=== PATIENT | female | born 1950 | race Caucasian/White ===

== ENCOUNTER 2024-08-22 05:09 | Emergency (ER) | payer MEDICARE, SELFPAY ==
[2024-08-22 05:10] VITALS: BP 111/70; PULSE 74; RESP 16; TEMP 36.4; O2SAT 98; BMI 37.0
--- OUTSIDE RECORDS SUMMARY | 2024-08-22 05:41 | XMS RPT_ITS | CCD ---
Author Organization [facility] Care Team Providers Care Auto Appraiser Name Role Phone GAYLA DICKENS Unavailable Unavailable GAYLA DICKENS Unavailable Unavailable IMCA Unavailable Unavailable Silvestre Chance DO Primary Care Provider Sonia Fox MD Unavailable Silvestre Chance DO Primary Care Provider Sonia Fox MD Unavailable Silvestre Chance DO Primary Care Provider Silvestre Chance DO Primary Care Provider Sonia Fox MD Unavailable Sam Feldman DO Unavailable Eliu Diaz Unavailable Unavailable Rajesh Ignacio PT Unavailable Sam Feldman DO Unavailable Silvestre Chance DO Primary Care Provider KAYLA JEWELL Referring Unavailable SILVESTRE CHANCE Primary Care Unavailable Mateus MORALES Rajesh Unavailable Sonia Fox MD Unavailable Magdiel SUPERVISOR SIGN SHOP.Kayla FAY Unavailable Jerald SUPERVISOR SIGN SHOPKianna BARAJAS Unavailable DYLAN LIANG Attending Unavailable SILVESTRE CHANCE Primary Care Unavailable DYLAN LIANG Attending Unavailable SILVESTRE CHANCE Primary Care Unavailable DASHAWN LOWERY Attending Unavailable SILVESTRE CHANCE Primary Care Unavailable DASHAWN LOWERY Attending Unavailable CHANCE, SILVESTRE L Primary Care Unavailable MELINDA TELLEZ Attending Unavailable CHANCE, SILVESTRE L Primary Care Unavailable MELINDA TELLEZ Attending Unavailable CHANCE, SILVESTRE L Primary Care Unavailable SisBrda Marquezin Unavailable Unavailable Sam Feldman Unavailable Nela Ferreira MD Unavailable Nela Ferreira MD Unavailable Mateus MORALES, Rajesh Unavailable NELA FERREIRA Referring Unavailable CHANCE, SILVESTRE Cesia Primary Care Unavailable NELA FERREIRA Referring Unavailable CHANCE, SILVESTRE Cesia Primary Care Unavailable АННА PEREZ Attending Unavailable NELA FERREIRA Referring Unavailable CHANCE, SILVESTRE Cesia Primary Care Unavailable АННА PEREZ Attending Unavailable NELA FERREIRA Referring Unavailable CHANCE, SILVESTRE Cesia Primary Care Unavailable АННА PEREZ Attending Unavailable NELA FERREIRA Referring Unavailable CHANCE, SILVESTRE Cesia Primary Care Unavailable NELA FERREIRA Referring Unavailable CHANCE, SILVESTRE Cesia Primary Care Unavailable GILDARDO MATHIAS Consulting Unavailable NELA FERREIRA Attending Unavailable NELA FERREIRA Admitting Unavailable CHANCE, SILVESTRE Cesia Primary Care Unavailable NELA FERREIRA Referring Unavailable CHANCE, SILVESTRE Cesia Primary Care Unavailable SAM FABIAN Referring Unavailable CHANCE, SILVESTRE Cesia Primary Care Unavailable NELA FERREIRA Referring Unavailable NELA FERREIRA Attending Unavailable CHANCE, SILVESTRE Cesia Primary Care Unavailable NELA FERREIRA Referring Unavailable CHANCE, SILVESTRE L Primary Care Unavailable CHANCE, SILVESTRE L Primary Care Unavailable SAM FABIAN Attending Unavailable CHANCE, SILVESTRE L Primary Care Unavailable EREN COYLE Referring Unavailable NELA FERREIRA Attending Unavailable CHANCE, SILVESTRE L Primary Care Unavailable CHANCE, SILVESTRE L Primary Care Unavailable CHANCE, SILVESTRE L Attending Unavailable CHANCE, SILVESTRE L Primary Care Unavailable SANDY MERIDA Attending Unavailable CHANCE, SILVESTRE L Primary Care Unavailable EREN COYLE Referring Unavailable CHANCE, SILVESTRE L Primary Care Unavailable SONIA IBARRA Referring Unavailable CHANCE, SILVESTRE L Primary Care Unavailable EREN COYLE Attending Unavailable SELF Referring Unavailable CHANCE, SILVESTRE L Primary Care Unavailable AMBER NASH Attending Unavailable CHANCE, SILVESTRE L Primary Care Unavailable CHANCE, SILVESTRE L Primary Care Unavailable CHANCE, SILVESTRE L Primary Care Unavailable NELA FERREIRA E Attending Unavailable CHANCE, SILVESTRE L Primary Care Unavailable FACUNDO TEMPLE Attending Unavailable CHANCE, SILVESTRE L Primary Care Unavailable AMBER NASH Attending Unavailable CHANCE, SILVESTRE L Primary Care Unavailable NELA FERREIRA E Attending Unavailable CHANCE, SILVESTRE L Primary Care Unavailable CHANCE, SILVESTRE L Primary Care Unavailable АННА PEREZ Attending Unavailable NELA FERREIRA Referring Unavailable SILVESTRE CHANCE Primary Care Unavailable АННА PEREZ Attending Unavailable NELA FERREIRA Referring Unavailable Gama ROMERON.OVEN BAKER, Sandy Coleman Unavailable Allergies Allergy Classification Reported Allergen(s) Allergy Type Date of Onset Reaction(s) Facility (20 sources) atorvastatin; Translations: [ATORVASTATIN CALCIUM] Drug Allergy 6 Myalgia [facility] Repository (20 sources) codeine; Translations: [CODEINE] Drug Allergy 8 Mental Status Change [facility] Repository (20 sources) rosuvastatin; Translations: [ROSUVASTATIN CALCIUM] Drug Allergy 6 Myalgia [facility] Repository (9 sources) HMG-CoA reductase inhibitor; Translations: [[id number] REDUCTASE INHIBITORS] Drug Allergy 5 Unknown [facility] Medications Current Medications Medication Drug Class(es) Dates Sig (Normalized) Sig (Original) acetaminophen 500 mg oral tablet (20 sources) Start: 08-15-2024 take 2 tablets by mouth every eight hours in the evening acetaminophen (TYLENOL) 500 mg tablet Take 2 tablets by mouth every 8 hours. 84 tablet 08/15/2024 2:46 PM EDT 08/15/2024 Active Start: 01-03-2023 End: 07-27-2023 take 2 tablets by mouth every eight hours as needed acetaminophen (TYLENOL) 500 mg tablet Take 2 tablets by mouth every 8 hours as needed for pain. 90 tablet 01/03/2023 07/27/2023 Discontinued Comment on above: Take 2 tablets by [facility] every 8 hours as needed for pain. ascorbic acid 500 mg oral tablet (20 sources) Vitamin C Start: 08-15-2024 End: 08-29-2024 take 1 tablet by mouth twice daily at mealtime ascorbic acid, vitamin C, (VITAMIN C) 500 mg tablet Take 1 tablet by mouth two times a day with meals for 27 doses. 27 tablet 08/15/2024 08/29/2024 Active End: 08-15-2024 take 4 tablets by mouth once daily ascorbic acid, vitamin C, (VITAMIN C) 500 mg tablet Take 2,000 mg by mouth once daily. 08/15/2024 Discontinued Comment on above: Take 2,000 mg by osiris once daily. aspirin 81 mg delayed release oral tablet (20 sources) Platelet Aggregation Inhibitor, Nonsteroidal Anti-inflammatory Drug Start: 08-15-2024 take 1 tablet by mouth twice daily in the evening aspirin, enteric coated (ASPIRIN, ENTERIC COATED) 81 mg EC tablet Take 1 tablet by mouth two times a day. 60 tablet 08/15/2024 2:46 PM EDT 08/15/2024 Active Start: 01-03-2023 End: 07-27-2023 take 1 tablet by mouth twice daily aspirin, enteric coated (ASPIRIN, ENTERIC COATED) 81 mg EC tablet Take 1 tablet by mouth two times a day for 28 days. 56 tablet 01/03/2023 07/27/2023 Discontinued Comment on above: Take 1 tablet by osiris two times a day for 28 days. B-Complex Plus (Pure Encapsulations) - 1qD stress/energy/hormones/d etox/weight loss (20 sources) Start: 07-20-19 18 take 1 capsule by mouth once daily B-Complex Plus (Pure Encapsulations) - 1qD stress/energy/hormones/ detox/weight loss Take 1 capsule by mouth once daily. 0 07/19/2017 Active Comment on above: Take 1 capsule by [facility] once daily. cholecalciferol 0.025 mg oral tablet (20 sources) Vitamin D take 1 tablet by mouth once daily cholecalciferol (VITAMIN D3) 1,000 unit tab tablet Take 1,000 Units by mouth once daily. Active Comment on above: Take 1,000 Units by mouth once daily. docusate sodium 100 mg oral capsule (18 sources) Start: 08-16-19 take 1 capsule by mouth twice daily in the evening docusate sodium (COLACE) 100 mg capsule Take 1 capsule by mouth two times a day. 28 capsule 08/15/2024 2:46 PM EDT 08/15/2024 Active Start: 01-03-2023 End: 02-02-2023 take 1 capsule by mouth every twelve hours as needed docusate sodium (COLACE) 100 mg capsule Take 1 capsule by mouth two times a day as needed for constipation. 60 capsule 01/03/2023 02/02/2023 Comment on above: Take 1 capsule by mo uth two times a day as needed for constipation. Magnesium (20 sources) Start: take 4 capsules by mouth once daily MAGNESIUM ORAL Take 135 Units by mouth once daily. Takes 4 capsules daily 01/04/2023 Active Start: 01-04-2023 take 4 capsules by m outh once daily MAGNESIUM ORAL Take 135 Units by mouth once daily. Takes 4 capsules daily 0 01/04/2023 Active take 6 capsules by m outh once daily MAGNESIUM ORAL Take 135 Units by mouth once daily. Takes 6 capsules daily 0 Active Comment on above: Take 135 Units by mo uth once daily. Takes 6 capsules daily Take 135 Units by mo uth once daily. Takes 4 capsules daily MEDICATION, NON-DATABASE (20 sources) MEDICATION, NON- DATABASE Medical Marijuana Cream Active MEDICATION, NON- DATABASE Medical Marijuana Cream 0 Active 24 hr metoprolol succinate 25 mg extended release oral tablet (20 sources) beta-Adrenergic Reina Start: 08-29-2023 End: 06-06-2024 take 1 tablet by mouth once daily metoprolol succinate ER (TOPROL XL) 25 mg 24 hr tablet Take 1 tablet by mouth once daily. 90 tablet 3 06/06/2024 Active Start: 08-29-2022 End: 08-28-2023 metoprolol succinate ER (TOP ROL XL) 25 mg 24 hr tablet Indications: PAF (paroxysmal atrial fibrillation) ([facility]) [The details of the medication are not available because there are pending changes by a home health clinician.] 90 tablet 3 08/29/2022 08/28/2023 Discontinued Start: 08-29-2021 End: 08-29-2022 take 1 tablet by mouth once daily metoprolol succinate ER (TOPROL XL) 25 mg 24 hr tablet Indications: PAF (paroxysmal atrial fibrillation) (HCC) Take 1 tablet by mouth once daily. 90 tablet 3 08/29/2022 Active Start: 08-18-2020 End: 08-26-2021 take 1 tablet by mouth once daily metoprolol succinate ER (TOPROL XL) 25 mg 24 hr tablet Indications: PAF (paroxysmal atrial fibrillation) (HCC) Take 1 tablet by mouth once daily. 90 tablet 3 08/18/2020 08/26/2021 Discontinued Comment on above: Take 1 tablet by [facility] once daily. [The details of the medication are not available because there are pending changes by a home health clinician.] OmegaGenics EPA-DHA 2400 (High Concentrate EPA/DHA liquid) (LearnSomething) (20 sources) Start: 12-21-2020 OmegaGenics EPA-DHA 2400 (High Concentrate EPA/DHA liquid) (LearnSomething) Take one teaspoon (5 ml) 1 times daily with food 12/21/2020 Active Start: 12-21-2020 OmegaGenics EP A-DHA 2400 (High Concentrate EPA/DHA liquid) (LearnSomething) [The details of the medication are not available because there are pending changes by a home health clinician.] 12/21/2020 Active Start: 12-21-2020 OmegaGenics EP A-DHA 2400 (High Concentrate EPA/DHA liquid) (LearnSomething) [The details of the medication are not available because there are pending changes by a home health clinician.] 0 12/21/2020 Active Start: 12-21-2020 OmegaGenics EP A-DHA 2400 (High Concentrate EPA/DHA liquid) (LearnSomething) Take one teaspoon (5 ml) 1 times daily with food 0 12/21/2020 Active Comment on above: Take one teaspoon (5 ml) 1 times daily with food [The details of the medication are not available because there are pending changes by a home health clinician.] ondansetron 4 mg disintegrating oral tablet (7 sources) Serotonin-3 Receptor Antagonist Start: 08-16-19 25 take 1 tablet by mouth every six hours as needed for nausea ondansetron orally disintegrating (ZOFRAN ODT) 4 mg disintegrating tablet Indications: Status post total left knee replacement Take 1 tablet by mouth every 6 hours as needed for nausea/vomiting. 28 tablet 08/15/2024 2:46 PM EDT 08/15/2024 Active OTC PRODUCT (20 sources) Start: 08-17-19 take 1 capsule by mouth once daily OTC PRODUCT Take 1 capsule by mouth once daily. ASTAXANTHIN 08/16/2024 Active Start: 08-16-2024 take 2 capsules by m outh twice daily OTC PRODUCT Take 2 capsules by mouth two times a day. ZYFLAMEND 08/16/2024 Active Start: 08-16-2024 take 1 capsule by mo uth once daily OTC PRODUCT Take 1 capsule by mouth once daily. 08/16/2024 Active Start: 08-16-2024 OTC PRODUCT Ta ke 2 capsules by mouth once daily. Black Seed Oil - Capsules Patient should start on August 16, 2024. 08/16/2024 Active Start: 08-16-2024 OTC PRODUCT Ta ke 2 capsules by mouth once daily. Lion's Seb Patient should start on August 16, 2024. 08/16/2024 Active OTC PRODUCT Santosh k Seed Oil - Capsules Active OTC PRODUCT Delmar 'ingrid Grigsby Active oxyCODONE hydrochloride 5 mg oral tablet (7 sources) Opioid Agonist Start: 08-15-2024 End: 08-22-2024 take 1 tablet by mouth every four hours as needed oxyCODONE IR (ROXICODONE) 5 mg immediate release tablet Indications: Status post total left knee replacement Take 1-2 tablets by mouth every 4 hours as needed for pain for up to 7 days. 56 tablet 08/15/2024 2:46 PM EDT 08/15/2024 08/22/2024 Active sennosides, mcc 8.6 mg oral tablet (7 sources) Start: 08-15-2024 take 2 tablets by mouth once daily at bedtime senna (SENOKOT) 8.6 mg tab Take 2 tablets by mouth daily at bedtime. 14 tablet 08/15/2024 2:46 PM EDT 08/15/2024 Active sulfamethoxazole 800 mg / trimethoprim 160 mg oral tablet (7 sources) Dihydrofolate Reductase Inhibitor Antibacterial, Sulfonamide Antimicrobial Start: 07-18-2023 End: 07-23-2023 take 1 tablet by mouth twice daily sulfamethoxazole- trimethoprim (BACTRIM DS) 800-160 mg per tablet Take 1 tablet by mouth two times a day for 5 days. 10 tablet 0 07/18/2023 07/23/2023 Active sjnpinr-idfb-entcj-ore g-capryl 100 mg-150 mg- 50 mg-150 mg cap (20 sources) take 1 tablet by mouth twice daily prxpdpn-yhdx-evaw w-cgav-tjxacr 100 mg-150 mg- 50 mg-150 mg cap Take 1 tablet by mouth twice daily. Active take 1 tablet by osiris th twice daily yeoklzx-odea-frqlt-oreg-capryl 100 mg-15 0 mg- 50 mg-150 mg cap Take 1 tablet by mouth twice daily. 0 Active Comment on above: Take 1 tablet by osiris th twice daily. ubiquinol 200 mg oral capsule (20 sources) Start: 07-19-2017 take 1 capsule by mouth once daily at mealtime CoQ10, Liposomal Ubiquinol, 200 mg cap Take 1 capsule by mouth daily with food. 120 capsule 2 07/19/2017 Active Start: 07-19-2017 CoQ10, Liposom al Ubiquinol, 200 mg cap [The details of the medication are not available because there are pending changes by a home health clinician.] 120 capsule 2 07/19/2017 Active Comment on above: Take 1 capsule by mo [facility] daily with food. [The details of the medication are not available because there are pending changes by a home health clinician.] Completed/Discontinued Medications Medication Drug Class(es) Dates Sig (Normalized) Sig (Original) Betaine HCL Pepsin (Pure Encapsulations) supports digestion of protein (7 sources) Start: 04-12-2017 End: 11-23-2021 Betaine HCL Pepsin (Pure Encapsulations) supports digestion of protein 15 min before meals- Start with one capsule and each protein meal work up (max 5) if you feel warmth or upset stomach back down to a lower dose and that is your dose for that size protein meal. 250 capsule 0 04/12/2017 11/23/2021 Discontinued Start: 04-12-2017 Betaine HCL Pe psin (Pure Encapsulations) supports digestion of protein 15 min before meals- Start with one capsule and each protein meal work up (max 5) if you feel warmth or upset stomach back down to a lower dose and that is your dose for that size protein meal. 250 capsule 0 04/12/2017 Active Comment on above: 15 min before meals- Start with one capsule and each protein meal work up (max 5) if you feel warmth or upset stomach back down to a lower dose and that is your dose for that size protein meal. Buffered Ascorbic Acid capsules (Pure Encapsulations) - Vitamin C (7 sources) Start: 07-19-2017 End: 11-23-2021 Buffered Ascorbic Acid capsules (Pure Encapsulations) - Vitamin C 2 capsules twice a day with or between meals 0 07/19/2017 11/23/2021 Discontinued Start: 07-19-2017 Buffered Ascor bic Acid capsules (Pure Encapsulations) - Vitamin C 2 capsules twice a day with or between meals 0 07/19/2017 Active Comment on above: 2 capsules twice a d ay with or between meals clobetasol propionate 0.0005 mg/mg topical ointment (4 sources) Corticosteroid Start: 11-24-19 End: 03-22-19 23 clobetasol (TEMOVATE) 0.05 % ointment Indications: Vaginal atrophy Apply to affected area twice daily. 15 g 2 11/23/2021 03/22/2022 Discontinued (Discontinued by Patient) Comment on above: Apply to affected ar ea twice daily. diclofenac sodium 0.01 mg/mg topical gel (15 sources) Nonsteroidal Anti-inflammatory Drug Start: 02-17-20 End: 07-27-19 apply 2 g topically every eight hours as needed diclofenac (VOLTAREN) 1 % topical gel Apply 2 g to affected area three times a day as needed. 450 g 1 02/16/2023 07/27/2023 Discontinued erythromycin 0.005 mg/mg ophthalmic ointment (20 sources) Macrolide, Macrolide Antimicrobial Start: 11-04-19 apply 3.5 g into the eye(s) twice daily erythromycin (ROMYCIN) 5 mg/gram (0.5 %) ophthalmic ointment Twice a day for one week, then stop. 3.5 g 0 11/03/2022 Active Start: 10-26-2022 erythromycin ( ROMYCIN) 5 mg/gram (0.5 %) ophthalmic ointment Use 1 application in both eyes four times daily. Apply 1/2 inch ribbon per application 3.5 g 0 10/26/2022 Active Comment on above: Use 1 application in both eyes four times daily. Apply 1/2 inch ribbon per application Twice a day for one week, then stop. fluorouracil 50 mg/ml topical cream (20 sources) Nucleoside Metabolic Inhibitor Start: 3 End: 4 Fluorouracil (EFUDEX) 5 % cream Indications: AK (actinic keratosis) Apply to affected area twice daily for 2-4 weeks until red, blistering response occurs. 40 g 0 02/08/2023 07/27/2023 Discontinued Comment on above: Apply to affected ar ea twice daily for 2-4 weeks until red, blistering response occurs. guaifen/dextromethorp aiken/pe (GUAPHEN FORTE ORAL) (20 sources) End: 3 take 1 capsule by mouth once daily take 1 capsule by mouth once stephie ly Comment on above: Take 1 capsule by mo uth once daily. Unknown units Hepato-Thera Forte (Klaire/Prothera) liver/detox support (7 sources) Start: 10-23-2017 End: 11-23-2021 take 1 capsule by mouth three times daily Hepato-Thera Forte (Klaire/Prothera) liver/detox support Take 1 capsule by mouth three times daily. 0 10/23/2017 11/23/2021 Discontinued Start: 10-23-2017 take 1 capsule by mo uth three times daily Hepato-Thera Forte (Klaire/Prothera) liver/detox support Take 1 capsule by mouth three times daily. 0 10/23/2017 Active Comment on above: Take 1 capsule by mo uth three times daily. Homocysteine [place] (Designs for Creww) (7 sources) Start: 8 End: 2 take 1 capsule by mouth once daily at mealtime Homocysteine [place] (Winning Pitch for Creww) Take 1 capsule by mouth daily with food. 0 07/19/2017 11/23/2021 Discontinued Start: 07-19-2017 take 1 capsule by mo uth once daily at mealtime Homocysteine [place] (Winning Pitch for Creww) Take 1 capsule by mouth daily with food. 0 07/19/2017 Active Comment on above: Take 1 capsule by mo uth daily with food. iv contrast (will be provided with radiology test) (5 sources) Start: 07-17-19 End: 05-15-20 25 inject 1 dose intravenously once iv contrast (will be provided with radiology test) MRI Brain Inject, intravenously, once for 1 dose.No IV access, insert saline lock prior to beginning of sedation, infusion, injection of imaging exam.Discontinue saline lock post exam. If Pt. has a central line or IVAD, may access for administration according to line specific nursing protocol.Once exam is complete flush line and de-access according to line specific nursing protocol in the MR contrast administration guidelines link 1 each 07/16/2024 07/17/2024 Start: 07-16-2024 End: 07-17-2024 inject 1 dose intravenously once iv contrast (will be provided with radiology test) MRI Brain Inject, intravenously, once for 1 dose.No IV access, insert saline lock prior to beginning of sedation, infusion, injection of imaging exam.Discontinue saline lock post exam. If Pt. has a central line or IVAD, may access for administration according to line specific nursing protocol.Once exam is complete flush line and de-access according to line specific nursing protocol in the MR contrast administration guidelines link 1 each 07/16/2024 07/17/2024 Active Start: 07-20-2023 End: 07-21-2023 inject 1 dose intravenously once iv contrast (will be provided with radiology test) Indications: Meningioma (HCC) , Abnormal CT scan of head , Acute confusion MRI Brain Inject, intravenously, once for 1 dose.No IV access, insert saline lock prior to beginning of sedation, infusion, injection of imaging exam.Discontinue saline lock post exam. If Pt. has a central line or IVAD, may access for administration according to line specific nursing protocol.Once exam is complete flush line and de-access according to line specific nursing protocol in the MR contrast administration guidelines link 1 Each 0 07/20/2023 07/21/2023 Active mupirocin 0.02 mg/mg topical ointment (7 sources) RNA Synthetase Inhibitor Antibacterial Start: 06-30-2024 End: 07-16-2024 mupirocin (BACTROBAN) 2 % ointment Apply 0.5 inch with cotton swab (Q-tip) to each nostril in the morning and evening for 5 days prior to and including day of surgery. 22 g 06/30/2024 07/16/2024 Start: 04-03-2024 End: 04-08-2024 mupirocin (BACTROBAN) 2 % oi ntment Indications: Primary osteoarthritis of left knee Apply to affected area two times a day for 5 days. 22 g 04/03/2024 04/08/2024 Active Start: 12-20-2022 End: 01-02-2023 mupirocin (BACTROBAN) 2 % oi ntment Apply 0.5 inch with cotton swab (Q-tip) to each nostril in the morning and evening for 5 days prior to and including day of surgery. 22 g 0 12/20/2022 01/02/2023 Active Comment on above: Apply 0.5 inch with cotton swab (Q-tip) to each nostril in the morning and evening for 5 days prior to and including day of surgery. 24 hr niacin 500 mg extended release oral tablet (7 sources) Nicotinic Acid Start: 03-14-2016 End: 11-23-2021 take 1 tablet by mouth once daily at bedtime niacin ER (NIASPAN) 500 mg tablet Take 1 tablet by mouth daily at bedtime. 30 tablet 5 03/14/2016 11/23/2021 Discontinued Comment on above: Take 1 tablet by osiris th daily at bedtime. OmegAvail [id number] (Winning Pitch for Creww) (20 sources) Start: 04-12-2017 End: 09-12-2022 OmegAvail [id number] (TravelerCar) Take one softgel twice daily 0 04/12/2017 09/12/2022 Discontinued (Course of therapy completed) Start: 04-12-2017 OmegAvail [id number] (TravelerCar) Take one softgel twice daily 0 04/12/2017 Active Comment on above: Take one softgel twi ce daily perflutren lipid microspheres 1.3 mL in NaCl (PF) 0.9% 10 mL injection (DEFINITY) (20 sources) Start: 03-23-2022 End: 06-22-2023 perflutren lipid microspheres 1.3 mL in NaCl (PF) 0.9% 10 mL injection (DEFINITY) polyethylene glycol 3350 07388 mg powder for oral solution (6 sources) Osmotic Laxative Start: 01-03-2023 End: 01-17-2023 polyethylene glycol 3350 (MIRALAX) 17 gram/dose powder Take 17 g by mouth once daily as needed for constipation for up to 10 days. Dissolve dose in 4 - 8 ounces of liquid and take as directed. 238 g 01/03/2023 01/17/2023 Comment on above: Take 17 g by mouth o nce daily as needed for constipation for up to 10 days. Dissolve dose in 4 - 8 ounces of liquid and take as directed. 125 ml sodium chloride 9 mg/ml prefilled syringe (20 sources) Start: 03-23-2022 End: 06-22-2023 sodium chloride 0.9 % (flush) 10 mL (BD POSIFLUSH) Succimer (7 sources) Lead Chelator Start: 02-09-2021 End: 11-23-2021 Succimer (Bulk) 500 mg (CPD) Indications: Heavy metal exposure Comments for compounding pharmacy: [facility] Take three 500mg tabs after First Morning Void. Then collect urine x 6 hours. 3 capsule 0 02/09/2021 11/23/2021 Discontinued Start: 02-09-2021 Succimer (Bulk ) 500 mg (CPD) Indications: Heavy metal exposure Comments for compounding pharmacy: [facility] Take three 500mg tabs after First Morning Void. Then collect urine x 6 hours. 3 capsule 0 02/09/2021 Active Comment on above: Comments for compoun ding pharmacy: [facility] Take three 500mg tabs after First Morning Void. Then collect urine x 6 hours. The Whole Probiotic (Biohm) (7 sources) Start: 8 End: 2 take 1 capsule by mouth once daily The Whole Probiotic (Biohm) Take 1 capsule by mouth once daily. Treatment 3-6 months 0 07/19/2017 11/23/2021 Discontinued Start: 07-19-2017 take 1 capsule by mo [facility] once daily The Whole Probiotic (Biohm) Take 1 capsule by mouth once daily. Treatment 3-6 months 0 07/19/2017 Active Comment on above: Take 1 capsule by mo [facility] once daily. Treatment 3-6 months Ther-Biotic Detoxification Support (Klaire/Prothera) probiotic (FRIDGE) (20 sources) Start: 04-12-19 18 End: 09-13-19 23 take 1 capsule by mouth once daily Ther-Biotic Detoxification Support (Klaire/Prothera) probiotic (FRIDGE) Take 1 capsule by mouth once daily. 0 04/12/2017 09/12/2022 Discontinued (Course of therapy completed) Start: 04-12-2017 take 1 capsule by mo uth once daily Ther-Biotic Detoxification Support (Klaire/Prothera) probiotic (FRIDGE) Take 1 capsule by mouth once daily. 0 04/12/2017 Active Comment on above: Take 1 capsule by mo ut once daily. traMADol hydrochloride 50 mg oral tablet (20 sources) Opioid Agonist Start: 3 End: 4 take 1-2 tablets by mouth every six hours as needed for pain traMADol (ULTRAM) 50 mg tablet Indications: S/P total knee arthroplasty, right Take 1-2 tablets by mouth every 6 hours as needed for pain. 50 tablet 01/03/2023 07/27/2023 Discontinued Comment on above: Take 1-2 tablets by mouth every 6 hours as needed for pain. UltraNutrient (Pure Encapsulations) 3BID Multi-vitamin/coq10/mi lk thistle/turmeric/ginge r/alphalipoic acid/B complex (20 sources) Start: 8 End: 3 UltraNutrient (Pure Encapsulations) 3BID Multi-vitamin/coq10/mi lk thistle/turmeric/ginge r/alphalipoic acid/B complex 3 capsules twice a day with meals 0 10/23/2017 09/12/2022 Discontinued (Course of therapy completed) Start: 10-23-2017 UltraNutrient (Pure Encapsulations) 3BID Multi- vitamin/coq10/milk thistle/turmeric/mina/alphalipoic acid/B complex 3 capsules twice a day with meals 0 10/23/2017 Active Comment on above: 3 capsules twice a d ay with meals Vitamin D [place] ([employer]) (7 sources) Start: 07-19-2017 End: 11-23-2021 take 1 capsule by mouth once daily at mealtime Vitamin D [place] ([employer] for Health) Take 1 capsule by mouth daily with food. 0 07/19/2017 11/23/2021 Discontinued Start: 07-19-2017 take 1 capsule by mo ut once daily at mealtime Vitamin D [place] ([employer]) Take 1 capsule by mouth daily with food. 0 07/19/2017 Active Comment on above: Take 1 capsule by mo uth daily with food. Problems Active Problems Problem Classification Problem Date Documented Date Episodic/Chronic Allergic reactions (2 sources) Urticaria; Translations: [Urticaria, unspecified] Onset: 07-30-2024 07-30-2024 Episodic Cardiac dysrhythmias (20 sources) Paroxysmal atrial fibrillation; Translations: [Paroxysmal atrial fibrillation] Onset: 06-26-2017 06-26-2017 Chronic Cardiac dysrhythmias (1 source) Palpitations; Translations: [Palpitations] Episodic Complication of device; implant or graft (2 sources) Dislocation of other internal joint prosthesis, initial encounter; Translations: [Dislocation of prosthetic joint] 09-10-2023 Episodic Complications of surgical procedures or medical care (1 source) Atrial fibrillation; Translations: [Other postprocedural complications and disorders of the circulatory system, not elsewhere classified] Episodic Coronary atherosclerosis and other heart disease (20 sources) Coronary arteriosclerosis; Translations: [Atherosclerotic heart disease of [place] coronary artery without angina pectoris] Onset: 10-15-2015 Resolved: 03-11-2019 10-15-2015 Chronic Deficiency and other anemia (2 sources) Anemia; Translations: [Anemia, unspecified] 04-03-2024 Episodic Deficiency and other anemia (1 source) Anemia, unspecified; Translations: [Anemia, unspecified type] Onset: 06-30-2024 Episodic Disorders of lipid metabolism (20 sources) Hyperlipidemia; Translations: [Hyperlipidemia, unspecified] Onset: 10-07-2012 09-13-2017 Chronic Essential hypertension (2 sources) Essential hypertension; Translations: [Essential (primary) hypertension] Onset: 07-30-2024 07-30-2024 Chronic Menopausal disorders (20 sources) Postmenopausal bleeding; Translations: [Postmenopausal bleeding] Onset: 12-27-2007 12-27-2007 Chronic Nutritional deficiencies (20 sources) Vitamin D deficiency; Translations: [Vitamin D deficiency, unspecified] Onset: 09-13-2017 09-13-2017 Chronic Osteoarthritis (20 sources) Primary gonarthrosis, bilateral; Translations: [Bilateral primary osteoarthritis of knee] Onset: 01-22-2023 Chronic Other aftercare (20 sources) Patient encounter status; Translations: [Aftercare following joint replacement surgery] Onset: 10-09-2023 10-09-2023 Chronic Other aftercare (1 source) Aftercare following joint replacement surgery; Translations: [Aftercare following right knee joint replacement surgery] Onset: 01-30-2024 Chronic Other and unspecified benign neoplasm (4 sources) Neoplasm of meninges; Translations: [Benign neoplasm of meninges, unspecified] 07-20-2023 Chronic Other and unspecified benign neoplasm (5 sources) Benign neoplasm of meninges; Translations: [Benign neoplasm of meninges, unspecified] 07-20-2023 Chronic Other and unspecified benign neoplasm (2 sources) Benign neoplasm of meninges, unspecified; Translations: [Meningioma (HCC)] Onset: 07-20-2023 Chronic Other bone disease and musculoskeletal deformities (4 sources) Somatic dysfunction of thoracic region; Translations: [Segmental and somatic dysfunction of thoracic region] 09-07-2023 Episodic Other bone disease and musculoskeletal deformities (5 sources) Somatic dysfunction of lumbar region; Translations: [Segmental and somatic dysfunction of lumbar region] 09-07-2023 Episodic Other bone disease and musculoskeletal deformities (3 sources) Somatic dysfunction of sacral region; Translations: [Segmental and somatic dysfunction of sacral region] 09-07-2023 Episodic Other bone disease and musculoskeletal deformities (3 sources) Somatic dysfunction of pelvic region; Translations: [Segmental and somatic dysfunction of pelvic region] 09-07-2023 Episodic Other bone disease and musculoskeletal deformities (6 sources) Somatic dysfunction of lower limb; Translations: [Segmental and somatic dysfunction of lower extremity] 09-07-2023 Episodic Other bone disease and musculoskeletal deformities (3 sources) Somatic dysfunction of abdominal region; Translations: [Segmental and somatic dysfunction of abdomen and other regions] 03-04-2024 Episodic Other bone disease and musculoskeletal deformities (1 source) Somatic dysfunction of upper limb; Translations: [Segmental and somatic dysfunction of upper extremity] 04-11-2024 Episodic Other bone disease and musculoskeletal deformities (2 sources) Somatic dysfunction of sacral spine; Translations: [Segmental and somatic dysfunction of sacral region] 04-11-2024 Episodic Other bone disease and musculoskeletal deformities (1 source) Somatic dysfunction of head region; Translations: [Segmental and somatic dysfunction of head region] 06-10-2024 Episodic Other bone disease and musculoskeletal deformities (1 source) Somatic dysfunction of rib; Translations: [Segmental and somatic dysfunction of rib cage] 06-10-2024 Episodic Other bone disease and musculoskeletal deformities (1 source) Cervical somatic dysfunction; Translations: [Segmental and somatic dysfunction of cervical region] 06-10-2024 Episodic Other bone disease and musculoskeletal deformities (1 source) Segmental and somatic dysfunction of head region; Translations: [Somatic dysfunction of head region] Onset: 06-10-2024 Episodic Other bone disease and musculoskeletal deformities (1 source) Segmental and somatic dysfunction of pelvic region; Translations: [Somatic dysfunction of pelvis region] Onset: 06-10-2024 Episodic Other bone disease and musculoskeletal deformities (1 source) Segmental and somatic dysfunction of rib cage; Translations: [Somatic dysfunction of rib] Onset: 06-10-2024 Episodic Other bone disease and musculoskeletal deformities (2 sources) Segmental and somatic dysfunction of thoracic region; Translations: [Somatic dysfunction of spine, thoracic] Onset: 11-13-2023 Episodic Other bone disease and musculoskeletal deformities (1 source) Segmental and somatic dysfunction of upper extremity; Translations: [Somatic dysfunction of upper extremity] Onset: 04-11-2024 Episodic Other bone disease and musculoskeletal deformities (2 sources) Segmental and somatic dysfunction of lumbar region; Translations: [Somatic dysfunction of spine, lumbar] Onset: 03-04-2024 Episodic Other bone disease and musculoskeletal deformities (2 sources) Segmental and somatic dysfunction of sacral region; Translations: [Somatic dysfunction of sacral spine] Onset: 03-04-2024 Episodic Other bone disease and musculoskeletal deformities (2 sources) Segmental and somatic dysfunction of lower extremity; Translations: [Somatic dysfunction of lower extremity] Onset: 11-13-2023 Episodic Other bone disease and musculoskeletal deformities (1 source) Segmental and somatic dysfunction of abdomen and other regions; Translations: [Somatic dysfunction of abdominal region] Onset: 04-11-2024 Episodic Other connective tissue disease (20 sources) History of total knee arthroplasty; Translations: [Presence of right artificial knee joint] Onset: 01-03-2023 01-03-2023 Chronic Other connective tissue disease (2 sources) Presence of right artificial knee joint; Translations: [S/P total knee arthroplasty, right] Onset: 01-03-2023 Chronic Other connective tissue disease (1 source) Presence of left artificial knee joint; Translations: [Status post total left knee replacement] Onset: 08-14-2024 Chronic Other connective tissue disease (1 source) Pain of right lower leg; Translations: [Pain in right lower leg] 02-15-2023 Episodic Other connective tissue disease (1 source) Pes anserinus bursitis of right knee; Translations: [Other bursitis of knee, right knee] 09-10-2023 Episodic Other connective tissue disease (1 source) Finding of thigh; Translations: [Other specified disorders of muscle] 09-07-2023 Episodic Other eye disorders (1 source) Dermatochalasis of right upper eyelid; Translations: [Dermatochalasis] 09-12-2022 Episodic Other eye disorders (1 source) Bilateral myogenic ptosis of eyes; Translations: [Myogenic ptosis of bilateral eyelids] 09-12-2022 Episodic Other nervous system disorders (5 sources) Other chronic pain; Translations: [Chronic pain of left knee] Onset: 01-30-2024 Chronic Other non-traumatic joint disorders (1 source) Pain in left knee; Translations: [Chronic pain of left knee] Onset: 04-11-2024 Episodic Other nutritional; endocrine; and metabolic disorders (20 sources) Cholesterol level - finding; Translations: [Lipoprotein deficiency] Onset: 10-07-2012 10-07-2012 Chronic Other nutritional; endocrine; and metabolic disorders (20 sources) Body mass index 30+ - obesity; Translations: [Body mass index (BMI) 34.0-34.9, adult] Onset: 04-12-2017 07-19-2017 Chronic Other nutritional; endocrine; and metabolic disorders (20 sources) Insulin resistance; Translations: [Metabolic syndrome] Onset: 07-19-2017 07-19-2017 Chronic Other nutritional; endocrine; and metabolic disorders (1 source) Body mass index (BMI) 37.0-37.9, adult; Translations: [BMI 37.0-37.9, adult] Onset: 06-30-2024 Chronic Other screening for suspected conditions (not mental disorders or infectious disease) (11 sources) Patient encounter status; Translations: [Encounter for screening mammogram for malignant neoplasm of breast] Onset: 07-20-2023 Episodic Poisoning by nonmedicinal substances (15 sources) Spider bite wound; Translations: [Toxic effect of unspecified spider venom, accidental (unintentional), initial encounter] Onset: 07-30-2024 07-30-2024 Episodic Residual codes; unclassified (4 sources) Pain; Translations: [Pain, unspecified] Episodic Residual codes; unclassified (2 sources) Postoperative state; Translations: [Other specified postprocedural states] 11-03-2022 Episodic Residual codes; unclassified (5 sources) Acute confusion; Translations: [Disorientation, unspecified] 07-02-2023 Episodic Residual codes; unclassified (1 source) Disorientation, unspecified; Translations: [Acute confusion] Onset: 07-20-2023 Episodic Thyroid disorders (20 sources) Multinodular goiter; Translations: [Nontoxic multinodular goiter] Onset: 10-29-2012 10-29-2012 Chronic Transient cerebral ischemia (1 source) Cerebral ischemia; Translations: [Transient cerebral ischemic attack, unspecified] 07-02-2023 Chronic Unclassified (1 source) Unknown / UNK(Unknown) Onset: 06-26-2017 Unclassified (20 sources) 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 Saxophones Onset: 04-14-2024 04-14-2024 Unclassified (1 source) Chronic left-sided low back pain without sciatica; Translations: [Chronic left-sided low back pain without sciatica] Onset: 04-11-2024 Unclassified (1 source) Chronic bilateral low back pain, unspecified whether sciatica present; Translations: [Chronic bilateral low back pain, unspecified whether sciatica present] Onset: 04-24-2024 Unclassified (1 source) Pre-Op Exam Onset: 06-30-2024 Urinary tract infections (1 source) Recurrent urinary tract infection; Translations: [Urinary tract infection, site not specified] 08-06-2023 Episodic Past or Other Problems Problem Classification Problem Date Documented Da te Episodic/Chronic Benign neoplasm of uterus (20 sources) Uterine leiomyoma; Translations: [Leiomyoma of uterus, unspecified] Onset: 12-27-2007 12-27-2007 Episodic Diabetes mellitus without complication (20 sources) Hyperglycemia; Translations: [Hyperglycemia, unspecified] Onset: 01-02-2024 01-02-2024 Episodic Genitourinary symptoms and ill-defined conditions (20 sources) Dysuria; Translations: [Dysuria] Onset: 01-02-2024 01-02-2024 Episodic Heart valve disorders (20 sources) Mitral valve regurgitation; Translations: [Nonrheumatic mitral (valve) insufficiency] Onset: 10-15-2015 Resolved: 04-26-2016 04-26-2016 Chronic Other connective tissue disease (20 sources) Muscle pain; Translations: [Myalgia, unspecified site] Onset: 01-02-2024 01-02-2024 Episodic Other female genital disorders (20 sources) Mucous polyp of cervix; Translations: [Polyp of cervix uteri] Onset: 12-27-2007 12-27-2007 Episodic Other non-traumatic joint disorders (20 sources) Pain in right knee; Translations: [Pain in joint, lower leg] Onset: 09-10-2023 Episodic Other non-traumatic joint disorders (1 source) Knee pain Onset: 09-07-2023 Episodic Other nutritional; endocrine; and metabolic disorders (20 sources) Obesity; Translations: [Obesity, unspecified] Onset: 10-15-2015 Resolved: 04-12-2017 04-12-2017 Chronic Other skin disorders (13 sources) Dry skin; Translations: [Xerosis cutis] Onset: 04-12-2017 04-12-2017 Episodic Other skin disorders (20 sources) Loss of hair; Translations: [Nonscarring hair loss, unspecified] Onset: 04-12-2017 04-12-2017 Episodic Other skin disorders (20 sources) Xeroderma; Translations: [Xerosis cutis] Onset: 04-12-2017 04-12-2017 Episodic Other skin disorders (20 sources) Actinic keratosis; Translations: [Actinic keratosis] Onset: 01-02-2024 02-08-2023 Episodic Residual codes; unclassified (20 sources) Exposure to mercury; Translations: [Contact with and (suspected) exposure to other hazardous metals] Onset: 04-12-2017 04-12-2017 Episodic Residual codes; unclassified (1 source) Pain, unspecified; Translations: [Pain] Onset: 04-03-2024 Episodic Screening and history of mental health and substance abuse codes (20 sources) Ex-smoker; Translations: [Personal history of nicotine dependence] Onset: 12-21-2022 12-21-2022 Episodic Spondylosis; intervertebral disc disorders; other back problems (20 sources) Sacral back pain; Translations: [Sacrococcygeal disorders, not elsewhere classified] Onset: 04-24-2024 10-03-2023 Episodic Results Test Name Value Interpretation Reference Range Facility CNCOon 08-18-2024 CNCO Letter Text Normal [facility] CNPNon 08-17-2024 CNPN Telephone (HCSIND) MORIA SUH ([id number]) 1950 F Date Time Provider Department 08/17/24 RAJESH IGNACIO HCSIND During your visit today, we recorded the following information about you: Rajesh Ignacio, PT 08/17/2024 6:02 PM Signed Hello team I spoke with Moira this evening and she reports no new bleeding but she does not feel that the wrapped ABD's are enough protection. [place] I explained that home care does not have access to silver dressings but I would ask if she can obtain one from your office . Pts spouse is willing to come pick it up if you think it is appropriate Please advise Thanks Rajesh PT Allergies As of Date: 08/17/2024 Noted Allergy Reaction ATORVASTATIN CALCIUM 02/15/2016 17 - Myalgia Comments: Caused severe myalgias to bilateral thighs and across back CODEINE 12/27/2007 1 - Mental Status Change Comments: Can hear whats going on around her but she can't wake up CRESTOR (ROSUVASTATIN CALCIUM) 02/15/2016 17 - Myalgia Comments: 20 mg caused severe myalgias to upper thighs and across back [id number] REDUCTASE INHIBIT*08/14/2024 16 - Unknown Date Reviewed: 08/16/2024 Reviewed by: Rajesh Ignacio, PT - Fully Assessed Reason for Visit: Home Care [4073] Cmt: Pt would like a new silverlon Prescriptions as of 08/18/2024 - OTC PRODUCT Take 1 capsule by mouth once daily. ASTAXANTHIN - OTC PRODUCT Take 2 capsules by mouth two times a day. ZYFLAMEND - OTC PRODUCT Take 1 capsule by mouth once daily. - ascorbic acid, vitamin C, (VITAMIN C) 500 mg tablet Take 1 tablet by mouth two times a day with meals for 27 doses. - acetaminophen (TYLENOL) 500 mg tablet Take 2 tablets by mouth every 8 hours. - aspirin, enteric coated (ASPIRIN, ENTERIC COATED) 81 mg EC tablet Take 1 tablet by mouth two times a day. - docusate sodium (COLACE) 100 mg capsule Take 1 capsule by mouth two times a day. - ondansetron orally disintegrating (ZOFRAN ODT) 4 mg disintegrating tablet Take 1 tablet by mouth every 6 hours as needed for nausea/vomiting. - oxyCODONE IR (ROXICODONE) 5 mg immediate release tablet Take 1-2 tablets by mouth every 4 hours as needed for pain for up to 7 days. - senna (SENOKOT) 8.6 mg tab Take 2 tablets by mouth daily at bedtime. - OTC PRODUCT Take 2 capsules by mouth once daily. Black Seed Oil - Capsules Patient should start on August 16, 2024. - OTC PRODUCT Take 2 capsules by mouth once daily. Delmar'ingrid [place] Patient should start on August 16, 2024. - metoprolol succinate ER (TOPROL XL) 25 mg 24 hr tablet Take 1 tablet by mouth once daily. - xyohchz-tvur-jdxji-oreg -capryl 100 mg-150 mg- 50 mg-150 mg cap Take 1 tablet by mouth twice daily. - OmegaGenics EPA-DHA 2400 (High Concentrate EPA/DHA liquid) (LearnSomething) Take one teaspoon (5 ml) 1 times daily with food - MAGNESIUM ORAL Take 135 Units by mouth once daily. Takes 4 capsules daily - B-Complex Plus (Pure Encapsulations) - 1qD stress/energy/hormones/ detox/weight loss Take 1 capsule by mouth once daily. - CoQ10, Liposomal Ubiquinol, 200 mg cap Take 1 capsule by mouth daily with food. - cholecalciferol (VITAMIN D3) 1,000 unit tab tablet Take 1,000 Units by mouth once daily. Meds Comments as of 08/16/2024: Current per pt.09/28/15 11.2.23 - patient reports she was told that it is now okay to resume taking all supplements/meds. 08/16/24- Holding supplements until MD says to resume Problem List As Of Date 08/17/2024 Noted Resolved UTERINE LEIOMYOMA NOS [D25.9] 12/27/2007 MUCOUS POLYP OF CERVIX [N84.1] 12/27/2007 POSTMENOPAUSAL BLEEDING [N95.0] 12/27/2007 Low HDL (under 40) [E78.6] 10/07/2012 Hyperlipidemia [E78.5] 10/07/2012 Multinodular goiter [E04.2] 10/29/2012 CAD (coronary artery disease) [I25.10] 10/15/2015 H/O non-ST elevation myocardial infarction (NST*10/15/2015 S/P CABG x 3 (L-LAD, S-CX, S-RCA) 07/2015 [Z95.1]10/15/2015 Cardiomyopathy, ischemic [I25.5] 10/15/2015 03/11/2019 Moderate mitral regurgitation [I34.0] 10/15/2015 04/26/2016 Obesity [E66.9] 10/15/2015 04/12/2017 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] 04/12/2017 Dry skin [L85.3] 04/12/2017 Hair loss [L65.9] 04/12/2017 BMI 37.0-37.9, adult [Z68.37] 04/12/2017 Exposure to mercury [Z77.018] 04/12/2017 PAF (paroxysmal atrial fibrillation) (HCC) [I48*06/26/2017 Insulin resistance [E88.819] 07/19/2017 Vitamin D deficiency [E55.9] 09/13/2017 Former smoker [Z87.891] 12/21/2022 S/P total knee arthroplasty, right [Z96.651] 01/03/2023 Primary osteoarthritis of left knee [M17.12] 01/22/2023 Primary osteoarthritis of right knee [M17.11] 01/22/2023 Medicare annual wellness visit, subsequent [Z00*10/09/2023 Actinic keratosis [L57.0] 01/02/2024 Myalgia [M79.10] 01/02/2024 Hyperglycemia [R73.9] 01/02/2024 Dysuria [R30.0] 01/02/2024 (more content not included)... Normal [facility] Dariel 08-16-2024 CNPN Telephone (HCSIND) MOIRA SUH ([id number]) 1950 F Date Time Provider Department 08/16/24 RAJESH IGNACIO HCSIND During your visit today, we recorded the following information about you: Rajesh Ignacio, PT 08/16/2024 4:35 PM [facility]. Her post op dressing was saturated with blood and starting to bulge. I removed the dressing and placed ABD's wrapped in rolled gauze. I gave her extra ABD's and instructed her to change them if they become soiled. There was no active bleeding noted when the dressing was removed Photos uploaded to chart for you to review Thanks Rajesh PT Allergies As of Date: 08/16/2024 Noted Allergy Reaction ATORVASTATIN CALCIUM 02/15/2016 17 - Myalgia Comments: Caused severe myalgias to bilateral thighs and across back CODEINE 12/27/2007 1 - Mental Status Change Comments: Can hear whats going on around her but she can't wake up CRESTOR (ROSUVASTATIN CALCIUM) 02/15/2016 17 - Myalgia Comments: 20 mg caused severe myalgias to upper thighs and across back [id number] REDUCTASE INHIBIT*08/14/2024 16 - Unknown Date Reviewed: 08/16/2024 Reviewed by: Rajesh Ignacio, PT - Fully Assessed Reason for Visit: Home Care [4073] Cmt: Post op dressing saturated Prescriptions as of 08/18/2024 - OTC PRODUCT Take 1 capsule by mouth once daily. ASTAXANTHIN - OTC PRODUCT Take 2 capsules by mouth two times a day. ZYFLAMEND - OTC PRODUCT Take 1 capsule by mouth once daily. - ascorbic acid, vitamin C, (VITAMIN C) 500 mg tablet Take 1 tablet by mouth two times a day with meals for 27 doses. - acetaminophen (TYLENOL) 500 mg tablet Take 2 tablets by mouth every 8 hours. - aspirin, enteric coated (ASPIRIN, ENTERIC COATED) 81 mg EC tablet Take 1 tablet by mouth two times a day. - docusate sodium (COLACE) 100 mg capsule Take 1 capsule by mouth two times a day. - ondansetron orally disintegrating (ZOFRAN ODT) 4 mg disintegrating tablet Take 1 tablet by mouth every 6 hours as needed for nausea/vomiting. - oxyCODONE IR (ROXICODONE) 5 mg immediate release tablet Take 1-2 tablets by mouth every 4 hours as needed for pain for up to 7 days. - senna (SENOKOT) 8.6 mg tab Take 2 tablets by mouth daily at bedtime. - OTC PRODUCT Take 2 capsules by mouth once daily. Black Seed Oil - Capsules Patient should start on August 16, 2024. - OTC PRODUCT Take 2 capsules by mouth once daily. Delmar's Seb Patient should start on August 16, 2024. - metoprolol succinate ER (TOPROL XL) 25 mg 24 hr tablet Take 1 tablet by mouth once daily. - kzciiqt-wdwt-kezvi-oreg -capryl 100 mg-150 mg- 50 mg-150 mg cap Take 1 tablet by mouth twice daily. - OmegaGenics EPA-DHA 2400 (High Concentrate EPA/DHA liquid) (LearnSomething) Take one teaspoon (5 ml) 1 times daily with food - MAGNESIUM ORAL Take 135 Units by mouth once daily. Takes 4 capsules daily - B-Complex Plus (Pure Encapsulations) - 1qD stress/energy/hormones/ detox/weight loss Take 1 capsule by mouth once daily. - CoQ10, Liposomal Ubiquinol, 200 mg cap Take 1 capsule by mouth daily with food. - cholecalciferol (VITAMIN D3) 1,000 unit tab tablet Take 1,000 Units by mouth once daily. Meds Comments as of 08/16/2024: Current per pt.09/28/15 11.2.23 - patient reports she was told that it is now okay to resume taking all supplements/meds. 08/16/24- Holding supplements until MD says to resume Problem List As Of Date 08/16/2024 Noted Resolved UTERINE LEIOMYOMA NOS [D25.9] 12/27/2007 MUCOUS POLYP OF CERVIX [N84.1] 12/27/2007 POSTMENOPAUSAL BLEEDING [N95.0] 12/27/2007 Low HDL (under 40) [E78.6] 10/07/2012 Hyperlipidemia [E78.5] 10/07/2012 Multinodular goiter [E04.2] 10/29/2012 CAD (coronary artery disease) [I25.10] 10/15/2015 H/O non-ST elevation myocardial infarction (NST*10/15/2015 S/P CABG x 3 (L-LAD, S-CX, S-RCA) 07/2015 [Z95.1]10/15/2015 Cardiomyopathy, ischemic [I25.5] 10/15/2015 03/11/2019 Moderate mitral regurgitation [I34.0] 10/15/2015 04/26/2016 Obesity [E66.9] 10/15/2015 04/12/2017 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] 04/12/2017 Dry skin [L85.3] 04/12/2017 Hair loss [L65.9] 04/12/2017 BMI 37.0-37.9, adult [Z68.37] 04/12/2017 Exposure to mercury [Z77.018] 04/12/2017 PAF (paroxysmal atrial fibrillation) (HCC) [I48*06/26/2017 Insulin resistance [E88.819] 07/19/2017 Vitamin D deficiency [E55.9] 09/13/2017 Former smoker [Z87.891] 12/21/2022 S/P total knee arthroplasty, right [Z96.651] 01/03/2023 Primary osteoarthritis of left knee [M17.12] 01/22/2023 Primary osteoarthritis of right knee [M17.11] 01/22/2023 Medicare annual wellness visit, subsequent [Z00*10/09/2023 Actinic keratosis [L57.0] 01/02/2024 Myalgia [M79.10] 01/02/2024 Hyperglycemia [R73.9] 01/02/2024 Dysuria [R30.0] 01/02/2024 Aftercare following right knee joint replacemen* (more content not included)... Normal [facility] Basic metabolic 2000 panelon 08-15-2024 Anion gap [Moles/Vol] 8 mmol/L Normal 8-[address] [facility] Comment on above: Order Comment: Speci men Type: BLOOD SPECIMENOrdering Facility: [facility] Address: [address] [place] [address] Performed By: #### 2 4321-2 ####ARSHAD LABORATORYCLIA [id number] [place] [address] [place] Calcium [Mass/Vol] 8.8 mg/dL Normal 8.5-10.2 [facility] Comment on above: Order Comment: Speci men Type: BLOOD SPECIMENOrdering Facility: [facility] Address: [address] [place] [address] Performed By: #### 2 4321-2 ####ARSHAD LABORATORYCLIA [id number] [place] [address] [place] Chloride [Moles/Vol] 108 mmol/L High 98-107 [facility] Comment on above: Order Comment: Speci men Type: BLOOD SPECIMENOrdering Facility: [facility] Address: [address] [place] [address] Performed By: #### 2 4321-2 ####ARSHAD LABORATORYCLIA [id number] [address] [place] CO2 [Moles/Vol] 24 mmol/L Normal 22-30 [facility] Comment on above: Order Comment: Speci men Type: BLOOD SPECIMENOrdering Facility: [facility] Address: [address] [place] [address] Performed By: #### 2 4321-2 ####ARSHAD LABORATORYCLIA [id number] [address] OF [place] Creatinine [Mass/Vol] 0.62 mg/dL Normal 0.58-0.[address] [facility] Comment on above: Order Comment: Speci men Type: BLOOD SPECIMENOrdering Facility: [facility] Address: [address] [place] [address] Performed By: #### 2 4321-2 ####ARSHAD LABORATORYCLIA [id number] [address] Creatinine and Glomerular filtration rate.predicted panel (S/P/Bld) 93 mL/min/1.73m??? Normal >=60 [facility] Comment on above: Order Comment: Speci men Type: BLOOD SPECIMENOrdering Facility: [facility] Address: [address] [place] [address] Result Comment: Bethany mated Glomerular Filtration Rate (eGFR) is calculated using the 2020 CKD-EPI creatinine equation. This equation utilizes serum creatinine, sex, and age as parameters. The creatinine assay has traceable calibration to isotope dilution-mass spectrometry. Refer to KDIGO guidelines for clinical interpretation. In patients with unstable renal function, e.g. those with acute kidney injury, the eGFR may not accurately reflect actual GFR. Performed By: #### 2 4321-2 ####GALENA LABORATORYCLIA [id number] [place] [id number] [place] Glucose [Mass/Vol] 116 mg/dL High 74-99 [facility] Comment on above: Order Comment: Elisabeth men Type: BLOOD SPECIMENOrdering Facility: [facility] Address: [address] [place] [address] Result Comment: The [place] [employer] (ADA) provides guidance for cutoff values for fasting glucose and random glucose. The ADA defines fasting as no caloric intake for at least 8 hours. Fasting plasma glucose results between 100 to 125 mg/dL indicate increased risk for diabetes (prediabetes). Fasting plasma glucose results greater than or equal to 126 mg/dL meet the criteria for diagnosis of diabetes. In the absence of unequivocal hyperglycemia, results should be confirmed by repeat testing. In a patient with classic symptoms of hyperglycemia or hyperglycemic crisis, random plasma glucose results greater than or equal to 200 mg/dL meet the criteria for diagnosis of diabetes. Reference: Standards of Medical Care in Diabetes 2016, [place] [employer]. Diabetes Care. 2016.39(Suppl 1). Performed By: #### 2 4321-2 ####GALENA LABORATORYCLIA [id number] [place] [id number] [place] Potassium [Moles/Vol] 4.2 mmol/L Normal 3.7-5.[address] [facility] Comment on above: Order Comment: Elisabeth men Type: BLOOD SPECIMENOrdering Facility: [facility] Address: [address] [place] [address] Performed By: #### 2 4321-2 ####GALENA LABORATORYCLIA [id number] [place] [id number] [place] Sodium [Moles/Vol] 140 mmol/L Normal 136-144 [facility] Comment on above: Order Comment: Speci men Type: BLOOD SPECIMENOrdering Facility: [facility] Address: [address] [place] [address] Performed By: #### 2 4321-2 ####ARSHAD LABORATORYCLIA [id number] [address] Urea nitrogen [Mass/Vol] 12 mg/dL Normal 7-21 [facility] Comment on above: Order Comment: Speci men Type: BLOOD SPECIMENOrdering Facility: [facility] Address: [address] [place] [address] Performed By: #### 2 4321-2 ####ARSHAD LABORATORYCLIA [id number] [address] CBC panel Auto (Bld)on 08-15 Erythrocyte distribution width (RBC) [Ratio] 12.1 % Normal 11.5-15.0 [facility] Comment on above: Order Comment: Speci men Type: BLOOD SPECIMENOrdering Facility: [facility] Address: [address] [place] [address] Performed By: #### 5 8410-2 ####ARSHAD LABORATORYCLIA [id number] [address] Hematocrit (Bld) [Volume fraction] 33.1 % Low 36.0-46.0 [facility] Comment on above: Order Comment: Speci men Type: BLOOD SPECIMENOrdering Facility: [facility] Address: [address] [place] [address] Performed By: #### 5 8410-2 ####ARSHAD LABORATORYCLIA [id number] [address] [place] Hemoglobin (Bld) [Mass/Vol] 11.5 g/dL Normal 11.5-15.5 [facility] Comment on above: Order Comment: Speci men Type: BLOOD SPECIMENOrdering Facility: [facility] Address: [address] [place] [address] Performed By: #### 5 8410-2 ####ARSHAD LABORATORYCLIA [id number] [address] MCH (RBC) [Entitic mass] 33.0 pg Normal 26.0-34.0 [facility] Comment on above: Order Comment: Speci men Type: BLOOD SPECIMENOrdering Facility: [facility] Address: [address] [place] [address] Performed By: #### 5 8410-2 ####ARSHAD LABORATORYCLIA [id number] [address] MCHC (RBC) [Mass/Vol] 34.7 g/dL Normal 30.5-36.[address] [facility] Comment on above: Order Comment: Speci men Type: BLOOD SPECIMENOrdering Facility: [facility] Address: [address] [place] [address] Performed By: #### 5 8410-2 ####ARSHAD LABORATORYCLIA [id number] [address] MCV (RBC) [Entitic vol] 95.1 fL Normal 80.0-100.0 [facility] Comment on above: Order Comment: Speci men Type: BLOOD SPECIMENOrdering Facility: [facility] Address: [address] [place] [address] Performed By: #### 5 8410-2 ####ARSHAD LABORATORYCLIA [id number] [address] Nucleated RBC (Bld) [#/Vol] 10*3/uL Normal <0.01 [facility] Comment on above: Order Comment: Speci men Type: BLOOD SPECIMENOrdering Facility: [facility] Address: [address] [place] [address] Performed By: #### 5 8410-2 ####ARSHAD LABORATORYCLIA [id number] [address] Platelet mean volume (Bld) [Entitic vol] 11.6 fL Normal 9.0-12.7 [facility] Comment on above: Order Comment: Speci men Type: BLOOD SPECIMENOrdering Facility: [facility] Address: [address] [place] [address] Performed By: #### 5 8410-2 ####ARSHAD LABORATORYCLIA [id number] [address] Platelets (Bld) [#/Vol] 129 10*3/uL Low 150-400 [facility] Comment on above: Order Comment: Speci men Type: BLOOD SPECIMENOrdering Facility: [facility] Address: [address] [place] [address] Result Comment: No c lot detected. Performed By: #### 5 8410-2 ####ARSHAD LABORATORYCLIA [id number] [address] RBC (Bld) [#/Vol] 3.48 10*6/uL Low 3.90-5.20 [facility] Comment on above: Order Comment: Speci men Type: BLOOD SPECIMENOrdering Facility: [facility] Address: [address] [place] [address] Performed By: #### 5 8410-2 ####GALENA LABORATORYCLIA [id number] [address] WBC (Bld) [#/Vol] 7.10 10*3/uL Normal 3.70-11.00 [facility] Comment on above: Order Comment: Speci men Type: BLOOD SPECIMENOrdering Facility: [facility] Address: [address] [place] [address] Performed By: #### 5 8410-2 ####ARSHAD LABORATORYCLIA [id number] [address] CNDSon 08-15-2024 CNDS HNO ID: [id number] Author: NELA FERREIRA MD Service: Orthopaedic Surgery Author Type: Physician Type: Discharge Summary Filed: 08/15/2024 23:00 Note Text: DISCHARGE SUMMARY PATIENT NAME: Moira Suh ADMISSION DATE: 08/14/2024 DISCHARGE DATE: 08/15/2024 PATIENT DISCHARGE SUMMARY C O N F I D E N T I A L I N F O R M A T I O N The following is a brief overview of your hospitalization. Some of the information contained on this summary may be confidential. This information should be kept in your records and should be shared with your regular doctor. These instructions explain what you or your respiratory care practitioner need to do to continue your care at home or at another healthcare facility Please go over these instructions with your nurse and respiratory care practitioner. If you are not sure about something, please ask. Highest Readmission Risk Score: 5 The 30 day readmissions risk score is derived from an internally validated risk model which evaluates patient level characteristics, utilization history, medication orders and lab results up until the day of discharge. Patients with a score of 39 or above are considered highest risk for readmission. Specific patient level drivers will be listed at the bottom of the summary. The 30 day readmissions risk score is derived from an internally validated risk model which evaluates patient level characteristics, utilization history, medication orders and lab results up until the day of discharge. Patients with a score of 40 or above are considered highest risk for readmission. Where I Will be Going after Discharge: Home with Home Health My Condition at Discharge: Stable PRINCIPAL DIAGNOSIS: (Reason after study for this admission): Procedure(s): ROBOTIC ASSISTED TOTAL KNEE ARTHROPLASTY OTHER DIAGNOSES: Patient Active Hospital Problem List: No active hospital problems. OPERATIONS PERFORMED: Procedure(s): ROBOTIC ASSISTED TOTAL KNEE ARTHROPLASTY My Doctors and Medical Team: My Main Hospital Doctor: Nela Lewis MD PHYSICAL EXAM: See daily progress note Vitals: BP 120/73 Pulse (!) 59 Temp 36.7 ?C (98.1 ?F) (Oral) Resp 18 Ht 165.1 cm (5' 5) Wt 102.5 kg (225 lb 15.5 oz) SpO2 98% BMI 37.60 kg/m? SUMMARY OF WHAT HAPPENED WHILE PATIENT WAS IN THE HOSPITAL: The patient was followed by Dr. Ferreira in clinic for left knee pain due to osteoarthritis. It was determined the patient would benefit from total knee arthroplasty. The procedure, its risks, benefits, and potential complications were discussed in detail prior to surgery. The patient conveyed understanding of all topics and consented to surgery. The patient was admitted to the hospital. Underwent an elective robotic assisted total knee left arthroplasty on 08/15/[address] Ferreira. The patient tolerated the procedure well and was returned to the Post Anesthesia Care Unit in stable condition. Vital signs per PACU protocol. VTE risk assessment performed. O2 therapy monitored by Respiratory Therapy to include incentive spirometry, ADL, wound and support per physician order set postop protocol. PT and OT to evaluate and treat. IV antibiotics, antiemetics, DVT prophylaxis and pain medication were given. The patient progressed with physical therapy. Lab values and vital signs were monitored and remained stable. The incision remained clean, dry and intact. Thigh and calf are not swollen. No signs of DVT or infection. The patient progressed with physical therapy towards goal of safety and independence. Patient was determined safe for discharge to home with home health care on 08/16/2023 TREATMENT / WOUND CARE: If you have any concerns about your wound, please contact the office. Keep wound and incision area clean and dry. You may remove your dressing on POD #7-10 (7 to 10 days after surgery). If it remains drainage-free, you may leave the dressing off, keeping the wound open to air. If there is any drainage please contact the office You may not submerge the wound under standing water for 6 weeks time after surgery (i.e. no baths, no hot tubs, no swimming pools). Do not rub the wound, but rather pat dry. If you have non-absorbable sutures in place, these will be taken out on your 1st follow-up appointment. Observe the wound for signs of infection, including increased redness, swelling, or persistent drainage around the incision site. It is normal for your wound to be warmer immediately after surgery (even up to 4-6 weeks after surgery). If you begin to experience fevers, chills, night sweats, or flu-like symptoms and your wound shows signs concerning for wound infection, please call the orthopaedic office immediately SUPPLIES OR EQUIPMENT NEEDED: Rolling walker PHYSICAL THERAPY: Physical Therapy is very important to your recovery. Be (more content not included)... [facility]2024 [facility] WILLEMMOIRA Berman ([id number]) 1950 F Date Time Provider Department 08/15/24 HARLAN AVILES [facility] During your visit today, we recorded the following information about you: Harlan Aviles, PSS 08/15/2024 10:07 AM Signed Date/Time: 08/15/2024 10:01 AM Spoke with Moira, patient @ phone #: [phone] - Preferred # for contact: [phone] Have you received help from a home care company in the last 60 days? no Are you agreeable to [facility] services? yes What address will we be seeing you at? [address] [place], [place] [id number] Do you have any upcoming appointments or things we need to schedule around? no Do you have a teachable CG or can you manage your care independently? yes Who? Family Discharge today Notified to secure animals and weapons SELVIN Maki 08/15/2024 10:06 AM Allergies As of Date: 08/15/2024 Noted Allergy Reaction ATORVASTATIN CALCIUM 02/15/2016 17 - Myalgia Comments: Caused severe myalgias to bilateral thighs and across back CODEINE 12/27/2007 1 - Mental Status Change Comments: Can hear whats going on around her but she can't wake up CRESTOR (ROSUVASTATIN CALCIUM) 02/15/2016 17 - Myalgia Comments: 20 mg caused severe myalgias to upper thighs and across back [id number] REDUCTASE INHIBIT*08/14/2024 16 - Unknown Date Reviewed: 08/15/2024 Reviewed by: Guillermo Hutchins, RN - Fully Assessed Reason for Visit: Home Care [[id number]] Cmt: Confirmation call Prescriptions as of 08/15/2024 - OTC PRODUCT Black Seed Oil - Capsules - OTC PRODUCT Adebayo Grigsby - metoprolol succinate ER (TOPROL XL) 25 mg 24 hr tablet Take 1 tablet by mouth once daily. - iifiqdg-jlax-awkco-oreg -capryl 100 mg-150 mg- 50 mg-150 mg cap Take 1 tablet by mouth twice daily. - Omega[employer]ics EPA-DHA 2400 (High Concentrate EPA/DHA liquid) (LearnSomething) Take one teaspoon (5 ml) 1 times daily with food - MAGNESIUM ORAL Take 135 Units by mouth once daily. Takes 4 capsules daily - ascorbic acid, vitamin C, (VITAMIN C) 500 mg tablet Take 2,000 mg by mouth once daily. - B-Complex Plus (Pure Encapsulations) - 1qD stress/energy/hormones/ detox/weight loss Take 1 capsule by mouth once daily. - CoQ10, Liposomal Ubiquinol, 200 mg cap Take 1 capsule by mouth daily with food. - cholecalciferol (VITAMIN D3) 1,000 unit tab tablet Take 1,000 Units by mouth once daily. Facility-Administered Medications as of 08/15/2024 - metoprolol succinate ER 25 mg tab(s) (TOPROL XL) - oxyCODONE IR 5-10 mg tab(s) (ROXICODONE) - acetaminophen 1,000 mg tab(s) (TYLENOL) - ondansetron orally disintegrating 4 mg tab(s) (ZOFRAN ODT) - ondansetron (PF) 4 mg injection (ZOFRAN) - magnesium hydroxide 400 mg/5 mL 30 mL (MOM) - bisacodyl EC 10 mg tab(s) (DULCOLAX) - aluminum-magnesium hydroxide-simethicone 200-200-20 mg/5 mL 30 mL - ascorbic acid (vitamin C) 500 mg tab(s) (VITAMIN C) - docusate sodium 100 mg cap(s) (COLACE) - senna 17.2 mg tab(s) (SENOKOT) - aspirin, enteric coated 81 mg tab(s) - lactated ringers iv infusion - HYDROmorphone 0.4 mg injection (DILAUDID) - keTORolac 15 mg injection (Toradol) Meds Comments as of 01/05/2023: Current per pt.09/28/15 11.2.23 - patient reports she was told that it is now okay to resume taking all supplements/meds. Problem List As Of Date 08/15/2024 Noted Resolved UTERINE LEIOMYOMA NOS [D25.9] 12/27/2007 MUCOUS POLYP OF CERVIX [N84.1] 12/27/2007 POSTMENOPAUSAL BLEEDING [N95.0] 12/27/2007 Low HDL (under 40) [E78.6] 10/07/2012 Hyperlipidemia [E78.5] 10/07/2012 Multinodular goiter [E04.2] 10/29/2012 CAD (coronary artery disease) [I25.10] 10/15/2015 H/O non-ST elevation myocardial infarction (NST*10/15/2015 S/P CABG x 3 (L-LAD, S-CX, S-RCA) 07/2015 [Z95.1]10/15/2015 Cardiomyopathy, ischemic [I25.5] 10/15/2015 03/11/2019 Moderate mitral regurgitation [I34.0] 10/15/2015 04/26/2016 Obesity [E66.9] 10/15/2015 04/12/2017 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] 04/12/2017 Dry skin [L85.3] 04/12/2017 Hair loss [L65.9] 04/12/2017 BMI 37.0-37.9, adult [Z68.37] 04/12/2017 Exposure to mercury [Z77.018] 04/12/2017 PAF (paroxysmal atrial fibrillation) (HCC) [I48*06/26/2017 Insulin resistance [E88.819] 07/19/2017 Vitamin D deficiency [E55.9] 09/13/2017 Former smoker [Z87.891] 12/21/2022 S/P total knee arthroplasty, right [Z96.651] 01/03/2023 Primary osteoarthritis of left knee [M17.12] 01/22/2023 Primary osteoarthritis of right knee [M17.11] 01/22/2023 Medicare annual wellness visit, subsequent [Z00*10/09/2023 Actinic keratosis [L57.0] 01/02/2024 Myalgia [M79.10] 01/02/2024 Hyperglycemia [R73.9] 01/02/2024 Dysuria [R30.0] 01/02/2024 Aftercare following right knee joint replacemen*01/30/2024 Chronic pain of right knee [M25.561, G89.29] 01/30/2024 Chronic bilateral low back pain [M54.50, G89.29]04/24/2024 Spider bite [T63.301A] 08/08/2024 (more content not included)... Normal [facility] CONSULTon 08-15-2024 CONSULT HNO ID: [id number] Author: GILDARDO MATHIAS MD Service: General Internal Medicine Author Type: Physician Type: Consults Filed: 08/16/2024 06:55 Note Text: Internal Medicine INITIAL CONSULT NOTE SERVICE DATE: 08/15/2024 REASON FOR CONSULT: Medical Management. REQUESTING PHYSICIAN: Dr. Ferreira. PRIMARY CARE PHYSICIAN: DO Angelo Lara Ms. Suh is a 74 year old female who is s/p Left TKR. Pt is post op, doing well. Pt denies any acute cardiopulmonary events. FUNCTIONAL STATUS: Independent PAST MEDICAL HISTORY Diagnosis Date Atrial fibrillation (HCC) Coronary artery disease Holter monitor, abnormal extra beats Hypercholesteremia Hyperlipidemia Hypertension Insulin resistance 07/19/2017 Leiomyoma of uterus, unspecified Low HDL (under 40) PAST SURGICAL HISTORY Procedure Laterality Date CORONARY ARTERY BYPASS GRAFT HX 2016 3 vessel FNA WITH IMAGING 11/27/2012 U/S FNA bilateral thyroid PAST SURGICAL HISTORY OF age 28 1 ovary removed, 1 tube reconstructed from ectopic PAST SURGICAL HISTORY OF age 20 tendon repairs to wrists after going through glass door PAST SURGICAL HISTORY OF removal of uterine polyp TOTAL KNEE REPLACEMENT Right 01/02/2023 FAMILY HISTORY Problem Relation Age of Onset Thyroid Mother Hypertension Mother Prostate Cancer Father Thyroid Sister Social History Tobacco Use Smoking status: Former Current packs/day: 1.00 Average packs/day: 1 pack/day for 10.0 years (10.0 ttl pk-yrs) Types: Cigarettes Smokeless tobacco: Never Vaping Use Vaping status: Never Used Substance Use Topics Alcohol use: Yes Comment: socially Drug use: No metoprolol succinate ER (TOPROL XL) 25 mg 24 hr tablet, Take 1 tablet by mouth once daily., Disp: 90 tablet, Rfl: 3, 08/13/2024 Evening OTC PRODUCT, Black Seed Oil - Capsules, Disp: , Rfl: , 07/15/2024 OTC PRODUCT, Lion's Seb, Disp: , Rfl: , 07/15/2024 evgnncg-vsrt-egsnl-oreg -capryl 100 mg-150 mg- 50 mg-150 mg cap, Take 1 tablet by mouth twice daily., Disp: , Rfl: , 07/15/2024 OmegaGenics EPA-DHA 2400 (High Concentrate EPA/DHA liquid) (LearnSomething), Take one teaspoon (5 ml) 1 times daily with food, Disp: , Rfl: , 07/15/2024 MAGNESIUM ORAL, Take 135 Units by mouth once daily. Takes 4 capsules daily , Disp: , Rfl: , 07/15/2024 ascorbic acid, vitamin C, (VITAMIN C) 500 mg tablet, Take 2,000 mg by mouth once daily., Disp: , Rfl: , 07/15/2024 B-Complex Plus (Pure Encapsulations) - 1qD stress/energy/hormones/ detox/weight loss, Take 1 capsule by mouth once daily., Disp: , Rfl: 0, 07/15/2024 CoQ10, Liposomal Ubiquinol, 200 mg cap, Take 1 capsule by mouth daily with food., Disp: 120 capsule, Rfl: 2, 07/15/2024 cholecalciferol (VITAMIN D3) 1,000 unit tab tablet, Take 1,000 Units by mouth once daily., Disp: , Rfl: , 07/15/2024 Current Facility-Administered Medications Medication Dose Route Frequency metoprolol succinate ER 25 mg tab(s) (TOPROL XL) 25 mg ORAL DAILY oxyCODONE IR 5-10 mg tab(s) (ROXICODONE) 5-10 mg ORAL q 3 H PRN acetaminophen 1,000 mg tab(s) (TYLENOL) 1,000 mg ORAL q 8 H ondansetron orally disintegrating 4 mg tab(s) (ZOFRAN ODT) 4 mg ORAL q 6 H PRN Or ondansetron (PF) 4 mg injection (ZOFRAN) 4 mg INTRAVENOUS q 6 H PRN magnesium hydroxide 400 mg/5 mL 30 mL (MOM) 30 mL ORAL DAILY PRN [START ON 08/16/2024] bisacodyl EC 10 mg tab(s) (DULCOLAX) 10 mg ORAL DAILY aluminum-magnesium hydroxide-simethicone 200-200-20 mg/5 mL 30 mL 30 mL ORAL q 2 H PRN ascorbic acid (vitamin C) 500 mg tab(s) (VITAMIN C) 500 mg ORAL BID w MEALS docusate sodium 100 mg cap(s) (COLACE) 100 mg ORAL BID senna 17.2 mg tab(s) (SENOKOT) 17.2 mg ORAL AT BEDTIME aspirin, enteric coated 81 mg tab(s) 81 mg ORAL BID lactated ringers iv infusion 100 mL/hr INTRAVENOUS CONTINUOUS HYDROmorphone 0.4 mg injection (DILAUDID) 0.4 mg INTRAVENOUS q 3 H PRN keTORolac 15 mg injection (Toradol) 15 mg INTRAVENOUS q 6 H PRN Allergies As of Date: 08/01/2024 Allergen Noted Reaction ATORVASTATIN CALCIUM 02/15/2016 Myalgia CODEINE 12/27/2007 Mental Status Change CRESTOR [ROSUVASTATIN CALCIUM] 02/15/2016 Myalgia Fully Assessed 07/30/2024 COMPLETE REVIEW OF SYSTEMS: GENERAL: No weight loss, malaise or fevers HEENT: Negative for frequent or significant headaches, No changes in hearing or vision, no nose bleeds or other nasal problems NECK: Negative for lumps, goiter, pain and significant neck swelling RESPIRATORY: Negative for cough, hemoptysis, wheezing, COPD, dyspnea or shortness of breath CARDIOVASCULAR: Negative for chest pain, leg swelling, hypertension, CHF or palpitations GI: No nausea, vomiting, or diarrhea MUSCULOSKELETAL: joint pain or swelling HEMATOLOGY/LYMPHOLOGY: Negative for prolonged bleeding, bruising easily or swollen nodes ENDOCRINE: Negative for cold or heat intolerance, polyuria, polydipsia and goiter NEURO: No history of headaches, syncope, paralysis, seizures o (more content not included)... [facility] THERAPY [facility] 08-15-2024 THERAPY NT HNO ID: [id number] Author: DAVE YANG, PT Service: Physical Therapy Author Type: Physical Therapist Type: Therapy (PT/OT/Speech/Resp) Filed: 08/15/2024 10:10 Note Text: Summary: PT Eval Physical Therapy Evaluation Summary SERVICE DATE: 08/15/2024 SERVICE TIME: 823 to 931 ROOM: [place] [address] PT 6 Clicks Score: 19 Total Joint Replacement Discharge Readiness: Cleared from Physical Therapy DISCHARGE RECOMMENDATIONS Home PT Recommended Discharge Disposition Comments: For progression of surgical LE strengthening and flexibility post TKA Anticipated Discharge Needs: Physical Assist at Home, Supervision at Home Physical Assist at Home for: Cleaning, Laundry, Meals, Self Care, Shopping, Transportation Supervision at Home due to: Other: See Comment (initially for optimal safety) Recommended Discharge Equipment: No equipment needs anticipated ASSESSMENT Response to Therapy Interventions: Good Participation in Activities, On-Track to Achieve Discharge Goals, Requires Additional Time to Complete Activities Pt with balance and strength deficits post TKA affecting performance and requiring continued skilled PT post acute stay for return to [place]. Pt is mostly CGA to SBA with activity, initial increased in L knee pain that improves with continued mobility. Pt is AANDO x 3, follows cues appropriately, participates without adverse effects, vitals within safe limits. Pt is safe for discharge home. PRECAUTIONS Fall Risk, Lines/Tubes/Drains, 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, Weight Bearing Restrictions Left Lower Extremity Weight Bearing Status: WBAT CURRENT HOSPITAL COURSE 08/14: s/p ROBOTIC ASSISTED TOTAL KNEE ARTHROPLASTY (Left) Relevant Past Medical History: CAD, insulin resistance, A fib, HTN, R TKA (2022), NSTEMI HOME LIVING Patient Lives With: Spouse Assistance Available: 24-Hour Entry To Home: Stairs, Without Rail Number Of Stairs Into Home: 2 Number Of Stairs To Bed/Bath: 0 Tub/Shower Type: walk in shower Laundry: 1st floor Equipment Owned: Walker- Wheeled, Cane PRIOR FUNCTIONAL LEVEL Within Functional Limits Per pt: Sleeps in adjustable bed (in/out on L side), indep ADLs/IADLs, no use of assistive device, +drives, denies falls in last 6 months. Plans to sleep in recliner initially. SUBJECTIVE Pt agreeable to PT, ok per nursing to treat. THERAPY DIAGNOSIS Difficulty walking-musculoskeletal TREATMENT INTERVENTIONS Evaluation, Therapeutic Exercise (54797), Therapeutic Activity (72212), Gait Training (96618) Timed Code Treatment (minutes): 53 Skilled Treatment Time (minutes): 68 $ Evaluation-Low (15929) Billed Units: 1 unit Therapeutic Exercise (71587) Treatment Minutes: 10 $ Therapeutic Exercise (60037) Billed Units: 1 unit Exercise Ankle Pumps (number of reps): BLE x 10 Quad Sets (number of reps): BLE x 10 Glut Sets (number of reps): BLE x 10 Knee Flexion Stretch (number of reps): LLE x 10 Exercise: Pt educated in purpose and parameters of performance of anti-embolics, HEP issued and reviewed Therapeutic Activity (81015) Treatment Minutes: 20 $ Therapeutic Activity (19737) Billed Units: 1 unit Gait Training (40171) Treatment Minutes: 23 $ Gait Training (95997) Billed Units: 2 units TRAINING AND EDUCATION PROVIDED Assistive Device Use, Bed Mobility, Benefits of In-Hospital Mobility, Discharge Planning, Disease Specific Education, Edema Management, Equipment, Expected Functional Level, Falls Prevention, Gait Pattern, Reduction of Deviations, Home Safety, Modalities, Positioning, Precautions/Restriction s, Role of Physical Therapy, Transfers, Treatment Protocol, Car Transfers, Exercise Program, Handout Issued, Stair Navigation, Standing Balance (safety/balance strategy with use of walker for pericare and hand hygeine at sink) THERAPEUTIC SKILLS USED Activity Dosing, Assessment of Tolerance Including Vitals Response to Activity, Cuing Tactile, Cues for Sequencing/Proper Technique for Activity, Cuing Verbal, Cuing Visual, Physical Assist, Muscle Activation Facilitation, Postural Alignment Correction, Facilitation of Joint Range of Motion FUNCTIONAL STATUS Bed Mobility Sit to Supine: Contact Guard Assistance assist with LLE management, HOB flat Scooting: Stand By Assistance Transfers Sit To Stand: Contact Guard Assistance cues for proper hand placement, X 5 trials Stand To Sit: Stand By Assistance cues for safe approach to surface, proper hand placement, controlled descent to sit Bed to Chair Gait Contact Guard Assistance, Stand By Assistance, Additional Information Pt instructed in step to pattern with initial cues for proper AD placement, sequencing and increased use of UEs for support. intermittent cue thereafter for walker stabilization with step to pattern. (more content not included)... Normal [facility] THERAPY NT HNO ID: [id number] Author: TATE KERN, OT/L Service: Occupational Therapy Author Type: Occupational Therapist Type: Therapy (PT/OT/Speech/Resp) Filed: 08/15/2024 08:43 Note Text: Summary: OT Evaluation Occupational Therapy Evaluation Summary SERVICE DATE: 08/15/2024 SERVICE TIME: 720 to 824 ROOM: [id number] OT 6 Clicks Score: 19 Total Joint Replacement Discharge Readiness: Cleared from Occupational Therapy DISCHARGE RECOMMENDATIONS Home OT Recommended Discharge Disposition Comments: Pt is functioning below baseline s/p L TKA. Would benefit from Home OT to further increase safety and independence during ADLs, IADLs and functional mobility/transfers for highest level of safety and functioning. Anticipated Discharge Needs: Physical Assist at Home, Supervision at Home Physical Assist at Home for: Cleaning, Laundry, Meals, Self Care, Shopping, Transportation Supervision at Home due to: Other: See Comment Recommended Discharge Equipment: Technical Agronomist, Grab Bars-Shower, Shower Chair, Walker bag/basket, Long Handled Sponge (leg human resources leader) ASSESSMENT Response to Therapy Interventions: Good Participation in Activities, On-Track to Achieve Discharge Goals Followed cues appropriately and receptive to therapist feedback/recommendation s. PRECAUTIONS Fall Risk, Lines/Tubes/Drains, 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, Weight Bearing Restrictions Left Lower Extremity Weight Bearing Status: WBAT CURRENT HOSPITAL COURSE 08/14: s/p ROBOTIC ASSISTED TOTAL KNEE ARTHROPLASTY (Left) Relevant Past Medical History: CAD, insulin resistance, A fib, HTN, R TKA (2022), NSTEMI HOME LIVING Patient Lives With: Spouse + 3 dogs Assistance Available: 24-Hour Entry To Home: Stairs, With Rail, Other: See Comment Number Of Stairs Into Home: (2 consecutive or 2 platform) Number Of Stairs To Bed/Bath: first floor set up Tub/Shower Type: walk in shower Laundry: 1st floor Equipment Owned: Walker- Wheeled, Cane, adjustable bed, raised toilet with armrests PRIOR FUNCTIONAL LEVEL Within Functional Limits Per pt: Sleeps in adjustable bed (in/out on L side), indep ADLs/IADLs, no use of assistive device, +drives, denies falls in last 6 months. Baseline Cognition: Oriented to self, Oriented to place, Oriented to time SUBJECTIVE Patient reports no pain at rest in bed. Reports up to bedside chair yesterday with assist from nursing. COGNITION Responsiveness: Alert, Awake THERAPY DIAGNOSIS Decreased activities of daily living (ADL), Reduced mobility-other TREATMENT INTERVENTIONS Evaluation, Self Fci Management (23213) Timed Code Treatment (minutes): 30 Skilled Treatment Time (minutes): 45 TRAINING AND EDUCATION PROVIDED Activity Adaptation/Compensatory Strategies, Assistive Device Use, Adaptive Equipment/DME, Discharge Planning, Expected Functional Level, Functional Mobility Involving ADLs, Grooming Tasks, Lower Extremity Dressing, Pain Management, Positioning, Precautions/Restriction s, Role of Occupational Therapy, Transfer - Sit to Stand, Bed Mobility, Lower Extremity Bathing, Transfer - Shower, Identification of Systems of Support THERAPEUTIC SKILLS USED Cues for Sequencing/Proper Technique for Activity, Cuing Verbal, Cuing Visual, Therapeutic Use of Self, Assessment of Tolerance Including Vitals Response to Activity, Physical Assist FUNCTIONAL STATUS /per clinical judgment (as patient did not perform all functional tasks listed below this session) Activities of Daily Living Assist Level Additional Information Feeding Independent Grooming Stand By Assistance, Additional Information oral hygiene standing at sink Bathing Upper Body Supervision, Additional Information anticipated when seated Bathing Lower Body Moderate Assistance, Additional Information anticipated; pt educated in safe technique Dressing Upper Body Modified Independent, Additional Information anticipated when seated Dressing Lower Body Total Assistance, Additional Information to don/doff socks seated EOB (pt educated in benefits of use of sock aide, however, stated preference for spouse to complete at home), CGA to don underwear w/use of release manager Toileting Contact Guard Assistance Mobility Assist Level Additional Information Bed Mobility Supine To Sit: Contact Guard Assistance, Additional Information HOB elevated (as pt has adjustabled bed at home, plans to sleep in recliner initially), to L, CGA for LLE. Educated in benefits of use of a leg human resources leader Sit to Stand Contact Guard Assistance, Additional Information from bed (ht elevated to simulate home set up) to walker level, cues for proper hand placement Stand to Sit Stand By Assistance, Additional Information walker level to bedside chair, cues for proper LLE placement Bed to Chair Toilet (more content not included)... [facility] ALLIED HEALTHon 08-14-2024 ALLIED HEALTH HNO ID: [id number] Author: KEVYN MULLER RT(R) Service: Radiology Author Type: Technologist Type: Allied Health Filed: 08/14/2024 13:54 Note Text: Radiology Service Progress Note PATIENT NAME: Moira Suh DATE OF SERVICE: August 14, 2024 TIME: 1:54 PM PATIENT IDENTITY VERIFICATION COMPLETED USING TWO (2) IDENTIFIERS: Name and Date of confirmed by patient verbally. FALL SCREENING: Has the patient had 2 falls in the last year or 1 fall with injury or currently using an Ambulatory Assistive Device (Walker, Cane, Wheelchair, Crutches, etc.)? Inpatient: Screened on floor PATIENT GENDER DATA: Assigned female at . status: : No status: NO. PATIENT RELEVANT IMPLANT DATA REVIEWED: Not Applicable PATIENT PRESENTS WITH AN IMPLANTABLE OR ATTACHED RN CLINICAL TRIALS: No RADIOLOGY DEPARTMENT: General X-ray: Exam(s) Completed: Lower Extremity X-Ray(s): Knee, AP / LAT Left PERIPHERAL IV DATA: Not applicable SIGNED BY: RT Lara(R) August 14, 2024 1:54 PM [facility] ANES POSTPROC EVALon 025 ANES POSTPROC EVAL HNO ID: [id number] Author: AMBER ANDRES MD Service: Anesthesiology Author Type: Anesthesiologist Type: Anesthesia Postprocedure Evaluation Filed: 08/14/2024 13:38 Note Text: POST ANESTHESIA EVALUATION NOTE : 1950 Procedure Summary Date: 08/14/24 Room / Location: [place] / [place] OR Anesthesia Start: 1047 Anesthesia Stop: 131 Procedure: ROBOTIC ASSISTED TOTAL KNEE ARTHROPLASTY (Left: Knee) Diagnosis: Primary osteoarthritis of left knee (Primary osteoarthritis of left knee [M17.12]) Surgeons: Nela Ferreira MD Responsible Provider: [place] Andres MD Anesthesia Type: spinal, regional ASA Status: 3 Anesthesia Type: spinal, regional Last Vitals Vitals Value Taken Time BP 121/62 08/14/24 1330 Temp 08/14/24 1338 Pulse 78 08/14/24 1336 Resp 08/14/24 1338 SpO2 99 % 08/14/24 1336 Vitals shown include unfiled device data. Post Anesthesia Patient Status Patient Evaluation: PACU. PACU/ICU Patient Condition: stable. Anticipated Disposition: inpatient floor planned admission. Neurological Status: aware and responsive. Pulmonary Status: breathing comfortably on room air Airway Control: returned to baseline unsupported. Cardiovascular Status: stable. Pain Management: clinically adequate - multimodal analgesia pain management approach Postoperative Hydration: acceptable. Intraoperative Events: no significant anesthesia events Post Operative Nausea/Vomiting Status: no significant post operative nausea or vomiting Recommendation: continue current plan of care and further care per PACU/ICU/floor team. Anesthesia Observations No Documentation SIGNATURE: Amber Andres MD PATIENT NAME: Moira Suh DATE: August 14, 2024 TIME: 1:38 PM CSN: [id number] [facility] ANES PRE-OPon 08-14-2024 ANES PRE-OP HNO ID: [id number] Author: AMBER ANDRES MD Service: Anesthesiology Author Type: Anesthesiologist Type: Anesthesia Preprocedure Evaluation Filed: 08/14/2024 08:56 Note Text: ANESTHESIOLOGY DAY OF SURGERY NOTE : 1950 Procedure Information Date/Time: 08/14/24 1007 Procedure: ROBOTIC ASSISTED TOTAL KNEE ARTHROPLASTY (Left: Knee) Location: [place] [address] / [place] Surgeons: Nela Ferreira MD Estimated body mass index is 37.28 kg/m? as calculated from the following: Height as of 08/08/24: 165.1 cm (5' 5). Weight as of 08/08/24: 101.6 kg (224 lb). 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 Tracheostomy tube not present Mallampati: II. TM distance: >3 FB. Neck ROM: full ROM without neurological symptoms. Mouth opening: adequate. Short neck: no. Thick neck: no DENTAL Normal dental observations. Dental findings: teeth intact. Additional exam findings: yes. CARDIOVASCULAR Rhythm: regular Rate: normal PULMONARY Breath sounds clear to auscultation. ABDOMINAL Obese: obesity present. II - ANESTHESIA PLAN ASA Score: 3 Anesthetic Plan: spinal and regional The patient is not a current smoker. NPO Status: adequate Anesthetic plan additional comments: (pre op adductor canal block) + MAC Sedation. Beta Reina Monitoring Plan Monitoring plan: Standard ASA. Post Procedure Analgesic Plan Postoperative analgesic plan: parenteral or oral opioids, multimodal analgesia and peripheral nerve block. Informed Consent Anesthetic risks, benefits, alternatives, personnel and consent discussed: yes. Patient / Responsible Constitution Party agrees to proceed: yes Patient / Surrogate agrees to blood products: yes DNR status not reviewed with patient and/or family prior to surgery. Significant changes in the patient condition since the History and Physical, not otherwise documented in primary service progress note: no. Potential Anesthesia issues that may suggest increased risk of complications or contraindication to planned procedure: none. No vitals data found for the desired time range. Facility-Administered Medications as of 08/14/2024 Medication Dose Route Frequency lidocaine (PF) 10 mg/mL (1 %) 1-2 mg injection (XYLOCAINE) 0.1-0.2 mL INTRADERMAL PRN lactated ringers iv infusion 5-30 mL/hr INTRAVENOUS CONTINUOUS NaCl 0.9% iv flush bag 20 mL INTRAVENOUS PRN ceFAZolin iv piggyback 2 g in D5W (iso-osmotic) 100 mL (ANCEF) 2 g INTRAVENOUS Pre-Op Once tranexamic acid 1,000 mg in NaCl 0.9% 100 mL (CYKLOKAPRON) 1,000 mg INTRAVENOUS Pre-Op Once tranexamic acid 1,000 mg in NaCl 0.9% 100 mL (CYKLOKAPRON) 1,000 mg INTRAVENOUS ONCE ropivacaine 2.46 mg/mL-EPINEPHrine 0.005 mg/mL-cloNIDine 0.0008 mg/mL-ketorolac 0.3 mg/mL 50 mL injection (R.E.C.K.) 50 mL periarticular ONCE acetaminophen 1,000 mg tab(s) (TYLENOL) 1,000 mg ORAL Pre-Op Once celecoxib 200 mg cap(s) (CeleBREX) 200 mg ORAL Pre-Op Once oxyCODONE ER 10 mg tab(s) (OxyCONTIN) 10 mg ORAL Pre-Op Once famotidine 20 mg injection (PEPCID) 20 mg INTRAVENOUS ONCE promethazine 12.5 mg tab(s) (PHENERGAN) 12.5 mg ORAL Pre-Op Once midazolam (PF) 1-2 mg injection (VERSED) 1-2 mg INTRAVENOUS ONCE Outpatient Medications as of 08/14/2024 Medication Sig metoprolol succinate ER (TOPROL XL) 25 mg 24 hr tablet Take 1 tablet by mouth once daily. OTC PRODUCT Black Seed Oil - Capsules OTC PRODUCT Adebayo Grigsby orclqxl-augu-ziwqy-oreg -capryl 100 mg-150 mg- 50 mg-150 mg cap Take 1 tablet by mouth twice daily. OmegaGenics EPA-DHA 2400 (High Concentrate EPA/DHA liquid) (LearnSomething) Take one teaspoon (5 ml) 1 times daily with food MAGNESIUM ORAL Take 135 Units by mouth once daily. Takes 4 capsules daily ascorbic acid, vitamin C, (VITAMIN C) 500 mg tablet Take 2,000 mg by mouth once daily. B-Complex Plus (Pure Encapsulations) - 1qD stress/energy/hormones/ detox/weight loss Take 1 capsule by mouth once daily. CoQ10, Liposomal Ubiquinol, 200 mg cap Take 1 capsule by mouth daily with food. cholecalciferol (VITAMIN D3) 1,000 unit tab tablet Take 1,000 Units by mouth once daily. I have interviewed and examined the patient. I have reviewed the medical record and/or the pre-anesthesia evaluation, pertinent labs, and test results. This contains updated information obtained within 48 hours of Surgery/Procedure. SIGNATURE: Amber Andres MD PATIENT NAME: Moira Suh DATE: August 14, 2024 TIME: 8:55 AM CSN: [id number] Normal [facility] Hematocrit Auto (Bld) [Volum e fraction]on 08-14-2024 Hematocrit (Bld) [Volume fraction] 37.1 % Normal 36.0-46.0 [facility] Comment on above: Order Comment: Speci men Type: BLOOD SPECIMENOrdering Facility: [facility] Address: [address] [place] [address] Performed By: #### 4 544-3, 718-7 ####[facility]ORYCLIA [id number] [place] [id number] [facility] Hgb Bld-mCncon 08-14-2024 Hemoglobin (Bld) [Mass/Vol] 12.6 g/dL Normal 11.5-15.5 [facility] Comment on above: Order Comment: Speci men Type: BLOOD SPECIMENOrdering Facility: [facility] Address: [address] [place] [address] Performed By: #### 4 544-3, 718-7 ####[facility]ORY[facility] [id number] [place] [id number] [facility] NURSING PROGon 08-14-2024 NURSING PROG HNO ID: [id number] Author: RADHA DAVIES RN Service: Nursing Author Type: Registered Nurse Type: Nursing Progress Note Filed: 08/14/2024 10:00 Note Text: Dr. Andres at bedside for Ultrasound guided Left Adductor nerve block. RN at bedside, pt monitored throughout, BP 167/84 Pulse 66 Temp 37.4 ?C (99.3 ?F) (Temporal Artery) Resp 22 Ht 165.1 cm (5' 5) Wt 101.6 kg (224 lb) SpO2 96% BMI 37.28 kg/m? . Pt medicated with Versed 2 mg IV as per MD orders. Pt tolerated procedure without difficulty. Family called to bedside at completion of procedure. Normal [facility] OPERATIVE NOon 08-14-2024 OPERATIVE NO HNO ID: [id number] Author: NELA FERREIRA MD Service: Orthopaedic Surgery Author Type: Physician Type: Operative Report Filed: 08/15/2024 07:17 Note Text: [facility] OPERATIVE REPORT PATIENT NAME: Moira Suh CSN: [id number] LOG ID: [id number] Surgery Date: 08/14/2024 Surgeon(s) and Veterinary X Ray Operator(s): Surgeons and Role: * Nela Ferreira MD - Primary- surgeon * Sam JO -[employer] Vice Principal No qualified orthopedic resident available. The PA was utilized for soft tissue retraction and to hold the limb in proper alignment to allow me to correctly implant the final arthroplasty components. BMI: Estimated body mass index is 37.6 kg/m? as calculated from the following: Height as of this encounter: 165.1 cm (5' 5). Weight as of this encounter: 102.5 kg (225 lb 15.5 oz). Procedure(s): Procedure(s) (LRB): ROBOTIC ASSISTED TOTAL KNEE ARTHROPLASTY (Left) Anesthesia: Spinal Incision Start: 11:22 AM Incision Stop: 1:00 PM Attestation: I was present for all of the critical portions of the operation and performed all critical portions. The resident/fellow/PA assisted during exposure, implantation of the device, and deep closure. The PA /NURSE ADMINISTRATOR performed the closure of the subcutaneous tissue and skin. I was scrubbed from skin incision through the closure of the extensor mechanism and was immediately available for the duration of the entire case. Preop Diagnosis: Pre-Op Diagnosis Codes: * Primary osteoarthritis of left knee [M17.12] Postop Diagnosis: Same as Pre-Op Diagnosis Codes: * Primary osteoarthritis of left knee [M17.12] Implants: * No implants in log * OPERATIVE INDICATIONS: The patient has a long history of progressive left knee pain, arthritis, and degeneration. Non-operative treatment has been attempted but has not improved or controlled the symptoms and pain that occurs during normal daily activities. Knee motion has also become limited and is restricting the patient. Total knee arthroplasty was recommended. The risks, benefits and potential complications of the arthroplasty surgery were discussed with the patient in detail. Specific details of the surgical procedure, hospitalization, recovery, rehabilitation, and long-term precautions were also presented. Pre-operative teaching was provided. Implant/prosthesis selection was outlined, and the many options available were explained; the final choice will be made at the time of the procedure to match the anatomy and condition of the bone, ligaments, tendons, and muscles. The patient was evaluated medically for pre-operative optimization, and risk assessment. Veronica-operative blood management and the potential for blood transfusion were discussed with risks and options clearly outlined. Understanding of all topics was conveyed to me by the patient pre-operatively, and patient consent was given to proceed with the robotically assisted left total knee replacement. OPERATIVE PROCEDURE: The patient was identified and brought into the Operating Room by the anesthesia and nursing teams. Anesthesia was successfully performed. The patient was then positioned supine on the operating room table, and all bony prominences were padded. Intravenous antibiotic prophylaxis dosing was confirmed. A tourniquet was applied to the upper thigh. A full knee exam was done after anesthesia was in full effect. The patient had developed a varus deformity in the knee from cartilage wear and bone loss. Flexion contracture was moderate. The leg was prepped and draped in the usual sterile fashion. A surgical time-out was performed immediately preceding the incision with all personnel in the operating room; the patient identity was again confirmed, the correct knee surgical site and extremity were identified and confirmed, X-rays were reviewed, and availability of the appropriate surgical equipment was established. A surgical time-out was performed immediately preceding the incision with all personnel in the operating room; the patient identity was again confirmed, the correct knee surgical site and extremity were identified and confirmed, X-rays were reviewed, and availability of the appropriate surgical equipment was established. The knee was exsanguinated and exposed using an anterior-midline skin incision. Dissection was carried down through skin and subcutaneous tissue to the extensor mechanism with a scalpel. A median para-patellar arthrotomy was made to enter the knee space sharply. A large amount of normal appearing joint fluid was encountered and suctioned. The synovium was thickened, hypertrophic, and inflamed. A partial synovectomy was performed for exposure, and the medial and lateral gutters were cleared of scar and synovial reflections. The deep fibers of the medial collateral ligament was carefully elevated off the proximal 5-10 mm of tibial bone. The patella was then subluxed laterally. The knee was (more content not included)... [facility] XR KNEE 2V AP/LAT LTon 08-14 XR KNEE 2V AP/LAT LT * * *Final Report* * * DATE OF EXAM: Aug 14 2024 1:53PM MDX 5206 - XR KNEE 2V AP/LAT LT / PROCEDURE REASON: Post Operative Assessment * * * * Physician Interpretation * * * * PROCEDURE: Left knee INDICATION: Post Operative Assessment.POST OP LEFT KNEE TECHNIQUE: XR KNEE 2V AP/LAT LT COMPARISON: 04/03/2024 FINDINGS: There is a new total knee arthroplasty in satisfactory position with associated postoperative soft tissue changes. No fracture. IMPRESSION: Postop TKA without radiographic complication Churn Drill Operator: BRENNAN Transcribe Date/Time: Aug 14 2024 2:01P Dictated by : NELSON ROTH MD This examination was interpreted and the report reviewed and electronically signed by: NELSON ROTH MD on Aug 14 2024 2:02PM EST [id number] [facility] 08-11-2024 [facility] Telephone (ORMDNA) MOIRA SUH ([id number]) 1950 F Date Time Provider Department 08/11/24 NELA FERREIRA During your visit today, we recorded the following information about you: Korin Diaz RN 08/11/2024 10:58 AM Signed Patient calling with spider bite update 3 inches from wrist up her arm Swelling is still there and better in the am but worse at night No pain unless pushed on bite Surgery is scheduled 08/14 She does state that if the bite increases her risk if any complication, the she is willing to wait Please advise Sam Fabian PA-C 08/11/2024 12:17 PM Signed I called and left Moira a message on her cell phone. We will be good to proceed as long as the bite does not get worse. NISHANT Guo Kelli, RN 08/12/2024 11:10 AM Signed Patient called in She puts collagen peptide powder in her coffee every day and didn't think about it being a med Is she ok still for surgery? Korin Diaz, ILSA 08/13/2024 8:02 AM Addendum Sam Fabian PA-C You17 hours ago (2:24 PM) Ok to proceed, just ask Moira to not use the collagen any more before surgery. Sam Fabian PA-C Spoke with patient and relayed message. Patient verbalized understanding. Allergies As of Date: 08/11/2024 Noted Allergy Reaction ATORVASTATIN CALCIUM 02/15/2016 17 - Myalgia Comments: Caused severe myalgias to bilateral thighs and across back CODEINE 12/27/2007 1 - Mental Status Change Comments: Can hear whats going on around her but she can't wake up CRESTOR (ROSUVASTATIN CALCIUM) 02/15/2016 17 - Myalgia Comments: 20 mg caused severe myalgias to upper thighs and across back Date Reviewed: 08/08/2024 Reviewed by: Slime Ku APRN.OVEN BAKER - Fully Assessed Reason for Visit: Patient Update [1234] Prescriptions as of 08/13/2024 - OTC PRODUCT Black Seed Oil - Capsules - OTC PRODUCT Delmar'ingrid Cooke - metoprolol succinate ER (TOPROL XL) 25 mg 24 hr tablet Take 1 tablet by mouth once daily. - pbxmpej-icdf-tdpsf-oreg -capryl 100 mg-150 mg- 50 mg-150 mg cap Take 1 tablet by mouth twice daily. - OmegaGenics EPA-DHA 2400 (High Concentrate EPA/DHA liquid) (LearnSomething) Take one teaspoon (5 ml) 1 times daily with food - MAGNESIUM ORAL Take 135 Units by mouth once daily. Takes 4 capsules daily - ascorbic acid, vitamin C, (VITAMIN C) 500 mg tablet Take 2,000 mg by mouth once daily. - B-Complex Plus (Pure Encapsulations) - 1qD stress/energy/hormones/ detox/weight loss Take 1 capsule by mouth once daily. - CoQ10, Liposomal Ubiquinol, 200 mg cap Take 1 capsule by mouth daily with food. - cholecalciferol (VITAMIN D3) 1,000 unit tab tablet Take 1,000 Units by mouth once daily. Meds Comments as of 01/05/2023: Current per pt.09/28/15 11.2.23 - patient reports she was told that it is now okay to resume taking all supplements/meds. Problem List As Of Date 08/11/2024 Noted Resolved UTERINE LEIOMYOMA NOS [D25.9] 12/27/2007 MUCOUS POLYP OF CERVIX [N84.1] 12/27/2007 POSTMENOPAUSAL BLEEDING [N95.0] 12/27/2007 Low HDL (under 40) [E78.6] 10/07/2012 Hyperlipidemia [E78.5] 10/07/2012 Multinodular goiter [E04.2] 10/29/2012 CAD (coronary artery disease) [I25.10] 10/15/2015 H/O non-ST elevation myocardial infarction (NST*10/15/2015 S/P CABG x 3 (L-LAD, S-CX, S-RCA) 07/2015 [Z95.1]10/15/2015 Cardiomyopathy, ischemic [I25.5] 10/15/2015 03/11/2019 Moderate mitral regurgitation [I34.0] 10/15/2015 04/26/2016 Obesity [E66.9] 10/15/2015 04/12/2017 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] 04/12/2017 Dry skin [L85.3] 04/12/2017 Hair loss [L65.9] 04/12/2017 BMI 37.0-37.9, adult [Z68.37] 04/12/2017 Exposure to mercury [Z77.018] 04/12/2017 PAF (paroxysmal atrial fibrillation) (HCC) [I48*06/26/2017 Insulin resistance [E88.819] 07/19/2017 Vitamin D deficiency [E55.9] 09/13/2017 Former smoker [Z87.891] 12/21/2022 S/P total knee arthroplasty, right [Z96.651] 01/03/2023 Primary osteoarthritis of left knee [M17.12] 01/22/2023 Primary osteoarthritis of right knee [M17.11] 01/22/2023 Medicare annual wellness visit, subsequent [Z00*10/09/2023 Actinic keratosis [L57.0] 01/02/2024 Myalgia [M79.10] 01/02/2024 Hyperglycemia [R73.9] 01/02/2024 Dysuria [R30.0] 01/02/2024 Aftercare following right knee joint replacemen*01/30/2024 Chronic pain of right knee [M25.561, G89.29] 01/30/2024 Chronic bilateral low back pain [M54.50, G89.29]04/24/2024 Spider bite [T63.301A] 08/08/2024 Encounter Status:Closed by SAM FABIAN on 08/11/24 [facility] PHYSICAL[facility] HISTORY PHYSICAL HNO ID: [id number] Author: SLIME KU APRN.CNP Service: ? Author Type: Nurse Practitioner Type: H&P Filed: 08/12/2024 07:40 Note Text: [facility] HISTORY AND PHYSICAL EXAMINATION SERVICE DATE: 08/08/2024 SERVICE TIME: 7:40 AM PRIMARY CARE PHYSICIAN: Silvestre Chance DO Assessment Patient has the following medical conditions which may affect veronica-operative course: Hyperlipidemia Assessment: Compliant on supplements (coQ10). Follows with PCP. CAD (coronary artery disease) Assessment: S/p NSTEMI in 2015. Reports compliance to medication. Denies any heart palpitations, edema, chest pain, shortness of breath, syncope, activity intolerance, or dizziness. S/p CABG in 2015. Normal stress 11/2022 and echo 03/2022. Follows Cardiology. Office Visit with Amber Nash APRN.CNP (06/06/2024) She is optimized from a cardiac standpoint. She would be at low to moderate risk primarily for her age for her knee surgery. PAF (paroxysmal atrial fibrillation) (HCC) Assessment: post-op CABG, compliant on BB. Denies any heart palpitations, edema, chest pain, shortness of breath, syncope, activity intolerance, or dizziness. HR in office 83. Follows Cardiology. [id number] CHADS2-Vasc Score Breakdown 5 Total Score 1 Female 2 Age >= 75 years old 1 History of hypertension 1 History of vascular disease Ejection Fraction - Result: 61 % Date: 03/28/2022 Time: 15:29:39 Multinodular goiter Assessment: FNA completed, no further work up needed, denies compressive symptoms BMI 37.0-37.9, adult Assessment: Body mass index is 37.28 kg/m?. Spider bite Assessment: Patient bite by spider about two weeks ago. Tiny scab on left wrist today. Still some swelling but no itching. Going to office 08/11 to get spider bite viewed by surgical team. ADDENDUM: August 12, 2024 7:[address] Sziraky, Ok to proceed as scheduled if spider bite does not get worse. ANESTHESIA FINDINGS: Intubation History: No history of difficult intubation. No abnormal airway history Significant Anesthesia Considerations: none Airway History: No history of difficult airway No abnormal airway history Cunningham Activity Status Index: METS: Walk indoors, such as around the house (1.75 METs) Do light work around the house, such as dusting or washing dishes (2.70 METs) Take care of self; that is eating, dressing, bathing, using the toilet (2.75 METs) Walk a block or two on level ground (2.75 METs) DASI Score: 9.95 Patient denies any chest pain or undue shortness of breath with the above physical activity. Clinical Frailty Scale: 3. Well, with treated comorbid disease STOP-Bang Score: Has or is being treated for high blood pressure BMI greater than 35 kg/m2 Patient over 50 years old Denies snoring loudly Denies feeling tired, fatigued, or sleepy during the daytime Has not been observed to stop breathing or choking/gasping during sleep Does not have a large neck Non-male patient STOP-Bang Score: 3 I - PHYSICAL EVALUATION AIRWAY Patient intubated: No. Tracheostomy tube not present Mallampati: II. TM distance: >3 FB. Neck ROM: full ROM without neurological symptoms. Mouth opening: adequate. Short neck: no. Thick neck: no DENTAL Dental findings: teeth intact. II - ANESTHESIA PLAN Anesthetic plan additional comments: *PACC/TCI - anesthesia choice. Beta Reina Monitoring Plan Post Procedure Analgesic Plan Prepared for Surgery: optimally prepared for surgery. Labs and EKG reviewed and acceptable for procedure. CONSULTS: Patient does not require consults for optimization at this time Planned Anesthetic: anesthesia choice The Following Tests/Procedures Have Been Initiated: No orders of the defined types were placed in this encounter. REASON FOR VISIT: Moira Suh is a 74 year old female who is scheduled for Procedure(s): ROBOTIC ASSISTED TOTAL KNEE ARTHROPLASTY (Left) at the request of Dr. Nela Ferreira for consultation. My final recommendation will be communicated back to the requesting physician by way of shared medical record or letter. Subjective The patient has the following: COVID-19 Immunization Status Upcoming Covid-19 Vaccine () Postponed until 01/01/2025 01/02/2024 Postponed until 01/01/2025 by Hafsa Peace LPN (Declined at this time) 02/04/2021 Imm Admin: COVID-19 original vaccine, age 12+ yr, monovalent (PFIZER-BIONTECH - PURPLE TOP) 05/10/2020 Imm Admin: COVID-19 original vaccine, age 12+ yr, monovalent (PFIZER-BIONTECH - PURPLE TOP) Only the first 3 history entries have been loaded, but more history exists. CHIEF COMPLAINT: pre op HPI: Patient is a 74 year old female scheduled for pre anesthesia consultation for a procedure on 08/14/2024 at [facility]. Patient is presenting with left knee pain for years. Reports specific injuries of falling. Reports pain toda (more content not included)... Normal [facility] CNPNon 07-31-2024 CNPN Telephone (ORMDNA) MOIRA SUH ([id number]) 1950 F Date Time Provider Department 07/31/24 NELA FERREIRA During your visit today, we recorded the following information about you: Smith Jones 07/31/2024 3:00 PM Signed Patient saw primary care. The hives were due to a spider bite. She was told to wait 2 weeks. Do you feel this timing is appropriate for her to reschedule? The hives are gone, just a few red dots where they were. Sam Fabian PA-C 07/31/2024 3:47 PM Signed 2 weeks is a good timeframe, to make sure they are no complications. NISHANT Guo Sheila 08/01/2024 3:17 PM Signed Patient informed and rescheduled. Allergies As of Date: 07/31/2024 Noted Allergy Reaction ATORVASTATIN CALCIUM 02/15/2016 17 - Myalgia Comments: Caused severe myalgias to bilateral thighs and across back CODEINE 12/27/2007 1 - Mental Status Change Comments: Can hear whats going on around her but she can't wake up CRESTOR (ROSUVASTATIN CALCIUM) 02/15/2016 17 - Myalgia Comments: 20 mg caused severe myalgias to upper thighs and across back Date Reviewed: 07/30/2024 Reviewed by: Yahaira James LPN - Fully Assessed Reason for Visit: Patient Question [7527] Prescriptions as of 08/01/2024 - OTC PRODUCT Black Seed Oil - Capsules - OTC PRODUCT Adebayo Grigsby - metoprolol succinate ER (TOPROL XL) 25 mg 24 hr tablet Take 1 tablet by mouth once daily. - odmuifj-wzcb-rmbao-oreg -capryl 100 mg-150 mg- 50 mg-150 mg cap Take 1 tablet by mouth twice daily. - OmegaGenics EPA-DHA 2400 (High Concentrate EPA/DHA liquid) (LearnSomething) Take one teaspoon (5 ml) 1 times daily with food - MAGNESIUM ORAL Take 135 Units by mouth once daily. Takes 4 capsules daily - ascorbic acid, vitamin C, (VITAMIN C) 500 mg tablet Take 2,000 mg by mouth once daily. - B-Complex Plus (Pure Encapsulations) - 1qD stress/energy/hormones/ detox/weight loss Take 1 capsule by mouth once daily. - CoQ10, Liposomal Ubiquinol, 200 mg cap Take 1 capsule by mouth daily with food. - cholecalciferol (VITAMIN D3) 1,000 unit tab tablet Take 1,000 Units by mouth once daily. Meds Comments as of 01/05/2023: Current per pt.09/28/15 11.2.23 - patient reports she was told that it is now okay to resume taking all supplements/meds. Problem List As Of Date 07/31/2024 Noted Resolved UTERINE LEIOMYOMA NOS [D25.9] 12/27/2007 MUCOUS POLYP OF CERVIX [N84.1] 12/27/2007 POSTMENOPAUSAL BLEEDING [N95.0] 12/27/2007 Low HDL (under 40) [E78.6] 10/07/2012 Hyperlipidemia [E78.5] 10/07/2012 Multinodular goiter [E04.2] 10/29/2012 CAD (coronary artery disease) [I25.10] 10/15/2015 H/O non-ST elevation myocardial infarction (NST*10/15/2015 S/P CABG x 3 (L-LAD, S-CX, S-RCA) 07/2015 [Z95.1]10/15/2015 Cardiomyopathy, ischemic [I25.5] 10/15/2015 03/11/2019 Moderate mitral regurgitation [I34.0] 10/15/2015 04/26/2016 Obesity [E66.9] 10/15/2015 04/12/2017 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] 04/12/2017 Dry skin [L85.3] 04/12/2017 Hair loss [L65.9] 04/12/2017 BMI 37.0-37.9, adult [Z68.37] 04/12/2017 Exposure to mercury [Z77.018] 04/12/2017 PAF (paroxysmal atrial fibrillation) (HCC) [I48*06/26/2017 Insulin resistance [E88.819] 07/19/2017 Vitamin D deficiency [E55.9] 09/13/2017 Former smoker [Z87.891] 12/21/2022 S/P total knee arthroplasty, right [Z96.651] 01/03/2023 Primary osteoarthritis of left knee [M17.12] 01/22/2023 Primary osteoarthritis of right knee [M17.11] 01/22/2023 Medicare annual wellness visit, subsequent [Z00*10/09/2023 Actinic keratosis [L57.0] 01/02/2024 Myalgia [M79.10] 01/02/2024 Hyperglycemia [R73.9] 01/02/2024 Dysuria [R30.0] 01/02/2024 Aftercare following right knee joint replacemen*01/30/2024 Chronic pain of right knee [M25.561, G89.29] 01/30/2024 Chronic bilateral low back pain [M54.50, G89.29]04/24/2024 Encounter Status:Closed by SMITH JONES on 08/01/24 [facility] CNOVon 07-30-2024 CNOV Office Visit (FAMPWS ) MOIRA SUH ([id number]) 1950 F Date Time Provider Department 07/30/24 1:00 PM SANDY MERIDA During your visit today, we recorded the following information about you: Pulse Respiration Blood pressure Weight 74/minute 12/minute 130/72 101.8 kg Sandy Merida APRN.OVEN BAKER 07/30/2024 1:55 PM Signed This is a 74 year old female who presents today with: Moira is a 74-year-old female with a history of HTN, presenting for evaluation of hives HISTORY OF PRESENT ILLNESS: Hives: - Onset after suspected spider bite while handling laundry. - Initial presentation included a couple small puncture brady on the left wrist/forearm, followed by widespread hives about 2 hours later. - Hives were described as bright red and covered in welts, affecting the arms, abdomen, genitals, thighs, back, ears, and scalp. - Treated with a homeopathic remedy which provided relief. - Hives have mostly resolved, but some itching persists. - Denies need for additional medication for itching. -continues with some mild swelling over left wrist but no pain, no decreased ROM, no warmth, no redness Hypertension: - Reports fluctuating blood pressure readings, with higher readings in medical settings. - Recent readings include 132/72 mmHg at the hat band attacher's office and 170s SBP after the hive situation - Believes blood pressure is affected by anxiety and stress, particularly in medical settings, doesn't like going to doctors and is often rushing to get there on time. -per patient, cardiology felt it could be related to chronic pain with her knee -does check Bps at home and they are intermittently elevated there as well. Knee Surgery: - Scheduled knee surgery was canceled due to the hives. - Concerned about the risk of infection with the current symptoms. - Plans to reschedule surgery once symptoms are completely resolved. - Has standing orders for UTI tests and plans to complete one before the rescheduled surgery to make sure she doesn't have infection going into surgery. Denies any current symptoms. PAST MEDICAL HISTORY: PAST MEDICAL HISTORY Diagnosis Date Atrial fibrillation (HCC) Coronary artery disease Holter monitor, abnormal extra beats Hypercholesteremia Hyperlipidemia Hypertension Insulin resistance 07/19/2017 Leiomyoma of uterus, unspecified Low HDL (under 40) PAST SURGICAL HISTORY Procedure Laterality Date CORONARY ARTERY BYPASS GRAFT HX 2016 3 vessel FNA WITH IMAGING 11/27/2012 U/S FNA bilateral thyroid PAST SURGICAL HISTORY OF age 28 1 ovary removed, 1 tube reconstructed from ectopic PAST SURGICAL HISTORY OF age 20 tendon repairs to wrists after going through glass door PAST SURGICAL HISTORY OF removal of uterine polyp TOTAL KNEE REPLACEMENT Right 01/02/2023 ALLERGIES Atorvastatin Calcium, Codeine, and Crestor [Rosuvastatin Calcium] MEDICATIONS Current Outpatient Medications Medication Sig OTC PRODUCT Black Seed Oil - Capsules OTC PRODUCT Adebayo Grigsby metoprolol succinate ER (TOPROL XL) 25 mg 24 hr tablet Take 1 tablet by mouth once daily. zwgjqat-sugq-nowdu-oreg -capryl 100 mg-150 mg- 50 mg-150 mg cap Take 1 tablet by mouth twice daily. OmegaGenics EPA-DHA 2400 (High Concentrate EPA/DHA liquid) (LearnSomething) Take one teaspoon (5 ml) 1 times daily with food MAGNESIUM ORAL Take 135 Units by mouth once daily. Takes 4 capsules daily ascorbic acid, vitamin C, (VITAMIN C) 500 mg tablet Take 2,000 mg by mouth once daily. B-Complex Plus (Pure Encapsulations) - 1qD stress/energy/hormones/ detox/weight loss Take 1 capsule by mouth once daily. CoQ10, Liposomal Ubiquinol, 200 mg cap Take 1 capsule by mouth daily with food. cholecalciferol (VITAMIN D3) 1,000 unit tab tablet Take 1,000 Units by mouth once daily. No current facility-administered medications for this visit. FAMILY HISTORY Problem Relation Age of Onset Thyroid Mother Hypertension Mother Prostate Cancer Father Thyroid Sister Social History Tobacco Use Smoking status: Former Current packs/day: 1.00 Average packs/day: 1 pack/day for 10.0 years (10.0 ttl pk-yrs) Types: Cigarettes Smokeless tobacco: Never Vaping Use Vaping status: Never Used Substance Use Topics Alcohol use: Yes Comment: socially Drug use: No REVIEW OF SYSTEMS Skin: (+) pruritus, (+) dryness Musculoskeletal: (+) left wrist swelling, (+) chronic knee pain Psychiatric: (+) anxiety See HPI (anxiety is situational, denies anxiety at home , no regular stressors) EXAM: BP 130/72 (BP Site: Left Arm, BP Position: Sitting, BP Cuff Size: Large Adult) Pulse 74 Resp 12 Wt 101.8 kg (224 lb 6.4 oz) SpO2 99% BMI 37.34 kg/m? PHYSICAL EXAM: General Appearance: Well appearing, alert, in no acute distress, well-hydrated, well nourished.. Skin: Left wrist sti (more content not included)... Normal [facility] CNPNon 07-29-2024 CNPN Telephone (FAMPWS) MOIRA SUH ([id number]) 1950 F Date Time Provider Department 07/29/24 SANDY MERIDA During your visit today, we recorded the following information about you: Jessie Aleman, RN 07/29/2024 8:54 AM Signed Pt called in and reports she was supposed to have a knee arthroplasty with Dr Ferreira, but he cancelled it because the broke out in hives. She states she thinks it was because of a spider bite. She said she was doing laundry in her basement and she was picking up the laundry and throwing it over he left arm. She thought it was a mosquito bite at first, but then notices two puncture diaz. Pt states she got hives on her scalp and all over her body, torso, back, buttocks, both legs, both arms, and places she couldn't even see. She states she took a homeopathic remedy called Histamine something and it got rid of most of them. Pt reports all the hives on her stomach and arms are gone. She reports the ones on her scalp are still there. Pt will have to have her check other areas. She said the surgeon wanted her to be seen to see why she got the hives before he rescheduled the surgery. Pt scheduled with Sandy Merida NP tomorrow at 1 pm[address] if Dr Chance could tell her what she should be doing for the hives. ILSA Galvan Bernadette, PA-C 07/29/2024 9:42 AM Signed Can taking claritin or zyrtec or benadryl (will make her sleepy). Keep appointment tomorrow for recheck, seek care sooner if severe worsening symptoms or any swelling of the tongue, throat, difficulty breathing, swallowing. Nica Rodríguez PA-C 07/29/2024 Latonia Romano MA 07/29/2024 9:56 AM Signed Attempted to contact patient with no answer or vm. Please try again SILVANA Morocho Amanda, RN 07/29/2024 12:43 PM Signed Pt called and is notified of providers message and instructions. Pt voices understanding. She states she is taking the homeopathic medication. Jessie Aleman RN Allergies As of Date: 07/29/2024 Noted Allergy Reaction ATORVASTATIN CALCIUM 02/15/2016 17 - Myalgia Comments: Caused severe myalgias to bilateral thighs and across back CODEINE 12/27/2007 1 - Mental Status Change Comments: Can hear whats going on around her but she can't wake up CRESTOR (ROSUVASTATIN CALCIUM) 02/15/2016 17 - Myalgia Comments: 20 mg caused severe myalgias to upper thighs and across back Date Reviewed: 07/17/2024 Reviewed by: Jatinder Mustafa LPN - Fully Assessed Reason for Visit: Patient Update [1234] Appointment [186] Prescriptions as of 07/29/2024 - OTC PRODUCT Black Seed Oil - Capsules - OTC PRODUCT Adebayo Grigsby - metoprolol succinate ER (TOPROL XL) 25 mg 24 hr tablet Take 1 tablet by mouth once daily. - gazqolz-ybor-vedqi-oreg -capryl 100 mg-150 mg- 50 mg-150 mg cap Take 1 tablet by mouth twice daily. - OmegaGenics EPA-DHA 2400 (High Concentrate EPA/DHA liquid) (LearnSomething) Take one teaspoon (5 ml) 1 times daily with food - MAGNESIUM ORAL Take 135 Units by mouth once daily. Takes 4 capsules daily - ascorbic acid, vitamin C, (VITAMIN C) 500 mg tablet Take 2,000 mg by mouth once daily. - B-Complex Plus (Pure Encapsulations) - 1qD stress/energy/hormones/ detox/weight loss Take 1 capsule by mouth once daily. - CoQ10, Liposomal Ubiquinol, 200 mg cap Take 1 capsule by mouth daily with food. - cholecalciferol (VITAMIN D3) 1,000 unit tab tablet Take 1,000 Units by mouth once daily. Meds Comments as of 01/05/2023: Current per pt.09/28/15 11.2.23 - patient reports she was told that it is now okay to resume taking all supplements/meds. Problem List As Of Date 07/29/2024 Noted Resolved UTERINE LEIOMYOMA NOS [D25.9] 12/27/2007 MUCOUS POLYP OF CERVIX [N84.1] 12/27/2007 POSTMENOPAUSAL BLEEDING [N95.0] 12/27/2007 Low HDL (under 40) [E78.6] 10/07/2012 Hyperlipidemia [E78.5] 10/07/2012 Multinodular goiter [E04.2] 10/29/2012 CAD (coronary artery disease) [I25.10] 10/15/2015 H/O non-ST elevation myocardial infarction (NST*10/15/2015 S/P CABG x 3 (L-LAD, S-CX, S-RCA) 07/2015 [Z95.1]10/15/2015 Cardiomyopathy, ischemic [I25.5] 10/15/2015 03/11/2019 Moderate mitral regurgitation [I34.0] 10/15/2015 04/26/2016 Obesity [E66.9] 10/15/2015 04/12/2017 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] 04/12/2017 Dry skin [L85.3] 04/12/2017 Hair loss [L65.9] 04/12/2017 BMI 37.0-37.9, adult [Z68.37] 04/12/2017 Exposure to mercury [Z77.018] 04/12/2017 PAF (paroxysmal atrial fibrillation) (HCC) [I48*06/26/2017 Insulin resistance [E88.819] 07/19/2017 Vitamin D deficiency [E55.9] 09/13/2017 Former smoker [Z87.891] 12/21/2022 S/P total knee arthroplasty, right [Z96.651] 01/03/2023 Primary osteoarthritis of left knee [M17.12] 01/22/2023 Primary osteoarthritis of right knee [M17.11] 01/22/2023 Medicare annual wellness visit, subsequent [Z00*10/09/2023 Actinic keratosis (more content not included)... Normal [facility] CT Knee - left WO contraston 07-20-2024 IMPRESSION: Limited CT images for the purposes of presurgical planning. There is no unexpected acute or aggressive abnormality. Churn Drill Operator: PSCB Transcribe Date/Time: Jul 20 2024 6:36P Dictated by : LAURA MEDINA MD This examination was interpreted and the report reviewed and electronically signed by: LAURA MEDINA MD on Jul 20 2024 6:39PM [facility] * * *Final Report* * * DATE OF EXAM: Jul 18 2024 5:43PM [facility] [place]EE [place] IVCON LT / PROCEDURE REASON: M17.12-Primary osteoarthritis of left knee * * * * Physician Interpretation * * * * CT KNEE WO IVCON LT 07/18/2024 5:43 PM HISTORY: Primary osteoarthritis of left knee TECHNIQUE: Non-contrast axial CT imaging of the left knee was performed. Contrast: None. CT Radiation dose: Integrated Dose-length product (DLP) for this visit = 989 mGy*cm. CT Dose Reduction Employed: Automated exposure control(AEC) and iterative recon COMPARISON: None. RESULT: Hip: Mild degenerative changes. Knee: There is tricompartmental degenerative arthrosis with joint line osteophytes and joint space loss, greatest at the medial femorotibial articulation. Small effusion. Ankle: Mild degenerative changes. Other findings: Bulky uterus with multiple calcified fibroids. Freelance Web Designer (topogram) images: No additional findings. [facility] Provider, Laurita Avila - 07/20/2024 * * *Final Report* * * DATE OF EXAM: Jul 18 2024 5:43PM [facility] [place] KNEE WO IVCON LT / PROCEDURE REASON: M17.12-Primary osteoarthritis of left knee * * * * Physician Interpretation * * * * CT KNEE WO IVCON LT 07/18/2024 5:43 PM HISTORY: Primary osteoarthritis of left knee TECHNIQUE: Non-contrast axial CT imaging of the left knee was performed. Contrast: None. CT Radiation dose: Integrated Dose-length product (DLP) for this visit = 989 mGy*cm. CT Dose Reduction Employed: Automated exposure control(AEC) and iterative recon COMPARISON: None. RESULT: Hip: Mild degenerative changes. Knee: There is tricompartmental degenerative arthrosis with joint line osteophytes and joint space loss, greatest at the medial femorotibial articulation. Small effusion. Ankle: Mild degenerative changes. Other findings: Bulky uterus with multiple calcified fibroids. Freelance Web Designer (topogram) images: No additional findings. IMPRESSION IMPRESSION: Limited CT images for the purposes of presurgical planning. There is no unexpected acute or aggressive abnormality. Churn Drill Operator: BRENNAN Transcribe Date/Time: Jul 20 2024 6:36P Dictated by : LAURA MEDINA MD This examination was interpreted and the report reviewed and electronically signed by: LAURA MEDINA MD on Jul 20 2024 6:39PM EST [facility] CT Knee - left WO contrastOr dered By: Ccf Provider on 07-20-20[address] [facility] [address] KNEE WO IVCON LTon 2024 CT KNEE WO IVCON LT * * *Final Report* * * DATE OF EXAM: Jul 18 2024 5:43PM [facility] [place] KNEE WO IVCON LT / PROCEDURE REASON: M17.12-Primary osteoarthritis of left knee * * * * Physician Interpretation * * * * CT KNEE WO IVCON LT 07/18/2024 5:43 PM HISTORY: Primary osteoarthritis of left knee TECHNIQUE: Non-contrast axial CT imaging of the left knee was performed. Contrast: None. CT Radiation dose: Integrated Dose-length product (DLP) for this visit = 989 mGy*cm. CT Dose Reduction Employed: Automated exposure control(AEC) and iterative recon COMPARISON: None. RESULT: Hip: Mild degenerative changes. Knee: There is tricompartmental degenerative arthrosis with joint line osteophytes and joint space loss, greatest at the medial femorotibial articulation. Small effusion. Ankle: Mild degenerative changes. Other findings: Bulky uterus with multiple calcified fibroids. Freelance Web Designer (topogram) images: No additional findings. IMPRESSION: Limited CT images for the purposes of presurgical planning. There is no unexpected acute or aggressive abnormality. Churn Drill Operator: PSCB Transcribe Date/Time: Jul 20 2024 6:36P Dictated by : LAURA MEDINA MD This examination was interpreted and the report reviewed and electronically signed by: LAURA MEDINA MD on Jul 20 2024 6:39PM EST [id number] Normal [facility] CT Knee - left WO contraston 07-18-2024 Radiology Study observation (narrative) [facility] CNOVon 07-17-2024 CNOV Office Visit (CARDMM ) WILLEMCullenMOIRA ([id number]) 1950 F Date Time Provider Department 07/17/24 1:30 PM AMBER NASH During your visit today, we recorded the following information about you: Pulse Blood pressure Weight Height 70/minute 164/88 100.7 kg 1.651 m Amber Nash APRN.OVEN BAKER 07/18/2024 7:55 AM Signed [facility] [place] [facility] Department of Cardiovascular Medicine SECTION OF CLINICAL CARDIOLOGY OUTPATIENT VISIT DATE July 17, 2024 OUTPATIENT VISIT TYPE ESTABLISHED PRIMARY CARE PHYSICIAN: Silvestre Chance [address] [place] [address] REFERRING PHYSICIAN: No referring provider defined for this encounter. CHIEF COMPLAINT: No chief complaint on file. HISTORY OF PRESENT ILLNESS: Ms. Suh is a 74 year old female with PMH of CAD/CABG x 3 ( LLANOS-LAD, SVG-LCX, SVG-RCA), hyperlipidemia, elevated LP(a), vitamin D deficiency, who presents today for a cardiovascular medicine follow-up visit after I saw her in early June. She is due to have knee surgery the end of July. She denies shortness of breath, chest pain, palpitations, dizziness, lightheadedness, lower extremity edema, PND, orthopnea, presyncope, syncope, or claudication symptoms Subjective PAST MEDICAL HISTORY Diagnosis Date Atrial fibrillation (HCC) Coronary artery disease Holter monitor, abnormal extra beats Hypercholesteremia Hyperlipidemia Hypertension Insulin resistance 07/19/2017 Leiomyoma of uterus, unspecified Low HDL (under 40) PAST SURGICAL HISTORY Procedure Laterality Date CORONARY ARTERY BYPASS GRAFT HX 2016 3 vessel FNA WITH IMAGING 11/27/2012 U/S FNA bilateral thyroid PAST SURGICAL HISTORY OF age 28 1 ovary removed, 1 tube reconstructed from ectopic PAST SURGICAL HISTORY OF age 20 tendon repairs to wrists after going through glass door PAST SURGICAL HISTORY OF removal of uterine polyp TOTAL KNEE REPLACEMENT Right 01/02/2023 Social History Tobacco Use Smoking status: Former Current packs/day: 1.00 Average packs/day: 1 pack/day for 10.0 years (10.0 ttl pk-yrs) Types: Cigarettes Smokeless tobacco: Never Vaping Use Vaping status: Never Used Substance Use Topics Alcohol use: Yes Comment: socially Drug use: No FAMILY HISTORY Problem Relation Age of Onset Thyroid Mother Hypertension Mother Prostate Cancer Father Thyroid Sister ALLERGIES: ALLERGIES Allergen Reactions Atorvastatin Calcium Myalgia Caused severe myalgias to bilateral thighs and across back Codeine Mental Status Change Can hear whats going on around her but she can't wake up Crestor [Rosuvastat* Myalgia 20 mg caused severe myalgias to upper thighs and across back MEDICATIONS: iv contrast (will be provided with radiology test) MRI Brain Inject, intravenously, once for 1 dose.No IV access, insert saline lock prior to beginning of sedation, infusion, injection of imaging exam.Discontinue saline lock post exam. If Pt. has a central line or IVAD, may access for administration according to line specific nursing protocol.Once exam is complete flush line and de-access according to line specific nursing protocol in the MR contrast administration guidelines link OTC PRODUCT Black Seed Oil - Capsules OTC PRODUCT Lishikha's Seb metoprolol succinate ER (TOPROL XL) 25 mg 24 hr tablet Take 1 tablet by mouth once daily. ukevizs-hsqw-hlmoz-oreg -capryl 100 mg-150 mg- 50 mg-150 mg cap Take 1 tablet by mouth twice daily. OmegaGenics EPA-DHA 2400 (High Concentrate EPA/DHA liquid) (Metagenics) Take one teaspoon (5 ml) 1 times daily with food MAGNESIUM ORAL Take 135 Units by mouth once daily. Takes 4 capsules daily ascorbic acid, vitamin C, (VITAMIN C) 500 mg tablet Take 2,000 mg by mouth once daily. B-Complex Plus (Pure Encapsulations) - 1qD stress/energy/hormones/ detox/weight loss Take 1 capsule by mouth once daily. CoQ10, Liposomal Ubiquinol, 200 mg cap Take 1 capsule by mouth daily with food. cholecalciferol (VITAMIN D3) 1,000 unit tab tablet Take 1,000 Units by mouth once daily. REVIEW OF SYSTEMS: CARD: See HPI GENERAL: Negative for: Weight loss or gain, Fever and/or Chills HEENT: Negative for: Headache, Impaired Vision, Glasses, Hearing Impairment, Ringing in Ears, Nosebleeds, Bleeding Gums NECK: Negative for: Swelling, Pain, Stiffness RESPIRATORY: Negative for: Cough, Blood in Sputum, Shortness of breath, Wheezing, Apnea GASTROINTESTINAL: Negative for: Nausea, Vomiting, Diarrhea, Blood in stool, or Dark black stools MUSCULOSKELETAL: Negative for: Muscle or joint pain, Stiffness , Joint swelling NEUROLOGIC: Negative for: focal numbness/weakness, headaches, visual changes, ataxia, speech/language loss HEMATOLOGICAL/LYMPHATIC : Negative for: Easy bruising , Easy bleeding Object (more content not included)... Normal [facility] 07-15-2024 [facility] Telephone (HI2E) MOIRA SUH ([id number]) 1950 F Date Time Provider Department 07/15/24 [facility] [place] During your visit today, we recorded the following information about you: Eliu Ramos PSS 07/16/2024 12:02 PM Signed TOTAL JOINT COMPLETE CARE PROGRAM PRE-OPERATIVE TEACHING Service Date: 07/15/2024 Service Time: 12:02 PM Date of : 1950 Gender: female Date of Surgery: 07/29/24 Procedure: Left 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 Complete Care Program was discussed with the patient: Product Marketing Specialist Identification: Patient identified a respiratory care practitioner to help when discharged to home: Home Environment: Home Layout: 2 story, Entry Steps: 2, Bedroom Location: 1st floor, Bathroom Location: 1st floor, and walk in shower. Pt owns walker, cane. Discussed with patient importance of attending joint education class and provided date and times of class: YES declined, had TKA 12/25 Patient received Joint Education Binder: Yes Patient plans discharge home with [facility]. SIGNATURE: SELVIN Sousa PATIENT NAME: Moira Suh DATE: July 15, 2024 TIME: 7:22 AM Allergies As of Date: 07/15/2024 Noted Allergy Reaction ATORVASTATIN CALCIUM 02/15/2016 17 - Myalgia Comments: Caused severe myalgias to bilateral thighs and across back CODEINE 12/27/2007 1 - Mental Status Change Comments: Can hear whats going on around her but she can't wake up CRESTOR (ROSUVASTATIN CALCIUM) 02/15/2016 17 - Myalgia Comments: 20 mg caused severe myalgias to upper thighs and across back Date Reviewed: 07/14/2024 Reviewed by: Tracey Esquivel MA - Fully Assessed Prescriptions as of 07/16/2024 - mupirocin (BACTROBAN) 2 % ointment Apply 0.5 inch with cotton swab (Q-tip) to each nostril in the morning and evening for 5 days prior to and including day of surgery. - OTC PRODUCT Black Seed Oil - Capsules - OTC PRODUCT Lion's Seb - metoprolol succinate ER (TOPROL XL) 25 mg 24 hr tablet Take 1 tablet by mouth once daily. - hsxkbco-fjfp-oglyc-oreg -capryl 100 mg-150 mg- 50 mg-150 mg cap Take 1 tablet by mouth twice daily. - OmegaGenics EPA-DHA 2400 (High Concentrate EPA/DHA liquid) (LearnSomething) Take one teaspoon (5 ml) 1 times daily with food - MAGNESIUM ORAL Take 135 Units by mouth once daily. Takes 4 capsules daily - ascorbic acid, vitamin C, (VITAMIN C) 500 mg tablet Take 2,000 mg by mouth once daily. - B-Complex Plus (Pure Encapsulations) - 1qD stress/energy/hormones/ detox/weight loss Take 1 capsule by mouth once daily. - CoQ10, Liposomal Ubiquinol, 200 mg cap Take 1 capsule by mouth daily with food. - cholecalciferol (VITAMIN D3) 1,000 unit tab tablet Take 1,000 Units by mouth once daily. Meds Comments as of 01/05/2023: Current per pt.09/28/15 11.2.23 - patient reports she was told that it is now okay to resume taking all supplements/meds. Problem List As Of Date 07/15/2024 Noted Resolved UTERINE LEIOMYOMA NOS [D25.9] 12/27/2007 MUCOUS POLYP OF CERVIX [N84.1] 12/27/2007 POSTMENOPAUSAL BLEEDING [N95.0] 12/27/2007 Low HDL (under 40) [E78.6] 10/07/2012 Hyperlipidemia [E78.5] 10/07/2012 Multinodular goiter [E04.2] 10/29/2012 CAD (coronary artery disease) [I25.10] 10/15/2015 H/O non-ST elevation myocardial infarction (NST*10/15/2015 S/P CABG x 3 (L-LAD, S-CX, S-RCA) 07/2015 [Z95.1]10/15/2015 Cardiomyopathy, ischemic [I25.5] 10/15/2015 03/11/2019 Moderate mitral regurgitation [I34.0] 10/15/2015 04/26/2016 Obesity [E66.9] 10/15/2015 04/12/2017 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] 04/12/2017 Dry skin [L85.3] 04/12/2017 Hair loss [L65.9] 04/12/2017 BMI 37.0-37.9, adult [Z68.37] 04/12/2017 Exposure to mercury [Z77.018] 04/12/2017 PAF (paroxysmal atrial fibrillation) (HCC) [I48*06/26/2017 Insulin resistance [E88.819] 07/19/2017 Vitamin D deficiency [E55.9] 09/13/2017 Former smoker [Z87.891] 12/21/2022 S/P total knee arthroplasty, right [Z96.651] 01/03/2023 Primary osteoarthritis of left knee [M17.12] 01/22/2023 Primary osteoarthritis of right knee [M17.11] 01/22/2023 Medicare annual wellness visit, subsequent [Z00*10/09/2023 Actinic keratosis [L57.0] 01/02/2024 Myalgia [M79.10] 01/02/2024 Hyperglycemia [R73.9] 01/02/2024 Dysuria [R30.0] 01/02/2024 Aftercare following right knee joint replacemen*01/30/2024 Chronic pain of right knee [M25.561, G89.29] 01/30/2024 Chronic bilateral low back pain [M54.50, G89.29]04/24/2024 Encounter Status:Closed by ELIU RAMOS [facility] Office Visit (ORMDNA ) MOIRA SUH ([id number]) 1950 F Date Time Provider Department 07/14/24 2:15 PM NELA FERREIRA During your visit today, we recorded the following information about you: Nela Ferreira MD 08/11/2024 12:47 PM Signed CONSULT ORTHOPAEDIC: KNEE PRIMARY CARE PHYSICIAN: Silvestre Chance DO REFERRING PROVIDER: No referring provider defined for this encounter. ASSESSMENT AND PLAN Impression: Left Knee Severe Degenerative Osteoarthritis, Primary Diagnoses: Osteoarthritis left knee Based upon the evaluation today and after discussions with Moira Suh, Moira Suh has significant, worsening pain at the knee. This pain is increased with activity and weight bearing, and interferes with activities of daily living. These symptoms have continued despite a number of non-surgical measures, including a trial of oral pain medication and attempted physical therapy/ structured exercise program and/or use of an assistive device/ bracing (for at least 12 weeks unless the patient was unable to tolerate these measures as discussed above). At this point, the patient will not benefit from further PT due to the severity of their condition. The patient's physical examination is consistent with limitations in range of motion, pain with passive range of motion, crepitus, and effusion/ synovitis. These examination findings are corroborated by imaging findings of joint space narrowing, periarticular osteophyte formation, and subchondral sclerosis. The patient has been treated by the practice and all reasonable treatments have failed to control the disease, which causes significant pain and limits activities of daily living. The patient has failed conservative treatment and joint replacement surgery was discussed and agreed upon by both provider and patient. We will proceed with surgical management to improve function and relieve pain refractory to non-surgical measures. Left Primary Total Knee Arthroplasty as evidenced by progressive symptoms. Progressive Symptoms Include: Pain impacting sleep or causing fatigue Pain worsened by weight bearing Pain effecting living situation Pain limiting ability to stay fit and healthy. Surgery Details Date and Location: At [facility] on date to be determined. Implants: Faiza Robotic: Yes Predicted LOS: 2 days (Inpatient candidate) Informed consent obtained in the office today. The risks and benefits of surgery were discussed at length including but not limited to the risks of infection, bleeding, nerve or blood vessel injury, deep venous thrombosis, pulmonary embolism, arthrofibrosis, reflex sympathetic dystrophy, , paralysis, knee or patellar dislocation, extensor mechanism injury, bone fracture, component loosening or failure requiring re-operation or amputation. Informed consent was obtained and the patient was scheduled for surgery. We also discussed fixation strategies including cement and cementless fixation and advantages and disadvantages of each. We discussed the details of the surgery as well as rehabilitation. All questions were answered, and the patient wishes to proceed with surgery.. The patient has been ordered: CT scan for preoperative planning and anemia screen will be ordered CONSULTS: IMPACT/PACE Consult for preoperative clearance. Total Joint Arthroplasty: Risk Calculator Moira Suh has a 24.86% chance of NOT returning home at discharge for a Primary total Knee replacement. Moira's estimated Length of Stay is 2 days (Inpatient candidate). Moira's 30 day chance of readmission is 3.96%. Readmission Probability 3.96 % (within 30 days following surgery) Estimated LOS 2 days Discharge Disposition Probability D/C to Home 75.14 % D/C to SNF 24.86 % These calculations are based on the following factors: - 74 years of age - sex is not male - BMI of 37.28 kg/m2 - NarxCare score of 60 - 0 hospitalizations in the last 12 months - history of heart disease - no history of diabetes - no history of COPD - history of anemia - preoperative ambulation: impaired community distances - 2 step(s) to enter home - bed location is on the first floor - bath location is on the first floor - caregiver is consistent - home is not more than 150 miles away - PROMIS-10 Mental Health T score 50+ - Marital status: Risk Factors for Total Knee Arthroplasty (TKA) Major Risk Factors Obesity Moderate Risk High: BMI > 40 Moderate: BMI 30-40 Normal: BMI < 30 Diabetes normal High: A1C > 8 Moderate: A1C 7-8 Normal: A1C < 7 Hx of DVT / PE normal High: dx of DVT / PE Normal: no dx of DVT / PE Smoking normal High: Current smoker Normal: Non smoker Narcotics Use normal High:NarxCare >=300 Moderate: 100-299 Normal: 0-99 Depression Unknown Risk High: PHQ-9 >14 Moderate: PHQ-9 5-14 Normal: PHQ-9 < (more content not included)... Normal [facility] MR Brain WO and W contrast I Von 07-11-2024 IMPRESSION: 1. STABLE MODERATELY-LARGE RIGHT ORBITAL FRONTAL MENINGIOMA, DETAILED 2. STABLE SMALL LEFT FRONTAL MENINGIOMA 3. NO OTHER SUSPICIOUS SIGNAL ABNORMALITY OR ENHANCEMENT Churn Drill Operator: BRENNAN Transcribe Date/Time: Jul 11 2024 2:35P Dictated by : WEST MEDINA MD This examination was interpreted and the report reviewed and electronically signed by: WEST MEDINA MD on Jul 11 2024 2:42PM [facility] DIVISION OF RADIOLOGY * * *Final Report* * * DATE OF EXAM: Jul 11 2024 2:00PM [facility] 0295 - MRI BRAIN WO/W IVCON / PROCEDURE REASON: Benign neoplasm of meninges (HCC) * * * * Physician Interpretation * * * * EXAMINATION: MRI BRAIN WO/W IVCON CLINICAL HISTORY: 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 MQ: [id number] Contrast: 10 mL Elucirem IV COMPARISON: Brain MRI 07/20/2023, demonstrating prominent likely meningioma in right inferior frontal lobe RESULT: Acute Change: There is no evidence of restricted diffusion to suggest an acute infarct. Hemorrhage: No evidence of prior parenchymal hemorrhage on the susceptibility weighted images. Mass Lesion/ Mass Effect: Redemonstrated is previously seen avidly enhancing extra-axial mass abutting the right orbital floor of the anterior cranial fossa. Using 3-D MPR techniques to coregister identical planes to 07/20/2023, there is no significant change, to within half a millimeter. Maximal orthogonal measurements remain about 27 x 27 x 21 mm. There is a slight dural tail. There is minimal adjacent parenchymal reaction. Mass effect is local, with no herniation or shift. There is no laura hypercellularity. There are no laura internal calcifications or hemorrhagic products. Over the left posterior frontal lobe there is a similar dural based enhancing lesion projecting about 6 mm off of the dural surface over a base diameter of about 12 mm, and is also grossly stable. No other similar extra-axial enhancement is present to suggest other synchronous lesion. There is no similar extra-axial enhancement to suggest synchronous lesion elsewhere. Chronic Change: The white matter is within normal limits of signal intensity for age. Parenchyma: No significant volume loss for age. The brain parenchyma is otherwise within normal limits of signal intensity and morphology. Ventricles: Normal caliber and morphology. Skull Base: Hypothalamic and pituitary region are grossly normal. Craniocervical junction is normal. No significant marrow replacement process. Vasculature: Major intracranial arterial structures, and dural venous sinuses show typical flow void, suggesting patency by spin echo criteria. Other: The visualized paranasal sinuses and mastoid air cells are clear. The orbits and extracranial soft tissues are unremarkable. 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 MQ: [id number] Contrast: 10 mL Elucirem IV COMPARISON: Brain MRI 07/20/2023, demonstrating prominent likely meningioma in right inferior frontal lobe RESULT: Acute Change: There is no evidence of restricted diffusion to suggest an acute infarct. Hemorrhage: No evidence of prior parenchymal hemorrhage on the susceptibility weighted images. Mass Lesion/ Mass Effect: Redemonstrated is previously seen avidly enhancing extra-axial mass abutting the right orbital floor of the anterior cranial fossa. Using 3-D MPR techniques to coregister identical planes to 07/20/2023, there is no significant change, to within half a millimeter. Maximal orthogonal measurements remain about 27 x 27 x 21 mm. There is a slight dural tail. There is minimal adjacent parenchymal reaction. Mass effect is local, with no herniation or shift. There is no laura hypercellularity. There are no larua internal calcifications or hemorrhagic products. Over the left posterior frontal lobe there is a similar dural based enhancing lesion projecting about 6 mm off of the dural surface over a base diameter of about 12 mm, and is also grossly stable. No other similar extra-axial enhancement is present to suggest other synchronous lesion. There is no similar extra-axial enhancement to suggest synchronous lesion elsewhere. Chronic Change: The white matter is within normal limits of signal intensity for age. Parenchyma: No significant volume loss for age. The brain parenchyma is otherwise within normal limits of signal intensity and morphology. Ventricles: Normal caliber and morphology. Skull Base: Hypothalamic and pituitary region are grossly normal. Craniocervical junction is normal. No significant marrow replacement process. Vasculature: Major intracranial arterial structures, and dural venous sinuses show typical flow void, suggesting patency by spin echo criteria. Other: The visualized paranasal sinuses and mastoid air cells are clear. The orbits and extracranial soft tissues are unremarkable. IMPRESSION IMPRESSION: 1. STABLE MODERATELY-LARGE RIGHT ORBITAL FRONTAL MENINGIOMA, DETAILED 2. STABLE SMALL LEFT FRONTAL MENINGIOMA 3. NO OTHER SUSPICIOUS SIGNAL ABNORMALITY OR ENHANCEMENT Churn Drill Operator: BRENNAN Transcribe Date/Time: Jul 11 2024 2:35P Dictated by : WEST MEDINA MD This examination was interpreted and the report reviewed and electronically signed by: WEST MEDINA MD on Jul 11 2024 2:42PM EST [facility] Radiology Study observation (narrative) [facility] MR Brain WO and W contrast I VOrdered By: Ccf Provider on 07-11-2024 [facility] MRI BRAIN WO/W IVCONon 07-11 MRI BRAIN WO/W IVCON * * *Final Report* * * DATE OF EXAM: Jul 11 2024 2:00PM [facility] 0295 - MRI BRAIN WO/W IVCON / PROCEDURE REASON: Benign neoplasm of meninges (HCC) * * * * Physician Interpretation * * * * EXAMINATION: MRI BRAIN WO/W IVCON CLINICAL HISTORY: 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 MQ: [id number]_2 Contrast: 10 mL Elucirem IV COMPARISON: Brain MRI 07/20/2023, demonstrating prominent likely meningioma in right inferior frontal lobe RESULT: Acute Change: There is no evidence of restricted diffusion to suggest an acute infarct. Hemorrhage: No evidence of prior parenchymal hemorrhage on the susceptibility weighted images. Mass Lesion/ Mass Effect: Redemonstrated is previously seen avidly enhancing extra-axial mass abutting the right orbital floor of the anterior cranial fossa. Using 3-D MPR techniques to coregister identical planes to 07/20/2023, there is no significant change, to within half a millimeter. Maximal orthogonal measurements remain about 27 x 27 x 21 mm. There is a slight dural tail. There is minimal adjacent parenchymal reaction. Mass effect is local, with no herniation or shift. There is no laura hypercellularity. There are no laura internal calcifications or hemorrhagic products. Over the left posterior frontal lobe there is a similar dural based enhancing lesion projecting about 6 mm off of the dural surface over a base diameter of about 12 mm, and is also grossly stable. No other similar extra-axial enhancement is present to suggest other synchronous lesion. There is no similar extra-axial enhancement to suggest synchronous lesion elsewhere. Chronic Change: The white matter is within normal limits of signal intensity for age. Parenchyma: No significant volume loss for age. The brain parenchyma is otherwise within normal limits of signal intensity and morphology. Ventricles: Normal caliber and morphology. Skull Base: Hypothalamic and pituitary region are grossly normal. Craniocervical junction is normal. No significant marrow replacement process. Vasculature: Major intracranial arterial structures, and dural venous sinuses show typical flow void, suggesting patency by spin echo criteria. Other: The visualized paranasal sinuses and mastoid air cells are clear. The orbits and extracranial soft tissues are unremarkable. IMPRESSION: 1. STABLE MODERATELY-LARGE RIGHT ORBITAL FRONTAL MENINGIOMA, DETAILED 2. STABLE SMALL LEFT FRONTAL MENINGIOMA 3. NO OTHER SUSPICIOUS SIGNAL ABNORMALITY OR ENHANCEMENT Churn Drill Operator: BRENNAN Transcribe Date/Time: Jul 11 2024 2:35P Dictated by : WEST MEDINA MD This examination was interpreted and the report reviewed and electronically signed by: WEST MEDINA MD on Jul 11 2024 2:42PM EST [id number] Normal [facility] 25(OH)D3 [facility] 25-hydroxyvitamin D3 [Mass/Vol] 40.3 ng/mL Normal 31.0-80.0 [facility] Comment on above: Order Comment: Speci men Type: BLOOD SPECIMENOrdering Facility: [facility] Address: [address] [place] [address] Result Comment: Clas sification of 25 [place] Vitamin D status: Deficiency/Insufficiency: < or = 30 ng/ml. Sufficiency/Optimal Levels: 31-80 ng/mL Toxicity: > 100 ng/mL. Test performed by chemiluminescent immunoassay. Performed By: #### 1 989-3 ####[facility] LABCLIA [id number] [place] [address] [place] Albumin [facility] 025 Albumin [Mass/Vol] 4.5 g/dL Normal 3.9-4.9 [facility] Comment on above: Order Comment: Speci men Type: BLOOD SPECIMENOrdering Facility: [facility] Address: [address] [place] [address] Performed By: #### 2 4321-2, 17503-11 ####[facility] CENTERAIME [id number] [place] [address] [place] Basic metabolic 2000 panelon 06-30-2024 Anion gap [Moles/Vol] 8 mmol/L Normal 8-15 [facility] Comment on above: Order Comment: Speci men Type: BLOOD SPECIMENOrdering Facility: [facility] Address: [address] [place] [address] Performed By: #### 2 4321-2, 17503-11 ####[facility] CENTEREMILYA [id number] [place] [address] [place] Calcium [Mass/Vol] 9.4 mg/dL Normal 8.5-10.2 [facility] Comment on above: Order Comment: Speci men Type: BLOOD SPECIMENOrdering Facility: [facility] Address: [address] [place] [address] Performed By: #### 2 432-, 1750-09 ####[facility]ITALWGUERREROLIA [id number] [place] [address] [place] Chloride [Moles/Vol] 103 mmol/L Normal 98-107 [facility] Comment on above: Order Comment: Speci men Type: BLOOD SPECIMENOrdering Facility: [facility] Address: [address] [place] [address] Performed By: #### 2 43203-06, 1750-09 ####[facility] HOSPITALLIA [id number] [place] [address] [place] CO2 [Moles/Vol] 27 mmol/L Normal 22-30 [facility] Comment on above: Order Comment: Speci men Type: BLOOD SPECIMENOrdering Facility: [facility] Address: [address] [place] [address] Performed By: #### 2 43203-06, 1750-09 ####[facility] HOSPITALLIA [id number] [place] [address] [place] Creatinine [Mass/Vol] 0.52 mg/dL Low 0.58-0.96 [facility] Comment on above: Order Comment: Speci men Type: BLOOD SPECIMENOrdering Facility: [facility] Address: [address] [place] [address] Performed By: #### 2 43203-06, 1750-09 ####[facility] HOSPITALLIA [id number] [place] [address] [place] Creatinine and Glomerular filtration rate.predicted panel (S/P/Bld) 97 mL/min/1.73m??? Normal >=60 [facility] Comment on above: Order Comment: Elisabeth colmenares Type: BLOOD SPECIMENOrdering Facility: [facility] Address: [address] [place] [address] Result Comment: Bethany mated Glomerular Filtration Rate (eGFR) is calculated using the 2020 CKD-EPI creatinine equation. This equation utilizes serum creatinine, sex, and age as parameters. The creatinine assay has traceable calibration to isotope dilution-mass spectrometry. Refer to KDIGO guidelines for clinical interpretation. In patients with unstable renal function, e.g. those with acute kidney injury, the eGFR may not accurately reflect actual GFR. Performed By: #### 2 4321-2, 1750-7 ####[facility] ER [id number] [place] [address] [place] Glucose [Mass/Vol] 104 mg/dL High 74-99 [facility] Comment on above: Order Comment: Elisabeth colmenares Type: BLOOD SPECIMENOrdering Facility: [facility] Address: [address] [place] [address] Result Comment: The [place] Diabetes Association (ADA) provides guidance for cutoff values for fasting glucose and random glucose. The ADA defines fasting as no caloric intake for at least 8 hours. Fasting plasma glucose results between 100 to 125 mg/dL indicate increased risk for diabetes (prediabetes). Fasting plasma glucose results greater than or equal to 126 mg/dL meet the criteria for diagnosis of diabetes. In the absence of unequivocal hyperglycemia, results should be confirmed by repeat testing. In a patient with classic symptoms of hyperglycemia or hyperglycemic crisis, random plasma glucose results greater than or equal to 200 mg/dL meet the criteria for diagnosis of diabetes. Reference: Standards of Medical Care in Diabetes 2016, [place] [employer] Association. Diabetes Care. 2016.39(Suppl 1). Performed By: #### 2 4321-2, 1750- ####[facility]ITALA [id number] [place] [address] [place] Potassium [Moles/Vol] 4.3 mmol/L Normal 3.7-5.1 [facility] Comment on above: Order Comment: Speci men Type: BLOOD SPECIMENOrdering Facility: [facility] Address: [address] [place] [address] Performed By: #### 2 4321-2, 17503-11 ####[facility]ENTERAIME [id number] [place] [address] [place] Sodium [Moles/Vol] 138 mmol/L Normal 136-144 [facility] Comment on above: Order Comment: Speci men Type: BLOOD SPECIMENOrdering Facility: [facility] Address: [address] [place] [address] Performed By: #### 2 4321-2, 17503-11 ####[facility] CENTERGUERREROSEVIER VAL[facility] [id number] [place] [address] [place] Urea nitrogen [Mass/Vol] 12 mg/dL Normal 7-21 [facility] Comment on above: Order Comment: Speci men Type: BLOOD SPECIMENOrdering Facility: [facility] Address: [address] [place] [address] Performed By: #### 2 4321-2, 1750-09 ####[facility]PITALA [id number] [address] [place] CBC W Auto Differential pane l (Bld)on 06-30-2024 Basophils (Bld) [#/Vol] 0.03 10*3/uL Normal <0.11 [facility] Comment on above: Order Comment: Speci men Type: BLOOD SPECIMENOrdering Facility: [facility] Address: [address] [place] [address] Performed By: #### 5 7021-8 ####[facility] ER [id number] [address] [place] Basophils/100 WBC (Bld) 0.9 % Normal [facility] Comment on above: Order Comment: Speci men Type: BLOOD SPECIMENOrdering Facility: [facility] Address: [address] [place] [address] Performed By: #### 5 7021-8 ####[facility] MILLWNCLIA [id number] [place] [address] [place] Differential cell count method Nom (Bld) Auto Normal [facility] Comment on above: Order Comment: Speci men Type: BLOOD SPECIMENOrdering Facility: [facility] Address: [address] [place] [address] Performed By: #### 5 7021-8 ####[facility] CENTERGUERREROLIA [id number] [place] [address] [place] Eosinophils (Bld) [#/Vol] 0.14 10*3/uL Normal <0.46 [facility] Comment on above: Order Comment: Speci men Type: BLOOD SPECIMENOrdering Facility: [facility] Address: [address] [place] [address] Performed By: #### 5 7021-8 ####[facility] HOSPITALLIA [id number] [place] [address] [place] Eosinophils/100 WBC (Bld) 4.2 % Normal [facility] Comment on above: Order Comment: Speci men Type: BLOOD SPECIMENOrdering Facility: [facility] Address: [address] [place] [address] Performed By: #### 5 7021-8 ####[facility] CENTERGUERREROLIA [id number] [place] [address] [place] Erythrocyte distribution width (RBC) [Ratio] 12.5 % Normal 11.5-15.0 [facility] Comment on above: Order Comment: Speci men Type: BLOOD SPECIMENOrdering Facility: [facility] Address: [address] [place] [address] Performed By: #### 5 7021-8 ####[facility] CENTERNCLIA [id number] [place] [address] [place] Hematocrit (Bld) [Volume fraction] 43.7 % Normal 36.0-46.0 [facility] Comment on above: Order Comment: Speci men Type: BLOOD SPECIMENOrdering Facility: [facility] Address: [address] [place] [address] Performed By: #### 5 7021-8 ####[facility] ER [id number] [place] [address] [place] Hemoglobin (Bld) [Mass/Vol] 14.6 g/dL Normal 11.5-15.5 [facility] Comment on above: Order Comment: Speci men Type: BLOOD SPECIMENOrdering Facility: [facility] Address: [address] [place] [address] Performed By: #### 5 7021-8 ####[facility] ER [id number] [place] [address] [place] Immature granulocytes (Bld) [#/Vol] 10*3/uL Normal <0.10 [facility] Comment on above: Order Comment: Speci men Type: BLOOD SPECIMENOrdering Facility: [facility] Address: [address] [place] [address] Performed By: #### 5 7021-8 ####[facility] ER [id number] [place] [address] [place] Immature granulocytes/100 WBC (Bld) 0.0 % Normal [facility] Comment on above: Order Comment: Speci men Type: BLOOD SPECIMENOrdering Facility: [facility] Address: [address] [place] [address] Performed By: #### 5 7021-8 ####[facility] ER [id number] [place] [address] [place] Lymphocytes (Bld) [#/Vol] 0.96 10*3/uL Low 1.00-4.00 [facility] Comment on above: Order Comment: Speci men Type: BLOOD SPECIMENOrdering Facility: [facility] Address: [address] [place] [address] Performed By: #### 5 7021-8 ####[facility] COLINARIEL [id number] [place] [address] [place] Lymphocytes/100 WBC (Bld) 28.6 % Normal [facility] Comment on above: Order Comment: Speci men Type: BLOOD SPECIMENOrdering Facility: [facility] Address: [address] [place] [address] Performed By: #### 5 7021-8 ####[facility] CENTERNCCOLE [id number] [place] [address] [place] MCH (RBC) [Entitic mass] 31.9 pg Normal 26.0-34.0 [facility] Comment on above: Order Comment: Speci men Type: BLOOD SPECIMENOrdering Facility: [facility] Address: [address] [place] [address] Performed By: #### 5 7021-8 ####[facility] CENTERNCCOLE [id number] [place] [address] [place] MCHC (RBC) [Mass/Vol] 33.4 g/dL Normal 30.5-36.0 [facility] Comment on above: Order Comment: Speci men Type: BLOOD SPECIMENOrdering Facility: [facility] Address: [address] [place] [address] Performed By: #### 5 7021-8 ####[facility] CENTERNCLI [id number] [place] [address] [place] MCV (RBC) [Entitic vol] 95.4 fL Normal 80.0-100.0 [facility] Comment on above: Order Comment: Speci men Type: BLOOD SPECIMENOrdering Facility: [facility] Address: [address] [place] [address] Performed By: #### 5 7021-8 ####[facility] MILLWNCLIA [id number] [place] [address] [place] Monocytes (Bld) [#/Vol] 0.35 10*3/uL Normal <0.87 [facility] Comment on above: Order Comment: Speci men Type: BLOOD SPECIMENOrdering Facility: [facility] Address: [address] [place] [address] Performed By: #### 5 7021-8 ####[facility] HOSPITALLIA [id number] [place] [address] [place] Monocytes/100 WBC (Bld) 10.4 % Normal [facility] Comment on above: Order Comment: Speci men Type: BLOOD SPECIMENOrdering Facility: [facility] Address: [address] [place] [address] Performed By: #### 5 7021-8 ####[facility]OSPITALLIA [id number] [place] [address] [place] Neutrophils (Bld) [#/Vol] 1.88 10*3/uL Normal 1.45-7.50 [facility] Comment on above: Order Comment: Speci men Type: BLOOD SPECIMENOrdering Facility: [facility] Address: [address] [place] [address] Performed By: #### 5 7021-8 ####[facility]OSPITALLIA [id number] [place] [address] [place] Neutrophils/100 WBC (Bld) 55.9 % Normal [facility] Comment on above: Order Comment: Speci men Type: BLOOD SPECIMENOrdering Facility: [facility] Address: [address] [place] [address] Performed By: #### 5 7021-8 ####[facility] CENTERNCLIA [id number] [place] [address] [place] Nucleated RBC (Bld) [#/Vol] 10*3/uL Normal <0.01 [facility] Comment on above: Order Comment: Speci men Type: BLOOD SPECIMENOrdering Facility: [facility] Address: [address] [place] [address] Performed By: #### 5 7021-8 ####[facility] CENTERNCA [id number] [place] [address] [place] Nucleated RBC/100 WBC (Bld) [Ratio] 0.0 /100 WBC Normal [facility] Comment on above: Order Comment: Speci men Type: BLOOD SPECIMENOrdering Facility: [facility] Address: [address] [place] [address] Performed By: #### 5 7021-8 ####[facility] ER [id number] [place] [address] [place] Platelet mean volume (Bld) [Entitic vol] 10.7 fL Normal 9.0-12.7 [facility] Comment on above: Order Comment: Speci men Type: BLOOD SPECIMENOrdering Facility: [facility] Address: [address] [place] [address] Performed By: #### 5 7021-8 ####[facility] ER [id number] [place] [address] [place] Platelets (Bld) [#/Vol] 149 10*3/uL Low 150-400 [facility] Comment on above: Order Comment: Speci men Type: BLOOD SPECIMENOrdering Facility: [facility] Address: [address] [place] [address] Performed By: #### 5 7021-8 ####[facility]ITALA [id number] [place] [address] [place] RBC (Bld) [#/Vol] 4.58 10*6/uL Normal 3.90-5.[address] [facility] Comment on above: Order Comment: Speci men Type: BLOOD SPECIMENOrdering Facility: [facility] Address: [address] [place] [address] Performed By: #### 5 7021-8 ####[facility] CENTERJERMAINE SHAWNancyNCCOLE [id number] [place] [address] [place] WBC (Bld) [#/Vol] 3.36 10*3/uL Low 3.70-11.[address] [facility] Comment on above: Order Comment: Speci men Type: BLOOD SPECIMENOrdering Facility: [facility] Address: [address] [place] [address] Performed By: #### 5 7021-8 ####[facility] CENTERNCLISuzie [id number] [place] [address] [place] CONFIRM BLOOD TYPEon 025 ABO O Normal [facility] Comment on above: Order Comment: Speci men Type: BLOOD SPECIMENOrdering Facility: [facility] Address: [address] [place] [address] Performed By: #### C ONABO ####[facility] BLOOD BANKCLIA [id number] [place] [address] [place] Rh Nom (Bld) Positive Normal [facility] Comment on above: Order Comment: Speci men Type: BLOOD SPECIMENOrdering Facility: [facility] Address: [address] [place] [address] Performed By: #### C ONABO ####[facility] BLOOD BANKCLIA [id number] [place] [address] [place] Ferritin SerPl-mCncon 2024 Ferritin [Mass/Vol] 182.0 ng/mL Normal 14.7-205.1 [facility] Comment on above: Order Comment: Speci men Type: BLOOD SPECIMENOrdering Facility: [facility] Address: [address] [place] [address] Performed By: #### 2 276-4, 55870-9 ####[facility] LABCLIA [id number] [place] [address] [place] HISTORY PHYSICALon HISTORY PHYSICAL HNO ID: [id number] Author: ILIANA ELLIS APRN.OVEN BAKER Service: ? Author Type: Nurse Practitioner Type: H&P Filed: 06/30/2024 13:15 Note Text: [facility] HISTORY AND PHYSICAL EXAMINATION SERVICE DATE: 06/30/2024 SERVICE TIME: 1:15 PM PRIMARY CARE PHYSICIAN: Silvestre Chance DO Assessment Patient has the following medical conditions which may affect veronica-operative course: CAD (coronary artery disease) Assessment: denies any new or worsening cardiac symptoms. S/p CABG in setting of NSTEMI 2015, pt refuses ASA therapy, states blood is thin enough with turmeric and fish oil. She c/w BB. 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 Normal stress 11/2022 and echo 03/2022 Hyperlipidemia Assessment: taking supplement PAF (paroxysmal atrial fibrillation) (HCC) Assessment: remote hx, post-op CABG, no AC Former smoker Assessment: 1ppd/10 years, denies asthma or COPD Multinodular goiter Assessment: FNA completed, no further work up needed, denies compressive symptoms S/P total knee arthroplasty, right Assessment: hx Chronic bilateral low back pain Assessment: otc analgesics as needed BMI 37.0-37.9, adult Assessment: Body mass index is 37.04 kg/m?. ANESTHESIA FINDINGS: Intubation History: No history of difficult intubation Significant Anesthesia Considerations: none Airway History: No history of difficult airway Cunningham Activity Status Index: METS: Walk indoors, such as around the house (1.75 METs) Do light work around the house, such as dusting or washing dishes (2.70 METs) Take care of self; that is eating, dressing, bathing, using the toilet (2.75 METs) Walk a block or two on level ground (2.75 METs) DASI Score: 9.95 (With cane) Patient denies any chest pain or undue shortness of breath with the above physical activity. Clinical Frailty Scale: 3. Well, with treated comorbid disease STOP-Bang Score: Snores loudly Has or is being treated for high blood pressure BMI greater than 35 kg/m2 Patient over 50 years old Has a large neck Denies feeling tired, fatigued, or sleepy during the daytime Has not been observed to stop breathing or choking/gasping during sleep Non-male patient STOP-Bang Score: 5 [id number] Score: Age: 65-74 Sex: female CHF history: Yes Hypertension history: No Stroke/TIA/thromboembol ism history: No Vascular disease history: Yes Diabetes history: No [id number]-FAOf Score: 4 ARISCAT Score: Age: 51-80 Preoperative SpO2: >=96% Respiratory infection in the last month: No Preoperative anemia: No Surgical incision: peripheral Duration of surgery: >3 hrs Emergency procedure: No ARISCAT Score: 26 I - PHYSICAL EVALUATION AIRWAY Patient intubated: No. Tracheostomy tube not present Mallampati: II. TM distance: >3 FB. Neck ROM: full ROM without neurological symptoms. Mouth opening: adequate. Short neck: no. Thick neck: yes Vee present: no Lip Bite Test: I Microretrognathia/Micro nagthia/Recessed Chin: No DENTAL Dental findings: teeth intact. II - ANESTHESIA PLAN Anesthetic Plan: other Anesthetic plan additional comments: *PACC/TCI - anesthesia choice. Beta Reina Monitoring Plan Post Procedure Analgesic Plan Prepared for Surgery: optimally prepared for surgery. Labs-reviewed, okay to proceed-JL CONSULTS: Patient does not require consults for optimization at this time Planned Anesthetic: other anesthesia choice The Following Tests/Procedures Have Been Initiated: Orders Placed This Encounter mupirocin (BACTROBAN) 2 % ointment Sig: Apply 0.5 inch with cotton swab (Q-tip) to each nostril in the morning and evening for 5 days prior to and including day of surgery. Dispense: 22 g Refill: 0 REASON FOR VISIT: Moira Suh is a 74 year old female who is scheduled for Procedure(s): SARAH ROBOTIC ASSISTED TOTAL KNEE ARTHROPLASTY (Left) at the request of Eren Rosas DO for consultation. My final recommendation will be communicated back to the requesting physician by way of shared medical record or letter. Subjective The patient has the following: COVID-19 Immunization Status Upcoming Covid-19 Vaccine ( season) Postponed until 01/01/2025 01/02/2024 Postponed until 01/01/2025 by Hafsa Peace LPN (Declined at this time) 02/04/2021 Imm Admin: COVID-19 original vaccine, age 12+ yr, monovalent (PFIZER-BIONTECH - PURPLE TOP) 05/10/2020 Imm Admin: COVID-19 original vaccine, age 12+ yr, monovalent (PFIZER-BIONTECH - PURPLE TOP) Only the first 3 history entries have been loaded, but more history exists. CHIEF COMPLAINT: Pre-op exam HPI: Moira Suh is a 72 year old seen for PAC due to scheduled above surgery because of OA left knee. 04/03/2024, Dr. Coyle Moira Suh is a 74 year old patient with the presenting complaint of Knee Pain of the L (more content not included)... Normal [facility] Iron and Iron binding capaci ty panelon 06-30-2024 Iron [Mass/Vol] 137 ug/dL Normal 41-186 [facility] Comment on above: Order Comment: Elisabeth colmenares Type: BLOOD SPECIMENOrdering Facility: [facility] Address: [address] [place] [address] Performed By: #### 2 276-4, 35022-0 ####[facility] LABIA [id number] [address] [address] [place] Iron binding capacity [Mass/Vol] 299 ug/dL Normal 232-386 [facility] Comment on above: Order Comment: Kerii dedra Type: BLOOD SPECIMENOrdering Facility: [facility] Address: [address] [place] [id number] Performed By: #### 2 276-4, 46549-8 ####[facility] LABCLIA [id number] [address] [address] [place] Iron/TIBC [Molar ratio] 45.8 % Normal 15.0-57.0 [facility] Comment on above: Order Comment: Kerii men Type: BLOOD SPECIMENOrdering Facility: [facility] Address: [address] [place] [address] Performed By: #### 2 276-4, 62795-5 ####[facility] LABCLIA [id number] [place] [address] [facility] [place] TYPE AND SCREEN,30 DAYon ABO O Normal [facility] Comment on above: Order Comment: Speci men Type: BLOOD SPECIMENOrdering Facility: [facility] Address: [address] [place] [address] Performed By: #### T SCR30 ####[facility] BLOOD BANKCLIA [id number] [place] [address] [place] Rh Nom (Bld) Positive Normal [facility] Comment on above: Order Comment: Speci men Type: BLOOD SPECIMENOrdering Facility: [facility] Address: [address] [place] [address] Performed By: #### T SCR30 ####[facility] BLOOD BANKCLIA [id number] [address] [place] CNOVon 06-10-2024 CNOV Office Visit (OMMS) VIKASHMOIRA ([id number]) 1950 F Date Time Provider Department 06/10/24 1:45 PM DYLAN LIANG OMMS During your visit today, we recorded the following information about you: Temperature Pulse Blood pressure Weight 97.7 degrees 76/minute 185/101 102.2 kg Darline Ferrer DO 06/17/2024 2:14 PM Signed Osteopathic Neuromusculoskeletal Medicine Outpatient Progress Note Name: Moira Suh Date of : 1950 Date of Exam: June 10, 2024 Silvestre Chance DO is the PCP for this patient. I am seeing this patient for neuromusculoskeletal evaluation and if indicated, osteopathic manipulative treatment, and am returning the patient to Silvestre Chance DO for primary care. CC: This is Moira Suh, a 74 year old female who presents with left knee pain and left lower back pain History of Present Illness: Last OV: 04/11/2024 Response to previous treatment: Helps Looking forward to her left knee being replaced soon. Has done her pre PT for it. Standing/walking for long periods has discomfort in her back. Last week spent two hours standing on concrete, has some pain going down the left leg. Pain going down the left side has been going on since her left knee is getting worse. Past Medical History: PAST MEDICAL HISTORY Diagnosis Date Atrial fibrillation (HCC) Coronary artery disease Holter monitor, abnormal extra beats Hypercholesteremia Hyperlipidemia Hypertension Insulin resistance 07/19/2017 Leiomyoma of uterus, unspecified Low HDL (under 40) Past Surgical History: PAST SURGICAL HISTORY Procedure Laterality Date CORONARY ARTERY BYPASS GRAFT HX 2015 3 vessel FNA WITH IMAGING 11/27/2012 U/S FNA bilateral thyroid PAST SURGICAL HISTORY OF age 28 1 ovary removed, 1 tube reconstructed from ectopic PAST SURGICAL HISTORY OF age 20 tendon repairs to wrists after going through glass door PAST SURGICAL HISTORY OF removal of uterine polyp TOTAL KNEE REPLACEMENT Right 01/02/2023 Family History: FAMILY HISTORY Problem Relation Age of Onset Thyroid Mother Hypertension Mother Prostate Cancer Father Thyroid Sister Social History: Moira Suh reports that she has quit smoking. Her smoking use included cigarettes. She has a 10 pack-year smoking history. She has never used smokeless tobacco. She reports current alcohol use. She reports that she does not use drugs. Employer And Job Title: None on file Years Of Education Completed: Not specified Marital Status: Medications/Supplements : Reviewed ` Allergies: Reviewed Review of Systems: Review of Systems sheet reviewed and discussed with patient. Physical Exam: VITALS: BP 185/101[Patient states she sees a hat band attacher[ Pulse 76 Temp (Src) 97.7 (Temporal) Wt 225 lb 5 oz (102.2kg) Body mass index is 37.49 kg/m?. Constitutional: awake and alert, in no acute distress HEENT: normocephalic, atraumatic Neck: supple, normal range of motion, no midline or muscular tenderness Cardio: no peripheral edema Pulmonary: normal effort, in no acute respiratory distress Abdomen: soft, nondistended Neurologic: at neurologic baseline Psychiatric: normal mood and affect, cooperative, normal speech MSK: Bilateral knee varus, left foot tenderness to plantar surface, reduced extension of lumbar spine. Assessment and Plan: Encounter Diagnosis ICD-10-CM 1. Chronic pain of left knee M25.562 G89.29 2. Chronic left-sided low back pain without sciatica M54.50 Osteopathic manipulative treatment (OMT) G89.29 3. Somatic dysfunction of head region M99.00 Osteopathic manipulative treatment (OMT) 4. Somatic dysfunction of spine, lumbar M99.03 Osteopathic manipulative treatment (OMT) 5. Somatic dysfunction of pelvis region M99.05 Osteopathic manipulative treatment (OMT) 6. Somatic dysfunction of lower extremity M99.06 Osteopathic manipulative treatment (OMT) 7. Somatic dysfunction of sacral spine M99.04 Osteopathic manipulative treatment (OMT) 8. Somatic dysfunction of abdominal region M99.09 Osteopathic manipulative treatment (OMT) 9. Somatic dysfunction of rib M99.08 Osteopathic manipulative treatment (OMT) 10. Cervical (neck) region somatic dysfunction M99.01 Moira Suh, a 74 year old female chronic right knee pain s/p knee replacement Dec 2022 who presents for follow-up on chronic left knee pain and lower back pain. She is having her left knee replaced next month. She does have lower back pain as well, we discussed today to see how her lower back is doing after she recovers from her knee surgery as having better gait mechanics could help reduce her lower back pain along when. She is not interested in intervention such as surgery or injections to her lower back. Discussed that unless she has new symptoms down the road in her back we could (more content not included)... Normal [facility] Osteopathic manipulative zacarias atment (OMT)on 06-10-2024 Darline Ferrer DO 06/17/2024 2:14 PM Osteopathic manipulative treatment (OMT) Time/Date:06/10/2024 2:33 PM Informed Consent Consent Obtained: Verbal [place] Protocol A moment to CARE was completed. SIGN IN Special Equipment: N/A Patient/Surrogate Stated/Verified: Patient name and Date of TIME OUT Consent Obtained:Verbal Body Regions: Head, Sacrum, Pelvis, Abdomen, Ribs, Lumbar, Lower Extremities and Cervical Head Technique: OA extended treated with Balanced ligamentous tension and cranial Cervical Technique: Anterior cervical fascia restricted treated with Facilitated positional release and Myofascial release Ribs Technique: Right ribs 8-10 exhaled treated with Myofascial release Lumbar Technique: L2 ERSR treated with muscle energy Sacrum Technique: Right sacral base posterior treated with Facilitated positional release Pelvis Technique: Left posterior inomminate treated with paz percussion Abdomen Technique: Abdominal diaphragm flattened treated with Myofascial release Lower Extremities Technique:Left hamstring and quadriceps restrictions treated with paz percussion Number of Body Regions: 7- 8 Disposition: Osteopathic manipulation tolerated well, reports subjective and objective improvement, improvement in range of motion and mechanics, instructed to increase hydration for the next 24 hours and instructed to follow up if symptoms worsen or fail to improve [facility] CNOVon 06-06-2024 CNOV Office Visit (TIFFANIE ) MOIRA SUH ([id number]) 1950 F Date Time Provider Department 06/06/24 10:30 AM AMBER NASH During your visit today, we recorded the following information about you: Pulse Blood pressure Weight Height 70/minute 132/76 101.9 kg 1.651 m Amber Nash APRN.CNP 06/06/2024 2:00 PM Signed [facility] [place] [facility] Department of Cardiovascular Medicine SECTION OF CLINICAL CARDIOLOGY OUTPATIENT VISIT DATE June 06, 2024 OUTPATIENT VISIT TYPE ESTABLISHED PRIMARY CARE PHYSICIAN: Silvestre Chance [address] [place] [address] REFERRING PHYSICIAN: No referring provider defined for this encounter. CHIEF COMPLAINT: Cardiology Follow Up (LKR scheduled 07/21/2024 @ [facility] ) HISTORY OF PRESENT ILLNESS: Ms. Suh is a 74 year old female with PMh of CAD/CABG x 3 ( LLANOS-LAD, SVG-LCX, SVG-RCA), hyperlipidemia, elevated LP(a), vitamin D deficiency, who presents today for a cardiovascular medicine follow-up visit as she has not been seen for a year and a half in this clinic.. She is due to have knee surgery next month. She wanted to just make sure that she had a cardiology appointment before that. Her last knee surgery on her right knee was a year and a half ago. That did not heal well. This time is going to be on her left knee. She has no ischemic symptoms, no symptoms or signs of fluid overload. Has not had any issues since her bypass surgery 2016. She denies shortness of breath, chest pain, palpitations, dizziness, lightheadedness, lower extremity edema, PND, orthopnea, presyncope, syncope, or claudication symptoms Subjective PAST MEDICAL HISTORY Diagnosis Date Atrial fibrillation (HCC) Coronary artery disease Holter monitor, abnormal extra beats Hypercholesteremia Hyperlipidemia Hypertension Insulin resistance 07/19/2017 Leiomyoma of uterus, unspecified Low HDL (under 40) PAST SURGICAL HISTORY Procedure Laterality Date CORONARY ARTERY BYPASS GRAFT HX 2016 3 vessel FNA WITH IMAGING 11/27/2012 U/S FNA bilateral thyroid PAST SURGICAL HISTORY OF age 28 1 ovary removed, 1 tube reconstructed from ectopic PAST SURGICAL HISTORY OF age 20 tendon repairs to wrists after going through glass door PAST SURGICAL HISTORY OF removal of uterine polyp TOTAL KNEE REPLACEMENT Right 01/02/2023 Social History Tobacco Use Smoking status: Former Current packs/day: 1.00 Average packs/day: 1 pack/day for 10.0 years (10.0 ttl pk-yrs) Types: Cigarettes Smokeless tobacco: Never Vaping Use Vaping status: Never Used Substance Use Topics Alcohol use: Yes Comment: socially Drug use: No FAMILY HISTORY Problem Relation Age of Onset Thyroid Mother Hypertension Mother Prostate Cancer Father Thyroid Sister ALLERGIES: ALLERGIES Allergen Reactions Atorvastatin Calcium Myalgia Caused severe myalgias to bilateral thighs and across back Codeine Mental Status Change Can hear whats going on around her but she can't wake up Crestor [Rosuvastat* Myalgia 20 mg caused severe myalgias to upper thighs and across back MEDICATIONS: OTC PRODUCT Black Seed Oil - Capsules OTC PRODUCT Lion's Seb MEDICATION, NON-DATABASE Medical Marijuana Cream metoprolol succinate ER (TOPROL XL) 25 mg 24 hr tablet Take 1 tablet by mouth once daily. plvsqre-ysom-aceyu-oreg -capryl 100 mg-150 mg- 50 mg-150 mg cap Take 1 tablet by mouth twice daily. OmegaGenics EPA-DHA 2400 (High Concentrate EPA/DHA liquid) (LearnSomething) Take one teaspoon (5 ml) 1 times daily with food MAGNESIUM ORAL Take 135 Units by mouth once daily. Takes 4 capsules daily ascorbic acid, vitamin C, (VITAMIN C) 500 mg tablet Take 2,000 mg by mouth once daily. B-Complex Plus (Pure Encapsulations) - 1qD stress/energy/hormones/ detox/weight loss Take 1 capsule by mouth once daily. CoQ10, Liposomal Ubiquinol, 200 mg cap Take 1 capsule by mouth daily with food. cholecalciferol (VITAMIN D3) 1,000 unit tab tablet Take 1,000 Units by mouth once daily. REVIEW OF SYSTEMS: CARD: See HPI GENERAL: Negative for: Weight loss or gain, Fever and/or Chills HEENT: Negative for: Headache, Impaired Vision, Glasses, Hearing Impairment, Ringing in Ears, Nosebleeds, Bleeding Gums NECK: Negative for: Swelling, Pain, Stiffness RESPIRATORY: Negative for: Cough, Blood in Sputum, Shortness of breath, Wheezing, Apnea GASTROINTESTINAL: Negative for: Nausea, Vomiting, Diarrhea, Blood in stool, or Dark black stools MUSCULOSKELETAL: Negative for: Muscle or joint pain, Stiffness , Joint swelling NEUROLOGIC: Negative for: focal numbness/weakness, headaches, visual changes, ataxia, speech/language loss HEMATOLOGICAL/LYMPHATIC : Negative for: Easy bruising , Easy bleeding Objective PHYSICAL EXAMINATION: BP 132/76 Pu (more content not included)... Normal [facility] NHL23ea 06-06-2024 ECG01 Ventricular Rate : 7 0 BPM Atrial Rate : 70 BPM P-R Interval : 150 ms QRS Duration : 72 ms Q-T Interval : 394 ms QTC Calculation(Bazett) : 425 ms Calculated P [place] : 32 degrees Calculated R [place] : 4 degrees Calculated T [place] : 26 degrees NORMAL SINUS RHYTHM NORMAL ECG Confirmed by MD KRYSTINA, ALICIA ([id number]) on 06/10/2024 6:46:15 PM NAME : MOIRA SUH PID : [id number] : 1950 Gender : Female Race : ORD : Procedure Date : Jun 06 2024 10:58:14 Edit Date : Jun 10 2024 18:46:18 Diagnosis: NORMAL SINUS RHYTHM NORMAL ECG Confirmed by MD FLAHERTY QARAB ([id number]) on 06/10/2024 6:46:15 PM Test Reason : Location : 211 : MECARD Overread By : MD FLAHERTY QARAB Edited By : MD FLAHERTY QARAB Referred By : AMBER NASH Acquired by : Sachi SMILEY [facility] CNTHERAPYon 05-27-2024 CNTHERAPY OT/PT/Speech Visit (SPTBR) MOIRA SUH ([id number]) 1950 F Date Time Provider Department 05/27/24 3:45 PM АННА PEREZ SPTBR Date Time Provider Department Center 05/27/2024 3:45 PM [id number], MCKENA SPTBR [facility] Reason for Visit: PT Discharge [752] Primary Visit Diagnosis:Chronic bilateral low back pain without sciatica [M54.50, G89.29] Other Visit Diagnoses:Aftercare following right knee joint replacement surgery [Z47.1, Z96.651] Chronic pain of right knee [M25.561, G89.29] Allergies As of Date: 05/27/2024 Noted Allergy Reaction ATORVASTATIN CALCIUM 02/15/2016 17 - Myalgia Comments: Caused severe myalgias to bilateral thighs and across back CODEINE 12/27/2007 1 - Mental Status Change Comments: Can hear whats going on around her but she can't wake up CRESTOR (ROSUVASTATIN CALCIUM) 02/15/2016 17 - Myalgia Comments: 20 mg caused severe myalgias to upper thighs and across back Date Reviewed: 04/11/2024 Reviewed by: Rosalind Stevens MA - Fully Assessed Prescriptions as of 05/27/2024 - MEDICATION, NON-DATABASE Medical Marijuana Cream - metoprolol succinate ER (TOPROL XL) 25 mg 24 hr tablet Take 1 tablet by mouth once daily. - wnzfire-cuji-zukjb-oreg -capryl 100 mg-150 mg- 50 mg-150 mg cap Take 1 tablet by mouth twice daily. - OmegaGenics EPA-DHA 2400 (High Concentrate EPA/DHA liquid) (LearnSomething) Take one teaspoon (5 ml) 1 times daily with food - MAGNESIUM ORAL Take 135 Units by mouth once daily. Takes 4 capsules daily - ascorbic acid, vitamin C, (VITAMIN C) 500 mg tablet Take 2,000 mg by mouth once daily. - B-Complex Plus (Pure Encapsulations) - 1qD stress/energy/hormones/ detox/weight loss Take 1 capsule by mouth once daily. - CoQ10, Liposomal Ubiquinol, 200 mg cap Take 1 capsule by mouth daily with food. - cholecalciferol (VITAMIN D3) 1,000 unit tab tablet Take 1,000 Units by mouth once daily. Meds Comments as of 01/05/2023: Current per pt.09/28/15 11.2.23 - patient reports she was told that it is now okay to resume taking all supplements/meds. Project Management Specialist: Therapy (PT/OT/Speech/Resp) ID: [id number] 05/27/2024 4:30 PM Author: АННА PEREZ Signed by АННА PEREZ PT, DPT on 05/27/2024 at 4:30 PM Document text: Program_ID:[id number] Access Code: [email or web address] URL: [email or web address] Date: 05-27-2024 Prepared By: Rikki Tomas Program Notes Exercises - Seated 3 Way Exercise Ball Roll Out Stretch - 1 x daily - 7 x weekly - 3 sets - 10 reps - Staggered Ihp-ji-Zbbyl - 1 x daily - 7 x weekly - 3 sets - 10 reps - Standing Terminal Knee Extension with Resistance - 1 x daily - 7 x weekly - 3 sets - 10 reps - Supine Active Straight Leg Raise - 1 x daily - 7 x weekly - 3 sets - 10 reps - Sidelying Hip Abduction - 1 x daily - 7 x weekly - 3 sets - 10 reps - Quadricep Stretch with Chair and Counter Support - 1 x daily - 7 x weekly - 3 sets - 1 reps - Clamshell with Resistance - 1 x daily - 7 x weekly - 3 sets - 10 reps - Supine 90/90 Alternating Toe Touch - 1 x daily - 7 x weekly - 3 sets - 10 reps Normal [facility] THERAPY NTon 05-27-2024 THERAPY NT HNO ID: [id number] Author: АННА PEREZ, PT, DPT Service: ? Author Type: Physical Therapist Type: Therapy (PT/OT/Speech/Resp) Filed: 05/27/2024 16:30 Note Text: Program_ID:[id number] Access Code: [email or web address] URL: [email or web address]/ Date: 05-27-2024 Prepared By: Rikki Tomas Program Notes Exercises - Seated 3 Way Exercise Ball Roll Out Stretch - 1 x daily - 7 x weekly - 3 sets - 10 reps - Staggered Yns-fb-Zbdhk - 1 x daily - 7 x weekly - 3 sets - 10 reps - Standing Terminal Knee Extension with Resistance - 1 x daily - 7 x weekly - 3 sets - 10 reps - Supine Active Straight Leg Raise - 1 x daily - 7 x weekly - 3 sets - 10 reps - Sidelying Hip Abduction - 1 x daily - 7 x weekly - 3 sets - 10 reps - Quadricep Stretch with Chair and Counter Support - 1 x daily - 7 x weekly - 3 sets - 1 reps - Clamshell with Resistance - 1 x daily - 7 x weekly - 3 sets - 10 reps - Supine 90/90 Alternating Toe Touch - 1 x daily - 7 x weekly - 3 sets - 10 reps Normal [facility] CNPBibi 05-19-2024 CNPN Telephone ([facility]) MOIRA SUH ([id number]) 1950 F Date Time Provider Department 05/19/24 DANIELLE MART During your visit today, we recorded the following information about you: Adry Corley, RN 05/19/2024 4:20 PM Signed Pt called in inquiring if she will need to have any testing prior to her upcoming knee replacement. Pt left VM stating we can call or [employer] message her. Sent Beaker message KYRA: 03/23/2022 with HALEY Mart. OVEN BAKER PLAN AND RECOMMENDATIONS: 1. Palpitations - Described as pounding sensation - Sporadic increase in resting HR from 60 bpm to 80 bpm - Sporadic increase in HR with minimal exertion to low 100's - No associated symptoms - 3 day Zio event monitor - BMP, mag, TSH - Echocardiogram - Nuclear stress test 2. Coronary artery disease - Patient is s/p CABG x3 in setting of NSTEMI (LLANOS-LAD, SVG-LCx, and SVG-RCA) in 07/2015 - BOLANOS an angina at time of CABG - Patient appears compensated from cardiac standpoint - Continue ASA and BB as currently ordered - LDL above goal of <70 --> Intolerant to statins - Exercise MPI stress ordered at prior OV and pending completion - Resistant to aspirin therapy as she feels her blood is thin enough on tumeric and fish oil 3. Essential hypertension - Suboptimal control on metoprolol - Encouraged dietary sodium restriction/DASH diet - Reviewed risks of HTN and principles of treatment - Goal of BP <130/80 - Home BP log 4. Hyperlipidemia with history of LP(a) elevation - Currently on Niacin - Last lipid panel 03/2022 with LDL 133 and LP(a) 112 - Unable to tolerate statins due to severe myalgias - Will discuss PCSK9i at next OV 5. Postoperative atrial fibrillation - Documented AF postop CABG treated with amiodarone - Patient in NSR today - She reports suspected prior incidences of AF but none documented - [id number] score 4 (Age, gender, HTN, and vasc) - On no anticoagulation at this time given postoperative nature - Rate controlled on metoprolol Allergies As of Date: 05/19/2024 Noted Allergy Reaction ATORVASTATIN CALCIUM 02/15/2016 17 - Myalgia Comments: Caused severe myalgias to bilateral thighs and across back CODEINE 12/27/2007 1 - Mental Status Change Comments: Can hear whats going on around her but she can't wake up CRESTOR (ROSUVASTATIN CALCIUM) 02/15/2016 17 - Myalgia Comments: 20 mg caused severe myalgias to upper thighs and across back Date Reviewed: 04/11/2024 Reviewed by: Rosalind Stevens MA - Fully Assessed Prescriptions as of 05/19/2024 - MEDICATION, NON-DATABASE Medical Marijuana Cream - metoprolol succinate ER (TOPROL XL) 25 mg 24 hr tablet Take 1 tablet by mouth once daily. - lrszyai-ppbx-otfbs-oreg -capryl 100 mg-150 mg- 50 mg-150 mg cap Take 1 tablet by mouth twice daily. - OmegaGenics EPA-DHA 2400 (High Concentrate EPA/DHA liquid) (LearnSomething) Take one teaspoon (5 ml) 1 times daily with food - MAGNESIUM ORAL Take 135 Units by mouth once daily. Takes 4 capsules daily - ascorbic acid, vitamin C, (VITAMIN C) 500 mg tablet Take 2,000 mg by mouth once daily. - B-Complex Plus (Pure Encapsulations) - 1qD stress/energy/hormones/ detox/weight loss Take 1 capsule by mouth once daily. - CoQ10, Liposomal Ubiquinol, 200 mg cap Take 1 capsule by mouth daily with food. - cholecalciferol (VITAMIN D3) 1,000 unit tab tablet Take 1,000 Units by mouth once daily. Meds Comments as of 01/05/2023: Current per pt.09/28/15 11.2.23 - patient reports she was told that it is now okay to resume taking all supplements/meds. Problem List As Of Date 05/19/2024 Noted Resolved UTERINE LEIOMYOMA NOS [D25.9] 12/27/2007 MUCOUS POLYP OF CERVIX [N84.1] 12/27/2007 POSTMENOPAUSAL BLEEDING [N95.0] 12/27/2007 Low HDL (under 40) [E78.6] 10/07/2012 Hyperlipidemia [E78.5] 10/07/2012 Multinodular goiter [E04.2] 10/29/2012 CAD (coronary artery disease) [I25.10] 10/15/2015 H/O non-ST elevation myocardial infarction (NST*10/15/2015 S/P CABG x 3 (L-LAD, S-CX, S-RCA) 07/2015 [Z95.1]10/15/2015 Cardiomyopathy, ischemic [I25.5] 10/15/2015 03/11/2019 Moderate mitral regurgitation [I34.0] 10/15/2015 04/26/2016 Obesity [E66.9] 10/15/2015 04/12/2017 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] 04/12/2017 Dry skin [L85.3] 04/12/2017 Hair loss [L65.9] 04/12/2017 BMI 34.0-34.9,adult [Z68.34] 04/12/2017 Exposure to mercury [Z77.018] 04/12/2017 PAF (paroxysmal atrial fibrillation) (HCC) [I48*06/26/2017 Insulin resistance [E88.819] 07/19/2017 Vitamin D deficiency [E55.9] 09/13/2017 Former smoker [Z87.891] 12/21/2022 S/P total knee arthroplasty, right [Z96.651] 01/03/2023 Primary osteoarthritis of left knee [M17.12] 01/22/2023 Primary osteoarthritis of right knee [M17.11] 01/22/2023 Medicare annual wellness visit, subsequent [Z00*10/09/2023 Actinic keratosis [L57.0] 01/02/2024 Myalgia [M79.10] 01/02/2024 (more content not included)... Normal [facility] CNTHERAPYon 05-06-2024 CNTHERAPY OT/PT/Speech Visit (SPTBR) MOIRA SUH ([id number]) 1950 F Date Time Provider Department 05/06/24 4:30 PM DARRYNАННА LIZARRAGA SPTBR Date Time Provider Department Center 05/06/2024 4:30 PM [id number], MCGARIMA SPTBR [facility] Reason for Visit: Physical Therapy [503] Primary Visit Diagnosis:Chronic bilateral low back pain without sciatica [M54.50, G89.29] Other Visit Diagnoses:Aftercare following right knee joint replacement surgery [Z47.1, Z96.651] Chronic pain of right knee [M25.561, G89.29] Allergies As of Date: 05/06/2024 Noted Allergy Reaction ATORVASTATIN CALCIUM 02/15/2016 17 - Myalgia Comments: Caused severe myalgias to bilateral thighs and across back CODEINE 12/27/2007 1 - Mental Status Change Comments: Can hear whats going on around her but she can't wake up CRESTOR (ROSUVASTATIN CALCIUM) 02/15/2016 17 - Myalgia Comments: 20 mg caused severe myalgias to upper thighs and across back Date Reviewed: 04/11/2024 Reviewed by: Rosalind Stevens MA - Fully Assessed Prescriptions as of 05/06/2024 - MEDICATION, NON-DATABASE Medical Marijuana Cream - metoprolol succinate ER (TOPROL XL) 25 mg 24 hr tablet Take 1 tablet by mouth once daily. - uwwqmlw-umso-fgyor-oreg -capryl 100 mg-150 mg- 50 mg-150 mg cap Take 1 tablet by mouth twice daily. - OmegaGenics EPA-DHA 2400 (High Concentrate EPA/DHA liquid) (LearnSomething) Take one teaspoon (5 ml) 1 times daily with food - MAGNESIUM ORAL Take 135 Units by mouth once daily. Takes 4 capsules daily - ascorbic acid, vitamin C, (VITAMIN C) 500 mg tablet Take 2,000 mg by mouth once daily. - B-Complex Plus (Pure Encapsulations) - 1qD stress/energy/hormones/ detox/weight loss Take 1 capsule by mouth once daily. - CoQ10, Liposomal Ubiquinol, 200 mg cap Take 1 capsule by mouth daily with food. - cholecalciferol (VITAMIN D3) 1,000 unit tab tablet Take 1,000 Units by mouth once daily. Meds Comments as of 01/05/2023: Current per pt.09/28/15 11.2.23 - patient reports she was told that it is now okay to resume taking all supplements/meds. Project Management Specialist: Therapy (PT/OT/Speech/Resp) ID: [id number] 05/06/2024 5:08 PM Author: АННА PEREZ Signed by АННА PEREZ PT, DPT on 05/06/2024 at 5:08 PM Document text: Program_ID:[id number] Access Code: [email or web address] URL: [email or web address] Date: 05-06-2024 Prepared By: Rikki Tomas Program Notes Exercises - Seated 3 Way Exercise Ball Roll Out Stretch - 1 x daily - 7 x weekly - 3 sets - 10 reps - Staggered Igf-aq-Atdzp - 1 x daily - 7 x weekly - 3 sets - 10 reps - Standing Terminal Knee Extension with Resistance - 1 x daily - 7 x weekly - 3 sets - 10 reps - Supine Active Straight Leg Raise - 1 x daily - 7 x weekly - 3 sets - 10 reps - Sidelying Hip Abduction - 1 x daily - 7 x weekly - 3 sets - 10 reps - Quadricep Stretch with Chair and Counter Support - 1 x daily - 7 x weekly - 3 sets - 1 reps - Clamshell with Resistance - 1 x daily - 7 x weekly - 3 sets - 10 reps - Supine March with Posterior Pelvic Tilt - 1 x daily - 7 x weekly - 3 sets - 10 reps Normal [facility] THERAPY NTon 05-06-2024 THERAPY NT HNO ID: [id number] Author: АННА PEREZ, PT, DPT Service: ? Author Type: Physical Therapist Type: Therapy (PT/OT/Speech/Resp) Filed: 05/06/2024 17:08 Note Text: Program_ID:[id number] Access Code: [email or web address] URL: [email or web address] Date: 05-06-2024 Prepared By: Rikki Tomas Program Notes Exercises - Seated 3 Way Exercise Ball Roll Out Stretch - 1 x daily - 7 x weekly - 3 sets - 10 reps - Staggered Hkc-oh-Cnlku - 1 x daily - 7 x weekly - 3 sets - 10 reps - Standing Terminal Knee Extension with Resistance - 1 x daily - 7 x weekly - 3 sets - 10 reps - Supine Active Straight Leg Raise - 1 x daily - 7 x weekly - 3 sets - 10 reps - Sidelying Hip Abduction - 1 x daily - 7 x weekly - 3 sets - 10 reps - Quadricep Stretch with Chair and Counter Support - 1 x daily - 7 x weekly - 3 sets - 1 reps - Clamshell with Resistance - 1 x daily - 7 x weekly - 3 sets - 10 reps - Supine March with Posterior Pelvic Tilt - 1 x daily - 7 x weekly - 3 sets - 10 reps Normal [facility] [id number] 04-24-2024 [id number] HNO ID: [id number] Author: АННА PEREZ PT, DPT Service: ? Author Type: Physical Therapist Type: [id number] Filed: 04/24/2024 08:09 Note Text: [facility] Physical Therapy Plan of Care Certification Patient Name: Moira Suh : 1950 [facility] #: [id number] Date: 04/23/2024 To: Vince Hermosillo DO From Therapist: Анна Perez PT, DPT RE: Patient Certification/ Recertification Your review, approval and electronic signature are required in order to comply with Payor: [employer] / Plan: [employer] HMO / Product Type: HMO / regulations. The identified Physical Therapy PLAN OF CARE for the patient is as follows: M25.561, G89.29 Chronic pain of right knee (primary encounter diagnosis) Z47.1, Z96.651 Aftercare following right knee joint replacement surgery M54.50, G89.29 Chronic bilateral low back pain, unspecified whether sciatica present PLAN OF CARE UPDATE: Assessment: Moira Suh demonstrates mild improvements in knee pain, activity tolerance, and LE strength. She continues to have the most difficulty with stairs stating her knee shabbir at times. Patient wishing to be seen for LBP as well. She notes pain increased with prolonged standing, bending, and stooping activities. The patient has new goals added to address low back pain and progressed toward goals. Patient continues to present with impairments in flexibility, gait, independence in exercise, overall function, range of motion, strength, and symptom management that interfere with stair negotiation, cooking, twisting, cleaning (prolonged standing, grocery shopping) . Current prognosis is Good due to: current objective clinical presentation, positive past response to therapy, Prognosis may be limited due to chronic nature of impairments . The patient will benefit from continued skilled therapy services to meet the updated goals for this plan of care as noted below. Goals for Episode of Care: created on 10/09/23 (Updated 04/23/2024) [place] in home exercise program.-- progressing Patient will decrease pain rating by 2 points to meet minimal clinical important difference for numeric pain rating scale.-- progressing Patient will increase active ROM of R knee to 0-120 to allow pt to to improve gait mechanics / gait pattern .-- not assessed Patient will demonstrate increase in BLE strength to 5/5 during manual muscle testing in order to improve function for prior functional tasks.-- progressing Patient will Improve Timed Up and Go to <9.5 seconds to demonstrate decreased risk of falling.-- not assessed Patient will improve 30 second sit to stand to 15 reps without UE support to demonstrate improvement in functional lower extremity strength.-- not assessed Improved ability to walk and navigate stairs without pain and with increased confidence.-- progressing NEW GOAL: Patient will perform all trunk mobility with minimal limitation or better and decreased pain to improve overall mechanics. NEW GOAL: Patient will perform cooking, cleaning, standing >20 minutes with decreased LBP. Patient Goals: Improve strength and mobility, be able to go up stairs easier Planned Interventions, Frequency, and Duration: 1x every other week, 8 weeks Total Number of Visits Planned: 4 Patient to be seen for Therapeutic exercise (53332), Neuromuscular re-education (51796), Therapeutic activities (78531), Manual therapy (40395), Self-detention management (85335), Gait Training (55142), Patient/Family/Caregive r Education, Body Mechanics Training PLAN FOR NEXT VISIT: assess eccentric quad control stairs, progress core strength, hip strength For further details regarding this patient refer to the Physical Therapy electronically documented visit dated 04/23/2024. Provider Attestation I have reviewed the treatment plan for Moira Vikash, [facility]# [id number] for the period of 04/23/24 -- 06/18/24, established on 04/23/2024. Signature certifies the need for therapy services. [facility] 04-24-2024 [facility] Telephone (PTMDRG) MOIRA SUH ([id number]) 1950 F Date Time Provider Department 04/24/24 АННА PEREZ PTMDRG During your visit today, we recorded the following information about you: Isatu Santoyo 04/24/2024 1:09 PM Signed Called patient Had to leave a message to call us back at [phone] Patient would like to schedule with Анна Perez. In May Yoana will be working in [facility] [employer] [facility] When scheduling she might need to have a new insurance authorization. Allergies As of Date: 04/24/2024 Noted Allergy Reaction ATORVASTATIN CALCIUM 02/15/2016 17 - Myalgia Comments: Caused severe myalgias to bilateral thighs and across back CODEINE 12/27/2007 1 - Mental Status Change Comments: Can hear whats going on around her but she can't wake up CRESTOR (ROSUVASTATIN CALCIUM) 02/15/2016 17 - Myalgia Comments: 20 mg caused severe myalgias to upper thighs and across back Date Reviewed: 04/11/2024 Reviewed by: Rosalind Stevens MA - Fully Assessed Reason for Visit: Physical Therapy [503] Prescriptions as of 05/06/2024 - MEDICATION, NON-DATABASE Medical Marijuana Cream - metoprolol succinate ER (TOPROL XL) 25 mg 24 hr tablet Take 1 tablet by mouth once daily. - guwyysf-hlyc-cfrnv-oreg -capryl 100 mg-150 mg- 50 mg-150 mg cap Take 1 tablet by mouth twice daily. - Omega[employer]ics EPA-DHA 2400 (High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 detox/weight loss Take 1 capsule by mouth once daily. - CoQ10, Liposomal Ubiquinol, 200 mg cap Take 1 capsule by mouth daily with food. - cholecalciferol (VITAMIN D3) 1,000 unit tab tablet Take 1,000 Units by mouth once daily. Meds Comments as of 01/05/2023: Current per pt.09/28/15 11.2.23 - patient reports she was told that it is now okay to resume taking all supplements/meds. Project Management Specialist: Addendum Therapy (PT/OT/Speech/Resp) ID: [id number] 01/30/2024 1:15 PM Author: АННА PEREZ Signed by АННА PEREZ PT, DPT on 01/30/2024 at 1:15 PM * * * This document replaces document [id number] * * * Document text: Program_ID:[id number] Access Code: [email or web address] URL: [email or web address] Date: 01-30-2024 Prepared By: Rikki Tomas Program Notes Exercises - Hip Flexor Stretch at Edge of Bed - 1 x daily - 7 x weekly - 3 sets - 10 reps - Supine Bridge - 1 x daily - 7 x weekly - 3 sets - 10 reps - Staggered Tmz-fs-Egjnx - 1 x daily - 7 x weekly - 3 sets - 10 reps - Standing Terminal Knee Extension with Resistance - 1 x daily - 7 x weekly - 3 sets - 10 reps - Supine Active Straight Leg Raise - 1 x daily - 7 x weekly - 3 sets - 10 reps - Sidelying Hip Abduction - 1 x daily - 7 x weekly - 3 sets - 10 reps Normal [facility] THERAPY NTon 01-30-2024 THERAPY NT HNO ID: [id number] Author: АННА PEREZ, PT, DPT Service: ? Author Type: Physical Therapist Type: Therapy (PT/OT/Speech/Resp) Filed: 01/30/2024 13:15 Note Text: Program_ID:[id number] Access Code: [email or web address] URL: [email or web address] Date: 01-30-2024 Prepared By: Rikki Tomas Program Notes Exercises - Hip Flexor Stretch at Edge of Bed - 1 x daily - 7 x weekly - 3 sets - 10 reps - Supine Bridge - 1 x daily - 7 x weekly - 3 sets - 10 reps - Staggered Cfg-xh-Xemle - 1 x daily - 7 x weekly - 3 sets - 10 reps - Standing Terminal Knee Extension with Resistance - 1 x daily - 7 x weekly - 3 sets - 10 reps - Supine Active Straight Leg Raise - 1 x daily - 7 x weekly - 3 sets - 10 reps - Sidelying Hip Abduction - 1 x daily - 7 x weekly - 3 sets - 10 reps Normal [facility] Bacteria Ur Culton Bacteria identified Cx Nom (U) ORGANISM ID: 1 10,000 -<50,000 CFU/ml Normal urogenital monica Normal [facility] Comment on above: Performed By: #### 6 30-4 ####[facility] LABCLIA [id number] [address] [place] CNOVon 01-02-2024 CNOV Office Visit (FAMPWS ) MOIRA SUH ([id number]) 1950 F Date Time Provider Department 01/02/24 11:00 AM [facility] During your visit today, we recorded the following information about you: Temperature Pulse Respiration Blood pressure 97.8 degrees 64/minute 20/minute 142/90 Weight Height 99.8 kg 1.64 m Silvestre Chance, 01/02/2024 9:56 PM Signed Moira Suh is a 73 year old female here for a Medicare wellness visit. Medicare Health Risk Assessment General Health Very good Exercise: Minutes/Day 20 min Exercise: Days/Week 5 days Alcohol: Daily Use 2-4 times a month Alcohol: Drinks/Day 1 or 2 Alcohol: 6 or more drinks Never Feel off balance No Concerns: Teeth/Dentures No Concerns: Sexual function No Troubled by feelings None of the above Frequency: Eating healthy diet Nearly every day ADLs requiring help None of the above Safety precautions in home/vehicle No Smoke, vape, chews tobacco No Difficulty hearing No Difficulty seeing No Current Providers Specialists: I have reviewed specialist-related care of the patient in the medical record. Medical/Family history review Reviewed and updated problem list, medical/surgical/family /social history, medications, and allergies. Opioid use review Opioid Medications (last 90 days) No data to display Anxiety/Depression screening ELLI-7 Score: 0. Recommendation: no further intervention at this time Cognitive screening Mini Cog Score: 5 Cognitive screening reviewed and No further action needed (score 3-5). Functional Observation Was the patient's Timed Up AND Go test unsteady or >= 12 seconds? No Advance Care Planning Surrogate decision maker and/or advance care plan documented Measurements BP 142/90 Pulse 64 Temp 36.6 ?C (97.8 ?F) (Left Tympanic) Resp 20 Ht 164 cm (5' 4.57) Wt 99.8 kg (220 lb) BMI 37.10 kg/m? Vision Screening: Follows with optometry/ophthalmology Assessment/Plan Medicare annual wellness visit, subsequent (Z00.00) - Counseled on healthy diet and regular exercise - Fall avoidance information provided - Personalized prevention plan provided - Discussed need for and benefit of weight loss. BMI 37.10 kg/(m2) DO Robson Lara Jordan L, DO 01/02/2024 9:56 PM Signed CC: Moira Suh is a 73 year old female who presents to the office for follow up HPI: HTN, taking metoprolol as prescribed. Denies any CP or dyspnea or dizziness or Lh or edema. HPL, refuses statin therapy. Taking supplements as well as a healthy whole food diets with very minimal sugars or simple starches in her diet. No fast foods. Hx of CAD, no recent symptoms. Joint pain, b/l knees, she has a history of right total knee replacement surgery and has had some chronic pain after this. Interested in considering seeing osteopathic physician for surgery on left knee in the future. Intermittent urinary urgency and frequency symptoms, no hematuria or flank pain or fevers or chills. Concerns for potential UTI PAST MEDICAL HISTORY Diagnosis Date Atrial fibrillation (HCC) Coronary artery disease Holter monitor, abnormal extra beats Hypercholesteremia Hyperlipidemia Hypertension Insulin resistance 07/19/2017 Leiomyoma of uterus, unspecified Low HDL (under 40) PAST SURGICAL HISTORY Procedure Laterality Date CORONARY ARTERY BYPASS GRAFT HX 2016 3 vessel FNA WITH IMAGING 11/27/2012 U/S FNA bilateral thyroid PAST SURGICAL HISTORY OF age 28 1 ovary removed, 1 tube reconstructed from ectopic PAST SURGICAL HISTORY OF age 20 tendon repairs to wrists after going through glass door PAST SURGICAL HISTORY OF removal of uterine polyp TOTAL KNEE REPLACEMENT Right 01/02/2023 Current Outpatient Medications Medication Sig MEDICATION, NON-DATABASE Medical Marijuana Cream metoprolol succinate ER (TOPROL XL) 25 mg 24 hr tablet Take 1 tablet by mouth once daily. vvmkwna-kcdr-gmesw-oreg -capryl 100 mg-150 mg- 50 mg-150 mg cap Take 1 tablet by mouth twice daily. OmegaGenics EPA-DHA 2400 (High Concentrate EPA/DHA liquid) (LearnSomething) Take one teaspoon (5 ml) 1 times daily with food (Patient taking differently: Take 5 mL by mouth once daily. Take one teaspoon (5 ml) 1 times daily with food) MAGNESIUM ORAL Take 135 Units by mouth once daily. Takes 4 capsules daily ascorbic acid, vitamin C, (VITAMIN C) 500 mg tablet Take 2,000 mg by mouth once daily. B-Complex Plus (Pure Encapsulations) - 1qD stress/energy/hormones/ detox/weight loss Take 1 capsule by mouth once daily. CoQ10, Liposomal Ubiquinol, 200 mg cap Take 1 capsule by mouth daily with food. (Patient taking differently: Take 2 capsules by mouth daily with food.) cholecalciferol (VITAMIN D3) 1,000 unit tab tablet Take 1,000 Units by mouth once daily. No current facility-administered medications for this visit. ALLER (more content not included)... Normal [facility] UA DIP, URINE (POC)on 2023 BILIRUBIN UA (POCT) Negative Negative [facility] CLARITY UA (POCT) Clear [facility] COLOR UA (POCT) Yellow [facility] GLUCOSE UA (POCT) Negative Negative mg/dL [facility] Hemoglobin Ql (U) Negative Negative [facility] KETONE UA (POCT) Negative Negative mg/dL [facility] LEUKOCYTES UA (POCT) Negative Negative [facility] NITRITE UA (POCT) Negative Negative [facility] PH UA (POCT) 5.5 4.5 - 8.0 [facility] Protein Ql (U) Negative Negative mg/dL [facility] SPECIFIC GRAVITY UA (POCT) 1.020 1.005 - 1.030 [facility] UROBILINOGEN UA (POCT) 0.2 Normal E.U./dL [facility] Location:[address], [place], [address] [facility] POINT OF CARE [facility] CNOVon 12-26-2023 CNOV Office Visit (ORMDNA ) MOIRA SUH ([id number]) 1950 F Date Time Provider Department 12/26/23 3:00 PM NELA FERREIRA During your visit today, we recorded the following information about you: Nela Ferreira MD 01/23/2024 7:[address] FREREIRA- POST-OP KNEE ======= Post-Op F/U Office Visit ======= Moira Suh presents today for a 1 year status post Right TKA. Post-operative recovery was uneventful. Patient's rating of condition: unchanged Comments: Patient is unhappy with her knee. She feels that some of her function such as ascending/descending steps is still difficult. She reports that the clicking in the back of her knee is reported at the time of previous visits is no longer present Does the Pt. still experience pain? PAIN EVALUATION 12/25/2023 9050 12/26/2023 1526 Pain Level: -- 0 Pain Location: Knee-Left Knee-Right Description: Aching;Sharp -- Functional difficulties: Stair climbing Physical Therapy: Completed course of therapy Pain Medication: None Ambulating without assistance. Medications and Allergies reviewed and verified. ======= EXAM: ======= GEN: AANDO x3, NAD SKIN:Appropriate postop appearance Incision intact Incision well healed RightKnee: ROM: Flexion/Extension:0 degrees to 120 degrees Pain with ROM:No Mal-alignment: No Effusion: None Mild tenderness in the popliteal fossa Stability:Anterior/Post erior- Yes, stable and Varus/Valgus- Yes, stable Quad strength: normal HIP: range of motion no loss ROM NV: intact and Vignesh's negative ======= IMAGING: ======= Xrays: Implants are well aligned. Implants are well fixed. There is no evidence of loosening. There is evidence of osteo-integration. There is no evidence of osteolysis. Patella is well positioned. ===== IMPRESSION/PLAN: ===== 73 year old female s/p Left TKA Knee appears to be stable however she still has some discomfort particularly with ascending/descending steps. I recommend that we refer her back to physical therapy for quadricep strengthening and attempt to improve her function. Plan: 1.Refer to physical therapy 2. Continue total knee precautions 3. Follow-up for repeat evaluation of knee after therapy Nela Ferreira MD Electronic Signature Allergies As of Date: 12/26/2023 Noted Allergy Reaction ATORVASTATIN CALCIUM 02/15/2016 17 - Myalgia Comments: Caused severe myalgias to bilateral thighs and across back CODEINE 12/27/2007 1 - Mental Status Change Comments: Can hear whats going on around her but she can't wake up CRESTOR (ROSUVASTATIN CALCIUM) 02/15/2016 17 - Myalgia Comments: 20 mg caused severe myalgias to upper thighs and across back Date Reviewed: 12/26/2023 Reviewed by: Hannah Brown OCCA - Fully Assessed Reason for Visit: Follow Up [171] Knee Replacement [363] Primary Visit Diagnosis:Aftercare following right knee joint replacement surgery [Z47.1, Z96.651] Order(s):CONSULT TO PHYSICAL THERAPY [9032] Order #: [id number]: 1 FUTURE Prescriptions as of 01/23/2024 - MEDICATION, NON-DATABASE Medical Marijuana Cream - metoprolol succinate ER (TOPROL XL) 25 mg 24 hr tablet Take 1 tablet by mouth once daily. - rbobmzg-uvkd-ifzqm-oreg -capryl 100 mg-150 mg- 50 mg-150 mg cap Take 1 tablet by mouth twice daily. - OmegaGenics EPA-DHA 2400 (High Concentrate EPA/DHA liquid) (LearnSomething) Take one teaspoon (5 ml) 1 times daily with food - MAGNESIUM ORAL Take 135 Units by mouth once daily. Takes 4 capsules daily - ascorbic acid, vitamin C, (VITAMIN C) 500 mg tablet Take 2,000 mg by mouth once daily. - B-Complex Plus (Pure Encapsulations) - 1qD stress/energy/hormones/ detox/weight loss Take 1 capsule by mouth once daily. - CoQ10, Liposomal Ubiquinol, 200 mg cap Take 1 capsule by mouth daily with food. - cholecalciferol (VITAMIN D3) 1,000 unit tab tablet Take 1,000 Units by mouth once daily. Meds Comments as of 01/05/2023: Current per pt.09/28/15 11.2.23 - patient reports she was told that it is now okay to resume taking all supplements/meds. Problem List As Of Date 12/26/2023 Noted Resolved UTERINE LEIOMYOMA NOS [D25.9] 12/27/2007 MUCOUS POLYP OF CERVIX [N84.1] 12/27/2007 POSTMENOPAUSAL BLEEDING [N95.0] 12/27/2007 Low HDL (under 40) [E78.6] 10/07/2012 Hyperlipidemia [E78.5] 10/07/2012 Multinodular goiter [E04.2] 10/29/2012 CAD (coronary artery disease) [I25.10] 10/15/2015 H/O non-ST elevation myocardial infarction (NST*10/15/2015 S/P CABG x 3 (L-LAD, S-CX, S-RCA) 07/2015 [Z95.1]10/15/2015 Cardiomyopathy, ischemic [I25.5] 10/15/2015 03/11/2019 Moderate mitral regurgitation [I34.0] 10/15/2015 04/26/2016 Obesity [E66.9] (more content not included)... Normal [facility] Dariel 12-19-2023 CNPN Telephone (FAMPWS) MOIRA SUH ([id number]) 1950 F Date Time Provider Department 12/19/23 [facility] During your visit today, we recorded the following information about you: Flor Plunkett LPN 12/19/2023 3:16 PM Signed Pt states she thinks she has a UTI, reports increased urination AND burning with urination X several wks. Pt requesting a urine lab test. Appt was offered AND pt was told she could go to for same, pt declined stating she just wants to have a lab test. Please advise. CIELO Mcmillan Rebekah, APRN.SUMEET 12/19/2023 5:29 PM Signed She'll need to go to express care or schedule an appt. Kianna Marques APRN.Latonia Weiner MA 12/20/2023 8:00 AM Signed Sent pt message SILVANA Morocho Donna M, RN 12/20/2023 1:20 PM Signed Spoke with patient. Given message from provider's office. Patient verbalizes understanding. Kaveh Bo RN Allergies As of Date: 12/19/2023 Noted Allergy Reaction ATORVASTATIN CALCIUM 02/15/2016 17 - Myalgia Comments: Caused severe myalgias to bilateral thighs and across back CODEINE 12/27/2007 1 - Mental Status Change Comments: Can hear whats going on around her but she can't wake up CRESTOR (ROSUVASTATIN CALCIUM) 02/15/2016 17 - Myalgia Comments: 20 mg caused severe myalgias to upper thighs and across back Date Reviewed: 11/13/2023 Reviewed by: Melinda Tellez DO - Fully Assessed Reason for Visit: Orders [681] Prescriptions as of 12/20/2023 - MEDICATION, NON-DATABASE Medical Marijuana Cream - metoprolol succinate ER (TOPROL XL) 25 mg 24 hr tablet Take 1 tablet by mouth once daily. - vmllymd-lbxz-lueaf-oreg -capryl 100 mg-150 mg- 50 mg-150 mg cap Take 1 tablet by mouth twice daily. - OmegaGenics EPA-DHA 2400 (High Concentrate EPA/DHA liquid) (LearnSomething) Take one teaspoon (5 ml) 1 times daily with food - MAGNESIUM ORAL Take 135 Units by mouth once daily. Takes 4 capsules daily - ascorbic acid, vitamin C, (VITAMIN C) 500 mg tablet Take 2,000 mg by mouth once daily. - B-Complex Plus (Pure Encapsulations) - 1qD stress/energy/hormones/ detox/weight loss Take 1 capsule by mouth once daily. - CoQ10, Liposomal Ubiquinol, 200 mg cap Take 1 capsule by mouth daily with food. - cholecalciferol (VITAMIN D3) 1,000 unit tab tablet Take 1,000 Units by mouth once daily. Meds Comments as of 01/05/2023: Current per pt.09/28/15 11.2.23 - patient reports she was told that it is now okay to resume taking all supplements/meds. Problem List As Of Date 12/19/2023 Noted Resolved UTERINE LEIOMYOMA NOS [D25.9] 12/27/2007 MUCOUS POLYP OF CERVIX [N84.1] 12/27/2007 POSTMENOPAUSAL BLEEDING [N95.0] 12/27/2007 Low HDL (under 40) [E78.6] 10/07/2012 Hyperlipidemia [E78.5] 10/07/2012 Multinodular goiter [E04.2] 10/29/2012 CAD (coronary artery disease) [I25.10] 10/15/2015 H/O non-ST elevation myocardial infarction (NST*10/15/2015 S/P CABG x 3 (L-LAD, S-CX, S-RCA) 07/2015 [Z95.1]10/15/2015 Cardiomyopathy, ischemic [I25.5] 10/15/2015 03/11/2019 Moderate mitral regurgitation [I34.0] 10/15/2015 04/26/2016 Obesity [E66.9] 10/15/2015 04/12/2017 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] 04/12/2017 Dry skin [L85.3] 04/12/2017 Hair loss [L65.9] 04/12/2017 BMI 34.0-34.9,adult [Z68.34] 04/12/2017 Exposure to mercury [Z77.018] 04/12/2017 PAF (paroxysmal atrial fibrillation) (HCC) [I48*06/26/2017 Insulin resistance [E88.819] 07/19/2017 Vitamin D deficiency [E55.9] 09/13/2017 Former smoker [Z87.891] 12/21/2022 S/P total knee arthroplasty, right [Z96.651] 01/03/2023 Primary osteoarthritis of left knee [M17.12] 01/22/2023 Primary osteoarthritis of right knee [M17.11] 01/22/2023 Aftercare following right knee joint replacemen*10/09/2023 Encounter Status:Closed by KAVEH BO on 12/20/23 [facility] Dariel 11-15-2023 CNPN Telephone (NSCAMN) MOIRA SUH ([id number]) 1950 F Date Time Provider Department 11/15/23 SELF NSCAMN During your visit today, we recorded the following information about you: Axel Arshad 11/15/2023 12:07 PM Signed Spoke with Patient to schedule a 6 Mo F/u per Database , patient refused stated she did not want to do 6 mo and requested 12 mo , patient is scheduled for 07/2024 Axel Arshad November 15, 2023 12:07 PM Allergies As of Date: 11/15/2023 Noted Allergy Reaction ATORVASTATIN CALCIUM 02/15/2016 17 - Myalgia Comments: Caused severe myalgias to bilateral thighs and across back CODEINE 12/27/2007 1 - Mental Status Change Comments: Can hear whats going on around her but she can't wake up CRESTOR (ROSUVASTATIN CALCIUM) 02/15/2016 17 - Myalgia Comments: 20 mg caused severe myalgias to upper thighs and across back Date Reviewed: 11/13/2023 Reviewed by: Melinda Tellez DO - Fully Assessed Reason for Visit: Appointment [186] Prescriptions as of 11/15/2023 - MEDICATION, NON-DATABASE Medical Marijuana Cream - metoprolol succinate ER (TOPROL XL) 25 mg 24 hr tablet Take 1 tablet by mouth once daily. - valhwhf-igxt-tctta-oreg -capryl 100 mg-150 mg- 50 mg-150 mg cap Take 1 tablet by mouth twice daily. - OmegaGenics EPA-DHA 2400 (High Concentrate EPA/DHA liquid) (LearnSomething) Take one teaspoon (5 ml) 1 times daily with food - MAGNESIUM ORAL Take 135 Units by mouth once daily. Takes 4 capsules daily - ascorbic acid, vitamin C, (VITAMIN C) 500 mg tablet Take 2,000 mg by mouth once daily. - B-Complex Plus (Pure Encapsulations) - 1qD stress/energy/hormones/ detox/weight loss Take 1 capsule by mouth once daily. - CoQ10, Liposomal Ubiquinol, 200 mg cap Take 1 capsule by mouth daily with food. - cholecalciferol (VITAMIN D3) 1,000 unit tab tablet Take 1,000 Units by mouth once daily. Meds Comments as of 01/05/2023: Current per pt.09/28/15 11.2.23 - patient reports she was told that it is now okay to resume taking all supplements/meds. Problem List As Of Date 11/15/2023 Noted Resolved UTERINE LEIOMYOMA NOS [D25.9] 12/27/2007 MUCOUS POLYP OF CERVIX [N84.1] 12/27/2007 POSTMENOPAUSAL BLEEDING [N95.0] 12/27/2007 Low HDL (under 40) [E78.6] 10/07/2012 Hyperlipidemia [E78.5] 10/07/2012 Multinodular goiter [E04.2] 10/29/2012 CAD (coronary artery disease) [I25.10] 10/15/2015 H/O non-ST elevation myocardial infarction (NST*10/15/2015 S/P CABG x 3 (L-LAD, S-CX, S-RCA) 07/2015 [Z95.1]10/15/2015 Cardiomyopathy, ischemic [I25.5] 10/15/2015 03/11/2019 Moderate mitral regurgitation [I34.0] 10/15/2015 04/26/2016 Obesity [E66.9] 10/15/2015 04/12/2017 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] 04/12/2017 Dry skin [L85.3] 04/12/2017 Hair loss [L65.9] 04/12/2017 BMI 34.0-34.9,adult [Z68.34] 04/12/2017 Exposure to mercury [Z77.018] 04/12/2017 PAF (paroxysmal atrial fibrillation) (HCC) [I48*06/26/2017 Insulin resistance [E88.819] 07/19/2017 Vitamin D deficiency [E55.9] 09/13/2017 Former smoker [Z87.891] 12/21/2022 S/P total knee arthroplasty, right [Z96.651] 01/03/2023 Primary osteoarthritis of left knee [M17.12] 01/22/2023 Primary osteoarthritis of right knee [M17.11] 01/22/2023 Aftercare following right knee joint replacemen*10/09/2023 Encounter Status:Closed by AXEL ARSHAD on 11/15/23 [facility] CNOVon 11-13-2023 CNOV Office Visit (OMMS) VIKASHMOIRA ([id number]) 1950 F Date Time Provider Department 11/13/23 2:15 PM MELINDA TELLEZ OMMS During your visit today, we recorded the following information about you: Temperature Pulse Blood pressure Weight 97.1 degrees 76/minute 173/90 100.9 kg Darline Ferrer DO 11/16/2023 1:10 PM Signed Name: Moira Suh Date of : 1950 Date of Exam: November 13, 2023 CC: This is Moira Suh, a 73 year old female who presents with Patient presents with: Right Knee Pain History of Present Illness: Last seen for OMT on 09/28/[address] Lowery for right knee pain, s/p knee replacement Nov 2022. Clicking behind knee improved after last visit. Can extend knee more now. [place] like omt provided good relief. Still feels a pulling like rubber bands in the back of the right knee. Pivoting to the right gives shooting pain to the right side of the knee. Can't go upstairs or step up onto an elevated surface--problem with the weight bearing phase. Feels very unbalanced. Feels worse than before the knee replacement in regards to function. Doing physical therapy exercises at home. Recumbent bike hurts left knee. Both knees always swollen. Not red or warm. Using fsm at home Left knee is bad too. Trauma History: No new falls or injuries. Past Medical History: PAST MEDICAL HISTORY No date: Atrial fibrillation (HCC) No date: Coronary artery disease No date: Holter monitor, abnormal Comment: extra beats No date: Hypercholesteremia No date: Hyperlipidemia No date: Hypertension 07/19/2017: Insulin resistance No date: Leiomyoma of uterus, unspecified No date: Low HDL (under 40) Past Surgical History: PAST SURGICAL HISTORY 2016: CORONARY ARTERY BYPASS GRAFT HX Comment: 3 vessel 11/27/2012: FNA WITH IMAGING Comment: U/S FNA bilateral thyroid age 28: PAST SURGICAL HISTORY OF Comment: 1 ovary removed, 1 tube reconstructed from ectopic age 20: PAST SURGICAL HISTORY OF Comment: tendon repairs to wrists after going through glass door No date: PAST SURGICAL HISTORY OF Comment: removal of uterine polyp 01/02/2023: TOTAL KNEE REPLACEMENT; Right Family History: FAMILY HISTORY Problem Relation Age of Onset Prostate Cancer Father Thyroid Mother Hypertension Mother Thyroid Sister Social History: Moira Suh reports that she has quit smoking. Her smoking use included cigarettes. She has a 10 pack-year smoking history. She has never used smokeless tobacco. She reports current alcohol use. She reports that she does not use drugs. Employer And Job Title: None on file Years Of Education Completed: Not specified Marital Status: Medications/Supplements : Reviewed Allergies: Reviewed Review of Systems: Review of Systems sheet reviewed and discussed with patient. See HPI above Physical Exam: VITALS: BP 173/90 Pulse 76 Temp (Src) 97.1 (Temporal) Wt 222 lb 7.1 oz (100.9kg) Body mass index is 36.44 kg/m? (pended). Constitutional: awake and alert, in no acute distress Cardio: no peripheral edema Pulmonary: normal effort, in no acute respiratory distress Abdomen: soft, nondistended Neurologic: at neurologic baseline Psychiatric: normal mood and affect, cooperative, normal speech MSK: externally rotated right hip, mild knee swelling bilaterally without overlying erythema or warmth, full flex/ext of right knee without clicking, left knee flexed when resting but able to straighten Assessment and Plan: Based on the history and physical exam findings, Osteopathic manipulative treatment was indicated, verbal consent was obtained and the following procedures were performed: Encounter Diagnosis ICD-10-CM 1. Chronic pain of right knee M25.561 PARKING FOR HANDICAPPED G89.29 2. S/P total knee arthroplasty, right Z96.651 PARKING FOR HANDICAPPED 3. Chronic pain of left knee M25.562 PARKING FOR HANDICAPPED G89.29 4. Somatic dysfunction of lower extremities M99.06 5. Somatic dysfunction of thoracic region M99.02 73 yo F with chronic right knee pain s/p knee replacement 11 months ago, and chronic left knee pain. She has made improvements each visit in her function and pain and has had good relief from OMT thus far. Following the visit she states the pain in her left knee is gone, less stiff. Right knee pain also improved/gone. - continue physical therapy exercises at home - handicap placard ordered today due to unsteadiness and knee giving out at times - discussed seeing someone who does myofascial work; this would be a nice complement between visits to give relief - continue using fsm at home OMT was performed today to improve function and reduce symptoms with good effect. Return in about 4 weeks (around 12/11/2023). Time Spent (min): 40 >50% of time spent on the date of service (more content not included)... Normal [facility] Osteopathic manipulative zacarias atment (OMT)on 11-13-2023 Darline Ferrer DO 11/16/2023 1:10 PM Osteopathic manipulative treatment (OMT) Time/Date:11/13/2023 3:18 PM Informed Consent Consent Obtained: Verbal [place] Protocol A moment to CARE was completed. SIGN IN Special Equipment: N/A Patient/Surrogate Stated/Verified: Patient name and Date of TIME OUT Consent Obtained:Verbal Body Regions: Thoracic and Lower Extremities Thoracic Technique: Thoracic inlet rotated right treated with myofascial release Lower Extremities Technique:Bilateral naviculars dropped treated with balanced ligamentous tension Talus posterior bilaterally treated with balanced ligamentous tension Bilateral fibular head posterior treated with muscle energy Right tib-fib interosseous membrane restriction treated with myofascial release Right patella lateral and inferior treated with balanced ligamentous tension Number of Body Regions: 1 -2 Disposition: Osteopathic manipulation tolerated well, reports subjective and objective improvement, improvement in range of motion and mechanics, instructed to increase hydration for the next 24 hours and instructed to follow up if symptoms worsen or fail to improve [facility] CNOVon 10-26-2023 CNOV Office Visit (ORMDNA ) MOIRA SUH ([id number]) 1950 F Date Time Provider Department 10/26/23 2:00 PM NELA FERREIRA During your visit today, we recorded the following information about you: Nela Ferreira MD 11/23/2023 4:[address] FERREIRA- POST-OP KNEE ======= Post-Op F/U Office Visit ======= Moira Suh presents today for a almost 10 months status post Right TKA. Post-operative recovery was uneventful. Patient's rating of condition: unchanged Comments: Patient's primary complaint is that she still feels weak Does the Pt. still experience pain? PAIN EVALUATION 10/26/2023 3777 Pain Level: 4 Pain Location: Knee-Right Description: Sore;Stiffness Duration Amount of Time: -- ongoing Frequency: Continuous Intervention/Comfort measure: Relaxation;Positioning Functional difficulties: Stair climbing Physical Therapy: Completed course of therapy Pain Medication: Non-narcotic Ambulating without assistance. Medications and Allergies reviewed and verified. ======= EXAM: ======= GEN: AANDO x3, NAD SKIN:Appropriate postop appearance Incision intact Incision well healed RightKnee: ROM: Flexion/Extension:0 degrees to 115 degrees Pain with ROM:No Mal-alignment: No Effusion: None Tender to palpation of the medial joint line(s). Stability:Anterior/Post erior- Yes, stable and Varus/Valgus- Yes, stable Quad strength: normal HIP: range of motion no loss ROM NV: intact and Vignesh's negative ======= IMAGING: ======= Xrays: No x-rays today ===== IMPRESSION/PLAN: ===== 73 year old female s/p Right TKA Slow post-operative recovery. Patient is not manifesting any objective signs of sepsis or loosening Plan: 1. Continue independent range of motion/strengthening exercises 2. Continue total knee precautions including the use of antibiotics for dental procedures 3. Follow-up 2 months for repeat clinical possible radiographic evaluation Nela Ferreira MD Electronic Signature Referring Provider: NELA FERREIRA [[id number]] Allergies As of Date: 10/26/2023 Noted Allergy Reaction ATORVASTATIN CALCIUM 02/15/2016 17 - Myalgia Comments: Caused severe myalgias to bilateral thighs and across back CODEINE 12/27/2007 1 - Mental Status Change Comments: Can hear whats going on around her but she can't wake up CRESTOR (ROSUVASTATIN CALCIUM) 02/15/2016 17 - Myalgia Comments: 20 mg caused severe myalgias to upper thighs and across back Date Reviewed: 10/26/2023 Reviewed by: Hannah Brown OCCA - Fully Assessed Reason for Visit: Follow Up [171] Knee Replacement [363] Primary Visit Diagnosis:Aftercare following right knee joint replacement surgery [Z47.1, Z96.651] Prescriptions as of 11/23/2023 - MEDICATION, NON-DATABASE Medical Marijuana Cream - metoprolol succinate ER (TOPROL XL) 25 mg 24 hr tablet Take 1 tablet by mouth once daily. - cmmqrqi-ergs-pbpdr-oreg -capryl 100 mg-150 mg- 50 mg-150 mg cap Take 1 tablet by mouth twice daily. - OmegaGenics EPA-DHA 2400 (High Concentrate EPA/DHA liquid) (LearnSomething) Take one teaspoon (5 ml) 1 times daily with food - MAGNESIUM ORAL Take 135 Units by mouth once daily. Takes 4 capsules daily - ascorbic acid, vitamin C, (VITAMIN C) 500 mg tablet Take 2,000 mg by mouth once daily. - B-Complex Plus (Pure Encapsulations) - 1qD stress/energy/hormones/ detox/weight loss Take 1 capsule by mouth once daily. - CoQ10, Liposomal Ubiquinol, 200 mg cap Take 1 capsule by mouth daily with food. - cholecalciferol (VITAMIN D3) 1,000 unit tab tablet Take 1,000 Units by mouth once daily. Meds Comments as of 01/05/2023: Current per pt.09/28/15 11.2.23 - patient reports she was told that it is now okay to resume taking all supplements/meds. Problem List As Of Date 10/26/2023 Noted Resolved UTERINE LEIOMYOMA NOS [D25.9] 12/27/2007 MUCOUS POLYP OF CERVIX [N84.1] 12/27/2007 POSTMENOPAUSAL BLEEDING [N95.0] 12/27/2007 Low HDL (under 40) [E78.6] 10/07/2012 Hyperlipidemia [E78.5] 10/07/2012 Multinodular goiter [E04.2] 10/29/2012 CAD (coronary artery disease) [I25.10] 10/15/2015 H/O non-ST elevation myocardial infarction (NST*10/15/2015 S/P CABG x 3 (L-LAD, S-CX, S-RCA) 07/2015 [Z95.1]10/15/2015 Cardiomyopathy, ischemic [I25.5] 10/15/2015 03/11/2019 Moderate mitral regurgitation [I34.0] 10/15/2015 04/26/2016 Obesity [E66.9] 10/15/2015 04/12/2017 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] 04/12/2017 Dry skin [L85.3] 04/12/2017 Hair loss [L65.9] 04/12/2017 BMI 34.0-34.9,adult [Z68.34] 04/12/2017 Exposure to mercury [Z77.018] 04/12/2017 PAF (paroxysmal atrial fibrillation) (HCC) [I48*06/26/2017 Insulin resistance [E88.819] (more content not included)... Normal [facility] CNTHERAPYon 10-18-2023 CNTHERAPY OT/PT/Speech Visit (PTMDRG) MOIRA SUH ([id number]) 1950 F Date Time Provider Department 10/18/23 3:45 PM JIN SANTIAGO PTMINGRIS Date Time Provider Department Center 10/18/2023 3:45 PM [id number] SANTIAGO PTMDRG [facility] Reason for Visit: Physical Therapy [503] Primary Visit Diagnosis:Aftercare following right knee joint replacement surgery [Z47.1, Z96.651] Allergies As of Date: 10/18/2023 Noted Allergy Reaction ATORVASTATIN CALCIUM 02/15/2016 17 - Myalgia Comments: Caused severe myalgias to bilateral thighs and across back CODEINE 12/27/2007 1 - Mental Status Change Comments: Can hear whats going on around her but she can't wake up CRESTOR (ROSUVASTATIN CALCIUM) 02/15/2016 17 - Myalgia Comments: 20 mg caused severe myalgias to upper thighs and across back Date Reviewed: 09/28/2023 Reviewed by: Aristeo Boone MA - Fully Assessed Prescriptions as of 10/18/2023 - MEDICATION, NON-DATABASE Medical Marijuana Cream - metoprolol succinate ER (TOPROL XL) 25 mg 24 hr tablet Take 1 tablet by mouth once daily. - rysmrhf-mxvb-hecdl-oreg -capryl 100 mg-150 mg- 50 mg-150 mg cap Take 1 tablet by mouth twice daily. - OmegaGenics EPA-DHA 2400 (High Concentrate EPA/DHA liquid) (LearnSomething) Take one teaspoon (5 ml) 1 times daily with food - MAGNESIUM ORAL Take 135 Units by mouth once daily. Takes 4 capsules daily - ascorbic acid, vitamin C, (VITAMIN C) 500 mg tablet Take 2,000 mg by mouth once daily. - B-Complex Plus (Pure Encapsulations) - 1qD stress/energy/hormones/ detox/weight loss Take 1 capsule by mouth once daily. - CoQ10, Liposomal Ubiquinol, 200 mg cap Take 1 capsule by mouth daily with food. - cholecalciferol (VITAMIN D3) 1,000 unit tab tablet Take 1,000 Units by mouth once daily. Meds Comments as of 01/05/2023: Current per pt.09/28/15 11.2.23 - patient reports she was told that it is now okay to resume taking all supplements/meds. Project Management Specialist: Therapy (PT/OT/Speech/Resp) ID: [id number] 10/18/2023 4:24 PM Author: JIN SANTIAGO Signed by JIN SANTIAGO PTA on 10/18/2023 at 4:24 PM Document text: Program_ID:[id number] Access Code: [email or web address] URL: [email or web address] Date: 10-18-2023 Prepared By: Rikki Tomas Program Notes 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 - Day 1 OP PT. Exercises - Supine Active Straight Leg Raise - 1 x daily - x weekly - 2 sets - 10 reps - Sidelying Hip Abduction - 2 x daily - 7 x weekly - 2 sets - 10 reps - Sit to Stand - 2 x daily - 7 x weekly - 2 sets - 8-12 reps - Seated Long Arc Quad - 2 x daily - 7 x weekly - 3 sets - 10 reps - Supine Quad Set - 2 x daily - 7 x weekly - 3 sets - 10 reps - Seated March - 2 x daily - 7 x weekly - 3 sets - 10 reps [facility] THERAPY NTon 10-18-2023 THERAPY NT HNO ID: [id number] Author: JIN SANTIAGO PTA Service: ? Author Type: Aviation Consultant Type: Therapy (PT/OT/Speech/Resp) Filed: 10/18/2023 16:24 Note Text: Program_ID:[id number] Access Code: [email or web address] URL: [email or web address] Date: 10-18-2023 Prepared By: Rikki Tomas Program Notes 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 - Day 1 OP PT. Exercises - Supine Active Straight Leg Raise - 1 x daily - x weekly - 2 sets - 10 reps - Sidelying Hip Abduction - 2 x daily - 7 x weekly - 2 sets - 10 reps - Sit to Stand - 2 x daily - 7 x weekly - 2 sets - 8-12 reps - Seated Long Arc Quad - 2 x daily - 7 x weekly - 3 sets - 10 reps - Supine Quad Set - 2 x daily - 7 x weekly - 3 sets - 10 reps - Seated March - 2 x daily - 7 x weekly - 3 sets - 10 reps [facility] [id number] 10-09-2023 [id number] HNO ID: [id number] Author: THU SCOTT PT Service: ? Author Type: Physical Therapist Type: [id number] Filed: 10/09/2023 15:02 Note Text: [facility] Physical Therapy Plan of Care Certification Patient Name: Moira Suh : 1950 [facility] #: [id number] Date: 10/09/2023 To: Nela Ferreira MD From Therapist: Thu Scott PT RE: Patient Certification/ Recertification Your review, approval and electronic signature are required in order to comply with Payor: [facility] [employer] / Plan: [employer] MEDICARE ADVANTAGE HMO / Product Type: HMO / regulations. The identified Physical Therapy PLAN OF CARE for the patient is as follows: Z47.1, Z96.651 Aftercare following right knee joint replacement surgery PLAN OF CARE: Assessment: Moira Suh presents with chief complaint of weakness in the R leg that interferes with rising from a chair, standing, walking, stair negotiation . She presents with impairments in gait, range of motion, strength, and tissue tenderness. PROMIS? (Patient-Reported Outcomes Measurement Information System) scores were reviewed and identified as a rehabilitation concern. Prognosis for therapy is Good due to: current objective clinical presentation, positive past response to therapy, Prognosis may be limited due to chronic nature of impairments . She will benefit from skilled therapy services to meet the goals established for this plan of care as noted below. Goals for Episode of Care: created on 10/09/23 through 12/08/23 [place] in home exercise program. Patient will decrease pain rating by 2 points to meet minimal clinical important difference for numeric pain rating scale. Patient will increase active ROM of R knee to 0-120 to allow pt to to improve gait mechanics / gait pattern . Patient will demonstrate increase in BLE strength to 5/5 during manual muscle testing in order to improve function for prior functional tasks. Patient will Improve Timed Up and Go to <9.5 seconds to demonstrate decreased risk of falling. Patient will improve 30 second sit to stand to 15 reps without UE support to demonstrate improvement in functional lower extremity strength. Normal gait. Reciprocal stair negotiation with rail. Patient Goals: Improve strength and mobility, be able to go up stairs easier Planned Interventions, Frequency, and Duration: Current Frequency: 1x/week Duration: 8 weeks Total Number of Visits Planned: 8 Planned Treatment Interventions: Therapeutic exercise (84287), Neuromuscular re-education (11131), Therapeutic activities (66908), Manual therapy (17380), Self-detention management (33931), Gait Training (13093), Patient/Family/Caregive r Education, Body Mechanics Training PLAN FOR NEXT VISIT: hamstring stretching, TKE, step taps to tall step, step ups to small step, continue hip strength Patient demonstrates good understanding of plan of care and treatment. The above goals and plan of care were discussed and agreed upon by patient/family. For further details regarding this patient refer to the Physical Therapy electronically documented visit dated 10/09/2023. Provider Attestation I have reviewed the treatment plan for Moira Suh, [facility]# [id number] for the period of 10/09/23 -- 12/08/23, established on 10/09/2023. Signature certifies the need for therapy services. [facility] CNTHERAPYon 10-09-2023 CNTHERAPY OT/PT/Speech Visit (PTMDRG) VIKASHFERNANDAMOIRA ([id number]) 1950 F Date Time Provider Department 10/09/23 2:00 PM THU SCOTT PTMDRG Date Time Provider Department Center 10/09/2023 2:00 PM [id number], JULIE PTMDRG [facility] Reason for Visit: PT Eval [747] Visit Diagnosis:Aftercare following right knee joint replacement surgery [Z47.1, Z96.651] Allergies As of Date: 10/09/2023 Noted Allergy Reaction ATORVASTATIN CALCIUM 02/15/2016 17 - Myalgia Comments: Caused severe myalgias to bilateral thighs and across back CODEINE 12/27/2007 1 - Mental Status Change Comments: Can hear whats going on around her but she can't wake up CRESTOR (ROSUVASTATIN CALCIUM) 02/15/2016 17 - Myalgia Comments: 20 mg caused severe myalgias to upper thighs and across back Date Reviewed: 09/28/2023 Reviewed by: Aristeo Boone MA - Fully Assessed Prescriptions as of 10/09/2023 - MEDICATION, NON-DATABASE Medical Marijuana Cream - metoprolol succinate ER (TOPROL XL) 25 mg 24 hr tablet Take 1 tablet by mouth once daily. - ocvgrpo-hynz-iyppq-oreg -capryl 100 mg-150 mg- 50 mg-150 mg cap Take 1 tablet by mouth twice daily. - OmegaGenics EPA-DHA 2400 (High Concentrate EPA/DHA liquid) (LearnSomething) Take one teaspoon (5 ml) 1 times daily with food - MAGNESIUM ORAL Take 135 Units by mouth once daily. Takes 4 capsules daily - ascorbic acid, vitamin C, (VITAMIN C) 500 mg tablet Take 2,000 mg by mouth once daily. - B-Complex Plus (Pure Encapsulations) - 1qD stress/energy/hormones/ detox/weight loss Take 1 capsule by mouth once daily. - CoQ10, Liposomal Ubiquinol, 200 mg cap Take 1 capsule by mouth daily with food. - cholecalciferol (VITAMIN D3) 1,000 unit tab tablet Take 1,000 Units by mouth once daily. Meds Comments as of 01/05/2023: Current per pt.09/28/15 11.2.23 - patient reports she was told that it is now okay to resume taking all supplements/meds. Project Management Specialist: Addendum Therapy (PT/OT/Speech/Resp) ID: [id number] 10/09/2023 2:59 PM Author: THU SCOTT Signed by THU SCOTT PT on 10/09/2023 at 2:59 PM * * * This document replaces document [id number] * * * Document text: Program_ID:[id number] Access Code: [email or web address] URL: [email or web address] Date: 10-09-2023 Prepared By: Rikki Tomas Program Notes 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 - Day 1 OP PT. Exercises - Supine Active Straight Leg Raise - 1 x daily - x weekly - 2 sets - 10 reps - Sidelying Hip Abduction - 2 x daily - 7 x weekly - 2 sets - 10 reps - Sit to Stand - 2 x daily - 7 x weekly - 2 sets - 8-12 reps [facility] THERAPY NTon 10-09-2023 THERAPY NT HNO ID: [id number] Author: THU SCOTT PT Service: Physical Therapy Author Type: Physical Therapist Type: Therapy (PT/OT/Speech/Resp) Filed: 10/09/2023 14:59 Note Text: Program_ID:[id number] Access Code: [email or web address] URL: [email or web address]/ Date: 10-09-2023 Prepared By: Rikki Tomas Program Notes 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 - Day 1 OP PT. Exercises - Supine Active Straight Leg Raise - 1 x daily - x weekly - 2 sets - 10 reps - Sidelying Hip Abduction - 2 x daily - 7 x weekly - 2 sets - 10 reps - Sit to Stand - 2 x daily - 7 x weekly - 2 sets - 8[facility] Office Visit (OMMS) MOIRA SUH ([id number]) 1950 F Date Time Provider Department 09/28/23 3:15 PM DASHAWN LOWERY OMVA During your visit today, we recorded the following information about you: Temperature Pulse Blood pressure Weight 97.2 degrees 79/minute 135/82 99.7 kg Darline Ferrer DO 10/03/2023 3:31 PM Signed Osteopathic Neuromusculoskeletal Medicine Outpatient Progress Note Name: Moira Suh Date of : 1950 Date of Exam: September 28, 2023 Last ON Office Visit: 09/07/2023 Silvestre Chance DO is the PCP for this patient. I am seeing this patient for neuromusculoskeletal evaluation and if indicated, osteopathic manipulative treatment, and am returning the patient to Silvestre Chance DO for primary care. CC: This is Moira Suh, a 73 year old female. Patient presents with: Knee Pain History of Present Illness: Last OMT visit 09/07/23 (initial) for right knee pain and sensation of weakness after knee replacement November 2022. Did treat with percussion and the fascial distortion model and leg no longer externally rotated after treatment. Subsequently saw ortho 09/09 recommended hinged knee sleeve for flexion instability, no bony derangement. Today reports: Trigger band is gone, leg is no longer rotating outward 90% of the clicking behind the right knee stopped after last Sunday. Still some pain though. She can make it click if she swings the leg back and forth. However her leg is weaker, less steady and less mobile. This is intermittent. Takes a long time to get the right knee completely straight Left knee is getting worse because it has to support the right Starting PT at Dr. Ferreira's office, will be someone with more experience Reviewed: Meds, problem list, allergies Social History: Moira Suh reports that she has quit smoking. Her smoking use included cigarettes. She has a 10 pack-year smoking history. She has never used smokeless tobacco. She reports current alcohol use. She reports that she does not use drugs. Employer And Job Title: None on file Years Of Education Completed: Not specified Marital Status: Review of Systems: Positives are in bold. Constitutional: no fevers, no chills, no fatigue HEENT: no congestion Cardiovascular: no chest pain, no palpitations Respiratory: no shortness of breath, no cough Gastrointestinal: no abdominal pain, no nausea, no vomiting, no diarrhea Neurologic: no weakness, no numbness, no headaches, no dizziness Psychiatric: no significant increased stress, no depression, no anxiety Skin: no rash Musculoskeletal: + Right knee pain and weakness, no neck pain, + back pain, no arthralgia, no myalgia, no gait abnormality Physical Exam: VITALS: BP 135/82 Pulse 79 Temp (Src) 97.2 (Temporal) Wt 219 lb 12.8 oz (99.7kg) Body mass index is 36.01 kg/m? (pended). Constitutional: NAD, pleasant, alert, appears nontoxic HEENT: normocephalic, atraumatic Neck: supple, ROM of cervical spine full and equal bilaterally with pain-free end ROM Abdomen: soft, nondistended Neurologic: Alert and oriented x 3, speech is fluent, Motor strength within normal limits including hip flexion, foot plantarflexion dorsiflexion bilaterally Psychiatric: normal mood and affect, cooperative, normal speech MSK: normal curvature of cervical, thoracic, and lumbar spine, no midline bony tenderness of cervical, thoracic, or lumbar spine, no step off palpated Assessment and Plan: Encounter Diagnosis ICD-10-CM 1. Chronic pain of right knee M25.561 G89.29 2. S/P total knee arthroplasty, right Z96.651 3. Sacral back pain M53.3 4. Somatic dysfunction of thoracic region M99.02 Osteopathic manipulative treatment (OMT) 5. Somatic dysfunction of lumbar region M99.03 Osteopathic manipulative treatment (OMT) 6. Somatic dysfunction of sacral region M99.04 Osteopathic manipulative treatment (OMT) 7. Somatic dysfunction of lower extremity M99.06 Osteopathic manipulative treatment (OMT) 8. Somatic dysfunction of pelvic region M99.05 Osteopathic manipulative treatment (OMT) Patient presenting today with ongoing right knee pain after arthroplasty. She has had physical therapy but will be resuming additional therapy. OMT was performed today to improve function and reduce symptoms with good effect. After improvement in lower extremity symptoms, she then developed sacral back pain which was treated as below. This was likely due to the fact that she was compensating for her knee with her lumbosacral region. - consider looking at left knee next time as well as she reports this knee was actually worse than the right Return 1-2 months with resident clinic. Start time: 3:32pm; end time: 3:53pm Time Spent (min): 21 >50% of time spent on the date of service was dedicated to preparing to see the patient, [id number] pippa (more content not included)... [facility] Osteopathic manipulative zacarias atment (OMT)on 09-28-2023 Jane Darline DO Rachel 10/03/2023 3:31 PM Osteopathic manipulative treatment (OMT) Time/Date:09/28/2023 3:32 PM Informed Consent Consent Obtained: Verbal [place]way Protocol SIGN IN TIME OUT Consent Obtained:Verbal Body Regions: Thoracic and Lower Extremities Thoracic Technique: myofascial release, progressive inhibition of neuromusculoskeletal structures, Thoracic inlet restriction treated with myofascial release, paraspinal hypertonicity treated with soft tissue Lower Extremities Technique:balanced ligamentous tension, muscle energy, myofascial release, Bilateral IT band hypertonicity treated with myofascial release, Right tibial plateau restriction treated with myofascial release, right distal femur with dense periosteal restriction treated with old fracture technique, right patella mildly lateral treated with indirect muscle energy method, right fibular head restricted and posterior treated with balanced ligamentous tension Number of Body Regions: 1 -2 Disposition: Osteopathic manipulation tolerated well, reports subjective and objective improvement, improvement in range of motion and mechanics, instructed to increase hydration for the next 24 hours and instructed to follow up if symptoms worsen or fail to improve Comments: Please see additional notes below regarding further treatment after improvement of lower extremity [facility] CNOVon 09-26-2023 CNOV Office Visit (ORMDNA ) MOIRA SUH ([id number]) 1950 F Date Time Provider Department 09/26/23 1:30 PM NELA FERREIRA During your visit today, we recorded the following information about you: Nela Ferreira MD 10/24/2023 9:[address] SZIRAKY- POST-OP KNEE ======= Post-Op F/U Office Visit ======= Moira Suh presents today for a 9 month status post Right TKA. Post-operative recovery was uneventful. Patient's rating of condition: unchanged Comments: Patient complains that the knee feels swollen and weak Does the Pt. still experience pain? PAIN EVALUATION 09/24/2023 7670 Pain Level: 7 Pain Location: Knee-Right Description: Stabbing Duration Units: Months Frequency: Intermittent Intervention/Comfort measure: Biofeedback;Cold Functional difficulties: Stair climbing Physical Therapy: Yes Pain Medication: Non-narcotic Ambulating without assistance. Medications and Allergies reviewed and verified. ======= EXAM: ======= GEN: AANDO x3, NAD SKIN:Appropriate postop appearance RightKnee: ROM: Flexion/Extension:0 degrees to 115 degrees Pain with ROM:No Mal-alignment: No Effusion: None Tender to palpation of the medial and lateral joint line(s). Stability: Laxity to varus valgus stress in mid flexion Quad strength: normal HIP: range of motion no loss ROM NV: intact ======= IMAGING: ======= Xrays: Implants are well aligned. Implants are well fixed. There is no evidence of loosening. There is evidence of osteo-integration. There is no evidence of osteolysis. Patella is well positioned. ===== IMPRESSION/PLAN: ===== 73 year old female s/p Right TKA Slow post-operative recovery. Exam today demonstrates evidence of mid flexion instability. She has been wearing a hinged brace at this point I would recommend referral back to physical therapy for strengthening exercises Plan: 1. Refer to physical therapy 2. Continue weightbearing as tolerated 3. Follow-up for repeat clinical evaluation Nela Ferreira MD Electronic Signature Allergies As of Date: 09/26/2023 Noted Allergy Reaction ATORVASTATIN CALCIUM 02/15/2016 17 - Myalgia Comments: Caused severe myalgias to bilateral thighs and across back CODEINE 12/27/2007 1 - Mental Status Change Comments: Can hear whats going on around her but she can't wake up CRESTOR (ROSUVASTATIN CALCIUM) 02/15/2016 17 - Myalgia Comments: 20 mg caused severe myalgias to upper thighs and across back Date Reviewed: 09/26/2023 Reviewed by: Hannah Brown OCCA - Fully Assessed Reason for Visit: Follow Up [171] Knee Replacement [363] Primary Visit Diagnosis:Aftercare following right knee joint replacement surgery [Z47.1, Z96.651] Order(s):CONSULT TO PHYSICAL THERAPY [9032] Order #: [id number]: 1 FUTURE Prescriptions as of 10/24/2023 - MEDICATION, NON-DATABASE Medical Marijuana Cream - metoprolol succinate ER (TOPROL XL) 25 mg 24 hr tablet Take 1 tablet by mouth once daily. - wuayjjr-vghb-fvcny-oreg -capryl 100 mg-150 mg- 50 mg-150 mg cap Take 1 tablet by mouth twice daily. - OmegaGenics EPA-DHA 2400 (High Concentrate EPA/DHA liquid) (LearnSomething) Take one teaspoon (5 ml) 1 times daily with food - MAGNESIUM ORAL Take 135 Units by mouth once daily. Takes 4 capsules daily - ascorbic acid, vitamin C, (VITAMIN C) 500 mg tablet Take 2,000 mg by mouth once daily. - B-Complex Plus (Pure Encapsulations) - 1qD stress/energy/hormones/ detox/weight loss Take 1 capsule by mouth once daily. - CoQ10, Liposomal Ubiquinol, 200 mg cap Take 1 capsule by mouth daily with food. - cholecalciferol (VITAMIN D3) 1,000 unit tab tablet Take 1,000 Units by mouth once daily. Meds Comments as of 01/05/2023: Current per pt.09/28/15 11.2.23 - patient reports she was told that it is now okay to resume taking all supplements/meds. Problem List As Of Date 09/26/2023 Noted Resolved UTERINE LEIOMYOMA NOS [D25.9] 12/27/2007 MUCOUS POLYP OF CERVIX [N84.1] 12/27/2007 POSTMENOPAUSAL BLEEDING [N95.0] 12/27/2007 Low HDL (under 40) [E78.6] 10/07/2012 Hyperlipidemia [E78.5] 10/07/2012 Multinodular goiter [E04.2] 10/29/2012 CAD (coronary artery disease) [I25.10] 10/15/2015 H/O non-ST elevation myocardial infarction (NST*10/15/2015 S/P CABG x 3 (L-LAD, S-CX, S-RCA) 07/2015 [Z95.1]10/15/2015 Cardiomyopathy, ischemic [I25.5] 10/15/2015 03/11/2019 Moderate mitral regurgitation [I34.0] 10/15/2015 04/26/2016 Obesity [E66.9] 10/15/2015 04/12/2017 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] 04/12/2017 Dry skin [L85.3] 04/12/2017 Hair loss [L65.9] 04/12/2017 BMI 34.0-34.9,adult [Z68.34] 04/12/2017 Exposure to mercury [Z77.018] 04/12/2017 PAF (par (more content not included)... Normal [facility] Dariel 09-20-2023 CNPN Telephone (ORMDNA) MOIRA SUH ([id number]) 1950 F Date Time Provider Department 09/20/23 NELA FERREIRA During your visit today, we recorded the following information about you: Lele Maradaiga 09/20/2023 8:44 AM Signed 1st Attempt Moira Suh needs to reschedule this appointment with Dr. Ferreira because of unavailability. She should be rescheduled for specific held time. Please assist her with appointment rescheduling. If unable to do so, please verify best method of contact, and send staff message to the pool so the department may assist her. Thank you, Lele Crawley 09/21/2023 1:10 PM Signed Lvm for patient to call back and reschedule appointment on the 09/26/[address] Ferreira Allergies As of Date: 09/20/2023 Noted Allergy Reaction ATORVASTATIN CALCIUM 02/15/2016 17 - Myalgia Comments: Caused severe myalgias to bilateral thighs and across back CODEINE 12/27/2007 1 - Mental Status Change Comments: Can hear whats going on around her but she can't wake up CRESTOR (ROSUVASTATIN CALCIUM) 02/15/2016 17 - Myalgia Comments: 20 mg caused severe myalgias to upper thighs and across back Date Reviewed: 09/10/2023 Reviewed by: Mariel Lamar MA - Fully Assessed Reason for Visit: Appointment [186] Prescriptions as of 09/21/2023 - MEDICATION, NON-DATABASE Medical Marijuana Cream - metoprolol succinate ER (TOPROL XL) 25 mg 24 hr tablet Take 1 tablet by mouth once daily. - jrldhvh-etpc-sprir-oreg -capryl 100 mg-150 mg- 50 mg-150 mg cap Take 1 tablet by mouth twice daily. - OmegaGenics EPA-DHA 2400 (High Concentrate EPA/DHA liquid) (LearnSomething) Take one teaspoon (5 ml) 1 times daily with food - MAGNESIUM ORAL Take 135 Units by mouth once daily. Takes 4 capsules daily - ascorbic acid, vitamin C, (VITAMIN C) 500 mg tablet Take 2,000 mg by mouth once daily. - B-Complex Plus (Pure Encapsulations) - 1qD stress/energy/hormones/ detox/weight loss Take 1 capsule by mouth once daily. - CoQ10, Liposomal Ubiquinol, 200 mg cap Take 1 capsule by mouth daily with food. - cholecalciferol (VITAMIN D3) 1,000 unit tab tablet Take 1,000 Units by mouth once daily. Meds Comments as of 01/05/2023: Current per pt.09/28/15 11.2.23 - patient reports she was told that it is now okay to resume taking all supplements/meds. Problem List As Of Date 09/20/2023 Noted Resolved UTERINE LEIOMYOMA NOS [D25.9] 12/27/2007 MUCOUS POLYP OF CERVIX [N84.1] 12/27/2007 POSTMENOPAUSAL BLEEDING [N95.0] 12/27/2007 Low HDL (under 40) [E78.6] 10/07/2012 Hyperlipidemia [E78.5] 10/07/2012 Multinodular goiter [E04.2] 10/29/2012 CAD (coronary artery disease) [I25.10] 10/15/2015 H/O non-ST elevation myocardial infarction (NST*10/15/2015 S/P CABG x 3 (L-LAD, S-CX, S-RCA) 07/2015 [Z95.1]10/15/2015 Cardiomyopathy, ischemic [I25.5] 10/15/2015 03/11/2019 Moderate mitral regurgitation [I34.0] 10/15/2015 04/26/2016 Obesity [E66.9] 10/15/2015 04/12/2017 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] 04/12/2017 Dry skin [L85.3] 04/12/2017 Hair loss [L65.9] 04/12/2017 BMI 34.0-34.9,adult [Z68.34] 04/12/2017 Exposure to mercury [Z77.018] 04/12/2017 PAF (paroxysmal atrial fibrillation) (HCC) [I48*06/26/2017 Insulin resistance [E88.819] 07/19/2017 Vitamin D deficiency [E55.9] 09/13/2017 Former smoker [Z87.891] 12/21/2022 S/P total knee arthroplasty, right [Z96.651] 01/03/2023 Primary osteoarthritis of left knee [M17.12] 01/22/2023 Primary osteoarthritis of right knee [M17.11] 01/22/2023 Encounter Status:Closed by SAMANTHA MICHAELS on 09/21/23 Normal [facility] CNOVon 09-18-2023 CNOV Office Visit (ORMDNA ) VIKASHFERNANDAMOIRA ([id number]) 1950 F Date Time Provider Department 09/18/23 2:00 PM CAST TECH ARSHAD ORMDNA During your visit today, we recorded the following information about you: Pardeep Wyatt Cast Tech 09/18/2023 2:22 PM Addendum PT ASSESSMENT - CASTING ROOM Moira presents for Application of braces. Applied hinged wrap knee supports to Bilateral knees Patient has been instructed in Care of braces.. BILLED BY GURDEEP Wyatt Cast Diana Allergies As of Date: 09/18/2023 Noted Allergy Reaction ATORVASTATIN CALCIUM 02/15/2016 17 - Myalgia Comments: Caused severe myalgias to bilateral thighs and across back CODEINE 12/27/2007 1 - Mental Status Change Comments: Can hear whats going on around her but she can't wake up CRESTOR (ROSUVASTATIN CALCIUM) 02/15/2016 17 - Myalgia Comments: 20 mg caused severe myalgias to upper thighs and across back Date Reviewed: 09/10/2023 Reviewed by: Mariel Lamar MA - Fully Assessed Primary Visit Diagnosis:S/P total knee arthroplasty, right [Z96.651] Other Visit Diagnoses:Chronic pain of both knees [M25.561, M25.562, G89.29] Primary osteoarthritis of both knees [M17.0] Primary osteoarthritis of left knee [M17.12] Primary osteoarthritis of right knee [M17.11] Prescriptions as of 09/18/2023 - MEDICATION, NON-DATABASE Medical Marijuana Cream - metoprolol succinate ER (TOPROL XL) 25 mg 24 hr tablet Take 1 tablet by mouth once daily. - ldbcoqp-hxuc-imlie-oreg -capryl 100 mg-150 mg- 50 mg-150 mg cap Take 1 tablet by mouth twice daily. - OmegaGenics EPA-DHA 2400 (High Concentrate EPA/DHA liquid) (LearnSomething) Take one teaspoon (5 ml) 1 times daily with food - MAGNESIUM ORAL Take 135 Units by mouth once daily. Takes 4 capsules daily - ascorbic acid, vitamin C, (VITAMIN C) 500 mg tablet Take 2,000 mg by mouth once daily. - B-Complex Plus (Pure Encapsulations) - 1qD stress/energy/hormones/ detox/weight loss Take 1 capsule by mouth once daily. - CoQ10, Liposomal Ubiquinol, 200 mg cap Take 1 capsule by mouth daily with food. - cholecalciferol (VITAMIN D3) 1,000 unit tab tablet Take 1,000 Units by mouth once daily. Meds Comments as of 01/05/2023: Current per pt.09/28/15 11.2.23 - patient reports she was told that it is now okay to resume taking all supplements/meds. Problem List As Of Date 09/18/2023 Noted Resolved UTERINE LEIOMYOMA NOS [D25.9] 12/27/2007 MUCOUS POLYP OF CERVIX [N84.1] 12/27/2007 POSTMENOPAUSAL BLEEDING [N95.0] 12/27/2007 Low HDL (under 40) [E78.6] 10/07/2012 Hyperlipidemia [E78.5] 10/07/2012 Multinodular goiter [E04.2] 10/29/2012 CAD (coronary artery disease) [I25.10] 10/15/2015 H/O non-ST elevation myocardial infarction (NST*10/15/2015 S/P CABG x 3 (L-LAD, S-CX, S-RCA) 07/2015 [Z95.1]10/15/2015 Cardiomyopathy, ischemic [I25.5] 10/15/2015 03/11/2019 Moderate mitral regurgitation [I34.0] 10/15/2015 04/26/2016 Obesity [E66.9] 10/15/2015 04/12/2017 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] 04/12/2017 Dry skin [L85.3] 04/12/2017 Hair loss [L65.9] 04/12/2017 BMI 34.0-34.9,adult [Z68.34] 04/12/2017 Exposure to mercury [Z77.018] 04/12/2017 PAF (paroxysmal atrial fibrillation) ([facility]) [I48*06/26/2017 Insulin resistance [E88.819] 07/19/2017 Vitamin D deficiency [E55.9] 09/13/2017 Former smoker [Z87.891] 12/21/2022 S/P total knee arthroplasty, right [Z96.651] 01/03/2023 Primary osteoarthritis of left knee [M17.12] 01/22/2023 Primary osteoarthritis of right knee [M17.11] 01/22/2023 Encounter Status:Closed by PARDEEP WYATT on 09/18/23 [facility] CNPBibi 09-18-2023 CNPN Telephone (ORMDNA) MOIRA SUH ([id number]) 1950 F Date Time Provider Department 09/18/23 SAM FABIAN ORMDNA During your visit today, we recorded the following information about you: Sindhu Sainz, ILSA 09/18/2023 9:20 AM Signed Patient called asking if she can vegetable picker a TROM brace? Patient has one at home but it is +18 years old, bulky and large. She feels the newer model might be better for her. She would like to come pick it up if possible. Sindhu Sainz, ILSA 09/18/2023 9:24 AM Signed I called patient to let her know her message was received and forwarded to Elinor. I will call her back once I hear back from Elinor. Samantha Michaels 09/18/2023 9:27 AM Signed Pt called and stated that she wanted to come in to get a hinged braced I called back to the [employer]er[employer] tech and he informed me that there was no order placed I stated to pt that I could send a message back to place and order She then stated that she had previously spoken to a nurse and they said they would take care of it. She then asked again if she could come in today to get the brace and I then stated again that she can not get a brace without and order She then stated that the nurse stated she would handle it for her and then ended the call. Sam Calvin PA-C 09/18/2023 10:28 AM Signed I put in the order for a hinged knee sleeve and left a message for Moira. NISHANT Guo Colleen, RN 09/18/2023 11:42 AM Signed Spoke with patient she will try to get here by 3:30. She is driving alone and is concerned about getting from the parking lot to the office. If she cannot she will have to vegetable picker her to drop her at the door. Sindhu Sainz, ILSA 09/19/2023 2:07 PM Signed Patient did make it to vegetable picker new brace/sleeve. She was verbally thankful saying it was much more comfortable. Allergies As of Date: 09/18/2023 Noted Allergy Reaction ATORVASTATIN CALCIUM 02/15/2016 17 - Myalgia Comments: Caused severe myalgias to bilateral thighs and across back CODEINE 12/27/2007 1 - Mental Status Change Comments: Can hear whats going on around her but she can't wake up CRESTOR (ROSUVASTATIN CALCIUM) 02/15/2016 17 - Myalgia Comments: 20 mg caused severe myalgias to upper thighs and across back Date Reviewed: 09/10/2023 Reviewed by: Mariel Lamar MA - Fully Assessed Reason for Visit: Returning Patient's Call [408] Primary Visit Diagnosis:S/P total knee arthroplasty, right [Z96.651] Other Visit Diagnosis:Instability of prosthetic knee, initial encounter ([facility]) ([facility]) [T84.028A, Z96.659] Order(s):HINGED KNEE BRACE [[id number]] Order #: [id number] Prescriptions as of 09/19/2023 - MEDICATION, NON-DATABASE Medical Marijuana Cream - metoprolol succinate ER (TOPROL XL) 25 mg 24 hr tablet Take 1 tablet by mouth once daily. - cohwslw-jkii-zgiyl-oreg -capryl 100 mg-150 mg- 50 mg-150 mg cap Take 1 tablet by mouth twice daily. - OmegaGenics EPA-DHA 2400 (High Concentrate EPA/DHA liquid) (LearnSomething) Take one teaspoon (5 ml) 1 times daily with food - MAGNESIUM ORAL Take 135 Units by mouth once daily. Takes 4 capsules daily - ascorbic acid, vitamin C, (VITAMIN C) 500 mg tablet Take 2,000 mg by mouth once daily. - B-Complex Plus (Pure Encapsulations) - 1qD stress/energy/hormones/ detox/weight loss Take 1 capsule by mouth once daily. - CoQ10, Liposomal Ubiquinol, 200 mg cap Take 1 capsule by mouth daily with food. - cholecalciferol (VITAMIN D3) 1,000 unit tab tablet Take 1,000 Units by mouth once daily. Meds Comments as of 01/05/2023: Current per pt.09/28/15 11.2.23 - patient reports she was told that it is now okay to resume taking all supplements/meds. Problem List As Of Date 09/18/2023 Noted Resolved UTERINE LEIOMYOMA NOS [D25.9] 12/27/2007 MUCOUS POLYP OF CERVIX [N84.1] 12/27/2007 POSTMENOPAUSAL BLEEDING [N95.0] 12/27/2007 Low HDL (under 40) [E78.6] 10/07/2012 Hyperlipidemia [E78.5] 10/07/2012 Multinodular goiter [E04.2] 10/29/2012 CAD (coronary artery disease) [I25.10] 10/15/2015 H/O non-ST elevation myocardial infarction (NST*10/15/2015 S/P CABG x 3 (L-LAD, S-CX, S-RCA) 07/2015 [Z95.1]10/15/2015 Cardiomyopathy, ischemic [I25.5] 10/15/2015 03/11/2019 Moderate mitral regurgitation [I34.0] 10/15/2015 04/26/2016 Obesity [E66.9] 10/15/2015 04/12/2017 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] 04/12/2017 Dry skin [L85.3] 04/12/2017 Hair loss [L65.9] 04/12/2017 BMI 34.0-34.9,adult [Z68.34] 04/12/2017 Exposure to mercury [Z77.018] 04/12/2017 PAF (paroxysmal atrial fibrillation) (HCC) [I48*06/26/2017 Insulin resistance [E88.819] 07/19/2017 Vitamin D deficiency [E55.9] 09/13/2017 Former smoker [Z87.891] 12/21/2022 S/P total knee arthroplasty, right [Z96.651] 01/03/2023 Primary osteoarthritis of left knee [M17.12] 01/22/2023 Primary osteoarthritis of right knee [M17.11] 01/22/2023 (more content not included)... Normal [facility] XR Knee AP and Lateral and M erchantson 09-11-2023 IMPRESSION: Jovita JEAN BAPTISTE Churn Drill Operator: BRENNAN Transcribe Date/Time: Sep 11 2023 8:30P Dictated by : NELSON ROTH MD This examination was interpreted and the report reviewed and electronically signed by: NELSON ROTH MD on Sep 11 2023 8:30PM [facility] RAD[facility]OLOG[facility] * * *Final Report* * * DATE OF EXAM: Sep 10 2023 3:05PM TUNDE 5209 - XR KNEE 3V AP/LAT/MERCHANT RT / PROCEDURE REASON: M25.561-Right knee pain, unspecified chronicity * * * * Physician Interpretation * * * * PROCEDURE: Right knee INDICATION: Right knee pain, unspecified chronicity .Right knee pain, hx of right knee replacement TECHNIQUE: XR KNEE 3V AP/LAT/MERCHANT RT COMPARISON: 01/17/2023 FINDINGS: The total knee arthroplasty remains in satisfactory position without evidence for loosening. No periprosthetic fracture. Small joint effusion. Advanced medial joint compartment osteoarthrosis in the left knee. [facility] Provider, [facility] [place] - 09/11/2023 * * *Final Report* * * DATE OF EXAM: Sep 10 2023 3:05PM TUNDE 5209 - XR KNEE 3V AP/LAT/MERCHANT RT / PROCEDURE REASON: M25.561-Right knee pain, unspecified chronicity * * * * Physician Interpretation * * * * PROCEDURE: Right knee INDICATION: Right knee pain, unspecified chronicity .Right knee pain, hx of right knee replacement TECHNIQUE: XR KNEE 3V AP/LAT/MERCHANT RT COMPARISON: 01/17/2023 FINDINGS: The total knee arthroplasty remains in satisfactory position without evidence for loosening. No periprosthetic fracture. Small joint effusion. Advanced medial joint compartment osteoarthrosis in the left knee. IMPRESSION IMPRESSION: Stable TKA Churn Drill Operator: BRENNAN Transcribe Date/Time: Sep 11 2023 8:30P Dictated by : NELSON ROTH MD This examination was interpreted and the report reviewed and electronically signed by: NELSON ROTH MD on Sep 11 2023 8:30PM EST [facility] XR Knee AP and Lateral and M erchantsOrdered By: [facility] Provider on 09-11-2023 [facility] CNOVon 09-10-2023 CNOV Office Visit (ORMDNA ) MOIRA SUH ([id number]) 1950 F Date Time Provider Department 09/10/23 3:00 PM SAM FABIAN During your visit today, we recorded the following information about you: Sam Fabian PA-C 09/10/2023 4:25 PM Signed Ortho Knee Follow Up Note Narrative Referring Provider: No referring provider defined for this encounter. PCP: Silvestre Chance, ===== IMPRESSION/PLAN: ===== 73 year old s/p Right 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 completed on 01/02/2023. Recent Surgeries this specialty 01/02/2023 (8mo) ROBOTIC ASSISTED TOTAL KNEE ARTHROPLASTY; CPTR-ASST DIR MS PX (Right; Right) Nela Ferreira MD - Posted PAIN EVALUATION 09/10/2023 1508 Pain Level: 8 Pain Location: Knee-Right Description: Sharp;Stiffness clicking Duration Amount of Time: 2 Duration Units: Months Frequency: Intermittent Intervention/Comfort measure: Relaxation;Reposition;E xercise;Other: See comment medical marijuana cream IMPRESSION: Flexion instability, right knee PLAN: Continue current conservative treatment. Rest, Ice, Compression, Elevation PRN. Hinged knee sleeve Patient Reassurance: Patient reassured and supported. All questions answered. Follow up 4 weeks No X-Rays Needed Moira Suh presents today for a check up, complaining of right knee pain getting worse with activity over the past two months. 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) Dry Skin Hair Loss Bmi 34.0-34.9,Adult Exposure to Mercury Paf (Paroxysmal Atrial Fibrillation) (Hcc) Insulin Resistance Vitamin D Deficiency Former Smoker S/P Total Knee Arthroplasty, Right Primary Osteoarthritis of Left Knee Primary Osteoarthritis of Right Knee Status post op: BMI: There is no height or weight on file to calculate BMI. Post-operative recovery was complicated by uneventful/none. Readmission(s) since surgery (90 days post)? No ED Visits AND Hospitalizations - Last 180 days None Patient rates their condition as worsening. Does the patient still experience pain? Onset: standing, twisting and flexed . Location: Right knee. Frequency: activity limiting. Pain scale: 8. Pain character: sharp. Relieving factors: Rest and Ice. Aggravating factors: Increased activity and Stairs Post Op discharge patient location: in home. Functional Assessment is as follows: completed course of therapy. Functional difficulties: Interferes with sleep and Stair climbing. Pain Medication: marijuana cream Currently Ambulating with: a cane 03/12/2023 03/19/2023 03/26/2023 Physical Therapy Data Surgical procedure R TKA R TKA R TKA Surgical procedure date 01/02/2023 01/02/2023 01/02/2023 PROM R knee flexion 108 Degrees Therapist that will oversee plan of care Rikki Tomas, PT. Rikki Tomas, PT. Plan for next visit Progress Closed-Chain RLE Strengthening; add TRX squats. Progress closed chain LE strength; add in core exercises; measure knee flexion. Manual for swelling reduction; Progress closed chain LE strength; add in core exercises; measure knee flexion. EXAM: POST OP KNEE Right Post-Operative Knee Ambulates with a limp favoring the right. SKIN: Incision well healed. Range of motion is 0 degrees in extension and 120 degrees of flexion. Extension La degrees Pain with ROM: Yes and when moving from flexion into extension There is Mild effusion. Mal-alignment: No Tender to the palpation of Pes anserine bursa, Medial joint line, and Lateral joint line Neurovascular Status: Sensation Intact, Moves foot and ankle up AND down, Moves toes up and down, and 2+ dorsalis pedis Stability:Anterior/Post erior- Yes, stable and Varus/Valgus- increased instability in flexion Quad strength: normal Imagin. Implants are well aligned. Implants are well fixed. There is no evidence of loosening. There is evidence of osteo-integration. Patella is well positioned. Provider: Sam Fabian PA-C Completed by: Sam Fabian PA-C Allergies As of Date: 09/10/2023 Noted Allergy Reaction ATORVASTATIN CALCIUM 02/15/2016 17 - Myalgia Comments: Caused severe myalgias to bilateral thighs and across back CODEINE 12/27/2007 1 - Mental Status Change Comments: Can hear whats going on around her but she can't wake up CRESTOR (ROSUVASTATIN CALCIUM) 02/15/2016 17 - Myalgia Comments: 20 mg caused severe myalgias to upper thighs and across back Date Reviewed: 09/10/2023 Reviewed by: Mariel Lamar MA - Fully Assessed R (more content not included)... Normal [facility] XR KNEE 3V AP/LAT/MERCHANT R Ton 09-10-2023 XR KNEE 3V AP/LAT/MERCHANT RT * * *Final Report* * * DATE OF EXAM: Sep 10 2023 3:05PM TUNDE 5209 - XR KNEE 3V AP/LAT/MERCHANT RT / PROCEDURE REASON: M25.561-Right knee pain, unspecified chronicity * * * * Physician Interpretation * * * * PROCEDURE: Right knee INDICATION: Right knee pain, unspecified chronicity .Right knee pain, hx of right knee replacement TECHNIQUE: XR KNEE 3V AP/LAT/MERCHANT RT COMPARISON: 01/17/2023 FINDINGS: The total knee arthroplasty remains in satisfactory position without evidence for loosening. No periprosthetic fracture. Small joint effusion. Advanced medial joint compartment osteoarthrosis in the left knee. IMPRESSION: Stable TKA Churn Drill Operator: PSCJacki Transcribe Date/Time: Sep 11 2023 8:30P Dictated by : NELSON ROTH MD This examination was interpreted and the report reviewed and electronically signed by: NELSON ROTH MD on Sep 11 2023 8:30PM EST [id number] [facility] XR Knee AP and Lateral and M erchantson 09-10-2023 Radiology Study observation (narrative) [facility] CNOVon 09-07-2023 CNOV Office Visit (OMMS) WILLEMCullenMOIRA ([id number]) 1950 F Date Time Provider Department 09/07/23 11:15 AM DASHAWN LOWERY OMMS During your visit today, we recorded the following information about you: Temperature Pulse Blood pressure Weight 97 degrees 82/minute 158/99 98.5 kg Ammon Luna DO 09/17/2023 8:02 AM Signed Osteopathic Neuromusculoskeletal Medicine Outpatient Consult Note Name: Moira Suh Date of : 1950 Date of Exam: September 07, 2023 Referred by: Dr. Jose R Mccartney The findings and recommendations will be communicated to the referring provider via [employer] or by mail. Silvestre Chance DO is the PCP for this patient. I am seeing this patient for osteopathic neuromusculoskeletal evaluation and if indicated, osteopathic manipulative treatment, and am returning the patient to Silvestre Chance DO for primary care. CC: This is Moira Suh, a 73 year old female. Patient presents with: Knee Pain: right knee replacement, getting worst AMB ROOMING INTAKE FLOWSHEET DATA History of Present Illness: New patient here for evaluation of right knee pain right robotic total knee replacement (notes both knees have been in bad condition with osteoarthritis), had been sedentary prior, had requested pre-surgery PT but didn't get it. After surgery felt like rubber bands wound together and would pop apart behind the right knee. Swelling restricted her movement especially after PT, felt like skin was tight all the time. Iced daily overnight to help with the swelling which would help but then after PT swelling would return. Can flex her knee, able to put weight on it when standing up straight. However still can't straighten her knee fully on its own - has to push her knee backwards and that's painful. When walking and stepping forward, hears a clicking noise. Has to use her arms to help her push up when she stands, has difficulty walking up and down steps. Feels knee is weak; denies hip or thigh weakness or pain; no symptoms on the left. Initially after surgery was able to walk down the steps, then had to go sideways, now feels like she can't do the steps at all because feels like her knee would give out when she puts full weight on it when stepping up - has been 2 months since she could go up the stairs. No erythema or warmth. No calf pain. US DVT 02/2023 negative. No falls, twisting, or trauma she can recall Interventions: - Has tried FSM for knee pain and swelling and a lymphatic and nerve setting (had post-op nerve pain for about a month) - this is helpful. - had OMT, mostly fascial, has had trigger band treated. Typically OMT effects last for a couple days. Last about a month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 Work Phone: [facility] 01-18-2023 11:48-0500 Systolic blood pressure 136 mm[Hg] Lorene Kasandra MASTER OF CEREMONIES Work Phone: [facility] 01-15-2023 11:34-0500 Body temperature 98.71 [degF] Lorene Kasandra MASTER OF CEREMONIES Work Phone: [facility] 01-15-2023 11:34-0500 Diastolic blood pressure 78 mm[Hg] Lorene Kasandra MASTER OF CEREMONIES Work Phone: [facility] 01-15-2023 11:34-0500 Heart rate 77 /min Lorene Kasandra MASTER OF CEREMONIES Work Phone: [facility] 01-15-2023 11:34-0500 Respiratory rate 18 /min Lorene Kasandra MASTER OF CEREMONIES Work Phone: [facility] 01-15-2023 11:34-0500 SaO2% (BldA) [Mass fraction] 99 % Lorene Kasadnra MASTER OF CEREMONIES Work Phone: [facility] 01-15-2023 11:34-0500 Systolic blood pressure 142 mm[Hg] Lorene Kasandra MASTER OF CEREMONIES Work Phone: [facility] 01-10-2023 10:17-0500 Body temperature 97.39 [degF] Lorene Kasandra MASTER OF CEREMONIES Work Phone: [facility] 01-10-2023 10:17-0500 Diastolic blood pressure 82 mm[Hg] Lorene Kasandra MASTER OF CEREMONIES Work Phone: [facility] 01-10-2023 10:17-0500 Heart rate 66 /min Lorene Kasandra MASTER OF CEREMONIES Work Phone: [facility] 01-10-2023 10:17-0500 Respiratory rate 18 /min Lorene Kasandra MASTER OF CEREMONIES Work Phone: [facility] 01-10-2023 10:17-0500 SaO2% (BldA) [Mass fraction] 95 % Lorene Kasandra MASTER OF CEREMONIES Work Phone: [facility] 01-10-2023 10:17-0500 Systolic blood pressure 130 mm[Hg] Lorene Kasandra MASTER OF CEREMONIES Work Phone: [facility] 01-04-2023 11:38-0400 Heart rate 67 /min Renee Murphy PT Work Phone: [facility] 01-04-2023 11:38-0400 SaO2% (BldA) [Mass fraction] 97 % Renee Murphy PT Work Phone: [facility] 01-04-2023 11:04-0400 Body temperature 97.5 [degF] Renee Murphy PT Work Phone: [facility] 01-04-2023 11:04-0400 Diastolic blood pressure 70 mm[Hg] Renee Murphy PT Work Phone: [facility] 01-04-2023 11:04-0400 Systolic blood pressure 120 mm[Hg] Renee Murphy PT Work Phone: [facility] 10-04-2022 08:36-0400 Body height 166.4 cm Pacc 1 Work Phone: [facility] 10-04-2022 08:36-0400 Body temperature 98.29 [degF] Pacc 1 Work Phone: [facility] 10-04-2022 08:36-0400 Body weight 94.8 kg Pacc 1 Work Phone: [facility] 10-04-2022 08:36-0400 Diastolic blood pressure 94 mm[Hg] Pacc 1 Work Phone: [facility] 10-04-2022 08:36-0400 Heart rate 68 /min Pacc 1 Work Phone: [facility] 10-04-2022 08:36-0400 Respiratory rate 16 /min Pacc 1 Work Phone: [facility] 10-04-2022 08:36-0400 SaO2% (BldA) [Mass fraction] 97 % Pacc 1 Work Phone: [facility] 10-04-2022 08:36-0400 Systolic blood pressure 146 mm[Hg] Pacc 1 Work Phone: [facility] 03-23-2022 14:42-0500 Body height 166.4 cm Danielle Mart APRN.OVEN BAKER Work Phone: [facility] 03-23-2022 14:42-0500 Body weight 95.98 kg Danielle Mart APRN.OVEN BAKER Work Phone: [facility] 03-23-2022 14:42-0500 Diastolic blood pressure 78 mm[Hg] Danielle Mart APRN.OVEN BAKER Work Phone: [facility] 03-23-2022 14:42-0500 Heart rate 83 /min Danielle Mart APRN.OVEN BAKER Work Phone: [facility] 03-23-2022 14:42-0500 Respiratory rate 16 /min Danielle Mart APRN.OVEN BAKER Work Phone: [facility] 03-23-2022 14:42-0500 SaO2% (BldA) [Mass fraction] 98 % 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 Work Phone: [facility] 03-23-2022 14:42-0500 Systolic blood pressure 143 mm[Hg] 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 Work Phone: [facility] 11-23-2021 14:13-0400 Body weight 94.98 kg Kianna Jerald SUPERVISOR SIGN SH[employer].OVEN BAKER Work Phone: [facility] 11-23-2021 14:13-0400 Diastolic blood pressure 80 mm[Hg] Kianna Jerald SUPERVISOR SIGN SHOP.OVEN BAKER Work Phone: [facility] 11-23-2021 14:13-0400 Heart rate 72 /min Kianna Jerald SUPERVISOR SIGN SH[employer].OVEN BAKER Work Phone: [facility] 11-23-2021 14:13-0400 SaO2% (BldA) [Mass fraction] 100 % Kianna Jerald SUPERVISOR [employer].OVEN BAKER Work Phone: [facility] 11-23-2021 14:13-0400 Systolic blood pressure 138 mm[Hg] Kianna Jerald SUPERVISOR [employer]IGN [employer].OVEN BAKER Work Phone: [facility] 10-26-2021 13:58-0400 Body height 166.4 cm Sam [place] DO Work Phone: [facility] 10-26-2021 13:58-0400 Body weight 94.8 kg Sam [place] DO Work Phone: [facility] 10-26-2021 13:58-0400 Diastolic blood pressure 80 mm[Hg] Sam [place] DO Work Phone: [facility] 10-26-2021 13:58-0400 Heart rate 71 /min Sam [place] DO Work Phone: [facility] 10-26-2021 13:58-0400 SaO2% (BldA) [Mass fraction] 98 % Sam [place] DO Work Phone: [facility] 10-26-2021 13:58-0400 Systolic blood pressure 136 mm[Hg] Sam Feldman DO Work Phone: [facility] Encounters Encounter Date Encounter Type Care Provider Facility Start: 08-20-2024 End: 08-20-2024 Home visit Lorene Slaughter MASTER OF CEREMONIES Work Phone: [facility] Comment on above: MASTER OF CEREMONIES ROUTINE Start: 08-19-2024 End: 08-19-2024 Home visit Dai Salgado RN Work Phone: [facility] Comment on above: CARE COORDINATION Start: 08-18-2024 End: 08-18-2024 Home visit Rajesh Ignacio PT Work Phone: [facility] Comment on above: PT ROUTINE Start: 08-17-2024 End: 08-17-2024 Telephone encounter Rajesh Ignacio PT Work Phone: [facility] Comment on above: Home Care (Pt would like a new silverlon) Start: 08-16-2024 End: 08-16-2024 Telephone encounter Rajesh Ignacio PT Work Phone: [facility] Comment on above: Home Care (Post op d ressing saturated ) Start: 08-16-2024 End: 08-16-2024 Home visit Rajesh Ignacio PT Work Phone: [facility] Comment on above: IDT CLINICAL TEAM CO LLABORATION PT SOC Start: 08-15-2024 End: 08-15-2024 Telephone encounter Harlan Aviles PSS [facility] Comment on above: Home Care (Confirmat ion call) Start: 08-14-2024 End: 08-15-2024 ambulatory [facility] Facility:[facility] Start: 08-11-2024 End: 08-11-2024 Telephone encounter Nela Ferreira MD Work Phone: Orthopaedics Comment on above: Patient Update Start: 08-08-2024 End: 08-08-2024 ambulatory NELA FERREIRA Facility:[facility] Start: 08-08-2024 Encounter for other preprocedural examination NELA FERREIRA [facility] Start: 08-08-2024 End: 08-08-2024 Admission to establishment Pac [place] 1 Work Phone: Pre Anesthesia Start: 08-08-2024 End: 08-08-2024 Anesthesia consultation [facility] Michelle 1 Work Phone: Pre Anesthesia Comment on above: Pre-op evaluation (P rimary Dx); Hyperlipidemia, unspecified hyperlipidemia type; Coronary artery disease involving [place] coronary artery of [place] heart without angina pectoris; PAF (paroxysmal atrial fibrillation) ([facility]); Multinodular goiter; BMI 37.0-37.9, adult; Spider bite wound, undetermined intent, subsequent encounter; Primary osteoarthritis of left knee Start: 08-08-2024 End: 08-08-2024 Preprocedural examination done [facility] Michelle 1 Work Phone: [facility] Work Phone: Start: 07-31-2024 End: 08-01-2024 Telephone encounter Nela Ferreira MD Work Phone: Orthopaedics Comment on above: Patient Question Start: 07-30-2024 End: 07-30-2024 Office outpatient visit 15 minutes Sandy Merida APRN.CNP Work Phone: Family [facility] Comment on above: Urticaria (Primary D x); Spider bite wound, accidental or unintentional, initial encounter; Essential (primary) hypertension; Primary osteoarthritis of left knee Start: 07-30-2024 End: 07-30-2024 ambulatory SILVESTRE CHANCE Facility:[facility] Start: 07-29-2024 End: 07-29-2024 Telephone encounter Sandy Merida APRN.CNP Work Phone: [facility] [place] Comment on above: Patient Update; Appo intment Start: 07-18-2024 End: 07-18-2024 ambulatory NELA FERREIRA Facility:[facility] Start: 07-18-2024 End: 07-18-2024 Subsequent hospital visit by physician Ct [facility] Radiology Comment on above: Primary osteoarthrit is of left knee [M17.12] Start: 07-17-2024 End: 07-17-2024 ambulatory SILVESTRE L CHANCE Facility:[facility] Start: 07-17-2024 End: 07-17-2024 Patient encounter procedure Amber Lambertbritton MONTESOVEN BAKER Work Phone: Cardiology Comment on above: Coronary artery dise ase involving [place] coronary artery of [place] heart without angina pectoris (Primary Dx); PAF (paroxysmal atrial fibrillation) (HCC) Start: 07-16-2024 End: 07-16-2024 Telemedicine consultation with patient Facundo Temple SALLY Work Phone: [facility] [place] Start: 07-16-2024 End: 07-16-2024 ambulatory Facundo Temple APRN.OVEN BAKER Work Phone: [facility] Comment on above: 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 Start: 07-11-2024 End: 07-11-2024 Subsequent hospital visit by physician [employer] [facility] (I-Stat/1.5t) Work Phone: Radiology Comment on above: Benign neoplasm of m eninges (HCC) [D32.9] Start: 06-30-2024 End: 06-30-2024 ambulatory SILVESTRE L CHANCE Facility:[facility] Start: 06-26-2024 End: 06-26-2024 ambulatory SILVESTRE L CHANCE Facility:[facility] Start: 06-10-2024 End: 06-10-2024 ambulatory DYLAN LIANG Facility:[facility] Start: 06-10-2024 End: 06-10-2024 Office outpatient visit 15 minutes Dylan Liang DO Work Phone: [facility] Comment on above: Chronic pain of left knee (Primary Dx); Chronic left-sided low back pain without sciatica; Somatic dysfunction of head region; Somatic dysfunction of spine, lumbar; Somatic dysfunction of pelvis region; Somatic dysfunction of lower extremity; Somatic dysfunction of sacral spine; Somatic dysfunction of abdominal region; Somatic dysfunction of rib; Cervical (neck) region somatic dysfunction Start: 06-06-2024 End: 06-06-2024 E-mail encounter from caregiver Amber Nash APRN.CNP Work Phone: Cardiology Start: 06-06-2024 End: 06-06-2024 ambulatory Amber Nash APRN.CNP Work Phone: Cardiology Comment on above: cardiometabolic food plan Start: 06-06-2024 End: 06-06-2024 Patient encounter procedure Amber Nash APRN.CNP Work Phone: Cardiology Comment on above: S/P CABG x 3 (L-LAD, S-CX, S-RCA) 07/2015 (Primary Dx); Hyperlipidemia, unspecified hyperlipidemia type Start: 05-27-2024 End: 05-27-2024 Admission to same day surgery center Анна Perez PT, DPT [facility] Comment on above: Chronic bilateral lo w back pain without sciatica (Primary Dx); Aftercare following right knee joint replacement surgery; Chronic pain of right knee Start: 05-27-2024 End: 05-27-2024 ambulatory VIKASH Masters PTswick [facility] Start: 05-19-2024 End: 05-19-2024 Telephone encounter Danielle Mart APRN.CNP Work Phone: Cardiology Start: 05-06-2024 End: 05-06-2024 Admission to same day surgery center Анна Perez PT, DPT [facility] Comment on above: Chronic bilateral lo w back pain without sciatica (Primary Dx); Aftercare following right knee joint replacement surgery; Chronic pain of right knee Start: 05-06-2024 End: 05-06-2024 ambulatory Анна Perez PT, DPT [facility] Start: 04-24-2024 End: 05-06-2024 Telephone encounter Анна Perez PT [facility] Comment on above: Physical Therapy Start: 04-23-2024 End: 04-23-2024 Admission to same day surgery center Анна Perez PT [facility] Comment on above: Chronic pain of righ t knee (Primary Dx); Aftercare following right knee joint replacement surgery; Chronic bilateral low back pain, unspecified whether sciatica present Start: 04-23-2024 End: 04-23-2024 ambulatory Анна Perez [facility] Start: 04-11-2024 End: 04-11-2024 Office outpatient visit 15 minutes Dylan Liang DO Work Phone: [facility] Comment on above: Chronic pain of left knee (Primary Dx); Chronic left-sided low back pain without sciatica; Somatic dysfunction of spine, thoracic; Somatic dysfunction of upper extremity; Somatic dysfunction of spine, lumbar; Somatic dysfunction of sacral spine; Somatic dysfunction of lower extremity; Somatic dysfunction of abdominal region Start: 04-11-2024 End: 04-11-2024 ambulatory DYLAN LIANG Facility:[facility] Start: 04-03-2024 End: 04-03-2024 Patient encounter procedure Eren Coyle DO Work Phone: Orthopaedics Comment on above: Primary osteoarthrit is of left knee (Primary Dx); Anemia, unspecified type Start: 04-03-2024 End: 04-03-2024 ambulatory SILVESTRE CHANCE Facility:[facility] Start: 04-03-2024 End: 04-03-2024 Subsequent hospital visit by physician [facility] [facility] Comment on above: Pain [R52] Start: 03-07-2024 End: 03-11-2024 Orders Only Eren Coyle DO Work Phone: [facility] [place] Comment on above: Pain (Primary Dx) Patient Question Start: 03-04-2024 End: 03-04-2024 Office outpatient visit 25 minutes Melinda Tellez DO Work Phone: [facility] Comment on above: Chronic pain of left knee (Primary Dx); Chronic left-sided low back pain without sciatica; Chronic pain of right knee; S/P total knee arthroplasty, right; Somatic dysfunction of lumbar region; Somatic dysfunction of sacral region; Somatic dysfunction of lower extremities; Somatic dysfunction of abdominal region Start: 03-04-2024 End: 03-04-2024 ambulatory MELINDA TELLEZ Facility:[facility] Start: 02-14-2024 End: 02-14-2024 Admission to same day surgery center Анна Perez , [facility] Comment on above: Chronic pain of righ t knee (Primary Dx); Aftercare following right knee joint replacement surgery Start: 02-14-2024 End: 02-14-2024 ambulatory Анна Perez PT [facility] Start: 02-13-2024 End: 02-13-2024 ambulatory Silvestre Chance DO Work Phone: [facility] Comment on above: DO for knee repl acement Start: 02-12-2024 End: 02-29-2024 Telephone encounter Анна Perez PT [facility] Comment on above: Appointment Start: 01-30-2024 End: 01-30-2024 Admission to same day surgery center Анна Perez PT, [facility] Comment on above: Aftercare following right knee joint replacement surgery (Primary Dx); Chronic pain of right knee Start: 01-30-2024 End: 01-30-2024 ambulatory Анна Perez PT, [facility] Start: 01-02-2024 End: 01-02-2024 ambulatory SILVESTRE CHANCE Facility:[facility] Start: 01-02-2024 End: 01-02-2024 Patient encounter procedure Silvestre Chance DO Work Phone: [facility] [place] Comment on above: Medicare annual well ness visit, subsequent (Primary Dx); Dysuria; Hyperlipidemia, unspecified hyperlipidemia type; Elevated lipoprotein(a); Myalgia; Vitamin D deficiency; Hyperglycemia; Actinic keratosis Start: 12-26-2023 End: 12-26-2023 ambulatory NELA FERREIRA Facility:[facility] Start: 12-26-2023 End: 12-26-2023 Patient encounter procedure Nela Ferreira MD Work Phone: Orthopaedics Comment on above: Aftercare following right knee joint replacement surgery (Primary Dx) Start: 12-19-2023 End: 12-20-2023 Telephone encounter Silvestre Chance DO Work Phone: [facility] [place] Comment on above: Orders Start: 11-15-2023 End: 11-15-2023 Telephone encounter Self [facility] Comment on above: Appointment Start: 11-13-2023 End: 11-13-2023 Office outpatient visit 15 minutes Melinda Tellez DO Work Phone: [facility] Comment on above: Chronic pain of righ t knee (Primary Dx); S/P total knee arthroplasty, right; Chronic pain of left knee; Somatic dysfunction of lower extremities; Somatic dysfunction of thoracic region Start: 11-13-2023 End: 11-13-2023 ambulatory MELINDA TELLEZ Facility:[facility] Start: 10-26-2023 End: 10-26-2023 Patient encounter procedure Nela Ferreira MD Work Phone: Orthopaedics Comment on above: Aftercare following right knee joint replacement surgery (Primary Dx) Start: 10-26-2023 End: 10-26-2023 ambulatory NELA FERREIRA Facility:[facility] Start: 10-18-2023 End: 10-18-2023 Admission to same day surgery center [facility] Comment on above: Aftercare following right knee joint replacement surgery (Primary Dx) Start: 10-18-2023 End: 10-18-2023 ambulatory [facility] Start: 10-09-2023 End: 10-09-2023 Admission to same day surgery center Thu Scott PT Work Phone: [facility] Comment on above: Aftercare following right knee joint replacement surgery Start: 10-09-2023 End: 10-09-2023 ambulatory Thu Scott PT Work Phone: [facility] Start: 09-28-2023 End: 09-28-2023 ambulatory DASHAWN SEBASTIÁN Facility:[facility] Start: 09-28-2023 End: 09-28-2023 Office outpatient visit 25 minutes Dashawn Sebastián DO Work Phone: [facility] Comment on above: Chronic pain of righ t knee (Primary Dx); S/P total knee arthroplasty, right; Sacral back pain; Somatic dysfunction of thoracic region; Somatic dysfunction of lumbar region; Somatic dysfunction of sacral region; Somatic dysfunction of lower extremity; Somatic dysfunction of pelvic region Start: 09-27-2023 ambulatory Lele watters [facility] [place] Start: 09-27-2023 Patient encounter procedure Da son [facility] Comment on above: Population Health Na vigation Outreach (Sam Martinez [facility]) Start: 09-26-2023 End: 09-26-2023 ambulatory NELA FERREIRA Facility:[facility] Start: 09-26-2023 End: 09-26-2023 Patient encounter procedure Nela Ferreira MD Work Phone: Orthopaedics Comment on above: Aftercare following right knee joint replacement surgery (Primary Dx) Start: 09-20-2023 Telephone encounter Nela Ferreira MD Work Phone: Orthopaedics Comment on above: Appointment Start: 09-18-2023 End: 09-18-2023 ambulatory SILVESTRE CHANCE Facility:[facility] Start: 09-18-2023 End: 09-18-2023 Patient encounter procedure Tha Arshad Work Phone: Orthopaedics Comment on above: S/P total knee arthr oplasty, right (Primary Dx); Chronic pain of both knees; Primary osteoarthritis of both knees; Primary osteoarthritis of left knee; Primary osteoarthritis of right knee Start: 09-18-2023 Telephone encounter Sam griffin PA-C Work Phone: Orthopaedics Comment on above: Returning Patient's Call Start: 09-10-2023 End: 09-10-2023 Office outpatient visit 15 minutes Sam Fabian PA-C Work Phone: Orthopaedics Comment on above: S/P total knee arthr oplasty, right (Primary Dx); Pes anserinus bursitis of right knee; Instability of prosthetic knee, initial encounter ([facility]) ([facility]) Start: 09-10-2023 End: 09-10-2023 ambulatory SAM FABIAN Facility:[facility] Start: 09-10-2023 End: 09-10-2023 Subsequent hospital visit by physician [employer] [facility] [place] Mac[place] Work Phone: Radiology Comment on above: Right knee pain, uns pecified chronicity [M25.561] Start: 09-07-2023 End: 09-07-2023 Office outpatient new 45 minutes Dashawn Lowery DO Work Phone: [facility] Comment on above: Chronic pain of righ t knee (Primary Dx); S/P total knee arthroplasty, right; Hamstring tightness; Somatic dysfunction of thoracic region; Somatic dysfunction of lumbar region; Somatic dysfunction of sacral region; Somatic dysfunction of pelvic region; Somatic dysfunction of lower extremity Start: 09-07-2023 End: 09-07-2023 ambulatory DASHAWN LOWERY Facility:[facility] Start: 09-04-2023 Orders Only Sam Fabian PA-C Work Phone: Orthopaedics Comment on above: Right knee pain, uns pecified chronicity (Primary Dx) Start: 08-28-2023 Refill Sam Feldman DO Work Phone: Cardiology Comment on above: Refill Request Start: 08-17-2023 Telephone encounter Nela Ferreira MD Work Phone: Orthopaedics Comment on above: Patient Update Start: 08-03-2023 Telephone encounter Silvestre ruvalcaba DO Work Phone: [facility] [place] Comment on above: Patient Request; Pat ient Update Start: 07-26-2023 End: 07-27-2023 Patient encounter procedure Sonia Ibarra MD Work Phone: [facility] Comment on above: Meningioma (HCC); Abnormal CT scan of head; Acute confusion Start: 07-23-2023 ambulatory Allison Andrew RN Work Phone: [facility] Comment on above: appt with Dr. Geovanni brandon Start: 07-23-2023 E-mail encounter fro m caregiver Allison Andrew RN Work Phone: [facility] Start: 07-23-2023 Telephone encounter Kayla hidalgo SUPERVISOR S[employer] SHOP.OVEN BAKER Work Phone: [facility] [place] Comment on above: Results Start: 07-20-2023 ambulatory KAYLA SMITH Facilit y:[facility] Start: 07-20-2023 Telephone encounter Self [facility] Comment on above: Triage (Phone/Referr al) Results Start: 07-20-2023 End: 07-20-2023 Subsequent hospital visit by physician [facility] (1.5t) [facility] Comment on above: Meningioma (HCC) [D3 2.9] Start: 07-19-2023 Telephone encounter Kayla hidalgo SUPERVISOR SIGN SHOP.OVEN BAKER Work Phone: [facility] [place] Comment on above: CT brain results Start: 07-18-2023 ambulatory [facility] [place] Start: 07-18-2023 Patient encounter procedure Chiqui everett [facility] [place] Comment on above: Population Health Na vigation Outreach ([place] AWV/HCC and care gaps ) Start: 07-18-2023 Telephone encounter Silvestre ruvalcaba DO Work Phone: [facility] [place] Comment on above: Patient Update; [facility] cation Request Start: 07-17-2023 End: 07-17-2023 Subsequent hospital visit by physician Ct [facility] Comment on above: Acute confusion [R41 .0] Start: 07-11-2023 ambulatory Silvestre L Garri son DO Work Phone: [facility] [place] Start: 07-04-2023 ambulatory Kayla Veloz SUPERVISOR S[employer]OP.OVEN BAKER Work Phone: [facility] Comment on above: test reults Start: 07-02-2023 End: 07-02-2023 Patient encounter procedure Kayla Veloz SUPERVISOR S[employer].OVEN BAKER Work Phone: [facility] [place] Comment on above: Hyperlipidemia, unsp ecified hyperlipidemia type (Primary Dx); Acute confusion; Elevated lipoprotein(a); Elevated blood lead level; Transient cerebral ischemia, unspecified type Start: 06-30-2023 ambulatory Silvestre hidalgo DO Work Phone: [facility] Comment on above: Memory Loss; confusi on Start: 06-30-2023 Telephone encounter Silvestre Cesia Kebede basilradha DO Work Phone: [facility] Comment on above: Erroneous encounter- disregard Start: 06-24-2023 Orders Only Jose R Mccartney DO Work Phone: [facility] [place] Comment on above: Screening for lead e xposure (Primary Dx) Start: 02-15-2023 End: 02-15-2023 Office outpatient visit 15 minutes Luli White APRN.DELIVERY DRIVER/SUPERVISOR Work Phone: [facility] [place] Comment on above: Pain and swelling of right lower leg (Primary Dx) Start: 02-15-2023 Telephone encounter Silvestre ruvalcaba DO Work Phone: [facility] [place] Comment on above: Calf Swelling Start: 02-15-2023 End: 02-15-2023 ambulatory Rikki Thom PT Work Phone: [facility] Comment on above: S/P total knee arthr oplasty, right (Primary Dx) Start: 02-12-2023 End: 02-12-2023 ambulatory Rikki Thom PT Work Phone: [facility] Comment on above: S/P total knee arthr oplasty, right (Primary Dx) Start: 02-09-2023 End: 02-09-2023 ambulatory Rikki Thom PT Work Phone: [facility] Comment on above: S/P total knee arthr oplasty, right (Primary Dx) Start: 02-08-2023 End: 02-08-2023 Patient encounter procedure Isatu Smith PA-C Work Phone: Dermatology Comment on above: AK (actinic keratosi s) (Primary Dx) Start: 02-06-2023 End: 02-06-2023 ambulatory Rikkiwilliams Tomas PT Work Phone: [facility] Comment on above: S/P total knee arthr oplasty, right (Primary Dx) Start: 02-01-2023 End: 02-01-2023 ambulatory Rikkiwilliams Tomas PT Work Phone: [facility] Comment on above: S/P total knee arthr oplasty, right (Primary Dx) Start: 01-24-2023 End: 01-24-2023 ambulatory Rikki Tomas PT Work Phone: [facility] Comment on above: S/P total knee arthr oplasty, right (Primary Dx) Start: 01-22-2023 End: 01-22-2023 ambulatory Rikkiwilliams Tomas PT Work Phone: [place] [facility] Comment on above: Primary osteoarthrit is of right knee (Primary Dx) Start: 01-19-2023 End: 01-19-2023 Home visit Rajesh Ignacio PT Work Phone: [facility] Comment on above: PT AGENCY DC W VISIT Start: 01-18-2023 End: 01-18-2023 Home visit Lorene Slaughter MASTER OF CEREMONIES Work Phone: [facility] Comment on above: MASTER OF CEREMONIES ROUTINE Start: 01-17-2023 End: 01-17-2023 Patient encounter procedure Isidro Carranza PA-C Work Phone: Orthopaedics Comment on above: S/P total knee arthr oplasty, right (Primary Dx) Start: 01-17-2023 End: 01-17-2023 Subsequent hospital visit by physician [facility] [address] Work Phone: Radiology Comment on above: Right knee pain, uns pecified chronicity [M25.561] Start: 01-15-2023 End: 01-15-2023 Home visit Lorene Slaughter MASTER OF CEREMONIES Work Phone: [facility] Comment on above: MASTER OF CEREMONIES ROUTINE Start: 01-10-2023 End: 01-10-2023 Home visit Lorene Slaughter MASTER OF CEREMONIES Work Phone: [facility] Comment on above: MASTER OF CEREMONIES ROUTINE Start: 01-04-2023 End: 01-04-2023 Home visit Renee Murphy PT Work Phone: [facility] Comment on above: PT SOC Start: 01-03-2023 Telephone encounter Kermit oliva PSS [facility] Comment on above: Home Care (Confirmat ion Call) Start: 12-21-2022 Telephone encounter Iliana Ellis APRN.OVEN BAKER Work Phone: Pre Anesthesia Comment on above: Cardiac Clearance Start: 12-19-2022 End: 12-19-2022 Patient encounter procedure Renee Chavez MD Work Phone: Ophthalmology Comment on above: Post-operative state (Primary Dx) Start: 12-15-2022 End: 12-15-2022 Patient encounter status [facility] Start: 12-15-2022 End: 12-15-2022 Subsequent hospital visit by physician [facility] Comment on above: Primary osteoarthrit is of right knee [M17.11] Start: 12-14-2022 Telephone encounter Nela Ferreira MD Work Phone: [address] Comment on above: Pre-Op Teaching Start: 12-08-2022 Telephone encounter Silvestre ruvalcaba DO Work Phone: [facility] [place] Comment on above: Patient Question Start: 11-30-2022 End: 11-30-2022 Subsequent hospital visit by physician [facility] 2 Work Phone: Molecular Imaging Comment on above: Encounter for screen ing for cardiovascular disorders [Z13.6] Coronary artery dise ase involving [place] coronary artery of [place] heart without angina pectoris [I25.10] Start: 11-27-2022 Patient encounter status Hansel Ferreira MD Work Phone: [facility] Work Phone: Start: 11-27-2022 Telephone encounter Nela Ferreira MD Work Phone: Orthopaedics Comment on above: Question Start: 11-13-2022 Telephone encounter Nela Ferreira MD Work Phone: Orthopaedics Comment on above: Appointment Start: 11-09-2022 ambulatory Alecia Ramos [employer] Comment on above: Population Health Na vigation Outreach ([place] Care Gap ) Start: 11-03-2022 End: 11-03-2022 Patient encounter procedure Natalya Andrae ZAVALA Work Phone: Ophthalmology Comment on above: Post-operative state (Primary Dx) Start: 11-03-2022 Telephone encounter Nela Ferreira MD Work Phone: Orthopaedics Comment on above: Patient Question Start: 11-01-2022 ambulatory Allison Fox RN Interna l Medicine [facility] Comment on above: Blood Management Start: 10-30-2022 ambulatory Sam Feldman DO Work Phone: Cardiology Comment on above: NM stress test Start: 10-27-2022 Telephone encounter Lu cheung PA-C Work Phone: Ophthalmology Comment on above: Post Op Call Start: 10-16-2022 Orders Only Nela last MD Work Phone: Orthopaedics Comment on above: Primary osteoarthrit is of left knee (Primary Dx) eyelid surgery [employer] T[employer] - O ther nuclear stress test Start: 10-10-2022 Orders Only Sam Feldman DO Work Phone: Cardiology Comment on above: Encounter for screen ing for cardiovascular disorders (Primary Dx) Start: 10-06-2022 End: 10-06-2022 Subsequent hospital visit by physician [facility] [address] Work Phone: Radiology Comment on above: Pain [R52] Start: 10-06-2022 Admission [facility] Renee Cox RN Ophthalmology Comment on above: Medication/supplemen t hold prior to eye surgery Start: 10-06-2022 E-mail encounter leslie ortiz caregiver Renee Cox RN [facility] Start: 10-06-2022 Telephone encounter Sam Feldman DO Work Phone: Cardiology Comment on above: Patient Question (Bl ood pressure) Start: 10-04-2022 End: 10-04-2022 Admission to [facility] [place] [facility] Work Phone: [facility] Start: 10-04-2022 End: 10-04-2022 ambulatory Pacc [place] [facility] Work Phone: Pre Anesthesia Comment on above: Preoperative examina tion (Primary Dx); PAF (paroxysmal atrial fibrillation) (HCC); Multinodular goiter; BMI 34.0-34.9,adult Start: 10-04-2022 End: 10-04-2022 Preprocedural examination done Pac [place] [facility] Work Phone: [facility] Work Phone: Start: 09-12-2022 End: 09-12-2022 Patient encounter procedure Renee Chavez MD Work Phone: Ophthalmology Comment on above: Dermatochalasis of b oth upper eyelids (Primary Dx); Myogenic ptosis of bilateral eyelids Start: 09-11-2022 ambulatory Jose R Cavazos) [facility] [place] Comment on above: Population Health Na vigation Outreach ([place] care gap) Start: 08-29-2022 Refill Sam Feldman DO Work Phone: Cardiology Comment on above: Refill Request Start: 08-02-2022 ambulatory Silvestre hidalgo DO Work Phone: [facility] [place] Start: 07-05-2022 Orders Only Liang Rivera MD Work Phone: Orthopaedics Comment on above: Right knee pain, uns pecified chronicity (Primary Dx) Start: 06-26-2022 ambulatory Alecia Lear [facility] Comment on above: Population Health Na vigation Outreach ([place] Care Gap ) Start: 06-05-2022 End: 06-05-2022 Patient encounter procedure Azalea Álvarez PA-C Work Phone: Orthopaedics Comment on above: Primary osteoarthrit is of both knees (Primary Dx); Chronic pain of both knees Start: 04-21-2022 Telephone encounter Mirella Osborne RN Cardiology Lab Comment on above: Reminder Call Start: 04-11-2022 ambulatory Chiqui Pascualmons [facility] [place] Comment on above: Population Health Na vigation Outreach (Care Gaps) Start: 03-23-2022 End: 03-23-2022 Patient encounter procedure Danielle Mart APRN.OVEN BAKER Work Phone: Cardiology Comment on above: Palpitations (Primar y Dx); Postoperative atrial fibrillation (HCC); Coronary artery disease involving [place] coronary artery of [place] heart without angina pectoris; Pure hypercholesterolemia; S/P CABG x 3 (L-LAD, S-CX, S-RCA) 07/2015 Start: 03-22-2022 Telephone encounter Danielle Mart APRN.OVEN BAKER Work Phone: Cardiology Comment on above: Patient Question Start: 03-15-2022 Telephone encounter Zeb Pedraza RN Cardiology Comment on above: Results Start: 12-08-2021 ambulatory Ilalaisha Sextonhankbrynn [facility] [place] Comment on above: Population Health Na vigation Outreach ([place] Attribution /) Start: 11-23-2021 End: 11-23-2021 Patient encounter procedure Kianna Marques APRN.OVEN BAKER Work Phone: [facility] Comment on above: Vaginal atrophy (Fartun isatu Dx) Start: 10-26-2021 End: 10-26-2021 Patient encounter procedure Sam Feldman DO Work Phone: Cardiology Comment on above: Pure hypercholestero lemia (Primary Dx); Coronary artery disease involving [place] coronary artery of [place] heart without angina pectoris Start: 09-28-2021 [facility] [place] Comment on above: Population Health Na vigation Outreach ([place] Care Gaps ) Start: 09-26-2021 Telephone encounter Sam Feldman DO Work Phone: Cardiology Comment on above: Patient Question Start: 08-31-2021 ambulatory Silvestre hidalgo DO Work Phone: [facility] [place] Start: 08-26-2021 Refill Sam Feldman DO Work Phone: Cardiology Comment on above: Refill Request Start: 07-11-2021 End: 07-11-2021 Subsequent hospital visit by physician [facility] [place] Work Phone: Radiology Comment on above: Pain [R52] Start: 06-26-2017 End: 06-26-2017 Ambulatory GAYLA CHRISSIE Facility:[facility] Procedures Date Procedure Procedure Detail Performing Clinician Start: 07-11-2024 Mri brain brain stem w/o w/contrast material Sonia Ibarra MD Work Phone: Start: 06-30-2024 Antibody screen NELA FERREIRA Comment on above: Order Comment: Speci men Type: BLOOD SPECIMENOrdering Facility: [facility] Address: [address] [place] [address] Performed By: #### T [id number] ####CC [facility] BLOOD BANKCLIA [id number] [place] [address] [place] Start: 06-10-2024 Osteopathic manipula tive tx 7-8 body regions Dylan Rubinson DO Work Phone: Start: 04-11-2024 Osteopathic manipula tive tx 5-6 body regions Dylan Rubinson DO Work Phone: Start: 04-03-2024 Radiologic exam knee complete 4/more views Eren Coyle DO Work Phone: Start: 03-04-2024 Osteopathic manipula tive tx 3-4 body regions Melinda Tellez DO Work Phone: Start: 01-02-2024 Urnls dip stick/tabl et rgnt auto w/o microscopy Silvestre Chance DO Work Phone: Start: 11-13-2023 Osteopathic manipula tive tx 1-2 body regions Melinda Tellez DO Work Phone: Start: 09-28-2023 Osteopathic manipula tive tx 1-2 body regions Dashawn Thakuri DO Work Phone: Start: 09-10-2023 Radiologic examinati on knee 3 views Sam Fabian PA-C Work Phone: Start: 09-07-2023 Osteopathic manipula tive tx 5-6 body regions Dashawn Zamorashi DO Work Phone: Start: 01-17-2023 Radiologic examinati on knee 3 views Isidro Carranza PA-C Work Phone: Start: 12-15-2022 Ct lower extremity w /o contrast material Sam Fabian PA-C Work Phone: Start: 11-30-2022 Myocardial spect mul tiple studies Sam Feldman DO Work Phone: Start: 10-06-2022 Radiologic exam knee complete 4/more views Nela Ferreira MD Work Phone: Start: 09-12-2022 Visual field xm uni/ bi w/interp intermed exam Salenanatalyadiandra Andrae SUPERVISOR SIGN SHOP.OVEN BAKER Work Phone: Start: 03-13-2022 Lipid 1996 panel - S [facility] or [facility] Work Phone: Start: 07-11-2021 Radiologic exam knee complete 4/more views Azalea Álvarez PA-C Work Phone: Start: 12-20-2018 Adult depression scr eening assessment [employer] Work Phone: Start: 12-20-2018 Colonoscopy [facility] Work Phone: Start: 12-20-2018 Mammography [facility] Work Phone: Start: 10-15-2015 History of coronary artery bypass grafting S/P CABG x 3 (L-LAD, S-CX, S-RCA) 07/2015 [employer] Work Phone: History of coronary artery bypass grafting S/P CABG x 3 (L-LAD, S-CX, S-RCA) 07/2015 Danielle Mart APRN.SUMEET Work Phone: History of coronary artery bypass grafting S/P CABG x 3 (L-LAD, S-CX, S-RCA) 07/2015 Amber Nash SUPERVISOR SIGN SHOP.OVEN BAKER Work Phone: Plan of Treatment Date Care Activity Detail Author Start: 08-16-2027 Diabetes Screening Diabetes Screening [facility] Start: 07-01-2027 Diabetes Screening Diabetes Screening [facility] Start: 03-13-2027 Lipid 1996 panel - Serum or Plasma Lipid Screening [facility] Start: 03-13-2027 Lipid panel Lipid Screening [facility] Start: 03-13-2027 LIPID SCREEN LIPID SCREEN [facility] Start: 07-01-2026 Diabetes Screening Diabetes Screening [facility] Start: 01-03-2026 Diabetes Screening Diabetes Screening [facility] Start: 12-20-2025 Diabetes Screening Diabetes Screening [facility] Start: 11-29-2025 LIPID SCREEN LIPID SCREEN [facility] Start: 07-30-2025 Annual PCP Team Chronic Disease Visit Annual PCP Team Chronic Disease Visit [facility] Start: 03-29-2025 DIABETES SCREEN DIABETES SCREEN [facility] Start: 03-29-2025 Diabetes Screening Diabetes Screening [facility] Start: 01-01-2025 Annual PCP Team Chronic Disease Visit Annual PCP Team Chronic Disease Visit [facility] Start: 01-01-2025 Covid-19 Vaccine ( season) Covid-19 Vaccine ( season) [facility] Comment on above: Postponed from 11/04/2023 (Declined at t his time) Start: 12-18-2024 End: 12-18-2024 Patient encounter procedure 12/18/2024 2:30 PM EDT Office Visit Cardiology [address] [place] [id number] Amber Nash APRN.OVEN BAKER [address] [place] [phone] follow up Cardiology Comment on above: follow up Start: 11-03-2024 Influenza vaccination Influenza Vaccine (Season Ended) [facility] Start: 10-09-2024 End: 10-09-2024 ambulatory 10/09/2024 3:00 PM EDT [facility] [address] [place] [address] Eren Coyle DO [address] [place], [place] [id number] LEFT KNEE POST OP Orthopaedics Comment on above: LEFT KNEE POST OP Start: 09-26-2024 End: 09-26-2024 Patient encounter procedure 09/26/2024 9:00 AM EDT Office Visit Orthopaedics [address] [address] Nela Ferreira MD [address] [address] 2nd post op Lt tka [facility] 08/14/24 Orthopaedics Comment on above: 2nd post op Lt tka [facility] 08/14/24 Start: 09-10-2024 End: 09-10-2024 Patient encounter procedure 09/10/2024 2:45 PM EDT Office Visit Orthopaedics [address] [address] Nela Ferreira MD [address] [id number] 2nd post op Lt tka [facility] 07/29/24 Orthopaedics Comment on above: 2nd post op Lt tka [facility] 07/29/24 Start: 09-01-2024 Influenza vaccination Influenza Vaccine (#[facility]) [facility] Comment on above: Postponed from 11/04/2023 (Declined at t his time) Start: 08-29-2024 End: 08-29-2024 Patient encounter procedure Orthopaedics Comment on above: 1st post op Lt tka [facility] 08/14/24 Lt Knee XR Start: 08-21-2024 End: 08-21-2024 Patient encounter procedure 08/21/2024 1:20 PM EDT Office Visit Orthopaedics [address] [place] [address] Heath Villanueva PA-C [address] [place] [address] LEFT KNEE POST OP Orthopaedics Comment on above: LEFT KNEE POST OP Start: 08-14-2024 End: 08-14-2024 Patient encounter procedure 08/14/2024 1:20 PM EDT Office Visit Orthopaedics [address] [place] [address] Heath Villanueva PA-C [address] [place] [address] LEFT KNEE POST OP Orthopaedics Comment on above: LEFT KNEE POST OP Start: 08-14-2024 End: 08-14-2024 Admission to same day surgery center 08/14/2024 10:07 AM EDT - 08/14/2024 12:54 PM EDT Surgery [facility] Surgery [address] [place] [address] Nela Ferreira MD [address] [address] ROBOTIC ASSISTED TOTAL KNEE ARTHROPLASTY [facility] Comment on above: ROBOTIC ASSISTED TOTAL KNEE ARTHROPLASTY Start: 08-14-2024 End: 08-14-2024 Arthrp kne condyle&platu medial&lat compartments ROBOTIC ASSISTED TOTAL KNEE ARTHROPLASTY Primary osteoarthritis of left knee 08/14/2024 10:07 AM EDT [facility] Start: 08-14-2024 Subsequent hospital visit by physician 08/14/2024 10:07 AM EDT Hospital Encounter [facility] Surgery [address] [place] [address] Nela Ferreira MD [address] [address] Primary osteoarthritis of left knee [M17.12] [facility] Comment on above: Primary osteoarthritis of left knee [M17 .12] Start: 08-11-2024 End: 08-11-2024 Patient encounter procedure 08/11/2024 10:30 AM EDT Office Visit Orthopaedics [address] [address] Isidro Carranza PA-C [address] [place], [place] [phone] 1st post op Lt tka [facility] 07/29/24 Orthopaedics Comment on above: 1st post op Lt tka [facility] 07/29/24 Start: 08-05-2024 End: 08-05-2024 Patient encounter procedure 08/05/2024 4:15 PM EDT Office Visit [facility] [address] [place] [address] [place] [address] [place], [place] [phone] [facility] Comment on above: [facility] Start: 07-30-2024 End: 07-30-2024 ambulatory 07/30/2024 2:00 PM EDT [facility] [address] [place] [address] Facundo Temple, SUPERVISOR [employer].OVEN BAKER [address] [place] [address] Lory alanis [facility] [place] Comment on above: Lory zeke Start: 07-30-2024 End: 07-30-2024 Patient encounter procedure 07/30/2024 1:00 PM EDT Office Visit Family Medicine Michelle [address] [place] [phone] Sandy Merida, SUPERVISOR [employer].OVEN BAKER [address] [place], [place] [phone] Pts knee surgey was cancelled because she broke out in hive, provider wanted her to see PCP to find out why. See TE 07/29/24. Family Medicine [facility] Comment on above: Pts knee surgey was cancelled because sh e broke out in hive, provider wanted her to see PCP to find out why. See TE 07/29/24. Start: 07-29-2024 End: 07-29-2024 Patient encounter procedure 07/29/2024 3:00 PM EDT Appointment Radiology [address] [place] [address] MRI BRAIN WO/W IVCON Radiology Comment on above: MRI BRAIN WO/W IVCON Start: 07-29-2024 End: 07-29-2024 Admission to same day surgery center 07/29/2024 10:26 AM EDT - 07/29/2024 1:13 PM EDT Surgery [facility] [address] [place] [address] Nela Ferreira MD [address] [address] ROBOTIC ASSISTED TOTAL KNEE ARTHROPLASTY [facility] Comment on above: ROBOTIC ASSISTED TOTAL KNEE ARTHROPLASTY Start: 07-29-2024 End: 07-29-2024 Arthrp kne condyle&platu medial&lat compartments ROBOTIC ASSISTED TOTAL KNEE ARTHROPLASTY Primary osteoarthritis of left knee 07/29/2024 10:26 AM EDT ME OR Start: 07-29-2024 Subsequent hospital visit by physician 07/29/2024 10:26 AM EDT Hospital Encounter [facility] Surgery [address] [place] [address] Nela Ferreira MD [address] [address] Primary osteoarthritis of left knee [M17.12] [facility] Comment on above: Primary osteoarthritis of left knee [M17 .12] Start: 07-21-2024 End: 07-21-2024 Admission to same day surgery center 07/21/2024 7:15 AM EDT - 07/21/2024 10:34 AM EDT Surgery Admitting [address] [place] [address] Eren Coyle, DO [address] [place] [address] SARAH ROBOTIC ASSISTED TOTAL KNEE ARTHROPLASTY Admitting Comment on above: SARAH ROBOTIC ASSISTED TOTAL KNEE ARTHROP LASTY Start: 07-21-2024 End: 07-21-2024 Arthrp kne condyle&platu medial&lat compartments SARAH ROBOTIC ASSISTED TOTAL KNEE ARTHROPLASTY Primary osteoarthritis of left knee 07/21/2024 7:15 AM EDT [facility] RINCON Start: 07-21-2024 Subsequent hospital visit by physician Admitting Comment on above: Primary osteoarthritis of left knee [M17 .12] Start: 07-18-2024 End: 07-18-2024 Patient encounter procedure 07/18/2024 5:30 PM EDT Appointment Radiology [address] [place] [address] DOS 07/29/2024 Radiology Comment on above: GORDON CT DOS 07/29/2024 Start: 07-17-2024 End: 07-17-2024 Patient encounter procedure Cardiology Comment on above: Follow up patient would like to talk to someone before surgery Start: 07-16-2024 End: 07-16-2024 ambulatory 07/16/2024 1:15 PM EDT [facility] [place] [address] [place] [address] Facundo Temple, SUPERVISOR [employer].OVEN BAKER [address] [place] [address] Lory alanis [facility] [place] Comment on above: Lory alanis Start: 07-14-2024 End: 07-14-2024 Patient encounter procedure 07/14/2024 2:15 PM EDT Office Visit Orthopaedics [address] [address] Nela Ferreira MD [address] [address] left knee consult Orthopaedics Comment on above: left knee consult Start: 07-14-2024 End: 10-13-2024 25-hydroxyvitamin D3 [Mass/volume] in Serum or Plasma VITAMIN D 25 HYDROXY Lab Routine Primary osteoarthritis of left knee Expected: 07/14/2024 (Approximate), Expires: 10/13/2024 [facility] Comment on above: Expected: 07/14/2024 (Approximate), Expi res: 10/13/2024 Start: 07-14-2024 End: 10-13-2024 Albumin [Mass/volume] in Serum or Plasma [facility] Comment on above: Expected: 07/14/2024 (Approximate), Expi res: 10/13/2024 Expected: 07/14/2024 , Expires: 10/13/2024 Start: 07-14-2024 End: 10-13-2024 Basic metabolic 2000 panel - Serum or Plasma BASIC METABOLIC PANEL Lab Routine Primary osteoarthritis of left knee Expected: 07/14/2024 (Approximate), Expires: 10/13/2024 [facility] Comment on above: Expected: 07/14/2024 (Approximate), Expi res: 10/13/2024 Start: 07-14-2024 End: 10-13-2024 CBC panel - Blood by Automated count COMPLETE BLOOD COUNT Lab Routine Primary osteoarthritis of left knee Expected: 07/14/2024 (Approximate), Expires: 10/13/2024 [facility] Comment on above: Expected: 07/14/2024 (Approximate), Expi res: 10/13/2024 Start: 07-14-2024 End: 10-13-2024 CBC W Auto Differential panel - Blood COMPLETE BLOOD COUNT AND DIFFERENTIAL Lab Routine Anemia, unspecified type Expected: 07/14/2024 (Approximate), Expires: 10/13/2024 [facility] Comment on above: Expected: 07/14/2024 (Approximate), Expi res: 10/13/2024 Start: 07-14-2024 End: 10-13-2024 CONFIRM BLOOD TYPE CONFIRM BLOOD TYPE Blood Bank Routine Primary osteoarthritis of left knee Expected: 07/14/2024 (Approximate), Expires: 10/13/2024 [facility] Comment on above: Expected: 07/14/2024 (Approximate), Expi res: 10/13/2024 Start: 07-14-2024 End: 10-13-2024 Ferritin [Mass/volume] in Serum or Plasma FERRITIN Lab Routine Anemia, unspecified type Expected: 07/14/2024 (Approximate), Expires: 10/13/2024 [facility] Comment on above: Expected: 07/14/2024 (Approximate), Expi res: 10/13/2024 Start: 07-14-2024 End: 10-13-2024 Iron and Iron binding capacity panel - Serum or Plasma IRON AND TIBC Lab Routine Anemia, unspecified type Expected: 07/14/2024 (Approximate), Expires: 10/13/2024 [facility] Comment on above: Expected: 07/14/2024 (Approximate), Expi res: 10/13/2024 Start: 07-14-2024 End: 10-13-2024 TYPE AND SCREEN,30 DAY TYPE AND SCREEN,30 DAY Blood Bank Routine Primary osteoarthritis of left knee Expected: 07/14/2024 (Approximate), Expires: 10/13/2024 [facility] Comment on above: Expected: 07/14/2024 (Approximate), Expi res: 10/13/2024 Start: 07-01-2024 Annual PCP Team Chronic Disease Visit Annual PCP Team Chronic Disease Visit [facility] Start: 06-30-2024 End: 06-30-2024 Anesthesia consultation 06/30/2024 10:40 AM EDT PAT Pre Anesthesia [address] [place] [address] 1, Pacc [place] [address] [place] [address] PRE OP TESTING Pre Anesthesia Comment on above: PRE OP TESTING Start: 06-26-2024 End: 06-26-2024 Patient encounter procedure 06/26/2024 10:15 AM EDT Office [place] [address] PRE OP DMITRY [employer] [facility] Comment on above: PRE OP DMITRY Start: 06-10-2024 End: 06-10-2024 Patient encounter procedure 06/10/2024 1:45 PM EDT Office Visit [facility] [address] [place] [address] [place] [address] [place] [address] [facility] Comment on above: [facility] Start: 06-06-2024 End: 06-06-2024 Patient encounter procedure 06/06/2024 10:30 AM EDT Office Visit Cardiology [address] [address] Amber Nash APRN.OVEN BAKER [address] [place] [address] Follow up patient would like to talk to someone before surgery Cardiology Comment on above: Follow up patient would like to talk to someone before surgery Start: 05-27-2024 End: 05-27-2024 ambulatory 05/27/2024 3:45 PM EDT OT/PT/Speech Visit [facility] [address] [place] [address] Анна Perez, PT, DPT Chronic pain of right knee [M25.561, G89.29] [facility] Comment on above: Chronic pain of right knee [M25.561, G89 .29] Start: 04-11-2024 End: 04-11-2024 Patient encounter procedure 04/11/2024 2:30 PM EST Office Visit [facility] [address] [place] [address] [place] [id number] [place] [id number] OMM/knee pain [facility] Comment on above: OMM/knee pain Start: 04-03-2024 End: 04-03-2024 Patient encounter procedure Radiology Comment on above: LT KNEE CONSULT FOR LT KNEE SURG. Start: 03-12-2024 End: 03-12-2024 Patient encounter procedure 03/12/2024 2:00 PM EST Office Visit Orthopaedics [address] [address] Nela Ferreira MD [address] [address] 2 month follow up Orthopaedics Comment on above: 2 month follow up Start: 03-06-2024 End: 03-06-2024 Patient encounter procedure 03/06/2024 1:00 PM EST OT/PT/Speech Visit [facility] [address] [place] [address] Анна Perez, PT, DPT Quadriceps strengthening right knee [facility] Comment on above: Quadriceps strengthening right knee Start: 03-05-2024 Advance Directive Discussion Advance Directive Discussion [facility] Start: 03-05-2024 Medicare Advantage Annual Wellness Visit Medicare Advantage Annual Wellness Visit [facility] Start: 03-04-2024 End: 03-04-2024 Patient encounter procedure 03/04/2024 1:00 PM EST [facility] [address] [place] [address] Melinda Tellez, [address] [place] [address] [facility] Comment on above: OMM/right knee pain Start: 02-25-2024 RSV Vaccine (1 - 1-dose 75+ series) RSV Vaccine (1 - 1-dose 75+ series) [facility] Start: 02-14-2024 End: 02-14-2024 Patient encounter procedure 02/14/2024 1:00 PM EST OT/PT/Speech Visit [facility] [address] [place] [address] Анна Perez, PT, DPT Quadriceps strengthening [facility] knee [facility] Comment on above: Quadriceps strengthening right knee Start: 01-30-2024 End: 01-30-2024 Patient encounter procedure 01/30/2024 12:30 PM EST OT/PT/Speech Visit [facility] [address] [place] [address] Анна Perez, PT, DPT Quadriceps strengthening right knee [facility] Comment on above: Quadriceps strengthening right knee Start: 01-14-2024 End: 01-14-2024 Patient encounter procedure 01/14/2024 2:45 PM EST OT/PT/Speech Visit [facility] [address] [place] [address] Jin Cai, PT, DPT [address] [facility] [place] [address] Quadriceps strengthening right knee [facility] Comment on above: Quadriceps strengthening right knee Start: 01-02-2024 End: 04-02-2024 25-hydroxyvitamin D3 [Mass/volume] in Serum or Plasma VITAMIN D 25 HYDROXY Lab Routine Vitamin D deficiency Expected: 01/02/2024, Expires: 04/02/2024 [facility] Comment on above: Expected: 01/02/2024, Expires: Start: 01-02-2024 End: 04-02-2024 CBC W Auto Differential panel - Blood COMPLETE BLOOD COUNT AND DIFFERENTIAL Lab Routine Elevated lipoprotein(a) Expected: 01/02/2024, Expires: 04/02/2024 [facility] Comment on above: Expected: 01/02/2024, Expires: Start: 01-02-2024 End: 04-02-2024 Cobalamin (Vitamin B12) [Mass/volume] in Serum or Plasma VITAMIN B12 Lab Routine Myalgia Expected: 01/02/2024, Expires: 04/02/2024 [facility] Comment on above: Expected: 01/02/2024, Expires: Start: 01-02-2024 End: 04-02-2024 Comprehensive metabolic 2000 panel - Serum or Plasma COMPREHENSIVE METABOLIC PANEL Lab Routine Elevated lipoprotein(a) Expected: 01/02/2024, Expires: 04/02/2024 [facility] Comment on above: Expected: 01/02/2024, Expires: Start: 01-02-2024 End: 04-02-2024 Hemoglobin A1c in Blood HEMOGLOBIN A1C Lab Routine Hyperlipidemia, unspecified hyperlipidemia type Hyperglycemia Expected: 01/02/2024, Expires: 04/02/2024 [facility] Comment on above: Expected: 01/02/2024, Expires: Start: 01-02-2024 End: 04-02-2024 Iron and Iron binding capacity panel - Serum or Plasma IRON AND TIBC Lab Routine Myalgia Expected: 01/02/2024, Expires: 04/02/2024 [facility] Work Phone: Comment on above: Expected: 01/02/2024, Expires: Start: 01-02-2024 End: 04-02-2024 Lipoprotein a [Mass/volume] in Serum or Plasma LIPOPROTEIN (A) Lab Routine Hyperlipidemia, unspecified hyperlipidemia type Expected: 01/02/2024, Expires: 04/02/2024 [facility] Comment on above: Expected: 01/02/2024, Expires: Start: 01-02-2024 End: 04-02-2024 Magnesium [Mass/volume] in Serum or Plasma MAGNESIUM Lab Routine Myalgia Expected: 01/02/2024, Expires: 04/02/2024 [facility] Comment on above: Expected: 01/02/2024, Expires: Start: 01-02-2024 End: 01-02-2024 Patient encounter procedure 01/02/2024 11:00 AM EDT Office Visit [facility] [address] [place], [place] [phone] Silvestre Chance DO [address] [place] [address] Annual Wellness [facility] Comment on above: Annual Wellness Start: 01-01-2024 End: 01-01-2024 Patient encounter procedure 01/01/2024 11:00 AM EDT [facility] [address] [place] [address] Melinda Tellez DO [address] [place] [address] OMM/right knee [facility] Comment on above: OMM/right knee Start: 12-26-2023 End: 12-26-2023 Patient encounter procedure 12/26/2023 3:00 PM EDT Office Visit Orthopaedics [address] [address] Nela Ferreira MD [address] [address] 2 month follow up for right knee Orthopaedics Comment on above: 2 month follow up for right knee Start: 11-30-2023 DIABETES SCREEN DIABETES SCREEN [facility] Start: 11-14-2023 End: 11-14-2023 Patient encounter procedure 11/14/2023 1:30 PM EDT OT/PT/Speech Visit [facility] [address] [place] [address] [place] [address] [place] [address] Knee Replacement Total [facility] Comment on above: Knee Replacement Total Start: 11-13-2023 End: 11-13-[address] [facility] Comment on above: [facility] Start: 11-07-2023 End: 11-07-2023 Patient encounter procedure 11/07/2023 1:45 PM EDT OT/PT/Speech Visit [facility] [address] [place] [address] [place] [address] [place] [address] Knee Replacement Total [facility] Comment on above: Knee Replacement Total Start: 11-06-2023 End: 11-06-2023 Patient encounter procedure 11/06/2023 2:45 PM EDT OT/PT/Speech Visit [facility] [address] [place] [address] Jin Santiago PTA Knee Replacement Total [facility] Comment on above: Knee Replacement Total Start: 11-04-2023 Covid-19 Vaccine ( season) Covid-19 Vaccine () [facility] Start: 11-04-2023 Covid-19 Vaccine ( season) Covid-19 Vaccine () [facility] Start: 11-04-2023 Influenza vaccination [facility] Start: 10-29-2023 End: 10-29-2023 Patient encounter procedure 10/29/2023 1:45 PM EDT OT/PT/Speech Visit [facility] [address] [place] [address] Jin Santiago PTA Knee Replacement Total [facility] Comment on above: Knee Replacement Total Start: 10-26-2023 End: 10-26-2023 Patient encounter procedure Orthopaedics Comment on above: Right Knee - 1 Month Follow Up Knee Replacement Tot al Start: 10-23-2023 End: 10-23-2023 Patient encounter procedure 10/23/2023 2:00 PM EDT OT/PT/Speech Visit [facility] [address] [place] [address] Jin Santiago PTA Knee Replacement Total [facility] Comment on above: Knee Replacement Total Start: 10-18-2023 End: 10-18-2023 Admission to same day surgery center 10/18/2023 3:00 PM EDT OT/PT/Speech Visit [facility] [address] [place] [address] [place] [address] [place] [address] Aftercare following right knee joint replacement surgery [Z47.1, Z96.651] [facility] Comment on above: Aftercare following right knee joint rep lacement surgery [Z47.1, Z96.651] Start: 10-12-2023 End: 10-12-2023 Patient encounter procedure 10/12/2023 2:30 PM EDT Office Visit Orthopaedics [address] [address] Sam Fabian PA-C [address] [place] [address] right knee oain follow up Orthopaedics Comment on above: right knee oain follow up Start: 10-09-2023 End: 10-09-2023 Admission to same day surgery center 10/09/2023 2:00 PM EDT OT/PT/Speech Visit [facility] [address] [place] [address] [place] [address] [place] [address] Aftercare following right knee joint replacement surgery [Z47.1, Z96.651] [facility] Comment on above: Aftercare following right knee joint rep lacement surgery [Z47.1, Z96.651] Start: 09-28-2023 End: 09-28-2023 Patient encounter procedure [facility] Comment on above: omm/ Start: 09-26-2023 End: 09-26-2023 Patient encounter procedure Orthopaedics Comment on above: right knee surgery december 2022. Start: 09-10-2023 End: 09-10-2023 Patient encounter procedure Radiology Comment on above: right knee pain Start: 09-07-2023 End: 09-07-2023 Patient encounter procedure 09/07/2023 11:15 AM EDT Office Visit [facility] [address] [place] [address] Dashawn Lowery DO [address] [place] [address] [facility]/ [facility] Comment on above: om/ Start: 08-06-2023 End: 11-05-2023 Bacteria identified in Urine by Culture URINE CULTURE Microbiology Routine Recurrent UTI (urinary tract infection) Expected: 08/06/2023, Expires: 11/05/2023 [facility] Comment on above: Expected: 08/06/2023, Expires: Start: 08-06-2023 End: 11-05-2023 Urinalysis complete panel - Urine URINALYSIS, WITH MICROSCOPIC Lab Routine Recurrent UTI (urinary tract infection) Expected: 08/06/2023, Expires: 11/05/2023 [facility] Work Phone: Comment on above: Expected: 08/06/2023, Expires: Start: 07-26-2023 End: 07-26-2023 Patient encounter procedure 07/26/2023 2:00 PM EDT Office Visit [facility] [address] [place] [address] Sonia Ibarra MD [address] [place] [address] Time Frame: FLORINA < 3 weeks [facility] [place] Comment on above: Time Frame: FLORINA < 3 weeks Start: 07-20-2023 End: 07-20-2023 Patient encounter procedure 07/20/2023 1:30 PM EDT Appointment [facility] [address] [place], [place] [id number] Meningioma (HCC) [D32.9]; Abnormal CT scan of head [R93.0]; Acute confusion [R41.0] [facility] Comment on above: Meningioma (HCC) [D32.9]; Abnormal CT sc an of head [R93.0]; Acute confusion [R41.0] Start: 07-17-2023 End: 07-17-2023 Patient encounter procedure 07/17/2023 2:45 PM EDT Appointment Radiology [address] [place] [address] Acute confusion [R41.0] Radiology Comment on above: Acute confusion [R41.0] Start: 07-02-2023 End: 10-01-2023 C reactive protein [Mass/volume] in Serum or Plasma [facility] Comment on above: Expected: 07/02/2023, Expires: Start: 07-02-2023 End: 10-01-2023 Comprehensive metabolic 2000 panel - Serum or Plasma [facility] Comment on above: Expected: 07/02/2023, Expires: Start: 07-02-2023 End: 10-01-2023 Erythrocyte sedimentation rate [facility] Comment on above: Expected: 07/02/2023, Expires: Start: 07-02-2023 End: 10-01-2023 Lead [Mass/volume] in Blood [facility] Comment on above: Expected: 07/02/2023, Expires: Start: 07-02-2023 End: 10-01-2023 Lipoprotein a [Mass/volume] in Serum or Plasma LIPOPROTEIN (A) Lab Routine Hyperlipidemia, unspecified hyperlipidemia type Elevated lipoprotein(a) Expected: 07/02/2023, Expires: 10/01/2023 [facility] Comment on above: Expected: 07/02/2023, Expires: 4 Start: 07-02-2023 End: 07-02-2023 Patient encounter procedure 07/02/2023 11:20 AM EDT Office Visit Family Medicine [facility] [address] [place], [place] [address] Kayla Veloz APRN.OVEN BAKER [address] [facility] [place] [id number] memory loss and confusion episode-see phone note 06/29 [facility] Comment on above: memory loss and confusion episode-see ph one note 06/29 Start: 03-13-2023 Hepatitis B surface antibody level LDL CHOLESTEROL [facility] Start: 03-05-2023 Advance Directive Discussion Advance Directive Discussion [facility] Start: 03-05-2023 Behavioral Health Screening Behavioral Health Screening [facility] Start: 11-23-2022 ANNUAL PCP TEAM CHRONIC DISEASE VISIT ANNUAL PCP TEAM CHRONIC DISEASE VISIT [facility] Start: 11-03-2022 Covid-19 Vaccine ( season) Covid-19 Vaccine ( season) [facility] Start: 11-03-2022 Influenza vaccination [facility] Start: 03-23-2022 End: 05-23-2022 Basic metabolic 2000 panel - Serum or Plasma BASIC METABOLIC PNL Lab Routine Palpitations Expected: 03/23/2022, Expires: 05/23/2022 [facility] Work Phone: Comment on above: Expected: 03/23/2022, Expires: 3 Start: 03-23-2022 End: 05-23-2022 Magnesium [Mass/volume] in Serum or Plasma MAGNESIUM BLD Lab Routine Palpitations Expected: 03/23/2022, Expires: 05/23/2022 [facility] Work Phone: Comment on above: Expected: 03/23/2022, Expires: 3 Start: 03-23-2022 End: 05-23-2022 Thyrotropin [Units/volume] in Serum or Plasma TSH BLD Lab Routine Palpitations Expected: 03/23/2022, Expires: 05/23/2022 [facility] Work Phone: Comment on above: Expected: 03/23/2022, Expires: 3 Start: 03-05-2022 ADVANCE DIRECTIVE DISCUSSION ADVANCE DIRECTIVE DISCUSSION [facility] Start: 03-05-2022 DEPRESSION ASSESSMENT DEPRESSION ASSESSMENT [facility] Start: 01-26-2022 End: 03-28-2022 Hepatic function 2000 panel - Serum or Plasma HEPATIC FUNCTION PNL Lab Routine Pure hypercholesterolemia Expected: 01/26/2022, Expires: 03/28/2022 [facility] Work Phone: Comment on above: Expected: 01/26/2022, Expires: 3 Start: 01-26-2022 End: 03-28-2022 Lipid 1996 panel - Serum or Plasma LIPID PANEL BASIC Lab Routine Pure hypercholesterolemia Expected: 01/26/2022, Expires: 03/28/2022 [facility] Work Phone: Comment on above: Expected: 01/26/2022, Expires: 3 Start: 01-26-2022 End: 03-28-2022 Lipoprotein a [Mass/volume] in Serum or Plasma LIPOPROTEIN (A) Lab Routine Pure hypercholesterolemia Expected: 01/26/2022, Expires: 03/28/2022 [facility] Work Phone: Comment on above: Expected: 01/26/2022, Expires: 3 Start: 01-03-2022 End: 11-26-2022 NM CARDIAC PERF STRESS/EXERCISE NM CARDIAC PERF STRESS/EXERCISE Radiology Routine Coronary artery disease involving [place] coronary artery of [place] heart without angina pectoris Expected: 01/03/2022, Expires: 11/26/2022 [facility] Work Phone: Comment on above: Expected: 01/03/2022, Expires: 3 Start: 11-29-2021 Hepatitis B surface antibody level LDL CHOLESTEROL [facility] Start: 11-03-2021 Influenza vaccination [facility] Start: 06-05-2021 COVID-19 VACCINE (4 - Booster for Pfizer series) COVID-19 VACCINE (4 - Booster for Pfizer series) [facility] Start: 04-01-2021 COVID-19 VACCINE (4 - Booster for Pfizer series) COVID-19 VACCINE (4 - Booster for Pfizer series) [facility] Start: 04-01-2021 COVID-19 VACCINE (4 - Pfizer series) COVID-19 VACCINE (4 - Pfizer series) [facility] Start: 03-05-2021 ADVANCE DIRECTIVE DISCUSSION ADVANCE DIRECTIVE DISCUSSION [facility] Start: 03-05-2021 DEPRESSION ASSESSMENT DEPRESSION ASSESSMENT [facility] Start: 02-22-2020 ANNUAL PCP TEAM CHRONIC DISEASE VISIT ANNUAL PCP TEAM CHRONIC DISEASE VISIT [facility] Start: 12-21-2019 Adult depression screening assessment DEPRESSION SCREENING [facility] Start: 12-21-2019 Colonoscopy COLONOSCOPY [facility] Start: 12-21-2019 COLORECTAL CANCER SCREENING COLORECTAL CANCER SCREENING [facility] Start: 12-21-2019 Mammography [facility] Start: 12-21-2019 Screening for malignant neoplasm of breast Mammogram Screening [facility] Start: 12-21-2019 Screening for malignant neoplasm of colon [facility] Start: 2014 BONE DENSITY BONE DENSITY [facility] Start: 2014 Bone Density Screening Bone Density Screening [facility] Start: 2014 Pneumococcal Vaccine: 65+ (1 - PCV) Pneumococcal Vaccine: 65+ (1 - PCV) [facility] Start: 2014 Pneumococcal Vaccine: 65+ (1 of 1 - PCV) Pneumococcal Vaccine: 65+ (1 of 1 - PCV) [facility] Start: 2014 PNEUMOCOCCAL: 65+ (1 - PCV) PNEUMOCOCCAL: 65+ (1 - PCV) [facility] Start: 2014 PNEUMOVAX AGE 65 AND OVER WITH 5YR LOOKBACK (#1) PNEUMOVAX AGE 65 AND OVER WITH 5YR LOOKBACK (#1) [facility] Start: 2014 Screening for osteoporosis Bone Density Screening [facility] Start: 2009 RSV Vaccine (1 - 1-dose 60+ series) RSV Vaccine (1 - 1-dose 60+ series) [facility] Start: 2009 RSV Vaccine (1 - Risk 60-74 years 1-dose series) RSV Vaccine (1 - Risk 60-74 years 1-dose series) [facility] Start: 11-22-2004 Urine microalbumin profile [facility] Start: 1999 Pneumococcal Vaccine: 50+ (1 of 1 - PCV) Pneumococcal Vaccine: 50+ (1 of 1 - PCV) [facility] Start: 1999 SHINGRIX VACCINE (1 of 2) SHINGRIX VACCINE (1 of 2) [facility] Start: 1994 COLOGUARD (FIT-DNA) COLOGUARD (FIT-DNA) [facility] Start: [address] COLONOGRAPHY [facility] Start: 1994 FECAL OCCULT BLOOD FECAL OCCULT BLOOD [facility] Start: 1994 Screening for malignant neoplasm of colon [facility] Start: 1994 SIGMOIDOSCOPY SIGMOIDOSCOPY [facility] Start: 1967 Anxiety Screening Anxiety Screening [facility] Start: 1967 Depression Screening Depression Screening [facility] Start: 1967 HEPATITIS C SCREENING HEPATITIS C SCREENING [facility] Start: 1967 Hepatitis C screening Hepatitis C Screening [facility] Arthrp kne condyle&p latu medial&lat compartments SARAH ROBOTIC ASSISTED TOTAL KNEE ARTHROPLASTY Primary osteoarthritis of left knee [facility] End: 01-01-2025 Bacteria identified in Urine by Culture URINE CULTURE Microbiology Routine Dysuria Once per week for 52 Occurrences starting 01/02/2024 until 01/01/2025 [facility] Comment on above: Once per week for 52 Occurrences startin g 01/02/2024 until 01/01/2025 Bacteria identified in Urine by Culture URINE CULTURE Microbiology Routine Dysuria 01/02/2024 12:18 PM EDT [facility] End: 07-31-2024 CT Head WO contrast CT BRAIN WO IVCON Radiology Routine Acute confusion 1 Occurrences starting 07/02/2023 until 07/31/2024 [facility] Work Phone: Comment on above: 1 Occurrences starting 07/02/2023 until 07/31/2024 CT Head WO contrast CT BRAIN WO IVCON Radiology Routine Acute confusion 07/17/2023 2:48 PM EDT [facility] Work Phone: CT Knee - left WO contrast CT KNEE WO IVCON LEFT Radiology Routine Primary osteoarthritis of left knee 07/18/2024 5:43 PM EDT [facility] Work Phone: End: 12-27-2023 CT KNEE WO IVCON RIGHT CT KNEE WO IVCON RIGHT Radiology Routine Primary osteoarthritis of right knee Preoperative testing 1 Occurrences starting 11/27/2022 until 12/27/2023 [facility] Work Phone: Comment on above: 1 Occurrences starting 11/27/2022 until 12/27/2023 End: 03-23-2023 ECG COMPLETE ECG COMPLETE ECG Routine Palpitations 1 Occurrences starting 03/23/2022 until 03/23/2023 [facility] Work Phone: Comment on above: 1 Occurrences starting 03/23/2022 until 03/23/2023 End: 04-03-2025 ECG COMPLETE ECG COMPLETE ECG Routine Primary osteoarthritis of left knee 1 Occurrences starting 04/03/2024 until 04/03/2025 [facility] Work Phone: Comment on above: 1 Occurrences starting 04/03/2024 until 04/03/2025 End: 03-23-2023 Echocardiography ECHO Cardiology Routine Palpitations 1 Occurrences starting 03/23/2022 until 03/23/2023 [facility] Work Phone: Comment on above: 1 Occurrences starting 03/23/2022 until 03/23/2023 MELINDA PATIENT EDUCATI ON PROGRAM MELINDA PATIENT EDUCATION PROGRAM Other 04/03/2024 [facility] End: 09-01-2023 BRYAN SCREENING BRYAN SCREENING Radiology Routine Encounter for screening mammogram for breast cancer 1 Occurrences starting 08/02/2022 until 09/01/2023 [facility] Work Phone: Comment on above: 1 Occurrences starting 08/02/2022 until 09/01/2023 End: 08-09-2024 MG Breast Screening BRYAN SCREENING Radiology Routine Encounter for screening mammogram for breast cancer 1 Occurrences starting 07/11/2023 until 08/09/2024 [facility] Work Phone: Comment on above: 1 Occurrences starting 07/11/2023 until 08/09/2024 End: 08-18-2024 MR Brain WO and W contrast IV MRI BRAIN WO/W IVCON Radiology Routine Meningioma (HCC) Abnormal CT scan of head Acute confusion 1 Occurrences starting 07/20/2023 until 08/18/2024 [facility] Work Phone: Comment on above: 1 Occurrences starting 07/20/2023 until 08/18/2024 MR Brain WO and W contrast IV MRI BRAIN WO/W IVCON Radiology Routine Meningioma (HCC) Abnormal CT scan of head Acute confusion 07/20/2023 2:24 PM EDT [facility] End: 08-15-2025 MR Brain WO and W contrast IV MRI BRAIN WO/W IVCON Radiology Routine Benign neoplasm of meninges (HCC) 1 Occurrences starting 07/16/2024 until 08/15/2025 [facility] Work Phone: Comment on above: 1 Occurrences starting 07/16/2024 until 08/15/2025 End: 11-11-2023 NM CARDIAC PERF STRESS/PHARM NM CARDIAC PERF STRESS/PHARM Radiology Routine Encounter for screening for cardiovascular disorders 1 Occurrences starting 10/10/2022 until 11/11/2023 [facility] Work Phone: Comment on above: 1 Occurrences starting 10/10/2022 until 11/11/2023 OUTSIDE VENDOR CARDI AC OUTPATIENT EXTENDED RHYTHM RECORDING (WITHOUT TELEMETRY) OUTSIDE VENDOR CARDIAC OUTPATIENT EXTENDED RHYTHM RECORDING (WITHOUT TELEMETRY) Holter Routine Palpitations Postoperative atrial fibrillation (HCC) Ordered: 03/23/2022 [facility] Work Phone: Comment on above: Ordered: 03/23/2022 REFER FOR ADMIT INTERVIEW REFER FOR ADMIT INTERVIEW Procedures Routine Primary osteoarthritis of left knee Ordered: 04/03/2024 [facility] Comment on above: Ordered: 04/03/2024 End: 09-30-2022 Screening mammography bi [facility] cad BRYAN SCREENING Radiology Routine Encounter for screening mammogram for breast cancer 1 Occurrences starting 08/31/2021 until 09/30/2022 [facility] Work Phone: Comment on above: 1 Occurrences starting 08/31/2021 until 09/30/2022 UA DIP, URINE (POC) UA DIP, URIN E (POC) Lab Routine Acute confusion Ordered: 07/02/2023 [facility] Comment on above: Ordered: 07/02/2023 End: 01-01-2025 Urinalysis complete panel - Urine URINALYSIS, WITH MICROSCOPIC Lab Routine Dysuria Once per week for 52 Occurrences starting 01/02/2024 until 01/01/2025 [facility] Comment on above: Once per week for 52 Occurrences startin g 01/02/2024 until 01/01/2025 US LEG VEIN DVT UNL VAS LAB US LEG VEIN DVT UNL VAS LAB Vascular Lab STAT Pain and swelling of right lower leg 02/15/2023 3:54 PM EST [facility] Work Phone: End: 04-06-2025 XR Knee - left 4 Views XR KNEE GENERAL 4V AP BOTH/PA BOTH/LAT/MERC LEFT Radiology Routine Pain 1 Occurrences starting 03/07/2024 until 04/06/2025 [facility] Work Phone: Comment on above: 1 Occurrences starting 03/07/2024 until 04/06/2025 End: 10-03-2024 XR Knee AP and Lateral and Merchants XR KNEE POST OP 3V AP/LAT/MERCHANT RIGHT Radiology Routine Right knee pain, unspecified chronicity 1 Occurrences starting 09/04/2023 until 10/03/2024 [facility] Work Phone: Comment on above: 1 Occurrences starting 09/04/2023 until 10/03/2024 End: 05-03-2025 XR Knee AP and Lateral and Merchants XR KNEE POST OP 3V AP/LAT/MERCHANT LEFT Radiology Routine Primary osteoarthritis of left knee 1 Occurrences starting 04/03/2024 until 05/03/2025 [facility] Comment on above: 1 Occurrences starting 04/03/2024 until 05/03/2025 End: 08-04-2023 XR KNEE GENERAL 4V AP BOTH/PA BOTH/LAT/MERC RIGHT XR KNEE GENERAL 4V AP BOTH/PA BOTH/LAT/MERC RIGHT Radiology Routine Right knee pain, unspecified chronicity 1 Occurrences starting 07/05/2022 until 08/04/2023 [facility] Work Phone: Comment on above: 1 Occurrences starting 07/05/2022 until 08/04/2023 End: 04-03-2025 XR Lumbar spine Views W flexion and W extension XR LUMBAR MOTION 4V AP/LAT/ FLEX/EXT Radiology Routine Chronic left-sided low back pain without sciatica 1 Occurrences starting 03/04/2024 until 04/03/2025 [facility] Work Phone: Comment on above: 1 Occurrences starting 03/04/2024 until 04/03/2025 [facility] Immunizations Immunization Date Immunization Notes Care Provider Avril nicole 11-21-2005 TD(adult) unspecifie d formulation [employer] Work Phone: [facility] Payers Date Payer Category Payer Medicare [employer] ANTHEM CARELON [id number] 2023-Present [phone] [address] [place] [address] Medicare [id number] 2023 Private Health Insurance [employer] [id number] 2019 Medicare (Managed Care) [employer] Member Subscriber Plan / Payer (Effective 2019-Present) Name: Moira Suh Relation to Subscriber: Self Name: Moira Suh Payer ID: [id number] (NA) Group ID: [id number] Type: HMO Address: [address] [place] [address] [id number] 15 2019 Unknown ANTHBALDOMERO [facility] S AND BLUE SHIELD [facility]BALDOMERO [facility] [id number] 2019-Present [phone] [address] [place] [address] [facility] [id number] 2019 Unknown [id number] 2019 Medicare [id number] Unknown [id number] Social History Date Type Detail Facility Start: 10-26-2021 End: 06-06-2024 Tobacco smoking status NHIS Ex-smoker [facility] History of tobacco use Cigarette Smoker C [facility] Start: 07-11-2021 End: 10-04-2022 Alcohol intake Current non-drinker of alcohol (finding) [facility] Start: 01-14-2008 History SDOH Alcohol Comment socially [facility] Start: 1950 Sex Assigned At Not on file C [facility] Start: 07-01-2021 End: 11-23-2021 Exposure to SARS-CoV-2 (event) Not sure [facility] History of tobacco use Current smoker [facility] Start: 10-26-2021 End: 07-10-2022 Cigarettes smoked current (pack per day) - Reported 1 [facility] Start: 10-26-2021 End: 06-06-2024 Tobacco use and exposure Smokeless tobacco non-user [facility] Start: 06-05-2022 End: 07-10-2022 Tobacco use panel [facility] National Score (1-10 0), lower number is lower risk 65 [facility] Start: 12-20-2022 End: 08-08-2024 Alcohol intake Current drinker of alcohol (finding) [facility] Are you now , , , , never or living with a partner? [facility] How often to you hav e a drink containing alcohol? 2-4 times a month [facility] How many standard dr inks containing alcohol do you have on a typical day? 1 or 2 [facility] How often do you hav e 6 or more drinks on 1 occasion? Never [facility] Do you feel stress - tense, restless, nervous, or anxious, or unable to sleep at night because your mind is troubled all the time - these days [OSQ] Not at all [facility] In the past 12 month s, was there a time when you were not able to pay the mortgage or rent on time? No [facility] (I/We) worried magalys er (my/our) food would run out before (I/we) got money to buy more. Never true [facility] Medical Equipment Procedure Code Equipment Code Equipment Origin al Text Equipment Identifier Dates Component 32mm Tritanium 10mm Patellar Asymmetric - [id number] Start: 01-02-2023 Baseplate Triath ashley 3 Tritanium 44mm 67mm Tibial Sterile Latex Free - [id number] Start: 01-02-2023 Component Triath john paul 3 Pa Femoral Cruciate Retain Bead Knee Right - [id number] Start: 01-02-2023 Insert Triathlon 3 10mm Tibial Bearing Condylar Stabilize Sterile Knee - [id number] Start: 01-02-2023 Insert Triathlon 4 9mm Tibial Bearing Condylar Stabilize Sterile Knee - [id number] Start: 08-14-2024 Component Triath john paul 3 Pa Femoral Cruciate Retain Bead Knee Left - [id number] Start: 08-14-2024 Component Tritan ium 35mm Metal 10mm Patellar Asymmetric Knee - [id number] Start: 08-14-2024 Baseplate Triath ashley 4 Tritanium Tibial Coated Sterile Knee - [id number] Start: 08-14-2024 Goals Date Patient Goal Desired Activity /State Personal health goal Personal health goal Personal health goal Personal health goal Functional Status Date Assessment Result Facility 08-15-2024 Are you deaf, or do you have serious difficulty hearing No 08/15/2024 1:30 PM Guillermo Canales, ILSA No [facility] 08-15-2024 Are you blind, or do you have serious difficulty seeing, even when wearing glasses No 08/15/2024 1:30 PM Guillermo Canales, ILSA No [facility] 08-15-2024 Do you have serious difficulty walking or climbing stairs Yes 08/15/2024 1:30 PM Guillermo Canales, ILSA Yes [facility] 08-15-2024 Do you have difficul ty dressing or bathing No 08/15/2024 1:30 PM Guillermo Canales, ILSA No [facility] 08-15-2024 Because of a physica l, mental, or emotional condition, do you have difficulty doing errands alone such as visiting a physician's office or shopping Yes 08/15/2024 1:30 PM Guillermo Canales, ILSA Yes [facility] 01-03-2023 Are you deaf, or do you have serious difficulty hearing No 01/03/2023 2:47 PM Guillermo Canales RN No [facility] 01-03-2023 Are you blind, or do you have serious difficulty seeing, even when wearing glasses No 01/03/2023 2:47 PM Guillermo Canales, ILSA No [facility] 01-03-2023 Do you have serious difficulty walking or climbing stairs No 01/03/2023 2:47 PM Guillermo Canales, RN No [facility] 01-03-2023 Do you have difficul ty dressing or bathing No 01/03/2023 2:47 PM EDGuillermo George, RN No [facility] 01-03-2023 Because of a physica l, mental, or emotional condition, do you have difficulty doing errands alone such as visiting a physician's office or shopping Yes 01/03/2023 2:47 PM EDGuillermo George, RN Yes [facility] Mental Status Date Assessment Result Facility 08-15-2024 Because of a physica l, mental, or emotional condition, do you have serious difficulty concentrating, remembering, or making decisions No 08/15/2024 1:30 PM EDGuillermo George, RN No [facility] 01-03-2023 Because of a physica l, mental, or emotional condition, do you have serious difficulty concentrating, remembering, or making decisions No 01/03/2023 2:47 PM Guillermo Canales, RN No [facility] Clinical Notes 10-15-2015 to 08-20-2024 PT ROUTINE/REASSESSMENT/RECERT/CASE MGMT - Kasandra, Lorene, MASTER OF CEREMONIES - [facility]RECERT/CASE MGMT - Kasandra, Lorene, MASTER OF CEREMONIES - 08/20/2024 11:00 AM EDTPatient Instructions Note Date & Type Note Facility 08-20-2024 Miscellaneous Notes SITUATION: spouse present during today's visit. patient reports the following since the last homecare visit: medications/allergies--no changes, no fall. patient reports knee is tight but doing ok. Its better then the other one as far as the swelling.. BACKGROUND: Diagnoses (reason for Home Care): LTKR Weight Bearing/Precaution Changes: no changes ASSESSMENT: Focus of visit performed ROM and strength exercises for HEP. Continues to use leg human resources leader to advance LLE w/ ambulation due to quad weakness. Also using leg human resources leader w/ bed transfers. recommended to continue w/ ice and elevation for pain and swelling Plan of care, goals, and visit frequency reviewed and agreed upon with patient and/or caregiver. Current Discharge Plan: outpatient rehab Anticipate discharge by 09/04/24 RECOMMENDATION: Next visit to focus on quad strengthening, possibly try standing tke w/ tband See intervention summary for intervention/education details. documented in this encounter [facility] 08-20-2024 Patient's home Note SITUATION: spouse present during today's visit. patient reports the following since the last homecare visit: medications/allergies--no changes, no fall. patient reports knee is tight but doing ok. Its better then the other one as far as the swelling.. BACKGROUND: Diagnoses (reason for Home Care): LTKR Weight Bearing/Precaution Changes: no changes ASSESSMENT: Focus of visit performed ROM and strength exercises for HEP. Continues to use leg human resources leader to advance LLE w/ ambulation due to quad weakness. Also using leg human resources leader w/ bed transfers. recommended to continue w/ ice and elevation for pain and swelling Plan of care, goals, and visit frequency reviewed and agreed upon with patient and/or caregiver. Current Discharge Plan: outpatient rehab Anticipate discharge by 09/04/24 RECOMMENDATION: Next visit to focus on quad strengthening, possibly try standing tke w/ tband See intervention summary for intervention/education details. [facility] Work Phone: 08-19-2024 Miscellaneous Notes Medication review completed. No ineffective drug therapy, significant side effects, significant drug interactions, duplicate drug therapy, or noncompliance with drug therapy noted. Dai Salgado RN documented in this encounter [facility] 08-19-2024 Patient's home Note Medication review completed. No ineffective drug therapy, significant side effects, significant drug interactions, duplicate drug therapy, or noncompliance with drug therapy noted. Dai Salgado RN [facility] Work Phone: 08-18-2024 Miscellaneous Notes SITUATION: spouse present during today's visit.I spoke with Moira last evening to schedule and she reported no new bleeding but she does not feel that the wrapped ABD's are enough protection. [place]I messaged the MD office and they replied that its ok to just cover but if she would feel more comfortable they will have a silverlone for her to vegetable picker at their office. Relayed this to the patient . 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 Weight Bearing or Surgical Precautions: WBAT HOME: 2 story . 2 steps no rail entry. Main floor set up . Lives with spouse PLF: functionally indep at community level w/o ad . + drive A ASSESSMENT: Focus of visit review of HEP - completed on bed today. Pt using her leg human resources leader to advance the LLE during swing phase as her quads are so shut down she cannot move her LLE on her own AROM - 70 Plan of care, goals, and visit frequency reviewed and agreed upon with patient and/or caregiver. Current Discharge Plan: outpatient rehab Anticipate discharge by 09/05/24 RECOMMENDATION: Next visit to focus on cont to progress strength , ROM and gait development See intervention summary for intervention/education details. documented in this encounter [facility] 08-18-2024 Patient's home Note SITUATION: spouse present during today's visit.I spoke with Moira last evening to schedule and she reported no new bleeding but she does not feel that the wrapped ABD's are enough protection. [place]I messaged the MD office and they replied that its ok to just cover but if she would feel more comfortable they will have a silverlone for her to vegetable picker at their office. Relayed this to the patient . 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 Weight Bearing or Surgical Precautions: WBAT HOME: 2 story . 2 steps no rail entry. Main floor set up . Lives with spouse PLF: functionally indep at community level w/o ad . + drive A ASSESSMENT: Focus of visit review of HEP - completed on bed today. Pt using her leg human resources leader to advance the LLE during swing phase as her quads are so shut down she cannot move her LLE on her own AROM - 70 Plan of care, goals, and visit frequency reviewed and agreed upon with patient and/or caregiver. Current Discharge Plan: outpatient rehab Anticipate discharge by 09/05/24 RECOMMENDATION: Next visit to focus on cont to progress strength , ROM and gait development See intervention summary for intervention/education details. [facility] Work Phone: 08-17-2024 [facility] I spoke with Moira this evening and she reports no new bleeding but she does not feel that the wrapped ABD's are enough protection. [place] I explained that home care does not have access to silver dressings but I would ask if she can obtain one from your office . Pts spouse is willing to come pick it up if you think it is appropriate Please advise Thanks Rajesh PT [facility] Work Phone: 08-17-2024 Miscellaneous Notes [facility] I spoke with Moira this evening and she reports no new bleeding but she does not feel that the wrapped ABD's are enough protection. [place] I explained that home care does not have access to silver dressings but I would ask if she can obtain one from your office . Pts spouse is willing to come pick it up if you think it is appropriate Please advise Thanks Rajesh PT documented in this encounter [facility] 08-16-2024 Telephone encounter [facility] I completed Moira's admission to home care today. Her post op dressing was saturated with blood and starting to bulge. I removed the dressing and placed ABD's wrapped in rolled gauze. I gave her extra ABD's and instructed her to change them if they become soiled. There was no active bleeding noted when the dressing was removed Photos uploaded to chart for you to review Thanks Rajesh PT [facility] Work Phone: 08-16-2024 Miscellaneous Notes [facility] team I completed Moira's admission to home care today. Her post op dressing was saturated with blood and starting to bulge. I removed the dressing and placed ABD's wrapped in rolled gauze. I gave her extra ABD's and instructed her to change them if they become soiled. There was no active bleeding noted when the dressing was removed Photos uploaded to chart for you to review Thanks Rajesh PT documented in this encounter [facility] 08-16-2024 Miscellaneous Notes SITUATION: spouse present during today's visit. patient reports that her bandage is soaked with blood. She called Dr Ferreira yesterday when it started . He told her it was ok as long as it stayed within the parameters of the silver and to have the home PT look at it . The dressing is completely soaked and stating to ooze outside of the parameters - dressing removed and ABD's and wrap placed. MD notified and with pts permission photos were uploaded to the chart BACKGROUND: Diagnoses (reason for Home Care): [facility] from 08/14/24 to 08/15/2024 fPrimary Diagnoses (reason for Home Care): Primary osteoarthritis of left knee S/P ROBOTIC ASSISTED TOTAL KNEE ARTHROPLASTY (Left) 08/14/24 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) Dry Skin Hair Loss Bmi 37.0-37.9, Adult Exposure to Mercury Paf (Paroxysmal Atrial Fibrillation) (Hcc) Insulin Resistance Vitamin D Deficiency Former Smoker S/P Total Knee Arthroplasty, Right Primary Osteoarthritis of Left Knee Primary Osteoarthritis of Right Knee Medicare Annual Wellness Visit, Subsequent Actinic Keratosis Myalgia Hyperglycemia Dysuria Aftercare Following Right Knee Joint Replacement Surgery Chronic Pain of Right Knee Chronic Bilateral Low Back Pain Spider Bite Advance Directives: Patient does have advance directives. Weight Bearing or Surgical Precautions: WBAT HOME: 2 story . 2 steps no rail entry. Main floor set up . Lives with spouse PLF: functionally indep at community level w/o ad . + drive ASSESSMENT: Patient evaluated by [facility] physical therapy. Reviewed and explained homecare services. Plan of care, goals, and visit frequency developed, reviewed, and agreed upon with patient and/or caregiver. Patient Goal: walk without pain Patient will benefit from continued physical therapy to address the following deficits: strength, balance, gait, endurance, transfers, stair negotiation and bed mobility. Current Discharge Plan: outpatient rehab. Anticipate discharge by 09/05/24 . RECOMMENDATION: Next visit to focus on review of HEP, check incision for bleeding and change as needed, gait, transfers Agreeable to PT; declining none. See intervention summary for intervention/education details. documented in this encounter [facility] 08-16-2024 Patient's home Note SITUATION: spouse present during today's visit. patient reports that her bandage is soaked with blood. She called Dr Ferreira yesterday when it started . He told her it was ok as long as it stayed within the parameters of the silver and to have the home PT look at it . The dressing is completely soaked and stating to ooze outside of the parameters - dressing removed and ABD's and wrap placed. MD notified and with pts permission photos were uploaded to the chart BACKGROUND: Diagnoses (reason for Home Care): [facility] from 08/14/24 to 08/15/2024 fPrimary Diagnoses (reason for Home Care): Primary osteoarthritis of left knee S/P ROBOTIC ASSISTED TOTAL KNEE ARTHROPLASTY (Left) 08/14/24 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) Dry Skin Hair Loss Bmi 37.0-37.9, Adult Exposure to Mercury Paf (Paroxysmal Atrial Fibrillation) (Hcc) Insulin Resistance Vitamin D Deficiency Former Smoker S/P Total Knee Arthroplasty, Right Primary Osteoarthritis of Left Knee Primary Osteoarthritis of Right Knee Medicare Annual Wellness Visit, Subsequent Actinic Keratosis Myalgia Hyperglycemia Dysuria Aftercare Following Right Knee Joint Replacement Surgery Chronic Pain of Right Knee Chronic Bilateral Low Back Pain Spider Bite Advance Directives: Patient does have advance directives. Weight Bearing or Surgical Precautions: WBAT HOME: 2 story . 2 steps no rail entry. Main floor set up . Lives with spouse PLF: functionally indep at community level w/o ad . + drive ASSESSMENT: Patient evaluated by [facility] physical therapy. Reviewed and explained homecare services. Plan of care, goals, and visit frequency developed, reviewed, and agreed upon with patient and/or caregiver. Patient Goal: walk without pain Patient will benefit from continued physical therapy to address the following deficits: strength, balance, gait, endurance, transfers, stair negotiation and bed mobility. Current Discharge Plan: outpatient rehab. Anticipate discharge by 09/05/24 . RECOMMENDATION: Next visit to focus on review of HEP, check incision for bleeding and change as needed, gait, transfers Agreeable to PT; declining none. See intervention summary for intervention/education details. [facility] Work Phone: 08-15-2024 Note HNO ID: [id number] Author: ?, ?, ? Service: Pharmacy Author Type: ? Type: Plan of Care Filed: 08/15/2024 16:09 Note Text: PHARMACY BEDSIDE DELIVERY SERVICE Patient Name: Moira Suh The marked outpatient medications were Filled at: [facility] and delivered to the patient's bedside to pharm p/u Medication List START taking these medications acetaminophen 500 mg tablet Commonly known as: TYLENOL Take 2 tablets by mouth every 8 hours. X aspirin, enteric coated 81 mg EC tablet Commonly known as: ASPIRIN, ENTERIC COATED Take 1 tablet by mouth two times a day. X docusate sodium 100 mg capsule Commonly known as: COLACE Take 1 capsule by mouth two times a day. X ELLIOT-JACEK 8.6 mg Tab Generic drug: senna Take 2 tablets by mouth daily at bedtime. X ondansetron orally disintegrating 4 mg disintegrating tablet Commonly known as: ZOFRAN ODT Take 1 tablet by mouth every 6 hours as needed for nausea/vomiting. X oxyCODONE IR 5 mg immediate release tablet Commonly known as: ROXICODONE Take 1-2 tablets by mouth every 4 hours as needed for pain for up to 7 days. X CHANGE how you take these medications ascorbic acid (vitamin C) 500 mg tablet Commonly known as: VITAMIN C Take 1 tablet by mouth two times a day with meals for 27 doses. What changed: how much to take when to take this CONTINUE taking these medications cholecalciferol 1,000 unit Tab tablet Commonly known as: VITAMIN D3 CoQ10 (Liposomal Ubiquinol) 200 mg Cap Take 1 capsule by mouth daily with food. MAGNESIUM ORAL metoprolol succinate ER 25 mg 24 hr tablet Commonly known as: TOPROL XL Take 1 tablet by mouth once daily. OTC NUTRITIONAL SUPPLEMENT Take 1 capsule by mouth once daily. OTC NUTRITIONAL SUPPLEMENT Take one teaspoon (5 ml) 1 times daily with food OTC PRODUCT OTC PRODUCT fhxjxvwt-uvvu-zyxcs-oreg-capry 100 mg-150 mg- 50 mg-150 mg Cap You might also be taking other medications not listed above. If you have questions about any of your other medications, talk to the person who prescribed them or your Primary Care Provider. Tracy Briones PAGER: [phone] August 15, 2024 4:09 PM [facility] 08-15-2024 Note HNO ID: [id number] Author: MONE RAMIREZ, RN Service: Care Management Author Type: Registered Nurse Type: Care Mgt Progress Note Filed: 08/15/2024 14:21 Note Text: CARE MANAGEMENT DISCHARGE NOTE SERVICE DATE: August 15, 2024 SERVICE TIME:2:20 PM Admission Date: 08/14/2024 LOS: 0 days Discharge Arrangement Discharge Arrangement: Home with Home Health, Home with Relative Services Arranged Medical Services: Skilled Home Health Care Type: Home Health Agency, Physical Therapy Provider Name: [facility] Caregiver Assessment Caregiver is ready, willing and able to meet the patient's needs as recommended by the inter-professional team: Yes Name of Caregiver: Transportation Arrangements Transportation Arrangements: Car- to transport Handoff Communication: Handoff to: Primary Care Physician Primary Care Physician Name/Phone: Dr. Silvestre Chance- [phone] Additional Information: Discharge order written for today. [facility] will be seeing the patient for Home PT with a start of care date within 24-48 hours. Notified [facility] of the patients discharge home today. Discharge Information Row Name Admission (Current) from 08/14/[address] [facility] Start of Care -- Within 24-48 hours SIGNATURE: Mone Ramirez RN PATIENT NAME: Moira Suh DATE: August 15, 2024 TIME: 2:20 PM [facility] 08-15-2024 Note HNO ID: [id number] Author: MONE RAMIREZ RN Service: Care Management Author Type: Registered Nurse Type: Care Mgt Initial Assessment Filed: 08/15/2024 10:10 Note Text: CARE MANAGEMENT: ASSESSMENT AND DISCHARGE PLAN SERVICE DATE: August 15, 2024 SERVICE TIME: 10:10 AM PCP: Silvestre Chance DO Primary Contact: Extended Emergency Contact Information Primary Emergency Contact: Nelsno Suh Address: [address] [place], [place] [id number] [place] [address] Mobile Relation: Spouse Secondary Emergency Contact: Shi Boles Address: [address] [place] [address] [place] [id number] [place] [address] Mobile Relation: Daughter Admission Status: Extended Recovery Insurance Provider: [employer] HMO Discharge Planning requested by: Per Department Practice Potential Transition Plans Home OT/PT Advance Directives Current Advance Directive: Health Care Power of [employer]or, Living Will In Chart: No Current Living Arrangements and Support Lives with: Spouse/significant other Type of Residence: Private Residence (House) Does the patient have to climb stairs at home?: Yes, stairs outside the home, stairs within the home Support: Spouse/significant other How do you manage to accomplish the following: Independent: Ambulation, Bathe/Shower, Dress, Meals/Meal Prep, Going to the bathroom, Medication Management, Transportation to appointments/community Current Services/Equipment Current Post-Acute Service(s): DME Current DME Type: Walker, Cane Discharge Planning Patient Goal(s): Be able to go home [place] of Choice Explained: [place] of [place] Given: Yes Level of Care Discussed: Home Care Are you interested in bedside delivery of your medications? Yes Discharge Planning Participant(s): Patient Patient/Family Comments: Caregiver Assessment: Caregiver is ready, willing and able to meet the patient's needs as recommended by the inter-professional team: Yes Name of Caregiver: Transport at Discharge: Transportation Arrangements: Car Needs Prior to Discharge: Needs Prior to Discharge: To Be Determined Post-Acute Discharge Plan: Review of the chart and met with the patient. The patient lives in a 2 story home with her , bedroom on the first floor. PT- Home PT. Discussed PT recommendations with the patient. Referral to [facility] and they are able to accept. CM department will continue to follow for DC needs. SIGNATURE: Mone Ramirez RN PATIENT NAME: Moira Suh DATE: August 15, 2024 TIME: 10:10 AM [facility] 08-15-2024 Telephone encounter Note Date/Time: 08/15/2024 10:01 AM Spoke with nicolas Pizraro @ phone #: [phone] - Preferred # for contact: [phone] Have you received help from a home care company in the last 60 days? no Are you agreeable to [facility] services? yes What address will we be seeing you at? [address] [place], [place] [id number] Do you have any upcoming appointments or things we need to schedule around? no Do you have a teachable CG or can you manage your care independently? yes Who? Family Discharge today Notified to secure animals and weapons SELVIN Maki 08/15/2024 10:06 AM T [facility] 08-15-2024 Miscellaneous Notes Date/Time: 08/15/2024 10:01 AM Spoke with Moira, patient @ phone #: [phone] - Preferred # for contact: [phone] Have you received help from a home care company in the last 60 days? no Are you agreeable to [facility] services? yes What address will we be seeing you at? [facility] [place] [address] Do you have any upcoming appointments or things we need to schedule around? no Do you have a teachable CG or can you manage your care independently? yes Who? Family Discharge today Notified to secure animals and weapons SELVIN Maki 08/15/2024 10:06 AM documented in this encounter [facility] 08-15-2024 Note HNO ID: [id number] Author: NELA FERREIRA MD Service: Orthopaedic Surgery Author Type: Physician Type: Progress Notes Filed: 08/15/2024 09:30 Note Text: ORTHOPAEDIC POSTOP PROGRESS NOTE SERVICE DATE: 08/15/2024 SERVICE TIME: 9:29 AM Subjective Patient states that they are comfortable Well Controlled knee(s) pain. Mild incisional pain. Objective VITAL SIGNS: BP 120/73 Pulse (!) 59 Temp 36.7 ?C (98.1 ?F) (Oral) Resp 18 Ht 165.1 cm (5' 5) Wt 102.5 kg (225 lb 15.5 oz) SpO2 98% BMI 37.60 kg/m? INTAKE AND OUTPUT: Intake/Output Summary (Last 24 hours) at 08/15/2024 0929 Last data filed at 08/15/2024 0852 Gross per 24 hour Intake 3140 ml Output 1450 ml Net 1690 ml PHYSICAL EXAMINATION: Left Lower Extremity: Dorsalis pedis pulses palpable. Posterior tibial pulses palpable. Dorsi flexion 5/5. Plantar flexion 5/5. Extensor hallucis extension: 5/5. Sensory intact to light touch L1-S1. Dressing clean, dry, and intact. Surgical site no drainage and Silverlon intact. Problem Review and Assessment: Patient monitored, no new events overnight. LABS: Recent Labs 08/15/24 0451 08/14/24 1342 HB 11.5 12.6 HCT 33.1* 37.1 DATA: Diagnostic tests reviewed for today's visit: Most recent labs and imaging results. Assessment/Plan S/P Procedure(s) (LRB): ROBOTIC ASSISTED TOTAL KNEE ARTHROPLASTY (Left) on 08/14/2024 POSTOP PLAN: Physical Therapy evaluation DVT prophylaxis: with aspirin, additional anticoagulant is contraindicated due to bleeding risk and Intermittent pneumatic compression device (IPCD) Pain control Case Management for discharge planning Assessment AND Plan Morbid Obesity Class 3 Medication and Non-Pharmacologic VTE Prophylaxis/Anticoagulants Anticoagulant AND Antiplatelet Medications (From admission, onward) Start Dose Route Frequency Last Action Ordered Stop 08/15/24 0900 aspirin, enteric coated 81 mg tab(s) (Surgical Risk Categories) 81 mg PO 2 TIMES DAILY Given, 08/15 0807 08/14/24 1411 -- 08/14/24 1415 pneumatic compression sleeve(s) (fl,oh) VTE Prophylaxis: VTE prophylaxis appropriate POST OPERATIVE COMPLICATIONS: Complicated by: uneventful/none SIGNATURE: Nela Ferreira MD PATIENT NAME: Moira Suh DATE: August 15, 2024 TIME: 9:29 AM ETX#[id number] [facility] 08-14-2024 Note HNO ID: [id number] Author: ANA MARCANO PA-C Service: General Surgery Author Type: Physician Veterinary X Ray Operator Type: Progress Notes Filed: 08/14/2024 17:54 Note Text: POSTOP PROGRESS NOTE SERVICE DATE: 08/14/2024 SERVICE TIME: 5:13 PM Subjective CHIEF COMPLAINT: s/p L total knee replacement INTERVAL HISTORY OF PRESENT ILLNESS: This is a 74 year old female postop L total knee replacement with Dr. Ferreira. Patient states her pain is very minimal. She denies any questions or concerns at this time. Objective PHYSICAL EXAM: BP 131/70 Pulse 72 Temp (Src) 97.5 (Oral) Resp 16 Ht 5' 5 (1.65m) Wt 225 lb 15.5 oz (102.5kg) SpO2 98% BMI 37.60 kg/(m2). O2 Therapy: Room Air, Liters (Numeric Only): 2.00 Physical Exam Performed L LE-Iceman and PHILLY wrap in place. Patient is able to move toes and reports intact sensation on the operative side. Assessment AND Plan POSTOP PLANS: As indicated Proceed with Dr. Ferreira's post operative plan. Advised patient to reach out to nurse if issues occur. SIGNATURE: Ana Marcano PA-C PATIENT NAME: Moira Suh DATE: August 14, 2024 TIME: 5:13 PM [facility] 08-14-2024 Note HNO ID: [id number] Author: GUICHO BARNETT APRN.CRNA Service: Anesthesiology Author Type: Nurse Spin Tank Tender Type: Anesthesia Procedure Notes Filed: 08/14/2024 11:37 Note Text: ANESTHESIOLOGY PROCEDURE NOTE Spinal Block General Information Procedure Start Time/Medication Administration: 08/14/2024 11:00 AM Procedure End time: 08/14/2024 11:00 AM Patient location during procedure: OR Timeout Performed Pre-procedure: timeout performed Reason for Block: primary surgical anesthetic Staffing BUILDING ILLUMINATING ENGINEER: Guicho Barnett APRN.BUILDING ILLUMINATING ENGINEER Performed by: BUILDING ILLUMINATING ENGINEER Preparation Sterility Preparation: hand hygiene performed prior to procedure, sterile gloves, drapes, and procedure tray, surgical cap used, mask used, sterile drape used during line insertion, skin prep agent completely dried prior to procedure Sterility Technique Not Completely Performed Due to Extreme Emergency: No Site Prep: Betadine Procedure Details Patient Position: sitting Ultrasound Guided: No Monitoring: Pulse Ox and NIBP Approach: Midline Location: L3-4 Injection Technique: single-shot Needle Needle Type: pencil-tip Needle Gauge: 25 G Needle Length: 4 in CSF: CSF clear Assessment Events: tolerated well SIGNATURE: Guicho Barnett APRN.CRNA PATIENT NAME: Moira Suh DATE: August 14, 2024 TIME: 11:35 AM CSN: [id number] [facility] 08-14-2024 Note HNO ID: [id number] Author: AMBER ANDRES MD Service: Anesthesiology Author Type: Anesthesiologist Type: Anesthesia Procedure Notes Filed: 08/14/2024 09:46 Note Text: ANESTHESIOLOGY PROCEDURE NOTE Peripheral Nerve Block General Information Procedure Start Time/Medication Administration: 08/14/2024 9:42 AM Procedure End time: 08/14/2024 9:43 AM Patient location during procedure: pre-op Timeout Performed Pre-procedure: timeout performed Consent Obtained: Yes Patient identity confirmed: arm band and patient Reason for block: post-op pain management/at surgeon's request Staffing Anesthesiologist: Amber Andres MD Performed by: anesthesiologist Preparation Sterility Preparation: hand hygiene performed prior to procedure, sterile gloves, drapes, and procedure tray, surgical cap used, mask used, sterile drape used during line insertion, skin prep agent completely dried prior to procedure Site Prep: Chloraprep Pre-Procedure Neuro Exam Location: LLE Sensory: intact Motor: intact Procedure Details Patient Position: supine Monitoring: Pulse OX, EKG and NIBP Block Type Lower Extremity: distal femoral (adductor canal) Laterality: left Injection Technique: single-shot Ultrasound Guided: Yes Image in Chart: Yes Local Infiltration: Yes Needle Needle Gauge: 22 G Needle Length: 83 mm Needle Localization: ultrasound Test Dose Response: negative test dose Assessment Injection assessment: negative aspiration, no paresthesia on injection, incremental injection and local visualized surrounding nerve on ultrasound Paresthesia: none Post-Procedure Neuro Exam Expected Regional Anesthesia: Yes Medications Administered bupivacaine (PF) 0.5 % (5 mg/mL) injection - peripheral nerve block 10 mL - 08/14/2024 9:42:00 AM EPINEPHrine injection - OTHER 50 mcg - 08/14/2024 9:42:00 AM Comments For this procedure, I personally performed this procedure. Amber Andres MD SIGNATURE: Amber Andres MD PATIENT NAME: Moira Suh DATE: August 14, 2024 TIME: 9:46 AM CSN: [id number] [facility] 08-14-2024 Note HNO ID: [id number] Author: RADHA DAVIES RN Service: Nursing Author Type: Registered Nurse Type: Nursing Progress Note Filed: 08/14/2024 09:35 Note Text: Other: pt ready for or, call light in reach, Shaw called to bedside. [facility] 08-11-2024 Telephone encounter Note I called and left Moira a message on her cell phone. We will be good to proceed as long as the bite does not get worse. Sam Fabian PA-C [facility] Work Phone: 08-11-2024 Miscellaneous Notes I called and left Moira a message on her cell phone. We will be good to proceed as long as the bite does not get worse. Sam Fabian PA-C Patient calling with spider bite update 3 inches from wrist up her arm Swelling is still there and better in the am but worse at night No pain unless pushed on bite Surgery is scheduled 08/14 She does state that if the bite increases her risk if any complication, the she is willing to wait Please advise documented in this encounter [facility] 08-11-2024 Telephone encounter Note Patient calling with spider bite update 3 inches from wrist up her arm Swelling is still there and better in the am but worse at night No pain unless pushed on bite Surgery is scheduled 08/14 She does state that if the bite increases her risk if any complication, the she is willing to wait Please advise [facility] 08-08-2024 Instructions Slime Ku APRN.OVEN BAKER - 08/08/2024 3:31 PM EDT Images from the original note were not included. [facility] PATIENT PREOPERATIVE INSTRUCTIONS Nela Ferreira MD has scheduled you for your procedure at this surgery center: [facility]: [phone] -- [address] [address]. Please read below carefully for your personalized instructions. Arrival Time for Surgery: - The Surgery Center or hospital where you are having surgery will call the afternoon before surgery (or Sunday for Sunday surgery) with a scheduled arrival time. - If you have not heard by 4 pm, please contact the surgery center above. Dietary Restrictions: - No solid food after midnight. - You may have 12 ounces of clear liquids (water, clear juices such as apple juice or gatorade, carbonated beverages, clear tea, black coffee, jello) until 2 hours before scheduled arrival at facility. - Do not drink any alcohol after midnight the night before your surgery. - no milk/creamer or other additives like honey - no pulp juices Medications: Unless instructed differently below, stay on all of your medications until your surgery. If you start any new medications after today's visit, please contact your surgeon. Pre-Surgery Med Instructions Medication Instructions metoprolol succinate ER (TOPROL XL) 25 mg 24 hr tablet If you normally take this medication in the morning, take the morning of surgery. chgtsbl-liyh-xynuq-oreg-capryl 100 mg-150 mg- 50 mg-150 mg cap Hold 7 days before surgery. Last dose 08/05/24. OmegaGenics EPA-DHA 2400 (High Concentrate EPA/DHA liquid) (LearnSomething) Hold 7 days before surgery. Last dose 08/05/24. MAGNESIUM ORAL Do not take the day of surgery ascorbic acid, vitamin C, (VITAMIN C) 500 mg tablet Do not take the day of surgery B-Complex Plus (Pure Encapsulations) - 1qD stress/energy/hormones/detox/weigh t loss Hold 7 days before surgery. Last dose 08/05/24. CoQ10, Liposomal Ubiquinol, 200 mg cap Hold 7 days before surgery. Last dose 08/05/24. cholecalciferol (VITAMIN D3) 1,000 unit tab tablet Do not take the day of surgery Mupirocin Ointment Apply 1/2 inch of the mupirocin ointment with a Q-tip to both nostrils in the morning and afternoon for 5 consecutive days before surgery. If you are scheduled for a pre-op Covid-19 test, please do not apply mupirocin the morning of your test. You may apply it right after the test instead. If you are currently using a dfhz-vnn-rizg injectable or oral medication for diabetes or weight loss such as Dulaglutide (Trulicity), Exenatide (Byetta, Bydureon), Liraglutide (Victoza, Saxenda), Semaglutide (Ozempic, Wegovy, Rybelsus), or Tirzepatide (Mounjaro), the medicine should be stopped at least 7 days before surgery. These medicines can cause food to remain in your stomach for a very long time and increase the risks from surgery and anesthesia. Not stopping the medication for a long enough time may result in your surgery being rescheduled. If you start any new medications after today's visit, please contact the surgeon's office. Blood Thinning Medications: - Stop NSAIDS (Ibuprofen, Advil, Aleve, Motrin, Celebrex, Mobic, etc.) 7 days before surgery, as directed by your surgeon. - Stop Aspirin 7 days before surgery, as directed by your surgeon. - Stop herbal supplements 7 days before surgery. - You may take Tylenol (Acetaminophen) or any of your pain medications that do not contain aspirin or NSAIDS as needed. Important Reminders: - If you use CPAP/BIPAP, bring the machine with you to the surgery center. - If you are prescribed inhalers for breathing, continue using them. -Please be sure to brush your teeth and you can use mouth wash or rinse your mouth if dry. - Candy, mints, and tobacco products are NOT permitted the morning of surgery. - Hearing aids, dentures and glasses may be worn the morning of surgery. - If you have dentures or partials, please have a case to place them in or leave at home day of surgery. - NO jewelry, body piercings, makeup, hairpins or contacts are to be worn the day of surgery. If you develop symptoms such as a fever, cold, or flu, or have other changes to your health within TWO DAYS of scheduled surgery or the morning of surgery, please contact the surgery center above. Personal Belongings: -Please have photo ID and insurance cards. -If you do not have a copy of advance directives on file with us, please bring a copy with you on the day of surgery. - Leave ALL valuables and money at home or with family members. Please be aware that emergency situations arise, which may delay or change your surgical time. If this happens, we will notify you as soon as possible and regret any inconvenience. If you already have an Advance Directive, please fax a copy to [phone] or email to for it to be added to your chart. If you do not have an Advance Directive, you can find the appropriate form and more information at [email or web address]. We recommend that you complete the Advance Directive form found on the website and bring it with you the day of your surgery. It can be witnessed and scanned into your chart that day. Slime Ku APRN.OVEN BAKER documented in this encounter [facility] 08-08-2024 History and physical note Images from the original note were not included. [facility] HISTORY AND PHYSICAL EXAMINATION SERVICE DATE: 08/08/2024 SERVICE TIME: 4:17 PM PRIMARY CARE PHYSICIAN: Silvestre Chance DO Assessment Patient has the following medical conditions which may affect veronica-operative course: Hyperlipidemia Assessment: Compliant on supplements (coQ10). Follows with PCP. CAD (coronary artery disease) Assessment: S/p NSTEMI in 2015. Reports compliance to medication. Denies any heart palpitations, edema, chest pain, shortness of breath, syncope, activity intolerance, or dizziness. S/p CABG in 2015. Normal stress 11/2022 and echo 03/2022. Follows Cardiology. Office Visit with Amber Nash APRN.CNP (06/06/2024) She is optimized from a cardiac standpoint. She would be at low to moderate risk primarily for her age for her knee surgery. PAF (paroxysmal atrial fibrillation) (HCC) Assessment: post-op CABG, compliant on BB. Denies any heart palpitations, edema, chest pain, shortness of breath, syncope, activity intolerance, or dizziness. HR in office 83. Follows Cardiology. [id number] CHADS2-Vasc Score Breakdown 5 Total Score 1 Female 2 Age >= 75 years old 1 History of hypertension 1 History of vascular disease Ejection Fraction - Result: 61 % Date: 03/28/2022 Time: 15:29:39 Multinodular goiter Assessment: FNA completed, no further work up needed, denies compressive symptoms BMI 37.0-37.9, adult Assessment: Body mass index is 37.28 kg/m . Spider bite Assessment: Patient bite by spider about two weeks ago. Tiny scab on left wrist today. Still some swelling but no itching. Going to office 08/11 to get spider bite viewed by surgical team. ANESTHESIA FINDINGS: Intubation History: No history of difficult intubation. No abnormal airway history Significant Anesthesia Considerations: none Airway History: No history of difficult airway No abnormal airway history Cunningham Activity Status Index: METS: Walk indoors, such as around the house (1.75 METs) Do light work around the house, such as dusting or washing dishes (2.70 METs) Take care of self; that is eating, dressing, bathing, using the toilet (2.75 METs) Walk a block or two on level ground (2.75 METs) DASI Score: 9.95 Patient denies any chest pain or undue shortness of breath with the above physical activity. Clinical Frailty Scale: 3. Well, with treated comorbid disease STOP-Bang Score: Has or is being treated for high blood pressure BMI greater than 35 kg/m^2 Patient over 50 years old Denies snoring loudly Denies feeling tired, fatigued, or sleepy during the daytime Has not been observed to stop breathing or choking/gasping during sleep Does not have a large neck Non-male patient STOP-Bang Score: 3 I - PHYSICAL EVALUATION AIRWAY Patient intubated: No. Tracheostomy tube not present Mallampati: II. TM distance: >3 FB. Neck ROM: full ROM without neurological symptoms. Mouth opening: adequate. Short neck: no. Thick neck: no DENTAL Dental findings: teeth intact. II - ANESTHESIA PLAN Anesthetic plan additional comments: *PACC/TCI - anesthesia choice. Beta Reina Monitoring Plan Post Procedure Analgesic Plan Prepared for Surgery: optimally prepared for surgery. Labs and EKG reviewed and acceptable for procedure. CONSULTS: Patient does not require consults for optimization at this time Planned Anesthetic: anesthesia choice The Following Tests/Procedures Have Been Initiated: No orders of the defined types were placed in this encounter. REASON FOR VISIT: Moira Suh is a 74 year old female who is scheduled for Procedure(s): ROBOTIC ASSISTED TOTAL KNEE ARTHROPLASTY (Left) at the request of Dr. Nela Ferreira for consultation. My final recommendation will be communicated back to the requesting physician by way of shared medical record or letter. Subjective The patient has the following: COVID-19 Immunization Status Upcoming Covid-19 Vaccine () Postponed until 01/01/2025 01/02/2024 Postponed until 01/01/2025 by Hafsa Peace LPN (Declined at this time) 02/04/2021 Imm Admin: COVID-19 original vaccine, age 12+ yr, monovalent (PFIZER-BIONTECH - PURPLE TOP) 05/10/2020 Imm Admin: COVID-19 original vaccine, age 12+ yr, monovalent (PFIZER-BIONTECH - PURPLE TOP) Only the first 3 history entries have been loaded, but more history exists. CHIEF COMPLAINT: pre op HPI: Patient is a 74 year old female scheduled for pre anesthesia consultation for a procedure on 08/14/2024 at [facility]. Patient is presenting with left knee pain for years. Reports specific injuries of falling. Reports pain today of 0/10, described as aching, worsens with activity. Reports swelling, denies numbness or tingling. Has tried conservative methods with little relief. Patient denies other specific radiating, alleviating, or aggravating factors. REVIEW OF SYSTEMS: General: No weight loss, malaise or fevers. Neurological: Negative for: delirium, dementia, headaches, impaired sensorium, peripheral neuropathy, seizures, TIA and strokes. Respiratory: Negative for: asthma, bronchitis, COPD, current cough, bronchodilator used daily for the last 3 months, dyspnea, home oxygen, orthopnea, pneumonia within 6 weeks, tobacco use, URI < 2 weeks and obstructive sleep apnea. Cardiovascular: Positive for: CAD and hyperlipidemia Patient's last office visit with hat band attacher, Dr. Batista ([facility]), was 06/06/24. The following tests and/or procedures were performed: cardiac catheterization, cardiac stress test and echocardiogram. The following tests and/or procedures were not performed: cardiac stents. Negative for: abdominal aortic aneurysm, AICD/PPM, angina, anticoagulation therapy, arrhythmia, atrial fibrillation, chest pain, CHF, congenital heart defect, DVT/PE, hypertension, recent MN, murmur/valvular heart disease, PTCA, PVD, open heart surgery and valve surgery. GI: Negative for: abdominal pain, GERD, GI bleed <30 days, hepatitis, liver disease, nausea, vomiting and ETOH >2 drinks/day. : denies CKD Negative for: on dialysis, dysuria, flank pain, frequent urination, hematuria, renal failure and urinary tract infection. Endocrine: Negative for: diabetes mellitus, hyperthyroidism and hypothyroidism. Hematology: Negative for: anemia, bruises/bleeds easily, factor V Leiden, hemophilia, thrombocytopenia, von Willebrand disease, transfusion of at least 4 units within 72 hours prior to surgery and chronic anti-coagulation/platelet meds. Oncology: Negative for: CA metastasis, chemo within 30 days, disseminated cancer and radiotherapy within 90 days. Psych: No history of psychiatric symptoms or problems. Musculoskeletal: Negative for joint pain or swelling, back pain or muscle pain. Skin: Negative for lesions, rash and itching. Implanted Devices: No implanted devices. PAST MEDICAL HISTORY Diagnosis Date Atrial fibrillation (HCC) Coronary artery disease Holter monitor, abnormal extra beats Hypercholesteremia Hyperlipidemia Hypertension Insulin resistance 07/19/2017 Leiomyoma of uterus, unspecified Low HDL (under 40) PAST SURGICAL HISTORY Procedure Laterality Date CORONARY ARTERY BYPASS GRAFT HX 2016 3 vessel FNA WITH IMAGING 11/27/2012 U/S FNA bilateral thyroid PAST SURGICAL HISTORY OF age 28 1 ovary removed, 1 tube reconstructed from ectopic PAST SURGICAL HISTORY OF age 20 tendon repairs to wrists after going through glass door PAST SURGICAL HISTORY OF removal of uterine polyp TOTAL KNEE REPLACEMENT Right 01/02/2023 FAMILY HISTORY Problem Relation Age of Onset Thyroid Mother Hypertension Mother Prostate Cancer Father Thyroid Sister Social History Tobacco Use Smoking status: Former Current packs/day: 1.00 Average packs/day: 1 pack/day for 10.0 years (10.0 ttl pk-yrs) Types: Cigarettes Smokeless tobacco: Never Vaping Use Vaping status: Never Used Substance Use Topics Alcohol use: Yes Comment: socially Drug use: No Prior to Admission medications as of 08/08/24 1540 Medication Sig Last Dose Taking OTC PRODUCT Black Seed Oil - Capsules Yes OTC PRODUCT Lion's Seb Yes metoprolol succinate ER (TOPROL XL) 25 mg 24 hr tablet Take 1 tablet by mouth once daily. Yes pioiawd-jdwi-aeqkt-oreg-capryl 100 mg-150 mg- 50 mg-150 mg cap Take 1 tablet by mouth twice daily. Yes OmegaGenics EPA-DHA 2400 (High Concentrate EPA/DHA liquid) (LearnSomething) Take one teaspoon (5 ml) 1 times daily with food Yes MAGNESIUM ORAL Take 135 Units by mouth once daily. Takes 4 capsules daily Yes ascorbic acid, vitamin C, (VITAMIN C) 500 mg tablet Take 2,000 mg by mouth once daily. Yes B-Complex Plus (Pure Encapsulations) - 1qD stress/energy/hormones/detox/weigh t loss Take 1 capsule by mouth once daily. Yes CoQ10, Liposomal Ubiquinol, 200 mg cap Take 1 capsule by mouth daily with food. Yes cholecalciferol (VITAMIN D3) 1,000 unit tab tablet Take 1,000 Units by mouth once daily. Yes Medication Comments documented by Renee Edwards, PT on 01/05/2023 at 0756. Current per pt.09/28/15 11.2.23 - patient reports she was told that it is now okay to resume taking all supplements/meds. ALLERGIES Allergen Reactions Atorvastatin Calcium Myalgia Caused severe myalgias to bilateral thighs and across back Codeine Mental Status Change Can hear whats going on around her but she can't wake up Crestor [Rosuvastat* Myalgia 20 mg caused severe myalgias to upper thighs and across back Objective PHYSICAL EXAM: General: alert and oriented and healthy appearance. Pertinent negatives noted - not distressed. Skin: normal color, no rash or lesions. HEENT: EOM intact, pupils equal round and pupils reactive to light. Pertinent negatives noted - no carotid bruit. Cardiovascular: regular rate and rhythm, normal S1 and S2, no rub, murmurs, or gallop. Respiratory: normal breath sounds, no wheezes or crackles. No chest wall deformity or tenderness. Abdomen: bowel sounds present and soft. Pertinent negatives noted - not tender. Extremities: Positive for joint tenderness. Pertinent negatives noted - no cellulitis, no clubbing, no deformity, no edema, no joint swelling, no abnormal pulses, no ulcer, no vascular insufficiency and no varicose veins. Neurological: normal cognition and motor skills. Gait normal. No weakness or sensory deficit. PAIN ASSESSMENT: VITALS: BP 140/90 Pulse 83 Temp (Src) 97.2 (Temporal) Resp 14 Ht 5' 5 (1.65m) Wt 224 lb (101.6kg) SpO2 97% BMI 37.28 kg/(m^2). Diagnostic tests reviewed for today's visit: Lab Value Units Date High Low HB 14.6 g/dL 06/30/2024 15.5 11.5 HCT 43.7 % 06/30/2024 46.0 36.0 WBC 3.36 k/uL 06/30/2024 11.00 3.70 PLT 149 k/uL 06/30/2024 400 150 NA 138 mmol/L 06/30/2024 144 136 K 4.3 mmol/L 06/30/2024 5.1 3.7 GLUC 104 mg/dL 06/30/2024 99 74 BUN 12 mg/dL 06/30/2024 21 7 CREAT 0.52 mg/dL 06/30/2024 0.96 0.58 PTSEC No results within date range. INR No results within date range. APTT No results within date range. ALT No results within date range. AST No results within date range. TBILI No results within date range. TSH No results within date range. Lab Value Units Date High Low HCGQT No results within date range. UHCG No results within date range. HCG, BODY* No results within date range. Lab Value Units Date High Low ABORHD No results within date range. ABSCREEN No results within date range. Hemoglobin A1C (%) Date Value 09/28/2017 5.5 04/12/2017 5.3 12/13/2012 5.2 Recent Results (from the past 8760 hours) ECG COMPLETE Collection Time: 06/06/24 10:58 AM Result Value Ventricular Rate 70 Atrial Rate 70 P-R Interval 150 QRS Duration 72 QT Interval 394 QTC Calculation (Bazett) 425 Calculated P [place] 32 Calculated R [place] 4 Calculated T [place] 26 Impression NORMAL SINUS RHYTHM NORMAL ECG Confirmed by MD KRYTSINA, QARAB ([id number]) on 06/10/2024 6:46:15 PM Recent Results (from the past 32903 hours) ECHO Collection Time: 03/28/22 3:29 PM Impression CONCLUSIONS: - Technically difficult exam due to body habitus. - Exam indication: CAD - The left ventricle is small. Left ventricular systolic function is normal. EF = 61 5% (2D biplane) Grade I left ventricular diastolic dysfunction. - The right ventricle is normal in size. Right ventricular systolic function is normal. - There are no significant valvular abnormalities. - Exam was compared with the prior echocardiographic exam performed on 04/26/2016, no significant change. * * * Final * * * Instructions Given to Patient: Instructions located in the after visit summary. Patient given verbal and written preop instructions and voices comprehension and compliance. SIGNATURE: Slime Ku APRN.OVEN BAKER PATIENT NAME: Moira Suh DATE: August 08, 2024 TIME: 3:29 PM PAGER/CONTACT #: [facility] 08-08-2024 History and physical note Images from the original note were not included. [facility] HISTORY AND PHYSICAL EXAMINATION SERVICE DATE: 08/08/2024 SERVICE TIME: 4:17 PM PRIMARY CARE PHYSICIAN: Silvestre Chance DO Assessment Patient has the following medical conditions which may affect veronica-operative course: Hyperlipidemia Assessment: Compliant on supplements (coQ10). Follows with PCP. CAD (coronary artery disease) Assessment: S/p NSTEMI in 2016. Reports compliance to medication. Denies any heart palpitations, edema, chest pain, shortness of breath, syncope, activity intolerance, or dizziness. S/p CABG in 2015. Normal stress 11/2022 and echo 03/2022. Follows Cardiology. Office Visit with Amber Nash APRN.CNP (06/06/2024) She is optimized from a cardiac standpoint. She would be at low to moderate risk primarily for her age for her knee surgery. PAF (paroxysmal atrial fibrillation) (HCC) Assessment: post-op CABG, compliant on BB. Denies any heart palpitations, edema, chest pain, shortness of breath, syncope, activity intolerance, or dizziness. HR in office 83. Follows Cardiology. [id number] CHADS2-Vasc Score Breakdown 5 Total Score 1 Female 2 Age >= 75 years old 1 History of hypertension 1 History of vascular disease Ejection Fraction - Result: 61 % Date: 03/28/2022 Time: 15:29:39 Multinodular goiter Assessment: FNA completed, no further work up needed, denies compressive symptoms BMI 37.0-37.9, adult Assessment: Body mass index is 37.28 kg/m . Spider bite Assessment: Patient bite by spider about two weeks ago. Tiny scab on left wrist today. Still some swelling but no itching. Going to office 08/11 to get spider bite viewed by surgical team. ANESTHESIA FINDINGS: Intubation History: No history of difficult intubation. No abnormal airway history Significant Anesthesia Considerations: none Airway History: No history of difficult airway No abnormal airway history Cunningham Activity Status Index: METS: Walk indoors, such as around the house (1.75 METs) Do light work around the house, such as dusting or washing dishes (2.70 METs) Take care of self; that is eating, dressing, bathing, using the toilet (2.75 METs) Walk a block or two on level ground (2.75 METs) DASI Score: 9.95 Patient denies any chest pain or undue shortness of breath with the above physical activity. Clinical Frailty Scale: 3. Well, with treated comorbid disease STOP-Bang Score: Has or is being treated for high blood pressure BMI greater than 35 kg/m^2 Patient over 50 years old Denies snoring loudly Denies feeling tired, fatigued, or sleepy during the daytime Has not been observed to stop breathing or choking/gasping during sleep Does not have a large neck Non-male patient STOP-Bang Score: 3 I - PHYSICAL EVALUATION AIRWAY Patient intubated: No. Tracheostomy tube not present Mallampati: II. TM distance: >3 FB. Neck ROM: full ROM without neurological symptoms. Mouth opening: adequate. Short neck: no. Thick neck: no DENTAL Dental findings: teeth intact. II - ANESTHESIA PLAN Anesthetic plan additional comments: *PACC/TCI - anesthesia choice. Beta Reina Monitoring Plan Post Procedure Analgesic Plan Prepared for Surgery: optimally prepared for surgery. Labs and EKG reviewed and acceptable for procedure. CONSULTS: Patient does not require consults for optimization at this time Planned Anesthetic: anesthesia choice The Following Tests/Procedures Have Been Initiated: No orders of the defined types were placed in this encounter. REASON FOR VISIT: Moira Suh is a 74 year old female who is scheduled for Procedure(s): ROBOTIC ASSISTED TOTAL KNEE ARTHROPLASTY (Left) at the request of Dr. Nela Ferreira for consultation. My final recommendation will be communicated back to the requesting physician by way of shared medical record or letter. Subjective The patient has the following: COVID-19 Immunization Status Upcoming Covid-19 Vaccine () Postponed until 01/01/2025 01/02/2024 Postponed until 01/01/2025 by Hafsa Peace LPN (Declined at this time) 02/04/2021 Imm Admin: COVID-19 original vaccine, age 12+ yr, monovalent (PFIZER-BIONTECH - PURPLE TOP) 05/10/2020 Imm Admin: COVID-19 original vaccine, age 12+ yr, monovalent (PFIZER-BIONTECH - PURPLE TOP) Only the first 3 history entries have been loaded, but more history exists. CHIEF COMPLAINT: pre op HPI: Patient is a 74 year old female scheduled for pre anesthesia consultation for a procedure on 08/14/2024 at [facility]. Patient is presenting with left knee pain for years. Reports specific injuries of falling. Reports pain today of 0/10, described as aching, worsens with activity. Reports swelling, denies numbness or tingling. Has tried conservative methods with little relief. Patient denies other specific radiating, alleviating, or aggravating factors. REVIEW OF SYSTEMS: General: No weight loss, malaise or fevers. Neurological: Negative for: delirium, dementia, headaches, impaired sensorium, peripheral neuropathy, seizures, TIA and strokes. Respiratory: Negative for: asthma, bronchitis, COPD, current cough, bronchodilator used daily for the last 3 months, dyspnea, home oxygen, orthopnea, pneumonia within 6 weeks, tobacco use, URI < 2 weeks and obstructive sleep apnea. Cardiovascular: Positive for: CAD and hyperlipidemia Patient's last office visit with hat band attacher, Dr. Batista ([facility]), was 06/06/24. The following tests and/or procedures were performed: cardiac catheterization, cardiac stress test and echocardiogram. The following tests and/or procedures were not performed: cardiac stents. Negative for: abdominal aortic aneurysm, AICD/PPM, angina, anticoagulation therapy, arrhythmia, atrial fibrillation, chest pain, CHF, congenital heart defect, DVT/PE, hypertension, recent MN, murmur/valvular heart disease, PTCA, PVD, open heart surgery and valve surgery. GI: Negative for: abdominal pain, GERD, GI bleed <30 days, hepatitis, liver disease, nausea, vomiting and ETOH >2 drinks/day. : denies CKD Negative for: on dialysis, dysuria, flank pain, frequent urination, hematuria, renal failure and urinary tract infection. Endocrine: Negative for: diabetes mellitus, hyperthyroidism and hypothyroidism. Hematology: Negative for: anemia, bruises/bleeds easily, factor V Leiden, hemophilia, thrombocytopenia, von Willebrand disease, transfusion of at least 4 units within 72 hours prior to surgery and chronic anti-coagulation/platelet meds. Oncology: Negative for: CA metastasis, chemo within 30 days, disseminated cancer and radiotherapy within 90 days. Psych: No history of psychiatric symptoms or problems. Musculoskeletal: Negative for joint pain or swelling, back pain or muscle pain. Skin: Negative for lesions, rash and itching. Implanted Devices: No implanted devices. PAST MEDICAL HISTORY Diagnosis Date Atrial fibrillation (HCC) Coronary artery disease Holter monitor, abnormal extra beats Hypercholesteremia Hyperlipidemia Hypertension Insulin resistance 07/19/2017 Leiomyoma of uterus, unspecified Low HDL (under 40) PAST SURGICAL HISTORY Procedure Laterality Date CORONARY ARTERY BYPASS GRAFT HX 2016 3 vessel FNA WITH IMAGING 11/27/2012 U/S FNA bilateral thyroid PAST SURGICAL HISTORY OF age 28 1 ovary removed, 1 tube reconstructed from ectopic PAST SURGICAL HISTORY OF age 20 tendon repairs to wrists after going through glass door PAST SURGICAL HISTORY OF removal of uterine polyp TOTAL KNEE REPLACEMENT Right 01/02/2023 FAMILY HISTORY Problem Relation Age of Onset Thyroid Mother Hypertension Mother Prostate Cancer Father Thyroid Sister Social History Tobacco Use Smoking status: Former Current packs/day: 1.00 Average packs/day: 1 pack/day for 10.0 years (10.0 ttl pk-yrs) Types: Cigarettes Smokeless tobacco: Never Vaping Use Vaping status: Never Used Substance Use Topics Alcohol use: Yes Comment: socially Drug use: No Prior to Admission medications as of 08/08/24 1540 Medication Sig Last Dose Taking OTC PRODUCT Black Seed Oil - Capsules Yes OTC PRODUCT Lion's Seb Yes metoprolol succinate ER (TOPROL XL) 25 mg 24 hr tablet Take 1 tablet by mouth once daily. Yes yermumk-vogj-mglcx-oreg-capryl 100 mg-150 mg- 50 mg-150 mg cap Take 1 tablet by mouth twice daily. Yes OmegaGenics EPA-DHA 2400 (High Concentrate EPA/DHA liquid) (LearnSomething) Take one teaspoon (5 ml) 1 times daily with food Yes MAGNESIUM ORAL Take 135 Units by mouth once daily. Takes 4 capsules daily Yes ascorbic acid, vitamin C, (VITAMIN C) 500 mg tablet Take 2,000 mg by mouth once daily. Yes B-Complex Plus (Pure Encapsulations) - 1qD stress/energy/hormones/detox/weigh t loss Take 1 capsule by mouth once daily. Yes CoQ10, Liposomal Ubiquinol, 200 mg cap Take 1 capsule by mouth daily with food. Yes cholecalciferol (VITAMIN D3) 1,000 unit tab tablet Take 1,000 Units by mouth once daily. Yes Medication Comments documented by Renee Edwards, PT on 01/05/2023 at 0756. Current per pt.09/28/15 11.2.23 - patient reports she was told that it is now okay to resume taking all supplements/meds. ALLERGIES Allergen Reactions Atorvastatin Calcium Myalgia Caused severe myalgias to bilateral thighs and across back Codeine Mental Status Change Can hear whats going on around her but she can't wake up Crestor [Rosuvastat* Myalgia 20 mg caused severe myalgias to upper thighs and across back Objective PHYSICAL EXAM: General: alert and oriented and healthy appearance. Pertinent negatives noted - not distressed. Skin: normal color, no rash or lesions. HEENT: EOM intact, pupils equal round and pupils reactive to light. Pertinent negatives noted - no carotid bruit. Cardiovascular: regular rate and rhythm, normal S1 and S2, no rub, murmurs, or gallop. Respiratory: normal breath sounds, no wheezes or crackles. No chest wall deformity or tenderness. Abdomen: bowel sounds present and soft. Pertinent negatives noted - not tender. Extremities: Positive for joint tenderness. Pertinent negatives noted - no cellulitis, no clubbing, no deformity, no edema, no joint swelling, no abnormal pulses, no ulcer, no vascular insufficiency and no varicose veins. Neurological: normal cognition and motor skills. Gait normal. No weakness or sensory deficit. PAIN ASSESSMENT: VITALS: BP 140/90 Pulse 83 Temp (Src) 97.2 (Temporal) Resp 14 Ht 5' 5 (1.65m) Wt 224 lb (101.6kg) SpO2 97% BMI 37.28 kg/(m^2). Diagnostic tests reviewed for today's visit: Lab Value Units Date High Low HB 14.6 g/dL 06/30/2024 15.5 11.5 HCT 43.7 % 06/30/2024 46.0 36.0 WBC 3.36 k/uL 06/30/2024 11.00 3.70 PLT 149 k/uL 06/30/2024 400 150 NA 138 mmol/L 06/30/2024 144 136 K 4.3 mmol/L 06/30/2024 5.1 3.7 GLUC 104 mg/dL 06/30/2024 99 74 BUN 12 mg/dL 06/30/2024 21 7 CREAT 0.52 mg/dL 06/30/2024 0.96 0.58 PTSEC No results within date range. INR No results within date range. APTT No results within date range. ALT No results within date range. AST No results within date range. TBILI No results within date range. TSH No results within date range. Lab Value Units Date High Low HCGQT No results within date range. UHCG No results within date range. HCG, BODY* No results within date range. Lab Value Units Date High Low ABORHD No results within date range. ABSCREEN No results within date range. Hemoglobin A1C (%) Date Value 09/28/2017 5.5 04/12/2017 5.3 12/13/2012 5.2 Recent Results (from the past 8760 hours) ECG COMPLETE Collection Time: 06/06/24 10:58 AM Result Value Ventricular Rate 70 Atrial Rate 70 P-R Interval 150 QRS Duration 72 QT Interval 394 QTC Calculation (Bazett) 425 Calculated P [place] 32 Calculated R [place] 4 Calculated T [place] 26 Impression NORMAL SINUS RHYTHM NORMAL ECG Confirmed by MD KRYSTINA, QARAB ([id number]) on 06/10/2024 6:46:15 PM Recent Results (from the past 81724 hours) ECHO Collection Time: 03/28/22 3:29 PM Impression CONCLUSIONS: - Technically difficult exam due to body habitus. - Exam indication: CAD - The left ventricle is small. Left ventricular systolic function is normal. EF = 61 5% (2D biplane) Grade I left ventricular diastolic dysfunction. - The right ventricle is normal in size. Right ventricular systolic function is normal. - There are no significant valvular abnormalities. - Exam was compared with the prior echocardiographic exam performed on 04/26/2016, no significant change. * * * Final * * * Instructions Given to Patient: Instructions located in the after visit summary. Patient given verbal and written preop instructions and voices comprehension and compliance. SIGNATURE: Slime Ku APRN.OVEN BAKER PATIENT NAME: Moira Suh DATE: August 08, 2024 TIME: 3:29 PM PAGER/CONTACT #: documented in this encounter [facility] 08-01-2024 Telephone encounter Note Patient informed and rescheduled. [facility] 08-01-2024 Miscellaneous Notes Patient informed and rescheduled. 2 weeks is a good timeframe, to make sure they are no complications. Sam Fabian PA-C Patient saw primary care. The hives were due to a spider bite. She was told to wait 2 weeks. Do you feel this timing is appropriate for her to reschedule? The hives are gone, just a few red dots where they were. documented in this encounter [facility] 07-31-2024 Telephone encounter Note 2 weeks is a good timeframe, to make sure they are no complications. Sam Fabian PA-C [facility] Work Phone: 07-31-2024 Telephone encounter Note Patient saw primary care. The hives were due to a spider bite. She was told to wait 2 weeks. Do you feel this timing is appropriate for her to reschedule? The hives are gone, just a few red dots where they were. [facility] 07-30-2024 Note HNO ID: [id number] Author: SANDY MERIDA APRN.OVEN BAKER Service: ? Author Type: Nurse Practitioner Type: Progress Notes Filed: 07/30/2024 13:55 Note Text: This is a 74 year old female who presents today with: Moira is a 74-year-old female with a history of HTN, presenting for evaluation of hives HISTORY OF PRESENT ILLNESS: Hives: - Onset after suspected spider bite while handling laundry. - Initial presentation included a couple small puncture brady on the left wrist/forearm, followed by widespread hives about 2 hours later. - Hives were described as bright red and covered in welts, affecting the arms, abdomen, genitals, thighs, back, ears, and scalp. - Treated with a homeopathic remedy which provided relief. - Hives have mostly resolved, but some itching persists. - Denies need for additional medication for itching. -continues with some mild swelling over left wrist but no pain, no decreased ROM, no warmth, no redness Hypertension: - Reports fluctuating blood pressure readings, with higher readings in medical settings. - Recent readings include 132/72 mmHg at the hat band attacher's office and 170s SBP after the hive situation - Believes blood pressure is affected by anxiety and stress, particularly in medical settings, doesn't like going to doctors and is often rushing to get there on time. -per patient, cardiology felt it could be related to chronic pain with her knee -does check Bps at home and they are intermittently elevated there as well. Knee Surgery: - Scheduled knee surgery was canceled due to the hives. - Concerned about the risk of infection with the current symptoms. - Plans to reschedule surgery once symptoms are completely resolved. - Has standing orders for UTI tests and plans to complete one before the rescheduled surgery to make sure she doesn't have infection going into surgery. Denies any current symptoms. PAST MEDICAL HISTORY: PAST MEDICAL HISTORY Diagnosis Date Atrial fibrillation (HCC) Coronary artery disease Holter monitor, abnormal extra beats Hypercholesteremia Hyperlipidemia Hypertension Insulin resistance 07/19/2017 Leiomyoma of uterus, unspecified Low HDL (under 40) PAST SURGICAL HISTORY Procedure Laterality Date CORONARY ARTERY BYPASS GRAFT HX 2016 3 vessel FNA WITH IMAGING 11/27/2012 U/S FNA bilateral thyroid PAST SURGICAL HISTORY OF age 28 1 ovary removed, 1 tube reconstructed from ectopic PAST SURGICAL HISTORY OF age 20 tendon repairs to wrists after going through glass door PAST SURGICAL HISTORY OF removal of uterine polyp TOTAL KNEE REPLACEMENT Right 01/02/2023 ALLERGIES Atorvastatin Calcium, Codeine, and Crestor [Rosuvastatin Calcium] MEDICATIONS Current Outpatient Medications Medication Sig OTC PRODUCT Black Seed Oil - Capsules OTC PRODUCT Adebayo Grigsby metoprolol succinate ER (TOPROL XL) 25 mg 24 hr tablet Take 1 tablet by mouth once daily. vnjskoo-xrgt-yxitc-oreg-capryl 100 mg-150 mg- 50 mg-150 mg cap Take 1 tablet by mouth twice daily. OmegaGenics EPA-DHA 2400 (High Concentrate EPA/DHA liquid) (LearnSomething) Take one teaspoon (5 ml) 1 times daily with food MAGNESIUM ORAL Take 135 Units by mouth once daily. Takes 4 capsules daily ascorbic acid, vitamin C, (VITAMIN C) 500 mg tablet Take 2,000 mg by mouth once daily. B-Complex Plus (Pure Encapsulations) - 1qD stress/energy/hormones/detox/weigh t loss Take 1 capsule by mouth once daily. CoQ10, Liposomal Ubiquinol, 200 mg cap Take 1 capsule by mouth daily with food. cholecalciferol (VITAMIN D3) 1,000 unit tab tablet Take 1,000 Units by mouth once daily. No current facility-administered medications for this visit. FAMILY HISTORY Problem Relation Age of Onset Thyroid Mother Hypertension Mother Prostate Cancer Father Thyroid Sister Social History Tobacco Use Smoking status: Former Current packs/day: 1.00 Average packs/day: 1 pack/day for 10.0 years (10.0 ttl pk-yrs) Types: Cigarettes Smokeless tobacco: Never Vaping Use Vaping status: Never Used Substance Use Topics Alcohol use: Yes Comment: socially Drug use: No REVIEW OF SYSTEMS Skin: (+) pruritus, (+) dryness Musculoskeletal: (+) left wrist swelling, (+) chronic knee pain Psychiatric: (+) anxiety See HPI (anxiety is situational, denies anxiety at home , no regular stressors) EXAM: BP 130/72 (BP Site: Left Arm, BP Position: Sitting, BP Cuff Size: Large Adult) Pulse 74 Resp 12 Wt 101.8 kg (224 lb 6.4 oz) SpO2 99% BMI 37.34 kg/m? PHYSICAL EXAM: General Appearance: Well appearing, alert, in no acute distress, well-hydrated, well nourished.. Skin: Left wrist still has resolving scab with no signs of infection; no welts or red/pink patchy areas noted on extremities or back. She does have upper back dry skin and what appears as AK areas, but no hives Lungs clear to auscultation. No wheezing, rhonchi, rales.. Heart: RRR wit (more content not included)... [facility] 07-30-2024 History of Present illness Narrative This is a 74 year old female who presents today with: Moira is a 74-year-old female with a history of HTN, presenting for evaluation of hives HISTORY OF PRESENT ILLNESS: Hives: - Onset after suspected spider bite while handling laundry. - Initial presentation included a couple small puncture brady on the left wrist/forearm, followed by widespread hives about 2 hours later. - Hives were described as bright red and covered in welts, affecting the arms, abdomen, genitals, thighs, back, ears, and scalp. - Treated with a homeopathic remedy which provided relief. - Hives have mostly resolved, but some itching persists. - Denies need for additional medication for itching. -continues with some mild swelling over left wrist but no pain, no decreased ROM, no warmth, no redness Hypertension: - Reports fluctuating blood pressure readings, with higher readings in medical settings. - Recent readings include 132/72 mmHg at the hat band attacher's office and 170s SBP after the hive situation - Believes blood pressure is affected by anxiety and stress, particularly in medical settings, doesn't like going to doctors and is often rushing to get there on time. -per patient, cardiology felt it could be related to chronic pain with her knee -does check Bps at home and they are intermittently elevated there as well. Knee Surgery: - Scheduled knee surgery was canceled due to the hives. - Concerned about the risk of infection with the current symptoms. - Plans to reschedule surgery once symptoms are completely resolved. - Has standing orders for UTI tests and plans to complete one before the rescheduled surgery to make sure she doesn't have infection going into surgery. Denies any current symptoms. PAST MEDICAL HISTORY: PAST MEDICAL HISTORY Diagnosis Date Atrial fibrillation (HCC) Coronary artery disease Holter monitor, abnormal extra beats Hypercholesteremia Hyperlipidemia Hypertension Insulin resistance 07/19/2017 Leiomyoma of uterus, unspecified Low HDL (under 40) PAST SURGICAL HISTORY Procedure Laterality Date CORONARY ARTERY BYPASS GRAFT HX 2016 3 vessel FNA WITH IMAGING 11/27/2012 U/S FNA bilateral thyroid PAST SURGICAL HISTORY OF age 28 1 ovary removed, 1 tube reconstructed from ectopic PAST SURGICAL HISTORY OF age 20 tendon repairs to wrists after going through glass door PAST SURGICAL HISTORY OF removal of uterine polyp TOTAL KNEE REPLACEMENT Right 01/02/2023 ALLERGIES Atorvastatin Calcium, Codeine, and Crestor [Rosuvastatin Calcium] MEDICATIONS Current Outpatient Medications Medication Sig OTC PRODUCT Black Seed Oil - Capsules OTC PRODUCT Delmar's Seb metoprolol succinate ER (TOPROL XL) 25 mg 24 hr tablet Take 1 tablet by mouth once daily. ryydgcp-pjwx-wdpwt-oreg-capryl 100 mg-150 mg- 50 mg-150 mg cap Take 1 tablet by mouth twice daily. OmegaGenics EPA-DHA 2400 (High Concentrate EPA/DHA liquid) (LearnSomething) Take one teaspoon (5 ml) 1 times daily with food MAGNESIUM ORAL Take 135 Units by mouth once daily. Takes 4 capsules daily ascorbic acid, vitamin C, (VITAMIN C) 500 mg tablet Take 2,000 mg by mouth once daily. B-Complex Plus (Pure Encapsulations) - 1qD stress/energy/hormones/detox/weigh t loss Take 1 capsule by mouth once daily. CoQ10, Liposomal Ubiquinol, 200 mg cap Take 1 capsule by mouth daily with food. cholecalciferol (VITAMIN D3) 1,000 unit tab tablet Take 1,000 Units by mouth once daily. No current facility-administered medications for this visit. FAMILY HISTORY Problem Relation Age of Onset Thyroid Mother Hypertension Mother Prostate Cancer Father Thyroid Sister Social History Tobacco Use Smoking status: Former Current packs/day: 1.00 Average packs/day: 1 pack/day for 10.0 years (10.0 ttl pk-yrs) Types: Cigarettes Smokeless tobacco: Never Vaping Use Vaping status: Never Used Substance Use Topics Alcohol use: Yes Comment: socially Drug use: No REVIEW OF SYSTEMS Skin: (+) pruritus, (+) dryness Musculoskeletal: (+) left wrist swelling, (+) chronic knee pain Psychiatric: (+) anxiety See HPI (anxiety is situational, denies anxiety at home , no regular stressors) EXAM: BP 130/72 (BP Site: Left Arm, BP Position: Sitting, BP Cuff Size: Large Adult) Pulse 74 Resp 12 Wt 101.8 kg (224 lb 6.4 oz) SpO2 99% BMI 37.34 kg/m PHYSICAL EXAM: General Appearance: Well appearing, alert, in no acute distress, well-hydrated, well nourished.. Skin: Left wrist still has resolving scab with no signs of infection; no welts or red/pink patchy areas noted on extremities or back. She does have upper back dry skin and what appears as AK areas, but no hives Lungs clear to auscultation. No wheezing, rhonchi, rales.. Heart: RRR without murmur, gallop, or rubs. No ectopy. Extremities: No deformitiesk skin discoloration, clubbing or cyanosis. Good capillary refill. Left wrist puffy, nonpitting, without erythema or tenderness ASSESSMENT/PLAN 1. Urticaria (L50.9) - Resolved; no visible hives on examination, only residual dry skin. - Advised to maintain hydration to support skin healing. - Patient to monitor for any recurrence of hives. -will cc orthopedic surgeon on note, from PCP standpoint clear for surgery but would prefer to reschedule once pruritus and all symptoms related are resolved. 2. Spider bite wound, accidental or unintentional, initial encounter (T63.301A) - Monitor for signs of infection such as increased redness, warmth, or pain. 3. Essential (primary) hypertension (I10) - Blood pressure readings variable, with recent measurements ranging from 130/72 mmHg to SBP in 170s. asymptomatic - Discussed potential impact of anxiety and pain on blood pressure elevations. - Advised patient to continue home monitoring of blood pressure at different times and under varying conditions to identify trends. Keep log, take to cardiology -discussed risks of increased BP, denies any symptoms currently -will cc hat band attacher as well regarding blood pressures , BP today stable Data reviewed: Cardiology last visit notes Vital signs Discussed treatment plan and patient voices understanding. Patient's questions answered appropriately. Denies any other needs or medication for pruritis Return to the office as scheduled or as needed for worsening/no improvement. Sandy Merida APRN.OVEN BAKER Recording using [employer] software for draft documentation of the visit was discussed with the patient/authorized in store marketing representative; all questions welcomed and answered. Patient/authorized in store marketing representative agreed to proceed documented in this encounter [facility] 07-29-2024 Telephone encounter Note Pt called and is notified of providers message and instructions. Pt voices understanding. She states she is taking the homeopathic medication. Jessie Aleman RN [facility] 07-29-2024 Miscellaneous Notes Pt called and is notified of providers message and instructions. Pt voices understanding. She states she is taking the homeopathic medication. Jessie Aleman RN Attempted to contact patient with no answer or vm. Please try again Latonia Romano MA Can taking claritin or zyrtec or benadryl (will make her sleepy). Keep appointment tomorrow for recheck, seek care sooner if severe worsening symptoms or any swelling of the tongue, throat, difficulty breathing, swallowing. Nica Rodríguez PA-C 07/29/2024 Pt called in and reports she was supposed to have a knee arthroplasty with Dr Ferreira, but he cancelled it because the broke out in hives. She states she thinks it was because of a spider bite. She said she was doing laundry in her basement and she was picking up the laundry and throwing it over he left arm. She thought it was a mosquito bite at first, but then notices two puncture diaz. Pt states she got hives on her scalp and all over her body, torso, back, buttocks, both legs, both arms, and places she couldn't even see. She states she took a homeopathic remedy called Histamine something and it got rid of most of them. Pt reports all the hives on her stomach and arms are gone. She reports the ones on her scalp are still there. Pt will have to have her check other areas. She said the surgeon wanted her to be seen to see why she got the hives before he rescheduled the surgery. Pt scheduled with Sandy Merida NP tomorrow at [address] pm[address] if [address] Chance could tell her what she should be doing for the hives. Jessie Aleman RN documented in this encounter [facility] 07-29-2024 Telephone encounter Note Attempted to contact patient with no answer or vm. Please try again Latonia Romano MA [facility] 07-29-2024 Telephone encounter Note Can taking claritin or zyrtec or benadryl (will make her sleepy). Keep appointment tomorrow for recheck, seek care sooner if severe worsening symptoms or any swelling of the tongue, throat, difficulty breathing, swallowing. Nica Rodríguez PA-C 07/29/2024 [facility] Work Phone: 07-29-2024 Telephone encounter Note Pt called in and reports she was supposed to have a knee arthroplasty with Dr Ferreira, but he cancelled it because the broke out in hives. She states she thinks it was because of a spider bite. She said she was doing laundry in her basement and she was picking up the laundry and throwing it over he left arm. She thought it was a mosquito bite at first, but then notices two puncture diaz. Pt states she got hives on her scalp and all over her body, torso, back, buttocks, both legs, both arms, and places she couldn't even see. She states she took a homeopathic remedy called Histamine something and it got rid of most of them. Pt reports all the hives on her stomach and arms are gone. She reports the ones on her scalp are still there. Pt will have to have her check other areas. She said the surgeon wanted her to be seen to see why she got the hives before he rescheduled the surgery. Pt scheduled with Sandy Merida NP tomorrow at 1 pm[address] P [address] if Dr Chance could tell her what she should be doing for the hives. Jessie Aleman RN [facility] 07-18-2024 History of Present illness Narrative Radiology Service Progress Note PATIENT NAME: Moira Suh DATE OF SERVICE: July 18, 2024 TIME: 5:37 PM PATIENT IDENTITY VERIFICATION COMPLETED USING TWO (2) IDENTIFIERS: Name and Date of confirmed by patient verbally and Name and Date of confirmed by identification band. FALL SCREENING: Has the patient had 2 falls in the last year or 1 fall with injury or currently using an Ambulatory Assistive Device (Walker, Cane, Wheelchair, Crutches, etc.)? No PATIENT GENDER DATA: Assigned female at . status: : No status: NO. PATIENT RELEVANT IMPLANT DATA REVIEWED: Yes PATIENT PRESENTS WITH AN IMPLANTABLE OR ATTACHED RN CLINICAL TRIALS: No RADIOLOGY DEPARTMENT: CT; Exam(s) Completed: Lower extremity PERIPHERAL IV DATA: Not applicable SIGNED BY: RT Nicolás(Petrona) July 18, 2024 5:37 PM documented in this encounter [facility] 07-18-2024 Note HNO ID: [id number] Author: INDIRA PHAM RT(Petrona) Service: Radiology Author Type: Technologist Type: Progress Notes Filed: 07/18/2024 17:37 Note Text: Radiology Service Progress Note PATIENT NAME: Moira Suh DATE OF SERVICE: July 18, 2024 TIME: 5:37 PM PATIENT IDENTITY VERIFICATION COMPLETED USING TWO (2) IDENTIFIERS: Name and Date of confirmed by patient verbally and Name and Date of confirmed by identification band. FALL SCREENING: Has the patient had 2 falls in the last year or 1 fall with injury or currently using an Ambulatory Assistive Device (Walker, Cane, Wheelchair, Crutches, etc.)? No PATIENT GENDER DATA: Assigned female at . status: : No status: NO. PATIENT RELEVANT IMPLANT DATA REVIEWED: Yes PATIENT PRESENTS WITH AN IMPLANTABLE OR ATTACHED RN CLINICAL TRIALS: No RADIOLOGY DEPARTMENT: CT; Exam(s) Completed: Lower extremity PERIPHERAL IV DATA: Not applicable SIGNED BY: RT Nicolás(R) July 18, 2024 5:37 PM [facility] 07-17-2024 Instructions Amber Nash APRN.CNP - 07/17/2024 2:13 PM EDT PLAN AND RECOMMENDATIONS: The Hormone Reset by Dr Beti Johansen Follow up 5 months CONTACT INFORMATION: Amber Nash APRN.CNP Cardiology Nurse Practitioner Section of Regional Cardiology [facility] Dept of Cardiovascular Medicine [facility] [place] [address] [address] Office Office documented in this encounter [facility] 07-17-2024 Note HNO ID: [id number] Author: AMBER NASH APRN.CNP Service: ? Author Type: Nurse Practitioner Type: Progress Notes Filed: 07/18/2024 07:55 Note Text: Heart and Vascular [place] [facility] Department of Cardiovascular Medicine SECTION OF CLINICAL CARDIOLOGY OUTPATIENT VISIT DATE July 17, 2024 OUTPATIENT VISIT TYPE ESTABLISHED PRIMARY CARE PHYSICIAN: Silvestre Chance [address] [place] [address] REFERRING PHYSICIAN: No referring provider defined for this encounter. CHIEF COMPLAINT: No chief complaint on file. HISTORY OF PRESENT ILLNESS: Ms. Suh is a 74 year old female with PMH of CAD/CABG x 3 ( LLANOS-LAD, SVG-LCX, SVG-RCA), hyperlipidemia, elevated LP(a), vitamin D deficiency, who presents today for a cardiovascular medicine follow-up visit after I saw her in early June. She is due to have knee surgery the end of July. She denies shortness of breath, chest pain, palpitations, dizziness, lightheadedness, lower extremity edema, PND, orthopnea, presyncope, syncope, or claudication symptoms Subjective PAST MEDICAL HISTORY Diagnosis Date Atrial fibrillation (HCC) Coronary artery disease Holter monitor, abnormal extra beats Hypercholesteremia Hyperlipidemia Hypertension Insulin resistance 07/19/2017 Leiomyoma of uterus, unspecified Low HDL (under 40) PAST SURGICAL HISTORY Procedure Laterality Date CORONARY ARTERY BYPASS GRAFT HX 2015 3 vessel FNA WITH IMAGING 11/27/2012 U/S FNA bilateral thyroid PAST SURGICAL HISTORY OF age 28 1 ovary removed, 1 tube reconstructed from ectopic PAST SURGICAL HISTORY OF age 20 tendon repairs to wrists after going through glass door PAST SURGICAL HISTORY OF removal of uterine polyp TOTAL KNEE REPLACEMENT Right 01/02/2023 Social History Tobacco Use Smoking status: Former Current packs/day: 1.00 Average packs/day: 1 pack/day for 10.0 years (10.0 ttl pk-yrs) Types: Cigarettes Smokeless tobacco: Never Vaping Use Vaping status: Never Used Substance Use Topics Alcohol use: Yes Comment: socially Drug use: No FAMILY HISTORY Problem Relation Age of Onset Thyroid Mother Hypertension Mother Prostate Cancer Father Thyroid Sister ALLERGIES: ALLERGIES Allergen Reactions Atorvastatin Calcium Myalgia Caused severe myalgias to bilateral thighs and across back Codeine Mental Status Change Can hear whats going on around her but she can't wake up Crestor [Rosuvastat* Myalgia 20 mg caused severe myalgias to upper thighs and across back MEDICATIONS: iv contrast (will be provided with radiology test) MRI Brain Inject, intravenously, once for 1 dose.No IV access, insert saline lock prior to beginning of sedation, infusion, injection of imaging exam.Discontinue saline lock post exam. If Pt. has a central line or IVAD, may access for administration according to line specific nursing protocol.Once exam is complete flush line and de-access according to line specific nursing protocol in the MR contrast administration guidelines link OTC PRODUCT Black Seed Oil - Capsules OTC PRODUCT Adebayo Grigsby metoprolol succinate ER (TOPROL XL) 25 mg 24 hr tablet Take 1 tablet by mouth once daily. lumhwez-bila-ndcnk-oreg-capryl 100 mg-150 mg- 50 mg-150 mg cap Take 1 tablet by mouth twice daily. OmegaGenics EPA-DHA 2400 (High Concentrate EPA/DHA liquid) (LearnSomething) Take one teaspoon (5 ml) 1 times daily with food MAGNESIUM ORAL Take 135 Units by mouth once daily. Takes 4 capsules daily ascorbic acid, vitamin C, (VITAMIN C) 500 mg tablet Take 2,000 mg by mouth once daily. B-Complex Plus (Pure Encapsulations) - 1qD stress/energy/hormones/detox/weigh t loss Take 1 capsule by mouth once daily. CoQ10, Liposomal Ubiquinol, 200 mg cap Take 1 capsule by mouth daily with food. cholecalciferol (VITAMIN D3) 1,000 unit tab tablet Take 1,000 Units by mouth once daily. REVIEW OF SYSTEMS: CARD: See HPI GENERAL: Negative for: Weight loss or gain, Fever and/or Chills HEENT: Negative for: Headache, Impaired Vision, Glasses, Hearing Impairment, Ringing in Ears, Nosebleeds, Bleeding Gums NECK: Negative for: Swelling, Pain, Stiffness RESPIRATORY: Negative for: Cough, Blood in Sputum, Shortness of breath, Wheezing, Apnea GASTROINTESTINAL: Negative for: Nausea, Vomiting, Diarrhea, Blood in stool, or Dark black stools MUSCULOSKELETAL: Negative for: Muscle or joint pain, Stiffness , Joint swelling NEUROLOGIC: Negative for: focal numbness/weakness, headaches, visual changes, ataxia, speech/language loss HEMATOLOGICAL/LYMPHATIC: Negative for: Easy bruising , Easy bleeding Objective PHYSICAL EXAMINATION: There were no vitals taken for this visit. General: Well appearing, in no acute distress. Skin: No clubbing, no cyanosis. Eyes: Extra ocular movements intact Oropharynx: Teeth in good repair. Neck: No jugular venous (more content not included)... [facility] 07-17-2024 History of Present illness Narrative Images from the original note were not included. Heart [facility] V[facility] [place] [facility] Department of Cardiovascular Medicine SECTION OF CLINICAL CARDIOLOGY OUTPATIENT VISIT DATE July 17, 2024 OUTPATIENT VISIT TYPE ESTABLISHED PRIMARY CARE PHYSICIAN: Silvestre Chance [address] [place] [address] REFERRING PHYSICIAN: No referring provider defined for this encounter. CHIEF COMPLAINT: No chief complaint on file. HISTORY OF PRESENT ILLNESS: Ms. Suh is a 74 year old female with PMH of CAD/CABG x 3 ( LLANOS-LAD, SVG-LCX, SVG-RCA), hyperlipidemia, elevated LP(a), vitamin D deficiency, who presents today for a cardiovascular medicine follow-up visit after I saw her in early June. She is due to have knee surgery the end of July. She denies shortness of breath, chest pain, palpitations, dizziness, lightheadedness, lower extremity edema, PND, orthopnea, presyncope, syncope, or claudication symptoms Subjective PAST MEDICAL HISTORY Diagnosis Date Atrial fibrillation (HCC) Coronary artery disease Holter monitor, abnormal extra beats Hypercholesteremia Hyperlipidemia Hypertension Insulin resistance 07/19/2017 Leiomyoma of uterus, unspecified Low HDL (under 40) PAST SURGICAL HISTORY Procedure Laterality Date CORONARY ARTERY BYPASS GRAFT HX 2016 3 vessel FNA WITH IMAGING 11/27/2012 U/S FNA bilateral thyroid PAST SURGICAL HISTORY OF age 28 1 ovary removed, 1 tube reconstructed from ectopic PAST SURGICAL HISTORY OF age 20 tendon repairs to wrists after going through glass door PAST SURGICAL HISTORY OF removal of uterine polyp TOTAL KNEE REPLACEMENT Right 01/02/2023 Social History Tobacco Use Smoking status: Former Current packs/day: 1.00 Average packs/day: 1 pack/day for 10.0 years (10.0 ttl pk-yrs) Types: Cigarettes Smokeless tobacco: Never Vaping Use Vaping status: Never Used Substance Use Topics Alcohol use: Yes Comment: socially Drug use: No FAMILY HISTORY Problem Relation Age of Onset Thyroid Mother Hypertension Mother Prostate Cancer Father Thyroid Sister ALLERGIES: ALLERGIES Allergen Reactions Atorvastatin Calcium Myalgia Caused severe myalgias to bilateral thighs and across back Codeine Mental Status Change Can hear whats going on around her but she can't wake up Crestor [Rosuvastat* Myalgia 20 mg caused severe myalgias to upper thighs and across back MEDICATIONS: iv contrast (will be provided with radiology test) MRI Brain Inject, intravenously, once for 1 dose.No IV access, insert saline lock prior to beginning of sedation, infusion, injection of imaging exam.Discontinue saline lock post exam. If Pt. has a central line or IVAD, may access for administration according to line specific nursing protocol.Once exam is complete flush line and de-access according to line specific nursing protocol in the MR contrast administration guidelines link OTC PRODUCT Black Seed Oil - Capsules OTC PRODUCT Adebayo Grigsby metoprolol succinate ER (TOPROL XL) 25 mg 24 hr tablet Take 1 tablet by mouth once daily. vzwrlwc-yczj-abino-oreg-capryl 100 mg-150 mg- 50 mg-150 mg cap Take 1 tablet by mouth twice daily. OmegaGenics EPA-DHA 2400 (High Concentrate EPA/DHA liquid) (LearnSomething) Take one teaspoon (5 ml) 1 times daily with food MAGNESIUM ORAL Take 135 Units by mouth once daily. Takes 4 capsules daily ascorbic acid, vitamin C, (VITAMIN C) 500 mg tablet Take 2,000 mg by mouth once daily. B-Complex Plus (Pure Encapsulations) - 1qD stress/energy/hormones/detox/weigh t loss Take 1 capsule by mouth once daily. CoQ10, Liposomal Ubiquinol, 200 mg cap Take 1 capsule by mouth daily with food. cholecalciferol (VITAMIN D3) 1,000 unit tab tablet Take 1,000 Units by mouth once daily. REVIEW OF SYSTEMS: CARD: See HPI GENERAL: Negative for: Weight loss or gain, Fever and/or Chills HEENT: Negative for: Headache, Impaired Vision, Glasses, Hearing Impairment, Ringing in Ears, Nosebleeds, Bleeding Gums NECK: Negative for: Swelling, Pain, Stiffness RESPIRATORY: Negative for: Cough, Blood in Sputum, Shortness of breath, Wheezing, Apnea GASTROINTESTINAL: Negative for: Nausea, Vomiting, Diarrhea, Blood in stool, or Dark black stools MUSCULOSKELETAL: Negative for: Muscle or joint pain, Stiffness , Joint swelling NEUROLOGIC: Negative for: focal numbness/weakness, headaches, visual changes, ataxia, speech/language loss HEMATOLOGICAL/LYMPHATIC: Negative for: Easy bruising , Easy bleeding Objective PHYSICAL EXAMINATION: There were no vitals taken for this visit. General: Well appearing, in no acute distress. Skin: No clubbing, no cyanosis. Eyes: Extra ocular movements intact Oropharynx: Teeth in good repair. Neck: No jugular venous distention, no carotid bruits, carotids have a normal upstroke. Lungs: Clear to auscultation bilaterally, no wheezing or rhonchi. Heart: Regular rhythm, S1, S2 normal, no murmur. No peripheral edema . Grade 2/4 distal pulses bilaterally. Neuro: Oriented to person, place and time, alert, cooperative, gait coordinated. CARDIOVASCULAR MEDICINE TESTING: No Cardiovascular testing perfomed today. Last EKG Result Conclusion ECG COMPLETE Collected: 06/06/2024 10:58 AM (Final result) Impression: NORMAL SINUS RHYTHM NORMAL ECG Confirmed by MD KRYSTINA, QAB ([id number]) on 06/10/2024 6:46:15 PM There were no tests performed for review. I personally interviewed, confirmed and edited the above information if obtained by others. Conclusion: Preparing for knee surgery (I25.10) Coronary artery disease involving [place] coronary artery of [place] heart without angina pectoris (primary encounter diagnosis) Comment: no ischemic symptoms Plan: no further work up Reiki session completed (I48.0) PAF (paroxysmal atrial fibrillation) ([facility]) Comment: regular rhythm today Plan: no change in meds. PLAN AND RECOMMENDATIONS: The Hormone Reset by Dr Beti Johansen Follow up 5 months CONTACT INFORMATION: Amber Nash APRN.SUMEET Cardiology Nurse Practitioner Section of Regional Cardiology [place] Dept of Cardiovascular Medicine [facility] Heart [facility] [place] [address] [place] [address] Office Office This note was partially generated using [employer] voice recognition system and may contain errors related to that system including grammar, punctuation, spelling, and words that may be inappropriate documented in this encounter [facility] 07-16-2024 History of Present illness Narrative Images from the original note were not included. Neurological [place] [facility] NEURO-ONCOLOGY VIRTUAL VISIT NOTE I have communicated my name and active licensure. The patient's identity and physical location were verified at the time of this visit. Either the patient or their legal in store marketing representative has been informed of the risks and benefits of -- and alternatives to -- treatment through a remote evaluation and consents to proceed with the evaluation remotely. This is a virtual visit using [employer] Zoom Video Visit. It required patient-provider interaction for the medical decision making as documented below. 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 Found during work up when she had episodes of amnesia. She last saw Dr. Ibarra on 07/26/23 who recommended observation. INTERVAL HISTORY : 07/16/24 Presents today for follow-up with new MRI brain for review. Since last visit, she is left knee replacement on July 29, 2024. SOCIAL HISTORY: Social History Tobacco Use Smoking status: Former Current packs/day: 1.00 Average packs/day: 1 pack/day for 10.0 years (10.0 ttl pk-yrs) Types: Cigarettes Smokeless tobacco: Never Vaping Use Vaping status: Never Used Substance Use Topics Alcohol use: Yes Comment: socially Drug use: No PAST MEDICAL HISTORY Diagnosis Date Atrial fibrillation (HCC) Coronary artery disease Holter monitor, abnormal extra beats Hypercholesteremia Hyperlipidemia Hypertension Insulin resistance 07/19/2017 Leiomyoma of uterus, unspecified Low HDL (under 40) FAMILY HISTORY Problem Relation Age of Onset Thyroid Mother Hypertension Mother Prostate Cancer Father Thyroid Sister Current Outpatient Medications Medication Sig mupirocin (BACTROBAN) 2 % ointment Apply 0.5 inch with cotton swab (Q-tip) to each nostril in the morning and evening for 5 days prior to and including day of surgery. OTC PRODUCT Black Seed Oil - Capsules OTC PRODUCT Memeon's Seb metoprolol succinate ER (TOPROL XL) 25 mg 24 hr tablet Take 1 tablet by mouth once daily. npvkdmf-uugn-dkkbi-oreg-capryl 100 mg-150 mg- 50 mg-150 mg cap Take 1 tablet by mouth twice daily. OmegaGenics EPA-DHA 2400 (High Concentrate EPA/DHA liquid) (LearnSomething) Take one teaspoon (5 ml) 1 times daily with food MAGNESIUM ORAL Take 135 Units by mouth once daily. Takes 4 capsules daily ascorbic acid, vitamin C, (VITAMIN C) 500 mg tablet Take 2,000 mg by mouth once daily. B-Complex Plus (Pure Encapsulations) - 1qD stress/energy/hormones/detox/weigh t loss Take 1 capsule by mouth once daily. CoQ10, Liposomal Ubiquinol, 200 mg cap Take 1 capsule by mouth daily with food. cholecalciferol (VITAMIN D3) 1,000 unit tab tablet Take 1,000 Units by mouth once daily. No current facility-administered medications for this visit. REVIEW OF SYSTEMS: Neurological : No complaint of headache No complaint of tinnitus No complaint of decreased hearing No complaint of diplopia No complaints of blurred vision. No complaint of arm/leg numbness No problem with limb coordination No complaint of syncope No complaints of seizures. No complaints of memory changes or disorientation. General : Constitutional: No recent fever or weight loss. Eyes: No history of glaucoma or cataracts ENMT: No recent ear infection, nasal congestion, mouth sores or sore throat. CV: No history of chest pain, palpitations or leg swelling Respiratory: No history of SOB, wheezing or recent cough. Gastrointestinal: No history of nausea, vomiting, dysphagia or abdominal pain. Genitourinary: No history of hematuria or dysuria. Musculoskeletal: No complaint of arthritis, unstable gait or arm/leg weakness Psychiatric: No history of hallucinations, depression, or anxiety Objective PHYSICAL EXAMINATION: VIDEO EXAM: (if completed, performed via video enabled technology) NEUROLOGICAL EXAM: Higher integrative functions: Oriented to person, place & time. Memory: Good recent and remote. Attention Span and Concentration: Good. Language: Accurate naming of objects. Good comprehension. Fund of Knowledge: Good. 3rd,4th,6th CN: full extraocular movements. No reports double vision IMAGING STUDIES: MRI Brain WO/W IVCON MRI Report MRI BRAIN WO/W IVCON Exam End: 07/11/2024 2:05 PM (Final result) Narrative: * * *Final Report* * * DATE OF EXAM: Jul 11 2024 2:00PM [facility] [id number] - MRI BRAIN WO/W IVCON / PROCEDURE REASON: Benign neoplasm of meninges (HCC) * * * * Physician Interpretation * * * * EXAMINATION: MRI BRAIN WO/W IVCON CLINICAL HISTORY: 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 MQ: [id number] Contrast: 10 mL Elucirem IV COMPARISON: Brain MRI 07/20/2023, demonstrating prominent likely meningioma in right inferior frontal lobe RESULT: Acute Change: There is no evidence of restricted diffusion to suggest an acute infarct. Hemorrhage: No evidence of prior parenchymal hemorrhage on the susceptibility weighted images. Mass Lesion/ Mass Effect: Redemonstrated is previously seen avidly enhancing extra-axial mass abutting the right orbital floor of the anterior cranial fossa. Using 3-D MPR techniques to coregister identical planes to 07/20/2023, there is no significant change, to within half a millimeter. Maximal orthogonal measurements remain about 27 x 27 x 21 mm. There is a slight dural tail. There is minimal adjacent parenchymal reaction. Mass effect is local, with no herniation or shift. There is no laura hypercellularity. There are no laura internal calcifications or hemorrhagic products. Over the left posterior frontal lobe there is a similar dural based enhancing lesion projecting about 6 mm off of the dural surface over a base diameter of about 12 mm, and is also grossly stable. No other similar extra-axial enhancement is present to suggest other synchronous lesion. There is no similar extra-axial enhancement to suggest synchronous lesion elsewhere. Chronic Change: The white matter is within normal limits of signal intensity for age. Parenchyma: No significant volume loss for age. The brain parenchyma is otherwise within normal limits of signal intensity and morphology. Ventricles: Normal caliber and morphology. Skull Base: Hypothalamic and pituitary region are grossly normal. Craniocervical junction is normal. No significant marrow replacement process. Vasculature: Major intracranial arterial structures, and dural venous sinuses show typical flow void, suggesting patency by spin echo criteria. Other: The visualized paranasal sinuses and mastoid air cells are clear. The orbits and extracranial soft tissues are unremarkable. Impression: IMPRESSION: 1. STABLE MODERATELY-LARGE RIGHT ORBITAL FRONTAL MENINGIOMA, DETAILED 2. STABLE SMALL LEFT FRONTAL MENINGIOMA 3. NO OTHER SUSPICIOUS SIGNAL ABNORMALITY OR ENHANCEMENT Churn Drill Operator: PSCB Transcribe Date/Time: Jul 11 2024 2:35P Dictated by : WEST MEDINA MD This examination was interpreted and the report reviewed and electronically signed by: WEST MEDINA MD on Jul 11 2024 2:42PM EST KPS and ECOG Provider Data Form MEDICAL DECISION MAKING Assessment & Plan 1. 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 Left frontal meningioma on observation - MRI brain today appears stable - Images reviewed with the patient - Recommend follow up appointment with myself via and new MRI brain in 12 months at [facility] - Patient does not wish to get MRIs annually due to contrast concerns, discussed at length about the contrast and how it is recommended, alternatively discussed how we could do MRIs without contrast although this wouldn't give us a clear picture of the meningiomas. Patient at this time is agreeable to MRI in one year and will decide if she wants contrast at that time - Follow up annually with ophthalmology in six months to alternate with MRIs - Reviewed signs and symptoms that would prompt sooner evaluation - The patient has our contact information and was advised to call if new symptoms, questions or concerns arise prior to next scheduled visit. - All questions were answered. I spent a total of 35 minutes on the date of the service which included preparing to see the patient, [id number] patient care, completing clinical documentation, obtaining and/or reviewing separately obtained history, performing a medically appropriate examination, counseling and educating the patient/family/caregiver, ordering medications, tests, or procedures, communicating with other HCPs (not separately reported), independently interpreting results (not separately reported), communicating results to the patient/family/caregiver, and care coordination (not separately reported) Facundo Temple APRN.CNP Certified Nurse Practitioner cc: Sonia Ibarra MD--EPIC documented in this encounter [facility] 07-16-2024 Note HNO ID: [id number] Author: FACUNDO TEMPLE APRN.CNP Service: ? Author Type: Nurse Practitioner Type: Progress Notes Filed: 07/16/2024 13:39 Note Text: Neurological [place] [facility] NEURO-ONCOLOGY VIRTUAL VISIT NOTE I have communicated my name and active licensure. The patient's identity and physical location were verified at the time of this visit. Either the patient or their legal in store marketing representative has been informed of the risks and benefits of -- and alternatives to -- treatment through a remote evaluation and consents to proceed with the evaluation remotely. This is a virtual visit using [employer] Video Visit. It required patient-provider interaction for the medical decision making as documented below. 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 Found during work up when she had episodes of amnesia. She last saw Dr. Ibarra on 07/26/23 who recommended observation. INTERVAL HISTORY : 07/16/24 Presents today for follow-up with new MRI brain for review. Since last visit, she is left knee replacement on July 29, 2024. SOCIAL HISTORY: Social History Tobacco Use Smoking status: Former Current packs/day: 1.00 Average packs/day: 1 pack/day for 10.0 years (10.0 ttl pk-yrs) Types: Cigarettes Smokeless tobacco: Never Vaping Use Vaping status: Never Used Substance Use Topics Alcohol use: Yes Comment: socially Drug use: No PAST MEDICAL HISTORY Diagnosis Date Atrial fibrillation (HCC) Coronary artery disease Holter monitor, abnormal extra beats Hypercholesteremia Hyperlipidemia Hypertension Insulin resistance 07/19/2017 Leiomyoma of uterus, unspecified Low HDL (under 40) FAMILY HISTORY Problem Relation Age of Onset Thyroid Mother Hypertension Mother Prostate Cancer Father Thyroid Sister Current Outpatient Medications Medication Sig mupirocin (BACTROBAN) 2 % ointment Apply 0.5 inch with cotton swab (Q-tip) to each nostril in the morning and evening for 5 days prior to and including day of surgery. OTC PRODUCT Black Seed Oil - Capsules OTC PRODUCT Delmar's Seb metoprolol succinate ER (TOPROL XL) 25 mg 24 hr tablet Take 1 tablet by mouth once daily. rvvzvho-ixoj-wjizp-oreg-capryl 100 mg-150 mg- 50 mg-150 mg cap Take 1 tablet by mouth twice daily. OmegaGenics EPA-DHA 2400 (High Concentrate EPA/DHA liquid) (LearnSomething) Take one teaspoon (5 ml) 1 times daily with food MAGNESIUM ORAL Take 135 Units by mouth once daily. Takes 4 capsules daily ascorbic acid, vitamin C, (VITAMIN C) 500 mg tablet Take 2,000 mg by mouth once daily. B-Complex Plus (Pure Encapsulations) - 1qD stress/energy/hormones/detox/weigh t loss Take 1 capsule by mouth once daily. CoQ10, Liposomal Ubiquinol, 200 mg cap Take 1 capsule by mouth daily with food. cholecalciferol (VITAMIN D3) 1,000 unit tab tablet Take 1,000 Units by mouth once daily. No current facility-administered medications for this visit. REVIEW OF SYSTEMS: Neurological : No complaint of headache No complaint of tinnitus No complaint of decreased hearing No complaint of diplopia No complaints of blurred vision. No complaint of arm/leg numbness No problem with limb coordination No complaint of syncope No complaints of seizures. No complaints of memory changes or disorientation. General : Constitutional: No recent fever or weight loss. Eyes: No history of glaucoma or cataracts ENMT: No recent ear infection, nasal congestion, mouth sores or sore throat. CV: No history of chest pain, palpitations or leg swelling Respiratory: No history of SOB, wheezing or recent cough. Gastrointestinal: No history of nausea, vomiting, dysphagia or abdominal pain. Genitourinary: No history of hematuria or dysuria. Musculoskeletal: No complaint of arthritis, unstable gait or arm/leg weakness Psychiatric: No history of hallucinations, depression, or anxiety Objective PHYSICAL EXAMINATION: VIDEO EXAM: (if completed, performed via video enabled technology) NEUROLOGICAL EXAM: Higher integrative functions: Oriented to person, place AND time. Memory: Good recent and remote. Attention Span and Concentration: Good. Language: Accurate naming of objects. Good comprehension. Fund of Knowledge: Good. 3rd,4th,6th CN: full extraocular movements. No reports double vision IMAGING STUDIES: MRI Brain WO/W IVCON MRI Report MRI BRAIN WO/W IVCON Exam End: 07/11/2024 2:05 PM (Final result) Narrative: * * *Final Report* * * DATE OF EXAM: Jul 11 2024 2:00PM [facility] [id number] - MRI BRAIN WO/W IVCON / PROCEDURE REASON: Benign neoplasm of meninges (HCC) * * * * Physician Interpretation * * * * EXAMINATION: MRI BRAIN WO/W IV (more content not included)... [facility] 07-15-2024 Telephone encounter Note TOTAL JOINT COMPLETE CARE PROGRAM PRE-OPERATIVE TEACHING Service Date: 07/15/2024 Service Time: 12:02 PM Date of : 1950 Gender: female Date of Surgery: 07/29/24 Procedure: Left 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 Complete Care Program was discussed with the patient: Product Marketing Specialist Identification: Patient identified a respiratory care practitioner to help when discharged to home: Home Environment: Home Layout: 2 story, Entry Steps: 2, Bedroom Location: 1st floor, Bathroom Location: 1st floor, and walk in shower. Pt owns walker, cane. Discussed with patient importance of attending joint education class and provided date and times of class: YES declined, had TKA 12/25 Patient received Joint Education Binder: Yes Patient plans discharge home with [facility]. SIGNATURE: SELVIN Sousa PATIENT NAME: Moira Suh DATE: July 15, 2024 TIME: 7:22 AM [facility] 07-15-2024 Miscellaneous Notes TOTAL JOINT COMPLETE CARE PROGRAM PRE-OPERATIVE TEACHING Service Date: 07/15/2024 Service Time: 12:02 PM Date of : 1950 Gender: female Date of Surgery: 07/29/24 Procedure: Left 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 Complete Care Program was discussed with the patient: Product Marketing Specialist Identification: Patient identified a respiratory care practitioner to help when discharged to home: Home Environment: Home Layout: 2 story, Entry Steps: 2, Bedroom Location: 1st floor, Bathroom Location: 1st floor, and walk in shower. Pt owns walker, cane. Discussed with patient importance of attending joint education class and provided date and times of class: YES declined, had TKA 12/25 Patient received Joint Education Binder: Yes Patient plans discharge home with [facility]. SIGNATURE: SELVIN Sousa PATIENT NAME: Moira Suh DATE: July 15, 2024 TIME: 7:22 AM documented in this encounter [facility] 07-14-2024 Instructions Nela Ferreira MD - 07/14/2024 2:48 PM EDT Instructions for Blood Management Decreasing the need for blood transfusions after surgery can help your body heal faster and help your body fight infection better. Blood Management will check your blood and iron levels to see if you would benefit from having treatment to help increase your blood counts before your surgery. What do you need to do? 1. Go and have your labs (CBC, Ferritin, Iron Studies) drawn today or within the next three days at the nearest [facility] lab. If you would like, you can go today, following your appointment, to any of our outpatient labs. 2. If it is determined that you would benefit from treatment, someone from the Blood Management Department will call you. If we call you, we will then give further instructions for iron replacement. If you do not hear from Blood Management, your lab results were okay and you do not need additional iron replacement. Questions? Contact us: If you are having surgery at [facility] or If you are having surgery at [place], [place], [facility] , [place], [place], [place], [facility], or [facility] documented in this encounter [facility] 07-14-2024 Note HNO ID: [id number] Author: NELA FERREIRA MD Service: ? Author Type: Physician Type: Progress Notes Filed: 08/11/2024 12:47 Note Text: CONSULT ORTHOPAEDIC: KNEE PRIMARY CARE PHYSICIAN: Silvestre Chance DO REFERRING PROVIDER: No referring provider defined for this encounter. ASSESSMENT AND PLAN Impression: Left Knee Severe Degenerative Osteoarthritis, Primary Diagnoses: Osteoarthritis left knee Based upon the evaluation today and after discussions with Moira Suh, Moira Suh has significant, worsening pain at the knee. This pain is increased with activity and weight bearing, and interferes with activities of daily living. These symptoms have continued despite a number of non-surgical measures, including a trial of oral pain medication and attempted physical therapy/ structured exercise program and/or use of an assistive device/ bracing (for at least 12 weeks unless the patient was unable to tolerate these measures as discussed above). At this point, the patient will not benefit from further PT due to the severity of their condition. The patient's physical examination is consistent with limitations in range of motion, pain with passive range of motion, crepitus, and effusion/ synovitis. These examination findings are corroborated by imaging findings of joint space narrowing, periarticular osteophyte formation, and subchondral sclerosis. The patient has been treated by the practice and all reasonable treatments have failed to control the disease, which causes significant pain and limits activities of daily living. The patient has failed conservative treatment and joint replacement surgery was discussed and agreed upon by both provider and patient. We will proceed with surgical management to improve function and relieve pain refractory to non-surgical measures. Left Primary Total Knee Arthroplasty as evidenced by progressive symptoms. Progressive Symptoms Include: Pain impacting sleep or causing fatigue Pain worsened by weight bearing Pain effecting living situation Pain limiting ability to stay fit and healthy. Surgery Details Date and Location: At [facility] on date to be determined. Implants: Faiza Robotic: Yes Predicted LOS: 2 days (Inpatient candidate) Informed consent obtained in the office today. The risks and benefits of surgery were discussed at length including but not limited to the risks of infection, bleeding, nerve or blood vessel injury, deep venous thrombosis, pulmonary embolism, arthrofibrosis, reflex sympathetic dystrophy, , paralysis, knee or patellar dislocation, extensor mechanism injury, bone fracture, component loosening or failure requiring re-operation or amputation. Informed consent was obtained and the patient was scheduled for surgery. We also discussed fixation strategies including cement and cementless fixation and advantages and disadvantages of each. We discussed the details of the surgery as well as rehabilitation. All questions were answered, and the patient wishes to proceed with surgery.. The patient has been ordered: CT scan for preoperative planning and anemia screen will be ordered CONSULTS: IMPACT/PACE Consult for preoperative clearance. Total Joint Arthroplasty: Risk Calculator Moira Suh has a 24.86% chance of NOT returning home at discharge for a Primary total Knee replacement. Moira's estimated Length of Stay is 2 days (Inpatient candidate). Moira's 30 day chance of readmission is 3.96%. Readmission Probability 3.96 % (within 30 days following surgery) Estimated LOS 2 days Discharge Disposition Probability D/C to Home 75.14 % D/C to SNF 24.86 % These calculations are based on the following factors: - 74 years of age - sex is not male - BMI of 37.28 kg/m2 - NarxCare score of 60 - 0 hospitalizations in the last 12 months - history of heart disease - no history of diabetes - no history of COPD - history of anemia - preoperative ambulation: impaired community distances - 2 step(s) to enter home - bed location is on the first floor - bath location is on the first floor - caregiver is consistent - home is not more than 150 miles away - PROMIS-10 Mental Health T score 50+ - Marital status: Risk Factors for Total Knee Arthroplasty (TKA) Major Risk Factors Obesity Moderate Risk High: BMI > 40 Moderate: BMI 30-40 Normal: BMI < 30 Diabetes normal High: A1C > 8 Moderate: A1C 7-8 Normal: A1C < 7 Hx of DVT / PE normal High: dx of DVT / PE Normal: no dx of DVT / PE Smoking normal High: Current smoker Normal: Non smoker Narcotics Use normal High:NarxCare >=300 Moderate: 100-299 Normal: 0-99 Depression Unknown Risk High: PHQ-9 >14 Moderate: PHQ-9 5-14 Normal: PHQ-9 < 5 Area Deprivation Index (ABBI) Unknown Risk High: ABBI Score > 75 Moderate: ABBI 50-75 Normal: ABBI < 50 Obesity: weight management recommended BMI Readings from Last 3 Encounters: 06/30 (more content not included)... [facility] 07-14-2024 History of Present illness Narrative Images from the original note were not included. CONSULT ORTHOPAEDIC: KNEE PRIMARY CARE PHYSICIAN: Silvestre Chance DO REFERRING PROVIDER: No referring provider defined for this encounter. ASSESSMENT & PLAN Impression: Left Knee Severe Degenerative Osteoarthritis, Primary Diagnoses: Osteoarthritis left knee Based upon the evaluation today and after discussions with Moira Suh, Moira Suh has significant, worsening pain at the knee. This pain is increased with activity and weight bearing, and interferes with activities of daily living. These symptoms have continued despite a number of non-surgical measures, including a trial of oral pain medication and attempted physical therapy/ structured exercise program and/or use of an assistive device/ bracing (for at least 12 weeks unless the patient was unable to tolerate these measures as discussed above). At this point, the patient will not benefit from further PT due to the severity of their condition. The patient's physical examination is consistent with limitations in range of motion, pain with passive range of motion, crepitus, and effusion/ synovitis. These examination findings are corroborated by imaging findings of joint space narrowing, periarticular osteophyte formation, and subchondral sclerosis. The patient has been treated by the practice and all reasonable treatments have failed to control the disease, which causes significant pain and limits activities of daily living. The patient has failed conservative treatment and joint replacement surgery was discussed and agreed upon by both provider and patient. We will proceed with surgical management to improve function and relieve pain refractory to non-surgical measures. Left Primary Total Knee Arthroplasty as evidenced by progressive symptoms. Progressive Symptoms Include: Pain impacting sleep or causing fatigue Pain worsened by weight bearing Pain effecting living situation Pain limiting ability to stay fit and healthy. Surgery Details Date and Location: At [facility] on date to be determined. Implants: Mansura Robotic: Yes Predicted LOS: 2 days (Inpatient candidate) Informed consent obtained in the office today. The risks and benefits of surgery were discussed at length including but not limited to the risks of infection, bleeding, nerve or blood vessel injury, deep venous thrombosis, pulmonary embolism, arthrofibrosis, reflex sympathetic dystrophy, , paralysis, knee or patellar dislocation, extensor mechanism injury, bone fracture, component loosening or failure requiring re-operation or amputation. Informed consent was obtained and the patient was scheduled for surgery. We also discussed fixation strategies including cement and cementless fixation and advantages and disadvantages of each. We discussed the details of the surgery as well as rehabilitation. All questions were answered, and the patient wishes to proceed with surgery.. The patient has been ordered: CT scan for preoperative planning and anemia screen will be ordered CONSULTS: IMPACT/PACE Consult for preoperative clearance. Total Joint Arthroplasty: Risk Calculator Moira Suh has a 24.86% chance of NOT returning home at discharge for a Primary total Knee replacement. Moira's estimated Length of Stay is 2 days (Inpatient candidate). Moira's 30 day chance of readmission is 3.96%. Readmission Probability 3.96 % (within 30 days following surgery) Estimated LOS 2 days Discharge Disposition Probability D/C to Home 75.14 % D/C to SNF 24.86 % These calculations are based on the following factors: - 74 years of age - sex is not male - BMI of 37.28 kg/m2 - NarxCare score of 60 - 0 hospitalizations in the last 12 months - history of heart disease - no history of diabetes - no history of COPD - history of anemia - preoperative ambulation: impaired community distances - 2 step(s) to enter home - bed location is on the first floor - bath location is on the first floor - caregiver is consistent - home is not more than 150 miles away - PROMIS-10 Mental Health T score 50+ - Marital status: Risk Factors for Total Knee Arthroplasty (TKA) Major Risk Factors Obesity Moderate Risk High: BMI > 40 Moderate: BMI 30-40 Normal: BMI < 30 Diabetes normal High: A1C > 8 Moderate: A1C 7-8 Normal: A1C < 7 Hx of DVT / PE normal High: dx of DVT / PE Normal: no dx of DVT / PE Smoking normal High: Current smoker Normal: Non smoker Narcotics Use normal High:NarxCare >=300 Moderate: 100-299 Normal: 0-99 Depression Unknown Risk High: PHQ-9 >14 Moderate: PHQ-9 5-14 Normal: PHQ-9 < 5 Area Deprivation Index (ABBI) Unknown Risk High: ABBI Score > 75 Moderate: ABBI 50-75 Normal: ABBI < 50 Obesity: weight management recommended BMI Readings from Last 3 Encounters: 06/30/24 : 37.04 kg/m 06/10/24 : 37.49 kg/m 06/06/24 : 37.38 kg/m Area Deprivation Index (ABBI) 10/26/2021 07/10/2022 ABBI Score National Score 57 65 Patient Health Questionnaire (PHQ-9) 09/24/2023 04/01/2024 07/14/2024 PHQ-9 PHQ-2 Score 2 1 2 (0-4) minimal depression, (5-9) mild depression, (10-14) moderate depression, (15-19) moderately severe depression, (20-27) severe depression Bone Density Risk Screen Moira Suh is at risk for bone loss and has not had a bone densitometry scan in the last 2 years (date of last scan: None on file). Recommend a bone densitometry scan and if indicated on the bone density results, a consult to a bone health specialist (Rheumatology, Endocrinology, or Women's Health) for bone assessment. Risk Factors: History of falls Prednisone or use of systemic steroids Chronic Malnutrition Additional Risk Factors Anemia Hemoglobin (g/dL) Date Value 06/30/2024 14.6 07/02/2023 14.6 11/29/2020 14.3 04/12/2017 13.9 Coagulation Latest Ref Rng & Units 01/03/2023 07/02/2023 06/30/2024 Hemoglobin and Platelets Hemoglobin 11.5 - 15.5 g/dL 11.4 14.6 14.6 Platelet Count 150 - 400 k/uL 129 171 149 Past Orthopaedic Surgery: Moira had knee surgery on 01/02/2023 with Nela Ferreira. Malnutrition: No Malnutrition Screening Tool (MST) score on file- please complete the MST screening tool (click here to open) and refresh the note. 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) Dry Skin Hair Loss Bmi 37.0-37.9, Adult Exposure to Mercury Paf (Paroxysmal Atrial Fibrillation) (Hcc) Insulin Resistance Vitamin D Deficiency Former Smoker S/P Total Knee Arthroplasty, Right Primary Osteoarthritis of Left Knee Primary Osteoarthritis of Right Knee Medicare Annual Wellness Visit, Subsequent Actinic Keratosis Myalgia Hyperglycemia Dysuria Aftercare Following Right Knee Joint Replacement Surgery Chronic Pain of Right Knee Chronic Bilateral Low Back Pain SUBJECTIVE CHIEF COMPLAINT: Knee Pain HPI: Moira Suh is a 74 year old patient with the presenting complaint of Pre-Op Visit, Knee Pain, and Established Patient of the Left Knee. Moira Suh has had progressive problems with the knee(s) most of the day over the past 5 year(s) interfering with activities which include walking, rising from a sitting position, standing for prolonged periods of time, getting in and out of a car, and climbing stairs. The problem began limiting activities 3+ years ago. Moira reports no pain this visit (0 on the pain scale). FALL RISK: Moira is not currently at risk for falls. PROMIS Physical Function Score Descriptive Summary for PROMIS Physical Function T-score = 32 (Percentile 4) Unable - Do 2 hours of physical labor Unable - Walk at a normal speed. 04/01/2024 05/05/2024 07/14/2024 PROMIS CAT Physical Function T-Score 33 (moderate dysfunction) 35 (moderate dysfunction) 32 (moderate dysfunction) Percentile 4 7 4 FUNCTIONAL STATUS: Walk indoors, such as around the house (1.75 METs) Take care of self, that is eating, dressing, bathing, using the toilet (2.75 METs) PREVIOUS TREATMENTS: Last knee-related PT visit: 05/27/2024 (Knee - Left) Last Knee Surgery: 01/02/2023 with Nela Ferreira Past anti-inflammatory medications (not necessarily for this reason for visit): dexamethasone sodium phosphate, diclofenac sodium, ketorolac tromethamine Medical Treatments: RX NSAIDS for 3 Months or Greater (diclofenac (Voltaren, [place])), Steroid Injections Left Knee Physical Therapy: Activities Modified REVIEW OF SYSTEMS: PAIN ASSESSMENT: See HPI. MUSCULOSKELETAL: See HPI. 01/02/2023 Malnutrition Screening Tool (MST) Lost Weight Recently Without Trying? If Yes, Amount of Weight Loss(lbs) 0:No Eating Poorly Because of a Decreased Appetite 0:No Weight Loss Score (Calculated) 0 Appetite Score (Calculated) 0 Total MST Score (Calculated) 0 PAST MEDICAL HISTORY Diagnosis Date Atrial fibrillation (HCC) Coronary artery disease Holter monitor, abnormal extra beats Hypercholesteremia Hyperlipidemia Hypertension Insulin resistance 07/19/2017 Leiomyoma of uterus, unspecified Low HDL (under 40) PAST SURGICAL HISTORY Procedure Laterality Date CORONARY ARTERY BYPASS GRAFT HX 2015 3 vessel FNA WITH IMAGING 11/27/2012 U/S FNA bilateral thyroid PAST SURGICAL HISTORY OF age 28 1 ovary removed, 1 tube reconstructed from ectopic PAST SURGICAL HISTORY OF age 20 tendon repairs to wrists after going through glass door PAST SURGICAL HISTORY OF removal of uterine polyp TOTAL KNEE REPLACEMENT Right 01/02/2023 FAMILY HISTORY Problem Relation Age of Onset Thyroid Mother Hypertension Mother Prostate Cancer Father Thyroid Sister Social History Tobacco Use Smoking status: Former Current packs/day: 1.00 Average packs/day: 1 pack/day for 10.0 years (10.0 ttl pk-yrs) Types: Cigarettes Smokeless tobacco: Never Vaping Use Vaping status: Never Used Substance Use Topics Alcohol use: Yes Comment: socially Drug use: No ALLERGIES: Atorvastatin Calcium, Codeine, and Crestor [Rosuvastatin Calcium] MEDICATIONS: mupirocin (BACTROBAN) 2 % ointment Apply 0.5 inch with cotton swab (Q-tip) to each nostril in the morning and evening for 5 days prior to and including day of surgery. OTC PRODUCT Black Seed Oil - Capsules OTC PRODUCT Delmar's Seb metoprolol succinate ER (TOPROL XL) 25 mg 24 hr tablet Take 1 tablet by mouth once daily. njtevsk-kgjm-zcsha-oreg-capryl 100 mg-150 mg- 50 mg-150 mg cap Take 1 tablet by mouth twice daily. OmegaGenics EPA-DHA 2400 (High Concentrate EPA/DHA liquid) (LearnSomething) Take one teaspoon (5 ml) 1 times daily with food MAGNESIUM ORAL Take 135 Units by mouth once daily. Takes 4 capsules daily ascorbic acid, vitamin C, (VITAMIN C) 500 mg tablet Take 2,000 mg by mouth once daily. B-Complex Plus (Pure Encapsulations) - 1qD stress/energy/hormones/detox/weigh t loss Take 1 capsule by mouth once daily. CoQ10, Liposomal Ubiquinol, 200 mg cap Take 1 capsule by mouth daily with food. cholecalciferol (VITAMIN D3) 1,000 unit tab tablet Take 1,000 Units by mouth once daily. OBJECTIVE PHYSICAL EXAM: There were no vitals taken for this visit. All other systems deferred. GENERAL: Obese HABITUS: Obese GAIT: Antalgic to the left KNEE EXAM: Left: Alignment: Varus deformity, Correctable Range of motion is 5 degrees in extension and 100 degrees of flexion. Extension Lag: < 10 degrees Pain with ROM: Yes Effusion: Mild Tender to the palpation of Medial joint line Pain with patellar compression: Yes Stability: Anterior/Posterior stable and Varus/Valgus not stable Hip Exam: flexion to 100+ degrees, full extension, internal/external rotation adequate, and no pain with log roll Neurovascular Status: Sensation Intact, Moves foot and ankle up & down, Moves toes up and down, 2+ dorsalis pedis, and negative homans sign DATA: She was last seen in orthopaedic clinic for her knee/leg on 04/03/2024 with Eren Coyle. Most recent knee imaging was completed on 04/03/2024 (XR KNEE GENERAL 4V AP BOTH/PA BOTH/LAT/MERC LEFT) . Attached is imaging for the order.Most recent upper leg imaging was completed on 04/03/2024 (XR LEG FRONTAL HIP TO ANKLE MECHANICAL AXIS) . Attached is imaging for the order.The last knee-related PT visit was completed on 05/27/2024 (Knee - Left). Moira had knee surgery on 01/02/2023 with Nela Ferreira. Diagnostic tests reviewed for today's visit: Left knee X-Ray: Medial joint space noted to have severe degenerative changes, Patellofemoral joint noted to have severe degenerative changes, and Bone on bone contact of the medial joint space(s) The following conditions were addressed during the office visit today: Obesity - Weight management strategies were discussed including diet and exercise. A Consult to Weight Management will be completed to follow up on the plan of care. SIGNATURE: Nela Ferreira MD PATIENT NAME: Moira Suh DATE: July 14, 2024 TIME: 2:31 PM documented in this encounter [facility] 07-11-2024 History of Present illness Narrative Radiology Service Progress Note DATE OF SERVICE: July 11, 2024 TIME: 1:43 PM PATIENT IDENTITY VERIFICATION COMPLETED USING TWO (2) STANDARD IDENTIFIERS: Name and Date of confirmed by patient verbally. FALL SCREENING: Has the patient had 2 falls in the last year or 1 fall with injury or currently using an Ambulatory Assistive Device (Walker, Cane, Wheelchair, Crutches, etc.)? No PATIENT GENDER DATA: Assigned female at . status: : No status: NO. PATIENT RELEVANT IMPLANT DATA REVIEWED: Yes PATIENT PRESENTS WITH AN IMPLANTABLE OR ATTACHED RN CLINICAL TRIALS: No ALLERGIES: Reviewed and unchanged CONTRAST ALLERGY: NO. EXAM: MRI - CONTRAST TYPE: GROUP II PERIPHERAL IV DATA: Ambulatory: A peripheral IV was started in the Left antecubital site with a Angio cath: 22 gauge. RADIOLOGY DEPARTMENT: MR; Exam(s) Completed: Head: Routine Brain. Lavender Administered: No SIGNATURE: RT Debra(R) PATIENT NAME: Moira Suh DATE: July 11, 2024 TIME: 1:43 PM documented in this encounter [facility] 07-11-2024 Note HNO ID: [id number] Author: ISATU LUGO RT(R) Service: ? Author Type: Technologist Type: Progress Notes Filed: 07/11/2024 13:44 Note Text: Radiology Service Progress Note DATE OF SERVICE: July 11, 2024 TIME: 1:43 PM PATIENT IDENTITY VERIFICATION COMPLETED USING TWO (2) STANDARD IDENTIFIERS: Name and Date of confirmed by patient verbally. FALL SCREENING: Has the patient had 2 falls in the last year or 1 fall with injury or currently using an Ambulatory Assistive Device (Walker, Cane, Wheelchair, Crutches, etc.)? No PATIENT GENDER DATA: Assigned female at . status: : No status: NO. PATIENT RELEVANT IMPLANT DATA REVIEWED: Yes PATIENT PRESENTS WITH AN IMPLANTABLE OR ATTACHED RN CLINICAL TRIALS: No ALLERGIES: Reviewed and unchanged CONTRAST ALLERGY: NO. EXAM: MRI - CONTRAST TYPE: GROUP II PERIPHERAL IV DATA: Ambulatory: A peripheral IV was started in the Left antecubital site with a Angio cath: 22 gauge. RADIOLOGY DEPARTMENT: MR; Exam(s) Completed: Head: Routine Brain. Lavender Administered: No SIGNATURE: Isatu Lugo, RT(R) PATIENT NAME: Moira Suh DATE: July 11, 2024 TIME: 1:43 PM [facility] 06-10-2024 Note HNO ID: [id number] Author: DARLINE FERRER DO Service: ? Author Type: Physician Type: Progress Notes Filed: 06/17/2024 14:14 Note Text: Osteopathic Neuromusculoskeletal Medicine Outpatient Progress Note Name: Moira Suh Date of : 1950 Date of Exam: June 10, 2024 Silvestre Chacne DO is the PCP for this patient. I am seeing this patient for neuromusculoskeletal evaluation and if indicated, osteopathic manipulative treatment, and am returning the patient to Silvestre Chance DO for primary care. CC: This is Moira Suh, a 74 year old female who presents with left knee pain and left lower back pain History of Present Illness: Last OV: 04/11/2024 Response to previous treatment: Helps Looking forward to her left knee being replaced soon. Has done her pre PT for it. Standing/walking for long periods has discomfort in her back. Last week spent two hours standing on concrete, has some pain going down the left leg. Pain going down the left side has been going on since her left knee is getting worse. Past Medical History: PAST MEDICAL HISTORY Diagnosis Date Atrial fibrillation (HCC) Coronary artery disease Holter monitor, abnormal extra beats Hypercholesteremia Hyperlipidemia Hypertension Insulin resistance 07/19/2017 Leiomyoma of uterus, unspecified Low HDL (under 40) Past Surgical History: PAST SURGICAL HISTORY Procedure Laterality Date CORONARY ARTERY BYPASS GRAFT HX 2016 3 vessel FNA WITH IMAGING 11/27/2012 U/S FNA bilateral thyroid PAST SURGICAL HISTORY OF age 28 1 ovary removed, 1 tube reconstructed from ectopic PAST SURGICAL HISTORY OF age 20 tendon repairs to wrists after going through glass door PAST SURGICAL HISTORY OF removal of uterine polyp TOTAL KNEE REPLACEMENT Right 01/02/2023 Family History: FAMILY HISTORY Problem Relation Age of Onset Thyroid Mother Hypertension Mother Prostate Cancer Father Thyroid Sister Social History: Moira Suh reports that she has quit smoking. Her smoking use included cigarettes. She has a 10 pack-year smoking history. She has never used smokeless tobacco. She reports current alcohol use. She reports that she does not use drugs. Employer And Job Title: None on file Years Of Education Completed: Not specified Marital Status: Medications/Supplements: Reviewed ` Allergies: Reviewed Review of Systems: Review of Systems sheet reviewed and discussed with patient. Physical Exam: VITALS: BP 185/101[Patient states she sees a hat band attacher[ Pulse 76 Temp (Src) 97.7 (Temporal) Wt 225 lb 5 oz (102.2kg) Body mass index is 37.49 kg/m?. Constitutional: awake and alert, in no acute distress HEENT: normocephalic, atraumatic Neck: supple, normal range of motion, no midline or muscular tenderness Cardio: no peripheral edema Pulmonary: normal effort, in no acute respiratory distress Abdomen: soft, nondistended Neurologic: at neurologic baseline Psychiatric: normal mood and affect, cooperative, normal speech MSK: Bilateral knee varus, left foot tenderness to plantar surface, reduced extension of lumbar spine. Assessment and Plan: Encounter Diagnosis ICD-10-CM 1. Chronic pain of left knee M25.562 G89.29 2. Chronic left-sided low back pain without sciatica M54.50 Osteopathic manipulative treatment (OMT) G89.29 3. Somatic dysfunction of head region M99.00 Osteopathic manipulative treatment (OMT) 4. Somatic dysfunction of spine, lumbar M99.03 Osteopathic manipulative treatment (OMT) 5. Somatic dysfunction of pelvis region M99.05 Osteopathic manipulative treatment (OMT) 6. Somatic dysfunction of lower extremity M99.06 Osteopathic manipulative treatment (OMT) 7. Somatic dysfunction of sacral spine M99.04 Osteopathic manipulative treatment (OMT) 8. Somatic dysfunction of abdominal region M99.09 Osteopathic manipulative treatment (OMT) 9. Somatic dysfunction of rib M99.08 Osteopathic manipulative treatment (OMT) 10. Cervical (neck) region somatic dysfunction M99.01 Moira Suh, a 74 year old female chronic right knee pain s/p knee replacement Dec 2022 who presents for follow-up on chronic left knee pain and lower back pain. She is having her left knee replaced next month. She does have lower back pain as well, we discussed today to see how her lower back is doing after she recovers from her knee surgery as having better gait mechanics could help reduce her lower back pain along when. She is not interested in intervention such as surgery or injections to her lower back. Discussed that unless she has new symptoms down the road in her back we could consider deferring imaging if she is not interested in interventions. -Will want to follow-up after she has surgery on her left knee. Left surgery she had significant swelling over the right leg. States she has a plan with her surgeon to help reduce this complica (more content not included)... [facility] 06-10-2024 History of Present illness Narrative Associated Order(s): Osteopathic manipulative treatment (OMT) Post-Procedure Diagnose(s): Chronic left-sided low back pain without sciatica; Somatic dysfunction of head region; Somatic dysfunction of spine, lumbar; Somatic dysfunction of pelvis region; Somatic dysfunction of lower extremity; Somatic dysfunction of sacral spine; Somatic dysfunction of abdominal region; Somatic dysfunction of rib Images from the original note were not included. Osteopathic Neuromusculoskeletal Medicine Outpatient Progress Note Name: Moira Suh Date of : 1950 Date of Exam: June 10, 2024 Silvestre Chance DO is the PCP for this patient. I am seeing this patient for neuromusculoskeletal evaluation and if indicated, osteopathic manipulative treatment, and am returning the patient to Silvestre Chance DO for primary care. CC: This is Moira Suh, a 74 year old female who presents with left knee pain and left lower back pain History of Present Illness: Last OV: 04/11/2024 Response to previous treatment: Helps Looking forward to her left knee being replaced soon. Has done her pre PT for it. Standing/walking for long periods has discomfort in her back. Last week spent two hours standing on concrete, has some pain going down the left leg. Pain going down the left side has been going on since her left knee is getting worse. Past Medical History: PAST MEDICAL HISTORY Diagnosis Date Atrial fibrillation (HCC) Coronary artery disease Holter monitor, abnormal extra beats Hypercholesteremia Hyperlipidemia Hypertension Insulin resistance 07/19/2017 Leiomyoma of uterus, unspecified Low HDL (under 40) Past Surgical History: PAST SURGICAL HISTORY Procedure Laterality Date CORONARY ARTERY BYPASS GRAFT HX 2016 3 vessel FNA WITH IMAGING 11/27/2012 U/S FNA bilateral thyroid PAST SURGICAL HISTORY OF age 28 1 ovary removed, 1 tube reconstructed from ectopic PAST SURGICAL HISTORY OF age 20 tendon repairs to wrists after going through glass door PAST SURGICAL HISTORY OF removal of uterine polyp TOTAL KNEE REPLACEMENT Right 01/02/2023 Family History: FAMILY HISTORY Problem Relation Age of Onset Thyroid Mother Hypertension Mother Prostate Cancer Father Thyroid Sister Social History: Moira Suh reports that she has quit smoking. Her smoking use included cigarettes. She has a 10 pack-year smoking history. She has never used smokeless tobacco. She reports current alcohol use. She reports that she does not use drugs. Employer And Job Title: None on file Years Of Education Completed: Not specified Marital Status: Medications/Supplements: Reviewed ` Allergies: Reviewed Review of Systems: Review of Systems sheet reviewed and discussed with patient. Physical Exam: VITALS: BP 185/101[Patient states she sees a hat band attacher[ Pulse 76 Temp (Src) 97.7 (Temporal) Wt 225 lb 5 oz (102.2kg) Body mass index is 37.49 kg/m . Constitutional: awake and alert, in no acute distress HEENT: normocephalic, atraumatic Neck: supple, normal range of motion, no midline or muscular tenderness Cardio: no peripheral edema Pulmonary: normal effort, in no acute respiratory distress Abdomen: soft, nondistended Neurologic: at neurologic baseline Psychiatric: normal mood and affect, cooperative, normal speech MSK: Bilateral knee varus, left foot tenderness to plantar surface, reduced extension of lumbar spine. Assessment and Plan: Encounter Diagnosis ICD-10-CM 1. Chronic pain of left knee M25.562 G89.29 2. Chronic left-sided low back pain without sciatica M54.50 Osteopathic manipulative treatment (OMT) G89.29 3. Somatic dysfunction of head region M99.00 Osteopathic manipulative treatment (OMT) 4. Somatic dysfunction of spine, lumbar M99.03 Osteopathic manipulative treatment (OMT) 5. Somatic dysfunction of pelvis region M99.05 Osteopathic manipulative treatment (OMT) 6. Somatic dysfunction of lower extremity M99.06 Osteopathic manipulative treatment (OMT) 7. Somatic dysfunction of sacral spine M99.04 Osteopathic manipulative treatment (OMT) 8. Somatic dysfunction of abdominal region M99.09 Osteopathic manipulative treatment (OMT) 9. Somatic dysfunction of rib M99.08 Osteopathic manipulative treatment (OMT) 10. Cervical (neck) region somatic dysfunction M99.01 Moira Suh, a 74 year old female chronic right knee pain s/p knee replacement Dec 2022 who presents for follow-up on chronic left knee pain and lower back pain. She is having her left knee replaced next month. She does have lower back pain as well, we discussed today to see how her lower back is doing after she recovers from her knee surgery as having better gait mechanics could help reduce her lower back pain along when. She is not interested in intervention such as surgery or injections to her lower back. Discussed that unless she has new symptoms down the road in her back we could consider deferring imaging if she is not interested in interventions. -Will want to follow-up after she has surgery on her left knee. Left surgery she had significant swelling over the right leg. States she has a plan with her surgeon to help reduce this complications likelihood. Has done well over this pain pretty physical therapy and enjoys her current physical therapist. Will continue with physical therapy after surgery. OMT was performed today to improve function and reduce symptoms with good effect. Significant somatic dysfunction in the left lower leg which was not treated today as she is having left knee replacement soon. Focused on leveling the innominate and reducing the muscular tension through the quads and hamstrings on the left side. Also treated the sympathetic's and ensured good motion at the OA and jaw for possible intubation depending on the level of sedation she will undergo. Based on the history and physical exam findings, Osteopathic manipulative treatment was indicated, verbal consent was obtained and the following procedures were performed: Procedure: Osteopathic Manipulative Treatment Osteopathic manipulative treatment (OMT) Time/Date:06/10/2024 2:33 PM Informed Consent Consent Obtained: Verbal Midway Protocol A moment to CARE was completed. SIGN IN Special Equipment: N/A Patient/Surrogate Stated/Verified: Patient name and Date of TIME OUT Consent Obtained:Verbal Body Regions: Head, Sacrum, Pelvis, Abdomen, Ribs, Lumbar, Lower Extremities and Cervical Head Technique: OA extended treated with Balanced ligamentous tension and cranial Cervical Technique: Anterior cervical fascia restricted treated with Facilitated positional release and Myofascial release Ribs Technique: Right ribs 8-10 exhaled treated with Myofascial release Lumbar Technique: L2 ERSR treated with muscle energy Sacrum Technique: Right sacral base posterior treated with Facilitated positional release Pelvis Technique: Left posterior inomminate treated with paz percussion Abdomen Technique: Abdominal diaphragm flattened treated with Myofascial release Lower Extremities Technique:Left hamstring and quadriceps restrictions treated with paz percussion Number of Body Regions: 7- 8 Disposition: Osteopathic manipulation tolerated well, reports subjective and objective improvement, improvement in range of motion and mechanics, instructed to increase hydration for the next 24 hours and instructed to follow up if symptoms worsen or fail to improve Return in about 8 weeks (around 08/05/2024). Start time: 1:55pm; end time: 2:45pm Time Spent (min): 40 >50% of time spent on the date of service was dedicated to preparing to see the patient, [id number] patient care, completing clinical documentation, obtaining and/or reviewing separately obtained history, performing a medically appropriate examination, and counseling and educating the patient/family/caregiver. Patient seen and evaluated with Dr Ferrer; please see attestation. Rotating resident Miryam Hernandez DO PGY 1 present during evaluation and participated in treatment. Dylan Liang DO PGY-IV, ONMM 1:57 PM 06/10/2024 This note was partially generated using voice recognition software. It has been reviewed for typographical errors, however some may remain. Any questions regarding meaning or word use should be directed to the author. On the date above, I interviewed and examined the patient. I was present for the jones component of the exam and treatment and I fully participated in Moira Canyon's care. I discussed the management with the resident, Dr. Dylan Liang DO. I reviewed the note above and I agree with and confirm those findings as well as the plan of care. I reviewed the labs and the recent notes in EPIC. I have edited the note based on my personal assessment of the patient. My edits are represented by deletions and italic additions. I agree with the work-up as detailed in the resident's note above. Darline Ferrer D.O., Rachel-ONRUDDY, C- Associate Pump Room Operator, Osteopathic Neuromusculoskeletal Medicine Residency [facility] documented in this encounter [facility] 06-06-2024 Instructions Amber Nash APRN.SUMEET - 06/06/2024 11:35 AM EDT Cardiometabolic food plan No change in medications The Hormone Reset by DR Beti Johansen Follow up 1 year Amber Nash APRN.SUMEET documented in this encounter [facility] 06-06-2024 Note HNO ID: [id number] Author: AMBER NASH APRN.CNP Service: ? Author Type: Nurse Practitioner Type: Progress Notes Filed: 06/06/2024 14:00 Note Text: [facility] [place] [facility] Department of Cardiovascular Medicine SECTION OF CLINICAL CARDIOLOGY OUTPATIENT VISIT DATE June 06, 2024 OUTPATIENT VISIT TYPE ESTABLISHED PRIMARY CARE PHYSICIAN: Silvestre Chance [address] [place] [address] REFERRING PHYSICIAN: No referring provider defined for this encounter. CHIEF COMPLAINT: Cardiology Follow Up (LKR scheduled 07/21/2024 @ [facility] [place] ) HISTORY OF PRESENT ILLNESS: Ms. Suh is a 74 year old female with PMh of CAD/CABG x 3 ( LLANOS-LAD, SVG-LCX, SVG-RCA), hyperlipidemia, elevated LP(a), vitamin D deficiency, who presents today for a cardiovascular medicine follow-up visit as she has not been seen for a year and a half in this clinic.. She is due to have knee surgery next month. She wanted to just make sure that she had a cardiology appointment before that. Her last knee surgery on her right knee was a year and a half ago. That did not heal well. This time is going to be on her left knee. She has no ischemic symptoms, no symptoms or signs of fluid overload. Has not had any issues since her bypass surgery 2016. She denies shortness of breath, chest pain, palpitations, dizziness, lightheadedness, lower extremity edema, PND, orthopnea, presyncope, syncope, or claudication symptoms Subjective PAST MEDICAL HISTORY Diagnosis Date Atrial fibrillation (HCC) Coronary artery disease Holter monitor, abnormal extra beats Hypercholesteremia Hyperlipidemia Hypertension Insulin resistance 07/19/2017 Leiomyoma of uterus, unspecified Low HDL (under 40) PAST SURGICAL HISTORY Procedure Laterality Date CORONARY ARTERY BYPASS GRAFT HX 2016 3 vessel FNA WITH IMAGING 11/27/2012 U/S FNA bilateral thyroid PAST SURGICAL HISTORY OF age 28 1 ovary removed, 1 tube reconstructed from ectopic PAST SURGICAL HISTORY OF age 20 tendon repairs to wrists after going through glass door PAST SURGICAL HISTORY OF removal of uterine polyp TOTAL KNEE REPLACEMENT Right 01/02/2023 Social History Tobacco Use Smoking status: Former Current packs/day: 1.00 Average packs/day: 1 pack/day for 10.0 years (10.0 ttl pk-yrs) Types: Cigarettes Smokeless tobacco: Never Vaping Use Vaping status: Never Used Substance Use Topics Alcohol use: Yes Comment: socially Drug use: No FAMILY HISTORY Problem Relation Age of Onset Thyroid Mother Hypertension Mother Prostate Cancer Father Thyroid Sister ALLERGIES: ALLERGIES Allergen Reactions Atorvastatin Calcium Myalgia Caused severe myalgias to bilateral thighs and across back Codeine Mental Status Change Can hear whats going on around her but she can't wake up Crestor [Rosuvastat* Myalgia 20 mg caused severe myalgias to upper thighs and across back MEDICATIONS: OTC PRODUCT Black Seed Oil - Capsules OTC PRODUCT Lion's Seb MEDICATION, NON-DATABASE Medical Marijuana Cream metoprolol succinate ER (TOPROL XL) 25 mg 24 hr tablet Take 1 tablet by mouth once daily. uopucuv-aoxr-ihahv-oreg-capryl 100 mg-150 mg- 50 mg-150 mg cap Take 1 tablet by mouth twice daily. Omega[employer]ics EPA-DHA 2400 (High Concentrate EPA/DHA liquid) (LearnSomething) Take one teaspoon (5 ml) 1 times daily with food MAGNESIUM ORAL Take 135 Units by mouth once daily. Takes 4 capsules daily ascorbic acid, vitamin C, (VITAMIN C) 500 mg tablet Take 2,000 mg by mouth once daily. B-Complex Plus (Pure Encapsulations) - 1qD stress/energy/hormones/detox/weigh t loss Take 1 capsule by mouth once daily. CoQ10, Liposomal Ubiquinol, 200 mg cap Take 1 capsule by mouth daily with food. cholecalciferol (VITAMIN D3) 1,000 unit tab tablet Take 1,000 Units by mouth once daily. REVIEW OF SYSTEMS: CARD: See HPI GENERAL: Negative for: Weight loss or gain, Fever and/or Chills HEENT: Negative for: Headache, Impaired Vision, Glasses, Hearing Impairment, Ringing in Ears, Nosebleeds, Bleeding Gums NECK: Negative for: Swelling, Pain, Stiffness RESPIRATORY: Negative for: Cough, Blood in Sputum, Shortness of breath, Wheezing, Apnea GASTROINTESTINAL: Negative for: Nausea, Vomiting, Diarrhea, Blood in stool, or Dark black stools MUSCULOSKELETAL: Negative for: Muscle or joint pain, Stiffness , Joint swelling NEUROLOGIC: Negative for: focal numbness/weakness, headaches, visual changes, ataxia, speech/language loss HEMATOLOGICAL/LYMPHATIC: Negative for: Easy bruising , Easy bleeding Objective PHYSICAL EXAMINATION: BP 132/76 Pulse 70 Ht 165.1 cm (5' 5) Wt 101.9 kg (224 lb 10.4 oz) SpO2 98% BMI 37.38 kg/m? General: Well appearing, in no acute distress. Skin: No clubbing, no cyanosis. Eyes: Extra ocular movements intact Oropharynx: Teeth in good repair. Neck: (more content not included)... [facility] 06-06-2024 History of Present illness Narrative Images from the original note were not included. [facility] [place] [facility] Department of Cardiovascular Medicine SECTION OF CLINICAL CARDIOLOGY OUTPATIENT VISIT DATE June 06, 2024 OUTPATIENT VISIT TYPE ESTABLISHED PRIMARY CARE PHYSICIAN: Silvestre Chance [address] [place] [address] REFERRING PHYSICIAN: No referring provider defined for this encounter. CHIEF COMPLAINT: Cardiology Follow Up (LKR scheduled 07/21/2024 @ [facility] [place] ) HISTORY OF PRESENT ILLNESS: Ms. Suh is a 74 year old female with PMh of CAD/CABG x 3 ( LLANOS-LAD, SVG-LCX, SVG-RCA), hyperlipidemia, elevated LP(a), vitamin D deficiency, who presents today for a cardiovascular medicine follow-up visit as she has not been seen for a year and a half in this clinic.. She is due to have knee surgery next month. She wanted to just make sure that she had a cardiology appointment before that. Her last knee surgery on her right knee was a year and a half ago. That did not heal well. This time is going to be on her left knee. She has no ischemic symptoms, no symptoms or signs of fluid overload. Has not had any issues since her bypass surgery 2015. She denies shortness of breath, chest pain, palpitations, dizziness, lightheadedness, lower extremity edema, PND, orthopnea, presyncope, syncope, or claudication symptoms Subjective PAST MEDICAL HISTORY Diagnosis Date Atrial fibrillation (HCC) Coronary artery disease Holter monitor, abnormal extra beats Hypercholesteremia Hyperlipidemia Hypertension Insulin resistance 07/19/2017 Leiomyoma of uterus, unspecified Low HDL (under 40) PAST SURGICAL HISTORY Procedure Laterality Date CORONARY ARTERY BYPASS GRAFT HX 2016 3 vessel FNA WITH IMAGING 11/27/2012 U/S FNA bilateral thyroid PAST SURGICAL HISTORY OF age 28 1 ovary removed, 1 tube reconstructed from ectopic PAST SURGICAL HISTORY OF age 20 tendon repairs to wrists after going through glass door PAST SURGICAL HISTORY OF removal of uterine polyp TOTAL KNEE REPLACEMENT Right 01/02/2023 Social History Tobacco Use Smoking status: Former Current packs/day: 1.00 Average packs/day: 1 pack/day for 10.0 years (10.0 ttl pk-yrs) Types: Cigarettes Smokeless tobacco: Never Vaping Use Vaping status: Never Used Substance Use Topics Alcohol use: Yes Comment: socially Drug use: No FAMILY HISTORY Problem Relation Age of Onset Thyroid Mother Hypertension Mother Prostate Cancer Father Thyroid Sister ALLERGIES: ALLERGIES Allergen Reactions Atorvastatin Calcium Myalgia Caused severe myalgias to bilateral thighs and across back Codeine Mental Status Change Can hear whats going on around her but she can't wake up Crestor [Rosuvastat* Myalgia 20 mg caused severe myalgias to upper thighs and across back MEDICATIONS: OTC PRODUCT Black Seed Oil - Capsules OTC PRODUCT Lishikha's Seb MEDICATION, NON-DATABASE Medical Marijuana Cream metoprolol succinate ER (TOPROL XL) 25 mg 24 hr tablet Take 1 tablet by mouth once daily. rlnbpwx-fnlz-fiqsc-oreg-capryl 100 mg-150 mg- 50 mg-150 mg cap Take 1 tablet by mouth twice daily. OmegaGenics EPA-DHA 2400 (High Concentrate EPA/DHA liquid) (LearnSomething) Take one teaspoon (5 ml) 1 times daily with food MAGNESIUM ORAL Take 135 Units by mouth once daily. Takes 4 capsules daily ascorbic acid, vitamin C, (VITAMIN C) 500 mg tablet Take 2,000 mg by mouth once daily. B-Complex Plus (Pure Encapsulations) - 1qD stress/energy/hormones/detox/weigh t loss Take 1 capsule by mouth once daily. CoQ10, Liposomal Ubiquinol, 200 mg cap Take 1 capsule by mouth daily with food. cholecalciferol (VITAMIN D3) 1,000 unit tab tablet Take 1,000 Units by mouth once daily. REVIEW OF SYSTEMS: CARD: See HPI GENERAL: Negative for: Weight loss or gain, Fever and/or Chills HEENT: Negative for: Headache, Impaired Vision, Glasses, Hearing Impairment, Ringing in Ears, Nosebleeds, Bleeding Gums NECK: Negative for: Swelling, Pain, Stiffness RESPIRATORY: Negative for: Cough, Blood in Sputum, Shortness of breath, Wheezing, Apnea GASTROINTESTINAL: Negative for: Nausea, Vomiting, Diarrhea, Blood in stool, or Dark black stools MUSCULOSKELETAL: Negative for: Muscle or joint pain, Stiffness , Joint swelling NEUROLOGIC: Negative for: focal numbness/weakness, headaches, visual changes, ataxia, speech/language loss HEMATOLOGICAL/LYMPHATIC: Negative for: Easy bruising , Easy bleeding Objective PHYSICAL EXAMINATION: BP 132/76 Pulse 70 Ht 165.1 cm (5' 5) Wt 101.9 kg (224 lb 10.4 oz) SpO2 98% BMI 37.38 kg/m General: Well appearing, in no acute distress. Skin: No clubbing, no cyanosis. Eyes: Extra ocular movements intact Oropharynx: Teeth in good repair. Neck: No jugular venous distention, no carotid bruits, carotids have a normal upstroke. Lungs: Clear to auscultation bilaterally, no wheezing or rhonchi. Heart: Regular rhythm, S1, S2 normal, no murmur. No peripheral edema . Grade 2/4 distal pulses bilaterally. Neuro: Oriented to person, place and time, alert, cooperative, gait coordinated. CARDIOVASCULAR MEDICINE TESTING: Electrocardiogram: Normal sinus rhythm, no change since previous EKG I have personally reviewed the Electrocardiogram. I personally interviewed, confirmed and edited the above information if obtained by others. Conclusion: (Z95.1) S/P CABG x 3 (L-LAD, S-CX, S-RCA) 07/2015 (primary encounter diagnosis) Comment: has had no issues cardiac white since then. Plan: most recent echo 2022 was normal. And normal stress test 2022. (E78.5) Hyperlipidemia, unspecified hyperlipidemia type Comment: known elevated lp a. Plan: continue same meds She is optimized from a cardiac standpoint. She would be at low to moderate risk primarily for her age for her knee surgery. PLAN AND RECOMMENDATIONS: Follow up next month so we can discuss more lifestyle strategies. Continue same medications. CONTACT INFORMATION: Amber Nash APRN.SUMEET Cardiology Nurse Practitioner Section of Regional Cardiology [place] Dept of Cardiovascular Medicine [facility] [place] [address] [place] [address] Office Office This note was partially generated using [employer] voice recognition system and may contain errors related to that system including grammar, punctuation, spelling, and words that may be inappropriate documented in this encounter [facility] 05-27-2024 History of Present illness Narrative Program_ID:[id number] Access Code: [email or web address] URL: [email or web address] Date: 05-27-2024 Prepared By: Rikki Tomas Program Notes Exercises - Seated 3 Way Exercise Ball Roll Out Stretch - 1 x daily - 7 x weekly - 3 sets - 10 reps - Staggered Ryi-td-Dvceh - 1 x daily - 7 x weekly - 3 sets - 10 reps - Standing Terminal Knee Extension with Resistance - 1 x daily - 7 x weekly - 3 sets - 10 reps - Supine Active Straight Leg Raise - 1 x daily - 7 x weekly - 3 sets - 10 reps - Sidelying Hip Abduction - 1 x daily - 7 x weekly - 3 sets - 10 reps - Quadricep Stretch with Chair and Counter Support - 1 x daily - 7 x weekly - 3 sets - 1 reps - Clamshell with Resistance - 1 x daily - 7 x weekly - 3 sets - 10 reps - Supine 90/90 Alternating Toe Touch - 1 x daily - 7 x weekly - 3 sets - 10 reps Images from the original note were not included. Episode Visit Count: 3 Therapist That Will Accept/Oversee The Plan Of Care: Анна Perez Start of Care Date: 10/09/23 Onset Date: 01/02/23 Plan of Care Certification Date: 04/23/24 Next Certification Due Date: 06/18/24 Patient Identified by Name and Date of : Yes REHABILITATION AND SPORTS THERAPY PHYSICAL THERAPY DISCONTINUANCE OF CARE PLAN OF CARE UPDATE: Assessment: Moira Suh is discontinued from Physical Therapy services due to partial goal achievement. and maximal benefit. Patient has made good progress with PT, though continues to have residual quad and glute weakness which makes stair negotiation challenging at times. She feels comfortable continuing with HEP independently. Patient was seen for 9 visits from Start of Care Date: 10/09/23 to 05/27/2024 and treatment included: Therapeutic exercise. Discussed importance of HEP compliance to maintain current progress. Educated patient on steps to return to PT should her symptoms worsen. Goals for Episode of Care: created on 10/09/23 (Updated 05/27/2024) [place] in home exercise program.-- MET Patient will decrease pain rating by 2 points to meet minimal clinical important difference for numeric pain rating scale.-- MET Patient will increase active ROM of R knee to 0-120 to allow pt to to improve gait mechanics / gait pattern .-- partially met, improved flexion worse extension L Patient will demonstrate increase in BLE strength to 5/5 during manual muscle testing in order to improve function for prior functional tasks.-- partially met, improved Patient will Improve Timed Up and Go to <9.5 seconds to demonstrate decreased risk of falling.-- MET Patient will improve 30 second sit to stand to 15 reps without UE support to demonstrate improvement in functional lower extremity strength.-- partially met, 14 reps (11 at eval) Improved ability to walk and navigate stairs without pain and with increased confidence.-- partially met Patient will perform all trunk mobility with minimal limitation or better and decreased pain to improve overall mechanics.-- MET Patient will perform cooking, cleaning, standing >20 minutes with decreased LBP. -- MET Patient Goals: Improve strength and mobility, be able to go up stairs easier SUBJECTIVE: Patient feels things have been improving. Back and leg pain has decreased. Continues to have difficulty with stairs when she is tired. Feels comfortable continuing HEP independently. Functional Limitations: stair negotiation (standing prolonged periods) Pain: Pain Pain Level: 2 Pain Location: Knee - Left Post Treatment Pain Post Treatment Pain Level: No Change PROMIS Scales 05/05/2024 04/01/2024 01/27/2024 Higher is Better Phys Func - T Score 35 (moderate dysfunction) 33 (moderate dysfunction) 34 (moderate dysfunction) Phys Func - Percentile 7 4 5 Self-Eff Symptom - T Score 46 (Average) 42 (Average) Self-Eff Symptom - Percentile 34 21 T-scores: mean of general population = 50. 5 points is clinically meaningfully difference Percentiles provide an indication of how the patient's score ranks in relation to the general population. Higher percentile rankings indicate better function/quality of life. 50th percentile is the average of the general population and indicates half of respondents had a worse score. OBJECTIVE MEASURES WITH LEVEL OF FUNCTION: Lumbar Spine AROM Lumbar Flexion: Normal Lumbar Extension: Minimal limitation Lumbar R Side-Bend: Minimal limitation Lumbar L Side-Bend: Minimal limitation Lumbar R Rotation: Normal Lumbar L Rotation: Normal LE AROM R LE AROM: Hip IR/ER ~35 degrees L LE AROM: Hip IR/ER ~35 degrees R Knee Extension: -5 Degrees R Knee Flexion: 115 Degrees L Knee Extension: -13 Degrees L Knee Flexion: 120 Degrees LE Strength R Hip ABduction: 4+/5 L Hip ABduction: 4+/5 Functional Performance Test Results 30 Second Chair Stand Test: 14 reps Timed Up and Go (sec): 8.1 sec TREATMENT: Therapeutic Exercise: 1: Re-assesment per above 2: HEP review and revision 3: Discussion on ongoing goals, and importance of continued HEP compliance to continue progressing independently 4: Discussion on age related muscle changes. 5: *Supine PPT + 90/90 marching x10 bilat 6: Discussion on steps to return to PT should she be unsatisfied with her progress independently. Skilled Intervention: Patient was educated in proper exercise technique and purpose for exercises. Reviewed and educated patient on additions/changes for home exercise program as above (*). Skilled judgment was used in selection of appropriate interventions. Provided written instruction for home exercise program to facilitate proper performance and compliance. Correct performance of therapeutic exercises was facilitated with verbal and visual cuing. Patient education as noted. Billing Therapeutic Exercise Treatment Minutes: 30 Skilled Treatment Time Minutes (timed and untimed codes): 30 Total Session Time (minutes): 30 Session Start Time : 1603 Session Stop Time : 1633 Анна Perez PT DPT documented in this encounter [facility] 05-27-2024 Note HNO ID: [id number] Author: АННА PEREZ PT DPCurly Service: ? Author Type: Physical Therapist Type: Progress Notes Filed: 05/27/2024 19:01 Note Text: Episode Visit Count: 3 Therapist That Will Accept/Oversee The Plan Of Care: Анна Perez Start of Care Date: 10/09/23 Onset Date: 01/02/23 Plan of Care Certification Date: 04/23/24 Next Certification Due Date: 06/18/24 Patient Identified by Name and Date of : Yes REHABILITATION AND SPORTS THERAPY PHYSICAL THERAPY DISCONTINUANCE OF CARE PLAN OF CARE UPDATE: Assessment: Moira Suh is discontinued from Physical Therapy services due to partial goal achievement. and maximal benefit. Patient has made good progress with PT, though continues to have residual quad and glute weakness which makes stair negotiation challenging at times. She feels comfortable continuing with HEP independently. Patient was seen for 9 visits from Start of Care Date: 10/09/23 to 05/27/2024 and treatment included: Therapeutic exercise. Discussed importance of HEP compliance to maintain current progress. Educated patient on steps to return to PT should her symptoms worsen. Goals for Episode of Care: created on 10/09/23 (Updated 05/27/2024) [place] in home exercise program.-- MET Patient will decrease pain rating by 2 points to meet minimal clinical important difference for numeric pain rating scale.-- MET Patient will increase active ROM of R knee to 0-120 to allow pt to to improve gait mechanics / gait pattern .-- partially met, improved flexion worse extension L Patient will demonstrate increase in BLE strength to 5/5 during manual muscle testing in order to improve function for prior functional tasks.-- partially met, improved Patient will Improve Timed Up and Go to <9.5 seconds to demonstrate decreased risk of falling.-- MET Patient will improve 30 second sit to stand to 15 reps without UE support to demonstrate improvement in functional lower extremity strength.-- partially met, 14 reps (11 at eval) Improved ability to walk and navigate stairs without pain and with increased confidence.-- partially met Patient will perform all trunk mobility with minimal limitation or better and decreased pain to improve overall mechanics.-- MET Patient will perform cooking, cleaning, standing >20 minutes with decreased LBP. -- MET Patient Goals: Improve strength and mobility, be able to go up stairs easier SUBJECTIVE: Patient feels things have been improving. Back and leg pain has decreased. Continues to have difficulty with stairs when she is tired. Feels comfortable continuing HEP independently. Functional Limitations: stair negotiation (standing prolonged periods) Pain: Pain Pain Level: 2 Pain Location: Knee - Left Post Treatment Pain Post Treatment Pain Level: No Change PROMIS Scales 05/05/2024 04/01/2024 01/27/2024 Higher is Better Phys Func - T Score 35 (moderate dysfunction) 33 (moderate dysfunction) 34 (moderate dysfunction) Phys Func - Percentile 7 4 5 Self-Eff Symptom - T Score 46 (Average) 42 (Average) Self-Eff Symptom - Percentile 34 21 T-scores: mean of general population = 50. 5 points is clinically meaningfully difference Percentiles provide an indication of how the patient's score ranks in relation to the general population. Higher percentile rankings indicate better function/quality of life. 50th percentile is the average of the general population and indicates half of respondents had a worse score. OBJECTIVE MEASURES WITH LEVEL OF FUNCTION: Lumbar Spine AROM Lumbar Flexion: Normal Lumbar Extension: Minimal limitation Lumbar R Side-Bend: Minimal limitation Lumbar L Side-Bend: Minimal limitation Lumbar R Rotation: Normal Lumbar L Rotation: Normal LE AROM R LE AROM: Hip IR/ER ~35 degrees L LE AROM: Hip IR/ER ~35 degrees R Knee Extension: -5 Degrees R Knee Flexion: 115 Degrees L Knee Extension: -13 Degrees L Knee Flexion: 120 Degrees LE Strength R Hip ABduction: 4+/5 L Hip ABduction: 4+/5 Functional Performance Test Results 30 Second Chair Stand Test: 14 reps Timed Up and Go (sec): 8.1 sec TREATMENT: Therapeutic Exercise: 1: Re-assesment per above 2: HEP review and revision 3: Discussion on ongoing goals, and importance of continued HEP compliance to continue progressing independently 4: Discussion on age related muscle changes. 5: *Supine PPT + 90/90 marching x10 bilat 6: Discussion on steps to return to PT should she be unsatisfied with her progress independently. Skilled Intervention: Patient was educated in proper exercise technique and purpose for exercises. Reviewed and educated patient on additions/changes for home exercise program as above (*). Skilled judgment was used in selection of appropriate interventions. Provided written instruction for home exercise program to facilitate proper performance and compliance. Correct performance of therapeutic exerc (more content not included)... [facility] 05-19-2024 Telephone encounter Note Pt called in inquiring if she will need to have any testing prior to her upcoming knee replacement. Pt left stating we can call or [employer] message her. Sent mychart message KYRA: 03/23/2022 with [facility]. OVEN BAKER PLAN AND RECOMMENDATIONS: 1. Palpitations - Described as pounding sensation - Sporadic increase in resting HR from 60 bpm to 80 bpm - Sporadic increase in HR with minimal exertion to low 100's - No associated symptoms - 3 day Zio event monitor - BMP, mag, TSH - Echocardiogram - Nuclear stress test 2. Coronary artery disease - Patient is s/p CABG x3 in setting of NSTEMI (LLANOS-LAD, SVG-LCx, and SVG-RCA) in 07/2015 - BOLANOS an angina at time of CABG - Patient appears compensated from cardiac standpoint - Continue ASA and BB as currently ordered - LDL above goal of <70 --> Intolerant to statins - Exercise MPI stress ordered at prior OV and pending completion - Resistant to aspirin therapy as she feels her blood is thin enough on tumeric and fish oil 3. Essential hypertension - Suboptimal control on metoprolol - Encouraged dietary sodium restriction/DASH diet - Reviewed risks of HTN and principles of treatment - Goal of BP <130/80 - Home BP log 4. Hyperlipidemia with history of LP(a) elevation - Currently on Niacin - Last lipid panel 03/2022 with LDL 133 and LP(a) 112 - Unable to tolerate statins due to severe myalgias - Will discuss PCSK9i at next OV 5. Postoperative atrial fibrillation - Documented AF postop CABG treated with amiodarone - Patient in NSR today - She reports suspected prior incidences of AF but none documented - [id number] score 4 (Age, gender, HTN, and vasc) - On no anticoagulation at this time given postoperative nature - Rate controlled on metoprolol [facility] 05-19-2024 Miscellaneous Notes Pt called in inquiring if she will need to have any testing prior to her upcoming knee replacement. Pt left stating we can call or [employer] message her. Sent Beaker message KYRA: 03/23/2022 with [facility]. OVEN BAKER PLAN AND RECOMMENDATIONS: 1. Palpitations - Described as pounding sensation - Sporadic increase in resting HR from 60 bpm to 80 bpm - Sporadic increase in HR with minimal exertion to low 100's - No associated symptoms - 3 day Zio event monitor - BMP, mag, TSH - Echocardiogram - Nuclear stress test 2. Coronary artery disease - Patient is s/p CABG x3 in setting of NSTEMI (LLANOS-LAD, SVG-LCx, and SVG-RCA) in 07/2015 - BOLANOS an angina at time of CABG - Patient appears compensated from cardiac standpoint - Continue ASA and BB as currently ordered - LDL above goal of <70 --> Intolerant to statins - Exercise MPI stress ordered at prior OV and pending completion - Resistant to aspirin therapy as she feels her blood is thin enough on tumeric and fish oil 3. Essential hypertension - Suboptimal control on metoprolol - Encouraged dietary sodium restriction/DASH diet - Reviewed risks of HTN and principles of treatment - Goal of BP <130/80 - Home BP log 4. Hyperlipidemia with history of LP(a) elevation - Currently on Niacin - Last lipid panel 03/2022 with LDL 133 and LP(a) 112 - Unable to tolerate statins due to severe myalgias - Will discuss PCSK9i at next OV 5. Postoperative atrial fibrillation - Documented AF postop CABG treated with amiodarone - Patient in NSR today - She reports suspected prior incidences of AF but none documented - [id number] score 4 (Age, gender, HTN, and vasc) - On no anticoagulation at this time given postoperative nature - Rate controlled on metoprolol documented in this encounter [facility] 05-06-2024 History of Present illness Narrative Program_ID:[id number] Access Code: [email or web address] URL: [email or web address] Date: 05-06-2024 Prepared By: Rikki Tomas Program Notes Exercises - Seated 3 Way Exercise Ball Roll Out Stretch - 1 x daily - 7 x weekly - 3 sets - 10 reps - Staggered Ota-ge-Urznu - 1 x daily - 7 x weekly - 3 sets - 10 reps - Standing Terminal Knee Extension with Resistance - 1 x daily - 7 x weekly - 3 sets - 10 reps - Supine Active Straight Leg Raise - 1 x daily - 7 x weekly - 3 sets - 10 reps - Sidelying Hip Abduction - 1 x daily - 7 x weekly - 3 sets - 10 reps - Quadricep Stretch with Chair and Counter Support - 1 x daily - 7 x weekly - 3 sets - 1 reps - Clamshell with Resistance - 1 x daily - 7 x weekly - 3 sets - 10 reps - Supine March with Posterior Pelvic Tilt - 1 x daily - 7 x weekly - 3 sets - 10 reps Episode Visit Count: 2 Therapist That Will Accept/Oversee The Plan Of Care: Анна Perez Start of Care Date: 10/09/23 Onset Date: 01/02/23 Plan of Care Certification Date: 04/23/24 Next Certification Due Date: 06/18/24 Patient Identified by Name and Date of : Yes REHABILITATION AND SPORTS THERAPY PHYSICAL THERAPY TREATMENT NOTE ASSESSMENT: Moira Suh tolerated the session with expected muscle soreness. She demonstrated ongoing difficulty with stairs due to knee pain, and BLE weakness. Poor glute activation noted. Difficulty standing tall without posterior lean and retrograde LOB. The patient will continue to benefit from ongoing skilled physical therapy to progress toward set goals. PLAN FOR NEXT VISIT: progress note SUBJECTIVE: Notes she had a rough day with back and knee pain yesterday. Increased swelling after previous PT session. Pain: Pain Pain Level: 2 Pain Location: Knee - Left Post Treatment Pain Post Treatment Pain Level: (no numerical value given) OBJECTIVE MEASURES WITH LEVEL OF FUNCTION: Gait Stairs: reciprocal ascending, requires heavy assist of bilat rails. descneidng reciprocal moderate antalgia, painful knees TREATMENT: Therapeutic Exercise: 1: *Standing quad stretch on chair 2x30 sec bilat 2: Discussion on relevant musculoskaletal anatomy and physiology. 3: Supine hip extension with legs on PB x10 4: stairs x10 bilat rails. 5: *Supine PPT x10, tactile cues to squish hand under small of back 6: *SL clamshell x20 , verse pink band x20 bilat 7: *Supine PPT + alt marching x10 bilat Skilled Intervention: Patient was educated in proper exercise technique and purpose for exercises. Reviewed and educated patient on additions/changes for home exercise program as above (*). Skilled judgment was used in selection of appropriate interventions. Provided written instruction for home exercise program to facilitate proper performance and compliance. Correct performance of therapeutic exercises was facilitated with verbal and visual cuing. Billing Therapeutic Exercise Treatment Minutes: 39 Skilled Treatment Time Minutes (timed and untimed codes): 39 Total Session Time (minutes): 39 Session Start Time : 1636 Session Stop Time : 1715 Анна Perez PT, DPT documented in this encounter [facility] 05-06-2024 Note HNO ID: [id number] Author: АННА PEREZ PT, DPT Service: ? Author Type: Physical Therapist Type: Progress Notes Filed: 05/06/2024 17:17 Note Text: Episode Visit Count: 2 Therapist That Will Accept/Oversee The Plan Of Care: Анна Perez Start of Care Date: 10/09/23 Onset Date: 01/02/23 Plan of Care Certification Date: 04/23/24 Next Certification Due Date: 06/18/24 Patient Identified by Name and Date of : Yes REHABILITATION AND SPORTS THERAPY PHYSICAL THERAPY TREATMENT NOTE ASSESSMENT: Moira Suh tolerated the session with expected muscle soreness. She demonstrated ongoing difficulty with stairs due to knee pain, and BLE weakness. Poor glute activation noted. Difficulty standing tall without posterior lean and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 alcohol use. She reports that she does not use drugs. Employer And Job Title: None on file Years Of Education Completed: Not specified Marital Status: Medications/Supplements: Reviewed ` Allergies: Reviewed Review of Systems: Review of Systems sheet reviewed and discussed with patient. Physical Exam: VITALS: BP 153/88 Pulse 72 Temp (Src) 97.9 (Temporal) Wt 220 lb 10.9 oz (100.1kg) Body mass index is 37.22 kg/m . Constitutional: awake and alert, in no acute distress HEENT: normocephalic, atraumatic Neck: supple, normal range of motion, no midline or muscular tenderness Cardio: no peripheral edema Pulmonary: normal effort, in no acute respiratory distress Abdomen: soft, nondistended Neurologic: at neurologic baseline Psychiatric: normal mood and affect, cooperative, normal speech MSK: Bilateral knee varus, left foot tenderness to plantar surface, reduced extension of lumbar spine. Assessment and Plan: Encounter Diagnosis ICD-10-CM 1. Chronic pain of left knee M25.562 G89.29 2. Chronic left-sided low back pain without sciatica M54.50 G89.29 3. Somatic dysfunction of spine, thoracic M99.02 4. Somatic dysfunction of upper extremity M99.07 5. Somatic dysfunction of spine, lumbar M99.03 6. Somatic dysfunction of sacral spine M99.04 7. Somatic dysfunction of lower extremity M99.06 8. Somatic dysfunction of abdominal region M99.09 Moira Suh, a 74 year old female chronic right knee pain s/p knee replacement Dec 2022 presenting for chronic left knee pain, and chronic low back pain. Has had significant benefit from OMT thus far. Has plans for left knee replacement in a couple months. Would like to continue with OMT in the mean time. Having pain behind her knee which in the past has been related to her lower back, treatment to her lower back helps relieve some of her knee pain. -Reviewed recent relevant prior notes, labs and imaging for chief complaint OMT was performed today to improve function and reduce symptoms with good effect. [place] better after treatment, reduction in left knee pain and stiffness. Reduced lower back tension Based on the history and physical exam findings, Osteopathic manipulative treatment was indicated, verbal consent was obtained and the following procedures were performed: Procedure: Osteopathic Manipulative Treatment Osteopathic manipulative treatment (OMT) Time/Date:04/11/2024 3:22 PM Informed Consent Consent Obtained: Verbal [place] Protocol A moment to CARE was completed. SIGN IN Special Equipment: N/A Patient/Surrogate Stated/Verified: Patient name and Date of TIME OUT Consent Obtained:Verbal Body Regions: Sacrum, Thoracic, Abdomen, Upper Extremities, Lower Extremities and Lumbar Thoracic Technique: T6-8 RRSL: treated with Stills and Myofascial release Lumbar Technique: L3 ERSL, L4-5 RR: treated with facilitated oscillatory technic and Facilitated positional release Sacrum Technique: Left SAHRA restricted, treated with Facilitated positional release Abdomen Technique: Uterus low and left with visceral restrictions: treated with visceral Upper Extremeties Technique: Bilateral axillary fascia restrictions: treated with Myofascial release Lower Extremities Technique:Left hamstring hypertonicity bilateral distal heads, left periformis hypertonicity, midfoot restrictions, calcaneous plantar drop on left: treated with paz percussion, Balanced ligamentous tension, soft tissue Number of Body Regions: 5- 6 Disposition: Osteopathic manipulation tolerated well, reports subjective and objective improvement, improvement in range of motion and mechanics, instructed to increase hydration for the next 24 hours and instructed to follow up if symptoms worsen or fail to improve No follow-ups on file. Start time: 2:30pm; end time: 3:20pm Time Spent (min): 50 >50% of time spent on the date of service was dedicated to preparing to see the patient, [id number] patient care, completing clinical documentation, obtaining and/or reviewing separately obtained history, performing a medically appropriate examination, and counseling and educating the patient/family/caregiver. Patient seen and evaluated with Dr Ferrer; please see attestation. Dylan Liang DO PGY-IV, ONMM 2:37 PM 04/11/2024 This note was partially generated using voice recognition software. It has been reviewed for typographical errors, however some may remain. Any questions regarding meaning or word use should be directed to the author. On the date above, I interviewed and examined the patient. I was present for the jones component of the exam and treatment and I fully participated in Moira Canyon's care. I discussed the management with the resident, Dr. Dylan Liang DO. I reviewed the note above and I agree with and confirm those findings as well as the plan of care. I reviewed the labs and the recent notes in EPIC. I have edited the note based on my personal assessment of the patient. My edits are represented by deletions and italic additions. I agree with the work-up as detailed in the resident's note above. Rachel Cotton D.O.-ONRUDDY, C- Associate Pump Room Operator, Osteopathic Neuromusculoskeletal Medicine Residency [facility] documented in this encounter [facility] 04-08-2024 Note HNO ID: [id number] Author: АННА PEREZ PT, DPT Service: ? Author Type: Physical Therapist Type: Progress Notes Filed: 04/08/2024 10:52 Note Text: 04/08/2024 [facility] PHYSICAL THERAPY DISCONTINUANCE OF CARE Plan of Care Period: Start of Care Date: 10/09/23 Last Visit Date: 02/14/2024 Therapy Program: The following is a summary of the interventions provided for this episode of care; Therapeutic exercise Assessment: The following is the goal status: Goals for Episode of Care: created on 10/09/23 (Updated 01/30/2024) [place] in home exercise program.-- progressing Patient will decrease pain rating by 2 points to meet minimal clinical important difference for numeric pain rating scale.-- met thus far Patient will increase active ROM of R knee to 0-120 to allow pt to to improve gait mechanics / gait pattern .-- not met Patient will demonstrate increase in BLE strength to 5/5 during manual muscle testing in order to improve function for prior functional tasks.-- not met Patient will Improve Timed Up and Go to <9.5 seconds to demonstrate decreased risk of falling.-- not assessed Patient will improve 30 second sit to stand to 15 reps without UE support to demonstrate improvement in functional lower extremity strength.-- progressing REVISED: Improved ability to walk and navigate stairs without pain and with increased confidence. Patient Goals: Improve strength and mobility, be able to go up stairs easier Based on the most recent progress report, patient was progressing as expected toward functional goals based on documented subjective information on progress. Reason for Discontinuation of Care: Patient has not returned to therapy and per chart is scheduled for L TKR with Dr. Garrido in July. Анна Perez, PT, DPT [facility] 04-03-2024 Instructions Laura Belcher RN - 04/03/2024 2:02 PM EST DATE OF SURGERY 07/21/2024 AT [facility] Pre op packet provided with additional resources and contact information should the patient have any additional questions or concerns Expectations of same day discharge were reviewed with the patient provided physical therapy protocol is met, pain is well controlled and they are medically cleared for discharge PRE-ADMISSION TESTING TO CONTACT YOU FOR MEDICAL AND ANESTHESIA CLEARANCE WITHIN 30 DAYS OF YOUR SURGERY [facility]. TO SCHEDULE PLEASE CALL [facility]. TO SCHEDULE PLEASE CALL Dr Coyle will send prescription for mupirocin (Bactroban) ointment to your pharmacy to use 5 days prior to your surgery. Please apply twice daily for 5 days. Apply 0.5 inch ribbon with cotton swab (Q-tip) to each nostril in the morning and evening for 5 days prior to and including day of surgery. This will help prevent staph infection. documented in this encounter [facility] 04-03-2024 Note HNO ID: [id number] Author: ALECIA PEMBERTON DO Service: ? Author Type: Resident Type: Progress Notes Filed: 04/03/2024 18:14 Note Text: CONSULT ORTHOPAEDIC: KNEE PRIMARY CARE PHYSICIAN: Silvestre Chance DO REFERRING PROVIDER: SELF ASSESSMENT AND PLAN Impression: Left Knee Severe Degenerative Osteoarthritis, Primary HPI: Patient is a 74-year-old female presenting to us with chronic ongoing left knee pain. Patient previously had a right total knee arthroplasty done with on 01/02/2023. Patient states that her recovery was very cumbersome, including substantial edema, and clicking noted in the knee. Patient went to a neuromuscular clinic and underwent treatment there for her right knee, noting substantial improvement in the clicking, as well as range of motion and edema reduction. Patient has a history of CAD, and NSTEMI status post CABG, as well as paroxysmal A-fib. She is not on any anticoagulation at this time. Last echo done 11/30/2022 noted an EF of 64 %. Patient denies any immunosuppression, chronic steroid use, or diabetes. Patient denies any smoking history. Patient has undergone physical therapy, bracing, and anti-inflammatories for the left knee without improvement. PE: Physical exam of the right knee demonstrates a very stable right total knee arthroplasty. The incision looks well-healed with no erythema or drainage. Stable with varus/valgus, anterior/posterior drawer without clicking or instability. Patient still has a mild effusion of the right knee. Physical exam of the left knee demonstrates no erythema, mild effusion of the left knee, no abrasions, bruising, or warmth. Patient range of motion includes approximately 5 to 10 degrees of a flexion contracture, with flexion up to 120 degrees without pain. Patient stable on varus/valgus, anterior/posterior drawer, with negative Emeterio, negative Hortencia. Patient tender to palpation over the medial and lateral joint line. Patient neurovascularly intact distally Implants: Right TKA [place] triathlon done via [employer] assistance Imaging: Imaging the left knee demonstrates severe osteoarthritic changes, including subchondral sclerosis, cyst formation, and osteophyte formation of the medial, lateral, and patellofemoral joints. There is presence of a right total knee arthroplasty seen on the right knee, with no evidence of subsidence, or loosening of the implants. A/P: Sarah, oxy 5 mg only, Mobic 7.5 x 6 weeks, ASA, Doxy x 7 days Diagnoses: (M17.12) Primary osteoarthritis of left knee (primary encounter diagnosis) Based upon the evaluation today and after discussions with Moira Suh, Moira Suh has significant, worsening pain at the knee. This pain is increased with activity and weight bearing, and interferes with activities of daily living. These symptoms have continued despite a number of non-surgical measures, including a trial of oral pain medication and attempted physical therapy/ structured exercise program and/or use of an assistive device/ bracing (for at least 12 weeks unless the patient was unable to tolerate these measures as discussed above). At this point, the patient will not benefit from further PT due to the severity of their condition. The patient's physical examination is consistent with limitations in range of motion, pain with passive range of motion, crepitus, and effusion/ synovitis. These examination findings are corroborated by imaging findings of joint space narrowing, periarticular osteophyte formation, and subchondral sclerosis. The patient has been treated by the practice and all reasonable treatments have failed to control the disease, which causes significant pain and limits activities of daily living. The patient has failed conservative treatment and joint replacement surgery was discussed and agreed upon by both provider and patient. We will proceed with surgical management to improve function and relieve pain refractory to non-surgical measures. Left Primary Total Knee Arthroplasty as evidenced by six months of unsuccessful non-operative treatment as outlined in the HPI below and progressive symptoms. Progressive Symptoms Include: Pain impacting sleep or causing fatigue Pain impacting work Pain worsened by weight bearing Pain effecting living situation. Surgery Details Date and Location: At [facility]. Implants: [employer]: Yes Predicted LOS: Informed consent obtained in the office today. The risks and benefits of surgery were discussed at length including but not limited to the risks of infection, bleeding, nerve or blood vessel injury, deep venous thrombosis, pulmonary embolism, arthrofibrosis, reflex sympathetic dystrophy, , paralysis, knee or patellar dislocation, extensor mechanism injury, bone fracture, component loosening or failure requiring re-operation or amputation. Informed consent was obtained and the patient was scheduled for (more content not included)... [facility] 04-03-2024 History of Present illness Narrative Images from the original note were not included. CONSULT ORTHOPAEDIC: KNEE PRIMARY CARE PHYSICIAN: Silvestre Chance DO REFERRING PROVIDER: SELF ASSESSMENT & PLAN Impression: Left Knee Severe Degenerative Osteoarthritis, Primary HPI: Patient is a 74-year-old female presenting to us with chronic ongoing left knee pain. Patient previously had a right total knee arthroplasty done with on 01/02/2023. Patient states that her recovery was very cumbersome, including substantial edema, and clicking noted in the knee. Patient went to a neuromuscular clinic and underwent treatment there for her right knee, noting substantial improvement in the clicking, as well as range of motion and edema reduction. Patient has a history of CAD, and NSTEMI status post CABG, as well as paroxysmal A-fib. She is not on any anticoagulation at this time. Last echo done 11/30/2022 noted an EF of 64 %. Patient denies any immunosuppression, chronic steroid use, or diabetes. Patient denies any smoking history. Patient has undergone physical therapy, bracing, and anti-inflammatories for the left knee without improvement. PE: Physical exam of the right knee demonstrates a very stable right total knee arthroplasty. The incision looks well-healed with no erythema or drainage. Stable with varus/valgus, anterior/posterior drawer without clicking or instability. Patient still has a mild effusion of the right knee. Physical exam of the left knee demonstrates no erythema, mild effusion of the left knee, no abrasions, bruising, or warmth. Patient range of motion includes approximately 5 to 10 degrees of a flexion contracture, with flexion up to 120 degrees without pain. Patient stable on varus/valgus, anterior/posterior drawer, with negative Emeterio, negative Hortencia. Patient tender to palpation over the medial and lateral joint line. Patient neurovascularly intact distally Implants: Right TKA [place] triathlon done via [employer] assistance Imaging: Imaging the left knee demonstrates severe osteoarthritic changes, including subchondral sclerosis, cyst formation, and osteophyte formation of the medial, lateral, and patellofemoral joints. There is presence of a right total knee arthroplasty seen on the right knee, with no evidence of subsidence, or loosening of the implants. A/P: Sarah, oxy 5 mg only, Mobic 7.5 x 6 weeks, ASA, Doxy x 7 days Diagnoses: (M17.12) Primary osteoarthritis of left knee (primary encounter diagnosis) Based upon the evaluation today and after discussions with Moira Suh, Moira Suh has significant, worsening pain at the knee. This pain is increased with activity and weight bearing, and interferes with activities of daily living. These symptoms have continued despite a number of non-surgical measures, including a trial of oral pain medication and attempted physical therapy/ structured exercise program and/or use of an assistive device/ bracing (for at least 12 weeks unless the patient was unable to tolerate these measures as discussed above). At this point, the patient will not benefit from further PT due to the severity of their condition. The patient's physical examination is consistent with limitations in range of motion, pain with passive range of motion, crepitus, and effusion/ synovitis. These examination findings are corroborated by imaging findings of joint space narrowing, periarticular osteophyte formation, and subchondral sclerosis. The patient has been treated by the practice and all reasonable treatments have failed to control the disease, which causes significant pain and limits activities of daily living. The patient has failed conservative treatment and joint replacement surgery was discussed and agreed upon by both provider and patient. We will proceed with surgical management to improve function and relieve pain refractory to non-surgical measures. Left Primary Total Knee Arthroplasty as evidenced by six months of unsuccessful non-operative treatment as outlined in the HPI below and progressive symptoms. Progressive Symptoms Include: Pain impacting sleep or causing fatigue Pain impacting work Pain worsened by weight bearing Pain effecting living situation. Surgery Details Date and Location: At [facility]. Implants: [employer] Rob[employer]: Yes Predicted LOS: Informed consent obtained in the office today. The risks and benefits of surgery were discussed at length including but not limited to the risks of infection, bleeding, nerve or blood vessel injury, deep venous thrombosis, pulmonary embolism, arthrofibrosis, reflex sympathetic dystrophy, , paralysis, knee or patellar dislocation, extensor mechanism injury, bone fracture, component loosening or failure requiring re-operation or amputation. Informed consent was obtained and the patient was scheduled for surgery. We also discussed fixation strategies including cement and cementless fixation and advantages and disadvantages of each. We discussed the details of the surgery as well as rehabilitation. All questions were answered, and the patient wishes to proceed with surgery.. The patient has been ordered: Office Visit on 01/30/25 RAISED TOILET SEAT WALKER FOLDING WHEELED W/O S XR LEG FRONTAL HIP TO ANKLE MECHANICAL AXIS No orders placed today. CONSULTS: Patient does not require consults for optimization at this time. Total Joint Athroplasty - Risk Calculator Risk Factors for Total Knee Arthroplasty (TKA) Major Risk Factors Obesity Moderate Risk High: BMI > 40 Moderate: BMI 30-40 Normal: BMI < 30 Diabetes normal High: A1C > 8 Moderate: A1C 7-8 Normal: A1C < 7 Hx of DVT / PE normal High: dx of DVT / PE Normal: no dx of DVT / PE Smoking normal High: Current smoker Normal: Non smoker Narcotics Use normal High:NarxCare >=300 Moderate: 100-299 Normal: 0-99 Depression normal High: PHQ-9 >14 Moderate: PHQ-9 5-14 Normal: PHQ-9 < 5 Area Deprivation Index (ABBI) Unknown Risk High: ABBI Score > 75 Moderate: ABBI 50-75 Normal: ABBI < 50 Obesity: weight management recommended BMI Readings from Last 3 Encounters: 03/04/24 : 38.18 kg/m 01/02/24 : 37.10 kg/m 11/13/23 : (P) 36.44 kg/m Area Deprivation Index (ABBI) 10/26/2021 07/10/2022 ABBI Score National Score 57 65 Patient Health Questionnaire (PHQ-9) 12/20/2018 09/24/2023 04/01/2024 PHQ-9 PHQ-2 Score 0 0 2 1 Multiple values from one day are sorted in reverse-chronological order (0-4) minimal depression, (5-9) mild depression, (10-14) moderate depression, (15-19) moderately severe depression, (20-27) severe depression Bone Density Risk Screen Moira Suh is at risk for bone loss and has not had a bone densitometry scan in the last 2 years (date of last scan: None on file). Recommend a bone densitometry scan and if indicated on the bone density results, a consult to a bone health specialist (Rheumatology, Endocrinology, or Women's Health) for bone assessment. Risk Factors: History of falls Prednisone or use of systemic steroids Chronic Malnutrition Additional Risk Factors Past Orthopaedic Surgery: Moira had knee surgery on 01/02/2023 with Nela Ferreira. Malnutrition: No Malnutrition Screening Tool (MST) score on file- please complete the MST screening tool (click here to open) and refresh the note. 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) Dry Skin Hair Loss Bmi 34.0-34.9,Adult Exposure to Mercury Paf (Paroxysmal Atrial Fibrillation) (Hcc) Insulin Resistance Vitamin D Deficiency Former Smoker S/P Total Knee Arthroplasty, Right Primary Osteoarthritis of Left Knee Primary Osteoarthritis of Right Knee Medicare Annual Wellness Visit, Subsequent Actinic Keratosis Myalgia Hyperglycemia Dysuria Aftercare Following Right Knee Joint Replacement Surgery Chronic Pain of Right Knee SUBJECTIVE CHIEF COMPLAINT: Knee Pain HPI: Moira Suh is a 74 year old patient with the presenting complaint of Knee Pain of the Left Knee. 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 The problem began limiting activities 1-6 months ago. Moira reports a current pain level of 7 (Knee-Left). She describes the pain as Dull, Aching. The pain is Intermittent . Interventions tried include Relaxation, Other: See comment. Use of micro current machine on left knee, leg and lower back.. PROMIS Physical Function Score Descriptive Summary for PROMIS Physical Function T-score = 33 (Percentile 4) Much difficulty - Carry a laundry basket up a flight of stairs. Some difficulty - Walk at a normal speed. Unable - Walk more than a mile (1.6 km). 12/25/2023 01/27/2024 04/01/2024 PROMIS CAT Physical Function T-Score 34 (moderate dysfunction) 34 (moderate dysfunction) 33 (moderate dysfunction) Percentile 5 5 4 FUNCTIONAL STATUS: Walk indoors, such as around the house (1.75 METs) Do light work around the house, such as dusting or washing dishes (2.70 METs) Take care of self, that is eating, dressing, bathing, using the toilet (2.75 METs) Walk a block or two on level ground (2.75 METs) Do moderate work around the house such as vacuuming, sweeping floors, or carrying in groceries (3.50 METs) PREVIOUS TREATMENTS: Last knee-related PT visit: 02/14/2024 (Knee - Right) Last Knee Surgery: 01/02/2023 with Nela Ferreira Past anti-inflammatory medications (not necessarily for this reason for visit): dexamethasone sodium phosphate, diclofenac sodium, ketorolac tromethamine Attempted Weight Loss Medical Treatments: OTC NSAIDS for 3 Months or Greater (Aleve) Physical Therapy: Activities Modified and PT Three Months or Greater 1-2 times per week REVIEW OF SYSTEMS: PAIN ASSESSMENT: See HPI. MUSCULOSKELETAL: See HPI. 01/02/2023 Malnutrition Screening Tool (MST) Lost Weight Recently Without Trying? If Yes, Amount of Weight Loss(lbs) 0:No Eating Poorly Because of a Decreased Appetite 0:No Weight Loss Score (Calculated) 0 Appetite Score (Calculated) 0 Total MST Score (Calculated) 0 PAST MEDICAL HISTORY Diagnosis Date Atrial fibrillation (HCC) Coronary artery disease Holter monitor, abnormal extra beats Hypercholesteremia Hyperlipidemia Hypertension Insulin resistance 07/19/2017 Leiomyoma of uterus, unspecified Low HDL (under 40) PAST SURGICAL HISTORY Procedure Laterality Date CORONARY ARTERY BYPASS GRAFT HX 2016 3 vessel FNA WITH IMAGING 11/27/2012 U/S FNA bilateral thyroid PAST SURGICAL HISTORY OF age 28 1 ovary removed, 1 tube reconstructed from ectopic PAST SURGICAL HISTORY OF age 20 tendon repairs to wrists after going through glass door PAST SURGICAL HISTORY OF removal of uterine polyp TOTAL KNEE REPLACEMENT Right 01/02/2023 FAMILY HISTORY Problem Relation Age of Onset Prostate Cancer Father Thyroid Mother Hypertension Mother Thyroid Sister Social History Tobacco Use Smoking status: Former Current packs/day: 1.00 Average packs/day: 1 pack/day for 10.0 years (10.0 ttl pk-yrs) Types: Cigarettes Smokeless tobacco: Never Vaping Use Vaping status: Never Used Substance Use Topics Alcohol use: Yes Comment: socially Drug use: No ALLERGIES: Atorvastatin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 Reviewed and educated patient on additions/changes for home exercise program as above (*). Skilled judgment was used in selection of appropriate interventions. Provided written instruction for home exercise program to facilitate proper performance and compliance. Correct performance of therapeutic exercises was facilitated with verbal and visual cuing. Billing Therapeutic Exercise Treatment Minutes: 44 Skilled Treatment Time Minutes (timed and untimed codes): 44 Total Session Time (minutes): 44 Session Start Time : 1303 Session Stop Time : 1347 Анна Perez PT, DPT [facility] 02-12-2024 Telephone encounter Note Patient is authorized for follow up therapy, please call to schedule Need to schedule: once a week for every other week for a total of 2 visits. They can schedule with [facility] [facility] Miscellaneous Notes Patient is authorized for follow up therapy, please call to schedule Need to schedule: once a week for every other week for a total of 2 visits. They can schedule with Yoana. documented in this encounter [facility] 01-30-2024 History of Present illness Narrative Program_ID:[id number] Access Code: [email or web address] URL: [email or web address] Date: 01-30-2024 Prepared By: Rikki Tomas Program Notes Exercises - Hip Flexor Stretch at Edge of Bed - 1 x daily - 7 x weekly - 3 sets - 10 reps - Supine Bridge - 1 x daily - 7 x weekly - 3 sets - 10 reps - Staggered Uzw-fc-Yvqok - 1 x daily - 7 x weekly - 3 sets - 10 reps - Standing Terminal Knee Extension with Resistance - 1 x daily - 7 x weekly - 3 sets - 10 reps - Supine Active Straight Leg Raise - 1 x daily - 7 x weekly - 3 sets - 10 reps - Sidelying Hip Abduction - 1 x daily - 7 x weekly - 3 sets - 10 reps Images from the original note were not included. Episode Visit Count: 3 Therapist That Will Accept/Oversee The Plan Of Care: Анна Perez Start of Care Date: 10/09/23 Onset Date: 01/02/23 Plan of Care Certification Date: 01/30/24 Next Certification Due Date: 03/26/24 Patient Identified by Name and Date of : Yes REHABILITATION AND SPORTS THERAPY PHYSICAL THERAPY PROGRESS REPORT PLAN OF CARE UPDATE: Assessment: Moira Suh demonstrates ongoing R functional quad weakness with stairs. R knee ROM continues to be somewhat limited into flexion, noting tightness at distal quad. Notes improvements in pain levels and clicking at posterior knee since previous PT session. Difficulty with stairs. Improvements in knee clicking and pain levels. Patient continues to present with impairments in gait, independence in exercise, overall function, strength, and symptom management that interfere with stair negotiation . Current prognosis is Good due to: current objective clinical presentation, positive past response to therapy, Prognosis may be limited due to chronic nature of impairments . The patient will benefit from continued skilled therapy services to meet the updated goals for this plan of care as noted below. Goals for Episode of Care: created on 10/09/23 (Updated 01/30/2024) [place] in home exercise program.-- progressing Patient will decrease pain rating by 2 points to meet minimal clinical important difference for numeric pain rating scale.-- met thus far Patient will increase active ROM of R knee to 0-120 to allow pt to to improve gait mechanics / gait pattern .-- not met Patient will demonstrate increase in BLE strength to 5/5 during manual muscle testing in order to improve function for prior functional tasks.-- not met Patient will Improve Timed Up and Go to <9.5 seconds to demonstrate decreased risk of falling.-- not assessed Patient will improve 30 second sit to stand to 15 reps without UE support to demonstrate improvement in functional lower extremity strength.-- progressing REVISED: Improved ability to walk and navigate stairs without pain and with increased confidence. Patient Goals: Improve strength and mobility, be able to go up stairs easier Time Frame for Goals and Treatment : 03/26/24 Patient Goals: Improve strength and mobility, be able to go up stairs easier Planned Interventions, Frequency, and Duration: 1x every other week, 8 weeks Total Number of Visits Planned: 4 Patient to be seen for Therapeutic exercise (98031), Neuromuscular re-education (20458), Therapeutic activities (00366), Manual therapy (20982), Self-detention management (76629), Gait Training (36316), Patient/Family/Caregiver Education, Body Mechanics Training PLAN FOR NEXT VISIT: Progress quad strengthening, Cybex, longsitting SLR, banded hip ABD, fwd lateral step ups SUBJECTIVE: Patient continues to see osteopathic medicine, this is the only relief. Clicking in knee has stopped since seeing osteopathic medicine. Continues with HEP from seeing PT in October. Cannot do stairs well into the house, feels very debilitated. X-ray of TKR components shows good alignment. Patient Goals: Improve strength and mobility, be able to go up stairs easier Functional Limitations: stair negotiation Prior Level of Function: Independent without limitations Intake Information: Prescription present Previous Treatment: NSAIDs , Ice , TENS Falls Interview: No positive findings with falls interview Pain: Pain Pain Level: 0 Pain Location: Knee - Right Post Treatment Pain Post Treatment Pain Level: No Change Post Treatment Pain Location: Knee - Right PROMIS Scales 01/27/2024 12/25/2023 10/08/2023 Higher is Better Phys Func - Score 34 (moderate dysfunction) 34 (moderate dysfunction) Phys Func - Percentile 5 5 Self-Eff Symptom - Score 42 (Average) 38 (Low) Self-Eff Symptom - Percentile 21 12 T-scores: mean of general population = 50. 5 points is clinically meaningfully difference Percentiles provide an indication of how the patient's score ranks in relation to the general population. Higher percentile rankings indicate better function/quality of life. 50th percentile is the average of the general population and indicates half of respondents had a worse score. OBJECTIVE MEASURES WITH LEVEL OF FUNCTION: Knee Observations R Knee Palpation Tenderness: (medial knee) LE AROM R Knee Extension: -6 Degrees R Knee Flexion: 110 Degrees L Knee Extension: -8 Degrees L Knee Flexion: 118 Degrees LE Strength R Hip Flexion (L2): 4+/5 L Hip Flexion (L2): 4+/5 Gait Gait Observation: decreased TKE BL- worse on L, trendelenberg Stairs: Non reciprocal - ascending L, descending R first but sideways, needs rail Functional Performance Test Results 30 Second Chair Stand Test: 11 reps TREATMENT: Therapeutic Exercise: 1: re-assessment per above 2: HEP review 3: *Supine bridge x10 4: *Supine hip flexors stretch off EOB 2x30 sec right 5: *Seated LAQ 5# ankle weight 5 sec hold, 5 sec eccentric x15 6: *Stagger sit to stand slow eccentric lower x10 R 7: Discussed ongoing performance of ASLR and SL hip ABD already on HEP 8: *Standing TKE R verse black TB x15 9: Significant education on rationale of all exercises, and explanation of relevant anatomy. Discussed mind muscle connection. 10: Discussed importance of achieving good muscle fatigue in order to see strength changes. Skilled Intervention: Patient was educated in proper exercise technique and purpose for exercises. Reviewed and educated patient on additions/changes for home exercise program as above (*). Skilled judgment was used in selection of appropriate interventions. Provided written instruction for home exercise program to facilitate proper performance and compliance. Correct performance of therapeutic exercises was facilitated with verbal and visual cuing. Patient education as noted. Billing Therapeutic Exercise Treatment Minutes: 53 Skilled Treatment Time Minutes (timed and untimed codes): 53 Total Session Time (minutes): 53 Session Start Time : 1230 Session Stop Time : 1323 Анна Perez PT, DPT documented in this encounter [facility] 01-30-2024 Note HNO ID: [id number] Author: АННА PEREZ PT, DPT Service: ? Author Type: Physical Therapist Type: Progress Notes Filed: 01/30/2024 14:47 Note Text: Episode Visit Count: 3 Therapist That Will Accept/Oversee The Plan Of Care: Анна Perez Start of Care Date: 10/09/23 Onset Date: 01/02/23 Plan of Care Certification Date: 01/30/24 Next Certification Due Date: 03/26/24 Patient Identified by Name and Date of : Yes REHABILITATION AND SPORTS THERAPY PHYSICAL THERAPY PROGRESS REPORT PLAN OF CARE UPDATE: Assessment: Moira Suh demonstrates ongoing R functional quad weakness with stairs. R knee ROM continues to be somewhat limited into flexion, noting tightness at distal quad. Notes improvements in pain levels and clicking at posterior knee since previous PT session. Difficulty with stairs. Improvements in knee clicking and pain levels. Patient continues to present with impairments in gait, independence in exercise, overall function, strength, and symptom management that interfere with stair negotiation . Current prognosis is Good due to: current objective clinical presentation, positive past response to therapy, Prognosis may be limited due to chronic nature of impairments . The patient will benefit from continued skilled therapy services to meet the updated goals for this plan of care as noted below. Goals for Episode of Care: created on 10/09/23 (Updated 01/30/2024) [place] in home exercise program.-- progressing Patient will decrease pain rating by 2 points to meet minimal clinical important difference for numeric pain rating scale.-- met thus far Patient will increase active ROM of R knee to 0-120 to allow pt to to improve gait mechanics / gait pattern .-- not met Patient will demonstrate increase in BLE strength to 5/5 during manual muscle testing in order to improve function for prior functional tasks.-- not met Patient will Improve Timed Up and Go to <9.5 seconds to demonstrate decreased risk of falling.-- not assessed Patient will improve 30 second sit to stand to 15 reps without UE support to demonstrate improvement in functional lower extremity strength.-- progressing REVISED: Improved ability to walk and navigate stairs without pain and with increased confidence. Patient Goals: Improve strength and mobility, be able to go up stairs easier Time Frame for Goals and Treatment : 03/26/24 Patient Goals: Improve strength and mobility, be able to go up stairs easier Planned Interventions, Frequency, and Duration: 1x every other week, 8 weeks Total Number of Visits Planned: 4 Patient to be seen for Therapeutic exercise (78416), Neuromuscular re-education (56180), Therapeutic activities (51163), Manual therapy (89928), Self-detention management (26041), Gait Training (08209), Patient/Family/Caregiver Education, Body Mechanics Training PLAN FOR NEXT VISIT: Progress quad strengthening, Cybex, longsitting SLR, banded hip ABD, fwd lateral step ups SUBJECTIVE: Patient continues to see osteopathic medicine, this is the only relief. Clicking in knee has stopped since seeing osteopathic medicine. Continues with HEP from seeing PT in October. Cannot do stairs well into the house, feels very debilitated. X-ray of TKR components shows good alignment. Patient Goals: Improve strength and mobility, be able to go up stairs easier Functional Limitations: stair negotiation Prior Level of Function: Independent without limitations Intake Information: Prescription present Previous Treatment: NSAIDs , Ice , TENS Falls Interview: No positive findings with falls interview Pain: Pain Pain Level: 0 Pain Location: Knee - Right Post Treatment Pain Post Treatment Pain Level: No Change Post Treatment Pain Location: Knee - Right PROMIS Scales 01/27/2024 12/25/2023 10/08/2023 Higher is Better Phys Func - Score 34 (moderate dysfunction) 34 (moderate dysfunction) Phys Func - Percentile 5 5 Self-Eff Symptom - Score 42 (Average) 38 (Low) Self-Eff Symptom - Percentile 21 12 T-scores: mean of general population = 50. 5 points is clinically meaningfully difference Percentiles provide an indication of how the patient's score ranks in relation to the general population. Higher percentile rankings indicate better function/quality of life. 50th percentile is the average of the general population and indicates half of respondents had a worse score. OBJECTIVE MEASURES WITH LEVEL OF FUNCTION: Knee Observations R Knee Palpation Tenderness: (medial knee) LE AROM R Knee Extension: -6 Degrees R Knee Flexion: 110 Degrees L Knee Extension: -8 Degrees L Knee Flexion: 118 Degrees LE Strength R Hip Flexion (L2): 4+/5 L Hip Flexion (L2): 4+/5 Gait Gait Observation: decreased TKE BL- worse on L, trendelenberg Stairs: Non reciprocal - ascending L, descending R first but sideways, needs rail Functional Performance Test Results 30 Second Chair Stand Lorraine (more content not included)... [facility] 01-02-2024 Note HNO ID: [id number] Author: SILVESTRE CHANCE, DO Service: ? Author Type: Physician Type: Progress Notes Filed: 01/02/2024 21:56 Note Text: CC: Moira Suh is a 73 year old female who presents to the office for follow up HPI: HTN, taking metoprolol as prescribed. Denies any CP or dyspnea or dizziness or Lh or edema. HPL, refuses statin therapy. Taking supplements as well as a healthy whole food diets with very minimal sugars or simple starches in her diet. No fast foods. Hx of CAD, no recent symptoms. Joint pain, b/l knees, she has a history of right total knee replacement surgery and has had some chronic pain after this. Interested in considering seeing osteopathic physician for surgery on left knee in the future. Intermittent urinary urgency and frequency symptoms, no hematuria or flank pain or fevers or chills. Concerns for potential UTI PAST MEDICAL HISTORY Diagnosis Date Atrial fibrillation (HCC) Coronary artery disease Holter monitor, abnormal extra beats Hypercholesteremia Hyperlipidemia Hypertension Insulin resistance 07/19/2017 Leiomyoma of uterus, unspecified Low HDL (under 40) PAST SURGICAL HISTORY Procedure Laterality Date CORONARY ARTERY BYPASS GRAFT HX 2016 3 vessel FNA WITH IMAGING 11/27/2012 U/S FNA bilateral thyroid PAST SURGICAL HISTORY OF age 28 1 ovary removed, 1 tube reconstructed from ectopic PAST SURGICAL HISTORY OF age 20 tendon repairs to wrists after going through glass door PAST SURGICAL HISTORY OF removal of uterine polyp TOTAL KNEE REPLACEMENT Right 01/02/2023 Current Outpatient Medications Medication Sig MEDICATION, NON-DATABASE Medical Marijuana Cream metoprolol succinate ER (TOPROL XL) 25 mg 24 hr tablet Take 1 tablet by mouth once daily. narcher-lhpb-pnrnw-oreg-capryl 100 mg-150 mg- 50 mg-150 mg cap Take 1 tablet by mouth twice daily. [employer] EPA-DHA 2400 (High Concentrate EPA/DHA liquid) (Learn[employer]) Take one teaspoon (5 ml) 1 times daily with food (Patient taking differently: Take 5 mL by mouth once daily. Take one teaspoon (5 ml) 1 times daily with food) MAGNESIUM ORAL Take 135 Units by mouth once daily. Takes 4 capsules daily ascorbic acid, vitamin C, (VITAMIN C) 500 mg tablet Take 2,000 mg by mouth once daily. B-Complex Plus (Pure Encapsulations) - 1qD stress/energy/hormones/detox/weigh t loss Take 1 capsule by mouth once daily. CoQ10, Liposomal Ubiquinol, 200 mg cap Take 1 capsule by mouth daily with food. (Patient taking differently: Take 2 capsules by mouth daily with food.) cholecalciferol (VITAMIN D3) 1,000 unit tab tablet Take 1,000 Units by mouth once daily. No current facility-administered medications for this visit. ALLERGIES Allergen Reactions Atorvastatin Calcium Myalgia Caused severe myalgias to bilateral thighs and across back Codeine Mental Status Change Can hear whats going on around her but she can't wake up Crestor [Rosuvastat* Myalgia 20 mg caused severe myalgias to upper thighs and across back Social History Tobacco Use Smoking status: Former Current packs/day: 1.00 Average packs/day: 1 pack/day for 10.0 years (10.0 ttl pk-yrs) Types: Cigarettes Smokeless tobacco: Never Vaping Use Vaping status: Never Used Substance Use Topics Alcohol use: Yes Comment: socially Drug use: No ROS: See HPI PE: BP 142/90 Pulse 64 Temp (Src) 97.8 (Left Tympanic) Resp 20 Ht 5' 4.567 (1.64m) Wt 220 lb (99.8kg) BMI 37.10 kg/(m2). Gen: AANDOX3, NAD, non-toxic appearing HEENT: PERRLA, EOMs intact b/l, nares without drainage, pharynx without erythema, exudate, lesions, or drainage. Uvula midline. Neck: No LAD, no thyromegaly, no meningismus. CV: RRR, no murmur Lungs: CTA b/l, no wheezing Skin: No rashes, l+ actinic keratosis on tip of distal nose and left inferior cheek (2 total) Arthritis and joint pain changes of left knee without effusion present No edema legs, No CVA pain Normal peripheral pulses ASSESSMENT/PLAN: 1. Medicare annual wellness visit, subsequent - ICD9: V70.0, ICD10: Z00.00 (primary diagnosis) - Counseled on healthy diet and regular exercise - Discussed need and benefit for weight loss. BMI 37.10 kg/(m2) 2. Dysuria - ICD9: 788.1, ICD10: R30.0 recurrent - Send urine for culture - Patient education for prevention given - URINALYSIS, WITH MICROSCOPIC - UA DIP, URINE (POC) - URINE CULTURE 3. Hyperlipidemia, unspecified hyperlipidemia type - ICD9: 272.4, ICD10: E78.5 - Control undetermined, due for labs - Counseled on healthy diet and regular exercise - Discussed need for and benefit of weight loss. BMI 37.10 kg/(m2) - HEMOGLOBIN A1C - LIPOPROTEIN (A) 4. 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 Myalgia - ICD9: 729.1, ICD10: M79.10 Recheck labs as ordered Consider PHYSICAL THERAPY to h (more content not included)... [facility] 01-02-2024 History of Present illness Narrative CC: Moira Suh is a 73 year old female who presents to the office for follow up HPI: HTN, taking metoprolol as prescribed. Denies any CP or dyspnea or dizziness or Lh or edema. HPL, refuses statin therapy. Taking supplements as well as a healthy whole food diets with very minimal sugars or simple starches in her diet. No fast foods. Hx of CAD, no recent symptoms. Joint pain, b/l knees, she has a history of right total knee replacement surgery and has had some chronic pain after this. Interested in considering seeing osteopathic physician for surgery on left knee in the future. Intermittent urinary urgency and frequency symptoms, no hematuria or flank pain or fevers or chills. Concerns for potential UTI PAST MEDICAL HISTORY Diagnosis Date Atrial fibrillation (HCC) Coronary artery disease Holter monitor, abnormal extra beats Hypercholesteremia Hyperlipidemia Hypertension Insulin resistance 07/19/2017 Leiomyoma of uterus, unspecified Low HDL (under 40) PAST SURGICAL HISTORY Procedure Laterality Date CORONARY ARTERY BYPASS GRAFT HX 2016 3 vessel FNA WITH IMAGING 11/27/2012 U/S FNA bilateral thyroid PAST SURGICAL HISTORY OF age 28 1 ovary removed, 1 tube reconstructed from ectopic PAST SURGICAL HISTORY OF age 20 tendon repairs to wrists after going through glass door PAST SURGICAL HISTORY OF removal of uterine polyp TOTAL KNEE REPLACEMENT Right 01/02/2023 Current Outpatient Medications Medication Sig MEDICATION, NON-DATABASE Medical Marijuana Cream metoprolol succinate ER (TOPROL XL) 25 mg 24 hr tablet Take 1 tablet by mouth once daily. bpkerwh-kksv-ddqnh-oreg-capryl 100 mg-150 mg- 50 mg-150 mg cap Take 1 tablet by mouth twice daily. [employer] EPA-DHA 2400 (High Concentrate EPA/DHA liquid) (Learn[employer]) Take one teaspoon (5 ml) 1 times daily with food (Patient taking differently: Take 5 mL by mouth once daily. Take one teaspoon (5 ml) 1 times daily with food) MAGNESIUM ORAL Take 135 Units by mouth once daily. Takes 4 capsules daily ascorbic acid, vitamin C, (VITAMIN C) 500 mg tablet Take 2,000 mg by mouth once daily. B-Complex Plus (Pure Encapsulations) - 1qD stress/energy/hormones/detox/weigh t loss Take 1 capsule by mouth once daily. CoQ10, Liposomal Ubiquinol, 200 mg cap Take 1 capsule by mouth daily with food. (Patient taking differently: Take 2 capsules by mouth daily with food.) cholecalciferol (VITAMIN D3) 1,000 unit tab tablet Take 1,000 Units by mouth once daily. No current facility-administered medications for this visit. ALLERGIES Allergen Reactions Atorvastatin Calcium Myalgia Caused severe myalgias to bilateral thighs and across back Codeine Mental Status Change Can hear whats going on around her but she can't wake up Crestor [Rosuvastat* Myalgia 20 mg caused severe myalgias to upper thighs and across back Social History Tobacco Use Smoking status: Former Current packs/day: 1.00 Average packs/day: 1 pack/day for 10.0 years (10.0 ttl pk-yrs) Types: Cigarettes Smokeless tobacco: Never Vaping Use Vaping status: Never Used Substance Use Topics Alcohol use: Yes Comment: socially Drug use: No ROS: See HPI PE: BP 142/90 Pulse 64 Temp (Src) 97.8 (Left Tympanic) Resp 20 Ht 5' 4.567 (1.64m) Wt 220 lb (99.8kg) BMI 37.10 kg/(m^2). Gen: A&OX3, NAD, non-toxic appearing HEENT: PERRLA, EOMs intact b/l, nares without drainage, pharynx without erythema, exudate, lesions, or drainage. Uvula midline. Neck: No LAD, no thyromegaly, no meningismus. CV: RRR, no murmur Lungs: CTA b/l, no wheezing Skin: No rashes, l+ actinic keratosis on tip of distal nose and left inferior cheek (2 total) Arthritis and joint pain changes of left knee without effusion present No edema legs, No CVA pain Normal peripheral pulses ASSESSMENT/PLAN: 1. Medicare annual wellness visit, subsequent - ICD9: V70.0, ICD10: Z00.00 (primary diagnosis) - Counseled on healthy diet and regular exercise - Discussed need and benefit for weight loss. BMI 37.10 kg/(m^2) 2. Dysuria - ICD9: 788.1, ICD10: R30.0 recurrent - Send urine for culture - Patient education for prevention given - URINALYSIS, WITH MICROSCOPIC - UA DIP, URINE (POC) - URINE CULTURE 3. Hyperlipidemia, unspecified hyperlipidemia type - ICD9: 272.4, ICD10: E78.5 - Control undetermined, due for labs - Counseled on healthy diet and regular exercise - Discussed need for and benefit of weight loss. BMI 37.10 kg/(m^2) - HEMOGLOBIN A1C - LIPOPROTEIN (A) 4. 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 Myalgia - ICD9: 729.1, ICD10: M79.10 Recheck labs as ordered Consider PHYSICAL THERAPY to help with knee pain as well. - IRON AND TIBC - VITAMIN B12 - MAGNESIUM 6. Vitamin D deficiency - ICD9: 268.9, ICD10: E55.9 Continue supplement - VITAMIN D 25 HYDROXY 7. Hyperglycemia - ICD9: 790.29, ICD10: R73.9 Recheck labs Need for weight loss - HEMOGLOBIN A1C 8. Actinic keratosis - ICD9: 702.0, ICD10: L57.0 Treated x 2 with cryotherapy, tolerated well, no complications Silvestre Chance DO Return if no improvement. Follow up with Silvestre Chance DO. To ER if develops chest pain, shortness of breath. Discussed risks, benefits, alternatives, and potential side effects of medications. Patient/Guardian expressed understanding and agreed with the plan. See patient instructions. Silvestre Chance DO [address] [place] [address] Images from the original note were not included. Moira Suh is a 73 year old female here for a Medicare wellness visit. Medicare Health Risk Assessment General Health Very good Exercise: Minutes/Day 20 min Exercise: Days/Week 5 days Alcohol: Daily Use 2-4 times a month Alcohol: Drinks/Day 1 or 2 Alcohol: 6 or more drinks Never Feel off balance No Concerns: Teeth/Dentures No Concerns: Sexual function No Troubled by feelings None of the above Frequency: Eating healthy diet Nearly every day ADLs requiring help None of the above Safety precautions in home/vehicle No Smoke, vape, chews tobacco No Difficulty hearing No Difficulty seeing No Current Providers Specialists: I have reviewed specialist-related care of the patient in the medical record. Medical/Family history review Reviewed and updated problem list, medical/surgical/family/social history, medications, and allergies. Opioid use review Opioid Medications (last 90 days) No data to display Anxiety/Depression screening ELLI-7 Score: 0. Recommendation: no further intervention at this time Cognitive screening Mini Cog Score: 5 Cognitive screening reviewed and No further action needed (score 3-5). Functional Observation Was the patient's Timed Up & Go test unsteady or >= 12 seconds? No Advance Care Planning Surrogate decision maker and/or advance care plan documented Measurements BP 142/90 Pulse 64 Temp 36.6 C (97.8 F) (Left Tympanic) Resp 20 Ht 164 cm (5' 4.57) Wt 99.8 kg (220 lb) BMI 37.10 kg/m Vision Screening: Follows with optometry/ophthalmology Assessment/Plan Medicare annual wellness visit, subsequent (Z00.00) - Counseled on healthy diet and regular exercise - Fall avoidance information provided - Personalized prevention plan provided - Discussed need for and benefit of weight loss. BMI 37.10 kg/(m^2) Silvestre Chance DO documented in this encounter [facility] 01-02-2024 Note HNO ID: [id number] Author: SILVESTRE CHANCE DO Service: ? Author Type: Physician Type: Progress Notes Filed: 01/02/2024 21:56 Note Text: Moira Suh is a 73 year old female here for a Medicare wellness visit. Medicare Health Risk Assessment General Health Very good Exercise: Minutes/Day 20 min Exercise: Days/Week 5 days Alcohol: Daily Use 2-4 times a month Alcohol: Drinks/Day 1 or 2 Alcohol: 6 or more drinks Never Feel off balance No Concerns: Teeth/Dentures No Concerns: Sexual function No Troubled by feelings None of the above Frequency: Eating healthy diet Nearly every day ADLs requiring help None of the above Safety precautions in home/vehicle No Smoke, vape, chews tobacco No Difficulty hearing No Difficulty seeing No Current Providers Specialists: I have reviewed specialist-related care of the patient in the medical record. Medical/Family history review Reviewed and updated problem list, medical/surgical/family/social history, medications, and allergies. Opioid use review Opioid Medications (last 90 days) No data to display Anxiety/Depression screening ELLI-7 Score: 0. Recommendation: no further intervention at this time Cognitive screening Mini Cog Score: 5 Cognitive screening reviewed and No further action needed (score 3-5). Functional Observation Was the patient's Timed Up AND Go test unsteady or >= 12 seconds? No Advance Care Planning Surrogate decision maker and/or advance care plan documented Measurements BP 142/90 Pulse 64 Temp 36.6 ?C (97.8 ?F) (Left Tympanic) Resp 20 Ht 164 cm (5' 4.57) Wt 99.8 kg (220 lb) BMI 37.10 kg/m? Vision Screening: Follows with optometry/ophthalmology Assessment/Plan Medicare annual wellness visit, subsequent (Z00.00) - Counseled on healthy diet and regular exercise - Fall avoidance information provided - Personalized prevention plan provided - Discussed need for and benefit of weight loss. BMI 37.10 kg/(m2) Silvestre Chance DO [facility] 12-26-2023 Note HNO ID: [id number] Author: NELA FERREIRA MD Service: ? Author Type: Physician Type: Progress Notes Filed: 01/23/2024 07:28 Note Text: DR. FERREIRA- POST-OP KNEE Post-Op F/U Office Visit Moira Suh presents today for a 1 year status post Right TKA. Post-operative recovery was uneventful. Patient's rating of condition: unchanged Comments: Patient is unhappy with her knee. She feels that some of her function such as ascending/descending steps is still difficult. She reports that the clicking in the back of her knee is reported at the time of previous visits is no longer present Does the Pt. still experience pain? PAIN EVALUATION 12/25/2023 2350 12/26/2023 1526 Pain Level: -- 0 Pain Location: Knee-Left Knee-Right Description: Aching;Sharp -- Functional difficulties: Stair climbing Physical Therapy: Completed course of therapy Pain Medication: None Ambulating without assistance. Medications and Allergies reviewed and verified. EXAM: GEN: AANDO x3, NAD SKIN:Appropriate postop appearance Incision intact Incision well healed RightKnee: ROM: Flexion/Extension:0 degrees to 120 degrees Pain with ROM:No Mal-alignment: No Effusion: None Mild tenderness in the popliteal fossa Stability:Anterior/Posterior- Yes, stable and Varus/Valgus- Yes, stable Quad strength: normal HIP: range of motion no loss ROM NV: intact and Vignesh's negative IMAGING: Xrays: Implants are well aligned. Implants are well fixed. There is no evidence of loosening. There is evidence of osteo-integration. There is no evidence of osteolysis. Patella is well positioned. IMPRESSION/PLAN: 73 year old female s/p Left TKA Knee appears to be stable however she still has some discomfort particularly with ascending/descending steps. I recommend that we refer her back to physical therapy for quadricep strengthening and attempt to improve her function. Plan: 1.Refer to physical therapy 2. Continue total knee precautions 3. Follow-up for repeat evaluation of knee after therapy Nela Ferreira MD Electronic Signature [facility] 12-26-2023 History of Present illness Narrative Images from the original note were not included. DR. FERREIRA- POST-OP KNEE Post-Op F/U Office Visit Moira Suh presents today for a 1 year status post Right TKA. Post-operative recovery was uneventful. Patient's rating of condition: unchanged Comments: Patient is unhappy with her knee. She feels that some of her function such as ascending/descending steps is still difficult. She reports that the clicking in the back of her knee is reported at the time of previous visits is no longer present Does the Pt. still experience pain? PAIN EVALUATION 12/25/2023 2350 12/26/2023 1526 Pain Level: -- 0 Pain Location: Knee-Left Knee-Right Description: Aching;Sharp -- Functional difficulties: Stair climbing Physical Therapy: Completed course of therapy Pain Medication: None Ambulating without assistance. Medications and Allergies reviewed and verified. EXAM: GEN: A&O x3, NAD SKIN:Appropriate postop appearance Incision intact Incision well healed RightKnee: ROM: Flexion/Extension:0 degrees to 120 degrees Pain with ROM:No Mal-alignment: No Effusion: None Mild tenderness in the popliteal fossa Stability:Anterior/Posterior- Yes, stable and Varus/Valgus- Yes, stable Quad strength: normal HIP: range of motion no loss ROM NV: intact and Vignesh's negative IMAGING: Xrays: Implants are well aligned. Implants are well fixed. There is no evidence of loosening. There is evidence of osteo-integration. There is no evidence of osteolysis. Patella is well positioned. IMPRESSION/PLAN: 73 year old female s/p Left TKA Knee appears to be stable however she still has some discomfort particularly with ascending/descending steps. I recommend that we refer her back to physical therapy for quadricep strengthening and attempt to improve her function. Plan: 1.Refer to physical therapy 2. Continue total knee precautions 3. Follow-up for repeat evaluation of knee after therapy Nela Ferreira MD Electronic Signature documented in this encounter [facility] 12-20-2023 Telephone encounter Note Spoke with patient. Given message from provider's office. Patient verbalizes understanding. Kaveh Bo RN [facility] 12-20-2023 Miscellaneous Notes Spoke with patient. Given message from provider's office. Patient verbalizes understanding. Kaveh Bo RN Sent pt MC message Latonia Romano MA She'll need to go to express care or schedule an appt. Kianna Marques APRN.SUMEET Pt states she thinks she has a UTI, reports increased urination & burning with urination X several wks. Pt requesting a urine lab test. Appt was offered & pt was told she could go to for same, pt declined stating she just wants to have a lab test. Please advise. Flor Plunkett LPN documented in this encounter [facility] 12-20-2023 Telephone encounter Note Sent pt MC message Latonia Romano MA [facility] 12-19-2023 Telephone encounter Note She'll need to go to express care or schedule an appt. Kianna Jerald, SUPERVISOR SIGN SHOP.OVEN [employer]AKER [facility] Work Phone: 12-19-2023 Telephone encounter Note Pt states she thinks she has a UTI, reports increased urination & burning with urination X several wks. Pt requesting a urine lab test. Appt was offered & pt was told she could go to for same, pt declined stating she just wants to have a lab test. Please advise. Flor Plunkett LPN [facility] 11-15-2023 Telephone encounter Note Spoke with Patient to schedule a 6 Mo F/u per Database , patient refused stated she did not want to do 6 mo and requested 12 mo , patient is scheduled for 07/2024 Axel Arshad November 15, 2023 12:07 PM [facility] 11-15-2023 Miscellaneous Notes Spoke with Patient to schedule a 6 Mo F/u per Database , patient refused stated she did not want to do 6 mo and requested 12 mo , patient is scheduled for 07/2024 Axel Arshad November 15, 2023 12:07 PM documented in this encounter [facility] 11-13-2023 Instructions Melinda Tellez DO - 11/13/2023 3:07 PM EDT Please note the following after treatment with Osteopathic Manipulative Treatment: 1. General aching can occur after manipulative treatment for 1-3 days. You may feel nauseous or unwell for a few hours after the treatment, please call if these symptoms persist for more than 24 hours. 2. Please drink an additional 8-16 ounces of water today. This will help reduce the chance of side effects. 3. Please do not engage in heavy lifting or other strenuous activity for 2 days. 4. Please call if you experience new numbness, weakness, or strong or sharp pain. This is not expected after manipulative treatment and should be evaluated. 5. Please minimize sugar, alcohol, and caffeine for the next 24 hours. Please eat a low-protein meal tonight to reduce nitrogen load on your kidneys. - you can time the myofascial work in between your OMT visits - agus sanz was ordered this visit If you have any further questions or would like clarification on the above instructions, please call our office at [phone]. A message will be left with our physician staff and we will return your phone call as soon as possible. Please leave a current phone number to reach you back. If you need to cancel an appointment, it is important to make our office aware 24-48 hours before cancelling, for us to reschedule that appointment for you. You can call our appointment line at [phone] and press option number 1 to leave a message. Please leave a current phone number to reach you back. Thank you for trusting [facility] [place] with your health and the health of your family. documented in this encounter [facility] 11-13-2023 History of Present illness Narrative Associated Order(s): Osteopathic manipulative treatment (OMT) Post-Procedure Diagnose(s): Somatic dysfunction of lower extremities; Somatic dysfunction of thoracic region Name: Moira Suh Date of : 1950 Date of Exam: November 13, 2023 CC: This is Moira Suh, a 73 year old female who presents with Patient presents with: Right Knee Pain History of Present Illness: Last seen for OMT on 09/28/[address] Lowery for right knee pain, s/p knee replacement Nov 2022. Clicking behind knee improved after last visit. Can extend knee more now. [place] like omt provided good relief. Still feels a pulling like rubber bands in the back of the right knee. Pivoting to the right gives shooting pain to the right side of the knee. Can't go upstairs or step up onto an elevated surface--problem with the weight bearing phase. Feels very unbalanced. Feels worse than before the knee replacement in regards to function. Doing physical therapy exercises at home. Recumbent bike hurts left knee. Both knees always swollen. Not red or warm. Using fsm at home Left knee is bad too. Trauma History: No new falls or injuries. Past Medical History: PAST MEDICAL HISTORY No date: Atrial fibrillation (HCC) No date: Coronary artery disease No date: Holter monitor, abnormal Comment: extra beats No date: Hypercholesteremia No date: Hyperlipidemia No date: Hypertension 07/19/2017: Insulin resistance No date: Leiomyoma of uterus, unspecified No date: Low HDL (under 40) Past Surgical History: PAST SURGICAL HISTORY 2016: CORONARY ARTERY BYPASS GRAFT HX Comment: 3 vessel 11/27/2012: FNA WITH IMAGING Comment: U/S FNA bilateral thyroid age 28: PAST SURGICAL HISTORY OF Comment: 1 ovary removed, 1 tube reconstructed from ectopic age 20: PAST SURGICAL HISTORY OF Comment: tendon repairs to wrists after going through glass door No date: PAST SURGICAL HISTORY OF Comment: removal of uterine polyp 01/02/2023: TOTAL KNEE REPLACEMENT; Right Family History: FAMILY HISTORY Problem Relation Age of Onset Prostate Cancer Father Thyroid Mother Hypertension Mother Thyroid Sister Social History: Moira Suh reports that she has quit smoking. Her smoking use included cigarettes. She has a 10 pack-year smoking history. She has never used smokeless tobacco. She reports current alcohol use. She reports that she does not use drugs. Employer And Job Title: None on file Years Of Education Completed: Not specified Marital Status: Medications/Supplements: Reviewed Allergies: Reviewed Review of Systems: Review of Systems sheet reviewed and discussed with patient. See HPI above Physical Exam: VITALS: BP 173/90 Pulse 76 Temp (Src) 97.1 (Temporal) Wt 222 lb 7.1 oz (100.9kg) Body mass index is 36.44 kg/m (pended). Constitutional: awake and alert, in no acute distress Cardio: no peripheral edema Pulmonary: normal effort, in no acute respiratory distress Abdomen: soft, nondistended Neurologic: at neurologic baseline Psychiatric: normal mood and affect, cooperative, normal speech MSK: externally rotated right hip, mild knee swelling bilaterally without overlying erythema or warmth, full flex/ext of right knee without clicking, left knee flexed when resting but able to straighten Assessment and Plan: Based on the history and physical exam findings, Osteopathic manipulative treatment was indicated, verbal consent was obtained and the following procedures were performed: Encounter Diagnosis ICD-10-CM 1. Chronic pain of right knee M25.561 PARKING FOR HANDICAPPED G89.29 2. S/P total knee arthroplasty, right Z96.651 PARKING FOR HANDICAPPED 3. Chronic pain of left knee M25.562 PARKING FOR HANDICAPPED G89.29 4. Somatic dysfunction of lower extremities M99.06 5. Somatic dysfunction of thoracic region M99.02 73 yo F with chronic right knee pain s/p knee replacement 11 months ago, and chronic left knee pain. She has made improvements each visit in her function and pain and has had good relief from OMT thus far. Following the visit she states the pain in her left knee is gone, less stiff. Right knee pain also improved/gone. - continue physical therapy exercises at home - handicap freidadesire ordered today due to unsteadiness and knee giving out at times - discussed seeing someone who does myofascial work; this would be a nice complement between visits to give relief - continue using fsm at home OMT was performed today to improve function and reduce symptoms with good effect. Return in about 4 weeks (around 12/11/2023). Time Spent (min): 40 >50% of time spent on the date of service was dedicated to preparing to see the patient, [id number] patient care, completing clinical documentation, obtaining and/or reviewing separately obtained history, performing a medically appropriate examination, and counseling and educating the patient/family/caregiver. Patient seen and evaluated with Dr. Ferrer; please see attestation. Melinda Tellez DO PGY-IV, ONMM 12:04 PM 11/13/2023 Procedure: Osteopathic Manipulative Treatment Osteopathic manipulative treatment (OMT) Time/Date:11/13/2023 3:18 PM Informed Consent Consent Obtained: Verbal [place] Protocol A moment to CARE was completed. SIGN IN Special Equipment: N/A Patient/Surrogate Stated/Verified: Patient name and Date of TIME OUT Consent Obtained:Verbal Body Regions: Thoracic and Lower Extremities Thoracic Technique: Thoracic inlet rotated right treated with myofascial release Lower Extremities Technique:Bilateral naviculars dropped treated with balanced ligamentous tension Talus posterior bilaterally treated with balanced ligamentous tension Bilateral fibular head posterior treated with muscle energy Right tib-fib interosseous membrane restriction treated with myofascial release Right patella lateral and inferior treated with balanced ligamentous tension Number of Body Regions: 1 -2 Disposition: Osteopathic manipulation tolerated well, reports subjective and objective improvement, improvement in range of motion and mechanics, instructed to increase hydration for the next 24 hours and instructed to follow up if symptoms worsen or fail to improve On the date above, I interviewed and examined the patient. I was present for the jones component of the exam and treatment and I fully participated in Moira Suh's care. I discussed the management with the resident, Dr. Melinda Tellez DO. I reviewed the note above and I agree with and confirm those findings as well as the plan of care. I reviewed the labs and the recent notes in EPIC. I have edited the note based on my personal assessment of the patient. My edits are represented by deletions and italic additions. I agree with the work-up as detailed in the resident's note above. Rachel Cotton D.O.-ONRUDDY, C- Associate Pump Room Operator, Osteopathic Neuromusculoskeletal Medicine Residency [facility] documented in this encounter [facility] 11-13-2023 Note HNO ID: [id number] Author: DARLINE FERRER DO Service: ? Author Type: Physician Type: Progress Notes Filed: 11/16/2023 13:10 Note Text: Name: Moira Suh Date of : 1950 Date of Exam: November 13, 2023 CC: This is Moira Suh, a 73 year old female who presents with Patient presents with: Right Knee Pain History of Present Illness: Last seen for OMT on 09/28/[address] Lowery for right knee pain, s/p knee replacement Nov 2022. Clicking behind knee improved after last visit. Can extend knee more now. [place] like omt provided good relief. Still feels a pulling like rubber bands in the back of the right knee. Pivoting to the right gives shooting pain to the right side of the knee. Can't go upstairs or step up onto an elevated surface--problem with the weight bearing phase. Feels very unbalanced. Feels worse than before the knee replacement in regards to function. Doing physical therapy exercises at home. Recumbent bike hurts left knee. Both knees always swollen. Not red or warm. Using fsm at home Left knee is bad too. Trauma History: No new falls or injuries. Past Medical History: PAST MEDICAL HISTORY No date: Atrial fibrillation (HCC) No date: Coronary artery disease No date: Holter monitor, abnormal Comment: extra beats No date: Hypercholesteremia No date: Hyperlipidemia No date: Hypertension 07/19/2017: Insulin resistance No date: Leiomyoma of uterus, unspecified No date: Low HDL (under 40) Past Surgical History: PAST SURGICAL HISTORY 2016: CORONARY ARTERY BYPASS GRAFT HX Comment: 3 vessel 11/27/2012: FNA WITH IMAGING Comment: U/S FNA bilateral thyroid age 28: PAST SURGICAL HISTORY OF Comment: 1 ovary removed, 1 tube reconstructed from ectopic age 20: PAST SURGICAL HISTORY OF Comment: tendon repairs to wrists after going through glass door No date: PAST SURGICAL HISTORY OF Comment: removal of uterine polyp 01/02/2023: TOTAL KNEE REPLACEMENT; Right Family History: FAMILY HISTORY Problem Relation Age of Onset Prostate Cancer Father Thyroid Mother Hypertension Mother Thyroid Sister Social History: Moira Suh reports that she has quit smoking. Her smoking use included cigarettes. She has a 10 pack-year smoking history. She has never used smokeless tobacco. She reports current alcohol use. She reports that she does not use drugs. Employer And Job Title: None on file Years Of Education Completed: Not specified Marital Status: Medications/Supplements: Reviewed Allergies: Reviewed Review of Systems: Review of Systems sheet reviewed and discussed with patient. See HPI above Physical Exam: VITALS: BP 173/90 Pulse 76 Temp (Src) 97.1 (Temporal) Wt 222 lb 7.1 oz (100.9kg) Body mass index is 36.44 kg/m? (pended). Constitutional: awake and alert, in no acute distress Cardio: no peripheral edema Pulmonary: normal effort, in no acute respiratory distress Abdomen: soft, nondistended Neurologic: at neurologic baseline Psychiatric: normal mood and affect, cooperative, normal speech MSK: externally rotated right hip, mild knee swelling bilaterally without overlying erythema or warmth, full flex/ext of right knee without clicking, left knee flexed when resting but able to straighten Assessment and Plan: Based on the history and physical exam findings, Osteopathic manipulative treatment was indicated, verbal consent was obtained and the following procedures were performed: Encounter Diagnosis ICD-10-CM 1. Chronic pain of right knee M25.561 PARKING FOR HANDICAPPED G89.29 2. S/P total knee arthroplasty, right Z96.651 PARKING FOR HANDICAPPED 3. Chronic pain of left knee M25.562 PARKING FOR HANDICAPPED G89.29 4. Somatic dysfunction of lower extremities M99.06 5. Somatic dysfunction of thoracic region M99.02 73 yo F with chronic right knee pain s/p knee replacement 11 months ago, and chronic left knee pain. She has made improvements each visit in her function and pain and has had good relief from OMT thus far. Following the visit she states the pain in her left knee is gone, less stiff. Right knee pain also improved/gone. - continue physical therapy exercises at home - handicap placard ordered today due to unsteadiness and knee giving out at times - discussed seeing someone who does myofascial work; this would be a nice complement between visits to give relief - continue using fsm at home OMT was performed today to improve function and reduce symptoms with good effect. Return in about 4 weeks (around 12/11/2023). Time Spent (min): 40 >50% of time spent on the date of service was dedicated to preparing to see the patient, [id number] patient care, completing clinical documentation, obtaining and/or reviewing separately obtained history, performing a medically appropriate examination, and counseling and educating the patient/family/care (more content not included)... [facility] 10-26-2023 Note HNO ID: [id number] Author: NELA FERREIRA MD Service: ? Author Type: Physician Type: Progress Notes Filed: 11/23/2023 16:41 Note Text: DR. FERREIRA- POST-OP KNEE Post-Op F/U Office Visit Moira Suh presents today for a almost 10 months status post Right TKA. Post-operative recovery was uneventful. Patient's rating of condition: unchanged Comments: Patient's primary complaint is that she still feels weak Does the Pt. still experience pain? PAIN EVALUATION 10/26/2023 1357 Pain Level: 4 Pain Location: Knee-Right Description: Sore;Stiffness Duration Amount of Time: -- ongoing Frequency: Continuous Intervention/Comfort measure: Relaxation;Positioning Functional difficulties: Stair climbing Physical Therapy: Completed course of therapy Pain Medication: Non-narcotic Ambulating without assistance. Medications and Allergies reviewed and verified. EXAM: GEN: AANDO x3, NAD SKIN:Appropriate postop appearance Incision intact Incision well healed RightKnee: ROM: Flexion/Extension:0 degrees to 115 degrees Pain with ROM:No Mal-alignment: No Effusion: None Tender to palpation of the medial joint line(s). Stability:Anterior/Posterior- Yes, stable and Varus/Valgus- Yes, stable Quad strength: normal HIP: range of motion no loss ROM NV: intact and Vignesh's negative IMAGING: Xrays: No x-rays today IMPRESSION/PLAN: 73 year old female s/p Right TKA Slow post-operative recovery. Patient is not manifesting any objective signs of sepsis or loosening Plan: 1. Continue independent range of motion/strengthening exercises 2. Continue total knee precautions including the use of antibiotics for dental procedures 3. Follow-up 2 months for repeat clinical possible radiographic evaluation Nela Ferreira MD Electronic Signature [facility] 10-26-2023 History of Present illness Narrative Images from the original note were not included. DR. FERREIRA- POST-OP KNEE Post-Op F/U Office Visit Moira Suh presents today for a almost 10 months status post Right TKA. Post-operative recovery was uneventful. Patient's rating of condition: unchanged Comments: Patient's primary complaint is that she still feels weak Does the Pt. still experience pain? PAIN EVALUATION 10/26/2023 1357 Pain Level: 4 Pain Location: Knee-Right Description: Sore;Stiffness Duration Amount of Time: -- ongoing Frequency: Continuous Intervention/Comfort measure: Relaxation;Positioning Functional difficulties: Stair climbing Physical Therapy: Completed course of therapy Pain Medication: Non-narcotic Ambulating without assistance. Medications and Allergies reviewed and verified. EXAM: GEN: A&O x3, NAD SKIN:Appropriate postop appearance Incision intact Incision well healed RightKnee: ROM: Flexion/Extension:0 degrees to 115 degrees Pain with ROM:No Mal-alignment: No Effusion: None Tender to palpation of the medial joint line(s). Stability:Anterior/Posterior- Yes, stable and Varus/Valgus- Yes, stable Quad strength: normal HIP: range of motion no loss ROM NV: intact and Vignesh's negative IMAGING: Xrays: No x-rays today IMPRESSION/PLAN: 73 year old female s/p Right TKA Slow post-operative recovery. Patient is not manifesting any objective signs of sepsis or loosening Plan: 1. Continue independent range of motion/strengthening exercises 2. Continue total knee precautions including the use of antibiotics for dental procedures 3. Follow-up 2 months for repeat clinical possible radiographic evaluation Nela Ferreira MD Electronic Signature documented in this encounter [facility] 10-18-2023 History of Present illness Narrative Program_ID:[id number] Access Code: [email or web address] URL: [email or web address] Date: 10-18-2023 Prepared By: Rikki Tomas Program Notes 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 - Day 1 OP PT. Exercises - Supine Active Straight Leg Raise - 1 x daily - x weekly - 2 sets - 10 reps - Sidelying Hip Abduction - 2 x daily - 7 x weekly - 2 sets - 10 reps - Sit to Stand - 2 x daily - 7 x weekly - 2 sets - 8-12 reps - Seated Long Arc Quad - 2 x daily - 7 x weekly - 3 sets - 10 reps - Supine Quad Set - 2 x daily - 7 x weekly - 3 sets - 10 reps - Seated March - 2 x daily - 7 x weekly - 3 sets - 10 reps Episode Visit Count: 2 Therapist That Will Accept/Oversee The Plan Of Care: Thu Scott, PT, DPT Start of Care Date: 10/09/23 Onset Date: 01/02/23 Plan of Care Certification Date: 10/09/23 Next Certification Due Date: 12/08/23 Patient Identified by Name and Date of : Yes REHABILITATION AND SPORTS THERAPY PHYSICAL THERAPY TREATMENT NOTE ASSESSMENT: Moira Suh tolerated the session with fatigue. She demonstrated difficulty with left knee stability challenges and tolerated right lower extremity strengthening. The patient will continue to benefit from ongoing skilled physical therapy to progress toward set goals. PLAN FOR NEXT VISIT: progress right lower extremity strength. SUBJECTIVE: Just feels like she can't move. Its worse after sitting for long periods of time and performing sit to stands. Continues to comply with home exercises. Pain: Pain Pain Level: 8 Pain Location: Knee - Right Description: Dull Frequency: With movement, Walking Post Treatment Pain Post Treatment Pain Level: Better Post Treatment Pain Location: Knee - Right OBJECTIVE MEASURES WITH LEVEL OF FUNCTION: Posture/alignment: forward head, rounded shoulders TREATMENT: Therapeutic Exercise: 1: nu step seat level 9, arm level 10 , 5 mins for improved strength and activity tolerance. pt maintained between 65-70 spm 2: r knee flex stretch 2x 20 sec hold 3: supine hamstring stretch 2x 20 sec hold green strap 4: standing bilateral hip abd 2x 10 yellow tband, ue support 5: standing bilateral hip flex 2x10 yellow tband, ue support 6: sit<> stands 2x10 with 5 lbs 7: standing toe taps 6 inch step 2x10 with ue support 8: eccentric R/L step downs 4 in step 2x10 with ue support, forward and laterally 9: seated R. knee extension 2x10 with 4 lbs 10: seated R hip flex 2x 10 4 lbs Skilled Intervention: Patient was educated in proper exercise technique and purpose for exercises. Billing Therapeutic Exercise Treatment Minutes: 41 Skilled Treatment Time Minutes (timed and untimed codes): 41 Total Session Time (minutes): 41 Session Start Time : 1547 Session Stop Time : 1628 Jin Santiago PTA documented in this encounter [facility] 10-18-2023 Note HNO ID: [id number] Author: JIN SANTIAGO PTA Service: ? Author Type: Aviation Consultant Type: Progress Notes Filed: 10/18/2023 16:29 Note Text: Episode Visit Count: 2 Therapist That Will Accept/Oversee The Plan Of Care: Thu Scott, PT, DPT Start of Care Date: 10/09/23 Onset Date: 01/02/23 Plan of Care Certification Date: 10/09/23 Next Certification Due Date: 12/08/23 Patient Identified by Name and Date of : Yes REHABILITATION AND SPORTS THERAPY PHYSICAL THERAPY TREATMENT NOTE ASSESSMENT: Moira Suh tolerated the session with fatigue. She demonstrated difficulty with left knee stability challenges and tolerated right lower extremity strengthening. The patient will continue to benefit from ongoing skilled physical therapy to progress toward set goals. PLAN FOR NEXT VISIT: progress right lower extremity strength. SUBJECTIVE: Just feels like she can't move. Its worse after sitting for long periods of time and performing sit to stands. Continues to comply with home exercises. Pain: Pain Pain Level: 8 Pain Location: Knee - Right Description: Dull Frequency: With movement, Walking Post Treatment Pain Post Treatment Pain Level: Better Post Treatment Pain Location: Knee - Right OBJECTIVE MEASURES WITH LEVEL OF FUNCTION: Posture/alignment: forward head, rounded shoulders TREATMENT: Therapeutic Exercise: 1: nu step seat level 9, arm level 10 , 5 mins for improved strength and activity tolerance. pt maintained between 65-70 spm 2: r knee flex stretch 2x 20 sec hold 3: supine hamstring stretch 2x 20 sec hold green strap 4: standing bilateral hip abd 2x 10 yellow tband, ue support 5: standing bilateral hip flex 2x10 yellow tband, ue support 6: sit<> stands 2x10 with 5 lbs 7: standing toe taps 6 inch step 2x10 with ue support 8: eccentric R/L step downs 4 in step 2x10 with ue support, forward and laterally 9: seated R. knee extension 2x10 with 4 lbs 10: seated R hip flex 2x 10 4 lbs Skilled Intervention: Patient was educated in proper exercise technique and purpose for exercises. Billing Therapeutic Exercise Treatment Minutes: 41 Skilled Treatment Time Minutes (timed and untimed codes): 41 Total Session Time (minutes): 41 Session Start Time : 1547 Session Stop Time : 1628 Jin Santiago [facility] 10-09-2023 History of Present illness Narrative Program_ID:[id number] Access Code: [email or web address] URL: [email or web address] Date: 10-09-2023 Prepared By: Rikki Tomas Program Notes 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 - Day 1 OP PT. Exercises - Supine Active Straight Leg Raise - 1 x daily - x weekly - 2 sets - 10 reps - Sidelying Hip Abduction - 2 x daily - 7 x weekly - 2 sets - 10 reps - Sit to Stand - 2 x daily - 7 x weekly - 2 sets - 8-12 reps Images from the original note were not included. Episode Visit Count: 1 Therapist That Will Accept/Oversee The Plan Of Care: Thu Scott PT, DPT Start of Care Date: 10/09/23 Onset Date: 01/02/23 Plan of Care Certification Date: 10/09/23 Next Certification Due Date: 12/08/23 Patient Identified by Name and Date of : Yes REHABILITATION AND SPORTS THERAPY PHYSICAL THERAPY EVALUATION PLAN OF CARE: Assessment: Moira Suh presents with chief complaint of weakness in the R leg that interferes with rising from a chair, standing, walking, stair negotiation . She presents with impairments in gait, range of motion, strength, and tissue tenderness. PROMIS (Patient-Reported Outcomes Measurement Information System) scores were reviewed and identified as a rehabilitation concern. Prognosis for therapy is Good due to: current objective clinical presentation, positive past response to therapy, Prognosis may be limited due to chronic nature of impairments . She will benefit from skilled therapy services to meet the goals established for this plan of care as noted below. Goals for Episode of Care: created on 10/09/23 through 12/08/23 [place] in home exercise program. Patient will decrease pain rating by 2 points to meet minimal clinical important difference for numeric pain rating scale. Patient will increase active ROM of R knee to 0-120 to allow pt to to improve gait mechanics / gait pattern . Patient will demonstrate increase in BLE strength to 5/5 during manual muscle testing in order to improve function for prior functional tasks. Patient will Improve Timed Up and Go to <9.5 seconds to demonstrate decreased risk of falling. Patient will improve 30 second sit to stand to 15 reps without UE support to demonstrate improvement in functional lower extremity strength. Normal gait. Reciprocal stair negotiation with rail. Patient Goals: Improve strength and mobility, be able to go up stairs easier Planned Interventions, Frequency, and Duration: Current Frequency: 1x/week Duration: 8 weeks Total Number of Visits Planned: 8 Planned Treatment Interventions: Therapeutic exercise (02829), Neuromuscular re-education (81803), Therapeutic activities (18040), Manual therapy (21434), Self-detention management (59151), Gait Training (80336), Patient/Family/Caregiver Education, Body Mechanics Training PLAN FOR NEXT VISIT: hamstring stretching, TKE, step taps to tall step, step ups to small step, continue hip strength Patient demonstrates good understanding of plan of care and treatment. The above goals and plan of care were discussed and agreed upon by patient/family. SUBJECTIVE: R TKA 01/02/23. Discharged home with home PT. [facility]. Last measurements of the knee at that time were 0-108 degrees. States it was never right after the replacement, but feels like things went down hill fast after stopping PT in March. States she still has swelling and always did. Still uses the ice machine. Has been using a microcurrent machine. Has been seeing osteopathic manipulative medicine. States she used to have significant ER of the R hip, after seeing this new person through [facility] she no longer has this problem. Was also not able to get up and down from the chair on her own until she went to this doctor. Also had some fascial release from a friend. Alot of her pain is on the lateral side/behind the knee after the surgery along with clicking. Cannot go up a step with the RLE. Cannot turn on the R leg. WAs supposed to get the L knee replaced this spring but because the R knee has not fully recovered she held off. Has a recumbant bike at home- does two 10 minute sessions on it. Pain is not constant. REcently got braces for both of her knees- usually only wears on her L knee. Patient Goals: Improve strength and mobility, be able to go up stairs easier Functional Limitations: rising from a chair, standing, walking, stair negotiation Prior Level of Function: Independent without limitations Relevant History Employment: Retired Intake Information: Prescription present Previous Treatment: NSAIDs , Ice Falls Interview: No positive findings with falls interview Aquatic Screen: Yes Pain: Pain Pain Level: 0 PROMIS Scales 10/08/2023 09/24/2023 03/26/2023 Higher is Better Phys Func - Score 31 (moderate dysfunction) 40 (mild dysfunction) Phys Func - Percentile 3 16 Self-Eff Symptom - Score 38 (Low) 48 (Average) Self-Eff Symptom - Percentile 12 42 T-scores: mean of general population = 50. 5 points is clinically meaningfully difference Percentiles provide an indication of how the patient's score ranks in relation to the general population. Higher percentile rankings indicate better function/quality of life. 50th percentile is the average of the general population and indicates half of respondents had a worse score. OBJECTIVE MEASURES WITH LEVEL OF FUNCTION: Posture / Alignment Posture: Forward head, Rounded shoulders LE AROM R Knee Extension: -8 Degrees (supine, -3 in long sit) R Knee Flexion: 112 Degrees L Knee Extension: -10 Degrees (in supine and long sitting) L Knee Flexion: 120 Degrees LE Strength R Hip Flexion (L2): 4+/5 R Hip ABduction: 4/5 R Knee Extension (L3): 4+/5 L Hip Flexion (L2): 4+/5 L Hip ABduction: 4+/5 L Knee Extension (L3): 5/5 Gait Gait: Independent Gait Device: None Gait Observation: decreased TKE BL- worse on L, trendelenberg Stairs: Non reciprocal - ascending L, descending R first but sideways, needs rail Functional Performance Test Results 30 Second Chair Stand Test: 12 reps (on light UE support on thighs, some discomfort - more so in L knee) Timed Up and Go (sec): 10.9 sec Education: Education Learning Preferences: Demonstration, Explanation Barriers: None Learning/educational needs: Home exercise program, Plan of Care Education Provided: Yes, see treatment interventions for education provided Education Provided To: Patient Education Mode/Type: Demonstration, Performance Response to Education/Teach Back: Return Demonstration, Requires Review/Additional Education TREATMENT: PT Treatment Interventions: Therapeutic Exercise Evaluation Therapeutic Exercise: 1: *Supine SLR x10 each 2: *Sidelying hip abduction SLR x10 each 3: *STS no UE support x10 from standard chair- emphasis on slow 4: Education on PT POC Skilled Intervention: Patient was educated in proper exercise technique and purpose for exercises. Reviewed and educated patient on additions/changes for home exercise program as above (*). Skilled judgment was used in selection of appropriate interventions. Provided written instruction for home exercise program to facilitate proper performance and compliance. Correct performance of therapeutic exercises was facilitated with verbal and visual cuing. Billing * Evaluation Moderate Complexity: 1 Unit Therapeutic Exercise Treatment Minutes: 10 Skilled Treatment Time Minutes (timed and untimed codes): 45 Total Session Time (minutes): 45 Session Start Time : 1407 Session Stop Time : 1452 Thu Scott PT documented in this encounter [facility] 10-09-2023 Note HNO ID: [id number] Author: THU SCOTT PT Service: ? Author Type: Physical Therapist Type: Progress Notes Filed: 10/09/2023 15:03 Note Text: Episode Visit Count: 1 Therapist That Will Accept/Oversee The Plan Of Care: Thu Scott PT, DPT Start of Care Date: 10/09/23 Onset Date: 01/02/23 Plan of Care Certification Date: 10/09/23 Next Certification Due Date: 12/08/23 Patient Identified by Name and Date of : Yes REHABILITATION AND SPORTS THERAPY PHYSICAL THERAPY EVALUATION PLAN OF CARE: Assessment: Moira Suh presents with chief complaint of weakness in the R leg that interferes with rising from a chair, standing, walking, stair negotiation . She presents with impairments in gait, range of motion, strength, and tissue tenderness. PROMIS? (Patient-Reported Outcomes Measurement Information System) scores were reviewed and identified as a rehabilitation concern. Prognosis for therapy is Good due to: current objective clinical presentation, positive past response to therapy, Prognosis may be limited due to chronic nature of impairments . She will benefit from skilled therapy services to meet the goals established for this plan of care as noted below. Goals for Episode of Care: created on 10/09/23 through 12/08/23 [place] in home exercise program. Patient will decrease pain rating by 2 points to meet minimal clinical important difference for numeric pain rating scale. Patient will increase active ROM of R knee to 0-120 to allow pt to to improve gait mechanics / gait pattern . Patient will demonstrate increase in BLE strength to 5/5 during manual muscle testing in order to improve function for prior functional tasks. Patient will Improve Timed Up and Go to <9.5 seconds to demonstrate decreased risk of falling. Patient will improve 30 second sit to stand to 15 reps without UE support to demonstrate improvement in functional lower extremity strength. Normal gait. Reciprocal stair negotiation with rail. Patient Goals: Improve strength and mobility, be able to go up stairs easier Planned Interventions, Frequency, and Duration: Current Frequency: 1x/week Duration: 8 weeks Total Number of Visits Planned: 8 Planned Treatment Interventions: Therapeutic exercise (02825), Neuromuscular re-education (48728), Therapeutic activities (88047), Manual therapy (89995), Self-detention management (90487), Gait Training (71308), Patient/Family/Caregiver Education, Body Mechanics Training PLAN FOR NEXT VISIT: hamstring stretching, TKE, step taps to tall step, step ups to small step, continue hip strength Patient demonstrates good understanding of plan of care and treatment. The above goals and plan of care were discussed and agreed upon by patient/family. SUBJECTIVE: R TKA 01/02/23. Discharged home with home PT. [facility] Last measurements of the knee at that time were 0-108 degrees. States it was never right after the replacement, but feels like things went down hill fast after stopping PT in March. States she still has swelling and always did. Still uses the ice machine. Has been using a microcurrent machine. Has been seeing osteopathic manipulative medicine. States she used to have significant ER of the R hip, after seeing this new person through [facility] she no longer has this problem. Was also not able to get up and down from the chair on her own until she went to this doctor. Also had some fascial release from a friend. Alot of her pain is on the lateral side/behind the knee after the surgery along with clicking. Cannot go up a step with the RLE. Cannot turn on the R leg. WAs supposed to get the L knee replaced this spring but because the R knee has not fully recovered she held off. Has a recumbant bike at home- does two 10 minute sessions on it. Pain is not constant. REcently got braces for both of her knees- usually only wears on her L knee. Patient Goals: Improve strength and mobility, be able to go up stairs easier Functional Limitations: rising from a chair, standing, walking, stair negotiation Prior Level of Function: Independent without limitations Relevant History Employment: Retired Intake Information: Prescription present Previous Treatment: NSAIDs , Ice Falls Interview: No positive findings with falls interview Aquatic Screen: Yes Pain: Pain Pain Level: 0 PROMIS Scales 10/08/2023 09/24/202303/2603/26/2023 Higher is Better Phys Func - Score 31 (moderate dysfunction) 40 (mild dysfunction) Phys Func - Percentile 3 16 Self-Eff Symptom - Score 38 (Low) 48 (Average) Self-Eff Symptom - Percentile 12 42 T-scores: mean of general population = 50. 5 points is clinically meaningfully difference Percentiles provide an indication of how the patient's score ranks in relation to the general population. Higher percentile rankings indicate better function/quality of life. 50th percentile is the average of t (more content not included)... [facility] 09-28-2023 Note HNO ID: [id number] Author: DARLINE FERRER DO Service: ? Author Type: Physician Type: Progress Notes Filed: 10/03/2023 15:31 Note Text: Osteopathic Neuromusculoskeletal Medicine Outpatient Progress Note Name: Moira Suh Date of : 1950 Date of Exam: September 28, 2023 Last ON Office Visit: 09/07/2023 Silvestre Chance DO is the PCP for this patient. I am seeing this patient for neuromusculoskeletal evaluation and if indicated, osteopathic manipulative treatment, and am returning the patient to Silvestre Chance DO for primary care. CC: This is Moira Suh, a 73 year old female. Patient presents with: Knee Pain History of Present Illness: Last OMT visit 09/07/23 (initial) for right knee pain and sensation of weakness after knee replacement November 2022. Did treat with percussion and the fascial distortion model and leg no longer externally rotated after treatment. Subsequently saw ortho 09/09 recommended hinged knee sleeve for flexion instability, no bony derangement. Today reports: Trigger band is gone, leg is no longer rotating outward 90% of the clicking behind the right knee stopped after last Sunday. Still some pain though. She can make it click if she swings the leg back and forth. However her leg is weaker, less steady and less mobile. This is intermittent. Takes a long time to get the right knee completely straight Left knee is getting worse because it has to support the right Starting PT at Dr. Ferreira's office, will be someone with more experience Reviewed: Meds, problem list, allergies Social History: Moira Suh reports that she has quit smoking. Her smoking use included cigarettes. She has a 10 pack-year smoking history. She has never used smokeless tobacco. She reports current alcohol use. She reports that she does not use drugs. Employer And Job Title: None on file Years Of Education Completed: Not specified Marital Status: Review of Systems: Positives are in bold. Constitutional: no fevers, no chills, no fatigue HEENT: no congestion Cardiovascular: no chest pain, no palpitations Respiratory: no shortness of breath, no cough Gastrointestinal: no abdominal pain, no nausea, no vomiting, no diarrhea Neurologic: no weakness, no numbness, no headaches, no dizziness Psychiatric: no significant increased stress, no depression, no anxiety Skin: no rash Musculoskeletal: + Right knee pain and weakness, no neck pain, + back pain, no arthralgia, no myalgia, no gait abnormality Physical Exam: VITALS: BP 135/82 Pulse 79 Temp (Src) 97.2 (Temporal) Wt 219 lb 12.8 oz (99.7kg) Body mass index is 36.01 kg/m? (pended). Constitutional: NAD, pleasant, alert, appears nontoxic HEENT: normocephalic, atraumatic Neck: supple, ROM of cervical spine full and equal bilaterally with pain-free end ROM Abdomen: soft, nondistended Neurologic: Alert and oriented x 3, speech is fluent, Motor strength within normal limits including hip flexion, foot plantarflexion dorsiflexion bilaterally Psychiatric: normal mood and affect, cooperative, normal speech MSK: normal curvature of cervical, thoracic, and lumbar spine, no midline bony tenderness of cervical, thoracic, or lumbar spine, no step off palpated Assessment and Plan: Encounter Diagnosis ICD-10-CM 1. Chronic pain of right knee M25.561 G89.29 2. S/P total knee arthroplasty, right Z96.651 3. Sacral back pain M53.3 4. Somatic dysfunction of thoracic region M99.02 Osteopathic manipulative treatment (OMT) 5. Somatic dysfunction of lumbar region M99.03 Osteopathic manipulative treatment (OMT) 6. Somatic dysfunction of sacral region M99.04 Osteopathic manipulative treatment (OMT) 7. Somatic dysfunction of lower extremity M99.06 Osteopathic manipulative treatment (OMT) 8. Somatic dysfunction of pelvic region M99.05 Osteopathic manipulative treatment (OMT) Patient presenting today with ongoing right knee pain after arthroplasty. She has had physical therapy but will be resuming additional therapy. OMT was performed today to improve function and reduce symptoms with good effect. After improvement in lower extremity symptoms, she then developed sacral back pain which was treated as below. This was likely due to the fact that she was compensating for her knee with her lumbosacral region. - consider looking at left knee next time as well as she reports this knee was actually worse than the right Return 1-2 months with resident clinic. Start time: 3:32pm; end time: 3:53pm Time Spent (min): 21 >50% of time spent on the date of service was dedicated to preparing to see the patient, [id number] patient care, completing clinical documentation, obtaining and/or reviewing separately obtained history, performing a medically appropriate examination, and counseling and educating the patient/family/caregiver. Patient seen and evaluated with Dr. Ferrer; please se (more content not included)... [facility] 09-28-2023 History of Present illness Narrative Associated Order(s): Osteopathic manipulative treatment (OMT) Post-Procedure Diagnose(s): Somatic dysfunction of thoracic region; Somatic dysfunction of lumbar region; Somatic dysfunction of sacral region; Somatic dysfunction of lower extremity; Somatic dysfunction of pelvic region Images from the original note were not included. Osteopathic Neuromusculoskeletal Medicine Outpatient Progress Note Name: Moira Suh Date of : 1950 Date of Exam: September 28, 2023 Last ON Office Visit: 09/07/2023 Silvestre Chance DO is the PCP for this patient. I am seeing this patient for neuromusculoskeletal evaluation and if indicated, osteopathic manipulative treatment, and am returning the patient to Silvestre Chance DO for primary care. CC: This is Moira Suh, a 73 year old female. Patient presents with: Knee Pain History of Present Illness: Last OMT visit 09/07/23 (initial) for right knee pain and sensation of weakness after knee replacement November 2022. Did treat with percussion and the fascial distortion model and leg no longer externally rotated after treatment. Subsequently saw ortho 09/09 recommended hinged knee sleeve for flexion instability, no bony derangement. Today reports: Trigger band is gone, leg is no longer rotating outward 90% of the clicking behind the right knee stopped after last Sunday. Still some pain though. She can make it click if she swings the leg back and forth. However her leg is weaker, less steady and less mobile. This is intermittent. Takes a long time to get the right knee completely straight Left knee is getting worse because it has to support the right Starting PT at Dr. Ferreira's office, will be someone with more experience Reviewed: Meds, problem list, allergies Social History: Moira Suh reports that she has quit smoking. Her smoking use included cigarettes. She has a 10 pack-year smoking history. She has never used smokeless tobacco. She reports current alcohol use. She reports that she does not use drugs. Employer And Job Title: None on file Years Of Education Completed: Not specified Marital Status: Review of Systems: Positives are in bold. Constitutional: no fevers, no chills, no fatigue HEENT: no congestion Cardiovascular: no chest pain, no palpitations Respiratory: no shortness of breath, no cough Gastrointestinal: no abdominal pain, no nausea, no vomiting, no diarrhea Neurologic: no weakness, no numbness, no headaches, no dizziness Psychiatric: no significant increased stress, no depression, no anxiety Skin: no rash Musculoskeletal: + Right knee pain and weakness, no neck pain, + back pain, no arthralgia, no myalgia, no gait abnormality Physical Exam: VITALS: BP 135/82 Pulse 79 Temp (Src) 97.2 (Temporal) Wt 219 lb 12.8 oz (99.7kg) Body mass index is 36.01 kg/m (pended). Constitutional: NAD, pleasant, alert, appears nontoxic HEENT: normocephalic, atraumatic Neck: supple, ROM of cervical spine full and equal bilaterally with pain-free end ROM Abdomen: soft, nondistended Neurologic: Alert and oriented x 3, speech is fluent, Motor strength within normal limits including hip flexion, foot plantarflexion dorsiflexion bilaterally Psychiatric: normal mood and affect, cooperative, normal speech MSK: normal curvature of cervical, thoracic, and lumbar spine, no midline bony tenderness of cervical, thoracic, or lumbar spine, no step off palpated Assessment and Plan: Encounter Diagnosis ICD-10-CM 1. Chronic pain of right knee M25.561 G89.29 2. S/P total knee arthroplasty, right Z96.651 3. Sacral back pain M53.3 4. Somatic dysfunction of thoracic region M99.02 Osteopathic manipulative treatment (OMT) 5. Somatic dysfunction of lumbar region M99.03 Osteopathic manipulative treatment (OMT) 6. Somatic dysfunction of sacral region M99.04 Osteopathic manipulative treatment (OMT) 7. Somatic dysfunction of lower extremity M99.06 Osteopathic manipulative treatment (OMT) 8. Somatic dysfunction of pelvic region M99.05 Osteopathic manipulative treatment (OMT) Patient presenting today with ongoing right knee pain after arthroplasty. She has had physical therapy but will be resuming additional therapy. OMT was performed today to improve function and reduce symptoms with good effect. After improvement in lower extremity symptoms, she then developed sacral back pain which was treated as below. This was likely due to the fact that she was compensating for her knee with her lumbosacral region. - consider looking at left knee next time as well as she reports this knee was actually worse than the right Return 1-2 months with resident clinic. Start time: 3:32pm; end time: 3:53pm Time Spent (min): 21 >50% of time spent on the date of service was dedicated to preparing to see the patient, [id number] patient care, completing clinical documentation, obtaining and/or reviewing separately obtained history, performing a medically appropriate examination, and counseling and educating the patient/family/caregiver. Patient seen and evaluated with Dr. Ferrer; please see attestation. Dashawn Lowery DO PGY-IV, ON 3:32 PM 09/28/2023 Osteopathic manipulative treatment (OMT) Time/Date:09/28/2023 3:32 PM Informed Consent Consent Obtained: Verbal Midway Protocol SIGN IN TIME OUT Consent Obtained:Verbal Body Regions: Thoracic and Lower Extremities Thoracic Technique: myofascial release, progressive inhibition of neuromusculoskeletal structures, Thoracic inlet restriction treated with myofascial release, paraspinal hypertonicity treated with soft tissue Lower Extremities Technique:balanced ligamentous tension, muscle energy, myofascial release, Bilateral IT band hypertonicity treated with myofascial release, Right tibial plateau restriction treated with myofascial release, right distal femur with dense periosteal restriction treated with old fracture technique, right patella mildly lateral treated with indirect muscle energy method, right fibular head restricted and posterior treated with balanced ligamentous tension Number of Body Regions: 1 -2 Disposition: Osteopathic manipulation tolerated well, reports subjective and objective improvement, improvement in range of motion and mechanics, instructed to increase hydration for the next 24 hours and instructed to follow up if symptoms worsen or fail to improve Comments: Please see additional notes below regarding further treatment after improvement of lower extremity Response to treatment knee: sit to stand possible without using hands to push to stand, no knee pain with walking, and right knee straightens /End active range of motion knee extension improved New symptoms: No sacral pain pre treatment. Post knee treatment , sacrum pain 7/10, unable to keep walking, feels like is catching, afraid can't get to her car. Exam: chronic compensation, lumbo-sacral pelvis, unable to adapt after knee straightened. Lumbar: L5 FRS right treated with disengagement , improved Sacrum: right unilateral flexion, chronic intraosseous strain post old fracture, treated with balanced membranous tension, fascial ligamentous release, disengagement sacroiliac joint right, improved pelvis: right iliacus spasm with anterior right innominate treated with fascial ligamentous release with traction, inhibition , improved Sacrum pain down to 4-5, ice pack given, walking much easier. On the date above, I interviewed and examined the patient. I was present for the jones component of the exam and treatment and I fully participated in Moira Suh's care. I discussed the management with the resident, Dr. Dashawn Lowery DO. I reviewed the note above and I agree with and confirm those findings as well as the plan of care. I reviewed the labs and the recent notes in [facility]. I have edited the note based on my personal assessment of the patient. My edits are represented by deletions and italic additions. I agree with the work-up as detailed in the resident's note above. Rachel Cotton D.O.-ONRUDDY, C-FM Associate Pump Room Operator, Osteopathic Neuromusculoskeletal Medicine Residency [facility] documented in this encounter [facility] 09-27-2023 Note HNO ID: [id number] Author: LELE CORTEZ MA Service: ? Author Type: Dye Blender Type: Progress Notes Filed: 09/27/2023 14:22 Note Text: POPULATION HEALTH NAVIGATION OUTREACH Action/FYI Patient is on [facility] CURRENT ROSTER Workbench list for below and needs appointment to address: Depression Screening Anxiety Screening Hepatitis C Screening Shingrix Vaccine(1 of 2) DTaP,Tdap,Td Vaccine(1 - Tdap) RSV Vaccine(1 - 1-dose 60+ series) Bone Density Screening Pneumococcal Vaccine: 65+(1 of 1 - PCV) Mammogram Screening Colorectal Cancer Screening Covid-19 Vaccine( season) Advance Directive Discussion LDL Cholesterol Hemoglobin A1C (%) Date Value 09/28/2017 5.5 Patient due for: Medicare Annual Wellness Visit - RTO in 3 months per 06/2023 OV Breast Cancer Screening Colorectal Cancer Screening Advance Directives Spoke to patient. Scheduled 01-02-24 with PCP. Noted upcoming appointment to address due care gap and HCC gap closure. Declined mammogram and Colorectal Cancer Screening. Will bring AD to upcoming OV Reason for Outreach Care Gap/HCC or Scheduling Wellness Visits Care Gaps due: Medicare Annual Wellness Visit Breast Cancer Screening Colorectal Cancer Screening Advance Directives Patient Contacted: Spoke to patient/parent/or legal guardian Patient identified by name and : Yes Care Gap/HCC/Scheduling Wellness actions taken: Patient scheduled/pended labs: Medicare Annual Wellness Visit 09/28/[address] [facility] with DASHAWN LOWERY - [facility]/ 10/18/2023 in [facility] with THU SCOTT - Aftercare following right knee joint replacement surgery [Z47.1, Z96.651] 10/26/2023 in [facility] with NELA FERREIRA - Right Knee - 1 Month Follow Up 01/02/2024 in [facility] with SILVESTRE CHANCE - Annual Wellness, Please address due care gaps and HCC gap closure Navigation Signature: Lele Cortez MA September 27, 2023 9:16 AM [facility] 09-27-2023 History of Present illness Narrative POPULATION HEALTH NAVIGATION OUTREACH Action/FYI Patient is on [facility] CURRENT ROSTER Workbench list for below and needs appointment to address: Depression Screening Anxiety Screening Hepatitis C Screening Shingrix Vaccine(1 of 2) DTaP,Tdap,Td Vaccine(1 - Tdap) RSV Vaccine(1 - 1-dose 60+ series) Bone Density Screening Pneumococcal Vaccine: 65+(1 of 1 - PCV) Mammogram Screening Colorectal Cancer Screening Covid-19 Vaccine( season) Advance Directive Discussion LDL Cholesterol Hemoglobin A1C (%) Date Value 09/28/2017 5.5 Patient due for: Medicare Annual Wellness Visit - RTO in 3 months per 06/2023 OV Breast Cancer Screening Colorectal Cancer Screening Advance Directives Spoke to patient. Scheduled 01-02-24 with PCP. Noted upcoming appointment to address due care gap and HCC gap closure. Declined mammogram and Colorectal Cancer Screening. Will bring AD to upcoming OV Reason for Outreach Care Gap/HCC or Scheduling Wellness Visits Care Gaps due: Medicare Annual Wellness Visit Breast Cancer Screening Colorectal Cancer Screening Advance Directives Patient Contacted: Spoke to patient/parent/or legal guardian Patient identified by name and : Yes Care Gap/HCC/Scheduling Wellness actions taken: Patient scheduled/pended labs: Medicare Annual Wellness Visit 09/28/[address] [facility] with DASHAWN LOWERY - [facility]/ 10/18/2023 in [facility] with THU SCOTT - Aftercare following right knee joint replacement surgery [Z47.1, Z96.651] 10/26/2023 in [facility] with NELA FERREIRA - Right Knee - 1 Month Follow Up 01/02/2024 in [facility] with SILVESTRE CHANCE - Annual Wellness, Please address due care gaps and HCC gap closure Navigation Signature: Lele Cortez MA September 27, 2023 9:16 AM documented in this encounter [facility] 09-27-2023 Note Patient Outreach (NE TNAV) VIKASHMOIRA ([id number]) 1950 F Date Time Provider Department 09/27/23 LELE CORTEZ During your visit today, we recorded the following information about you: Lele Cortez MA 09/27/2023 2:22 PM Signed POPULATION HEALTH NAVIGATION OUTREACH Action/FYI Patient is on [facility] CURRENT ROSTER Workbench list for below and needs appointment to address: Depression Screening Anxiety Screening Hepatitis C Screening Shingrix Vaccine(1 of 2) DTaP,Tdap,Td Vaccine(1 - Tdap) RSV Vaccine(1 - 1-dose 60+ series) Bone Density Screening Pneumococcal Vaccine: 65+(1 of 1 - PCV) Mammogram Screening Colorectal Cancer Screening Covid-19 Vaccine( season) Advance Directive Discussion LDL Cholesterol Hemoglobin A1C (%) Date Value 09/28/2017 5.5 Patient due for: Medicare Annual Wellness Visit - RTO in 3 months per 06/2023 OV Breast Cancer Screening Colorectal Cancer Screening Advance Directives Spoke to patient. Scheduled 01-02-24 with PCP. Noted upcoming appointment to address due care gap and HCC gap closure. Declined mammogram and Colorectal Cancer Screening. Will bring AD to upcoming OV Reason for Outreach Care Gap/HCC or Scheduling Wellness Visits Care Gaps due: Medicare Annual Wellness Visit Breast Cancer Screening Colorectal Cancer Screening Advance Directives Patient Contacted: Spoke to patient/parent/or legal guardian Patient identified by name and : Yes Care Gap/HCC/Scheduling Wellness actions taken: Patient scheduled/pended labs: Medicare Annual Wellness Visit 09/28/[address] [facility] with DASHAWN LOWERY - [facility]/ 10/18/2023 in [facility] with THU SCOTT - Aftercare following right knee joint replacement surgery [Z47.1, Z96.651] 10/26/2023 in [facility] with NELA FERREIRA - Right Knee - 1 Month Follow Up 01/02/2024 in [facility] with SILVESTRE CHANCE - Annual Wellness, Please address due care gaps and HCC gap closure Navigation Signature: Lele Cortez MA September 27, 2023 9:16 AM Allergies As of Date: 09/27/2023 Noted Allergy Reaction ATORVASTATIN CALCIUM 02/15/2016 17 - Myalgia Comments: Caused severe myalgias to bilateral thighs and across back CODEINE 12/27/2007 1 - Mental Status Change Comments: Can hear whats going on around her but she can't wake up CRESTOR (ROSUVASTATIN CALCIUM) 02/15/2016 17 - Myalgia Comments: 20 mg caused severe myalgias to upper thighs and across back Date Reviewed: 09/26/2023 Reviewed by: Hannah Brown OCCA - Fully Assessed Reason for Visit: Population Health Navigation Outreach [3910] Cmt: Sam Martinez PCSA Prescriptions as of 09/27/2023 - MEDICATION, NON-DATABASE Medical Marijuana Cream - metoprolol succinate ER (TOPROL XL) 25 mg 24 hr tablet Take 1 tablet by mouth once daily. - zmeqplq-sqmu-ystuh-oreg-capryl 100 mg-150 mg- 50 mg-150 mg cap Take 1 tablet by mouth twice daily. - Omega[employer]ics EPA-DHA 2400 (High Concentrate EPA/DHA liquid) (LearnSomething) Take one teaspoon (5 ml) 1 times daily with food - MAGNESIUM ORAL Take 135 Units by mouth once daily. Takes 4 capsules daily - ascorbic acid, vitamin C, (VITAMIN C) 500 mg tablet Take 2,000 mg by mouth once daily. - B-Complex Plus (Pure Encapsulations) - 1qD stress/energy/hormones/detox/weigh t loss Take 1 capsule by mouth once daily. - CoQ10, Liposomal Ubiquinol, 200 mg cap Take 1 capsule by mouth daily with food. - cholecalciferol (VITAMIN D3) 1,000 unit tab tablet Take 1,000 Units by mouth once daily. Meds Comments as of 01/05/2023: Current per pt.09/28/15 11.2.23 - patient reports she was told that it is now okay to resume taking all supplements/meds. Problem List As Of Date 09/27/2023 Noted Resolved UTERINE LEIOMYOMA NOS [D25.9] 12/27/2007 MUCOUS POLYP OF CERVIX [N84.1] 12/27/2007 POSTMENOPAUSAL BLEEDING [N95.0] 12/27/2007 Low HDL (under 40) [E78.6] 10/07/2012 Hyperlipidemia [E78.5] 10/07/2012 Multinodular goiter [E04.2] 10/29/2012 CAD (coronary artery disease) [I25.10] 10/15/2015 H/O non-ST elevation myocardial infarction (NST*10/15/2015 S/P CABG x 3 (L-LAD, S-CX, S-RCA) 07/2015 [Z95.1]10/15/2015 Cardiomyopathy, ischemic [I25.5] 10/15/2015 03/11/2019 Moderate mitral regurgitation [I34.0] 10/15/2015 04/26/2016 Obesity [E66.9] 10/15/2015 04/12/2017 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] 04/12/2017 Dry skin [L85.3] 04/12/2017 Hair loss [L65.9] 04/12/2017 BMI 34.0-34.9,adult [Z68.34] 04/12/2017 Exposure to mercury [Z77.018] 04/12/2017 PAF (paroxysmal atrial fibrillation) (HCC) [I48*06/26/2017 Insulin resistance [E88.819] 07/19/2017 Vitamin D deficiency [E55.9] 09/13/2017 Former smoker [Z87.891] 12/21/2022 S/P total knee arthroplasty, right [Z96.651] 01/03/2023 Primary osteoarthritis of left knee [M17.12] 01/22/2023 Primary o (more content not included)... [facility] 09-26-2023 Note HNO ID: [id number] Author: NELA FERREIRA MD Service: ? Author Type: Physician Type: Progress Notes Filed: 10/24/2023 21:08 Note Text: DR. FERREIRA- POST-OP KNEE Post-Op F/U Office Visit Moira Suh presents today for a 9 month status post Right TKA. Post-operative recovery was uneventful. Patient's rating of condition: unchanged Comments: Patient complains that the knee feels swollen and weak Does the Pt. still experience pain? PAIN EVALUATION 09/24/2023 6693 Pain Level: 7 Pain Location: Knee-Right Description: Stabbing Duration Units: Months Frequency: Intermittent Intervention/Comfort measure: Biofeedback;Cold Functional difficulties: Stair climbing Physical Therapy: Yes Pain Medication: Non-narcotic Ambulating without assistance. Medications and Allergies reviewed and verified. EXAM: GEN: AANDO x3, NAD SKIN:Appropriate postop appearance RightKnee: ROM: Flexion/Extension:0 degrees to 115 degrees Pain with ROM:No Mal-alignment: No Effusion: None Tender to palpation of the medial and lateral joint line(s). Stability: Laxity to varus valgus stress in mid flexion Quad strength: normal HIP: range of motion no loss ROM NV: intact IMAGING: Xrays: Implants are well aligned. Implants are well fixed. There is no evidence of loosening. There is evidence of osteo-integration. There is no evidence of osteolysis. Patella is well positioned. IMPRESSION/PLAN: 73 year old female s/p Right TKA Slow post-operative recovery. Exam today demonstrates evidence of mid flexion instability. She has been wearing a hinged brace at this point I would recommend referral back to physical therapy for strengthening exercises Plan: 1. Refer to physical therapy 2. Continue weightbearing as tolerated 3. Follow-up for repeat clinical evaluation Nela Ferreira MD Electronic Signature [facility] 09-26-2023 History of Present illness Narrative Images from the original note were not included. DR. FERREIRA- POST-OP KNEE Post-Op F/U Office Visit Moira Suh presents today for a 9 month status post Right TKA. Post-operative recovery was uneventful. Patient's rating of condition: unchanged Comments: Patient complains that the knee feels swollen and weak Does the Pt. still experience pain? PAIN EVALUATION 09/24/2023 7284 Pain Level: 7 Pain Location: Knee-Right Description: Stabbing Duration Units: Months Frequency: Intermittent Intervention/Comfort measure: Biofeedback;Cold Functional difficulties: Stair climbing Physical Therapy: Yes Pain Medication: Non-narcotic Ambulating without assistance. Medications and Allergies reviewed and verified. EXAM: GEN: A&O x3, NAD SKIN:Appropriate postop appearance RightKnee: ROM: Flexion/Extension:0 degrees to 115 degrees Pain with ROM:No Mal-alignment: No Effusion: None Tender to palpation of the medial and lateral joint line(s). Stability: Laxity to varus valgus stress in mid flexion Quad strength: normal HIP: range of motion no loss ROM NV: intact IMAGING: Xrays: Implants are well aligned. Implants are well fixed. There is no evidence of loosening. There is evidence of osteo-integration. There is no evidence of osteolysis. Patella is well positioned. IMPRESSION/PLAN: 73 year old female s/p Right TKA Slow post-operative recovery. Exam today demonstrates evidence of mid flexion instability. She has been wearing a hinged brace at this point I would recommend referral back to physical therapy for strengthening exercises Plan: 1. Refer to physical therapy 2. Continue weightbearing as tolerated 3. Follow-up for repeat clinical evaluation Nela Ferreira MD Electronic Signature documented in this encounter [facility] 09-21-2023 Telephone encounter Note Lvm for patient to call back and reschedule appointment on the 09/26/[address] Ferreira [facility] 09-21-2023 Miscellaneous Notes Lvm for patient to call back and reschedule appointment on the 09/26/[address] Ferreira 1st Attempt Moira Suh needs to reschedule this appointment with Dr. Ferreira because of unavailability. She should be rescheduled for specific held time. Please assist her with appointment rescheduling. If unable to do so, please verify best method of contact, and send staff message to the pool so the department may assist her. Thank you, Lele Maradiaga documented in this encounter [facility] 09-20-2023 Telephone encounter Note 1st Attempt Moira Suh needs to reschedule this appointment with Dr. Ferreira because of unavailability. She should be rescheduled for specific held time. Please assist her with appointment rescheduling. If unable to do so, please verify best method of contact, and send staff message to the pool so the department may assist her. Thank you, Lele Maradiaga [facility] 09-19-2023 Telephone encounter Note Patient did make it to vegetable picker new brace/sleeve. She was verbally thankful saying it was much more comfortable. [facility] 09-19-2023 Miscellaneous Notes Patient did make it to vegetable picker new brace/sleeve. She was verbally thankful saying it was much more comfortable. Spoke with patient she will try to get here by 3:30. She is driving alone and is concerned about getting from the parking lot to the office. If she cannot she will have to vegetable picker her to drop her at the door. I put in the order for a hinged knee sleeve and left a message for Moira. Sam Fabian PA-C Pt called and stated that she wanted to come in to get a hinged braced I called back to the Loterity tech and he informed me that there was no order placed I stated to pt that I could send a message back to place and order She then stated that she had previously spoken to a nurse and they said they would take care of it. She then asked again if she could come in today to get the brace and I then stated again that she can not get a brace without and order She then stated that the nurse stated she would handle it for her and then ended the call. ab I called patient to let her know her message was received and forwarded to Elinor. I will call her back once I hear back from Elinor. Patient called asking if she can vegetable picker a TROM brace? Patient has one at home but it is +18 years old, bulky and large. She feels the newer model might be better for her. She would like to come pick it up if possible. documented in this encounter [facility] 09-18-2023 Note HNO ID: [id number] Author: PARDEEP WYATT Cast Tech Service: ? Author Type: Dye Blender Type: Progress Notes Filed: 09/18/2023 14:22 Note Text: PT ASSESSMENT - CASTING ROOM Moira presents for Application of braces. Applied hinged wrap knee supports to Bilateral knees Patient has been instructed in Care of braces.. BILLED BY Tha Obrien [facility] 09-18-2023 History of Present illness Narrative PT ASSESSMENT - CASTING ROOM Moira presents for Application of braces. Applied hinged wrap knee supports to Bilateral knees Patient has been instructed in Care of braces.. BILLED BY Tha Obrien documented in this encounter [facility] 09-18-2023 Telephone encounter Note Spoke with patient she will try to get here by 3:30. She is driving alone and is concerned about getting from the parking lot to the office. If she cannot she will have to vegetable picker her to drop her at the door. [facility] 09-18-2023 Telephone encounter Note I put in the order for a hinged knee sleeve and left a message for Moira. Sam Fabian PA-C [facility] 09-18-2023 Telephone encounter Note Pt called and stated that she wanted to come in to get a hinged braced I called back to the rust tech and he informed me that there was no order placed I stated to pt that I could send a message back to place and order She then stated that she had previously spoken to a nurse and they said they would take care of it. She then asked again if she could come in today to get the brace and I then stated again that she can not get a brace without and order She then stated that the nurse stated she would handle it for her and then ended the call. ab [facility] 09-18-2023 Telephone encounter Note I called patient to let her know her message was received and forwarded to Elinor. I will call her back once I hear back from Elinor. [facility] [facility] Telephone encounter Note Patient called asking if she can vegetable picker a TROM brace? Patient has one at home but it is +18 years old, bulky and large. She feels the newer model might be better for her. She would like to come pick it up if possible. [facility] 09-10-2023 Note HNO ID: [id number] Author: SAM FABIAN PA-C Service: ? Author Type: Physician Veterinary X Ray Operator Type: Progress Notes Filed: 09/10/2023 16:25 Note Text: Ortho Knee Follow Up Note Narrative Referring Provider: No referring provider defined for this encounter. PCP: Silvestre Chance, DO IMPRESSION/PLAN: 73 year old s/p Right 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 completed on 01/02/2023. Recent Surgeries this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 Start time: 11:33am; end time: 1:00pm Time Spent (min): 87 >50% of time spent on the date of service was dedicated to preparing to see the patient, [id number] patient care, completing clinical documentation, obtaining and/or reviewing separately obtained history, performing a medically appropriate examination, and counseling and educating the patient/family/caregiver. Patient seen and evaluated with Dr. Luna; please see attestation. Dashawn Lowery DO PGY-IV, ONMM 11:33 AM 09/07/2023 Osteopathic manipulative treatment (OMT) Time/Date:09/07/2023 1:06 PM Informed Consent Consent Obtained: Verbal [place] Protocol SIGN IN TIME OUT Consent Obtained:Verbal Body Regions: Thoracic, Lumbar, Sacrum, Pelvis and Lower Extremities Thoracic Technique: percussion vibrator, T7 FRSR treated with percussion, thoracolumbar junction restriction treated with percussion Lumbar Technique: percussion vibrator, L4 FRSR treated with percussion Sacrum Technique: myofascial release, percussion vibrator, Right SI joint restriction treated with myofascial release and percussion Pelvis Technique: balanced ligamentous tension, Right anterior and inflared innominate treated with balanced ligamentous tension Lower Extremities Technique:myofascial release, percussion vibrator, 2 HTPs over right ITB treated with the fascial distortion model, right ITB hypertonicity treated with myofascial release and percussion, right knee restriction treated with myofascial release and percussion Number of Body Regions: 5- 6 Disposition: Osteopathic manipulation tolerated well, reports subjective and objective improvement, improvement in range of motion and mechanics, instructed to increase hydration for the next 24 hours and instructed to follow up if symptoms worsen or fail to improve Comments: Noticed leg no longer externally rotated --- On the date above, I was physically present and immediately available through the entire clinical encounter for the care of Moira Suh. I have discussed this patient's history, physical exam, diagnosis, and treatment with Dr. Lowery. I have reviewed and agree with the resident's documentation of these elements, and that the care provided was reasonable and necessary. I personally interviewed and examined the patient. I was personally present during the jones/critical portions of the patient's OMT. I have edited the note based on my personal assessment of the patient. My edits are represented by deletions and italic additions. Ammon Luna DO September 17, 2023 8:02 AM documented in this encounter [facility] 08-28-2023 Miscellaneous Notes Prescription Refill Information The patient has been identified by name and date of : Yes Caregiver verified no other encounters exist for this prescription request: Yes Caregiver confirmed with patient/requestor that no other refills are due, in the near future, with this provider at this time: Yes The last office visit in the department: 03/23/22 Does the patient have a future office visit with this provider/department: No Requested Prescriptions Pending Prescriptions Disp Refills metoprolol succinate ER (TOPROL XL) 25 mg 24 hr tablet 90 tablet 3 Sig: Take 1 tablet by mouth once daily. Patient states she only has 2 pills left and needs this sent in as soon as possible Kandice Patrick August 28, 2023 2:52 PM documented in this encounter [facility] 08-28-2023 Telephone encounter Note Prescription Refill Information The patient has been identified by name and date of : Yes Caregiver verified no other encounters exist for this prescription request: Yes Caregiver confirmed with patient/requestor that no other refills are due, in the near future, with this provider at this time: Yes The last office visit in the department: 03/23/22 Does the patient have a future office visit with this provider/department: No Requested Prescriptions Pending Prescriptions Disp Refills metoprolol succinate ER (TOPROL XL) 25 mg 24 hr tablet 90 tablet 3 Sig: Take 1 tablet by mouth once daily. Patient states she only has 2 pills left and needs this sent in as soon as possible Kandice Patrick August 28, 2023 2:52 PM [facility] 08-20-2023 Telephone encounter Note I would be happy to see her earlier than her scheduled appointment if one can be arranged It can wait until her appointment PS Sent MCM [facility] 08-20-2023 Miscellaneous Notes I would be happy to see her earlier than her scheduled appointment if one can be arranged It can wait until her appointment PS Sent MCM Spoke with Patient S/p Right TKR 01/02/2023 She has dicussed this with Elinor and Dr Ferreira at previous appts Having a lot of pain with any type of bending in the back of her knee and swelling in her leg, that has never gone away She is having a lot of difficulty walking, especially going up stairs She can stand on it with no pain Doesn't feel she never healed after surgery She can bend it normally unless it is swollen Catching in the back of her knee This started while she was still inpatient after surgery Had it all the way through her PT It did get better but it is still there No injuries Elevating legs, but not icing Progressively getting worse Loses balance, especially while pivoting Please advise Pt has an appt 09/26/23 documented in this encounter [facility] 08-17-2023 Telephone encounter Note Spoke with Patient S/p Right TKR 01/02/2023 She has dicussed this with Elinor and Dr Ferreira at previous appts Having a lot of pain with any type of bending in the back of her knee and swelling in her leg, that has never gone away She is having a lot of difficulty walking, especially going up stairs She can stand on it with no pain Doesn't feel she never healed after surgery She can bend it normally unless it is swollen Catching in the back of her knee This started while she was still inpatient after surgery Had it all the way through her PT It did get better but it is still there No injuries Elevating legs, but not icing Progressively getting worse Loses balance, especially while pivoting Please advise Pt has an appt 09/26/23 [facility] 08-06-2023 Telephone encounter Note Patient notified. Will have done today. Shi L Rockwell, MA [facility] 08-06-2023 Miscellaneous Notes Patient notified. Will have done today. Shi Solo MA I have placed UA and urine culture to confirm. Thank you, Kayla Veloz APRN.CNP Patient calling and states she was treated for UTI by Kayla Veloz CNP on 07/17 with Bactrim for 5 days. She states she had no sx's. She has completed the medication. She states she did a home urine test that indicates infection may still be present and she is asking if provider would place a urine culture order for her. She states she thinks she may have urinary frequency but that she drinks a lot of water and possibly some burning at times. No other sx's. Please advise patient. [phone] documented in this encounter [facility] 08-06-2023 Telephone encounter Note I have placed UA and urine culture to confirm. Thank you, Kayla Veloz APRN.CNP [facility] 08-03-2023 Telephone encounter Note Patient calling and states she was treated for UTI by Kayla Veloz CNP on 07/17 with Bactrim for 5 days. She states she had no sx's. She has completed the medication. She states she did a home urine test that indicates infection may still be present and she is asking if provider would place a urine culture order for her. She states she thinks she may have urinary frequency but that she drinks a lot of water and possibly some burning at times. No other sx's. Please advise patient. [phone] [facility] 07-26-2023 History of Present illness Narrative Images from the original note were not included. [facility] Treatment Team: N/A: Sonia Ibarra MD The patient is referred by Kayla Veloz for neurosurgical evaluation. Final recommendations will be communicated back to the requesting physician by way of the shared medical records, or letters to requesting physician via US Mail. Diagnosis (D32.9) Meningioma (HCC) (R93.0) Abnormal CT scan of head (R41.0) Acute confusion Subjective Chief Complaint: Amnesia episode History of Present Illness: 73 year old right handed female that presents with an episode of amnesia and imaging showing two extra-axial masses consistent with meningiomas. In late June, got out of her dry sauna to the shower, and had a blank time where she does not remember getting dressed and talking to her friend on the phone. Saw PCP where blood tests and UTI test were done. Took antibiotics for UTI. Was also concerned about dehydration at this time. No episodes like this since then or before then. Denies headaches, nausea, vomiting, numbness, tingling, weakness, changes in vision (she had surgery on both sides to remove excess skin in Sept, near vision is worse in both eyes but this is expected per her eye doctor), coordination issues, speech, hearing, history of seizures/syncope. BTNC HPI Past Medical History: PAST MEDICAL HISTORY Diagnosis Date Atrial fibrillation (HCC) Coronary artery disease Holter monitor, abnormal extra beats Hypercholesteremia Hyperlipidemia Hypertension Insulin resistance 07/19/2017 Leiomyoma of uterus, unspecified Low HDL (under 40) Past Surgical History: PAST SURGICAL HISTORY Procedure Laterality Date CORONARY ARTERY BYPASS GRAFT HX 2016 3 vessel FNA WITH IMAGING 11/27/2012 U/S FNA bilateral thyroid PAST SURGICAL HISTORY OF age 28 1 ovary removed, 1 tube reconstructed from ectopic PAST SURGICAL HISTORY OF age 20 tendon repairs to wrists after going through glass door PAST SURGICAL HISTORY OF removal of uterine polyp TOTAL KNEE REPLACEMENT Right 01/02/2023 Family History: FAMILY HISTORY Problem Relation Age of Onset Prostate Cancer Father Thyroid Mother Hypertension Mother Thyroid Sister Social History: Social History Tobacco Use Smoking status: Former Packs/day: 1.00 Years: 10.00 Additional pack years: 0.00 Total pack years: 10.00 Types: Cigarettes Smokeless tobacco: Never Vaping Use Vaping Use: Never used Substance Use Topics Alcohol use: Yes Comment: socially Drug use: No Medications: diclofenac (VOLTAREN) 1 % topical gel Apply 2 g to affected area three times a day as needed. (Patient not taking: Reported on 07/02/2023) Fluorouracil (EFUDEX) 5 % cream Apply to affected area twice daily for 2-4 weeks until red, blistering response occurs. (Patient not taking: Reported on 07/02/2023) acetaminophen (TYLENOL) 500 mg tablet Take 2 tablets by mouth every 8 hours as needed for pain. aspirin, enteric coated (ASPIRIN, ENTERIC COATED) 81 mg EC tablet Take 1 tablet by mouth two times a day for 28 days. traMADol (ULTRAM) 50 mg tablet Take 1-2 tablets by mouth every 6 hours as needed for pain. (Patient not taking: Reported on 01/17/2023) metoprolol succinate ER (TOPROL XL) 25 mg 24 hr tablet Take 1 tablet by mouth once daily. (Patient taking differently: Take 25 mg by mouth daily at bedtime.) mrzogfe-zogr-unzzp-oreg-capryl 100 mg-150 mg- 50 mg-150 mg cap Take 1 tablet by mouth twice daily. [employer] EPA-DHA 2400 (High Concentrate EPA/DHA liquid) (LearnSomething) Take one teaspoon (5 ml) 1 times daily with food (Patient taking differently: Take 5 mL by mouth once daily. Take one teaspoon (5 ml) 1 times daily with food) MAGNESIUM ORAL Take 135 Units by mouth once daily. Takes 4 capsules daily ascorbic acid, vitamin C, (VITAMIN C) 500 mg tablet Take 2,000 mg by mouth once daily. B-Complex Plus (Pure Encapsulations) - 1qD stress/energy/hormones/detox/weigh t loss Take 1 capsule by mouth once daily. CoQ10, Liposomal Ubiquinol, 200 mg cap Take 1 capsule by mouth daily with food. (Patient taking differently: Take 2 capsules by mouth daily with food.) cholecalciferol (VITAMIN D3) 1,000 unit tab tablet Take 1,000 Units by mouth once daily. Allergies: ALLERGIES Allergen Reactions Atorvastatin Calcium Myalgia Caused severe myalgias to bilateral thighs and across back Codeine Mental Status Change Can hear whats going on around her but she can't wake up Crestor [Rosuvastat* Myalgia 20 mg caused severe myalgias to upper thighs and across back Review of Systems: Constitutional: Negative for fever and recent unintentional weight change. HENT: Negative for hearing loss, loss of smell, tinnitus, loss of taste and ear infection. Musculoskeletal: Negative for arthralgias, muscle weakness, unsteady gait and arthritis. Eyes: Negative for visual change and diplopia. Respiratory: Negative for cough, recent COVID 19, shortness of breath, wheezing, obstructive sleep apnea syndrome and recent pneumonia. Cardiovascular: Negative for chest pain, leg swelling and palpitations. Gastrointestinal: Negative for abdominal pain, nausea, vomiting and dysphagia. Psychiatric: Negative for hallucinations, nervous/anxious, sleep disturbance and depression. Neurological: Negative for extremity numbness, double vision, headaches, disturbances in coordination, extremity weakness, memory loss, seizures, syncope, tinnitus, disorientation and decreased visual acuity. Objective There were no vitals taken for this visit. Physical Examination: Neurological: General: No focal deficit present. Mental Status: She is alert and oriented to person, place, and time. Sensory: Sensation is intact. Motor: Motor function is intact. No pronator drift. Motor Strength Assessment UE Bicep Tricep Delt Mandate [employer]ch[employer] HI Right 5/5 5/5 5/5 5/5 5/5 Left 5/5 5/5 5/5 5/5 5/5 LE Hip Knee Knee Plantar Dorsi EHL Flex Flex Extend Flex Flex Right 5/5 5/5 5/5 5/5 5/5 5/5 Left 5/5 5/5 5/5 5/5 5/5 5/5 Coordination: Coordination is intact. Gait: Gait normal. Deep Tendon Reflexes: Reflexes are normal and symmetric. Reflex Scores: Tricep reflexes are 2+ on the right side and 2+ on the left side. Bicep reflexes are 2+ on the right side and 2+ on the left side. Brachioradialis reflexes are 2+ on the right side and 2+ on the left side. Patellar reflexes are 2+ on the right side and 2+ on the left side. Achilles reflexes are 2+ on the right side and 2+ on the left side. Cranial Nerves CN II: Visual acuity is normal. Visual montoya full to confrontation. CN III, IV, : Extraocular movements intact bilaterally. Normal lids and orbits bilaterally. Pupils equal round and reactive to light bilaterally. CN V: Facial sensation is normal. CN VII: Full and symmetric facial movement. CN VIII: Hearing is normal. CN IX, X: Palate elevates symmetrically CN XI: Shoulder shrug strength is normal. CN XII: Tongue midline without atrophy or fasciculations. Eyes: General: Lids are normal. Extraocular Movements: Extraocular movements intact. Pupils: Pupils are equal, round, and reactive to light. Data Review: KPS and ECOG Provider Data Form Labs: CMP Latest Ref Rng & Units 07/02/2023 CMP Sodium 136 - 144 mmol/L 136 Potassium 3.7 - 5.1 mmol/L 4.8 Chloride 97 - 105 mmol/L 102 CO2 22 - 30 mmol/L 22 Glucose 74 - 99 mg/dL 94 BUN 7 - 21 mg/dL 14 Creatinine 0.58 - 0.96 mg/dL 0.56 EGFR >=60 mL/min/1.73m 96 Protein, Total 6.3 - 8.0 g/dL 7.7 Albumin 3.9 - 4.9 g/dL 4.7 Calcium 8.5 - 10.2 mg/dL 10.0 Bilirubin, Total 0.2 - 1.3 mg/dL 0.5 AST 13 - 35 U/L 23 ALT 7 - 38 U/L 20 Alkaline Phosphatase 34 - 123 U/L 74 , CBC Latest Ref Rng & Units 07/02/2023 CBC WBC 3.70 - 11.00 k/uL 5.22 RBC 3.90 - 5.20 m/uL 4.48 Hemoglobin 11.5 - 15.5 g/dL 14.6 Hematocrit 36.0 - 46.0 % 42.7 MCV 80.0 - 100.0 fL 95.3 MCH 26.0 - 34.0 pg 32.6 MCHC 30.5 - 36.0 g/dL 34.2 RDW-CV 11.5 - 15.0 % 12.0 Platelet Count 150 - 400 k/uL 171 MPV 9.0 - 12.7 fL 12.0 Baso% % 0.6 Abs Neut (ANC) 1.45 - 7.50 k/uL 2.91 Abs Lymph 1.00 - 4.00 k/uL 1.55 Abs [place] <0.87 k/uL 0.59 Abs Eosin <0.46 k/uL 0.13 Abs Baso <0.11 k/uL 0.03 NRBC /100 WBC 0.0 , and BMP Latest Ref Rng & Units 07/02/2023 BMP Glucose 74 - 99 mg/dL 94 BUN 7 - 21 mg/dL 14 Creatinine 0.58 - 0.96 mg/dL 0.56 Sodium 136 - 144 mmol/L 136 Potassium 3.7 - 5.1 mmol/L 4.8 Chloride 97 - 105 mmol/L 102 CO2 22 - 30 mmol/L 22 Anion Gap 9 - 18 mmol/L 12 Calcium 8.5 - 10.2 mg/dL 10.0 EGFR >=60 mL/min/1.73m 96 Final Pathology: NA Imaging: MRI Report MRI BRAIN WO/W IVCON Exam End: 07/20/2023 2:24 PM (Final result) Narrative: * * *Final Report* * * DATE OF EXAM: Jul 20 2023 2:24PM LD 0295 - MRI BRAIN WO/W IVCON / PROCEDURE REASON: multiple diagnoses * * * * Physician Interpretation * * * * EXAMINATION: MRI BRAIN WO/W IVCON CLINICAL HISTORY: Acute confusion. Right frontal meningioma on recent CT. TECHNIQUE: Routine brain MRI protocol without and with contrast including diffusion images. MQ: [id number]_2 Contrast: 20 mL Dotarem IV COMPARISON: 07/17/2023 RESULT: Acute Change: There is no evidence of restricted diffusion to suggest an acute infarct. Hemorrhage: No evidence of prior parenchymal hemorrhage on the gradient echo images. Mass Lesion/ Mass Effect: Again noted is a large, dural based extra-axial soft tissue mass overlying the orbital plate of the right frontal bone and adjacent lesser wing of the right sphenoid bone which is hypointense on T1 and T2, heterogeneously hyperintense on FLAIR and uniformly enhances with gadolinium compatible with a meningioma. Overall, this mass measures approximately 2.8 x 2.7 x 2.4 cm in greatest AP, transverse, and CC dimensions, respectively. Again noted is mild subjacent reactive bony thickening and moderate localized mass effect on the overlying parenchyma. A similar smaller mass overlies the dorsal aspect of the left superior frontal sulcus compatible with an additional meningioma measuring approximately 1.5 x 1.2 x 0.6 cm in greatest dimensions. This mass is spatially removed from the adjacent superior sagittal sinus and has no significant impact on the underlying parenchyma. There is no evidence of an intracranial mass elsewhere. No abnormal parenchymal or leptomeningeal enhancement is appreciated otherwise following gadolinium administration. Chronic Change: Small remote lacunar infarcts are noted in the right external and left extreme capsules. Scattered small patchy foci of hyperintensity are noted otherwise in the supratentorial white matter on FLAIR and T2 which are nonspecific but likely represent mild chronic microvascular ischemia in view of the patient's chronologic age. Parenchyma: There is mild generalized minimal volume loss. The brain parenchyma is otherwise within normal limits of signal intensity and morphology. Ventricles: Mild enlargement of lateral and third ventricles commensurate with volume loss. The fourth ventricle is within normal limits of size. Skull Base: Hypothalamic and pituitary region are grossly normal. Craniocervical junction is normal. No significant marrow replacement process. Vasculature: Major intracranial arterial structures, and dural venous sinuses show typical flow void, suggesting patency by spin echo criteria. Other: Minimal mucosal thickening is noted in the ethmoid air cells. Impression: IMPRESSION: Mild chronic microvascular ischemic changes without evidence of acute intracranial process. Large right subfrontal and small left frontal convexity meningioma with moderate localized and no significant mass effect on the adjacent parenchyma, respectively. Churn Drill Operator: BRENNAN Transcribe Date/Time: Jul 22 2023 4:56P Dictated by : MILLIE KIM MD This examination was interpreted and the report reviewed and electronically signed by: MILLIE KIM MD on Jul 22 2023 5:04PM EST and CT Brain Report CT BRAIN WO IVCON Exam End: 07/17/2023 2:48 PM (Final result) Narrative: * * *Final Report* * * DATE OF EXAM: Jul 17 2023 2:48PM [facility] [place] - CT BRAIN WO IVCON / PROCEDURE REASON: multiple diagnoses * * * * Physician Interpretation * * * * EXAMINATION: CT BRAIN WO IVCON CLINICAL HISTORY: Memory loss, confusion TECHNIQUE: Serial axial images without IV contrast were obtained from the vertex to the foramen magnum. MQ: [id number]_3 CT Radiation dose: Integrated Dose-Length Product (DLP) for this visit = 778 mGy*cm CT Dose Reduction Employed: No dose reduction techniques were required COMPARISON: None. RESULT: Post-operative change: None. Acute change: No evidence of an acute infarct or other acute parenchymal process. Hemorrhage: No evidence of acute intracranial hemorrhage. ECASS hemorrhagic transformation score: Not Applicable Mass Lesion / Mass Effect: Rounded right partially calcified sphenoid wing meningioma. No significant mass effect. Chronic change: Scattered spotty deep white matter lucency bilaterally fairly symmetrically is probably microangiopathic change. Parenchyma: There is no significant volume loss. The brain parenchyma is otherwise within normal limits for age. Ventricles: The ventricles are within normal limits of size and configuration for age. Paranasal sinuses and skull base: The visualized paranasal sinuses are grossly clear. The skull base and imaged soft tissues are unremarkable. Localizer images: Unremarkable. Impression: IMPRESSION: 2.7 cm right frontal meningioma Churn Drill Operator: BRENNAN Transcribe Date/Time: Jul 19 2023 4:02P Dictated by : EREN APARICIO MD This examination was interpreted and the report reviewed and electronically signed by: EREN APARICIO MD on Jul 19 2023 4:08PM EST Data Review: Personal review of medical records: I reviewed the [facility] chart. Personal review of image, tracing or specimen: MRI brain Lesion size:as above Multifocal: No Subependymal spread: No Assessment/Plan Diagnosis (D32.9) Meningioma (HCC) (R93.0) Abnormal CT scan of head (R41.0) Acute confusion ASSESSMENT: 73 year old right handed female that presents with an episode of amnesia and imaging showing two extra-axial masses consistent with meningiomas. PLAN: I believe this is most likely represents a meningioma although the possibility that this could represent another type of tumor was also discussed. The natural history of meningiomas was discussed in detail. Treatment options were discussed in detail including observation, radiation treatment/radiosurgery, or surgery. Of these given her lack of symptoms and new diagnosis without concerning imaging features, I recommend observation. We will repeat an MRI for interval assessment in 6 months. She will follow regularly with her eye doctor to monitor for vision changes given the proximity of the larger of the two lesions to her right optic apparatus. I spent a total of 60 minutes on the date of the service which included preparing to see the patient, [id number] patient care, completing clinical documentation, performing a medically appropriate examination, counseling and educating the patient/family/caregiver, ordering medications, tests, or procedures, communicating with other HCPs (not separately reported), independently interpreting results (not separately reported), communicating results to the patient/family/caregiver, and care coordination (not separately reported). I examined the patient and evaluated all available films and pertinent documents. This note accurately reflects work and decisions made by me. Sonia Ibarra MD July 26, 2023 2:13 PM [facility] documented in this encounter [facility] 07-26-2023 Nurse Note Additional intake questions: Has the patient had fever, nausea, vomiting, diarrhea, constipation, fatigue for > 1 week? No Does the patient have a decreased appetite? No Does patient want to see a Concrete Swimming Pool Installer? No (yes to any of above refer patient to schedulers for dietitian appointment) ) Does patient have any new or increased numbness or tingling of extremities? No Is patient interested in fertility information? No Does patient need any prescription refills? No Does patient have an advanced directive in place? Yes, no copy found in [facility] Patient referred to [facility] 07-26-2023 Nurse Note Additional intake questions: Has the patient had fever, nausea, vomiting, diarrhea, constipation, fatigue for > 1 week? No Does the patient have a decreased appetite? No Does patient want to see a Concrete Swimming Pool Installer? No (yes to any of above refer patient to schedulers for dietitian appointment) ) Does patient have any new or increased numbness or tingling of extremities? No Is patient interested in fertility information? No Does patient need any prescription refills? No Does patient have an advanced directive in place? Yes, no copy found in [facility] Patient referred to [facility] documented in this encounter [facility] 07-23-2023 Telephone encounter Note Pt scheduled. Demetra Crowell MA [facility] 07-23-2023 Miscellaneous Notes Pt scheduled. Demetra Crowell MA Given to PSR for scheduling Please call patient and let her know that MRI does show 2 meningiomas (one larger and one small) both in the frontal lobe without significant effect on surrounding tissue. I ordered neurosurgery consult but I don't see this scheduled. Can we please look into this FLORINA. Thank you, Kayla Veloz APRN.CNP documented in this encounter [facility] 07-23-2023 Telephone encounter Note Given to PSR for scheduling [facility] Work Phone: 07-23-2023 Telephone encounter Note Please call patient and let her know that MRI does show 2 meningiomas (one larger and one small) both in the frontal lobe without significant effect on surrounding tissue. I ordered neurosurgery consult but I don't see this scheduled. Can we please look into this FLORINA. Thank you, Kayla Veloz APRN.CNP [facility] 07-20-2023 Telephone encounter Note Time Frame: FLORINA < 3 weeks Provider: Any surgeon Referring: Kayla Veloz APRN.CN Dx: Right frontal meningioma Patient: Moira Suh Address: Moira Suh [id number] [place] [id number] Per Triage: Moira Suh is a 73 year old female who presented to the ED with an episode of memory loss. CT brain followed by MRI brain done in workup showing Right frontal presumed meningioma. Per nurse triage on 06/29: Below discussed with Dr. Velarde. If this happens again or pt has any other unusual symptoms or stroke like symptoms, she needs to go to the ER immediately. Since pt is feeling well now and no further issues or other symptoms, per Dr. Velarde, schedule pt an appt on Sunday. Appt given with Kayla Veloz. Reinstructed that pt should go to ER if this happens again. Pt verbalizes understanding. Reason for Disposition [1] Acting confused (e.g., disoriented, slurred speech) AND [2] brief (now gone) Answer Assessment - Initial Assessment Questions 1. LEVEL OF CONSCIOUSNESS: Pt alert and oriented now. States yesterday late afternoon around 330ish, pt had an episode of memory loss and confusion. States went in the sauna around 220 pm an dwas in there for 35 mins. Came out and cooled off then took a shower. She remembers toweling off and towel drying her hair. The next thing she remembered was sitting at her computer. She was dressed and her hair was dry. Patient had no recollection of drying her hair or getting dressed. Talked to a friend in the evening who said she had called pt during that time frame and acted confused on the phone. Pt states does not remember the phone conversation at all. Pt unsure of how long she doesn't have memory of-guessed maybe 15-30 mins. Asked pt about her hair gettting dried and how long it takes to air dry if she didn't blow it dry. Pt guessing 15 mons or so. 2. ONSET: See above 3. PATTERN Only occurred that one time. 4. ALCOHOL or DRUGS:n/a 5. NARCOTIC MEDICINES: n/a 6. CAUSE: Pt wondering if it was because of being in the sauna. But pt goes in the sauna often. 7. OTHER SYMPTOMS: Pt denies any headache, visual disturbances, weakness, numbness or tingling, fever or being ill. States feels fine. Patient expectations: New Consult Tumor Specifics: Location: brain Previous Evaluations: MRI w/wo contrast IN PROCESS 07/19/23 CT brain (07/19/23): IMPRESSION: 2.7 cm right frontal meningioma Churn Drill Operator: BRENNAN Transcribe Date/Time: Jul 19 2023 4:02P Dictated by : EREN APARICIO MD This examination was interpreted and the report reviewed and electronically signed by: EREN APARICIO MD on Jul 19 2023 4:08PM EST Results-Findings * * *Final Report* * * DATE OF EXAM: Jul 17 2023 2:48PM [facility] [place] BRAIN WO IVCON / PROCEDURE REASON: multiple diagnoses * * * * Physician Interpretation * * * * EXAMINATION: CT BRAIN WO IVCON CLINICAL HISTORY: Memory loss, confusion TECHNIQUE: Serial axial images without IV contrast were obtained from the vertex to the foramen magnum. MQ: CTBWO_3 CT Radiation dose: Integrated Dose-Length Product (DLP) for this visit = 778 mGy*cm CT Dose Reduction Employed: No dose reduction techniques were required COMPARISON: None. RESULT: Post-operative change: None. Acute change: No evidence of an acute infarct or other acute parenchymal process. Hemorrhage: No evidence of acute intracranial hemorrhage. ECASS hemorrhagic transformation score: Not Applicable Mass Lesion / Mass Effect: Rounded right partially calcified sphenoid wing meningioma. No significant mass effect. Chronic change: Scattered spotty deep white matter lucency bilaterally fairly symmetrically is probably microangiopathic change. Parenchyma: There is no significant volume loss. The brain parenchyma is otherwise within normal limits for age. Ventricles: The ventricles are within normal limits of size and configuration for age. Paranasal sinuses and skull base: The visualized paranasal sinuses are grossly clear. The skull base and imaged soft tissues are unremarkable. Localizer images: Unremarkable. Paty Sales APRN.SUMEET July 20, 2023 [facility] 07-20-2023 Miscellaneous Notes Time Frame: FLORINA < 3 weeks Provider: Any surgeon Referring: Kayla Veloz APRN.CN Dx: Right frontal meningioma Patient: Moira Suh Address: Moira Suh [id number] [place] [id number] Per Triage: Moira Suh is a 73 year old female who presented to the ED with an episode of memory loss. CT brain followed by MRI brain done in workup showing Right frontal presumed meningioma. Per nurse triage on 06/29: Below discussed with Dr. Velarde. If this happens again or pt has any other unusual symptoms or stroke like symptoms, she needs to go to the ER immediately. Since pt is feeling well now and no further issues or other symptoms, per Dr. Velarde, schedule pt an appt on Sunday. Appt given with Kayla Veloz. Reinstructed that pt should go to ER if this happens again. Pt verbalizes understanding. Reason for Disposition [1] Acting confused (e.g., disoriented, slurred speech) AND [2] brief (now gone) Answer Assessment - Initial Assessment Questions 1. LEVEL OF CONSCIOUSNESS: Pt alert and oriented now. States yesterday late afternoon around 330ish, pt had an episode of memory loss and confusion. States went in the sauna around 220 pm an dwas in there for 35 mins. Came out and cooled off then took a shower. She remembers toweling off and towel drying her hair. The next thing she remembered was sitting at her computer. She was dressed and her hair was dry. Patient had no recollection of drying her hair or getting dressed. Talked to a friend in the evening who said she had called pt during that time frame and acted confused on the phone. Pt states does not remember the phone conversation at all. Pt unsure of how long she doesn't have memory of-guessed maybe 15-30 mins. Asked pt about her hair gettting dried and how long it takes to air dry if she didn't blow it dry. Pt guessing 15 mons or so. 2. ONSET: See above 3. PATTERN Only occurred that one time. 4. ALCOHOL or DRUGS:n/a 5. NARCOTIC MEDICINES: n/a 6. CAUSE: Pt wondering if it was because of being in the sauna. But pt goes in the sauna often. 7. OTHER SYMPTOMS: Pt denies any headache, visual disturbances, weakness, numbness or tingling, fever or being ill. States feels fine. Patient expectations: New Consult Tumor Specifics: Location: brain Previous Evaluations: MRI w/wo contrast IN PROCESS 07/19/23 CT brain (07/19/23): IMPRESSION: 2.7 cm right frontal meningioma Churn Drill Operator: BRENNAN Transcribe Date/Time: Jul 19 2023 4:02P Dictated by : EREN APARICIO MD This examination was interpreted and the report reviewed and electronically signed by: EERN APARICIO MD on Jul 19 2023 4:08PM EST Results-Findings * * *Final Report* * * DATE OF EXAM: Jul 17 2023 2:48PM [facility] [place] BRAIN WO IVCON / PROCEDURE REASON: multiple diagnoses * * * * Physician Interpretation * * * * EXAMINATION: CT BRAIN WO IVCON CLINICAL HISTORY: Memory loss, confusion TECHNIQUE: Serial axial images without IV contrast were obtained from the vertex to the foramen magnum. MQ: CTBWO_3 CT Radiation dose: Integrated Dose-Length Product (DLP) for this visit = 778 mGy*cm CT Dose Reduction Employed: No dose reduction techniques were required COMPARISON: None. RESULT: Post-operative change: None. Acute change: No evidence of an acute infarct or other acute parenchymal process. Hemorrhage: No evidence of acute intracranial hemorrhage. ECASS hemorrhagic transformation score: Not Applicable Mass Lesion / Mass Effect: Rounded right partially calcified sphenoid wing meningioma. No significant mass effect. Chronic change: Scattered spotty deep white matter lucency bilaterally fairly symmetrically is probably microangiopathic change. Parenchyma: There is no significant volume loss. The brain parenchyma is otherwise within normal limits for age. Ventricles: The ventricles are within normal limits of size and configuration for age. Paranasal sinuses and skull base: The visualized paranasal sinuses are grossly clear. The skull base and imaged soft tissues are unremarkable. Localizer images: Unremarkable. Paty Sales APRN.CNP July 20, 2023 Procedure: CONSULT TO NEUROSURGERY Status: Needs Scheduling Requested appt date: Authorizing: [facility] Referral: [id number] (Authorized) Expires: 07/19/2024 Priority: Routine Diagnosis: Meningioma (HCC) [D32.9] Abnormal CT scan of head [R93.0] Acute confusion [R41.0] Order Specific Questions [facility] Brain Tumor Does consulting provider have [facility] Epic access? Yes Reason For Visit documented in this encounter [facility] 07-20-2023 Note HNO ID: [id number] Author: NANCY PAREDES RT(R) Service: ? Author Type: Technologist Type: Progress Notes Filed: 07/20/2023 14:27 Note Text: Radiology Service Progress Note DATE OF SERVICE: July 20, 2023 TIME: 1:51 PM PATIENT IDENTITY VERIFICATION COMPLETED USING TWO (2) STANDARD IDENTIFIERS: Name and Date of confirmed by patient verbally. FALL SCREENING: Has the patient had 2 falls in the last year or 1 fall with injury or currently using an Ambulatory Assistive Device (Walker, Cane, Wheelchair, Crutches, etc.)? No PATIENT GENDER DATA: Female. status: : No status: NO. PATIENT RELEVANT IMPLANT DATA REVIEWED: Yes PATIENT PRESENTS WITH AN IMPLANTABLE OR ATTACHED RN CLINICAL TRIALS: No ALLERGIES: Reviewed and unchanged CONTRAST ALLERGY: NO. EXAM: MRI - CONTRAST TYPE: GROUP II PERIPHERAL IV DATA: Ambulatory: A peripheral IV was started in the Left antecubital site with a Angio cath: 22 gauge. RADIOLOGY DEPARTMENT: MR; Exam(s) Completed: Head: Routine Brain SIGNATURE: Nancy Paredes RDMS, RVT- [facility] ([facility]) PATIENT NAME: Moira Suh DATE: July 20, 2023 TIME: 1:51 PM [facility] 07-20-2023 History of Present illness Narrative Radiology Service Progress Note DATE OF SERVICE: July 20, 2023 TIME: 1:51 PM PATIENT IDENTITY VERIFICATION COMPLETED USING TWO (2) STANDARD IDENTIFIERS: Name and Date of confirmed by patient verbally. FALL SCREENING: Has the patient had 2 falls in the last year or 1 fall with injury or currently using an Ambulatory Assistive Device (Walker, Cane, Wheelchair, Crutches, etc.)? No PATIENT GENDER DATA: Female. status: : No status: NO. PATIENT RELEVANT IMPLANT DATA REVIEWED: Yes PATIENT PRESENTS WITH AN IMPLANTABLE OR ATTACHED RN CLINICAL TRIALS: No ALLERGIES: Reviewed and unchanged CONTRAST ALLERGY: NO. EXAM: MRI - CONTRAST TYPE: GROUP II PERIPHERAL IV DATA: Ambulatory: A peripheral IV was started in the Left antecubital site with a Angio cath: 22 gauge. RADIOLOGY DEPARTMENT: MR; Exam(s) Completed: Head: Routine Brain SIGNATURE: Nancy Paredes RDMS, WALKER [place] ([facility]) PATIENT NAME: Moira Suh DATE: July 20, 2023 TIME: 1:51 PM documented in this encounter [facility] 07-20-2023 Telephone encounter Note Procedure: CONSULT TO NEUROSURGERY Status: Needs Scheduling Requested appt date: Authorizing: Kayla Veloz APRN.CNP in [facility] Referral: [id number] (Authorized) Expires: 07/19/2024 Priority: Routine Diagnosis: Meningioma (HCC) [D32.9] Abnormal CT scan of head [R93.0] Acute confusion [R41.0] Order Specific Questions [facility] Brain Tumor Does consulting provider have [facility] Epic access? Yes Reason For Visit [facility] 07-20-2023 Telephone encounter Note Patient notified of results and provider's instructions. Patient verbalizes understanding. Patient transferred to get this scheduled. Maryjane Medina RN [facility] 07-20-2023 Miscellaneous Notes Patient notified of results and provider's instructions. Patient verbalizes understanding. Patient transferred to get this scheduled. Maryjane Medina RN Please call patient and let her know that CT of brain did show a 2.7 cm right frontal meningioma. This is a tumor. In this area, this is usually benign. We need to complete MRI of brain and send patient to neuro surgery -- FLORINA. Thank you, Kayla Veloz APRN.CNP documented in this encounter [facility] 07-20-2023 Telephone encounter Note Please call patient and let her know that CT of brain did show a 2.7 cm right frontal meningioma. This is a tumor. In this area, this is usually benign. We need to complete MRI of brain and send patient to neuro surgery -- FLORINA. Thank you, Kayla Veloz APRN.CNP [facility] 07-20-2023 Telephone encounter Note Noted. Will address with patient. Kayla Veloz APRN.CNP [facility] 07-20-2023 Miscellaneous Notes Noted. Will address with patient. Kayla Veloz APRN.CNP Salma from [facility] Radiology calling Radiologist would like to make sure CUSTOMER PROGRAM SPECIALIST sees results of patient CT Brain please. documented in this encounter [facility] 07-19-2023 Telephone encounter Note Salma from [facility] Radiology calling Radiologist would like to make sure CUSTOMER PROGRAM SPECIALIST sees results of patient CT Brain please. [facility] 07-18-2023 Telephone encounter Note Phoned patient and went over notes from Kayla Veloz CUSTOMER PROGRAM SPECIALIST with understanding. Aware rx sent to pharmacy. [facility] 07-18-2023 Miscellaneous Notes Phoned patient and went over notes from Kayla Veloz CUSTOMER PROGRAM SPECIALIST with understanding. Aware rx sent to pharmacy. I agree. Lets do Bactrim BID x 5 days. Let me know if no improvement in symptoms after completion. Thank you, Kayla Veloz APRN.OVEN BAKER The following approved medication requests have been transmitted electronically. Requested Prescriptions Signed Prescriptions Disp Refills sulfamethoxazole-trimethoprim (BACTRIM DS) 800-160 mg per tablet 10 tablet 0 Sig: Take 1 tablet by mouth two times a day for 5 days. Authorizing Provider: KAYLA VELOZ APRN.OVEN BAKER Patient calling to update Kayla Veloz CNP of her urinary symptoms. Please note pt's MC message from 07/15/23, as copied: Kayla, I continue to test positive for a UTI. I'm thinking that I should get medication. A low grade infection that is ongoing is not a good thing. If you could call something in for me, I would appreciate it. Thanks. Moira Suh Patient uses [facility]. Please call patient with advise/update. [phone] Thank you. documented in this encounter [facility] 07-18-2023 Telephone encounter Note I agree. Lets do Bactrim BID x 5 days. Let me know if no improvement in symptoms after completion. Thank you, Kayla Veloz APRN.OVEN BAKER The following approved medication requests have been transmitted electronically. Requested Prescriptions Signed Prescriptions Disp Refills sulfamethoxazole-trimethoprim (BACTRIM DS) 800-160 mg per tablet 10 tablet 0 Sig: Take 1 tablet by mouth two times a day for 5 days. Authorizing Provider: KAYLA VELOZ APRN.CNP [facility] 07-18-2023 Telephone encounter Note Patient calling to update Kayla Veloz CNP of her urinary symptoms. Please note pt's MC message from 07/15/23, as copied: Kayla, I continue to test positive for a UTI. I'm thinking that I should get medication. A low grade infection that is ongoing is not a good thing. If you could call something in for me, I would appreciate it. Thanks. Moira Suh Patient uses [facility]. Please call patient with advise/update. [phone] Thank you. [facility] 07-18-2023 History of Present illness Narrative POPULATION HEALTH NAVIGATION OUTREACH Action/FYI Spoke to patient regarding Annual Medicare Wellness and patient declined scheduling. Reason for Outreach Care Gap/HCC or Scheduling Wellness Visits Care Gaps due: Medicare Annual Wellness Visit Breast Cancer Screening Colorectal Cancer Screening Patient Contacted: Spoke to patient/parent/or legal guardian Patient identified by name and : Yes Care Gap/HCC/Scheduling Wellness actions taken: Patient declined: Not interested in scheduling Navigation Signature: Chiqui Liang MA July 18, 2023 10:37 AM documented in this encounter [facility] 07-17-2023 Miscellaneous Notes Radiology Service Progress Note PATIENT NAME: Moira Suh DATE OF SERVICE: July 17, 2023 TIME: 2:45 PM PATIENT IDENTITY VERIFICATION COMPLETED USING TWO (2) IDENTIFIERS: Name and Date of confirmed by patient verbally and Name and Date of confirmed by identification band. FALL SCREENING: Has the patient had 2 falls in the last year or 1 fall with injury or currently using an Ambulatory Assistive Device (Walker, Cane, Wheelchair, Crutches, etc.)? No PATIENT GENDER DATA: Female. status: : No status: NO. PATIENT RELEVANT IMPLANT DATA REVIEWED: Not Applicable PATIENT PRESENTS WITH AN IMPLANTABLE OR ATTACHED RN CLINICAL TRIALS: No RADIOLOGY DEPARTMENT: CT; Exam(s) Completed: Brain PERIPHERAL IV DATA: Not applicable SIGNED BY: RAMIRO Wills July 17, 2023 2:45 PM documented in this encounter [facility] 07-17-2023 Progress note Formatting of t his note might be different from the original. Radiology Service Progress Note PATIENT NAME: Moira Suh DATE OF SERVICE: July 17, 2023 TIME: 2:45 PM PATIENT IDENTITY VERIFICATION COMPLETED USING TWO (2) IDENTIFIERS: Name and Date of confirmed by patient verbally and Name and Date of confirmed by identification band. FALL SCREENING: Has the patient had 2 falls in the last year or 1 fall with injury or currently using an Ambulatory Assistive Device (Walker, Cane, Wheelchair, Crutches, etc.)? No PATIENT GENDER DATA: Female. status: : No status: NO. PATIENT RELEVANT IMPLANT DATA REVIEWED: Not Applicable PATIENT PRESENTS WITH AN IMPLANTABLE OR ATTACHED RN CLINICAL TRIALS: No RADIOLOGY DEPARTMENT: CT; Exam(s) Completed: Brain PERIPHERAL IV DATA: Not applicable SIGNED BY: RAMIRO Wills July 17, 2023 2:45 PM [facility] 07-05-2023 Telephone encounter Note Please see pt reply Latonia Romano MA [facility] 07-05-2023 Miscellaneous Notes Please see pt reply Latonia Romano MA documented in this encounter [facility] 07-02-2023 History of Present illness Narrative Chief Complaint Patient presents with: memory loss for a period of time Sunday afternoon: Pt remembers getting into saunaat 2:02 remembers getting out standing in front of mirror undressed putting stuff in hair th next thing she was totally dress hair dry sitting in front of her computer. Someone called to ask if she was ok at 3:33. Said she spoke with her a bit ago was irritable. But spoke normally. HPI Moira Suh is a 73 year old female who presents here today for Above Complaints. Moira is an established patient of Dr. Robson DO. She is a new patient to me today. Concerns today... Per nurse triage on 06/29: Below discussed with Dr. Velarde. If this happens again or pt has any other unusual symptoms or stroke like symptoms, she needs to go to the ER immediately. Since pt is feeling well now and no further issues or other symptoms, per Dr. Velarde, schedule pt an appt on Sunday. Appt given with Kayla Veloz. Reinstructed that pt should go to ER if this happens again. Pt verbalizes understanding. Reason for Disposition [1] Acting confused (e.g., disoriented, slurred speech) AND [2] brief (now gone) Answer Assessment - Initial Assessment Questions 1. LEVEL OF CONSCIOUSNESS: Pt alert and oriented now. States yesterday late afternoon around 330ish, pt had an episode of memory loss and confusion. States went in the sauna around 220 pm an dwas in there for 35 mins. Came out and cooled off then took a shower. She remembers toweling off and towel drying her hair. The next thing she remembered was sitting at her computer. She was dressed and her hair was dry. Patient had no recollection of drying her hair or getting dressed. Talked to a friend in the evening who said she had called pt during that time frame and acted confused on the phone. Pt states does not remember the phone conversation at all. Pt unsure of how long she doesn't have memory of-guessed maybe 15-30 mins. Asked pt about her hair gettting dried and how long it takes to air dry if she didn't blow it dry. Pt guessing 15 mons or so. 2. ONSET: See above 3. PATTERN Only occurred that one time. 4. ALCOHOL or DRUGS:n/a 5. NARCOTIC MEDICINES: n/a 6. CAUSE: Pt wondering if it was because of being in the sauna. But pt goes in the sauna often. 7. OTHER SYMPTOMS: Pt denies any headache, visual disturbances, weakness, numbness or tingling, fever or being ill. States feels fine. In office today.... Pt reports similar story as above. Got in sauna around 2pm on Sunday afternoon x 35 minutes (this is a very normal and frequent routine for pt). Then got out of sauna and relaxed for 10-15 minutes before getting in the shower. Quick shower x 5-10 minutes. Last thing she remembers, she was towel drying her hair and putting some product in it. Next thing she knows she is sitting at office desk, fulling dressed, and hair blow-dried. This was about 1 hour later. During this one hour time lapse, pt dressed herself appropriately, spoke to friend on phone, and blow dried hair. Friend reports pt did seem off, confused, and irritable on the phone. But no slurred speech. Once she came to, she instantly knew there was a time lapse of confusion. No s/s since this episode. was outside doing yard work this whole time so he was not aware till later. Pt does not live alone. Pt does recall only having 1 glass of water all day Sunday. No prior hx of stroke or [place] or clots. No blood thinner medication. Hx of cardiac triple bypass. Recent ECHO was normal per pt -- done at [facility]. Mother is alive at age 100. No personal or family history of dementia or alzheimer Last 14 Encounter BP Readings: Date: BP: 07/02/2023 120/80 02/15/2023 154/87 01/19/2023 156/80 01/18/2023 136/86 01/15/2023 142/78 01/12/2023 146/70 01/10/2023 130/82 01/08/2023 128/78 01/05/2023 142/76 01/04/2023 120/70 01/02/2023 109/72 12/20/2022 150/92 10/26/2022 124/69 10/16/2022 104/61 Past medical history, appointments, medications, allergies reviewed. Previous Medical History PAST MEDICAL HISTORY Diagnosis Date Atrial fibrillation (HCC) Coronary artery disease Holter monitor, abnormal extra beats Hypercholesteremia Hyperlipidemia Hypertension Insulin resistance 07/19/2017 Leiomyoma of uterus, unspecified Low HDL (under 40) Previous Surgical History PAST SURGICAL HISTORY Procedure Laterality Date CORONARY ARTERY BYPASS GRAFT HX 2016 3 vessel FNA WITH IMAGING 11/27/2012 U/S FNA bilateral thyroid PAST SURGICAL HISTORY OF age 28 1 ovary removed, 1 tube reconstructed from ectopic PAST SURGICAL HISTORY OF age 20 tendon repairs to wrists after going through glass door PAST SURGICAL HISTORY OF removal of uterine polyp TOTAL KNEE REPLACEMENT Right 01/02/2023 Family History FAMILY HISTORY Problem Relation Age of Onset Prostate Cancer Father Thyroid Mother Hypertension Mother Thyroid Sister Patient Allergies ALLERGIES Allergen Reactions Atorvastatin Calcium Myalgia Caused severe myalgias to bilateral thighs and across back Codeine Mental Status Change Can hear whats going on around her but she can't wake up Crestor [Rosuvastat* Myalgia 20 mg caused severe myalgias to upper thighs and across back Current Medications Current Outpatient Medications on File Prior to Visit Medication Sig diclofenac (VOLTAREN) 1 % topical gel Apply 2 g to affected area three times a day as needed. Fluorouracil (EFUDEX) 5 % cream Apply to affected area twice daily for 2-4 weeks until red, blistering response occurs. acetaminophen (TYLENOL) 500 mg tablet Take 2 tablets by mouth every 8 hours as needed for pain. aspirin, enteric coated (ASPIRIN, ENTERIC COATED) 81 mg EC tablet Take 1 tablet by mouth two times a day for 28 days. traMADol (ULTRAM) 50 mg tablet Take 1-2 tablets by mouth every 6 hours as needed for pain. (Patient not taking: Reported on 01/17/2023) metoprolol succinate ER (TOPROL XL) 25 mg 24 hr tablet Take 1 tablet by mouth once daily. (Patient taking differently: Take 25 mg by mouth daily at bedtime.) whjqeog-iqli-bwmtp-oreg-capryl 100 mg-150 mg- 50 mg-150 mg cap Take 1 tablet by mouth twice daily. OmegaGenics EPA-DHA 2400 (High Concentrate EPA/DHA liquid) (LearnSomething) Take one teaspoon (5 ml) 1 times daily with food (Patient taking differently: Take 5 mL by mouth once daily. Take one teaspoon (5 ml) 1 times daily with food) MAGNESIUM ORAL Take 135 Units by mouth once daily. Takes 4 capsules daily ascorbic acid, vitamin C, (VITAMIN C) 500 mg tablet Take 2,000 mg by mouth once daily. B-Complex Plus (Pure Encapsulations) - 1qD stress/energy/hormones/detox/weigh t loss Take 1 capsule by mouth once daily. CoQ10, Liposomal Ubiquinol, 200 mg cap Take 1 capsule by mouth daily with food. (Patient taking differently: Take 2 capsules by mouth daily with food.) cholecalciferol (VITAMIN D3) 1,000 unit tab tablet Take 1,000 Units by mouth once daily. No current facility-administered medications on file prior to visit. Social History Social History Tobacco Use Smoking status: Former Packs/day: 1.00 Years: 10.00 Additional pack years: 0.00 Total pack years: 10.00 Types: Cigarettes Smokeless tobacco: Never Vaping Use Vaping Use: Never used Substance Use Topics Alcohol use: Yes Comment: socially Drug use: No REVIEW OF SYSTEMS: as above Reviewed relevant PMHx, PSHx, Social Hx, current medications and allergies. Review of Symptoms REVIEW OF SYSTEMS See HPI. EXAM: BP 120/80 (BP Site: Left Arm, BP Position: Sitting, BP Cuff Size: Large Adult) Pulse 60 Resp 16 Wt 96.5 kg (212 lb 12.8 oz) BMI 34.87 kg/m General Appearance: Well appearing, alert, in no acute distress, well-hydrated, well nourished.. Skin: Skin color, texture, turgor normal, no suspicious rashes or lesions. Head: Normocephalic, no masses, lesions, tenderness or abnormalities. Lungs: Lungs clear to auscultation. No wheezing, rhonchi, rales.. Heart: RRR without murmur, gallop, or rubs. No ectopy. Neurologic: Gait normal. Reflexes normal and symmetric. Sensation grossly intact., Negative findings: speech normal, mental status intact, cranial nerves 2-12 intact, muscle tone normal, muscle strength normal, rapid alternating movements normal, finger to nose normal. Health Maintenance List Hepatitis C Screening Never done Shingrix Vaccine(1 of 2) Never done DTaP,Tdap,Td Vaccine(1 - Tdap) due on 11/22/2004 RSV Vaccine(1 - 1-dose 60+ series) Never done Bone Density Screening Never done Pneumococcal Vaccine: 65+(1 of 1 - PCV) Never done Mammogram Screening due on 12/21/2019 Colorectal Cancer Screening due on 12/21/2019 Covid-19 Vaccine( season) due on 11/03/2022 Advance Directive Discussion Never done Behavioral Health Screening Never done LDL Cholesterol due on 03/13/2023 Influenza Vaccine(Season Ended) due on 11/04/2023 Annual PCP Team Chronic Disease Visit due on 07/01/2024 Diabetes Screening due on 01/03/2026 Lipid Screening due on 03/13/2027 ASSESSMENT/PLAN: 1. Hyperlipidemia, unspecified hyperlipidemia type - ICD9: 272.4, ICD10: E78.5 (primary diagnosis) - Control undetermined, due for labs - Continue current medications - Counseled on healthy diet and regular exercise - LIPOPROTEIN (A) 2. Acute confusion - ICD9: 293.0, ICD10: R41.0 Possible TIA? CT brain to rule out any tumor/mass. If any symptoms recur, will likely need MRI of brain and/or STAT ER evaluation. Pt agreeable. Lab work as below. - CT BRAIN WO IVCON - COMPLETE BLOOD COUNT AND DIFFERENTIAL - COMPREHENSIVE METABOLIC PANEL - UA DIP, URINE (POC) - SEDIMENTATION RATE, WESTERGREN - C-REACTIVE PROTEIN 3. 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 - LIPOPROTEIN (A) 4. Elevated blood lead level - ICD9: 790.6, ICD10: R78.71 Recheck after chelation therapy. - LEAD BLOOD 5. Transient cerebral ischemia, unspecified type - ICD9: 435.9, ICD10: G45.9 Like TIA given s/s and HPI. If symptoms reoccur, need brain MRI. RTO in 3 months, sooner if needed. Prescription instructions reviewed with patient as applicable. Potential red flag symptoms discussed with the patient. Reviewed appropriate action plan to take if red flag symptoms occur. Patient agreeable to treatment plan. Kayla Jewell APRN.[facility] [address] [place] [address] documented in this encounter [facility] 06-30-2023 Telephone encounter Note Noted Brady Velarde MD [facility] Work Phone: 06-30-2023 Miscellaneous Notes Noted Brady Velarde MD Below discussed with Dr. Velarde. If this happens again or pt has any other unusual symptoms or stroke like symptoms, she needs to go to the ER immediately. Since pt is feeling well now and no further issues or other symptoms, per Dr. Velarde, schedule pt an appt on Sunday. Appt given with Kayla Veloz. Reinstructed that pt should go to ER if this happens again. Pt verbalizes understanding. Reason for Disposition [1] Acting confused (e.g., disoriented, slurred speech) AND [2] brief (now gone) Answer Assessment - Initial Assessment Questions 1. LEVEL OF CONSCIOUSNESS: Pt alert and oriented now. States yesterday late afternoon around 330ish, pt had an episode of memory loss and confusion. States went in the sauna around 220 pm an dwas in there for 35 mins. Came out and cooled off then took a shower. She remembers toweling off and towel drying her hair. The next thing she remembered was sitting at her computer. She was dressed and her hair was dry. Patient had no recollection of drying her hair or getting dressed. Talked to a friend in the evening who said she had called pt during that time frame and acted confused on the phone. Pt states does not remember the phone conversation at all. Pt unsure of how long she doesn't have memory of-guessed maybe 15-30 mins. Asked pt about her hair gettting dried and how long it takes to air dry if she didn't blow it dry. Pt guessing 15 mons or so. 2. ONSET: See above 3. PATTERN Only occurred that one time. 4. ALCOHOL or DRUGS:n/a 5. NARCOTIC MEDICINES: n/a 6. CAUSE: Pt wondering if it was because of being in the sauna. But pt goes in the sauna often. 7. OTHER SYMPTOMS: Pt denies any headache, visual disturbances, weakness, numbness or tingling, fever or being ill. States feels fine. Protocols used: Confusion - [id number] documented in this encounter [facility] 06-30-2023 Telephone encounter Note error [facility] 06-30-2023 Miscellaneous Notes error documented in this encounter [facility] 06-30-2023 Telephone encounter Note Below discussed with Dr. Velarde. If this happens again or pt has any other unusual symptoms or stroke like symptoms, she needs to go to the ER immediately. Since pt is feeling well now and no further issues or other symptoms, per Dr. Velarde, schedule pt an appt on Sunday. Appt given with Kayla Veloz. Reinstructed that pt should go to ER if this happens again. Pt verbalizes understanding. Reason for Disposition [1] Acting confused (e.g., disoriented, slurred speech) AND [2] brief (now gone) Answer Assessment - Initial Assessment Questions 1. LEVEL OF CONSCIOUSNESS: Pt alert and oriented now. States yesterday late afternoon around 330ish, pt had an episode of memory loss and confusion. States went in the sauna around 220 pm an dwas in there for 35 mins. Came out and cooled off then took a shower. She remembers toweling off and towel drying her hair. The next thing she remembered was sitting at her computer. She was dressed and her hair was dry. Patient had no recollection of drying her hair or getting dressed. Talked to a friend in the evening who said she had called pt during that time frame and acted confused on the phone. Pt states does not remember the phone conversation at all. Pt unsure of how long she doesn't have memory of-guessed maybe 15-30 mins. Asked pt about her hair gettting dried and how long it takes to air dry if she didn't blow it dry. Pt guessing 15 mons or so. 2. ONSET: See above 3. PATTERN Only occurred that one time. 4. ALCOHOL or DRUGS:n/a 5. NARCOTIC MEDICINES: n/a 6. CAUSE: Pt wondering if it was because of being in the sauna. But pt goes in the sauna often. 7. OTHER SYMPTOMS: Pt denies any headache, visual disturbances, weakness, numbness or tingling, fever or being ill. States feels fine. Protocols used: Confusion - [id number] [facility] 02-15-2023 History of Present illness Narrative SUBJECTIVE: Hepatitis C Screening Never done Shingrix Vaccine(1 of 2) Never done DTaP,Tdap,Td Vaccine(1 - Tdap) due on 11/22/2004 RSV Vaccine(1 - 1-dose 60+ series) Never done Bone Density Screening Never done Pneumococcal Vaccine: 65+(1 - PCV) Never done Mammogram Screening due on 12/21/2019 Colorectal Cancer Screening due on 12/21/2019 Advance Directive Discussion Never done Depression Assessment Never done Influenza Vaccine(1) Never done Covid-19 Vaccine(2022- season) due on 11/03/2022 Annual PCP Team Chronic Disease Visit due on 11/23/2022 LDL Cholesterol due on 03/13/2023 HPI Moira Suh is a 72 year old female. 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 Moira Suh called about right knee pain and swelling. Reports that she had a rigorous PT work on Sunday and loss of swelling from above her right knee down to her calf and foot. She reported that the physical therapist wanted her to get an ultrasound to check for a clot. She reports right knee replacement in January 02, 2023. Physical therapy notes from today indicate that patient reported throbbing pain in the thigh and calf redness and possible warmth tenderness in the right calf. Without shortness of breath or pain with heavy or deep breathing. PT notes indicate he referred her to urgent care for further workup. States PCP and Dr Ferreira were notified via [employer] message. Today reports that she was at physical therapy on Sunday and was doing increased right knee flexion while in prone position pulling on her foot with a strap when she felt and heard a pop in her right knee. She subsequently noted right lateral knee pain and swelling later that same day which went up her thigh and down her calf to her foot. She notes that pain and swelling is improving. She reports feeling no lump or bump at the right knee, no bruising. No cord erythema or heat reported. She has a follow up orthopedic appointment tomorrow. Wells' Criteria for DVT Based on the most validated set of criteria (Ander 2003) Active Cancer (treatment or palliation within 6 months) No (0) Bedridden recently >3 days or major surgery within 12 weeks YES (+1) Calf swelling >3 cm compared to the other leg No (0) Collateral (nonvaricose) superficial veins No (0) Entire leg swollen No (0) Localized tenderness along the deep venous system No (0) Pitting edema, confined to the symptomatic leg YES (+1) Paralysis, paresis, or recent plaster immobilization of the lower extremity No (0) Previously documented DVT No (0) Alternative diagnosis to DVT as likely or more likely Yes (-2) Wells' Calculated Risk of DVT Low Risk (0) Review of Systems Respiratory: Negative for shortness of breath. Cardiovascular: Positive for leg swelling. Negative for chest pain. Musculoskeletal: Positive for arthralgias. Objective BP 154/87 Pulse 73 Resp 16 Wt 104.3 kg (230 lb) BMI 37.69 kg/m Physical Exam Vitals and nursing note reviewed. Constitutional: Appearance: Normal appearance. HENT: Head: Normocephalic and atraumatic. Eyes: Conjunctiva/sclera: Conjunctivae normal. Cardiovascular: Rate and Rhythm: Normal rate and regular rhythm. Heart sounds: Normal heart sounds. Pulmonary: Effort: Pulmonary effort is normal. Breath sounds: Normal breath sounds. Musculoskeletal: Right lower leg: Edema (scant) present. Left lower leg: Edema (scant) present. Comments: R calf 39cm, L calf 40cm, no cords, no erythema, scant pitting lower extremity edema bilateral Skin: General: Skin is warm and dry. Neurological: Mental Status: She is alert. ALLERGIES Allergen Reactions Atorvastatin Calcium Myalgia Caused severe myalgias to bilateral thighs and across back Codeine Mental Status Change Can hear whats going on around her but she can't wake up Crestor [Rosuvastat* Myalgia 20 mg caused severe myalgias to upper thighs and across back Medication Fluorouracil (EFUDEX) 5 % cream^Apply to affected area twice daily for 2-4 weeks until red, blistering response occurs.^Disp: 40 g^Rfl: 0 metoprolol succinate ER (TOPROL XL) 25 mg 24 hr tablet^Take 1 tablet by mouth once daily.^Disp: 90 tablet^Rfl: 3 (Patient taking differently: Take 25 mg by mouth daily at bedtime.) fanbycn-tdru-rtlas-oreg-capryl 100 mg-150 mg- 50 mg-150 mg cap^Take 1 tablet by mouth twice daily.^Disp: ^Rfl: OmegaGenics EPA-DHA 2400 (High Concentrate EPA/DHA liquid) (LearnSomething)^Take one teaspoon (5 ml) 1 times daily with food^Disp: ^Rfl: (Patient taking differently: Take 5 mL by mouth once daily. Take one teaspoon (5 ml) 1 times daily with food) MAGNESIUM ORAL^Take 135 Units by mouth once daily. Takes 4 capsules daily ^Disp: ^Rfl: ascorbic acid, vitamin C, (VITAMIN C) 500 mg tablet^Take 2,000 mg by mouth once daily.^Disp: ^Rfl: B-Complex Plus (Pure Encapsulations) - 1qD stress/energy/hormones/detox/weigh t loss^Take 1 capsule by mouth once daily.^Disp: ^Rfl: 0 CoQ10, Liposomal Ubiquinol, 200 mg cap^Take 1 capsule by mouth daily with food.^Disp: 120 capsule^Rfl: 2 (Patient taking differently: Take 2 capsules by mouth daily with food.) cholecalciferol (VITAMIN D3) 1,000 unit tab tablet^Take 1,000 Units by mouth once daily.^Disp: ^Rfl: acetaminophen (TYLENOL) 500 mg tablet^Take 2 tablets by mouth every 8 hours as needed for pain.^Disp: 90 tablet^Rfl: 0 aspirin, enteric coated (ASPIRIN, ENTERIC COATED) 81 mg EC tablet^Take 1 tablet by mouth two times a day for 28 days.^Disp: 56 tablet^Rfl: 0 traMADol (ULTRAM) 50 mg tablet^Take 1-2 tablets by mouth every 6 hours as needed for pain.^Disp: 50 tablet^Rfl: 0 (Patient not taking: Reported on 01/17/2023) PAST MEDICAL HISTORY Diagnosis Date Atrial fibrillation (HCC) Coronary artery disease Holter monitor, abnormal extra beats Hypercholesteremia Hyperlipidemia Hypertension Insulin resistance 07/19/2017 Leiomyoma of uterus, unspecified Low HDL (under 40) Social History Tobacco Use Smoking status: Former Packs/day: 1.00 Years: 10.00 Additional pack years: 0.00 Total pack years: 10.00 Types: Cigarettes Smokeless tobacco: Never Vaping Use Vaping Use: Never used Substance Use Topics Alcohol use: Yes Comment: socially Drug use: No ASSESSMENT/PLAN: 1. Pain and swelling of right lower leg - ICD9: 729.5, 729.81, ICD10: M79.661, M79.89 She had right knee surgery at the end of December, now with pain and swelling of the right lower extremity. Will check for DVT today. - LEG VEIN DVT UNL VAS LAB Luli White APRN.CNS Medical Decision Making: Problems: Low: Acute, uncomplicated illness or injury Data: Unique test(s) ordered: 1 Risk: Moderate: Moderate risk from testing/treatment Medical Decision Making Level: 3 - Low documented in this encounter [facility] 02-15-2023 Miscellaneous Notes Right knee replacement 01/02/23. Has been going to PT. Pt states she had a rigorous PT workout on Sunday & she had a lot of swelling from above her right knee, down her calf & foot. States swelling has decreased a lot but is still present. Pt states the therapist in PT wants her to get an US to r/o a clot. Appt was scheduled with CHRISTOPHER White today. Flor Plunkett LPN documented in this encounter [facility] 02-15-2023 History of Present illness Narrative 02/15/23 - 11:25 a.m to 11:50 a.m. Patient completed PHYSICAL THERAPY session on 02/12/23 consisting of Wall Flexion Bends, Prone Knee AAROM Pulls w/ Strap, Hamstring and Calf Stretching and Seated Biking - during prone R knee bends patient did have a audible pop in the R Knee that caused pain initially but subsided before the end of session. Today (02/15/23), patient arrives to PHYSICAL THERAPY session with reports of heavy swelling following last session in and above the R Knee and proximal lateral calf; states I couldn't move, literally. Since then patient reports swelling has decreased. When collecting a subjective report and screening for signs/symptoms of a DVT, patient MET the criteria for swelling in the involved lower extremity proximally and distally to the Knee, reported throbbing pain in the thigh and calf, reported redness & possible warmth, tenderness in the R Calf. She denied SOB or pain with heavy/deep breathing. Objectively, patient had swelling in the R calf, foot & above the knee, tenderness in the R calf. Warmth felt the same when compared bilaterally and there was not a distinct asymmetrical color in the involved leg when compared Bilaterally. Deferred completing any exercises today due to possible DVT. Patient was sent from PHYSICAL THERAPY appointment to urgent care for precautionary measures of possible DVT workup. Dr. Chance and Dr. Ferreira were notified about the patient via [employer] message. Rikki Tomas PT documented in this encounter [facility] 02-12-2023 History of Present illness Narrative Episode Visit Count: 7 Therapist That Will Accept/Oversee The Plan Of Care: Rikki Tomas PT. Start of Care Date: 01/22/23 Onset Date: 01/02/23 Plan of Care Certification Date: 01/22/23 Next Certification Due Date: 02/26/23 Patient Identified by Name and Date of : Yes REHABILITATION AND SPORTS THERAPY PHYSICAL THERAPY TREATMENT NOTE ASSESSMENT: Moira Suh tolerated the session with expected muscle soreness. She demonstrated difficulty with Knee Flexion Motion due to posterior lateral knee/HS catching - better with therapist inhibiting the muscle. The patient will continue to benefit from ongoing skilled physical therapy to progress toward set goals and to continue with post-operative protocol. PLAN FOR NEXT VISIT: Progress Check; R Knee Flexion & Extension Mobs; Knee Flexion and Extension AROM/AAROM/PROM. SUBJECTIVE: Patient reports continued catching in the posterior R Knee/Hamstrings being a big hinderance currently. Reports next day after completing HEP she has a lot of soreness/pain. Pain: Pain Pain Level: 0 Pain Location: Knee - Right Post Treatment Pain Post Treatment Pain Location: Knee - Right Post Treatment Pain Description: Sore OBJECTIVE MEASURES WITH LEVEL OF FUNCTION: Patient with a light pop in anterior knee with R Prone Flexion pulls - reports slight pain with the audible pop that quickly dissipated. TREATMENT: Therapeutic Exercise: 1: Seated Biking Rockers: 6 Minutes, Seat 10, Foot Level Three. (Direct 1:1 contact and subjective taken.) 2: Trialed Upright Stationary Bike: Able to complete rockers for 2 minutes, unable to tolerate longer. (Patient reports she didn't have enough control when going into further flexion.) 3: Wall RLE Knee Flexion Slides: 2x15. 4: Prone RLE Knee Flexion Pulls: 1x10, 1-2 hold. 5: *Seated R HS Stretch: 4x30. 6: R Prostretch: 3x30 7: *Discussion regarding current deficits and limitations revolving around knee flexion. 8: *Discussion about parameters of HEP. Skilled Intervention: Patient was educated in proper exercise technique and purpose for exercises. Skilled judgment was used in selection of appropriate interventions. Correct performance of therapeutic exercises was facilitated with verbal, visual, and tactile cuing. Patient education as noted. Manual Therapy: 1: IaSTM to R Biceps Femoris Tendon: Push to tolerance. Skilled Intervention: Manual skills to improve joint mobility, ROM, and decrease pain. Utilized anatomy knowledge of the therapist, and assessment of patient's response to intervention. Billing Therapeutic Exercise Treatment Minutes: 38 Manual TherapyTreatment Minutes: 7 Skilled Treatment Time Minutes (timed and untimed codes): 45 Total Session Time (minutes): 45 Session Start Time : 1415 Session Stop Time : 1500 Rikki Tomas PT documented in this encounter [facility] 02-09-2023 History of Present illness Narrative Program_ID:[id number] Access Code: [email or web address] URL: [email or web address] Date: 02-09-2023 Prepared By: Rikki Tomas Program Notes 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 - Day 1 OP PT. Exercises - Sidelying Hip Abduction - 2 x daily - 7 x weekly - 2 sets - 10 reps - Standing Hip Flexion with Counter Support - 2 x daily - 7 x weekly - 2 sets - 10 reps - Sit to Stand - 2 x daily - 7 x weekly - 2 sets - 8-12 reps - Supine Hip ABDuction with Resistance - 1-2 x daily - 7 x weekly - 2 sets - 10 reps - Standing Weight Shift - 2 x daily - 7 x weekly - 2 sets - 10 reps - Standing Single Leg Stance with Counter Support - 2 x daily - 7 x weekly - 2-3 sets - 5 reps Episode Visit Count: 6 Therapist That Will Accept/Oversee The Plan Of Care: Rikki Tomas PT. Start of Care Date: 01/22/23 Onset Date: 01/02/23 Plan of Care Certification Date: 01/22/23 Next Certification Due Date: 02/26/23 Patient Identified by Name and Date of : Yes REHABILITATION AND SPORTS THERAPY PHYSICAL THERAPY TREATMENT NOTE ASSESSMENT: Moira Suh tolerated the session with expected muscle soreness. She demonstrated improvements in gait unassisted following cues. The patient will continue to benefit from ongoing skilled physical therapy to progress toward set goals and to continue with post-operative protocol. PLAN FOR NEXT VISIT: Knee Flexion & Extension Motion; Gross Quad and Glute Strengthening. SUBJECTIVE: Patient reports continually locking in the R Posterior-Lateral Knee with descending to a seat or intermittently bending the leg. Pt. states the stiffness & discomofrt in the R knee and the feeling of it the knee wasn't hers has been better this week. Notes sitting in the car without discomfort recently. Pain: Pain Pain Level: 0 Pain Location: Knee - Right Post Treatment Pain Post Treatment Pain Location: Knee - Right Post Treatment Pain Description: Sore OBJECTIVE MEASURES WITH LEVEL OF FUNCTION: Tenderness in R distal biceps femoris tendon. TREATMENT: Therapeutic Exercise: 1: Seated Biking Rockers: 6 Minutes, Seat 11, Foot Level Three. (Direct 1:1 contact and subjective taken.) 2: Forward Step-Ups: 2x10, Blue+Green Box. 3: Lateral Step-Ups: 2x12, Blue Box. 4: R Hip Flexor Lifts: 2x12, Green Box. 5: R Stair HS Stretch: 3x30 6: R Prostretch: 3x30 7: *Weight Shifts to RLE: 1x10, 2-3 hold. 8: *R SLS: 1x5, 5-10. Skilled Intervention: Patient was educated in proper exercise technique and purpose for exercises. Reviewed and educated patient on additions/changes for home exercise program as above (*). Skilled judgment was used in selection of appropriate interventions. Provided written instruction for home exercise program to facilitate proper performance and compliance. Correct performance of therapeutic exercises was facilitated with verbal, visual, and tactile cuing. Manual Therapy: 1: IaSTM to R Biceps Femoris Tendon: Push to tolerance. Skilled Intervention: Manual skills to improve joint mobility, ROM, and decrease pain. Utilized anatomy knowledge of the therapist, and assessment of patient's response to intervention. Billing Therapeutic Exercise Treatment Minutes: 38 Skilled Treatment Time Minutes (timed and untimed codes): 5 Total Session Time (minutes): 43 Session Start Time : 1302 Session Stop Time : 1345 Rikki Tomas PT documented in this encounter [facility] 02-08-2023 Instructions Isatu Smith PA-C - 02/08/2023 3:23 PM EST Images from the original note were not included. [place] [id number] SKIN CARE AFTER CRYOSURGERY The skin's response to cryosurgery (freezing) can be mild to more severe, depending on the depth of the freeze and the location of the area treated. You may have only mild redness and swelling with a little discomfort of significant discoloration and blistering with considerable discomfort. A burning sensation in the skin may last from several minutes to several hours after the procedure. Follow these instructions when caring for an area treated by cryosurgery: MINOR RESPONSE: 1. The area may sting or burn for a short time after treatment. 2. The treated area will be red in color at first then turn brown and flaky as it heals and the upper layer of skin sloughs off. 3. Gently cleanse the area with gentle soap and water. Pat dry and apply a thin film of Vaseline ointment. Do this at least once a day to prevent infection. MAJOR RESPONSE: 1. Follow instructions as stated for minor response. 2. The area may sting and burn for several hours after treatment. 3. To relieve throbbing and pain, elevate the treatment area. 4. Acetaminophen (Tylenol) may be taken every 3 to 4 hours for discomfort. 5. A blister may form in the area of freezing. It may be filled with clear fluid or blood. This response is not unusual. 6. Do not break the blister unless it becomes uncomfortable. You may prick the blister with a sterile needle or pin to remove the fluid. Leave the skin intact. 7. If a blister has formed, apply Vaseline to wound twice daily while healing. 8. All treated areas usually heal within 3 to 4 weeks. If you have problems or questions, please call [facility], Department of Dermatology, at [phone]. documented in this encounter [facility] 02-08-2023 History of Present illness Narrative Moira Suh is a 72 year old female who presents today for Patient presents with: LESION, SKIN Current Treatment: none Past Treatment: none History of nonmelanoma skin cancer: none History of Melanoma: none Family history of skin cancer: none Dermatology History: Specialty Problems Dermatology Problems Dry skin Hair loss Allergies: Atorvastatin Calcium, Codeine, and Crestor [Rosuvastatin Calcium] Past Medical History: PAST MEDICAL HISTORY Diagnosis Date Atrial fibrillation (HCC) Coronary artery disease Holter monitor, abnormal extra beats Hypercholesteremia Hyperlipidemia Hypertension Insulin resistance 07/19/2017 Leiomyoma of uterus, unspecified Low HDL (under 40) MEDS: Current Outpatient Medications on File Prior to Visit Medication Sig metoprolol succinate ER (TOPROL XL) 25 mg 24 hr tablet Take 1 tablet by mouth once daily. (Patient taking differently: Take 25 mg by mouth daily at bedtime.) knunoyz-zgqx-eeikt-oreg-capryl 100 mg-150 mg- 50 mg-150 mg cap Take 1 tablet by mouth twice daily. [employer] EPA-DHA 2400 (High Concentrate EPA/DHA liquid) (LearnSomething) Take one teaspoon (5 ml) 1 times daily with food (Patient taking differently: Take 5 mL by mouth once daily. Take one teaspoon (5 ml) 1 times daily with food) MAGNESIUM ORAL Take 135 Units by mouth once daily. Takes 4 capsules daily ascorbic acid, vitamin C, (VITAMIN C) 500 mg tablet Take 2,000 mg by mouth once daily. B-Complex Plus (Pure Encapsulations) - 1qD stress/energy/hormones/detox/weigh t loss Take 1 capsule by mouth once daily. CoQ10, Liposomal Ubiquinol, 200 mg cap Take 1 capsule by mouth daily with food. (Patient taking differently: Take 2 capsules by mouth daily with food.) cholecalciferol (VITAMIN D3) 1,000 unit tab tablet Take 1,000 Units by mouth once daily. acetaminophen (TYLENOL) 500 mg tablet Take 2 tablets by mouth every 8 hours as needed for pain. aspirin, enteric coated (ASPIRIN, ENTERIC COATED) 81 mg EC tablet Take 1 tablet by mouth two times a day for 28 days. traMADol (ULTRAM) 50 mg tablet Take 1-2 tablets by mouth every 6 hours as needed for pain. (Patient not taking: Reported on 01/17/2023) Current Facility-Administered Medications on File Prior to Visit Medication perflutren lipid microspheres 1.3 mL in NaCl (PF) 0.9% 10 mL injection (DEFINITY) sodium chloride 0.9 % (flush) 10 mL (BD POSIFLUSH) Review of systems Has trouble healing No Bleeds excessively No Has tendency to form hypertropic scars and keloids No Develops contact dermatitis to bandages and tapes No Develops contact dermatitis to antibiotic ointments No Enlarged lymph nodes No Is immunosuppressed No Has difficulty with systemic antibiotics No Has prosthetic joint replacement Yes: right knee Has pacemaker / defibrillator No Takes aspirin / anticoagulant daily No Has valve disorders No Other problems elsewhere on skin No Amber Zhang Ma The above was entered by the nursing staff. I have reviewed the documentation and I concur. Isatu JO HPI: Chief Complaint Skin lesions Location Nose, bridge and right tip Duration months Timing constant Severity mild Quality Red lesions Modifying Factors: Hx of sun exposure Fair Physical Exam - Area(s) Examined: No images are attached to the encounter. The pt is alert and oriented, in NAD. Skin examination of head/face was significant for: Items identified on Diagram above Dorsum of Nose, Left Upper Cutaneous Lip, Right Upper Cutaneous Lip Red papules with gritty adherent scale. Assessment / Plan: (L57.0) AK (actinic keratosis) (primary encounter diagnosis) Comment: exam as above Plan: Discussed natural history/natural course of AKs Reviewed R/B/A of each treatment option in detail Pt opts for Fluorouracil (EFUDEX) 5 % cream R/b/a for the medication(s) including possible side effects discussed and reviewed with patient. By signing my name below, I, Amber Zhang Ma, attest that this documentation has been prepared under the direction and in the presence of Isatu JO. Electronically Signed: Rob Odom Maibe. February 08, 2023 2:44 PM. I, Isatu JO, personally performed the services described in this documentation. All medical record entries made by the scribe were at my direction and in my presence. I have reviewed the chart and discharge instructions (if applicable) and agree that the record reflects my personal performance and is accurate and complete. Electronically Signed: Isatu JO February 08, 2023 3:07 PM. Patient to return to clinic in 3 months for follow-up re-evaluation Patient to contact office as needed with questions/concerns, unimproved or worsening of symptoms Isatu Smith PA-C Addendum: Pt decided she wanted to proceed with cryotherapy to AKs of upper lips Liquid nitrogen treatment x3 We discussed liquid nitrogen treatment and the expected redness, as well as the risks of swelling, blistering, crusting, hypopigmentation and scarring. The patient verbalized understanding. The lesions are treated with liquid nitrogen cryostat spray gun with two 10-15 second freeze-thaw cycles. The patient tolerated this well. Wound care discussed. documented in this encounter [facility] 02-06-2023 History of Present illness Narrative Program_ID:[id number] Access Code: [email or web address] URL: [email or web address] Date: 02-06-2023 Prepared By: Rikki Tomas Program Notes 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 - Day 1 OP PT. Exercises - Sidelying Hip Abduction - 2 x daily - 7 x weekly - 2 - 10 - Standing Hip Flexion with Counter Support - 2 x daily - 7 x weekly - 2 - 10 - Sit to Stand - 2 x daily - 7 x weekly - 2 - 8-12 - Supine Hip ABDuction with Resistance - 1-2 x daily - 7 x weekly - 2 - 10 Episode Visit Count: 5 Therapist That Will Accept/Oversee The Plan Of Care: Rikki Tomas PT. Start of Care Date: 01/22/23 Onset Date: 01/02/23 Plan of Care Certification Date: 01/22/23 Next Certification Due Date: 02/26/23 Patient Identified by Name and Date of : Yes REHABILITATION AND SPORTS THERAPY PHYSICAL THERAPY TREATMENT NOTE ASSESSMENT: Moira Suh tolerated the session with expected muscle soreness. She demonstrated difficulty with hmk-zd-mhqhyl without upper extremity support. The patient will continue to benefit from ongoing skilled physical therapy to progress toward set goals and to continue with post-operative protocol. PLAN FOR NEXT VISIT: Progress R Knee Flexion; glute and quad strengthening, work on squatting. SUBJECTIVE: Patient reports when bending the R Knee, hamstring guarding/spasm, not letting her go further. States inability to to overall get comfortable with the R Knee. Pain: Pain Pain Level: 0 Pain Location: Knee - Right Post Treatment Pain Post Treatment Pain Location: Knee - Right Post Treatment Pain Description: Sore OBJECTIVE MEASURES WITH LEVEL OF FUNCTION: Patient unable to complete TKA due to pain in the R medial knee. TREATMENT: Therapeutic Exercise: 1: Seated Biking Rockers: 6 Minutes, Seat 11, Foot Level Three. (Direct 1:1 contact and subjective taken.) 2: Forward Step-Ups: 2x10, Blue Box. 3: Lateral Step-Ups: 2x10, Green Box. 4: *Standing R Hip FLexion: 2x15. 5: Standing R Hip ABD: 2x15. 6: R Stair HS Stretch: 3x30 7: *Seated Hip ABD: 1x15, 5-sec holds, GTB. 8: *L S/L RLE ABD: 2x10. 9: *Kqz-xm-uahgbp: 1x5, GTB around knees. Skilled Intervention: Patient was educated in proper exercise technique and purpose for exercises. Reviewed and educated patient on additions/changes for home exercise program as above (*). Skilled judgment was used in selection of appropriate interventions. Provided written instruction for home exercise program to facilitate proper performance and compliance. Correct performance of therapeutic exercises was facilitated with verbal, visual, and tactile cuing. Billing Therapeutic Exercise Treatment Minutes: 44 Skilled Treatment Time Minutes (timed and untimed codes): 44 Total Session Time (minutes): 44 Session Start Time : 1446 Session Stop Time : 1530 Rikki Tomas PT documented in this encounter [facility] 02-01-2023 History of Present illness Narrative Episode Visit Count: 4 Therapist That Will Accept/Oversee The Plan Of Care: Rikki Tomas PT. Start of Care Date: 01/22/23 Onset Date: 01/02/23 Plan of Care Certification Date: 01/22/23 Next Certification Due Date: 02/26/23 Patient Identified by Name and Date of : Yes REHABILITATION AND SPORTS THERAPY PHYSICAL THERAPY TREATMENT NOTE ASSESSMENT: Moira [place] tolerated the session with expected muscle soreness. She demonstrated difficulty with R Knee Flexion AROM/AAROM this date. The patient will continue to benefit from ongoing skilled physical therapy to progress toward set goals and to continue with post-operative protocol. PLAN FOR NEXT VISIT: Send more home for HEP; TKE and val-lh-klhair; progress ther-ex as tolerable. SUBJECTIVE: Pt. reports only slight swelling at night following the last session; felt good leaving the clinic the last session. Pain: Pain Pain Level: 0 Pain Location: Knee - Right Post Treatment Pain Post Treatment Pain Location: Knee - Right Post Treatment Pain Description: Sore OBJECTIVE MEASURES WITH LEVEL OF FUNCTION: LE AROM R Knee Extension: -1 Degrees R Knee Flexion: 94 Degrees LE PROM R Knee Extension: 0 Degrees R Knee Flexion: 98 Degrees TREATMENT: Therapeutic Exercise: 1: Sci-Fit: 6 Minutes. Seat 14. (Direct 1:1 contact and subjective taken and HEP assessment.) 2: Forward Step-Ups: 2x10, Blue Box. 3: Lateral Step-Ups: 2x10, Green Box. 4: R Prostretch: 3x30 5: R Knee Flexion Step AAROM: 2x10, 1-2 hold. 6: Union Assisted Supine Knee Ext Hold: 4# weight 3 min 7: Supine R Heel Slide: 1x15, 1-sec holds. On Slide Board. 8: *Education on proper rest/recovery inbetween exercises during completion; educated on importance of following exact parameters prescribed. Skilled Intervention: Patient was educated in proper exercise technique and purpose for exercises. Skilled judgment was used in selection of appropriate interventions. Correct performance of therapeutic exercises was facilitated with verbal, visual, and tactile cuing. Patient education as noted. Manual Therapy: 1: Manual knee flexion PROM overpressure in sittinx15, 3-5 hold. Skilled Intervention: Manual skills to improve joint mobility, ROM, and decrease pain. Utilized anatomy knowledge of the therapist, and assessment of patient's response to intervention. Billing Therapeutic Exercise Treatment Minutes: 38 Manual TherapyTreatment Minutes: 5 Skilled Treatment Time Minutes (timed and untimed codes): 43 Total Session Time (minutes): 43 Session Start Time : 153 Session Stop Time : 162 Rikki Tomas PT documented in this encounter [facility] 11-22-2023 History of Present illness Narrative Episode Visit Count: 2 Therapist That Will Accept/Oversee The Plan Of Care: Rikki Tomas PT. Start of Care Date: 01/22/23 Onset Date: 01/02/23 Plan of Care Certification Date: 01/22/23 Next Certification Due Date: 02/26/23 Patient Identified by Name and Date of : Yes REHABILITATION AND SPORTS THERAPY PHYSICAL THERAPY TREATMENT NOTE ASSESSMENT: Moira Suh tolerated the session with expected muscle soreness. She demonstrated improvements in Knee motion throughout the session. The patient will continue to benefit from ongoing skilled physical therapy to progress toward set goals and to continue with post-operative protocol. PLAN FOR NEXT VISIT: Knee Flexion and Extension AROM/AAROM/PROM; return to quad strengthening and progress ther-ex as able. SUBJECTIVE: Patient reports no pain today; states it bothers her to sit with her legs down; following last session she states she was pain-free overall and had a really good night. Patient reports the pain distal knee to the anterior mid-shaft bingham has been less frequent and intense since last visit. Pain: Pain Pain Level: 0 Pain Location: Knee - Right Post Treatment Pain Post Treatment Pain Level: Better Post Treatment Pain Description: Sore OBJECTIVE MEASURES WITH LEVEL OF FUNCTION: LE AROM R Knee Extension: -2 Degrees R Knee Flexion: 91 Degrees TREATMENT: Therapeutic Exercise: 1: Sci-Fit: 5 Minutes. Seat 14. (Direct 1:1 contact and subjective taken and HEP assessment.) 2: R Quad sets 2x10, 5 sec holds. 3: Union Assisted Supine Knee Ext Hold: 4# weight 3.5min 4: Longsitting R Heel Slides w/ Strap: 3x10. 3-sec holds. 5: Supine R heel slides 3x15, 1-sec holds. Skilled Intervention: Patient was educated in proper exercise technique and purpose for exercises. Reviewed and educated patient on additions/changes for home exercise program as above (*). Skilled judgment was used in selection of appropriate interventions. Provided written instruction for home exercise program to facilitate proper performance and compliance. Correct performance of therapeutic exercises was facilitated with verbal, visual, and tactile cuing. Manual Therapy: 1: Manual knee flexion PROM overpressure in sittinx10 w/ 3-5 sec hold. 2: Anterior & Posterior Tibial Translations to patient tolerance. (Used to promote knee flexion/extension) Skilled Intervention: Manual skills to improve joint mobility, ROM, and decrease pain. Utilized anatomy knowledge of the therapist, and assessment of patient's response to intervention. Billing Therapeutic Exercise Treatment Minutes: 32 Manual TherapyTreatment Minutes: 8 Skilled Treatment Time Minutes (timed and untimed codes): 40 Total Session Time (minutes): 40 Session Start Time : 1030 Session Stop Time : 1110 Rikki Tomas PT documented in this encounter [facility] 01-22-2023 History of Present illness Narrative Program_ID:[id number] Access Code: [email or web address] URL: [email or web address] Date: 01-22-2023 Prepared By: Rikki Tomas Program Notes 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 - Day 1 OP PT. Exercises - Long Sitting Quad Set with Towel Roll Under Heel - 2 x daily - 7 x weekly - 2-3 - 10-20 - Supine Heel Slide with Strap - 2 x daily - 7 x weekly - 2-3 - 10-20 - Seated Passive Knee Extension with Weight - 1-2 x daily - 7 x weekly - 1-2 - - Active Straight Leg Raise with Quad Set - 2 x daily - 7 x weekly - 2-3 - 10 - Supine Short Arc Quad - 2 x daily - 7 x weekly - 2-3 - 10 - Seated Long Arc Quad - 2 x daily - 7 x weekly - 2-3 - 10 Episode Visit Count: 1 Therapist That Will Accept/Oversee The Plan Of Care: Rkiki Tomas PT. Start of Care Date: 01/22/23 Onset Date: 01/02/23 Plan of Care Certification Date: 01/22/23 Next Certification Due Date: 02/26/23 Patient Identified by Name and Date of : Yes REHABILITATION AND SPORTS THERAPY PHYSICAL THERAPY EVALUATION PLAN OF CARE: Assessment: Moira Suh presents with diagnosis of 20 days post-op robotic-assisted R TKA with Dr. Ferreira on 01/02/23 that interferes with walking, walking in the community, rising from a chair, physical activities, recreational activities, sleeping . She presents with impairments in ADL's, balance, gait, independence in exercise, joint mobility, overall function, range of motion, soft tissue healing, strength, and symptom management. Patient did not complete the PROMIS (Patient Reported Outcome Measures Information System). Prognosis for therapy is Excellent due to: current objective clinical presentation, acuteness of condition, within-session changes, good support system/ coping skills .She will benefit from skilled therapy services to meet the goals established for this plan of care as noted below. Goals for Episode of Care: created on 01/22/23 through 04/16/23 [place] in home exercise program. Patient will decrease pain rating by 2 points to meet minimal clinical important difference for numeric pain rating scale. Patient will increase active ROM of R knee to 0-120 degrees to allow the patient to improve walking in the community as well as performance of ADLs/IADLs. Patient will demonstrate increase in RLE strength to 5/5 during manual muscle testing in order to improve function for basic self-care tasks, home management tasks, leisure/recreation skills, and prior functional tasks. Gait unassisted with better mechanics and increased quad control and decreased report of symptoms/pain in 8 weeks. Normal gait. Patient will report complete return to prior level of function without limitations from the R Knee. Patient Goals: PLOF with limitation or pain. Planned Interventions, Frequency, and Duration: Current Frequency: 2x/week Duration: 5 weeks Total Number of Visits Planned: 10 Planned Treatment Interventions: Therapeutic exercise (14743), Neuromuscular re-education (81873), Therapeutic activities (48515), Manual therapy (54730), Self-detention management (29382), Gait Training (28146), Patient/Family/Caregiver Education, Body Mechanics Training PLAN FOR NEXT VISIT: Knee Flexion and Extension AROM/AAROM/PROM; quad strengthening. Patient demonstrates good understanding of plan of care and treatment. The above goals and plan of care were discussed and agreed upon by patient/family. SUBJECTIVE: Patient 20-days post-op R TKA with Jhon An on 01/02/23; had post-op follow-up last week with Isidro Carranza PA-C and he indicated normal post-op stage of recovery; discharged from home health PT on 12/19/22, most flexion she achieved was 94 degrees. Patient on FWW currently, states the L Knee is actually worse than the R/Surgical Knee and she plans to have a TKA on the LLE in May 2023. Patient complains today about pain in the R Anterior Knee, describes it as hot & electrical/shock from the distal knee to the anterior mid-shaft bingham. Patient reports it came on about 5 days ago, and it hurts continuously, when she walks on it the pain is worse. Denies pain/swelling/tenderness in the calves, no heavy ache/throb, warm or red skin. Patient Goals: PLOF with limitation or pain. Functional Limitations: walking, walking in the community, rising from a chair, physical activities, recreational activities, sleeping Prior Level of Function: Independent without limitations Relevant History Employment: Retired Intake Information: Prescription present Previous Treatment: NSAIDs , Ice Falls Interview: No positive findings with falls interview Pain: Pain Pain Level: 4 Pain Location: Knee - Right (Distal Knee to Mid Shaft of Tibia, more medial.) Description: (Electrial/Shock, worse than tingling.) Frequency: Continuous Post Treatment Pain Post Treatment Pain Level: Better Post Treatment Pain Description: Sore Post Treatment Symptoms: Patient not having the electrical pain on the anterior bingham at the end of session, like she was when sitting during subjective part of evaluation. PROMIS Scales T-scores: mean of general population = 50. 5 points is clinically meaningfully difference Percentiles provide an indication of how the patient's score ranks in relation to the general population. Higher percentile rankings indicate better function/quality of life. 50th percentile is the average of the general population and indicates half of respondents had a worse score. OBJECTIVE MEASURES WITH LEVEL OF FUNCTION: Knee Observations R Knee Presents with: Swelling, Incision R Incision: Well-approximated, no drainage. LE AROM R Knee Extension: -3 Degrees R Knee Flexion: 90 Degrees L Knee Flexion: 120 Degrees LE PROM R Knee Extension: -1 Degrees R Knee Flexion: 96 Degrees LE Strength R LE Strength: Not objectively assessed this date due to acuteness of post-op status. Will formally reassess when appropriate with handheld dynamometer for B quad & HS. L LE Strength: Grossly 4+/5 Gait Weight Bearing Status: FWB Gait: Independent Gait Device: Wheeled Walker Gait Deviations: General Deviations General Deviations/Observations: Jennie decreased, Antalgic gait Education: Education Learning/educational needs: Procedure / Surgery, Health promotion, Safety, Home exercise program, Plan of Care, Changes in Plan of Care, Gait Training TREATMENT: PT Treatment Interventions: Therapeutic Exercise Evaluation Therapeutic Exercise: 1: *R Quad sets 2x10, 5 sec holds. 2: *Supine R heel slides 2x10, 1-sec holds. 3: *Union Assisted Supine Knee Ext Hold: 3# weight 4min 4: *R SAQ: 1x12. 5: *R LAQ: 1x12. 6: *R SLR: 1x12. (Quad Lag Demonstrated.) 7: *Seated R Knee Flexion Slides/AROM: 1x10. 8: *Direct discussion and education to the patient on therapy goals, exam findings, plan of care, prognosis, HEP and importance of exercises in helping patient reach her goals. Education on bump in the plan due to recent onset of pain in the anterior lower leg and decreased motion - advised patient that we will be regressing exercises that she has been completing and focus joint mobility and motion and quad strength. Education on PTs goals for her and objective measures hopeful to obtain. Advised patient to only complete exercises given to her at this appt moving forward. 9: *Advised patient to reach out to surgical team and let them know of recent symptoms she has been experiencing. Skilled Intervention: Patient was educated in proper exercise technique and purpose for exercises. Reviewed and educated patient on additions/changes for home exercise program as above (*). Skilled judgment was used in selection of appropriate interventions. Provided written instruction for home exercise program to facilitate proper performance and compliance. Correct performance of therapeutic exercises was facilitated with verbal, visual, and tactile cuing. Patient education as noted. Billing * Evaluation Low Complexity: 1 Unit Therapeutic Exercise Treatment Minutes: 25 Skilled Treatment Time Minutes (timed and untimed codes): 40 Total Session Time (minutes): 40 Session Start Time : 1154 Session Stop Time : 1234 Rikki Tomas PT documented in this encounter [facility] 01-19-2023 Miscellaneous Notes SITUATION: spouse present during today's visit. patient reports the following since the last homecare visit: medications/allergies--no changes, no fall. patient reports that her pain is very little today , mostly nerve pain down the [place] BACKGROUND: Diagnoses (reason for Home Care): RTKR Weight Bearing/Precaution Changes: no changes ASSESSMENT: Focus of visit: reassessment /discharge Physical therapy discharged: goals achieved. Functional performance at discharge - bed mobility independent, transfers independent, ambulation independent and stairs independent. PROM R knee 5-85 ( pt was at 94* yesterdat ) Plan of care, goals, and discharge reviewed and agreed upon with patient and/or caregiver. RECOMMENDATION: Patient discharged from home health services. Instructions to include:begin outpatient therapy on 01/22/23 See intervention summary for intervention/education details. documented in this encounter [facility] 01-18-2023 Miscellaneous Notes SITUATION: spouse present during today's visit. patient reports the following since the last homecare visit: medications/allergies--no changes, no fall. patient reports was very pleased w/ healing of R knee and told her her left knee is very worn out and he wants her to use ww until she gets other knee replaced to decrease fall risk. . BACKGROUND: Diagnoses (reason for Home Care): RTKR Weight Bearing/Precaution Changes: no changes ASSESSMENT: Focus of visit performed standing rom and strength exercises for HEP. Patient has good understanding. Better tolerenvce to seated heel sloides today. AAROM 5-94. Plan of care, goals, and visit frequency reviewed and agreed upon with patient and/or caregiver. Current Discharge Plan: outpatient rehab Anticipate discharge by 06/19/22 RECOMMENDATION: Next visit to focus on PT to see for DC See intervention summary for intervention/education details. documented in this encounter [facility] 01-17-2023 History of Present illness Narrative Post-op Office Visit Moira Suh 72 year old January 17, 2023 11:06 AM Surgery Date: 01/02/2023 History: Moira Suh is now 2 weeks out from robotic assisted right TKA. Post-operative course has been without complication. No readmissions. The patient was discharged from [facility] to home with home health care on 01/03/2023. Subjective: Patient reports 2/10 pain. Overall is doing well. Using walker ambulatory aid. Not taking any opioid pain medication. Patients rates her condition as improving. Reports compliance with DVT ppx. Participating in home PT. Objective: Right knee: Ambulates with walker Incision well-approximated, no drainage, well-healing. Suture tails trimmed today. Knee ROM 5 - 90 degrees Distally DP/PT palpable Distally SILT S/S/SP/DP/T intact at baseline Distally DF/PF motor intact at baseline Negative vignesh/calf tenderness Xrays: Well-positioned total knee replacement in appropriate alignment with no evidence of loosening Assessment and Plan: 72 year old female 2 weeks status post robotic assisted right total knee arthroplasty at normal post operative stage of recovery - continue ice, rest, and use of non-narcotic analgesia as needed - reviewed antibiotic prophylactic protocols - discussed home exercises and therapy - continue ASA DVT prophylaxis for 4 weeks total - WBAT on operative extremity - discussed driving requirement: 6 weeks post-op, off narcotic pain medication, adequate brake time - follow up in 4 weeks for repeat clinical evaluation with Dr. Ferreira Normal post-operative course discussed with patient. Patient reassured and supported. All questions answered. Isidro Carranza PA-C documented in this encounter [facility] 01-17-2023 History of Present illness Narrative Radiology Service Progress Note PATIENT NAME: Moira Suh DATE OF SERVICE: January 17, 2023 TIME: 11:39 AM PATIENT IDENTITY VERIFICATION COMPLETED USING TWO (2) IDENTIFIERS: Name and Date of confirmed by patient verbally and Name and Date of confirmed by identification band. FALL SCREENING: Has the patient had 2 falls in the last year or 1 fall with injury or currently using an Ambulatory Assistive Device (Walker, Cane, Wheelchair, Crutches, etc.)? No PATIENT GENDER DATA: Female. status: : No status: NO. PATIENT RELEVANT IMPLANT DATA REVIEWED: Not Applicable RADIOLOGY DEPARTMENT: General X-ray: Exam(s) Completed: Lower Extremity X-Ray(s): Knee, AP / Lat / Merchant Right and Wt. Bearing PERIPHERAL IV DATA: Not applicable SIGNED BY: RT Jesus(R) January 17, 2023 11:39 AM documented in this encounter [facility] 01-15-2023 Miscellaneous Notes SITUATION: spouse present during today's visit. patient reports the following since the last homecare visit: medications/allergies--no changes, no fall. patient reports she really feels like she is not doing as good as she should be. States the stretches really hurt and she feels stuck when she does them.. BACKGROUND: Diagnoses (reason for Home Care): RTKR Weight Bearing/Precaution Changes: no changes ASSESSMENT: Focus of visit Issued NOMNC. modified seated heel slides to seated position(SKTC) w/ towel which patient was better able to tolerate. Gait training w/ cane. PROM 5-90 Discussed pain management due to patient not wanting to take anything for pain.Agrees that she may need to take at least tylenol to be able to tolerate her PT Plan of care, goals, and visit frequency reviewed and agreed upon with patient and/or caregiver. Current Discharge Plan: outpatient rehab Anticipate discharge by 12/19/22 RECOMMENDATION: Next visit to focus on ROM cane training See intervention summary for intervention/education details. documented in this encounter [facility] 01-10-2023 Miscellaneous Notes SITUATION: spouse present during today's visit. patient reports the following since the last homecare visit: medications/allergies--no changes, no fall. patient reports she had a horrible day yesterday. States thigh was so sore I couldnt lift my leg. Better today but still sore . BACKGROUND: Diagnoses (reason for Home Care): TKR R Weight Bearing/Precaution Changes: no changes ASSESSMENT: Focus of visit performed and progressed strength and ROm exercises for HEP. Gait training w/ww w/ focus on heel to toe pattern. Recommended patient to continue w/ ice and elevation after exercises. AAROM 0-90 Plan of care, goals, and visit frequency reviewed and agreed upon with patient and/or caregiver. Current Discharge Plan: outpatient rehab Anticipate discharge by 02/21/23 RECOMMENDATION: Next visit to focus on add standing hip/knee flexion See intervention summary for intervention/education details. documented in this encounter [facility] 01-04-2023 Miscellaneous Notes SITUATION: Only present during today's visit. Spouse in another room and did not participate. patient reports that she had no pain while inpatient and now has 5/10 pain. It was a 10 last night and I was up every 30 minutes. She states that the ice machine was not working. Pain level still high, but tolerable per patient. Would like to go to outpatient PT in the [place] area. Patient states that [facility] will also need a LTKR in the near future. 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 Progression to cane at therapist discretion. Exercises: AROM: yes, encouraged AAROM: yes PROM: yes, aggressive as tolerated Contract/Relax: yes Resistive: yes at 3-4 weeks but prefer closed chain functional exercises (hams 10 pound limit, quads 10-15 pound limit) Closed Chain: yes Raised Seat Stationary Bike: yes at 3-4 weeks as tolerated Prone lying to promote extension: yes Standing exercises: yes Additional Information: Patellar Mobilization: yes Scar Mobilization: yes, okay at 4-6 weeks postop CPM: only with contractures or manipulations Rolling: as tolerated, operative and non-operative side Neuro Muscular E-Stim Quads: yes, after 4 weeks postop, prn You may remove your dressing on POD #7-10 (7 to 10 days after surgery). ASSESSMENT: Patient evaluated by [facility] physical therapy. Reviewed and explained homecare services. Plan of care, goals, and visit frequency developed, reviewed, and agreed upon with patient and/or caregiver. Patient Goal: To return to being (I) and improving the pain level. Patient will benefit from continued physical therapy to address the following deficits: strength, balance, gait, endurance, R knee joint ROM, transfers, stair negotiation and bed mobility. Current Discharge Plan: outpatient rehab. Anticipate discharge by 01.20.23. RECOMMENDATION: Next visit to focus on: Functional Test, Progress ther-ex as able, gait and transfers Agreeable to PT; See intervention summary for intervention/education details. documented in this encounter [facility] 01-03-2023 Miscellaneous Notes Welcome Home Call: a. Date and Time: 9:51 AM 01/03/2023 b. Contact name/relationship: patient c. Have you been active with any Home Care company in the last 60 days (such as help with bathing, filling medications, checking your blood pressure, or assistance with an exercise program)? No. d. [facility] will be providing your care, are you agreeable to starting these services? yes (yes or no) e. Do you have any upcoming appointments in the next few days, or restrictions to your schedule? no f. Caregiver: Patient is able to manage care independently g. Confirmed Visited Location and preferred #: Address: [address] [place] [id number] h. Was patient given Flu shot this Season (After Nov,): No: Patient refused Please keep our your medications both over the counter and prescribed out for the home care to review, your hospital discharge instructions and write down any questions you might have. While we focus on providing safe care, in support of this mission, we ask you to: Be respectful of our caregivers. Do not raise your voice or use profanity. You and your family/caregivers must be considerate of our organization's staff and property. Promote a safe and respectful environment. We will not tolerate any form of threatening or aggressive behaviors towards our caregiver team. This includes verbal, physical or sexual behaviors: - Examples include acts or threats of physical violence, harassment, intimidation, abusive or foul language, or other aggressive, disruptive or discriminatory behavior. Any firearms or weapons in the home must be stored and locked in a separate room from where care is taking place. Firearms or other weapons should not be easily accessible or in plain view; when available, firearms should be stored and locked in a firearm safe. - Weapons of any kind include: firearms, knives, tasers and all other things that can inflict bodily or physical harm. Pets/animals must be moved to a separate closed room or placed in a crate/cage while caregivers are in the home. (Service animals excluded). Substance Use (illegal drugs, alcohol, cigarettes) including Medical marijuana in a vaporized or inhaled form is not permitted for use by a patient or caregiver/family member while our caregivers are in the home. Taking photos or videos of our caregivers without permission is not permitted. Our clinicians will call you the night before or the morning of the appointment. Their # may come up restricted but they'll leave a VM for you. In case you have any questions or concerns in the meantime, our # is [phone], option 5 Thank you for your time and have a great day. SELVIN Rsosi documented in this encounter [facility] 12-21-2022 Miscellaneous Notes Images from the original note were not included. Sam Feldman, DO You 1 minute ago (3:26 PM) Patient is cleared from a cardiac standpoint to undergo her surgery. Pt is scheduled 01/02/23 for left TKA with Dr. Ferreira. Pt had a normal pharm stress test completed 11/30/22. Pt has not had f/u with cardiology since testing. Please advise if optimized for upcoming left TKA. Thank you documented in this encounter [facility] 12-19-2022 Instructions Renee Chavez MD - 12/19/2022 2:49 PM EDT Patient feels she is healing well but still has tenderness laterally both eyes Discussed could do intralesional kenalog injection: patient defers Discussed could use topical steroid/antibiotic ointment : patient defers No sign of infection Patient would like to give it some time Can use silicone scar gel on incisions twice a day to help with redness/scarring -->patient used and did better when stopped using it Recheck 2-3 months if still bothered documented in this encounter [facility] 12-19-2022 History of Present illness Narrative s/p BUL BLEPH 10/26/22 Tender, tightness. Happy with lids. Using an assortment of oils on skin of lids. A/P: 1. . s/p BUL BLEPH 10/26/22 Doing well at this time. Patient happy with results but feels some bumps and some tenderness of eyelids claire at ends Exam: Healed well Bilateral upper lids incisions well healed Expected small bumps along incision line, no sign infection Right upper lid lateral bump ~5mm in from end; reports some tenderness, no drainage Patient feels she is healing well but still has tenderness laterally both eyes Discussed could do intralesional kenalog injection: patient defers Discussed could use topical steroid/antibiotic ointment : patient defers No sign of infection Patient would like to give it some time Can use silicone scar gel on incisions twice a day to help with redness/scarring -->patient used and did better when stopped using it Recheck 2-3 months if still bothered Outcome: S/P Eyelid Surgery Outcomes: Symmetry excellent Post-op Diagnoses: None 2. General eye care Dr. Henriquez The documentation for this note was completed by Natalya Abebe APRN, CNP acting as a scribe for Renee Chavez MD. 12/19/2022 2:48 PM. I have confirmed and edited as necessary the relevant ophthalmic history, ROS, and the neuro exam findings as obtained by others. I have seen and examined Moira Suh. I have discussed the case and the management of this patient's care with the Resident/Fellow, if applicable. I also have reviewed and agree with the assessment and plan as stated above and agree with all of its relevant components. I, Renee Chavez MD, personally performed the services described in this documentation. All medical record entries made by the scribe were at my direction and in my presence. I have reviewed the chart and discharge instructions (if applicable) and agree that the record reflects my personal performance and is accurate and complete. Electronically Signed: Renee Chavez MD, December 19, 2022 2:48 PM. documented in this encounter [facility] 12-15-2022 Miscellaneous Notes Radiology Service Progress Note PATIENT NAME: Moira Suh DATE OF SERVICE: December 15, 2022 TIME: 3:09 PM PATIENT IDENTITY VERIFICATION COMPLETED USING TWO (2) IDENTIFIERS: Name and Date of confirmed by patient verbally and Name and Date of confirmed by identification band. FALL SCREENING: Has the patient had 2 falls in the last year or 1 fall with injury or currently using an Ambulatory Assistive Device (Walker, Cane, Wheelchair, Crutches, etc.)? No PATIENT GENDER DATA: Female. status: : No status: NO. PATIENT RELEVANT IMPLANT DATA REVIEWED: Yes RADIOLOGY DEPARTMENT: CT; Exam(s) Completed: Gordon Knee RT PERIPHERAL IV DATA: Not applicable SIGNED BY: RT Neisha(R) December 15, 2022 3:09 PM documented in this encounter [facility] 12-14-2022 Miscellaneous Notes TOTAL JOINT COMPLETE CARE PROGRAM PRE-OPERATIVE TEACHING Service Date: 12/14/2022 Service Time: 3:41 PM Date of : 1950 Gender: female Date of Surgery: 01/02/23 Procedure: Right 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 Complete Care Program was discussed with the patient: Product Marketing Specialist Identification: Patient identified a respiratory care practitioner to help when discharged to home: time stamp assembler Home Environment: Home Layout: 2 story, Entry Steps: 2 platform, Bedroom Location: 1st floor, Bathroom Location: 1st floor, and walk in shower. Pt plans to borrow walker with wheels. Pt has half walk by toilet she can use to push up. Discussed with patient importance of attending joint education class and provided date and times of class: YES unable. Patient received Joint Education Binder: Yes Patient plans discharge home with [facility]. SIGNATURE: SELVIN Sousa PATIENT NAME: Moira Suh DATE: December 14, 2022 TIME: 12:25 PM documented in this encounter [facility] 12-12-2022 Miscellaneous Notes PATIENT NOTIFIED OF INFORMATION Message left for pt to call back for results. Demetra Crowell MA Ferritin level is only slightly elevated, and is a very non specific test. It is more concerning if it is low. I do no think her results is anything to be concerned about. Brady Velarde MD Pt. states labs were ordered by her Ortho Surgeon. He doesn't follow her Ferritin levels. Please advise. Called and left a voicemail for the patient to call back and ask for a nurse to receive the providers message. This was not ordered by Dr. Chance so technically should be reviewed by the ordering provider. Kianna Marques APRN.CNP Pt calling as she wants Dr. Chance to review her labwork as she is concerned because her Ferritin level is elevated. She is supposed to have Right robotic knee replacement on 01/02. The lab was ordered by Dr. Ferreira. Pt does not want to have her surgery cancelled at the last minute because someone missed this abnormal test. She noticed the results on MyChart-no one called her and told her the Ferritin was abnormal. Pt encouraged to call her surgeon's office to notify them as well of the result to make sure he is okay with the result. Also pt told that this information would be forwarded to Dr. Chance to review. documented in this encounter [facility] 11-30-2022 History of Present illness Narrative RADIOLOGY SERVICE PROGRESS NOTE SERVICE DATE: 11/30/2022 SERVICE TIME: 12:54 PM PATIENT IDENTITY VERIFICATION COMPLETED USING TWO (2) STANDARD IDENTIFIERS: Name and Date of confirmed by patient verbally FALL SCREENING: Has the patient had 2 falls in the last year or 1 fall with injury or currently using an Ambulatory Assistive Device (Walker, Cane, Wheelchair, Crutches, etc.)? No PATIENT GENDER DATA: .female : No ALLERGIES: Reviewed and unchanged MEDICATIONS REVIEWED: Not applicable PATIENT RELEVANT IMPLANT DATA REVIEWED: Not Applicable CREATININE: Creatinine Date Value Ref Range Status 03/29/2022 0.70 0.58 - 0.96 mg/dL Final 11/29/2020 0.66 0.58 - 0.96 mg/dL Final 09/28/2017 0.75 0.58 - 0.96 mg/dL Final Estimated Glomerular Filtration Rate Date Value Ref Range Status 03/29/2022 91 >=60 mL/min/1.73m Final Comment: Estimated Glomerular Filtration Rate (eGFR) is calculated using the 2020 CKD-EPI creatinine equation. This equation utilizes serum creatinine, sex, and age as parameters. The creatinine assay has traceable calibration to isotope dilution-mass spectrometry. Refer to KDIGO guidelines for clinical interpretation. In patients with unstable renal function, e.g. those with acute kidney injury, the eGFR may not accurately reflect actual GFR. eGFR- Date Value Ref Range Status 11/29/2020 >60 Final P.O.C.T. RESULTS: N/A November 30, [address] PERFORMED: No IV SITE: Ambulatory: A peripheral IV was started in the Right antecubital site with a Angio cath: 22 gauge. POST EXAM PIV STATUS: Discontinued PROCEDURE TYPE: NM Stress: 13.8 mCi [id number] was administered IV for Rest Imaging at 12:07 by RUDDY. 33.2 mCi [id number] was administered IV for Stress Imaging at 12:52 by STEFANIE. PATIENT DISCHARGED TO: Ambulatory patient, left NM department area. A Diagnostic radioactive procedure has taken place, with no further precautions necessary other than routine body substance precautions. More information regarding radiation safety can be found using this link: [email or web address] SIGNATURE: MARIE Casillas) PATIENT NAME: Moira Suh DATE: November 30, 2022 TIME: 12:54 PM PAGER/CONTACT #: documented in this encounter [facility] 11-28-2022 Miscellaneous Notes Assigned right knee order to CT appt on 12/[address] Ferreira, we will change plans to the right knee on 01/02/23. CT order is in for the right knee. Sam Fabian PA-C Patient is scheduled for knee replacement surgery on 01/02 for her left knee. She would this changed to her right knee as she feels the left knee is the strongest one right now. If this is changed, we need a new CT order put in for the right knee so we can attach it to her current CT appointment. She also asked about having PT done prior to surgery as she stated she is so weak and crippled. She would like to build strength as much as she's able. Please advise Thank you! documented in this encounter [facility] 11-13-[address] has been scheduled. Please schedule ct scan 01/02/23 Lt tka gordon. documented in this encounter [facility] 11-09-2022 History of Present illness Narrative POPULATION HEALTH NAVIGATION OUTREACH Action/FYI Spoke with patient Declines to schedule appointments at this time Patient Identified by Name and : YES, via phone Outreach Outcome/Action Spoke to patient / parent / legal guardian: Patient declined Did you use a PCP flex slot to schedule this appointment? N/A Reason for Outreach Care Gap or Scheduling/Wellness visits Payer: Payor: [facility] [employer] AND [employer] [facility] / Plan: [employer] HMO / Product Type: HMO / Care Gap Reviewed:: Annual Wellness visit Breast Cancer screening Colorectal Cancer Screening Flu Vaccine Reminder: Reminder note to check Health Maintenance for items below Health Maintenance items due: HEPATITIS C SCREENING Never done SHINGRIX VACCINE(1 of 2) Never done DTAP,TDAP,TD(1 - Tdap) due on 11/22/2004 BONE DENSITY Never done PNEUMOCOCCAL: 65+(1 - PCV) Never done MAMMOGRAM due on 12/21/2019 COLORECTAL CANCER SCREENING due on 12/21/2019 COVID-19 VACCINE(4 - Pfizer series) due on 04/01/2021 ADVANCE DIRECTIVE DISCUSSION Never done DEPRESSION ASSESSMENT Never done INFLUENZA(1) due on 11/03/2022 Navigation Signature: Alecia Bangura Population Health Navigator November 09, 2022 2:27 PM documented in this encounter [facility] 11-03-2022 Miscellaneous Notes Spoke with pt Advised at least 30 days before surgery to get BW She will gone for 3 weeks and will return on 11/28 She has a stress test 11/30 She will get BW on 11/29 PT had lab orders for her upcoming surgery with Dr. Ferreira. PT questions when the best time to get labs drawn. PT stated she had an eye surgery done with local anesthetic a week ago and has a nuclear medicine test coming up. Please advise PT. documented in this encounter [facility] 11-03-2022 Instructions Natalya Abebe APRN.SUMEET - 11/03/2022 2:49 PM EDT Removed sutures today without complication; pt tolerated well. No sign of infection. Decrease erythromycin ointment to twice daily x 1 more week, then stop. Warm compresses until swelling resolves. May resume normal activities - no swimming x 1 more week. Can use silicone scar gel on incisions twice a day after finished with ointment (2 wks after surgery) to help with redness/scarring Follow up with Dr. Chavez in 6 weeks, sooner if issues. documented in this encounter [facility] 11-03-2022 History of Present illness Narrative A/P: 1. s/p BUL BLEPH 10/26/22 Doing well at this time. Exam: Anticipated postsurgical ecchymosis and edema Incisions healing well No erythema or warmth Good contour of eyelids No lagophthalmos No spk Removed sutures today without complication; pt tolerated well. No sign of infection. Decrease erythromycin ointment to twice daily x 1 more week, then stop. Warm compresses until swelling resolves. May resume normal activities - no swimming x 1 more week. Can use silicone scar gel on incisions twice a day after finished with ointment (2 wks after surgery) to help with redness/scarring Follow up with Dr. Chavez in 6 weeks, sooner if issues. I have confirmed and edited as necessary the relevant ophthalmic history, ROS, and the neuro exam findings as obtained by others. I have seen and examined this patient. I have discussed the case and the management of this patient's care with the Resident/Fellow, if applicable. I also have reviewed and agree with the assessment and plan as stated above and agree with all of its relevant components. Natalya Abebe APRN.SUMEET November 03, 2022 3:07 PM documented in this encounter [facility] 11-01-2022 History of Present illness Narrative Patient referred to Blood Management for anemia evaluation/pre-surgical optimization. Current and complete lab data unavailable. Unable to complete evaluation. documented in this encounter [facility] 10-30-2022 Miscellaneous Notes Both pharm and exercise stress test orders do not until 11/21/23. Pt does have questions regarding the test. documented in this encounter [facility] 10-27-2022 Miscellaneous Notes Called pt POD#1 Pt doing well Had a lot of nausea with anesthesia, no vomiting, nausea improved today Discussed limitations and use of ice and ointment Plan to f/u next week as scheduled for post-op appt Pt will call back if any questions or concerns Lu Hernandez PA-C October 27, 2022 documented in this encounter [facility] 10-20-2022 Miscellaneous Notes Bernardo, I ordered the exercise nuclear stress test and the staff can change it to a pharmacologic(Lexiscan) if she can not complete it walking. Dr. Feldman documented in this encounter [facility] 10-16-2022 Miscellaneous Notes Called patient Discussed with her it is up to the hat band attacher whether she needs the stress test prior to blepharoplasty (10/26/22; can be moved if needed) H/o cabg x [address] Brad Feldman Patient to have stress test prior to knee surgery Patient will try to get in touch with cards; will also send epic message to dR. Felmdan All questions answered documented in this encounter [facility] 10-16-2022 Miscellaneous Notes Renee Chavez MD filed at 09/12/2022 3:14 PM Status: Signed NEW patient Pt c/o droopy lids Trouble reading, seeing TV and driving Holds up lids to improve vision Pt had testing in [place] and thinks she was improved but wants to come here A/P: Heavy upper eyelids Feels that eyelids block vision and sees better when lifted especially when driving and reading No double vision No issues eating/swallowing No H/o contact lens use Exam: Brow ptosis + skin on lashes, lash ptosis both eyes Frontalis use AL: 35, 36 LF: 15,15 Margin to reflex distance 1: 4, 4 Ptosis visual field diff: 16, 22 Pupils symmetric Extraocular movement full, no diplopia Left lower lid medial 1mm vascular lesion, flat, 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 Discussed options: - Can consider Botox for brow lift (lasts 3 mo, also cosmetic). Botox takes 1 week to set in lasts 3-4 mo, cost $12.50/unit, typical dose 25-35 units $300-450 Discussed risk of bruising, spread to cause droopy eyelid,double vision, rare allergic reaction, rare generalized weakness with neurological disorders eg. Eaton Lambert syndrome Consider bilateral upper lid blepharoplasty, will still have some heaviness 2/2 brow ptosis, but hopefully improved. Need certain amt of skin to close eyes. Plan: Bilateral upper lids blepharoplasty Mac 30 min Avoid aspirin, ibuprofen, nsaids, vitamin e , fish oil 2 wks prior and 1 wk post Stop multivitamin, [place] 3's, CoQ-10, 2 wks prior and 1 wk post Nothing to eat or drink 8 hrs prior to surgery except medicines day of with small sip of water Will need marine engine driver if having sedation surgery Can take arnica [place] 5 day prior and 5 days post; bromelain as well for swelling For surgery [facility], call The patient was offered a surgery/procedure at a [facility] facility. The surgeon/proceduralist and patient have discussed in detail the risk of exposure to and/or potential harm posed by the COVID-19 virus with having a surgery/procedure at this time versus the risk of delaying the surgery/procedure. It is not possible to know either the risk of delaying the surgery or procedure or chance of getting an infection with perfect accuracy, but a joint decision was made between the patient and the surgeon/proceduralist to proceed at this time with the scheduled surgery/procedure as indicated on the consent form. An extensive discussion of the risks, benefits, alternatives of the above surgeries was conducted with the patient. The patient understood the risks including, but not limited to: bleeding, infection, scarring, asymmetry, need for future additional surgery, poor cosmesis, worsening dry eyes, orbital hemorrhage causing loss of vision, nerve damage, muscle damage, double vision, complications of anesthesia including loss of life. Discussed with patient these surgeries in most cases are performed with resident and/or fellow participation at the level deemed fit by Dr. Chavez. Patient verbalizes an understanding. The patient wished to proceed with surgery. Post operative course reviewed. 1-2 wks of bruising and swelling. Ice compresses (ie: frozen peas in Ziploc bag with cloth between bag and skin) for15 min every hour for the first 3 days after surgery; then warm compresses as needed for bruising (from post op days 3-7) Avoid blood thinners including aspirin, Advil, Motrin, Aleve, vitamin E, fish oil at least 2 wks prior to surgery. Antibiotic ointment to eyes and incisions four times a day after surgery for 1 week. No heavy lifting over 15 lbs or any strenuous exercise for 1 wk after surgery. Walking is okay after surgery. The documentation for this note was completed by Natalya Abebe APRN, CNP acting as a scribe for Renee Chavez MD. 09/12/2022 3:08 PM. I have confirmed and edited as necessary the relevant ophthalmic history, ROS, and the neuro exam findings as obtained by others. I have seen and examined Moira Suh. I have discussed the case and the management of this patient's care with the Resident/Fellow, if applicable. I also have reviewed and agree with the assessment and plan as stated above and agree with all of its relevant components. I, Renee Chavez MD, personally performed the services described in this documentation. All medical record entries made by the scribe were at my direction and in my presence. I have reviewed the chart and discharge instructions (if applicable) and agree that the record reflects my personal performance and is accurate and complete. Electronically Signed: Renee Chavez MD, September 12, 2022 3:08 PM. documented in this encounter [facility] 10-06-2022 History of Present illness Narrative Radiology Service Progress Note PATIENT NAME: Moira Suh DATE OF SERVICE: October 06, 2022 TIME: 3:01 PM PATIENT IDENTITY VERIFICATION COMPLETED USING TWO (2) IDENTIFIERS: Name and Date of confirmed by patient verbally. FALL SCREENING: Has the patient had 2 falls in the last year or 1 fall with injury or currently using an Ambulatory Assistive Device (Walker, Cane, Wheelchair, Crutches, etc.)? No PATIENT GENDER DATA: Female. status: : No status: N/A PATIENT RELEVANT IMPLANT DATA REVIEWED: Not Applicable RADIOLOGY DEPARTMENT: General X-ray: Exam(s) Completed: Lower Extremity X-Ray(s): Knee, AP / Lat / Tunne / Merchant Bilateral and Wt. Bearing PERIPHERAL IV DATA: Not applicable SIGNED BY: RT Kurtis(R) October 06, 2022 3:01 PM documented in this encounter [facility] 10-06-2022 Miscellaneous Notes I had an kind of an episode this morning like afib I have a fit bit and it was a very strange ECG read out very erratic. So I took my blood pressure it was high 146/82 and I continued to take it and then it went down into the 30s and and then it went to 119/70 . I'm on my way to the [facility] right now for x-rays and appointment with the knee doctor and I thought that I would get shots and then come in to your office and make an appointment for my stress test but I took my blood pressure right before I left and it was 180/83. Pt did go to ED from 1346 till 1403. Please see ED note. Called pt, she has xray appointment at [address] Ferreira appointment at 1515 today. Pt sounded to have moderate anxiety in her voice. She will call [phone] to schedule appointment with Dr. Feldman when she is available. documented in this encounter [facility] 10-04-2022 History and physical note HISTORY AND PHYSICAL EXAMINATION SERVICE DATE: 10/03/2022 SERVICE TIME: 9:15 AM PRIMARY CARE PHYSICIAN: Silvestre Chance DO REASON FOR VISIT: Moira Suh is a 72 year old female who is scheduled for Procedure(s): BLEPHAROPLASTY UPPER MEDICALLY NECESSARY (Bilateral) at the request of Renee Chadwick MD for consultation. My final recommendation will be communicated back to the requesting physician by way of shared medical record or letter. Subjective The patient has the following: 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) Dry Skin Hair Loss Bmi 34.0-34.9,Adult Exposure to Mercury Paf (Paroxysmal Atrial Fibrillation) (Hcc) Insulin Resistance Vitamin D Deficiency COVID-19 Immunization Status Overdue - COVID-19 VACCINE (4 - Pfizer series) Overdue since 04/01/2021 02/04/2021 Imm Admin: COVID-19 original vaccine, age 12+ yr, monovalent (PFIZER-BIONTECH - PURPLE TOP) 05/10/2020 Imm Admin: COVID-19 original vaccine, age 12+ yr, monovalent (PFIZER-BIONTECH - PURPLE TOP) 04/19/2020 Imm Admin: COVID-19 original vaccine, age 12+ yr, monovalent (PFIZER-BIONTECH - PURPLE TOP) CHIEF COMPLAINT: Pre-anesthesia optimization HPI: Moira Suh is a 72 year old female presenting for pre-anesthesia consultation. Pt has history of droopy eyes causing difficulty with driving and reading. Above procedure recommended to manage symptoms. Procedure scheduled on 10/26/2022 at [facility]. REVIEW OF SYSTEMS: General: No weight loss, malaise or fevers. Neurological: No history of TIA's, stroke, DELIVERY DRIVER/SUPERVISOR tumor, impaired sensorium, hemiplegia, paraplegia or quadraplegia. No neurological symptoms or problems. Respiratory: Positive for: tobacco use (former smoker, smoked about 15 years, quit age 29). Negative for: asthma, COPD, current cough, dyspnea, URI < 2 weeks and obstructive sleep apnea. Cardiovascular: Positive for: arrhythmia (h/o bigaminy), atrial fibrillation (no AC, treated with metoprolol), CAD, hyperlipidemia, hypertension and open heart surgery (CABG x 3 07/2015) Patient's last office visit The following tests and/or procedures were performed: cardiac catheterization. The following tests and/or procedures were not performed: cardiac stents. Negative for: chest pain, DVT/PE and murmur/valvular heart disease. GI: No history of GI symptoms or problems. No history of esophageal varices, recent ascites, or ETOH greater than 2 drinks per day. : No history of dysuria, frequency or incontinence, stones or chronic kidney disease. No difficulty urinating, nocturia > 1 time per night or hematuria. INSPECTOR RETURNED MATERIALS: Negative for abnormal vaginal bleeding, abnormal vaginal discharge. Endocrine: + multinodular goiter. No history of diabetes. Has not taken steroids within the past 30 days. No history of endocrinological symptoms or problems. Hematology: Positive for: bruises/bleeds easily. Oncology: No history of CA metastasis, chemo within 30 days, or radiotherapy within 90 days. No history of oncological symptoms or problems. Psych: No history of psychiatric symptoms or problems. Musculoskeletal: Positive for: joint pain (knees). Skin: Negative for lesions, rash and itching. PAST MEDICAL HISTORY Diagnosis Date Atrial fibrillation (HCC) Coronary artery disease Holter monitor, abnormal extra beats Hypercholesteremia Hyperlipidemia Hypertension Insulin resistance 07/19/2017 Leiomyoma of uterus, unspecified Low HDL (under 40) PAST SURGICAL HISTORY Procedure Laterality Date CORONARY ARTERY BYPASS GRAFT HX 2015 3 vessel FNA WITH IMAGING 11/27/12 U/S FNA bilateral thyroid PAST SURGICAL HISTORY OF age 28 1 ovary removed, 1 tube reconstructed from ectopic PAST SURGICAL HISTORY OF age 20 tendon repairs to wrists after going through glass door PAST SURGICAL HISTORY OF removal of uterine polyp FAMILY HISTORY Problem Relation Age of Onset Prostate Cancer Father Thyroid Mother Hypertension Mother Thyroid Sister Social History Tobacco Use Smoking status: Former Packs/day: 1.00 Years: 10.00 Total pack years: 10.00 Types: Cigarettes Smokeless tobacco: Never Vaping Use Vaping Use: Never used Substance Use Topics Alcohol use: No Comment: socially Drug use: No Prior to Admission medications as of 10/04/22 0838 Medication Sig Last Dose Taking metoprolol succinate ER (TOPROL XL) 25 mg 24 hr tablet Take 1 tablet by mouth once daily. Taking Yes hiygavv-rito-plejl-oreg-capryl 100 mg-150 mg- 50 mg-150 mg cap Take 1 tablet by mouth twice daily. Taking Yes OmegaGenics EPA-DHA 2400 (High Concentrate EPA/DHA liquid) (LearnSomething) Take one teaspoon (5 ml) 1 times daily with food Taking Yes MAGNESIUM ORAL Take 135 Units by mouth once daily. Takes 6 capsules daily Taking Yes ascorbic acid, vitamin C, (VITAMIN C) 500 mg tablet Take 2,000 mg by mouth once daily. Taking Yes B-Complex Plus (Pure Encapsulations) - 1qD stress/energy/hormones/detox/weigh t loss Take 1 capsule by mouth once daily. Taking Yes CoQ10, Liposomal Ubiquinol, 200 mg cap Take 1 capsule by mouth daily with food. Taking Yes cholecalciferol (VITAMIN D3) 1,000 unit tab tablet Take 1,000 Units by mouth once daily. Taking Yes guaifen/dextromethorphan/pe (GUAPHEN FORTE ORAL) Take 1 capsule by mouth once daily. Unknown units Patient not taking: Reported on 10/04/2022 Not Taking Medication Comments documented by Mireille Fox (Rn), RN on 09/28/2015 at 1049. Current per pt.09/28/15 ALLERGIES Allergen Reactions Atorvastatin Calcium Myalgia Caused severe myalgias to bilateral thighs and across back Codeine Mental Status Change Can hear whats going on around her but she can't wake up Crestor [Rosuvastat* Myalgia 20 mg caused severe myalgias to upper thighs and across back Objective PHYSICAL EXAM: General: alert and oriented and healthy appearance. Pertinent negatives noted - not distressed. Skin: normal color, no rash or lesions. HEENT: EOM intact and pupils equal round. Pertinent negatives noted - no carotid bruit. Cardiovascular: regular rate and rhythm, normal S1 and S2, no rub, murmurs, or gallop. Respiratory: normal breath sounds, no wheezes or crackles. No chest wall deformity or tenderness. Abdomen: soft. Pertinent negatives noted - not tender. Extremities: no deformity, no edema or tenderness, no joint swelling or clubbing. Neurological: normal cognition and motor skills. Gait normal. No weakness or sensory deficit. PAIN ASSESSMENT: VITALS: BP 146/94 Pulse 68 Temp (Src) 98.3 (Temporal) Resp 16 Ht 5' 5.5 (1.66m) Wt 209 lb (94.8kg) SpO2 97% BMI 34.24 kg/(m^2). Diagnostic tests reviewed for today's visit: Lab Value Units Date High Low HB No results within date range. HCT No results within date range. WBC No results within date range. PLT No results within date range. NA No results within date range. K No results within date range. GLUC No results within date range. BUN No results within date range. CREAT No results within date range. PTSEC No results within date range. INR No results within date range. APTT No results within date range. ALT No results within date range. AST No results within date range. TBILI No results within date range. TSH No results within date range. Lab Value Units Date High Low HCGQT No results within date range. UHCG No results within date range. HCG, BODY* No results within date range. Lab Value Units Date High Low ABORHD No results within date range. ABSCREEN No results within date range. Hemoglobin A1C (%) Date Value 09/28/2017 5.5 04/12/2017 5.3 12/13/2012 5.2 Recent Results (from the past 8760 hour(s)) ECG COMPLETE Collection Time: 03/23/22 2:38 PM Result Value Ventricular Rate 86 Atrial Rate 86 P-R Interval 162 QRS Duration 84 QT Interval 368 QTC Calculation (Bazett) 440 Calculated P [place] 59 Calculated R [place] -8 Calculated T [place] 49 Impression NORMAL SINUS RHYTHM NORMAL ECG Recent Results (from the past 74222 hour(s)) ECHO Collection Time: 03/28/22 3:29 PM Impression CONCLUSIONS: - Technically difficult exam due to body habitus. - Exam indication: CAD - The left ventricle is small. Left ventricular systolic function is normal. EF = 61 5% (2D biplane) Grade I left ventricular diastolic dysfunction. - The right ventricle is normal in size. Right ventricular systolic function is normal. - There are no significant valvular abnormalities. - Exam was compared with the prior echocardiographic exam performed on 04/26/2016, no significant change. * * * Final * * * Assessment Patient has the following medical conditions which may affect veronica-operative course: Hyperlipidemia Assessment: Stablet. Takes herbal treatment. Not on meds CAD (coronary artery disease) Assessment: Denies any new or worsening cardiac symptoms. Follows hat band attacher, Dr. Feldman, last OV 03/27. Reports compliance to medication. Hx of CABG x3. Recent cardiac testing EKG, echo, stress test. Ejection Fraction - Result: 61 % Date: 03/28/2022 Time: 15:29:39 PAF (paroxysmal atrial fibrillation) ([facility]) Assessment: post-op CABG, no AC Multinodular goiter Assessment: FNA completed, no further work up needed BMI 34.0-34.9,adult Assessment: Body mass index is 34.25 kg/m . Cunningham Activity Status Index: METS: Climb a flight of stairs or walk up a hill (5.50 METs) DASI Score: 5.5 Patient denies any chest pain or undue shortness of breath with the above physical activity. STOP-Bang Score: Has or is being treated for high blood pressure Patient over 50 years old Denies snoring loudly Denies feeling tired, fatigued, or sleepy during the daytime Has not been observed to stop breathing or choking/gasping during sleep BMI less than or equal to 35 kg/m^2 Does not have a large neck Non-male patient STOP-Bang Score: 2 [id number] Score: Age: 65-74 Sex: female CHF history: No Hypertension history: Yes Stroke/TIA/thromboembolism history: No Vascular disease history: No Diabetes history: No [id number] Score: 3 ARISCAT Score: Age: 51-80 Preoperative SpO2: >=96% Respiratory infection in the last month: No Preoperative anemia: Yes Surgical incision: peripheral Duration of surgery: <2 hrs Emergency procedure: No ARISCAT Score: 14 ASA Class: 3 ANESTHESIA FINDINGS: Intubation History: No history of difficult intubation. No abnormal airway history Significant Anesthesia Considerations: none Airway History: No history of difficult airway No abnormal airway history I - PHYSICAL EVALUATION AIRWAY Patient intubated: No. Tracheostomy tube not present Mallampati: III. TM distance: >3 FB. Neck ROM: full ROM without neurological symptoms. Mouth opening: adequate. Short neck: no. Thick neck: no Lip Bite Test: I DENTAL Dental findings: teeth intact. II - ANESTHESIA PLAN ASA Score: 3 Anesthetic Plan: MAC Beta Reina Monitoring Plan Post Procedure Analgesic Plan Prepared for Surgery: optimally prepared for surgery. Per PACC guidelines no other testing is required CONSULTS: Patient does not require consults for optimization at this time Planned Anesthetic: MAC The Following Tests/Procedures Have Been Initiated: No orders of the defined types were placed in this encounter. Instructions Given to Patient: Instructions located in the after visit summary. Patient given verbal and written preop instructions and voices comprehension and compliance. SIGNATURE: Cate Jamison PA-C PATIENT NAME: Moira Suh DATE: October 03, 2022 TIME: 10:06 AM PAGER/CONTACT #: documented in this encounter [facility] 10-04-2022 Instructions Cate Jamison PA-C - 10/04/2022 8:39 AM EDT PATIENT PREOPERATIVE INSTRUCTIONS No ref. provider found has scheduled you for your procedure at this surgery center: [facility] Scheduling Office: [phone] --[id number] [place] [address]. Please read below carefully for your personalized instructions. Arrival Time for Surgery: - To obtain your arrival time for surgery, call your physician's office the day before your surgery. - If your surgery is scheduled for Sunday, call the Sunday before. Your surgeon s casing splitter will tell you what time to call the office. - If you have not reached the departmental casing splitter by 5 P.M., call [phone] after 5 P.M. the day before your surgery. Please be aware that emergency situations arise, which may delay or change your surgical time. If this happens, we will notify you as soon as possible and regret any inconvenience. Dietary Restrictions: - No solid food after midnight. - You may have 12 ounces of clear liquids (water, clear juices such as apple juice or gatorade, carbonated beverages, clear tea, black coffee, jello) until 2 hours before scheduled arrival at facility. - Do not drink any alcohol after midnight the night before your surgery. Medications: Unless instructed differently below, stay on all of your medications until your surgery. Approved medications to take the morning of surgery with a sip of water: metoprolol If you start any new medications after today's visit, please contact the surgeon's office. Blood Thinning Medications: - Stop NSAIDS (Ibuprofen, Advil, Aleve, Motrin, Celebrex, Mobic, etc.) 7 days before surgery, as directed by your surgeon. - Stop Aspirin 7 days before surgery, as directed by your surgeon. - Stop Vitamin E, ALL multi-vitamins, herbals and dietary supplements 7 days before surgery. - You may take Tylenol (Acetaminophen) or any of your pain medications that do not contain aspirin or NSAIDS as needed. Important Reminders: - If you use CPAP/BIPAP, bring the machine with you to the surgery center. - If you are prescribed inhalers for breathing, continue using them. - Candy, mints, and tobacco products are NOT permitted the morning of surgery. - Hearing aids, dentures and glasses may be worn the morning of surgery. - NO jewelry, body piercings, makeup, hairpins or contacts are to be worn the day of surgery. If you develop symptoms such as a fever, cold, or flu, or have other changes to your health within TWO DAYS of scheduled surgery or the morning of surgery, please contact the surgery center above. Personal Belongings: -Please have photo ID and insurance cards. -If you do not have a copy of advance directives on file with us, please bring a copy with you on the day of surgery. - Leave ALL valuables and money at home or with family members. For Outpatient Procedures: - YOU MUST HAVE A RESPONSIBLE UX RESEARCH ASSOCIATE TAKE YOU HOME. A AUTOMOBILE BODY REPAIR CHIEF OR DECAL DECORATOR CANNOT BE MADE A RESPONSIBLE UX RESEARCH ASSOCIATE. - We recommend that a responsible person stays with you overnight to take care of you. - You cannot stay in a hotel alone after outpatient surgery. You will not be permitted to have your surgery, if you do not have someone to take care of you. If you already have an Advance Directive, please fax a copy to [phone] or email to for it to be added to your chart. If you do not have an Advance Directive, you can find the appropriate form and more information at [email or web address]. We recommend that you complete the Advance Directive form found on the website and bring it with you the day of your surgery. It can be witnessed and scanned into your chart that day. Cate Jamison PA-C documented in this encounter [facility] 09-12-2022 Instructions Renee Chavez MD - 09/12/2022 3:11 PM EDT Patient has brow ptosis lower than orbital rims, especially laterally -Without brow lift there will be suboptimal improvement of heavy upper lids. Discussed options: - Can consider Botox for brow lift (lasts 3 mo, also cosmetic). Botox takes 1 week to set in lasts 3-4 mo, cost $12.50/unit, typical dose 25-35 units $300-450 Discussed risk of bruising, spread to cause droopy eyelid,double vision, rare allergic reaction, rare generalized weakness with neurological disorders eg. Eaton Lambert syndrome Consider bilateral upper lid blepharoplasty, will still have some heaviness 2/2 brow ptosis, but hopefully improved. Need certain amt of skin to close eyes. Plan: Bilateral upper lids blepharoplasty Mac 30 min Avoid aspirin, ibuprofen, nsaids, vitamin e , fish oil 2 wks prior and 1 wk post Stop multivitamin, Beaumont 3's, CoQ-10, 2 wks prior and 1 wk post Nothing to eat or drink 8 hrs prior to surgery except medicines day of with small sip of water Will need marine engine driver if having sedation surgery Can take arnica montana 5 day prior and 5 days post; bromelain as well for swelling For surgery [facility], call The patient was offered a surgery/procedure at a [facility] facility. The surgeon/proceduralist and patient have discussed in detail the risk of exposure to and/or potential harm posed by the COVID-19 virus with having a surgery/procedure at this time versus the risk of delaying the surgery/procedure. It is not possible to know either the risk of delaying the surgery or procedure or chance of getting an infection with perfect accuracy, but a joint decision was made between the patient and the surgeon/proceduralist to proceed at this time with the scheduled surgery/procedure as indicated on the consent form. An extensive discussion of the risks, benefits, alternatives of the above surgeries was conducted with the patient. The patient understood the risks including, but not limited to: bleeding, infection, scarring, asymmetry, need for future additional surgery, poor cosmesis, worsening dry eyes, orbital hemorrhage causing loss of vision, nerve damage, muscle damage, double vision, complications of anesthesia including loss of life. Discussed with patient these surgeries in most cases are performed with resident and/or fellow participation at the level deemed fit by Dr. Chavez. Patient verbalizes an understanding. The patient wished to proceed with surgery. Post operative course reviewed. 1-2 wks of bruising and swelling. Ice compresses (ie: frozen peas in Ziploc bag with cloth between bag and skin) for15 min every hour for the first 3 days after surgery; then warm compresses as needed for bruising (from post op days 3-7) Avoid blood thinners including aspirin, Advil, Motrin, Aleve, vitamin E, fish oil at least 2 wks prior to surgery. Antibiotic ointment to eyes and incisions four times a day after surgery for 1 week. No heavy lifting over 15 lbs or any strenuous exercise for 1 wk after surgery. Walking is okay after surgery. documented in this encounter [facility] 09-12-2022 History of Present illness Narrative NEW patient Pt c/o droopy lids Trouble reading, seeing TV and driving Holds up lids to improve vision Pt had testing in [place] and thinks she was improved but wants to come here A/P: Heavy upper eyelids Feels that eyelids block vision and sees better when lifted especially when driving and reading No double vision No issues eating/swallowing No H/o contact lens use Exam: Brow ptosis + skin on lashes, lash ptosis both eyes Frontalis use AL: 35, 36 LF: 15,15 Margin to reflex distance 1: 4, 4 Ptosis visual field diff: 16, 22 Pupils symmetric Extraocular movement full, no diplopia Left lower lid medial 1mm vascular lesion, flat, 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 Discussed options: - Can consider Botox for brow lift (lasts 3 mo, also cosmetic). Botox takes 1 week to set in lasts 3-4 mo, cost $12.50/unit, typical dose 25-35 units $300-450 Discussed risk of bruising, spread to cause droopy eyelid,double vision, rare allergic reaction, rare generalized weakness with neurological disorders eg. Eaton Lambert syndrome Consider bilateral upper lid blepharoplasty, will still have some heaviness 2/2 brow ptosis, but hopefully improved. Need certain amt of skin to close eyes. Plan: Bilateral upper lids blepharoplasty Mac 30 min Avoid aspirin, ibuprofen, nsaids, vitamin e , fish oil 2 wks prior and 1 wk post Stop multivitamin, Beaumont 3's, CoQ-10, 2 wks prior and 1 wk post Nothing to eat or drink 8 hrs prior to surgery except medicines day of with small sip of water Will need marine engine driver if having sedation surgery Can take arnica montana 5 day prior and 5 days post; bromelain as well for swelling For surgery [facility], call The patient was offered a surgery/procedure at a [facility] facility. The surgeon/proceduralist and patient have discussed in detail the risk of exposure to and/or potential harm posed by the COVID-19 virus with having a surgery/procedure at this time versus the risk of delaying the surgery/procedure. It is not possible to know either the risk of delaying the surgery or procedure or chance of getting an infection with perfect accuracy, but a joint decision was made between the patient and the surgeon/proceduralist to proceed at this time with the scheduled surgery/procedure as indicated on the consent form. An extensive discussion of the risks, benefits, alternatives of the above surgeries was conducted with the patient. The patient understood the risks including, but not limited to: bleeding, infection, scarring, asymmetry, need for future additional surgery, poor cosmesis, worsening dry eyes, orbital hemorrhage causing loss of vision, nerve damage, muscle damage, double vision, complications of anesthesia including loss of life. Discussed with patient these surgeries in most cases are performed with resident and/or fellow participation at the level deemed fit by Dr. Chavez. Patient verbalizes an understanding. The patient wished to proceed with surgery. Post operative course reviewed. 1-2 wks of bruising and swelling. Ice compresses (ie: frozen peas in Ziploc bag with cloth between bag and skin) for15 min every hour for the first 3 days after surgery; then warm compresses as needed for bruising (from post op days 3-7) Avoid blood thinners including aspirin, Advil, Motrin, Aleve, vitamin E, fish oil at least 2 wks prior to surgery. Antibiotic ointment to eyes and incisions four times a day after surgery for 1 week. No heavy lifting over 15 lbs or any strenuous exercise for 1 wk after surgery. Walking is okay after surgery. The documentation for this note was completed by Natalya Abebe APRN, CNP acting as a scribe for Renee Chavez MD. 09/12/2022 3:08 PM. I have confirmed and edited as necessary the relevant ophthalmic history, ROS, and the neuro exam findings as obtained by others. I have seen and examined Moira Suh. I have discussed the case and the management of this patient's care with the Resident/Fellow, if applicable. I also have reviewed and agree with the assessment and plan as stated above and agree with all of its relevant components. I, Renee Chavez MD, personally performed the services described in this documentation. All medical record entries made by the scribe were at my direction and in my presence. I have reviewed the chart and discharge instructions (if applicable) and agree that the record reflects my personal performance and is accurate and complete. Electronically Signed: Renee Chavez MD, September 12, 2022 3:08 PM. documented in this encounter [facility] 09-11-2022 History of Present illness Narrative POPULATION HEALTH NAVIGATION OUTREACH Action/FYI Past due for mammogram, colonoscopy, AD, wellness visit. LVM, Beaker message sent Patient Identified by Name and : NO Outreach Outcome/Action Unable to reach patient: Left message [employer] message sent Did you use a PCP flex slot to schedule this appointment? N/A Reason for Outreach Care Gap or Scheduling/Wellness visits Payer: Payor: SAM [employer] AND [employer] / Plan: [employer] HMO / Product Type: HMO / Care Gap Reviewed:: Annual Wellness visit Breast Cancer screening Colorectal Cancer Screening Reminder: Reminder note to check Health Maintenance for items below Health Maintenance items due: HEPATITIS C SCREENING Never done SHINGRIX VACCINE(1 of 2) Never done DTAP,TDAP,TD(1 - Tdap) due on 11/22/2004 BONE DENSITY Never done PNEUMOCOCCAL: 65+(1 - PCV) Never done MAMMOGRAM due on 12/21/2019 COLORECTAL CANCER SCREENING due on 12/21/2019 COVID-19 VACCINE(4 - Pfizer series) due on 04/01/2021 ADVANCE DIRECTIVE DISCUSSION Never done DEPRESSION ASSESSMENT Never done Navigation Signature: Jose R Markham September 11, 2022 12:22 PM documented in this encounter [facility] 08-29-2022 Miscellaneous Notes Patient leaves for trip on Sunday Morning and does not have any refills left Date of last office visit : 03/23/2022- [place] Date of next office visit : Visit date not found Patient leaves for trip on Sunday and does not have any refills left Pharmacy verified in [facility] Patient has been identified by name and date of : Yes Patient aware RX will be sent to pharmacy. No need to notify patient. Patient phones for refill(s): Requested Prescriptions No prescriptions requested or ordered in this encounter Date of last office visit : 03/23/2022 Date of next office visit : Visit date not found Last 2 Encounter Wt Readings: Date: Wt: 03/23/2022 96 kg (211 lb 9.6 oz) 11/23/2021 95 kg (209 lb 6.4 oz) Not applicable Please advise. Luz Marina Hand documented in this encounter [facility] 06-26-2022 History of Present illness Narrative POPULATION HEALTH NAVIGATION OUTREACH Action/FYI Spoke with patient Declines to schedule wellness, colonoscopy or mammogram Patient Identified by Name and : YES, via phone Outreach Outcome/Action Spoke to patient / parent / legal guardian: Patient declined Did you use a PCP flex slot to schedule this appointment? 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 / Plan: SAM [employer] HMO / Product Type: HMO / Care Gap Reviewed:: Annual Wellness visit Breast Cancer screening Colorectal Cancer Screening Reminder: Reminder note to check Health Maintenance for items below Health Maintenance items due: HEPATITIS C SCREENING Never done SHINGRIX VACCINE(1 of 2) Never done DTAP,TDAP,TD(1 - Tdap) due on 11/22/2004 BONE DENSITY Never done PNEUMOCOCCAL: 65+(1 - PCV) Never done MAMMOGRAM due on 12/21/2019 COLORECTAL CANCER SCREENING due on 12/21/2019 COVID-19 VACCINE(4 - Booster for Pfizer series) due on 04/01/2021 ADVANCE DIRECTIVE DISCUSSION Never done DEPRESSION ASSESSMENT Never done Navigation Signature: Alecia Bangura Population Health Navigator June 26, 2022 10:41 AM documented in this encounter [facility] 06-05-2022 History of Present illness Narrative Azalea Álvarez PA-C Department of Orthopaedics Orthopaedics [address] [facility] [address] Dept: [phone] Dept June 05, 2022 CHIEF COMPLAINT: Established Patient, Swelling, and Knee Pain of the Right Knee and Established Patient, Swelling, and Knee Pain of the Left Knee Ms. Moira Suh is a 72 year old female who presents with continued bilateral knee pain which has been worsening over the past several months, patient is very frustrated, cannot do anything. She gets sudden sharp stabbing pains when she pivots. She is unable to enjoy day-to-day activities like riding her horse and taking hikes with her family. She tried an oral anti-inflammatory which she did not find to be beneficial, she declines corticosteroid injection. She presents today stating that she would like to discuss a total knee arthroplasty. ASSESSMENT: M17.0 Primary osteoarthritis of both knees (primary encounter diagnosis) M25.561, M25.562, G89.29 Chronic pain of both knees PLAN: We reviewed her surgical options. It looks like she will need to see her hat band attacher to complete a stress test which was recently ordered, she will likely need cardiac clearance as well. We will get her an office visit with Dr. Rivera to discuss total knee arthroplasty. Ms. Moira Suh was advised as to contrast therapies and/or to take analgesics/anti-inflammatories as needed and all contraindications were reviewed. OBJECTIVE: Ms. Moira Suh is a pleasant 72 year old in no apparent distress. Gen:There were no vitals taken for this visit. nl development, non obese, no deformities ENT: Normocephalic, normal hearing, moist mucosa CV: Pulses:DP/PT= 2+ and symmetric, capillary refill < 2 secs, no peripheral edema/varicosities Skin: no rash, bruising or lesions. Good turgor. Psych: cooperative and appropriate, alert and oriented x 3, good mood and affect. Musculoskeletal: KNEE EXAM: Left: Alignment: Fixed Varus Range of motion is lacking a few degrees secondary to tight hamstrings degrees in extension and 100 degrees of flexion. Extension Lag: < 10 degrees Pain with ROM: Yes Effusion: Slight Tender to the palpation of Posterior Knee, Medial femoral condyle, and Medial joint line Pain with patellar compression: Yes Stability: Anterior/Posterior stable and Varus/Valgus stable Hip Exam: flexion to 100+ degrees, full extension, internal/external rotation adequate, and no pain with log roll Neurovascular Status: Sensation Intact, Moves foot and ankle up & down, and 2+ dorsalis pedis Imaging: IMPRESSION: Osteoarthritis in both knees, severe in the medial compartments. Churn Drill Operator: BRENNAN Transcribe Date/Time: Jul 11 2021 12:44P Dictated by : ERIC MALCOLM DO This examination was interpreted and the report reviewed and electronically signed by: ERIC MALCOLM DO on Jul 11 2021 12:49PM EST Results-Findings * * *Final Report* * * DATE OF EXAM: Jul 11 2021 12:01PM WRX [id number] - XR KNEE 4V AP/PA/LAT/MERCH TOMASA / PROCEDURE REASON: Pain * * * * Physician Interpretation * * * * EXAMINATION: XR KNEE 4V AP/PA/LAT/MERCH TOMASA PATIENT/TECHNOLOGIST PROVIDED HISTORY: Chronic diffuse bilateral knee pain increasing over time. Pt did fall last week and has increased pain in the left medial knee. CLINICAL INFORMATION: 71 years old Female with Pain TECHNIQUE: XR KNEE 4V AP/PA/LAT/MERCH TOMASA Laterality: BILATERAL Number of different views (projections): 4 views of each knee. COMPARISON: None RESULT: Right knee: Tricompartmental osteoarthritis, severe in the medial compartment with dpbc-sj-ivef contact and mild-moderate in the patellofemoral compartment. Small joint effusion with intra-articular bodies in the suprapatellar recess. Genu varus and mild lateral tibial translation. No fracture. Left knee: Tricompartmental osteoarthritis, severe in the medial compartment with fsyj-eo-msmb contact and mild-moderate in the patellofemoral compartment. Genu varus and mild lateral tibial translation. Small joint effusion. No fracture. Surgical clips in the medial soft tissues. Supporting Subjective Information Below: Past Surgical History: PAST SURGICAL HISTORY Procedure Laterality Date CORONARY ARTERY BYPASS GRAFT HX 2015 3 vessel FNA WITH IMAGING 11/27/12 U/S FNA bilateral thyroid PAST SURGICAL HISTORY OF age 28 1 ovary removed, 1 tube reconstructed from ectopic PAST SURGICAL HISTORY OF age 20 tendon repairs to wrists after going through glass door PAST SURGICAL HISTORY OF removal of uterine polyp Medications: Current Outpatient Medications Medication Sig metoprolol succinate ER (TOPROL XL) 25 mg 24 hr tablet Take 1 tablet by mouth once daily. sdsjiua-kpmu-oview-oreg-capryl 100 mg-150 mg- 50 mg-150 mg cap Take 1 tablet by mouth twice daily. guaifen/dextromethorphan/pe (GUAPHEN FORTE ORAL) Take 1 capsule by mouth once daily. Unknown units MAGNESIUM ORAL Take 135 Units by mouth once daily. Takes 6 capsules daily ascorbic acid, vitamin C, (VITAMIN C) 500 mg tablet Take 2,000 mg by mouth once daily. B-Complex Plus (Pure Encapsulations) - 1qD stress/energy/hormones/detox/weigh t loss Take 1 capsule by mouth once daily. CoQ10, Liposomal Ubiquinol, 200 mg cap Take 1 capsule by mouth daily with food. cholecalciferol (VITAMIN D3) 1,000 unit tab tablet Take 1,000 Units by mouth once daily. OmegaGenics EPA-DHA 2400 (High Concentrate EPA/DHA liquid) (LearnSomething) Take one teaspoon (5 ml) 1 times daily with food (Patient not taking: Reported on 06/05/2022) UltraNutrient (Pure Encapsulations) 3BID Multi-vitamin/coq10/milk thistle/turmeric/mina/alphalipoi c acid/B complex 3 capsules twice a day with meals Ther-Biotic Detoxification Support (Klaire/Prothera) probiotic (FRIDGE) Take 1 capsule by mouth once daily. OmegAvail NL8453 (TravelerCar) Take one softgel twice daily Current Facility-Administered Medications Medication Dose Route Frequency perflutren lipid microspheres 1.3 mL in NaCl (PF) 0.9% 10 mL injection (DEFINITY) INTRAVENOUS DIRECTED PRN sodium chloride 0.9 % (flush) 10 mL (BD POSIFLUSH) 10 mL INTRAVENOUS DIRECTED PRN Allergies: Atorvastatin Calcium, Codeine, and Crestor [Rosuvastatin Calcium] ROS: General (negative for fatigue, malaise, weight loss/gain) HEENT (negative for headache, earache, recent vision changes, sinus pain, sore throat) Respiratory (no recent shortness of breath, hemoptysis) CV (negative for chest tightness, palpitations) Musculoskeletal (see HPI) Psych (no depression, anxiety) This note was partially generated using [employer] voice recognition system, and there may be some incorrect words, spellings, and punctuation that were not noted in checking the note before saving. Azalea Álvarez PA-C AMB ROOMING INTAKE FLOWSHEET DATA Pain Pain Level: 7-8 Pain Location: Knee-Right Description: Sharp Frequency: Continuous Pain level: 7 Pain Location: Knee-left Description ; Sharp Frequency: continuous Patient presents with: Right Knee - Established Patient, Swelling, Knee Pain Left Knee - Established Patient, Swelling, Knee Pain Patient states while sitting in office today she has little pain. Paitent states she is unable to do activities such as walk up stairs, ride her horse. Go on hikes. Patient rates pain of right knee 7-8/10 and left knee 7. Flor Santiago LPN documented in this encounter [facility] 04-21-2022 Miscellaneous Notes Called pt for instructions and needs to reschedule. documented in this encounter [facility] 04-11-2022 History of Present illness Narrative POPULATION HEALTH NAVIGATION OUTREACH Action/ Due for: Mammogram Colonoscopy Flu shot Spoke with patient; declined HM and flu shot States she has an FOBT kit and will complete Patient Identified by Name and : YES, via phone Outreach Outcome/Action Spoke to patient / parent / legal guardian: Patient declined Did you use a PCP flex slot to schedule this appointment? N/A Reason for Outreach Care Gap or Scheduling/Wellness visits Payer: Payor: SAM [employer] AND BL[employer]ELD / Plan: [employer] HMO / Product Type: HMO / Care Gap Reviewed:: Breast Cancer screening Colorectal Cancer Screening Flu Vaccine Reminder: Reminder note to check Health Maintenance for items below Health Maintenance items due: HEPATITIS C SCREENING Never done SHINGRIX VACCINE(1 of 2) Never done DTAP,TDAP,TD(1 - Tdap) due on 11/22/2004 BONE DENSITY Never done PNEUMOCOCCAL: 65+(1 - PCV) Never done MAMMOGRAM due on 12/21/2019 COLORECTAL CANCER SCREENING due on 12/21/2019 COVID-19 VACCINE(4 - Booster for Pfizer series) due on 04/01/2021 INFLUENZA(1) Never done ADVANCE DIRECTIVE DISCUSSION Never done DEPRESSION ASSESSMENT Never done Navigation Signature: Chiqui Russell MA April 11, 2022 10:46 AM documented in this encounter [facility] 03-23-2022 Nurse Note 3 day Zio applied SN [id number] documented in this encounter [facility] 03-23-2022 Instructions Danielle Mart APRN.CNP - 03/23/2022 3:18 PM EST It was great to see you today, as we discussed: 1. For your increased heart rate / pounding sensation we will do several things Place 3 day event monitor to assess heart rate trend and any arrhythmias Schedule your stress test to assess for any blockages in the heart arteries that may be contributing Nonfasting lab work at your earliest convenience to assess thyroid, kidney function, an electrolytes I hear a small murmur on exam today for which we will update your echocardiogram 2. EKG in the office is normal today 3. Follow up in ~1 month documented in this encounter [facility] 03-23-2022 History of Present illness Narrative Images from the original note were not included. [facility] [place] [facility] [place] Department of Cardiovascular Medicine SECTION OF CLINICAL CARDIOLOGY OUTPATIENT VISIT DATE March 23, 2022 OUTPATIENT VISIT TYPE ESTABLISHED PRIMARY CARE PHYSICIAN: Silvestre Chance [address] [place] [address] CHIEF COMPLAINT: Increased heart rate HISTORY OF PRESENT ILLNESS: Ms. Suh is a 72 year old female with CAD s/p CABG x3 (07/2015), postoperative atrial fibrillation, HTN, HLD, multinodular goiter who presents today for a cardiovascular medicine follow-up visit. She was last seen in the office by Dr. Feldman on 10/26 at which time she was doing well from a cardiovascular standpoint at which time nuclear stress testing was recommended given she was 6 years out from CABG. Additionally given her history of elevated LP(a) her niacin was increased to 1500 mg daily. Plan was to continue with annual follow-up. She called into the office yesterday with concerns of sporadic increased heart rates. She reports for the last several days her resting heart rate will increase from the typical 60s to the 80s. She also notes HR increase up into the low 100s with minimal exertion such as walking from room to room which is unusual for her. She notes it does not happen consistently and appears to be sporadic in nature. This is accompanied with a pounding sensation in her chest. She denies any chest pain or shortness of breath. She monitors her heart rate frequently throughout the day with her smart watch. She has gained 40 lbs over the last 2 years and is currently working with functional medicine to lose weight by focusing on diet. She does not drink any caffeine or alcohol and denies any tobacco or elicit substance use. She is limited in physical activity due to significant knee arthralgias. She did not have the previously recommended nuclear stress test as she was worried about walking on the treadmill with her knees. She has not been monitoring her blood pressure at home as her machine is broken. She denies any chest pain, shortness of breath, lightheadedness, dizziness, presyncope, syncope, lower extremity edema, orthopnea, or PND. Subjective PAST MEDICAL HISTORY Diagnosis Date Atrial fibrillation (HCC) Coronary artery disease Holter monitor, abnormal extra beats Hypercholesteremia Hyperlipidemia Hypertension Insulin resistance 07/19/2017 Leiomyoma of uterus, unspecified Low HDL (under 40) PAST SURGICAL HISTORY Procedure Laterality Date CORONARY ARTERY BYPASS GRAFT HX 2016 3 vessel FNA WITH IMAGING 11/27/12 U/S FNA bilateral thyroid PAST SURGICAL HISTORY OF age 28 1 ovary removed, 1 tube reconstructed from ectopic PAST SURGICAL HISTORY OF age 20 tendon repairs to wrists after going through glass door PAST SURGICAL HISTORY OF removal of uterine polyp Social History Tobacco Use Smoking status: Former Packs/day: 1.00 Years: 10.00 Pack years: 10.00 Types: Cigarettes Smokeless tobacco: Never Vaping Use Vaping Use: Never used Substance Use Topics Alcohol use: No Comment: socially Drug use: No FAMILY HISTORY Problem Relation Age of Onset Prostate Cancer Father Thyroid Mother Hypertension Mother Thyroid Sister ALLERGIES: ALLERGIES Allergen Reactions Atorvastatin Calcium Myalgia Caused severe myalgias to bilateral thighs and across back Codeine Mental Status Change Can hear whats going on around her but she can't wake up Crestor [Rosuvastat* Myalgia 20 mg caused severe myalgias to upper thighs and across back MEDICATIONS: metoprolol succinate ER (TOPROL XL) 25 mg 24 hr tablet^Take 1 tablet by mouth once daily.^Disp: 90 tablet^Rfl: 3 cycucdd-gult-eozhb-oreg-capryl 100 mg-150 mg- 50 mg-150 mg cap^Take 1 tablet by mouth twice daily.^Disp: ^Rfl: OmegaGenics EPA-DHA 2400 (High Concentrate EPA/DHA liquid) (LearnSomething)^Take one teaspoon (5 ml) 1 times daily with food^Disp: ^Rfl: guaifen/dextromethorphan/pe (GUAPHEN FORTE ORAL)^Take 1 capsule by mouth once daily. Unknown units^Disp: ^Rfl: MAGNESIUM ORAL^Take 135 Units by mouth once daily. Takes 6 capsules daily^Disp: ^Rfl: ascorbic acid, vitamin C, (VITAMIN C) 500 mg tablet^Take 2,000 mg by mouth once daily.^Disp: ^Rfl: UltraNutrient (Pure Encapsulations) 3BID Multi-vitamin/coq10/milk thistle/turmeric/mina/alphalipoi c acid/B complex^3 capsules twice a day with meals^Disp: ^Rfl: 0 B-Complex Plus (Pure Encapsulations) - 1qD stress/energy/hormones/detox/weigh t loss^Take 1 capsule by mouth once daily.^Disp: ^Rfl: 0 CoQ10, Liposomal Ubiquinol, 200 mg cap^Take 1 capsule by mouth daily with food.^Disp: 120 capsule^Rfl: 2 cholecalciferol (VITAMIN D3) 1,000 unit tab tablet^Take 1,000 Units by mouth once daily.^Disp: ^Rfl: Ther-Biotic Detoxification Support (Klaire/Prothera) probiotic (SUNDGE)^Take 1 capsule by mouth once daily.^Disp: ^Rfl: 0 OmegAvail [id number] (TravelerCar)^Take one softgel twice daily^Disp: ^Rfl: REVIEW OF SYSTEMS: CARD: See HPI GENERAL: Negative for: Weight loss or gain, Fever and/or Chills HEENT: Negative for: Headache, Impaired Vision, Glasses, Hearing Impairment, Ringing in Ears, Nosebleeds, Bleeding Gums NECK: Negative for: Swelling, Pain, Stiffness RESPIRATORY: Negative for: Cough, Blood in Sputum, Shortness of breath, Wheezing, Apnea GASTROINTESTINAL: Negative for: Nausea, Vomiting, Diarrhea, Blood in stool, or Dark black stools MUSCULOSKELETAL: +Arthralgias NEUROLOGIC: Negative for: focal numbness/weakness, headaches, visual changes, ataxia, speech/language loss SKIN: Negative for: Rashes, Itching HEMATOLOGICAL/LYMPHATIC: Negative for: Easy bruising , Easy bleeding ENDOCRINE: Negative for: Heat or cold intolerance, Excessive sweating, Frequent urination, Frequent thirst Objective PHYSICAL EXAMINATION: BP 143/78 Pulse 83 Resp 16 Ht 166.4 cm (5' 5.5) Wt 96 kg (211 lb 9.6 oz) SpO2 98% BMI 34.68 kg/m General: Well appearing, in no acute distress. Skin: No clubbing, no cyanosis. Eyes: Extra ocular movements intact Oropharynx: Teeth in good repair. Neck: No jugular venous distention, no carotid bruits, carotids have a normal upstroke. Lungs: Clear to auscultation bilaterally, no wheezing or rhonchi. Heart: Regular rhythm, S1, S2 normal, no S3, no S4, no heaves, no rub and 1/6 JORGE ALBERTO. No peripheral edema . Grade 2/4 distal pulses bilaterally. Abdomen: Soft, nontender, bowel sounds normal, no bruits. Neuro: Oriented to person, place and time, alert, cooperative, gait coordinated. CARDIOVASCULAR MEDICINE TESTING: Electrocardiogram 03/23/22: Normal sinus rhythm at 86 bpm I have personally reviewed the Electrocardiogram. PLAN AND RECOMMENDATIONS: 1. Palpitations - Described as pounding sensation - Sporadic increase in resting HR from 60 bpm to 80 bpm - Sporadic increase in HR with minimal exertion to low 100's - No associated symptoms - 3 day Zio event monitor - BMP, mag, TSH - Echocardiogram - Nuclear stress test 2. Coronary artery disease - Patient is s/p CABG x3 in setting of NSTEMI (LLANOS-LAD, SVG-LCx, and SVG-RCA) in 07/2015 - BOLANOS an angina at time of CABG - Patient appears compensated from cardiac standpoint - Continue ASA and BB as currently ordered - LDL above goal of <70 --> Intolerant to statins - Exercise MPI stress ordered at prior OV and pending completion - Resistant to aspirin therapy as she feels her blood is thin enough on tumeric and fish oil 3. Essential hypertension - Suboptimal control on metoprolol - Encouraged dietary sodium restriction/DASH diet - Reviewed risks of HTN and principles of treatment - Goal of BP <130/80 - Home BP log 4. Hyperlipidemia with history of LP(a) elevation - Currently on Niacin - Last lipid panel 03/2022 with LDL 133 and LP(a) 112 - Unable to tolerate statins due to severe myalgias - Will discuss PCSK9i at next OV 5. Postoperative atrial fibrillation - Documented AF postop CABG treated with amiodarone - Patient in NSR today - She reports suspected prior incidences of AF but none documented - [id number] score 4 (Age, gender, HTN, and vasc) - On no anticoagulation at this time given postoperative nature - Rate controlled on metoprolol CONCLUSION: Patient presents today with complaints of sporadic palpitations with increased resting and exertional heart rate with minimal exertion. EKG in the office today demonstrates normal sinus rhythm at 86 bpm. She does have a history of postoperative atrial fibrillation at the time of her CABG with no documented recurrence since. At this time we will place a 3-day Zio event monitor to assess for heart rate average and any dysrhythmias. Additionally we will obtain a baseline set of labs to assess electrolytes and thyroid function. There is a mild systolic ejection murmur noted on exam today and she has not had echocardiogram since 2017 thus will update this at this time to assess for any structural abnormality which may be contributing. Lastly she was recommended to have repeat nuclear stress testing at her last office visit which she has yet to schedule as she was worried about walking on the treadmill with her knee pain. We assured her that should she be unable to walk on the treadmill it would be converted to a pharmacological stress test. She was strongly encouraged to complete such given her new symptoms. She remains off aspirin at this time an is resistant to take such as she believes her blood is thin enough on turmeric and fish oil. Her most recent cholesterol profile is not under favorable control despite increase in niacin dosing. She is unable to tolerate statins due to severe myalgias. We will discuss starting a PCSK9i at her next office visit. We reviewed the importance of secondary prevention including aspirin and strict LDL control given her coronary history an associated risk. Her blood pressure is elevated in the office today however she reports typical optimal control at home. Her home blood pressure cuff broke in the last week and she will obtain a new one and start monitoring her blood pressure daily at home and let us know if it is consistently above goal. I have made no additions or changes to her medications. She should continue to actively engage in cardiovascular risk factor modification and follow up with me in 1 month following testing, or sooner should need arise. CONTACT INFORMATION: Danielle Mart APRN.SUMEET Cardiology Nurse Practitioner Section of Regional Cardiology [facility] Dept of Cardiovascular Medicine [facility] [place] [address] [place] [address] Office Office This note was partially generated using [employer] voice recognition system and may contain errors related to that system including grammar, punctuation, spelling, and words that may be inappropriate documented in this encounter [facility] 03-22-2022 Miscellaneous Notes Patient called, concerned because resting heart rate has been in the high 60s, maybe the low 70s and today it has been in the 80s, like 82 or 84 when I'm doing nothing. Denied any symptoms. Returned patient call, spoke with partner. Assurance provided that HR was within normal limits, and if she was not having any symptoms there was no cause for concern. 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 documented in this encounter [facility] 03-15-2022 Miscellaneous Notes Called PT talked to the about Very mild reduction in LDL to 133 from 163 and mild reduction in LP(a) at 112 although still significantly elevated. Patient unable to take statins therefore continue current Rx. Could consider PCSK9 injectable medication if patient desires. He will Talk to his to see how she feels about trying PCSK9 injections ----- Message from Sam Feldman DO sent at 03/14/2022 4:17 PM EST ----- Very mild reduction in LDL to 133 from 163 and mild reduction in LP(a) at 112 although still significantly elevated. Patient unable to take statins therefore continue current Rx. Could consider PCSK9 injectable medication if patient desires. documented in this encounter [facility] 12-08-2021 History of Present illness Narrative POPULATION HEALTH NAVIGATION OUTREACH Action/ Patient due for mammogram, colonoscopy, and flu Left voice mail for patient to call back. [employer] message sent. Pt identified by name and : NO Outreach Outcome/Action Unable to reach patient: Left message [employer] message sent Did you use a PCP flex slot to schedule this appointment? N/A Reason for Outreach Care Gap or Scheduling/Wellness visits Payer: Payor: [employer] CROSS AND BLUE [employer]IELD / Plan: [employer] HMO / Product Type: HMO / Care Gap Reviewed:: Breast Cancer screening Colorectal Cancer Screening Flu vaccine Reminder: Reminder note to check Health Maintenance for items below Health Maintenance items due: HEPATITIS C SCREENING Never done SHINGRIX VACCINE(1 of 2) Never done DTAP,TDAP,TD(1 - Tdap) due on 11/22/2004 BONE DENSITY Never done PNEUMOCOCCAL: 65+(1 - PCV) Never done MAMMOGRAM due on 12/21/2019 COLORECTAL CANCER SCREENING due on 12/21/2019 ADVANCE DIRECTIVE DISCUSSION Never done DEPRESSION ASSESSMENT Never done COVID-19 VACCINE(4 - Booster for Pfizer series) due on 04/01/2021 INFLUENZA(1) Never done LDL CHOLESTEROL due on 11/29/2021 Message Sent to Practice: No Navigation Signature: Ila Fried MA December 08, 2021 12:47 PM documented in this encounter [facility] 11-23-2021 History of Present illness Narrative Chief Complaint Patient presents with: Cyst: Vaginal HPI Moira Suh is a 71 year old female who presents here today for Above Complaints. Today: 3 nights ago had a burning feeling when she urinated, had a few drops of blood. With a mirror saw a couple little things there. Unsure when started. Since then has had no burning. Past medical history, appointments, medications, allergies reviewed. Previous Medical History PAST MEDICAL HISTORY Diagnosis Date Atrial fibrillation (HCC) Coronary artery disease Holter monitor, abnormal extra beats Hypercholesteremia Hyperlipidemia Hypertension Insulin resistance 07/19/2017 Leiomyoma of uterus, unspecified Low HDL (under 40) Previous Surgical History PAST SURGICAL HISTORY Procedure Laterality Date CORONARY ARTERY BYPASS GRAFT HX 2015 3 vessel FNA WITH IMAGING 11/27/12 U/S FNA bilateral thyroid PAST SURGICAL HISTORY OF age 28 1 ovary removed, 1 tube reconstructed from ectopic PAST SURGICAL HISTORY OF age 20 tendon repairs to wrists after going through glass door PAST SURGICAL HISTORY OF removal of uterine polyp Family History FAMILY HISTORY Problem Relation Age of Onset Prostate Cancer Father Thyroid Mother Hypertension Mother Thyroid Sister Patient Allergies ALLERGIES Allergen Reactions Atorvastatin Calcium Myalgia Caused severe myalgias to bilateral thighs and across back Codeine Mental Status Change Can hear whats going on around her but she can't wake up Crestor [Rosuvastat* Myalgia 20 mg caused severe myalgias to upper thighs and across back Current Medications Current Outpatient Medications on File Prior to Visit Medication Sig metoprolol succinate ER (TOPROL XL) 25 mg 24 hr tablet Take 1 tablet by mouth once daily. qjcgoht-hqiz-pzbpf-oreg-capryl 100 mg-150 mg- 50 mg-150 mg cap Take 1 tablet by mouth twice daily. OmegaGenics EPA-DHA 2400 (High Concentrate EPA/DHA liquid) (LearnSomething) Take one teaspoon (5 ml) 1 times daily with food guaifen/dextromethorphan/pe (GUAPHEN FORTE ORAL) Take 1 capsule by mouth once daily. Unknown units MAGNESIUM ORAL Take 135 Units by mouth once daily. Takes 6 capsules daily ascorbic acid, vitamin C, (VITAMIN C) 500 mg tablet Take 2,000 mg by mouth once daily. UltraNutrient (Pure Encapsulations) 3BID Multi-vitamin/coq10/milk thistle/turmeric/mina/alphalipoi c acid/B complex 3 capsules twice a day with meals B-Complex Plus (Pure Encapsulations) - 1qD stress/energy/hormones/detox/weigh t loss Take 1 capsule by mouth once daily. CoQ10, Liposomal Ubiquinol, 200 mg cap Take 1 capsule by mouth daily with food. cholecalciferol (VITAMIN D3) 1,000 unit tab tablet Take 1,000 Units by mouth once daily. Ther-Biotic Detoxification Support (Klaire/Prothera) probiotic (FRIDGE) Take 1 capsule by mouth once daily. OmegAvail [id number] (TravelerCar) Take one softgel twice daily Succimer (Bulk) 500 mg (CPD) Comments for compounding pharmacy: [facility] Take three 500mg tabs after First Morning Void. Then collect urine x 6 hours. Hepato-Thera Forte (Klaire/Prothera) liver/detox support Take 1 capsule by mouth three times daily. Homocysteine Papaikou (TravelerCar) Take 1 capsule by mouth daily with food. The Whole Probiotic (Productify) Take 1 capsule by mouth once daily. Treatment 3-6 months (Patient not taking: Reported on 11/23/2021) Buffered Ascorbic Acid capsules (Pure Encapsulations) - Vitamin C 2 capsules twice a day with or between meals (Patient not taking: Reported on 11/23/2021) Vitamin D [place]ou (TravelerCar) Take 1 capsule by mouth daily with food. (Patient not taking: No sig reported) Betaine HCL Pepsin (Pure Encapsulations) supports digestion of protein 15 min before meals- Start with one capsule and each protein meal work up (max 5) if you feel warmth or upset stomach back down to a lower dose and that is your dose for that size protein meal. niacin ER (NIASPAN) 500 mg tablet Take 1 tablet by mouth daily at bedtime. No current facility-administered medications on file prior to visit. Social History Social History Tobacco Use Smoking status: Former Packs/day: 1.00 Years: 10.00 Pack years: 10.00 Types: Cigarettes Smokeless tobacco: Never Vaping Use Vaping Use: Never used Substance Use Topics Alcohol use: No Comment: socially Drug use: No Review of Symptoms REVIEW OF SYSTEMS See HPI, otherwise negative EXAM: BP 138/80 (BP Site: Left Arm, BP Position: Sitting, BP Cuff Size: Regular Adult) Pulse 72 Wt 95 kg (209 lb 6.4 oz) SpO2 100% BMI 34.32 kg/m General Appearance: Well appearing, alert, in no acute distress, well-hydrated, well nourished.. Pelvic: External genitalia skin atrophied normal in color and texture, and vagina normal.. Health Maintenance List HEPATITIS C SCREENING Never done SHINGRIX VACCINE(1 of 2) Never done DTAP,TDAP,TD(1 - Tdap) due on 11/22/2004 BONE DENSITY Never done PNEUMOCOCCAL: 65+(1 - PCV) Never done MAMMOGRAM due on 12/21/2019 COLORECTAL CANCER SCREENING due on 12/21/2019 DEPRESSION SCREENING due on 12/21/2019 ANNUAL PCP TEAM CHRONIC DISEASE VISIT due on 02/22/2020 ADVANCE DIRECTIVE DISCUSSION Never done COVID-19 VACCINE(4 - Booster for Pfizer series) due on 06/05/2021 INFLUENZA(1) due on 11/03/2021 LDL CHOLESTEROL due on 11/29/2021 DIABETES SCREEN due on 11/30/2023 LIPID SCREEN due on 11/29/2025 Data reviewed Previous records, office notes ASSESSMENT/PLAN: If no improvement with clobetasol, will refer to [facility] for possible biopsy and/or removal. - CLOBETASOL 0.05 % TOPICAL OINTMENT Kianna Marques APRN.SUMEET documented in this encounter [facility] 10-26-2021 History of Present illness Narrative Images from the original note were not included. Heart and Vascular [place] [facility] Department of Cardiovascular Medicine SECTION OF [facility] OUTPATIENT VISIT DATE October 26, 2021 OUTPATIENT VISIT TYPE NEW PATIENT Name: Moira Suh : 1950 Date: October 26, 2021 PRIMARY CARE PHYSICIAN: Silvestre Chance [address] [place] [address] REFERRING PHYSICIAN: Silvestre Chance [address] [facility] [address] CHIEF COMPLAINT: Consult IMPRESSION / PLAN: 1. Coronary disease status post coronary bypass grafting x3 in 2016. Patient is doing very well with no evidence of anginal symptoms and actually did not have any evidence of anginal symptoms at the time of her presentation. I will perform exercise nuclear stress testing for further evaluation since she is now 6 years post bypass and was asymptomatic at the time of her presentation. 2. Hypertension. Patient is well controlled on metoprolol and prescription refilled. 3. Hyperlipidemia with history of LP(a) elevation. Patient responded to niacin in the past with a significant reduction in the LP(a). She will increase her niacin to 1500 mg daily and will recheck a LP(a) in 3 months along with lipids and liver function test. 4. Paroxysmal atrial fibrillation. Patient did develop postoperative atrial fibrillation following bypass surgery and feels that she had atrial fibrillation for several years predominantly occurring after she wakes up from sleep or naps but has not occurred for approximately year and a half. She does state that slow deep breathing resolve the atrial fibrillation. She did purchase a Fitbit but recommended an android watch instead if possible. Follow Up Instructions Return for Follow Up Pending Diagnostic Test. ORDERS FOR TODAY'S VISIT: Office Visit on 10/26/21 NM CARDIAC PERF STRESS/EXERCISE HEPATIC FUNCTION PNL LIPID PANEL BASIC LIPOPROTEIN (A) HISTORY OF PRESENT ILLNESS: Ms. 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 Patient's been doing very well from a clinical standpoint with no complaints of chest pain, shortness of breath, syncope or near syncope or lower extremity edema. She admits to rare palpitations. PAST MEDICAL HISTORY Diagnosis Date Atrial fibrillation (HCC) Coronary artery disease Holter monitor, abnormal extra beats Hypercholesteremia Hyperlipidemia Hypertension Insulin resistance 07/19/2017 Leiomyoma of uterus, unspecified Low HDL (under 40) PAST SURGICAL HISTORY Procedure Laterality Date CORONARY ARTERY BYPASS GRAFT HX 2016 3 vessel FNA WITH IMAGING 11/27/12 U/S FNA bilateral thyroid PAST SURGICAL HISTORY OF age 28 1 ovary removed, 1 tube reconstructed from ectopic PAST SURGICAL HISTORY OF age 20 tendon repairs to wrists after going through glass door PAST SURGICAL HISTORY OF removal of uterine polyp SOCIAL HISTORY Social History Tobacco Use Smoking status: Former Packs/day: 1.00 Years: 10.00 Pack years: 10.00 Types: Cigarettes Smokeless tobacco: Never Vaping Use Vaping Use: Never used Substance Use Topics Alcohol use: No Comment: socially Drug use: No FAMILY HISTORY Problem Relation Age of Onset Prostate Cancer Father Thyroid Mother Hypertension Mother Thyroid Sister ALLERGIES: ALLERGIES Allergen Reactions Atorvastatin Calcium Myalgia Caused severe myalgias to bilateral thighs and across back Codeine Mental Status Change Can hear whats going on around her but she can't wake up Crestor [Rosuvastat* Myalgia 20 mg caused severe myalgias to upper thighs and across back MEDICATIONS: metoprolol succinate ER (TOPROL XL) 25 mg 24 hr tablet Take 1 tablet by mouth once daily. ivnhwsw-xgfw-iezwc-oreg-capryl 100 mg-150 mg- 50 mg-150 mg cap Take 1 tablet by mouth twice daily. MAGNESIUM ORAL Take 135 Units by mouth once daily. Takes 6 capsules daily ascorbic acid, vitamin C, (VITAMIN C) 500 mg tablet Take 2,000 mg by mouth once daily. UltraNutrient (Pure Encapsulations) 3BID Multi-vitamin/coq10/milk thistle/turmeric/mina/alphalipoi c acid/B complex 3 capsules twice a day with meals B-Complex Plus (Pure Encapsulations) - 1qD stress/energy/hormones/detox/weigh t loss Take 1 capsule by mouth once daily. CoQ10, Liposomal Ubiquinol, 200 mg cap Take 1 capsule by mouth daily with food. cholecalciferol (VITAMIN D3) 1,000 unit tab tablet Take 1,000 Units by mouth once daily. OmegAvail [id number] (TravelerCar) Take one softgel twice daily Succimer (Bulk) 500 mg (CPD) Comments for compounding pharmacy: [facility] Take three 500mg tabs after First Morning Void. Then collect urine x 6 hours. OmegaGenics EPA-DHA 2400 (High Concentrate EPA/DHA liquid) (LearnSomething) Take one teaspoon (5 ml) 1 times daily with food guaifen/dextromethorphan/pe (GUAPHEN FORTE ORAL) Take 1 capsule by mouth once daily. Unknown units Hepato-Thera Forte (Klaire/Prothera) liver/detox support Take 1 capsule by mouth three times daily. Homocysteine [place]ou (TravelerCar) Take 1 capsule by mouth daily with food. The Whole Probiotic (Productify) Take 1 capsule by mouth once daily. Treatment 3-6 months Buffered Ascorbic Acid capsules (Pure Encapsulations) - Vitamin C 2 capsules twice a day with or between meals (Patient taking differently: 2 capsules twice a day with or between meals) Vitamin D [place] (TravelerCar) Take 1 capsule by mouth daily with food. (Patient not taking: No sig reported) Ther-Biotic Detoxification Support (Klaire/Prothera) probiotic (FRIDGE) Take 1 capsule by mouth once daily. Betaine HCL Pepsin (Pure Encapsulations) supports digestion of protein 15 min before meals- Start with one capsule and each protein meal work up (max 5) if you feel warmth or upset stomach back down to a lower dose and that is your dose for that size protein meal. niacin ER (NIASPAN) 500 mg tablet Take 1 tablet by mouth daily at bedtime. REVIEW OF SYSTEMS: GENERAL: Negative for: Weight loss or gain, Fever or Chills NECK: Negative for: Swelling, Pain, Stiffness RESPIRATORY: Negative for: Cough, Blood in Sputum GASTROINTESTINAL: Negative for: Trouble swallowing, Heartburn, Change in bowel habits, Blood in stool, Dark black stools MUSCULOSKELETAL: Negative for: Severe Muscle or joint pain, Stiffness , Joint swelling NEUROLOGIC/PSYCHIATRIC: Negative for: Paralysis, Numbness, Tingling, Tremor SKIN: Negative for: Rashes, Itching HEMATOLOGICAL/LYMPHATIC: Negative for: Easy bruising , Easy bleeding ENDOCRINE: Negative for: Heat or cold intolerance, Excessive sweating, Frequent urination All other review of systems, per history of present illness. PHYSICAL EXAMINATION: BP 136/80 Pulse 71 Ht 166.4 cm (5' 5.5) Wt 94.8 kg (209 lb) SpO2 98% BMI 34.25 kg/m Last 2 Encounter Wt Readings: Date: Wt: 08/18/2020 91.8 kg (202 lb 6.4 oz) 03/11/2019 86.5 kg (190 lb 9.6 oz) General: Well appearing, in no acute distress. Skin: No clubbing, no cyanosis. Eyes: Extra ocular movements intact Oropharynx: No gross abnormalities Neck: No jugular venous distention, no carotid bruits, carotids have a normal upstroke, no palpable thyromegaly. Lungs: Clear to auscultation bilaterally, no wheezing or rhonchi. Heart: Regular rhythm, PMI not displaced, S1, S2, no S3, no S4, no heaves, no murmur. Abdomen: Soft, nontender, bowel sounds normal, no palpable organomegaly, no bruits. Extremities: No peripheral edema . +2 distal pulses bilaterally. Neuro: Oriented to person, place and time, alert, cooperative, gait coordinated. CARDIOVASCULAR MEDICINE TESTING: None today Sam Feldman DO, [facility] Staff Hand Candy Molder Sam and Jaleesa Coughlin Dept. of Cardiovascular Medicine Heart, Vascular and Thoracic [place], [facility] This document was generated using the assistance of voice recognition software. If there are any errors of spelling, grammar, syntax or meaning, please feel free to contact me directly at anytime. documented in this encounter [facility] 09-28-2021 History of Present illness Narrative POPULATION HEALTH NAVIGATION OUTREACH Action/FYI P/C to patient to address open care gaps, no answer. Left message for patient to return call. My Chart message sent. Pt identified by name and : NO Outreach Outcome/Action Unable to reach patient: Left message MyChart message sent Did you use a PCP flex slot to schedule this appointment? N/A Reason for Outreach Care Gap or Scheduling/Wellness visits Payer: Payor: SAM [employer] / Plan: [employer] HMO / Product Type: HMO / Care Gap Reviewed:: Annual Wellness visit Breast Cancer screening Colorectal Cancer Screening Reminder: Reminder note to check Health Maintenance for items below Health Maintenance items due: HEPATITIS C SCREENING Never done SHINGRIX VACCINE(1 of 2) Never done DTAP,TDAP,TD(1 - Tdap) due on 11/22/2004 BONE DENSITY Never done PNEUMOCOCCAL: 64+(1 - PCV) Never done MAMMOGRAM due on 12/21/2019 COLORECTAL CANCER SCREENING due on 12/21/2019 DEPRESSION SCREENING due on 12/21/2019 ANNUAL PCP TEAM CHRONIC DISEASE VISIT due on 02/22/2020 ADVANCE DIRECTIVE DISCUSSION Never done COVID-19 VACCINE(4 - Booster for Pfizer series) due on 06/05/2021 Message Sent to Practice: No Navigation Signature: Bryanna Butler MA September 28, 2021 1:52 PM documented in this encounter [facility] 09-26-2021 Miscellaneous Notes Summary: strange heart beat Patient was camping in [place], and had a couple of things happen. Reports two episodes of waking up in the middle of the night drenched in sweat, and HR on Fitbit was 88. Also had episode of suddenly waking up with HR 55. Denies any other symptoms beyond that. Would like to wear a monitor - has had several orders placed but never worn one. Suggested she discuss it with Dr. Feldman at her upcoming appointment. No identifiable need for urgent/emergent appointment to be worked into schedule at this time. documented in this encounter [facility] 08-29-2021 Miscellaneous Notes KYRA: 08/18/2020 [place] NOV: 10/26/2021 [place] Patient is calling to inquire if she may get this RX filled today and sent to [facility]. She states without medication she goes into AFIB. Would Betzaida Crowell or Radha Rayo be able to refill d/t Dr. Feldman being out of office. Please advise and call patient. Thank you Patient is out of medication Patient has been identified by name and date of : Yes Pending Prescriptions Disp Refills METOPROLOL SUCCINATE ER 25 MG TABLET,EXTENDED RELEASE 24 HR 90 tablet 3 Sig: Take 1 tablet by mouth once daily. GISSELLE: No RX INSTRUCTIONS: Patient aware RX will be sent to pharmacy. No need to notify patient. Salma Maxwell documented in this encounter [facility] 07-11-2021 History of Present illness Narrative Radiology Service Progress Note PATIENT NAME: Moira Suh DATE OF SERVICE: July 11, 2021 TIME: 11:47 AM PATIENT IDENTITY VERIFICATION COMPLETED USING TWO (2) IDENTIFIERS: Name and Date of confirmed by patient verbally. FALL SCREENING: Has the patient had 2 falls in the last year or 1 fall with injury or currently using an Ambulatory Assistive Device (Walker, Cane, Wheelchair, Crutches, etc.)? No PATIENT GENDER DATA: Female. status: : No status: NO. PATIENT RELEVANT IMPLANT DATA REVIEWED: Yes RADIOLOGY DEPARTMENT: General X-ray: Exam(s) Completed: Lower Extremity X-Ray(s): Knee, AP / Lat / Tunne / Merchant Bilateral and Wt. Bearing PERIPHERAL IV DATA: Not applicable SIGNED BY: RT Saw(R) July 11, 2021 11:47 AM documented in this encounter [facility] 10-15-2015 History of Past i llness Narrative Problem Noted Date Resolved Date Cardiomyopathy, ischemic 10/15/2015 020 Moderate mitral regurgitation 10/15/2015 Obesity 10/15/2015 04/12/2017 documented as of this encounter (statuses as of 07/12/2021) [facility] History of Past illness Narrative* Problem Noted Date Resolved Date Cardiomyopathy, ischemic 10/15/2015 020 Moderate mitral regurgitation 10/15/2015 Obesity 10/15/2015 04/12/2017 documented as of this encounter (statuses as of 08/29/2021) [address]2016 History of Past illness Narrative* Problem Noted Date Resolved Date Cardiomyopathy, ischemic 10/15/2015 020 Moderate mitral regurgitation 10/15/2015 Obesity 10/15/2015 04/12/2017 documented as of this encounter (statuses as of 09/05/2021) [address]2016 History of Past illness Narrative* Problem Noted Date Resolved Date Cardiomyopathy, ischemic 10/15/2015 020 Moderate mitral regurgitation 10/15/2015 Obesity 10/15/2015 04/12/2017 documented as of this encounter (statuses as of 09/26/2021) [address]2016 History of Past illness Narrative* Problem Noted Date Resolved Date Cardiomyopathy, ischemic 10/15/2015 020 Moderate mitral regurgitation 10/15/2015 Obesity 10/15/2015 04/12/2017 documented as of this encounter (statuses as of 09/28/2021) [address]2016 History of Past illness Narrative* Problem Noted Date Resolved Date Cardiomyopathy, ischemic 10/15/2015 020 Moderate mitral regurgitation 10/15/2015 Obesity 10/15/2015 04/12/2017 documented as of this encounter (statuses as of 10/26/2021) [facility] History of Past illness Narrative* Problem Noted Date Resolved Date Cardiomyopathy, ischemic 10/15/2015 020 Moderate mitral regurgitation 10/15/2015 Obesity 10/15/2015 04/12/2017 documented as of this encounter (statuses as of 11/23/2021) [address]2016 History of Past illness Narrative* Problem Noted Date Resolved Date Cardiomyopathy, ischemic 10/15/2015 020 Moderate mitral regurgitation 10/15/2015 Obesity 10/15/2015 04/12/2017 documented as of this encounter (statuses as of 12/08/2021) [address]2016 History of Past illness Narrative* Problem Noted Date Resolved Date Cardiomyopathy, ischemic 10/15/2015 020 Moderate mitral regurgitation 10/15/2015 Obesity 10/15/2015 04/12/2017 documented as of this encounter (statuses as of 03/15/2022) [address]2016 History of Past illness Narrative* Problem Noted Date Resolved Date Cardiomyopathy, ischemic 10/15/2015 020 Moderate mitral regurgitation 10/15/2015 Obesity 10/15/2015 04/12/2017 documented as of this encounter (statuses as of 03/22/2022) [address]2016 History of Past illness Narrative* Problem Noted Date Resolved Date Cardiomyopathy, ischemic 10/15/2015 020 Moderate mitral regurgitation 10/15/2015 Obesity 10/15/2015 04/12/2017 documented as of this encounter (statuses as of 03/23/2022) [address]2016 History of Past illness Narrative* Problem Noted Date Resolved Date Cardiomyopathy, ischemic 10/15/2015 020 Moderate mitral regurgitation 10/15/2015 Obesity 10/15/2015 04/12/2017 documented as of this encounter (statuses as of 04/12/2022) [address]2016 History of Past illness Narrative* Problem Noted Date Resolved Date Cardiomyopathy, ischemic 10/15/2015 020 Moderate mitral regurgitation 10/15/2015 Obesity 10/15/2015 04/12/2017 documented as of this encounter (statuses as of 04/21/2022) [address]2016 History of Past illness Narrative* Problem Noted Date Resolved Date Cardiomyopathy, ischemic 10/15/2015 020 Moderate mitral regurgitation 10/15/2015 Obesity 10/15/2015 04/12/2017 documented as of this encounter (statuses as of 06/05/2022) [address]2016 History of Past illness Narrative* Problem Noted Date Resolved Date Cardiomyopathy, ischemic 10/15/2015 020 Moderate mitral regurgitation 10/15/2015 Obesity 10/15/2015 04/12/2017 documented as of this encounter (statuses as of 06/26/2022) [address]2016 History of Past illness Narrative* Problem Noted Date Resolved Date Cardiomyopathy, ischemic 10/15/2015 020 Moderate mitral regurgitation 10/15/2015 Obesity 10/15/2015 04/12/2017 documented as of this encounter (statuses as of 07/06/2022) [facility] History of Past illness Narrative* Problem Noted Date Resolved Date Cardiomyopathy, ischemic 10/15/2015 020 Moderate mitral regurgitation 10/15/2015 Obesity 10/15/2015 04/12/2017 documented as of this encounter (statuses as of 08/07/2022) [facility] History of Past illness Narrative* Problem Noted Date Resolved Date Cardiomyopathy, ischemic 10/15/2015 020 Moderate mitral regurgitation 10/15/2015 Obesity 10/15/2015 04/12/2017 documented as of this encounter (statuses as of 08/29/2022) [facility] History of Past illness Narrative* Problem Noted Date Diagnosed Date Resolved Date Cardiomyopathy, ischemic 10/15/201509/2019 Moderate mitral regurgitation 10/15/2015 04/26/2016 Obesity 10/15/2015 04/12/2017 documented as of this encounter (statuses as of 09/11/2022) [facility] History of Past illness Narrative* Problem Noted Date Diagnosed Date Resolved Date Cardiomyopathy, ischemic 10/15/201509/2019 Moderate mitral regurgitation 10/15/2015 04/26/2016 Obesity 10/15/2015 04/12/2017 documented as of this encounter (statuses as of 09/13/2022) [facility] History of Past illness Narrative* Problem Noted Date Diagnosed Date Resolved Date Cardiomyopathy, ischemic 10/15/201509/2019 Moderate mitral regurgitation 10/15/2015 04/26/2016 Obesity 10/15/2015 04/12/2017 documented as of this encounter (statuses as of 10/04/2022) [facility] History of Past illness Narrative* Problem Noted Date Diagnosed Date Resolved Date Cardiomyopathy, ischemic 10/15/201509/2019 Moderate mitral regurgitation 10/15/2015 04/26/2016 Obesity 10/15/2015 04/12/2017 documented as of this encounter (statuses as of 10/06/2022) [address]2016 History of Past illness Narrative* Problem Noted Date Diagnosed Date Resolved Date Cardiomyopathy, ischemic 10/15/201509/2019 Moderate mitral regurgitation 10/15/2015 04/26/2016 Obesity 10/15/2015 04/12/2017 documented as of this encounter (statuses as of 10/06/2022) [address]2016 History of Past illness Narrative* Problem Noted Date Diagnosed Date Resolved Date Cardiomyopathy, ischemic 10/15/201509/2019 Moderate mitral regurgitation 10/15/2015 04/26/2016 Obesity 10/15/2015 04/12/2017 documented as of this encounter (statuses as of 10/11/2022) [address]2016 History of Past illness Narrative* Problem Noted Date Diagnosed Date Resolved Date Cardiomyopathy, ischemic 10/15/201509/2019 Moderate mitral regurgitation 10/15/2015 04/26/2016 Obesity 10/15/2015 04/12/2017 documented as of this encounter (statuses as of 10/17/2022) [address]2016 History of Past illness Narrative* Problem Noted Date Diagnosed Date Resolved Date Cardiomyopathy, ischemic 10/15/201509/2019 Moderate mitral regurgitation 10/15/2015 04/26/2016 Obesity 10/15/2015 04/12/2017 documented as of this encounter (statuses as of 10/17/2022) [address]2016 History of Past illness Narrative* Problem Noted Date Diagnosed Date Resolved Date Cardiomyopathy, ischemic 10/15/201509/2019 Moderate mitral regurgitation 10/15/2015 04/26/2016 Obesity 10/15/2015 04/12/2017 documented as of this encounter (statuses as of 10/17/2022) [address]2016 History of Past illness Narrative* Problem Noted Date Diagnosed Date Resolved Date Cardiomyopathy, ischemic 10/15/201509/2019 Moderate mitral regurgitation 10/15/2015 04/26/2016 Obesity 10/15/2015 04/12/2017 documented as of this encounter (statuses as of 10/20/2022) [address]2016 History of Past illness Narrative* Problem Noted Date Diagnosed Date Resolved Date Cardiomyopathy, ischemic 10/15/201509/2019 Moderate mitral regurgitation 10/15/2015 04/26/2016 Obesity 10/15/2015 04/12/2017 documented as of this encounter (statuses as of 10/27/2022) [address]2016 History of Past illness Narrative* Problem Noted Date Diagnosed Date Resolved Date Cardiomyopathy, ischemic 10/15/201509/2019 Moderate mitral regurgitation 10/15/2015 04/26/2016 Obesity 10/15/2015 04/12/2017 documented as of this encounter (statuses as of 10/31/2022) [address]2016 History of Past illness Narrative* Problem Noted Date Diagnosed Date Resolved Date Cardiomyopathy, ischemic 10/15/201509/2019 Moderate mitral regurgitation 10/15/2015 04/26/2016 Obesity 10/15/2015 04/12/2017 documented as of this encounter (statuses as of 11/02/2022) [address]2016 History of Past illness Narrative* Problem Noted Date Diagnosed Date Resolved Date Cardiomyopathy, ischemic 10/15/201509/2019 Moderate mitral regurgitation 10/15/2015 04/26/2016 Obesity 10/15/2015 04/12/2017 documented as of this encounter (statuses as of 11/03/2022) [address]2016 History of Past illness Narrative* Problem Noted Date Diagnosed Date Resolved Date Cardiomyopathy, ischemic 10/15/201509/2019 Moderate mitral regurgitation 10/15/2015 04/26/2016 Obesity 10/15/2015 04/12/2017 documented as of this encounter (statuses as of 11/03/2022) [address]2016 History of Past illness Narrative* Problem Noted Date Diagnosed Date Resolved Date Cardiomyopathy, ischemic 10/15/201509/2019 Moderate mitral regurgitation 10/15/2015 04/26/2016 Obesity 10/15/2015 04/12/2017 documented as of this encounter (statuses as of 11/10/2022) [address]2016 History of Past illness Narrative* Problem Noted Date Diagnosed Date Resolved Date Cardiomyopathy, ischemic 10/15/201509/2019 Moderate mitral regurgitation 10/15/2015 04/26/2016 Obesity 10/15/2015 04/12/2017 documented as of this encounter (statuses as of 11/14/2022) [address]2016 History of Past illness Narrative* Problem Noted Date Diagnosed Date Resolved Date Cardiomyopathy, ischemic 10/15/201509/2019 Moderate mitral regurgitation 10/15/2015 04/26/2016 Obesity 10/15/2015 04/12/2017 documented as of this encounter (statuses as of 12/01/2022) [address]2016 History of Past illness Narrative* Problem Noted Date Diagnosed Date Resolved Date Cardiomyopathy, ischemic 10/15/201509/2019 Moderate mitral regurgitation 10/15/2015 04/26/2016 Obesity 10/15/2015 04/12/2017 documented as of this encounter (statuses as of 12/01/2022) [facility] History of Past illness Narrative* Problem Noted Date Diagnosed Date Resolved Date Cardiomyopathy, ischemic 10/15/201509/2019 Moderate mitral regurgitation 10/15/2015 04/26/2016 Obesity 10/15/2015 04/12/2017 documented as of this encounter (statuses as of 12/05/2022) [address]2016 History of Past illness Narrative* Problem Noted Date Diagnosed Date Resolved Date Cardiomyopathy, ischemic 10/15/201509/2019 Moderate mitral regurgitation 10/15/2015 04/26/2016 Obesity 10/15/2015 04/12/2017 documented as of this encounter (statuses as of 12/13/2022) [facility] History of Past illness Narrative* Problem Noted Date Diagnosed Date Resolved Date Cardiomyopathy, ischemic 10/15/201509/2019 Moderate mitral regurgitation 10/15/2015 04/26/2016 Obesity 10/15/2015 04/12/2017 documented as of this encounter (statuses as of 12/15/2022) [address]2016 History of Past illness Narrative* Problem Noted Date Diagnosed Date Resolved Date Cardiomyopathy, ischemic 10/15/201509/2019 Moderate mitral regurgitation 10/15/2015 04/26/2016 Obesity 10/15/2015 04/12/2017 documented as of this encounter (statuses as of 12/16/2022) [address]2016 History of Past illness Narrative* Problem Noted Date Diagnosed Date Resolved Date Cardiomyopathy, ischemic 10/15/201509/2019 Moderate mitral regurgitation 10/15/2015 04/26/2016 Obesity 10/15/2015 04/12/2017 documented as of this encounter (statuses as of 12/20/2022) [address]2016 History of Past illness Narrative* Problem Noted Date Diagnosed Date Resolved Date Cardiomyopathy, ischemic 10/15/201509/2019 Moderate mitral regurgitation 10/15/2015 04/26/2016 Obesity 10/15/2015 04/12/2017 documented as of this encounter (statuses as of 12/21/2022) [address]2016 History of Past illness Narrative* Problem Noted Date Diagnosed Date Resolved Date Cardiomyopathy, ischemic 10/15/201509/2019 Moderate mitral regurgitation 10/15/2015 04/26/2016 Obesity 10/15/2015 04/12/2017 documented as of this encounter (statuses as of 01/04/2023) [address]2016 History of Past illness Narrative* Problem Noted Date Diagnosed Date Resolved Date Cardiomyopathy, ischemic 10/15/201509/2019 Moderate mitral regurgitation 10/15/2015 04/26/2016 Obesity 10/15/2015 04/12/2017 documented as of this encounter (statuses as of 01/05/2023) [address]2016 History of Past illness Narrative* Problem Noted Date Diagnosed Date Resolved Date Cardiomyopathy, ischemic 10/15/201509/2019 Moderate mitral regurgitation 10/15/2015 04/26/2016 Obesity 10/15/2015 04/12/2017 documented as of this encounter (statuses as of 01/11/2023) [address]2016 History of Past illness Narrative* Problem Noted Date Diagnosed Date Resolved Date Cardiomyopathy, ischemic 10/15/201509/2019 Moderate mitral regurgitation 10/15/2015 04/26/2016 Obesity 10/15/2015 04/12/2017 documented as of this encounter (statuses as of 01/16/2023) [address]2016 History of Past illness Narrative* Problem Noted Date Diagnosed Date Resolved Date Cardiomyopathy, ischemic 10/15/201509/2019 Moderate mitral regurgitation 10/15/2015 04/26/2016 Obesity 10/15/2015 04/12/2017 documented as of this encounter (statuses as of 01/17/2023) [address]2016 History of Past illness Narrative* Problem Noted Date Diagnosed Date Resolved Date Cardiomyopathy, ischemic 10/15/201509/2019 Moderate mitral regurgitation 10/15/2015 04/26/2016 Obesity 10/15/2015 04/12/2017 documented as of this encounter (statuses as of 01/19/2023) [address]2016 History of Past illness Narrative* Problem Noted Date Diagnosed Date Resolved Date Cardiomyopathy, ischemic 10/15/201509/2019 Moderate mitral regurgitation 10/15/2015 04/26/2016 Obesity 10/15/2015 04/12/2017 documented as of this encounter (statuses as of 01/20/2023) [address]2016 History of Past illness Narrative* Problem Noted Date Diagnosed Date Resolved Date Cardiomyopathy, ischemic 10/15/201509/2019 Moderate mitral regurgitation 10/15/2015 04/26/2016 Obesity 10/15/2015 04/12/2017 documented as of this encounter (statuses as of 01/23/2023) [address]2016 History of Past illness Narrative* Problem Noted Date Diagnosed Date Resolved Date Cardiomyopathy, ischemic 10/15/201509/2019 Moderate mitral regurgitation 10/15/2015 04/26/2016 Obesity 10/15/2015 04/12/2017 documented as of this encounter (statuses as of 01/24/2023) [address]2016 History of Past illness Narrative* Problem Noted Date Diagnosed Date Resolved Date Cardiomyopathy, ischemic 10/15/201509/2019 Moderate mitral regurgitation 10/15/2015 04/26/2016 Obesity 10/15/2015 04/12/2017 documented as of this encounter (statuses as of 02/02/2023) [address]2016 History of Past illness Narrative* Problem Noted Date Diagnosed Date Resolved Date Cardiomyopathy, ischemic 10/15/201509/2019 Moderate mitral regurgitation 10/15/2015 04/26/2016 Obesity 10/15/2015 04/12/2017 documented as of this encounter (statuses as of 02/07/2023) [address]2016 History of Past illness Narrative* Problem Noted Date Diagnosed Date Resolved Date Cardiomyopathy, ischemic 10/15/201509/2019 Moderate mitral regurgitation 10/15/2015 04/26/2016 Obesity 10/15/2015 04/12/2017 documented as of this encounter (statuses as of 02/08/2023) [address]2016 History of Past illness Narrative* Problem Noted Date Diagnosed Date Resolved Date Cardiomyopathy, ischemic 10/15/201509/2019 Moderate mitral regurgitation 10/15/2015 04/26/2016 Obesity 10/15/2015 04/12/2017 documented as of this encounter (statuses as of 02/09/2023) [address]2016 History of Past illness Narrative* Problem Noted Date Diagnosed Date Resolved Date Cardiomyopathy, ischemic 10/15/201509/2019 Moderate mitral regurgitation 10/15/2015 04/26/2016 Obesity 10/15/2015 04/12/2017 documented as of this encounter (statuses as of 02/13/2023) [facility] History of Past illness Narrative* Problem Noted Date Diagnosed Date Resolved Date Cardiomyopathy, ischemic 10/15/201509/2019 Moderate mitral regurgitation 10/15/2015 04/26/2016 Obesity 10/15/2015 04/12/2017 documented as of this encounter (statuses as of 02/16/2023) [address]2016 History of Past illness Narrative* Problem Noted Date Diagnosed Date Resolved Date Cardiomyopathy, ischemic 10/15/201509/2019 Moderate mitral regurgitation 10/15/2015 04/26/2016 Obesity 10/15/2015 04/12/2017 documented as of this encounter (statuses as of 02/16/2023) [address]2016 History of Past illness Narrative* Problem Noted Date Diagnosed Date Resolved Date Cardiomyopathy, ischemic 10/15/201509/2019 Moderate mitral regurgitation 10/15/2015 04/26/2016 Obesity 10/15/2015 04/12/2017 documented as of this encounter (statuses as of 02/16/2023) [facility]F (paroxysmal atrial fibrillation) (HCC) [facility] Diagnosis Pure hypercholesterolemia- Primary Coronary artery disease involving [place] coronary artery of [place] heart without angina pectoris [facility] Diagnosis Vaginal atrophy- Primary Postmenopausal atrophic vaginitis [facility] Diagnosis Palpitations- Primary Postoperative atrial fibrillation (HCC) Cardiac complications Coronary artery disease involving [place] coronary artery of [place] heart without angina pectoris Pure hypercholesterolemia S/P CABG x 3 (L-LAD, S-CX, S-RCA) 07/2015 Postsurgical aortocoronary bypass status [facility] Diagnosis Primary osteoarthritis of both knees- Primary Primary localized osteoarthrosis, lower leg Chronic pain of both knees [facility] Diagnosis Right knee pain, unspecified chronicity- Primary [facility] Diagnosis Encounter for screening mammogram for breast cancer [facility] Diagnosis PAF (paroxysmal atrial fibrillation) (HCC) Atrial fibrillation [facility] Diagnosis Dermatochalasis of both upper eyelids- Primary Myogenic ptosis of bilateral eyelids [facility] Diagnosis Preoperative examination- Primary Preoperative examination, unspecified PAF (paroxysmal atrial fibrillation) (HCC) Atrial fibrillation Multinodular goiter Nontoxic multinodular goiter BMI 34.0-34.9,adult Body Mass Index 34.0-34.9, adult Dermatochalasis of both upper eyelids Myogenic ptosis of bilateral eyelids documented [facility]* Diagnosis Encounter for screening for cardiovascular disorders- Primary Screening for other and unspecified cardiovascular conditions Dermatochalasis of both upper eyelids Myogenic ptosis of bilateral eyelids [facility] Primary osteoarthritis of left knee- Primary Primary localized osteoarthrosis, lower leg Dermatochalasis of both upper eyelids Myogenic ptosis of bilateral eyelids Primary osteoarthritis of left knee Primary localized osteoarthrosis, lower leg [facility] Diagnosis Post-operative state- Primary Other postprocedural status Primary osteoarthritis of left knee Primary localized osteoarthrosis, lower leg [facility] Diagnosis Encounter for screening for cardiovascular disorders Screening for other and unspecified cardiovascular conditions Osteoarthritis of right knee, unspecified osteoarthritis type [facility] Diagnosis Coronary artery disease involving [place] coronary artery of [place] heart without angina pectoris Osteoarthritis of right knee, unspecified osteoarthritis type [facility] Diagnosis Primary osteoarthritis of right knee- Primary Primary localized osteoarthrosis, lower leg Preoperative testing Preoperative examination, unspecified Osteoarthritis of right knee, unspecified osteoarthritis type [facility] Diagnosis Primary osteoarthritis of right knee Primary localized osteoarthrosis, lower leg Preoperative testing Preoperative examination, unspecified Osteoarthritis of right knee, unspecified osteoarthritis type [facility]* Diagnosis Post-operative state- Primary Other postprocedural status Osteoarthritis of right knee, unspecified osteoarthritis type [facility] Diagnosis S/P total knee arthroplasty, right- Primary [facility]* Diagnosis Primary osteoarthritis of right knee- Primary Primary localized osteoarthrosis, lower leg [facility]* Diagnosis S/P total knee arthroplasty, right- Primary [facility]* Diagnosis S/P total knee arthroplasty, right- Primary [facility]* Diagnosis AK (actinic keratosis)- Primary Actinic keratosis [facility]* Diagnosis S/P total knee arthroplasty, right- Primary [facility]* Diagnosis S/P total knee arthroplasty, right- Primary [facility]* Diagnosis S/P total knee arthroplasty, right- Primary [facility]* Diagnosis Pain and swelling of right lower leg- Primary [facility]* Diagnosis Hyperlipidemia, unspecified hyperlipidemia type- Primary Acute confusion Delirium due to conditions classified elsewhere Elevated lipoprotein(a) Other disorders of lipoid metabolism Elevated blood lead level Other abnormal blood chemistry Transient cerebral ischemia, unspecified type [facility]* Diagnosis Encounter for screening mammogram for breast cancer [facility]* Diagnosis Acute confusion Delirium due to conditions classified elsewhere [facility]* Diagnosis Meningioma (HCC) [D32.9]- Primary Benign neoplasm of cerebral meninges [facility]* Diagnosis Meningioma (HCC)- Primary Benign neoplasm of cerebral meninges Benign neoplasm of meninges (HCC) Benign neoplasm of cerebral meninges Abnormal CT scan of head Nonspecific (abnormal) findings on radiological and other examination of skull and head Acute confusion Delirium due to conditions classified elsewhere [facility] Meningioma (HCC) Benign neoplasm of cerebral meninges Abnormal CT scan of head Nonspecific (abnormal) findings on radiological and other examination of skull and head Acute confusion Delirium due to conditions classified elsewhere [facility] Diagnosis Meningioma (HCC) Benign neoplasm of cerebral meninges Abnormal CT scan of head Nonspecific (abnormal) findings on radiological and other examination of skull and head Acute confusion Delirium due to conditions classified elsewhere [facility]* Diagnosis Screening for lead exposure- Primary Screening for chemical poisoning and other contamination [facility]* Diagnosis Recurrent UTI (urinary tract infection)- Primary Urinary tract infection, site not specified documented in this encounter [facility] note* Diagnosis PAF (paroxysmal atrial fibrillation) ([facility]) Atrial fibrillation [facility]* Diagnosis Right knee pain, unspecified chronicity- Primary [facility]* Diagnosis S/P total knee arthroplasty, right- Primary Pes anserinus bursitis of right knee Pes anserinus tendinitis or bursitis Instability of prosthetic knee, initial encounter ([facility]) ([facility]) [facility]* Diagnosis Chronic pain of right knee- Primary S/P total knee arthroplasty, right Hamstring tightness Unspecified disorder of muscle, ligament, and fascia Somatic dysfunction of thoracic region Nonallopathic lesion of thoracic region, not elsewhere classified Somatic dysfunction of lumbar region Nonallopathic lesion of lumbar region, not elsewhere classified Somatic dysfunction of sacral region Nonallopathic lesion of sacral region, not elsewhere classified Somatic dysfunction of pelvic region Nonallopathic lesion of pelvic region, not elsewhere classified Somatic dysfunction of lower extremity Nonallopathic lesion of lower extremities, not elsewhere classified [facility]* Diagnosis S/P total knee arthroplasty, right- Primary Chronic pain of both knees Primary osteoarthritis of both knees Primary localized osteoarthrosis, lower leg Primary osteoarthritis of left knee Primary localized osteoarthrosis, lower leg Primary osteoarthritis of right knee Primary localized osteoarthrosis, lower leg [facility]* Diagnosis S/P total knee arthroplasty, right- Primary Instability of prosthetic knee, initial encounter ([facility]) ([facility]) documented in this encounter [facility] note* Diagnosis Chronic pain of right knee- Primary S/P total knee arthroplasty, right Sacral back pain Disorders of sacrum Somatic dysfunction of thoracic region Nonallopathic lesion of thoracic region, not elsewhere classified Somatic dysfunction of lumbar region Nonallopathic lesion of lumbar region, not elsewhere classified Somatic dysfunction of sacral region Nonallopathic lesion of sacral region, not elsewhere classified Somatic dysfunction of lower extremity Nonallopathic lesion of lower extremities, not elsewhere classified Somatic dysfunction of pelvic region Nonallopathic lesion of pelvic region, not elsewhere classified [facility]* Diagnosis Aftercare following right knee joint replacement surgery [facility]* Diagnosis Aftercare following right knee joint replacement surgery- Primary documented [facility]* Diagnosis Preoperative examination- Primary Preoperative examination, unspecified PAF (paroxysmal atrial fibrillation) (HCC) Atrial fibrillation Multinodular goiter Nontoxic multinodular goiter BMI 34.0-34.9,adult Body Mass Index 34.0-34.9, adult Pre-operative examination- Primary Preoperative examination, unspecified Coronary artery disease involving [place] coronary artery of [place] heart without angina pectoris Hyperlipidemia, unspecified hyperlipidemia type Multinodular goiter Nontoxic multinodular goiter PAF (paroxysmal atrial fibrillation) (HCC) Atrial fibrillation Former smoker Personal history of tobacco use, presenting hazards to health BMI 34.0-34.9,adult Body Mass Index 34.0-34.9, adult Aftercare following right knee joint replacement surgery- Primary documented in this encounter [facility] note* Diagnosis Preoperative examination- Primary Preoperative examination, unspecified PAF (paroxysmal atrial fibrillation) (HCC) Atrial fibrillation Multinodular goiter Nontoxic multinodular goiter BMI 34.0-34.9,adult Body Mass Index 34.0-34.9, adult Pre-operative examination- Primary Preoperative examination, unspecified Coronary artery disease involving [place] coronary artery of [place] heart without angina pectoris Hyperlipidemia, unspecified hyperlipidemia type Multinodular goiter Nontoxic multinodular goiter PAF (paroxysmal atrial fibrillation) (HCC) Atrial fibrillation Former smoker Personal history of tobacco use, presenting hazards to health BMI 34.0-34.9,adult Body Mass Index 34.0-34.9, adult Right knee pain, unspecified chronicity documented in this encounter [facility] note* Diagnosis Preoperative examination- Primary Preoperative examination, unspecified PAF (paroxysmal atrial fibrillation) (HCC) Atrial fibrillation Multinodular goiter Nontoxic multinodular goiter BMI 34.0-34.9,adult Body Mass Index 34.0-34.9, adult Pre-operative examination- Primary Preoperative examination, unspecified Coronary artery disease involving [place] coronary artery of [place] heart without angina pectoris Hyperlipidemia, unspecified hyperlipidemia type Multinodular goiter Nontoxic multinodular goiter PAF (paroxysmal atrial fibrillation) (HCC) Atrial fibrillation Former smoker Personal history of tobacco use, presenting hazards to health BMI 34.0-34.9,adult Body Mass Index 34.0-34.9, adult Chronic pain of right knee- Primary S/P total knee arthroplasty, right Chronic pain of left knee Pain in joint, lower leg Somatic dysfunction of lower extremities Nonallopathic lesion of lower extremities, not elsewhere classified Somatic dysfunction of thoracic region Nonallopathic lesion of thoracic region, not elsewhere classified documented in this encounter [facility] note* Diagnosis Preoperative examination- Primary Preoperative examination, unspecified PAF (paroxysmal atrial fibrillation) (HCC) Atrial fibrillation Multinodular goiter Nontoxic multinodular goiter BMI 34.0-34.9,adult Body Mass Index 34.0-34.9, adult Pre-operative examination- Primary Preoperative examination, unspecified Coronary artery disease involving [place] coronary artery of [place] heart without angina pectoris Hyperlipidemia, unspecified hyperlipidemia type Multinodular goiter Nontoxic multinodular goiter PAF (paroxysmal atrial fibrillation) (HCC) Atrial fibrillation Former smoker Personal history of tobacco use, presenting hazards to health BMI 34.0-34.9,adult Body Mass Index 34.0-34.9, adult Right knee pain, unspecified chronicity documented in this encounter [facility] note* Diagnosis Preoperative examination- Primary Preoperative examination, unspecified PAF (paroxysmal atrial fibrillation) (HCC) Atrial fibrillation Multinodular goiter Nontoxic multinodular goiter BMI 34.0-34.9,adult Body Mass Index 34.0-34.9, adult Pain Generalized pain Pre-operative examination- Primary Preoperative examination, unspecified Coronary artery disease involving [place] coronary artery of [place] heart without angina pectoris Hyperlipidemia, unspecified hyperlipidemia type Multinodular goiter Nontoxic multinodular goiter PAF (paroxysmal atrial fibrillation) (HCC) Atrial fibrillation Former smoker Personal history of tobacco use, presenting hazards to health BMI 34.0-34.9,adult Body Mass Index 34.0-34.9, adult [facility]* Diagnosis Preoperative examination- Primary Preoperative examination, unspecified PAF (paroxysmal atrial fibrillation) (HCC) Atrial fibrillation Multinodular goiter Nontoxic multinodular goiter BMI 34.0-34.9,adult Body Mass Index 34.0-34.9, adult Pre-operative examination- Primary Preoperative examination, unspecified Coronary artery disease involving [place] coronary artery of [place] heart without angina pectoris Hyperlipidemia, unspecified hyperlipidemia type Multinodular goiter Nontoxic multinodular goiter PAF (paroxysmal atrial fibrillation) (HCC) Atrial fibrillation Former smoker Personal history of tobacco use, presenting hazards to health BMI 34.0-34.9,adult Body Mass Index 34.0-34.9, adult Aftercare following right knee joint replacement surgery- Primary documented in this encounter [facility] note* Diagnosis Preoperative examination- Primary Preoperative examination, unspecified PAF (paroxysmal atrial fibrillation) (HCC) Atrial fibrillation Multinodular goiter Nontoxic multinodular goiter BMI 34.0-34.9,adult Body Mass Index 34.0-34.9, adult Pre-operative examination- Primary Preoperative examination, unspecified Coronary artery disease involving [place] coronary artery of [place] heart without angina pectoris Hyperlipidemia, unspecified hyperlipidemia type Multinodular goiter Nontoxic multinodular goiter PAF (paroxysmal atrial fibrillation) (HCC) Atrial fibrillation Former smoker Personal history of tobacco use, presenting hazards to health BMI 34.0-34.9,adult Body Mass Index 34.0-34.9, adult Medicare annual wellness visit, subsequent- Primary Routine general medical examination at a health care facility Dysuria Hyperlipidemia, unspecified hyperlipidemia type Elevated lipoprotein(a) Other disorders of lipoid metabolism Myalgia Mylagia and myositis, unspecified Vitamin D deficiency Unspecified vitamin D deficiency Hyperglycemia Other abnormal glucose Actinic keratosis documented in this encounter [facility] note* Diagnosis Preoperative examination- Primary Preoperative examination, unspecified PAF (paroxysmal atrial fibrillation) (HCC) Atrial fibrillation Multinodular goiter Nontoxic multinodular goiter BMI 34.0-34.9,adult Body Mass Index 34.0-34.9, adult Pre-operative examination- Primary Preoperative examination, unspecified Coronary artery disease involving [place] coronary artery of [place] heart without angina pectoris Hyperlipidemia, unspecified hyperlipidemia type Multinodular goiter Nontoxic multinodular goiter PAF (paroxysmal atrial fibrillation) (HCC) Atrial fibrillation Former smoker Personal history of tobacco use, presenting hazards to health BMI 34.0-34.9,adult Body Mass Index 34.0-34.9, adult Aftercare following right knee joint replacement surgery- Primary documented in this encounter [facility] note* Diagnosis Preoperative examination- Primary Preoperative examination, unspecified PAF (paroxysmal atrial fibrillation) (HCC) Atrial fibrillation Multinodular goiter Nontoxic multinodular goiter BMI 34.0-34.9,adult Body Mass Index 34.0-34.9, adult Pre-operative examination- Primary Preoperative examination, unspecified Coronary artery disease involving [place] coronary artery of [place] heart without angina pectoris Hyperlipidemia, unspecified hyperlipidemia type Multinodular goiter Nontoxic multinodular goiter PAF (paroxysmal atrial fibrillation) (HCC) Atrial fibrillation Former smoker Personal history of tobacco use, presenting hazards to health BMI 34.0-34.9,adult Body Mass Index 34.0-34.9, adult Aftercare following right knee joint replacement surgery- Primary Chronic pain of right knee documented in this encounter [facility] note* Diagnosis Preoperative examination- Primary Preoperative examination, unspecified PAF (paroxysmal atrial fibrillation) (HCC) Atrial fibrillation Multinodular goiter Nontoxic multinodular goiter BMI 34.0-34.9,adult Body Mass Index 34.0-34.9, adult Pre-operative examination- Primary Preoperative examination, unspecified Coronary artery disease involving [place] coronary artery of [place] heart without angina pectoris Hyperlipidemia, unspecified hyperlipidemia type Multinodular goiter Nontoxic multinodular goiter PAF (paroxysmal atrial fibrillation) (HCC) Atrial fibrillation Former smoker Personal history of tobacco use, presenting hazards to health BMI 34.0-34.9,adult Body Mass Index 34.0-34.9, adult Chronic pain of right knee- Primary Aftercare following right knee joint replacement surgery documented in this encounter [facility] note* Diagnosis Preoperative examination- Primary Preoperative examination, unspecified PAF (paroxysmal atrial fibrillation) (HCC) Atrial fibrillation Multinodular goiter Nontoxic multinodular goiter BMI 34.0-34.9,adult Body Mass Index 34.0-34.9, adult Pre-operative examination- Primary Preoperative examination, unspecified Coronary artery disease involving [place] coronary artery of [place] heart without angina pectoris Hyperlipidemia, unspecified hyperlipidemia type Multinodular goiter Nontoxic multinodular goiter PAF (paroxysmal atrial fibrillation) (HCC) Atrial fibrillation Former smoker Personal history of tobacco use, presenting hazards to health BMI 34.0-34.9,adult Body Mass Index 34.0-34.9, adult Chronic pain of left knee- Primary Pain in joint, lower leg Chronic left-sided low back pain without sciatica Chronic pain of right knee S/P total knee arthroplasty, right Somatic dysfunction of lumbar region Nonallopathic lesion of lumbar region, not elsewhere classified Somatic dysfunction of sacral region Nonallopathic lesion of sacral region, not elsewhere classified Somatic dysfunction of lower extremities Nonallopathic lesion of lower extremities, not elsewhere classified Somatic dysfunction of abdominal region [facility]* Diagnosis Preoperative examination- Primary Preoperative examination, unspecified PAF (paroxysmal atrial fibrillation) (HCC) Atrial fibrillation Multinodular goiter Nontoxic multinodular goiter BMI 34.0-34.9,adult Body Mass Index 34.0-34.9, adult Pre-operative examination- Primary Preoperative examination, unspecified Coronary artery disease involving [place] coronary artery of [place] heart without angina pectoris Hyperlipidemia, unspecified hyperlipidemia type Multinodular goiter Nontoxic multinodular goiter PAF (paroxysmal atrial fibrillation) (HCC) Atrial fibrillation Former smoker Personal history of tobacco use, presenting hazards to health BMI 34.0-34.9,adult Body Mass Index 34.0-34.9, adult Pain- Primary Generalized pain documented in this encounter [facility] note* Diagnosis Preoperative examination- Primary Preoperative examination, unspecified PAF (paroxysmal atrial fibrillation) (HCC) Atrial fibrillation Multinodular goiter Nontoxic multinodular goiter BMI 34.0-34.9,adult Body Mass Index 34.0-34.9, adult Pre-operative examination- Primary Preoperative examination, unspecified Coronary artery disease involving [place] coronary artery of [place] heart without angina pectoris Hyperlipidemia, unspecified hyperlipidemia type Multinodular goiter Nontoxic multinodular goiter PAF (paroxysmal atrial fibrillation) (HCC) Atrial fibrillation Former smoker Personal history of tobacco use, presenting hazards to health BMI 34.0-34.9,adult Body Mass Index 34.0-34.9, adult Primary osteoarthritis of left knee- Primary Primary localized osteoarthrosis, lower leg Anemia, unspecified type Pain Generalized pain Primary osteoarthritis of left knee Primary localized osteoarthrosis, lower leg documented in this encounter [facility] note* Diagnosis Preoperative examination- Primary Preoperative examination, unspecified PAF (paroxysmal atrial fibrillation) (HCC) Atrial fibrillation Multinodular goiter Nontoxic multinodular goiter BMI 34.0-34.9,adult Body Mass Index 34.0-34.9, adult Pre-operative examination- Primary Preoperative examination, unspecified Coronary artery disease involving [place] coronary artery of [place] heart without angina pectoris Hyperlipidemia, unspecified hyperlipidemia type Multinodular goiter Nontoxic multinodular goiter PAF (paroxysmal atrial fibrillation) (HCC) Atrial fibrillation Former smoker Personal history of tobacco use, presenting hazards to health BMI 34.0-34.9,adult Body Mass Index 34.0-34.9, adult Pain Generalized pain Primary osteoarthritis of left knee Primary localized osteoarthrosis, lower leg documented in this encounter [facility] note* Diagnosis Preoperative examination- Primary Preoperative examination, unspecified PAF (paroxysmal atrial fibrillation) (HCC) Atrial fibrillation Multinodular goiter Nontoxic multinodular goiter BMI 34.0-34.9,adult Body Mass Index 34.0-34.9, adult Pre-operative examination- Primary Preoperative examination, unspecified Coronary artery disease involving [place] coronary artery of [place] heart without angina pectoris Hyperlipidemia, unspecified hyperlipidemia type Multinodular goiter Nontoxic multinodular goiter PAF (paroxysmal atrial fibrillation) (HCC) Atrial fibrillation Former smoker Personal history of tobacco use, presenting hazards to health BMI 34.0-34.9,adult Body Mass Index 34.0-34.9, adult Chronic pain of left knee- Primary Pain in joint, lower leg Chronic left-sided low back pain without sciatica Somatic dysfunction of spine, thoracic Nonallopathic lesion of thoracic region, not elsewhere classified Somatic dysfunction of upper extremity Somatic dysfunction of spine, lumbar Nonallopathic lesion of lumbar region, not elsewhere classified Somatic dysfunction of sacral spine Somatic dysfunction of lower extremity Nonallopathic lesion of lower extremities, not elsewhere classified Somatic dysfunction of abdominal region Primary osteoarthritis of left knee Primary localized osteoarthrosis, lower leg documented in this encounter [facility] note* Diagnosis Preoperative examination- Primary Preoperative examination, unspecified PAF (paroxysmal atrial fibrillation) (HCC) Atrial fibrillation Multinodular goiter Nontoxic multinodular goiter BMI 34.0-34.9,adult Body Mass Index 34.0-34.9, adult Pre-operative examination- Primary Preoperative examination, unspecified Coronary artery disease involving [place] coronary artery of [place] heart without angina pectoris Hyperlipidemia, unspecified hyperlipidemia type Multinodular goiter Nontoxic multinodular goiter PAF (paroxysmal atrial fibrillation) (HCC) Atrial fibrillation Former smoker Personal history of tobacco use, presenting hazards to health BMI 34.0-34.9,adult Body Mass Index 34.0-34.9, adult Chronic pain of right knee- Primary Aftercare following right knee joint replacement surgery Chronic bilateral low back pain, unspecified whether sciatica present Primary osteoarthritis of left knee Primary localized osteoarthrosis, lower leg documented in this encounter [facility] note* Diagnosis Preoperative examination- Primary Preoperative examination, unspecified PAF (paroxysmal atrial fibrillation) (HCC) Atrial fibrillation Multinodular goiter Nontoxic multinodular goiter BMI 34.0-34.9,adult Body Mass Index 34.0-34.9, adult Pre-operative examination- Primary Preoperative examination, unspecified Coronary artery disease involving [place] coronary artery of [place] heart without angina pectoris Hyperlipidemia, unspecified hyperlipidemia type Multinodular goiter Nontoxic multinodular goiter PAF (paroxysmal atrial fibrillation) (HCC) Atrial fibrillation Former smoker Personal history of tobacco use, presenting hazards to health BMI 34.0-34.9,adult Body Mass Index 34.0-34.9, adult Chronic bilateral low back pain without sciatica- Primary Aftercare following right knee joint replacement surgery Chronic pain of right knee Primary osteoarthritis of left knee Primary localized osteoarthrosis, lower leg documented in this encounter [facility] note* Diagnosis Preoperative examination- Primary Preoperative examination, unspecified PAF (paroxysmal atrial fibrillation) (HCC) Atrial fibrillation Multinodular goiter Nontoxic multinodular goiter BMI 34.0-34.9,adult Body Mass Index 34.0-34.9, adult Pre-operative examination- Primary Preoperative examination, unspecified Coronary artery disease involving [place] coronary artery of [place] heart without angina pectoris Hyperlipidemia, unspecified hyperlipidemia type Multinodular goiter Nontoxic multinodular goiter PAF (paroxysmal atrial fibrillation) (HCC) Atrial fibrillation Former smoker Personal history of tobacco use, presenting hazards to health BMI 34.0-34.9,adult Body Mass Index 34.0-34.9, adult S/P CABG x 3 (L-LAD, S-CX, S-RCA) 07/2015- Primary Postsurgical aortocoronary bypass status Hyperlipidemia, unspecified hyperlipidemia type Primary osteoarthritis of left knee Primary localized osteoarthrosis, lower leg documented in this encounter [facility] note* Diagnosis Preoperative examination- Primary Preoperative examination, unspecified PAF (paroxysmal atrial fibrillation) (HCC) Atrial fibrillation Multinodular goiter Nontoxic multinodular goiter BMI 34.0-34.9,adult Body Mass Index 34.0-34.9, adult Pre-operative examination- Primary Preoperative examination, unspecified Coronary artery disease involving [place] coronary artery of [place] heart without angina pectoris Hyperlipidemia, unspecified hyperlipidemia type Multinodular goiter Nontoxic multinodular goiter PAF (paroxysmal atrial fibrillation) (HCC) Atrial fibrillation Former smoker Personal history of tobacco use, presenting hazards to health BMI 34.0-34.9,adult Body Mass Index 34.0-34.9, adult Chronic pain of left knee- Primary Pain in joint, lower leg Chronic left-sided low back pain without sciatica Somatic dysfunction of head region Somatic dysfunction of spine, lumbar Nonallopathic lesion of lumbar region, not elsewhere classified Somatic dysfunction of pelvis region Nonallopathic lesion of pelvic region, not elsewhere classified Somatic dysfunction of lower extremity Nonallopathic lesion of lower extremities, not elsewhere classified Somatic dysfunction of sacral spine Somatic dysfunction of abdominal region Somatic dysfunction of rib Cervical (neck) region somatic dysfunction Nonallopathic lesion of cervical region, not elsewhere classified Primary osteoarthritis of left knee Primary localized osteoarthrosis, lower leg documented in this encounter [facility] note* Diagnosis Preoperative examination- Primary Preoperative examination, unspecified PAF (paroxysmal atrial fibrillation) (HCC) Atrial fibrillation Multinodular goiter Nontoxic multinodular goiter BMI 34.0-34.9,adult Body Mass Index 34.0-34.9, adult Pre-operative examination- Primary Preoperative examination, unspecified Coronary artery disease involving [place] coronary artery of [place] heart without angina pectoris Hyperlipidemia, unspecified hyperlipidemia type Multinodular goiter Nontoxic multinodular goiter PAF (paroxysmal atrial fibrillation) (HCC) Atrial fibrillation Former smoker Personal history of tobacco use, presenting hazards to health BMI 34.0-34.9,adult Body Mass Index 34.0-34.9, adult Pre-operative examination- Primary Preoperative examination, unspecified Coronary artery disease involving [place] coronary artery of [place] heart without angina pectoris Hyperlipidemia, unspecified hyperlipidemia type PAF (paroxysmal atrial fibrillation) (HCC) Atrial fibrillation Former smoker Personal history of tobacco use, presenting hazards to health Multinodular goiter Nontoxic multinodular goiter S/P total knee arthroplasty, right Chronic bilateral low back pain without sciatica BMI 37.0-37.9, adult Body Mass Index 37.0-37.9, adult 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 note* Diagnosis Preoperative examination- Primary Preoperative examination, unspecified PAF (paroxysmal atrial fibrillation) (HCC) Atrial fibrillation Multinodular goiter Nontoxic multinodular goiter BMI 34.0-34.9,adult Body Mass Index 34.0-34.9, adult Pre-operative examination- Primary Preoperative examination, unspecified Coronary artery disease involving [place] coronary artery of [place] heart without angina pectoris Hyperlipidemia, unspecified hyperlipidemia type Multinodular goiter Nontoxic multinodular goiter PAF (paroxysmal atrial fibrillation) (HCC) Atrial fibrillation Former smoker Personal history of tobacco use, presenting hazards to health BMI 34.0-34.9,adult Body Mass Index 34.0-34.9, adult Pre-operative examination- Primary Preoperative examination, unspecified Coronary artery disease involving [place] coronary artery of [place] heart without angina pectoris Hyperlipidemia, unspecified hyperlipidemia type PAF (paroxysmal atrial fibrillation) (HCC) Atrial fibrillation Former smoker Personal history of tobacco use, presenting hazards to health Multinodular goiter Nontoxic multinodular goiter S/P total knee arthroplasty, right Chronic bilateral low back pain without sciatica BMI 37.0-37.9, adult Body Mass Index 37.0-37.9, adult Primary osteoarthritis of left knee- Primary Primary localized osteoarthrosis, lower leg Primary osteoarthritis of left knee Primary localized osteoarthrosis, lower leg documented in this encounter [facility] note* Diagnosis Preoperative examination- Primary Preoperative examination, unspecified PAF (paroxysmal atrial fibrillation) (HCC) Atrial fibrillation Multinodular goiter Nontoxic multinodular goiter BMI 34.0-34.9,adult Body Mass Index 34.0-34.9, adult Pre-operative examination- Primary Preoperative examination, unspecified Coronary artery disease involving [place] coronary artery of [place] heart without angina pectoris Hyperlipidemia, unspecified hyperlipidemia type Multinodular goiter Nontoxic multinodular goiter PAF (paroxysmal atrial fibrillation) (HCC) Atrial fibrillation Former smoker Personal history of tobacco use, presenting hazards to health BMI 34.0-34.9,adult Body Mass Index 34.0-34.9, adult Pre-operative examination- Primary Preoperative examination, unspecified Coronary artery disease involving [place] coronary artery of [place] heart without angina pectoris Hyperlipidemia, unspecified hyperlipidemia type PAF (paroxysmal atrial fibrillation) (HCC) Atrial fibrillation Former smoker Personal history of tobacco use, presenting hazards to health Multinodular goiter Nontoxic multinodular goiter S/P total knee arthroplasty, right Chronic bilateral low back pain without sciatica BMI 37.0-37.9, adult Body Mass Index 37.0-37.9, adult Benign neoplasm of meninges (HCC)- Primary Benign neoplasm of cerebral meninges Primary osteoarthritis of left knee Primary localized osteoarthrosis, lower leg [facility]* Diagnosis Preoperative examination- Primary Preoperative examination, unspecified PAF (paroxysmal atrial fibrillation) (HCC) Atrial fibrillation Multinodular goiter Nontoxic multinodular goiter BMI 34.0-34.9,adult Body Mass Index 34.0-34.9, adult Pre-operative examination- Primary Preoperative examination, unspecified Coronary artery disease involving [place] coronary artery of [place] heart without angina pectoris Hyperlipidemia, unspecified hyperlipidemia type Multinodular goiter Nontoxic multinodular goiter PAF (paroxysmal atrial fibrillation) (HCC) Atrial fibrillation Former smoker Personal history of tobacco use, presenting hazards to health BMI 34.0-34.9,adult Body Mass Index 34.0-34.9, adult Pre-operative examination- Primary Preoperative examination, unspecified Coronary artery disease involving [place] coronary artery of [place] heart without angina pectoris Hyperlipidemia, unspecified hyperlipidemia type PAF (paroxysmal atrial fibrillation) (HCC) Atrial fibrillation Former smoker Personal history of tobacco use, presenting hazards to health Multinodular goiter Nontoxic multinodular goiter S/P total knee arthroplasty, right Chronic bilateral low back pain without sciatica BMI 37.0-37.9, adult Body Mass Index 37.0-37.9, adult Coronary artery disease involving [place] coronary artery of [place] heart without angina pectoris- Primary PAF (paroxysmal atrial fibrillation) (HCC) Atrial fibrillation Primary osteoarthritis of left knee Primary localized osteoarthrosis, lower leg documented in this encounter [facility] note* Diagnosis Preoperative examination- Primary Preoperative examination, unspecified PAF (paroxysmal atrial fibrillation) (HCC) Atrial fibrillation Multinodular goiter Nontoxic multinodular goiter BMI 34.0-34.9,adult Body Mass Index 34.0-34.9, adult Pre-operative examination- Primary Preoperative examination, unspecified Coronary artery disease involving [place] coronary artery of [place] heart without angina pectoris Hyperlipidemia, unspecified hyperlipidemia type Multinodular goiter Nontoxic multinodular goiter PAF (paroxysmal atrial fibrillation) (HCC) Atrial fibrillation Former smoker Personal history of tobacco use, presenting hazards to health BMI 34.0-34.9,adult Body Mass Index 34.0-34.9, adult Pre-operative examination- Primary Preoperative examination, unspecified Coronary artery disease involving [place] coronary artery of [place] heart without angina pectoris Hyperlipidemia, unspecified hyperlipidemia type PAF (paroxysmal atrial fibrillation) (HCC) Atrial fibrillation Former smoker Personal history of tobacco use, presenting hazards to health Multinodular goiter Nontoxic multinodular goiter S/P total knee arthroplasty, right Chronic bilateral low back pain without sciatica BMI 37.0-37.9, adult Body Mass Index 37.0-37.9, adult Primary osteoarthritis of left knee Primary localized osteoarthrosis, lower leg Primary osteoarthritis of left knee Primary localized osteoarthrosis, lower leg documented in this encounter [facility] note* Diagnosis Preoperative examination- Primary Preoperative examination, unspecified PAF (paroxysmal atrial fibrillation) (HCC) Atrial fibrillation Multinodular goiter Nontoxic multinodular goiter BMI 34.0-34.9,adult Body Mass Index 34.0-34.9, adult Pre-operative examination- Primary Preoperative examination, unspecified Coronary artery disease involving [place] coronary artery of [place] heart without angina pectoris Hyperlipidemia, unspecified hyperlipidemia type Multinodular goiter Nontoxic multinodular goiter PAF (paroxysmal atrial fibrillation) (HCC) Atrial fibrillation Former smoker Personal history of tobacco use, presenting hazards to health BMI 34.0-34.9,adult Body Mass Index 34.0-34.9, adult Pre-operative examination- Primary Preoperative examination, unspecified Coronary artery disease involving [place] coronary artery of [place] heart without angina pectoris Hyperlipidemia, unspecified hyperlipidemia type PAF (paroxysmal atrial fibrillation) (HCC) Atrial fibrillation Former smoker Personal history of tobacco use, presenting hazards to health Multinodular goiter Nontoxic multinodular goiter S/P total knee arthroplasty, right Chronic bilateral low back pain without sciatica BMI 37.0-37.9, adult Body Mass Index 37.0-37.9, adult Urticaria- Primary Urticaria, unspecified Spider bite wound, accidental or unintentional, initial encounter Essential (primary) hypertension Unspecified essential hypertension Primary osteoarthritis of left knee Primary localized osteoarthrosis, lower leg [facility]* Diagnosis Preoperative examination- Primary Preoperative examination, unspecified PAF (paroxysmal atrial fibrillation) (HCC) Atrial fibrillation Multinodular goiter Nontoxic multinodular goiter BMI 34.0-34.9,adult Body Mass Index 34.0-34.9, adult Pre-operative examination- Primary Preoperative examination, unspecified Coronary artery disease involving [place] coronary artery of [place] heart without angina pectoris Hyperlipidemia, unspecified hyperlipidemia type Multinodular goiter Nontoxic multinodular goiter PAF (paroxysmal atrial fibrillation) (HCC) Atrial fibrillation Former smoker Personal history of tobacco use, presenting hazards to health BMI 34.0-34.9,adult Body Mass Index 34.0-34.9, adult Pre-operative examination- Primary Preoperative examination, unspecified Coronary artery disease involving [place] coronary artery of [place] heart without angina pectoris Hyperlipidemia, unspecified hyperlipidemia type PAF (paroxysmal atrial fibrillation) (HCC) Atrial fibrillation Former smoker Personal history of tobacco use, presenting hazards to health Multinodular goiter Nontoxic multinodular goiter S/P total knee arthroplasty, right Chronic bilateral low back pain without sciatica BMI 37.0-37.9, adult Body Mass Index 37.0-37.9, adult Pre-op evaluation- Primary Preoperative examination, unspecified Hyperlipidemia, unspecified hyperlipidemia type Coronary artery disease involving [place] coronary artery of [place] heart without angina pectoris PAF (paroxysmal atrial fibrillation) (HCC) Atrial fibrillation Multinodular goiter Nontoxic multinodular goiter BMI 37.0-37.9, adult Body Mass Index 37.0-37.9, adult Spider bite wound, undetermined intent, subsequent encounter Primary osteoarthritis of left knee Primary localized osteoarthrosis, lower leg Primary osteoarthritis of left knee Primary localized osteoarthrosis, lower leg * Assessment & Plan Note - Slime Ku APRN.CNP - 08/08/2024 4:16 PM EDT Associated Problem(s): Spider bite Assessment: Patient bite by spider about two weeks ago. Tiny scab on left wrist today. Still some swelling but no itching. Going to office 08/11 to get spider bite viewed by surgical team. * Assessment & Plan Note - Slime Ku APRN.CNP - 08/08/2024 4:14 PM EDT Associated Problem(s): BMI 37.0-37.9, adult Assessment: Body mass index is 37.28 kg/m . * Assessment & Plan Note - Slime Ku APRN.CNP - 08/08/2024 4:14 PM EDT Associated Problem(s): Multinodular goiter Assessment: FNA completed, no further work up needed, denies compressive symptoms * Assessment & Plan Note - Slime Ku APRN.CNP - 08/08/2024 3:50 PM EDT Associated Problem(s): PAF (paroxysmal atrial fibrillation) (HCC) Assessment: post-op CABG, compliant on BB. Denies any heart palpitations, edema, chest pain, shortness of breath, syncope, activity intolerance, or dizziness. HR in office 83. Follows Cardiology. [id number] CHADS2-Vasc Score Breakdown 5 Total Score 1 Female 2 Age >= 75 years old 1 History of hypertension 1 History of vascular disease Ejection Fraction - Result: 61 % Date: 03/28/2022 Time: 15:29:39 * Assessment & Plan Note - Slime Ku APRN.CNP - 08/08/2024 3:47 PM EDT Associated Problem(s): CAD (coronary artery disease) Assessment: S/p NSTEMI in 2016. Reports compliance to medication. Denies any heart palpitations, edema, chest pain, shortness of breath, syncope, activity intolerance, or dizziness. S/p CABG in 2016.Normal stress 11/2022 and echo 03/2022. Follows Cardiology. Office Visit with Amber Nash APRN.CNP (06/06/2024) She is optimized from a cardiac standpoint. She would be at low to moderate risk primarily for her age for her knee surgery. * Assessment & Plan Note - Slime Ku APRN.CNP - 08/08/2024 3:46 PM EDT Associated Problem(s): Hyperlipidemia Assessment: Compliant on supplements (coQ10). [facility] Preoperative examination- Primary Preoperative examination, unspecified PAF (paroxysmal atrial fibrillation) (HCC) Atrial fibrillation Multinodular goiter Nontoxic multinodular goiter BMI 34.0-34.9,adult Body Mass Index 34.0-34.9, adult Pre-operative examination- Primary Preoperative examination, unspecified Coronary artery disease involving [place] coronary artery of [place] heart without angina pectoris Hyperlipidemia, unspecified hyperlipidemia type Multinodular goiter Nontoxic multinodular goiter PAF (paroxysmal atrial fibrillation) (HCC) Atrial fibrillation Former smoker Personal history of tobacco use, presenting hazards to health BMI 34.0-34.9,adult Body Mass Index 34.0-34.9, adult Pre-operative examination- Primary Preoperative examination, unspecified Coronary artery disease involving [place] coronary artery of [place] heart without angina pectoris Hyperlipidemia, unspecified hyperlipidemia type PAF (paroxysmal atrial fibrillation) (HCC) Atrial fibrillation Former smoker Personal history of tobacco use, presenting hazards to health Multinodular goiter Nontoxic multinodular goiter S/P total knee arthroplasty, right Chronic bilateral low back pain without sciatica BMI 37.0-37.9, adult Body Mass Index 37.0-37.9, adult Primary osteoarthritis of left knee- Primary Primary localized osteoarthrosis, lower leg Anemia, unspecified type Primary osteoarthritis of left knee Primary localized osteoarthrosis, lower leg Pre-op evaluation- Primary Preoperative examination, unspecified Hyperlipidemia, unspecified hyperlipidemia type Coronary artery disease involving [place] coronary artery of [place] heart without angina pectoris PAF (paroxysmal atrial fibrillation) (HCC) Atrial fibrillation Multinodular goiter Nontoxic multinodular goiter BMI 37.0-37.9, adult Body Mass Index 37.0-37.9, adult Spider bite wound, undetermined intent, subsequent encounter Primary osteoarthritis of left knee Primary localized osteoarthrosis, lower leg Primary osteoarthritis of left knee Primary localized osteoarthrosis, lower leg documented in this encounter [facility] Plan of care note* Visit Details Visit Type -PT SOC Discipline -Physical Therapy Problems Problem Description Start Date Status Goals Interve ntions Medication Education Disciplines: Skilled Services 01/04/2023 Active 1 goal linked to scheduled/documen macie intervention 1 goal intervention scheduled/documen macie in this visit Sepsis Disciplines: Skilled Services 01/04/2023 Active 1 goal linked to scheduled/documen macie intervention 1 goal intervention scheduled/documen macie in this visit Physician Specific Parameters Disciplines: Skilled Services 01/04/2023 Active 1 goal linked to scheduled/documen macie intervention 1 goal intervention scheduled/documen macie in this visit Risk for Falls Disciplines: Skilled Services 01/04/2023 Active 1 goal linked to scheduled/documen macie intervention 1 goal intervention scheduled/documen macie in this visit Pain Disciplines: Skilled Services 01/04/2023 Active 1 goal linked to scheduled/documen macie intervention 1 goal intervention scheduled/documen macie in this visit High Risk Medications Disciplines: Skilled Services 01/04/2023 Active 1 goal linked to scheduled/documen macie intervention 2 goal interventions scheduled/documen macie in this visit Discharge Disciplines: Skilled Services 01/04/2023 Active 1 goal linked to scheduled/documen macie intervention 1 goal intervention scheduled/documen macie in this visit Advance Directives Disciplines: Skilled Services 01/04/2023 Resolved on 01/04/2023 1 goal linked to scheduled/documen macie intervention 1 goal intervention scheduled/documen macie in this visit PT Impaired muscle performance and/or ROM Disciplines: PT 01/04/2023 Active 1 goal linked to scheduled/documen macie intervention 1 goal intervention scheduled/documen macie in this visit PT Impaired mobility Disciplines: PT 01/04/2023 Active 2 goals linked to scheduled/documen macie interventions 2 goal interventions scheduled/documen macie in this visit PT Impaired gait Disciplines: PT 01/04/2023 Active 1 goal linked to scheduled/documen macie intervention 1 goal intervention scheduled/documen macie in this visit PT Orthopedic Condition Disciplines: PT 01/04/2023 Active 1 goal linked to scheduled/documen macie intervention 3 goal interventions scheduled/documen macie in this visit PT Learning Assessment Disciplines: PT 01/04/2023 Active 1 goal linked to scheduled/documen macie intervention 1 goal intervention scheduled/documen macie in this visit PT Cardiovascular Disease Disciplines: PT 01/04/2023 Active 1 goal linked to scheduled/documen macie intervention 1 goal intervention scheduled/documen macie in this visit Goals Goal Associated Problem Outcome Goal Met? Visit Notes Patient/caregiver will demonstrate ability to obtain, store, identify and administer ordered medications, keep accurate medication list in home, and adhere to medication schedule Description: Patient/caregiver will demonstrate ability to obtain, store, identify and administer ordered medications, keep accurate medication list in home, and adhere to medication schedule by 03.04.23. Medication Education No Patient/caregiver will be able to identify and report symptoms of sepsis Description: Patient/caregiver will be able to identify signs/symptoms of sepsis infection and will verbalize actions to take if suspected by 03.04.23. Sepsis No Patient to maintain parameters within physician-specified ranges throughout certification period Physician Specific Parameters No Manage Risk for falls Description: Patient/caregiver will verbalize knowledge of individualized fall prevention strategies by 03.04.23. Risk for Falls No Manage Pain Description: Patient/caregiver will verbalize knowledge and understanding of appropriate techniques to control pain, including pain medication and non-pharmacological techniques. Patient will verbalize or demonstrate an acceptable level of pain as evidenced by a pain score of 0/10 and improvement in ability to perform activities of daily living to be achieved by 03.04.23. Pain No Patient/caregiver will teach back high risk medication side effect and precaution education High Risk Medications No Manage discharge planning Description: Patient/caregiver will verbalize understanding of ongoing discharge plan provided related to disease management, arrangements for outpatient and/or community services, obtaining medications, supplies, and DME, as needed throughout certification period. Discharge No Patient/caregiver will make healthcare providers aware of and any changes to Advance Directives throughout certification period Advance Directives Completed Yes Improved Muscle Performance and/or ROM Description: LTG: Patient and/or caregiver will verbalize/demonstrate independence with home exercise program, to improve functional mobility, to be achieved by 01.20.23. LTG: Patient will demonstrate improved right knee active range of motion to 0-100 degrees, to meet functional goals, to be achieved by 01.20.23. PT Impaired muscle performance and/or ROM No Improved Transfers Description: STG: Patient will demonstrate safe transfers to/from bed, chair and toilet independently with AD, to be achieved by 01.13.23. LTG: Patient will demonstrate safe transfers to/from shower/tub and car independently with AD, to be achieved by 01.20.23. PT Impaired mobility No Improved Bed Mobility Description: STG: Patient will demonstrate improved bed mobility, ability to position self and supine <> sit independently to be achieved by 01.13.23. PT Impaired mobility No Improved Gait Description: LTG: Patient will demonstrate improved gait ability as evidenced by ambulation 200 feet with LRD independently, to return to safe household and community ambulation, in order to return to community ambulation, to be achieved by 01.20.23. PT Impaired gait No Manage Orthopedic Condition Description: Improve patient and/or caregiver understanding of post surgical and/or non-surgical orthopedic intervention management as evidenced by patient and/or caregiver able to verbalize, demonstrate, and teach back instruction, to be achieved by 01.20.23. PT Orthopedic Condition No Demonstrate understanding of education Description: Patient and/or caregiver will understand educational instruction to be achieved by 01.20.23. PT Learning Assessment No Manage Secondary Cardiovascular disease Description: Improve patient and/or caregiver understanding of secondary cardiovascular disease management as evidenced by patient and/or caregiver able to verbalize, demonstrate, and teach back instruction, to be achieved by 01.20.23. PT Cardiovascular Disease No Interventions Intervention Associated Problem/Goal Status Variance Visit Notes Medication Education Description: Evaluate/instruct patient/caregiver on obtaining, storing, identifying and administering ordered medications as well as keeping accurate medication list in the home and adhereing to medication schedule Problem:Medication Education Goal:Patient/caregive r will demonstrate ability to obtain, store, identify and administer ordered medications, keep accurate medication list in home, and adhere to medication schedule Completed Patient instructed on importance of keeping accurate medication list in home, adhering to medication schedule and med land use planner set up. Risk of Sepsis Description: Patient is at risk for sepsis. Monitor closely for s/s of sepsis. Problem:Sepsis Goal:Patient/caregive r will be able to identify and report symptoms of sepsis Completed SPO2 Description: Notify Dr. Ferreira and stop activity if pulse ox is <92% at rest. Problem:Physician Specific Parameters Goal:Patient to maintain parameters within physician-specified ranges throughout certification period Completed Instruct on individual fall risk factors and strategies to prevent falls and injuries caused by falls. Problem:Risk for Falls Goal:Manage Risk for falls Completed PT: Patient and Caregiver instructed on Eliminating Environmental Hazards: Keep pathways clear, Keep pets out of pathways, Remove unsafe rugs, Move furniture from pathways, Keep rooms and walkways well lit, Install hand rails/grab bars, Wear supportive shoes or non-skid socks and Keep frequently used items within reach Managing Impaired Functional Mobility: Modification of current activities: proper activity dosing, using good judgement, Use assistive device(s): Walker, Raised Toilet Seat and Bedside Commode and Caregiver to provide assist with: Ambulation, Steps, Transfers and ADL/IADLs Instruct on pain and instruct on strategies to control pain Problem:Pain Goal:Manage Pain Completed patient instructed on techniques to control pain including Pharmacological measures and Non-Pharmacological measures; rest, positioning/elevation, mobility/therapeutic exercise, distraction, breathing/relaxation, use of DME/assistive devices and use of thermal modalities, apply ice to affected area for the following prescribed frequency: prn. Opioids- educated on high risk medication Problem:High Risk Medications Goal:Patient/caregive r will teach back high risk medication side effect and precaution education Completed patient educated on taking medication(s) as prescribed by provider. Do not stop medication or alter doses without speaking with your provider. Discuss medication effectiveness or side effect concerns with your provider and home care team. Only take opioids as prescribed, do not share your medications, and take proper precautions in storing and properly disposing of opioids once no longer needed. Possible side effects of opioid medication including sedation, decreased rate of breathing, and constipation. Report over sedation to prescribing provider and practice deep breathing techniques every hour while awake. Prevent constipation by increasing water and fiber intake, increasing activity as tolerated, and use stool softener(s) as prescribed. Antiplatelet- educated on high risk medication Problem:High Risk Medications Goal:Patient/caregive r will teach back high risk medication side effect and precaution education Completed patient educated on taking medication(s) as prescribed by provider. Do not stop medication or alter doses without speaking with your provider. Discuss medication effectiveness or side effect concerns with your provider and home care team. Discuss all medications you are taking, even [id number] medicines, with your provider and pharmacist since many drugs can interact with antiplatelet medications. If you forget to take a dose, DO NOT take a double dose. Take the missed dose as soon as possible on the same day. DO NOT take a double dose the next day to make up for the missed dose. Watch for signs of abnormal or excessive bleeding and bruising (refer to Bleeding Precautions education). Call your health care provider right away if you suspect something is wrong. Instruct on ongoing discharge plan Problem:Discharge Goal:Manage discharge planning Completed Ongoing Discharge plan: Discharge plan discussed with patient including frequency and duration for home PT and plan for transition to: outpatient therapy. Determine patient's Advance Directive Status Description: Patient does have advance directives. Patient's Advance Directives determined to be available in Home Healthcare DPOA and Living Will. Problem:Advance Directives Goal:Patient/caregive r will make healthcare providers aware of and any changes to Advance Directives throughout certification period Completed Discussed Advance Directives with Patient and/or Caregiver. Referred patient to Home Care handbook for further information on Healthcare DPOA & Living Will. Physical Therapy Therapeutic Exercises Problem:PT Impaired muscle performance and/or ROM Goal:Improved Muscle Performance and/or ROM Completed patient instructed on strengthening and range of motion exercises including: Supine x 10 B ap, qs, gs with vcs and exercise sheet used for education - instruction to do every waking hour. BID-TID x 10 - AA heel slides (sheet to help with flexion), hip abduction. Pain level increased and patient unable to progress exercises today. Physical Therapy Transfer Training Problem:PT Impaired mobility Goal:Improved Transfers Completed Transfer training and instruction to patient on safe transfers to and from bed and chair: Sit to/from stand: PT provided supervision and min vcs to facilitate safe and proper technique for transfers, including hand placement, set up, pausing to self monitor after each transfer. This resulted in good follow through today. PT did need to stabilize the reclining chair as it swivels and rocks. Patient advised that CG needs to assist for all transfers at this time. Commode is too low; spouse went out to purchase an elevated seat and will put it onto the commode. He just obtained as PT completing SOC visit. Physical Therapy Bed Mobility Training Problem:PT Impaired mobility Goal:Improved Bed Mobility Completed Bed mobility training and instruction to patient, including supine<>sit and repositioning : Sit to/from supine: PT provided supervision and min vcs to facilitate safe and proper technique for transfers, including hand placement, set up, pausing to self monitor after each transfer. This resulted in good follow through today. Minimal difficulty getting RLE onto bed d/t pain. Physical Therapy Gait Training Problem:PT Impaired gait Goal:Improved Gait Completed Gait training and instruction to patient on safe ambulation with front wheeled walker : PT provided sba/vcs to facilitate safe and proper technique for ambulation and reinforce fall prevention strategies. WBAT AD: FWW Distance: x 50' Deviations: Antalgic, unequal w/s and stride length Instruct on orthopedic precautions and weight bearing restrictions Description: Orthopedic precautions including right total knee: no knee flexed over pillow at rest, no kneeling, no squatting and no twisting. Weight bearing restrictions include: WBAT of involved extremity. Problem:PT Orthopedic Condition Goal:Manage Orthopedic Condition Completed patient instructed on orthopedic precautions and weight bearing restrictions. Instruct on management of edema Problem:PT Orthopedic Condition Goal:Manage Orthopedic Condition Completed Instruct patient on management of edema including elevation of RLE above the level of the heart, ice and benefits of activity. Instruct on self-management of post surgical and/or non-surgical orthopedic intervention Problem:PT Orthopedic Condition Goal:Manage Orthopedic Condition Completed patient and caregiver instructed on managagement of orthopedic condition, incision care: inspect area daily and immediately report concerns to ortho team, signs and symptoms of infection, signs and symptoms of DVT/PE, follow provider guidance for showering , instructed on when to call provider and instructed on when to call 911. Instruct and educate on knowledge deficits Problem:PT Learning Assessment Goal:Demonstrate understanding of education Completed patient and caregiver verbalize and/or demonstrate understanding of physical therapy education including cardiac disease management, orthopedic condition management, weight bearing precautions, pain management, fall prevention strategies, integumentary and incision/wound care management, infection control precautions, functional activity and home exercise program. Education methods include: verbal cues, written instructions and teach back. Further education required to improve knowledge and compliance with orthopedic condition management, pain management, fall prevention strategies, integumentary and incision/wound care management, infection control precautions, functional activity and home exercise program. Instruct on signs, symptoms, and management of secondary cardiovascular disease Problem:PT Cardiovascular Disease Goal:Manage Secondary Cardiovascular disease Completed Instructed patient on exercise and activity guidelines and instructed on when to call provider. [facility] Visit Details Visit Type -MASTER OF CEREMONIES ROUTINE Discipline -Physical Therapy Problems Problem Description Start Date Status Goals Interve ntions Medication Education Disciplines: Skilled Services 01/04/2023 Active 1 goal linked to scheduled/documen macie intervention 1 goal intervention scheduled/document ed in this visit Sepsis Disciplines: Skilled Services 01/04/2023 Active 1 goal linked to scheduled/documen macie intervention 1 goal intervention scheduled/document ed in this visit Physician Specific Parameters Disciplines: Skilled Services 01/04/2023 Active 1 goal linked to scheduled/documen macie intervention 1 goal intervention scheduled/document ed in this visit Risk for Falls Disciplines: Skilled Services 01/04/2023 Active 1 goal linked to scheduled/documen macie intervention 1 goal intervention scheduled/document ed in this visit Pain Disciplines: Skilled Services 01/04/2023 Active 1 goal linked to scheduled/documen macie intervention 1 goal intervention scheduled/document ed in this visit Discharge Disciplines: Skilled Services 01/04/2023 Active 1 goal linked to scheduled/documen macie intervention 1 goal intervention scheduled/document ed in this visit PT Impaired muscle performance and/or ROM Disciplines: PT 01/04/2023 Active 1 goal linked to scheduled/documen macie intervention 1 goal intervention scheduled/document ed in this visit PT Impaired gait Disciplines: PT 01/04/2023 Active 1 goal linked to scheduled/documen macie intervention 1 goal intervention scheduled/document ed in this visit PT Orthopedic Condition Disciplines: PT 01/04/2023 Active 1 goal linked to scheduled/documen macie intervention 2 goal interventions scheduled/document ed in this visit PT Learning Assessment Disciplines: PT 01/04/2023 Active 1 goal linked to scheduled/documen macie intervention 1 goal intervention scheduled/document ed in this visit PT Cardiovascular Disease Disciplines: PT 01/04/2023 Active 1 goal linked to scheduled/documen macie intervention 1 goal intervention scheduled/document ed in this visit Goals Goal Associated Problem Outcome Goal Met? Visit Notes Patient/caregiver will demonstrate ability to obtain, store, identify and administer ordered medications, keep accurate medication list in home, and adhere to medication schedule Description: Patient/caregiver will demonstrate ability to obtain, store, identify and administer ordered medications, keep accurate medication list in home, and adhere to medication schedule by 03.04.23. Medication Education No Patient/caregiver will be able to identify and report symptoms of sepsis Description: Patient/caregiver will be able to identify signs/symptoms of sepsis infection and will verbalize actions to take if suspected by 03.04.23. Sepsis No Patient to maintain parameters within physician-specified ranges throughout certification period Physician Specific Parameters No Manage Risk for falls Description: Patient/caregiver will verbalize knowledge of individualized fall prevention strategies by 03.04.23. Risk for Falls No Manage Pain Description: Patient/caregiver will verbalize knowledge and understanding of appropriate techniques to control pain, including pain medication and non-pharmacological techniques. Patient will verbalize or demonstrate an acceptable level of pain as evidenced by a pain score of 0/10 and improvement in ability to perform activities of daily living to be achieved by 03.04.23. Pain No Manage discharge planning Description: Patient/caregiver will verbalize understanding of ongoing discharge plan provided related to disease management, arrangements for outpatient and/or community services, obtaining medications, supplies, and DME, as needed throughout certification period. Discharge No Improved Muscle Performance and/or ROM Description: LTG: Patient and/or caregiver will verbalize/demonstrate independence with home exercise program, to improve functional mobility, to be achieved by 01.20.23. LTG: Patient will demonstrate improved right knee active range of motion to 0-100 degrees, to meet functional goals, to be achieved by 01.20.23. PT Impaired muscle performance and/or ROM No Improved Gait Description: LTG: Patient will demonstrate improved gait ability as evidenced by ambulation 200 feet with LRD independently, to return to safe household and community ambulation, in order to return to community ambulation, to be achieved by 01.20.23. PT Impaired gait No Manage Orthopedic Condition Description: Improve patient and/or caregiver understanding of post surgical and/or non-surgical orthopedic intervention management as evidenced by patient and/or caregiver able to verbalize, demonstrate, and teach back instruction, to be achieved by 01.20.23. PT Orthopedic Condition No Demonstrate understanding of education Description: Patient and/or caregiver will understand educational instruction to be achieved by 01.20.23. PT Learning Assessment No Manage Secondary Cardiovascular disease Description: Improve patient and/or caregiver understanding of secondary cardiovascular disease management as evidenced by patient and/or caregiver able to verbalize, demonstrate, and teach back instruction, to be achieved by 01.20.23. PT Cardiovascular Disease No Interventions Intervention Associated Problem/Goal Status Variance Visit Notes Medication Education Description: Evaluate/instruct patient/caregiver on obtaining, storing, identifying and administering ordered medications as well as keeping accurate medication list in the home and adhereing to medication schedule Problem:Medication Education Goal:Patient/caregive r will demonstrate ability to obtain, store, identify and administer ordered medications, keep accurate medication list in home, and adhere to medication schedule Completed Patient instructed on importance of keeping accurate medication list in home and adhering to medication schedule. Risk of Sepsis Description: Patient is at risk for sepsis. Monitor closely for s/s of sepsis. Problem:Sepsis Goal:Patient/caregive r will be able to identify and report symptoms of sepsis Completed SPO2 Description: Notify Dr. Ferreira and stop activity if pulse ox is <92% at rest. Problem:Physician Specific Parameters Goal:Patient to maintain parameters within physician-specified ranges throughout certification period Completed Instruct on individual fall risk factors and strategies to prevent falls and injuries caused by falls. Problem:Risk for Falls Goal:Manage Risk for falls Completed PT: Patient instructed on Managing Impaired Functional Mobility: Use assistive device(s): front wheeled walker Managing Pain Instruct on pain and instruct on strategies to control pain Problem:Pain Goal:Manage Pain Completed patient instructed on techniques to control pain including Pharmacological measures and Non-Pharmacological measures; positioning/elevation and use of thermal modalities, apply ice to affected area for the following prescribed frequency: prn. Instruct on ongoing discharge plan Problem:Discharge Goal:Manage discharge planning Completed Ongoing Discharge plan: Discharge plan discussed with patient including frequency and duration for home PT and plan for transition to: outpatient therapy. Physical Therapy Therapeutic Exercises Problem:PT Impaired muscle performance and/or ROM Goal:Improved Muscle Performance and/or ROM Completed patient instructed on strengthening and range of motion exercises including ankle pumps, quad and glut sets, hip abd and add, saq, heel slides w/ strap, standing heel riases and hams curl x's 10 each. step flexion stretch and seated heel slides x's 10 with verbal and visual cues for correct form . patient instructed to perform home exercise program twice a day which included above ex. Physical Therapy Gait Training Problem:PT Impaired gait Goal:Improved Gait Completed Gait training and instruction to patient on safe ambulation with front wheeled walker for 3x's 50 feet with supervision, with verbal cues for corrections of gait deviations including heel to toe . Instruct on management of edema Problem:PT Orthopedic Condition Goal:Manage Orthopedic Condition Completed Instruct patient on management of edema including elevation of RLE above the level of the heart and ice. Physical therapy to perform surgical incision/wound management Description: Removal of post-op dressing on Dressing removal 7-10 (POD 7 is 01/09). If no drainage is present, leave open to air; if drainage is present, cover with clean dressing and contact provider. Problem:PT Orthopedic Condition Goal:Manage Orthopedic Condition Completed Intervention completed this date. With patients consent, piccture obtaned and uploaded to chart Instruct and educate on knowledge deficits Problem:PT Learning Assessment Goal:Demonstrate understanding of education Completed patient verbalize and/or demonstrate understanding of physical therapy education including pain management and home exercise program. Education methods include: verbal cues. Further education required to improve knowledge and compliance with home exercise program. Instruct on signs, symptoms, and management of secondary cardiovascular disease Problem:PT Cardiovascular Disease Goal:Manage Secondary Cardiovascular disease Completed Instructed patient on definition of cardiovascular disease. [facility] Visit Details Visit Type -MASTER OF CEREMONIES ROUTINE Discipline -Physical Therapy Problems Problem Description Start Date Status Goals Interve ntions Medication Education Disciplines: Skilled Services 01/04/2023 Active 1 goal linked to scheduled/document ed intervention 1 goal intervention scheduled/document ed in this visit Sepsis Disciplines: Skilled Services 01/04/2023 Active 1 goal linked to scheduled/document ed intervention 1 goal intervention scheduled/document ed in this visit Physician Specific Parameters Disciplines: Skilled Services 01/04/2023 Active 1 goal linked to scheduled/document ed intervention 1 goal intervention scheduled/document ed in this visit Risk for Falls Disciplines: Skilled Services 01/04/2023 Active 1 goal linked to scheduled/document ed intervention 1 goal intervention scheduled/document ed in this visit Pain Disciplines: Skilled Services 01/04/2023 Active 1 goal linked to scheduled/document ed intervention 1 goal intervention scheduled/document ed in this visit Discharge Disciplines: Skilled Services 01/04/2023 Active 1 goal linked to scheduled/document ed intervention 2 goal interventions scheduled/document ed in this visit PT Impaired muscle performance and/or ROM Disciplines: PT 01/04/2023 Active 1 goal linked to scheduled/document ed intervention 1 goal intervention scheduled/document ed in this visit PT Impaired gait Disciplines: PT 01/04/2023 Active 1 goal linked to scheduled/document ed intervention 1 goal intervention scheduled/document ed in this visit PT Learning Assessment Disciplines: PT 01/04/2023 Active 1 goal linked to scheduled/document ed intervention 1 goal intervention scheduled/document ed in this visit Goals Goal Associated Problem Outcome Goal Met? Visit Notes Patient/caregiver will demonstrate ability to obtain, store, identify and administer ordered medications, keep accurate medication list in home, and adhere to medication schedule Description: Patient/caregiver will demonstrate ability to obtain, store, identify and administer ordered medications, keep accurate medication list in home, and adhere to medication schedule by 03.04.23. Medication Education No Patient/caregiver will be able to identify and report symptoms of sepsis Description: Patient/caregiver will be able to identify signs/symptoms of sepsis infection and will verbalize actions to take if suspected by 03.04.23. Sepsis No Patient to maintain parameters within physician-specified ranges throughout certification period Physician Specific Parameters No Manage Risk for falls Description: Patient/caregiver will verbalize knowledge of individualized fall prevention strategies by 03.04.23. Risk for Falls No Manage Pain Description: Patient/caregiver will verbalize knowledge and understanding of appropriate techniques to control pain, including pain medication and non-pharmacological techniques. Patient will verbalize or demonstrate an acceptable level of pain as evidenced by a pain score of 0/10 and improvement in ability to perform activities of daily living to be achieved by 03.04.23. Pain No Manage discharge planning Description: Patient/caregiver will verbalize understanding of ongoing discharge plan provided related to disease management, arrangements for outpatient and/or community services, obtaining medications, supplies, and DME, as needed throughout certification period. Discharge No Improved Muscle Performance and/or ROM Description: LTG: Patient and/or caregiver will verbalize/demonstrate independence with home exercise program, to improve functional mobility, to be achieved by 01.20.23. LTG: Patient will demonstrate improved right knee active range of motion to 0-100 degrees, to meet functional goals, to be achieved by 01.20.23. PT Impaired muscle performance and/or ROM No Improved Gait Description: LTG: Patient will demonstrate improved gait ability as evidenced by ambulation 200 feet with LRD independently, to return to safe household and community ambulation, in order to return to community ambulation, to be achieved by 01.20.23. PT Impaired gait No Demonstrate understanding of education Description: Patient and/or caregiver will understand educational instruction to be achieved by 01.20.23. PT Learning Assessment No Interventions Intervention Associated Problem/Goal Status Variance Visit Notes Medication Education Description: Evaluate/instruct patient/caregiver on obtaining, storing, identifying and administering ordered medications as well as keeping accurate medication list in the home and adhereing to medication schedule Problem:Medication Education Goal:Patient/caregive r will demonstrate ability to obtain, store, identify and administer ordered medications, keep accurate medication list in home, and adhere to medication schedule Completed Patient instructed on importance of keeping accurate medication list in home and adhering to medication schedule. Risk of Sepsis Description: Patient is at risk for sepsis. Monitor closely for s/s of sepsis. Problem:Sepsis Goal:Patient/caregive r will be able to identify and report symptoms of sepsis Completed SPO2 Description: Notify Dr. Ferreira and stop activity if pulse ox is <92% at rest. Problem:Physician Specific Parameters Goal:Patient to maintain parameters within physician-specified ranges throughout certification period Completed Instruct on individual fall risk factors and strategies to prevent falls and injuries caused by falls. Problem:Risk for Falls Goal:Manage Risk for falls Completed PT: Patient instructed on Eliminating Environmental Hazards: Keep pets out of pathways Managing Impaired Functional Mobility: Use assistive device(s): front wheeled walker and single point cane Managing Pain Instruct on pain and instruct on strategies to control pain Problem:Pain Goal:Manage Pain Completed patient instructed on techniques to control pain including Pharmacological measures and Non-Pharmacological measures; positioning/elevation and use of thermal modalities, apply ice to affected area for the following prescribed frequency: prn. Deliver [facility] Problem:Discharge Goal:Manage discharge planning Completed Delivered [facility] on 01/15/23 for discharge date of 01/19/23 Patient denies questions/concerns w/ form. Unable to get electronic signature due to computer isses. Instruct on ongoing discharge plan Problem:Discharge Goal:Manage discharge planning Completed Ongoing Discharge plan: Discharge plan discussed with patient including frequency and duration for home PT and plan for transition to: outpatient therapy. Physical Therapy Therapeutic Exercises Problem:PT Impaired muscle performance and/or ROM Goal:Improved Muscle Performance and/or ROM Completed patient instructed on strengthening and range of motion exercises including standing tomasa heel raises, hip abd, flexion, hams curl and 1/4 squats x's 10 each. step flexion stretch and seated SKTC w/ towel for knee flexion with verbal, visual and written cues for correct form. patient instructed to perform home exercise program twice a day which included above ex. Physical Therapy Gait Training Problem:PT Impaired gait Goal:Improved Gait Completed Gait training and instruction to patient on safe ambulation with single point cane for 2x's 50 feet with supervision, with verbal cues for corrections of gait deviations including heel strike and heel to toe. . Instruct and educate on knowledge deficits Problem:PT Learning Assessment Goal:Demonstrate understanding of education Completed patient verbalize and/or demonstrate understanding of physical therapy education including pain management and home exercise program. Education methods include: verbal cues. Further education required to improve knowledge and compliance with home exercise program. [facility] Visit Details Visit Type -[facility]OUTINE Discipline -Physical Therapy Problems Problem Description Start Date Status Goals Interve ntions Sepsis Disciplines: Skilled Services 01/04/2023 Active 1 goal linked to scheduled/document ed intervention 1 goal intervention scheduled/document ed in this visit Physician Specific Parameters Disciplines: Skilled Services 01/04/2023 Active 1 goal linked to scheduled/document ed intervention 1 goal intervention scheduled/document ed in this visit Risk for Falls Disciplines: Skilled Services 01/04/2023 Active 1 goal linked to scheduled/document ed intervention 1 goal intervention scheduled/document ed in this visit Pain Disciplines: Skilled Services 01/04/2023 Active 1 goal linked to scheduled/document ed intervention 1 goal intervention scheduled/document ed in this visit Discharge Disciplines: Skilled Services 01/04/2023 Active 1 goal linked to scheduled/document ed intervention 1 goal intervention scheduled/document ed in this visit PT Impaired muscle performance and/or ROM Disciplines: PT 01/04/2023 Active 1 goal linked to scheduled/document ed intervention 1 goal intervention scheduled/document ed in this visit PT Impaired mobility Disciplines: PT 01/04/2023 Active 1 goal linked to scheduled/document ed intervention 1 goal intervention scheduled/document ed in this visit PT Impaired gait Disciplines: PT 01/04/2023 Active 1 goal linked to scheduled/document ed intervention 1 goal intervention scheduled/document ed in this visit PT Orthopedic Condition Disciplines: PT 01/04/2023 Active 1 goal linked to scheduled/document ed intervention 2 goal interventions scheduled/document ed in this visit PT Learning Assessment Disciplines: PT 01/04/2023 Active 1 goal linked to scheduled/document ed intervention 1 goal intervention scheduled/document ed in this visit Goals Goal Associated Problem Outcome Goal Met? Visit Notes Patient/caregiver will be able to identify and report symptoms of sepsis Description: Patient/caregiver will be able to identify signs/symptoms of sepsis infection and will verbalize actions to take if suspected by 03.04.23. Sepsis No Patient to maintain parameters within physician-specified ranges throughout certification period Physician Specific Parameters No Manage Risk for falls Description: Patient/caregiver will verbalize knowledge of individualized fall prevention strategies by 03.04.23. Risk for Falls No Manage Pain Description: Patient/caregiver will verbalize knowledge and understanding of appropriate techniques to control pain, including pain medication and non-pharmacological techniques. Patient will verbalize or demonstrate an acceptable level of pain as evidenced by a pain score of 0/10 and improvement in ability to perform activities of daily living to be achieved by 03.04.23. Pain No Manage discharge planning Description: Patient/caregiver will verbalize understanding of ongoing discharge plan provided related to disease management, arrangements for outpatient and/or community services, obtaining medications, supplies, and DME, as needed throughout certification period. Discharge No Improved Muscle Performance and/or ROM Description: LTG: Patient and/or caregiver will verbalize/demonstrate independence with home exercise program, to improve functional mobility, to be achieved by 01.20.23. LTG: Patient will demonstrate improved right knee active range of motion to 0-100 degrees, to meet functional goals, to be achieved by 01.20.23. PT Impaired muscle performance and/or ROM No Improved Bed Mobility Description: STG: Patient will demonstrate improved bed mobility, ability to position self and supine <> sit independently to be achieved by 01.13.23. PT Impaired mobility No Improved Gait Description: LTG: Patient will demonstrate improved gait ability as evidenced by ambulation 200 feet with LRD independently, to return to safe household and community ambulation, in order to return to community ambulation, to be achieved by 01.20.23. PT Impaired gait No Manage Orthopedic Condition Description: Improve patient and/or caregiver understanding of post surgical and/or non-surgical orthopedic intervention management as evidenced by patient and/or caregiver able to verbalize, demonstrate, and teach back instruction, to be achieved by 01.20.23. PT Orthopedic Condition No Demonstrate understanding of education Description: Patient and/or caregiver will understand educational instruction to be achieved by 01.20.23. PT Learning Assessment No Interventions Intervention Associated Problem/Goal Status Variance Visit Notes Risk of Sepsis Description: Patient is at risk for sepsis. Monitor closely for s/s of sepsis. Problem:Sepsis Goal:Patient/caregiv er will be able to identify and report symptoms of sepsis Completed SPO2 Description: Notify Dr. Ferreira and stop activity if pulse ox is <92% at rest. Problem:Physician Specific Parameters Goal:Patient to maintain parameters within physician-specified ranges throughout certification period Completed Instruct on individual fall risk factors and strategies to prevent falls and injuries caused by falls. Problem:Risk for Falls Goal:Manage Risk for falls Completed PT: Patient instructed on Eliminating Environmental Hazards: Keep pets out of pathways Managing Impaired Functional Mobility: Use assistive device(s): front wheeled walker Managing Pain Instruct on pain and instruct on strategies to control pain Problem:Pain Goal:Manage Pain Completed patient instructed on techniques to control pain including Non-Pharmacological measures; positioning/elevati on and use of thermal modalities, apply ice to affected area for the following prescribed frequency: prn. Instruct on ongoing discharge plan Problem:Discharge Goal:Manage discharge planning Completed Ongoing Discharge plan: Discharge plan discussed with patient including frequency and duration for home PT and plan for transition to: outpatient therapy. Physical Therapy Therapeutic Exercises Problem:PT Impaired muscle performance and/or ROM Goal:Improved Muscle Performance and/or ROM Completed patient instructed on strengthening and range of motion exercises including tomasa standing heel raises, hip abd and flexion, hams curl and 1/4 squats x's 10 each. step flexion stretch and seated heel slides x's 10 each with verbal and visual cues for correct hold times. patient instructed to perform home exercise program twice a day which included above ex. Physical Therapy Bed Mobility Training Problem:PT Impaired mobility Goal:Improved Bed Mobility Other (specify reason) patient declined due to wants to sleep in chair Physical Therapy Gait Training Problem:PT Impaired gait Goal:Improved Gait Completed Gait training and instruction to patient on safe ambulation with front wheeled walker for 3c's 60 feet with supervision, with verbal cues for corrections of gait deviations including heel to toe. Instruct on orthopedic precautions and weight bearing restrictions Description: Orthopedic precautions including right total knee: no knee flexed over pillow at rest, no kneeling, no squatting and no twisting. Weight bearing restrictions include: WBAT of involved extremity. Problem:PT Orthopedic Condition Goal:Manage Orthopedic Condition Completed patient instructed on orthopedic precautions. Instruct on self-management of post surgical and/or non-surgical orthopedic intervention Problem:PT Orthopedic Condition Goal:Manage Orthopedic Condition Completed patient instructed on signs and symptoms of infection, signs and symptoms of DVT/PE, instructed on when to call provider and instructed on when to call 911. Instruct and educate on knowledge deficits Problem:PT Learning Assessment Goal:Demonstrate understanding of education Completed patient verbalize and/or demonstrate understanding of physical therapy education including pain management and home exercise program. Education methods include: verbal cues. Further education required to improve knowledge and compliance with home exercise program. documented in this encounter [facility] Plan of care note* Visit Details Visit Type -PT AGENCY [facility]ILMAR [facility]I Discipline -Physical Therapy Problems Problem Description Start Date Status Goals Interve ntions Medication Education Disciplines: Skilled Services 01/04/2023 Resolved on 01/19/2023 1 goal linked to scheduled/documen macie intervention 1 goal intervention scheduled/documen macie in this visit Sepsis Disciplines: Skilled Services 01/04/2023 Resolved on 01/19/2023 1 goal linked to scheduled/documen macie intervention 1 goal intervention scheduled/documen macie in this visit Physician Specific Parameters Disciplines: Skilled Services 01/04/2023 Resolved on 01/19/2023 1 goal linked to scheduled/documen macie intervention 1 goal intervention scheduled/documen macie in this visit Risk for Falls Disciplines: Skilled Services 01/04/2023 Resolved on 01/19/2023 1 goal linked to scheduled/documen macie intervention 1 goal intervention scheduled/documen macie in this visit Pain Disciplines: Skilled Services 01/04/2023 Resolved on 01/19/2023 1 goal linked to scheduled/documen macie intervention 1 goal intervention scheduled/documen macie in this visit High Risk Medications Disciplines: Skilled Services 01/04/2023 Resolved on 01/19/2023 1 goal linked to scheduled/documen macie intervention Discharge Disciplines: Skilled Services 01/04/2023 Resolved on 01/19/2023 1 goal linked to scheduled/documen macie intervention 1 goal intervention scheduled/documen macie in this visit PT Impaired muscle performance and/or ROM Disciplines: PT 01/04/2023 Resolved on 01/19/2023 1 goal linked to scheduled/documen macie intervention 1 goal intervention scheduled/documen macie in this visit PT Impaired mobility Disciplines: PT 01/04/2023 Resolved on 01/19/2023 2 goals linked to scheduled/documen macie interventions 2 goal interventions scheduled/documen macie in this visit PT Impaired gait Disciplines: PT 01/04/2023 Resolved on 01/19/2023 2 goals linked to scheduled/documen macie interventions 2 goal interventions scheduled/documen macie in this visit PT Impaired balance Disciplines: PT 01/04/2023 Resolved on 01/19/2023 1 goal linked to scheduled/documen macie intervention 1 goal intervention scheduled/documen macie in this visit PT Orthopedic Condition Disciplines: PT 01/04/2023 Resolved on 01/19/2023 1 goal linked to scheduled/documen macie intervention 3 goal interventions scheduled/documen macie in this visit PT Learning Assessment Disciplines: PT 01/04/2023 Resolved on 01/19/2023 1 goal linked to scheduled/documen macie intervention 1 goal intervention scheduled/documen macie in this visit PT Cardiovascular Disease Disciplines: PT 01/04/2023 Resolved on 01/19/2023 1 goal linked to scheduled/documen macie intervention 1 goal intervention scheduled/documen macie in this visit Goals Goal Associated Problem Outcome Goal Met? Visit Notes Patient/caregiver will demonstrate ability to obtain, store, identify and administer ordered medications, keep accurate medication list in home, and adhere to medication schedule Description: Patient/caregiver will demonstrate ability to obtain, store, identify and administer ordered medications, keep accurate medication list in home, and adhere to medication schedule by 03.04.23. Medication Education Completed Yes Patient/caregiver will be able to identify and report symptoms of sepsis Description: Patient/caregiver will be able to identify signs/symptoms of sepsis infection and will verbalize actions to take if suspected by 03.04.23. Sepsis Completed Yes Patient to maintain parameters within physician-specified ranges throughout certification period Physician Specific Parameters Completed Yes Manage Risk for falls Description: Patient/caregiver will verbalize knowledge of individualized fall prevention strategies by 12.31.23. Risk for Falls Completed Yes Manage Pain Description: Patient/caregiver will verbalize knowledge and understanding of appropriate techniques to control pain, including pain medication and non-pharmacological techniques. Patient will verbalize or demonstrate an acceptable level of pain as evidenced by a pain score of 0/10 and improvement in ability to perform activities of daily living to be achieved by 03.04.23. Pain Completed Yes Patient/caregiver will teach back high risk medication side effect and precaution education High Risk Medications Completed Yes Manage discharge planning Description: Patient/caregiver will verbalize understanding of ongoing discharge plan provided related to disease management, arrangements for outpatient and/or community services, obtaining medications, supplies, and DME, as needed throughout certification period. Discharge Completed Yes Improved Muscle Performance and/or ROM Description: LTG: Patient and/or caregiver will verbalize/demonstrate independence with home exercise program, to improve functional mobility, to be achieved by 01.20.23. LTG: Patient will demonstrate improved right knee active range of motion to 0-100 degrees, to meet functional goals, to be achieved by 01.20.23. PT Impaired muscle performance and/or ROM Completed Yes Improved Transfers Description: STG: Patient will demonstrate safe transfers to/from bed, chair and toilet independently with AD, to be achieved by 01.13.23. LTG: Patient will demonstrate safe transfers to/from shower/tub and car independently with AD, to be achieved by 01.20.23. PT Impaired mobility Completed Yes Improved Bed Mobility Description: STG: Patient will demonstrate improved bed mobility, ability to position self and supine <> sit independently to be achieved by 01.13.23. PT Impaired mobility Completed Yes Improved Stair Climbing Description: LTG: Patient will demonstrate improved stair negotiation as evidenced by ascend/descend exit steps with appropriate AD independently, to safely exit home, to be achieved by 01.20.23. PT Impaired gait Completed Yes Improved Gait Description: LTG: Patient will demonstrate improved gait ability as evidenced by ambulation 200 feet with LRD independently, to return to safe household and community ambulation, in order to return to community ambulation, to be achieved by 01.20.23. PT Impaired gait Completed Yes Improved Balance Description: STG: Patient will demonstrate improved standing balance to meet functional goals as evidenced by tolerating standing exercises with UE support to be achieved by 01.13.23. PT Impaired balance Completed Yes Manage Orthopedic Condition Description: Improve patient and/or caregiver understanding of post surgical and/or non-surgical orthopedic intervention management as evidenced by patient and/or caregiver able to verbalize, demonstrate, and teach back instruction, to be achieved by 01.20.23. PT Orthopedic Condition Completed Yes Demonstrate understanding of education Description: Patient and/or caregiver will understand educational instruction to be achieved by 01.20.23. PT Learning Assessment Completed Yes Manage Secondary Cardiovascular disease Description: Improve patient and/or caregiver understanding of secondary cardiovascular disease management as evidenced by patient and/or caregiver able to verbalize, demonstrate, and teach back instruction, to be achieved by 01.20.23. PT Cardiovascular Disease Completed Yes Interventions Intervention Associated Problem/Goal Status Variance Visit Notes Medication Education Description: Evaluate/instruct patient/caregiver on obtaining, storing, identifying and administering ordered medications as well as keeping accurate medication list in the home and adhereing to medication schedule Problem:Medication Education Goal:Patient/caregive r will demonstrate ability to obtain, store, identify and administer ordered medications, keep accurate medication list in home, and adhere to medication schedule Completed Patient instructed on importance of keeping accurate medication list in home and adhering to medication schedule. Risk of Sepsis Description: Patient is at risk for sepsis. Monitor closely for s/s of sepsis. Problem:Sepsis Goal:Patient/caregive r will be able to identify and report symptoms of sepsis Completed SPO2 Description: Notify Dr. Ferreira and stop activity if pulse ox is <92% at rest. Problem:Physician Specific Parameters Goal:Patient to maintain parameters within physician-specified ranges throughout certification period Completed Instruct on individual fall risk factors and strategies to prevent falls and injuries caused by falls. Problem:Risk for Falls Goal:Manage Risk for falls Completed PT: Patient instructed on Eliminating Environmental Hazards: Keep pathways clear, Keep pets out of pathways, Remove unsafe rugs, Move furniture from pathways and Wear supportive shoes or non-skid socks Managing Impaired Functional Mobility: Use assistive device(s): front wheeled walker Managing Pain Instruct on pain and instruct on strategies to control pain Problem:Pain Goal:Manage Pain Completed patient instructed on techniques to control pain including Pharmacological measures and Non-Pharmacological measures; rest, positioning/elevation and use of thermal modalities, apply ice to affected area . Instruct on final discharge plan and deliver discharge instructions Problem:Discharge Goal:Manage discharge planning Completed Delivered Discharge plan: Discharge plan discussed with patient for plan for transition to: outpatient therapy Physical Therapy Therapeutic Exercises Problem:PT Impaired muscle performance and/or ROM Goal:Improved Muscle Performance and/or ROM Completed patient instructed on strengthening and range of motion exercises including tomasa standing heel raises, hip abd and flexion, hams curl and 1/4 squats x's 10 each. step flexion stretch and seated heel slides x's 10 each with verbal and visual cues for correct hold times. patient instructed to perform home exercise program twice a day which included above ex. Physical Therapy Transfer Training Problem:PT Impaired mobility Goal:Improved Transfers Completed LEMUEL transfers with safe/proper technique Physical Therapy Bed Mobility Training Problem:PT Impaired mobility Goal:Improved Bed Mobility Completed pt can get in and out of bed but is to comfortable to sleep there sleepign in recliner Physical Therapy Stair Training Problem:PT Impaired gait Goal:Improved Stair Climbing Completed up and down 2 steps with rail and sba Physical Therapy Gait Training Problem:PT Impaired gait Goal:Improved Gait Completed Indep amb with ww with steady recip pattern x 100 Physical Therapy Balance Training Problem:PT Impaired balance Goal:Improved Balance Completed pt demonstrates improved dynamic standing balance as evidenced by a tug of 18 Instruct on orthopedic precautions and weight bearing restrictions Description: Orthopedic precautions including right total knee: no knee flexed over pillow at rest, no kneeling, no squatting and no twisting. Weight bearing restrictions include: WBAT of involved extremity. Problem:PT Orthopedic Condition Goal:Manage Orthopedic Condition Completed patient instructed on orthopedic precautions. Instruct on management of edema Problem:PT Orthopedic Condition Goal:Manage Orthopedic Condition Completed Instruct patient on management of edema including elevation of RLE above the level of the heart and ice. Instruct on self-management of post surgical and/or non-surgical orthopedic intervention Problem:PT Orthopedic Condition Goal:Manage Orthopedic Condition Completed patient instructed on managagement of orthopedic condition, eating foods with high protein, signs and symptoms of infection, signs and symptoms of DVT/PE, follow provider guidance for showering and instructed on when to call provider. Instruct and educate on knowledge deficits Problem:PT Learning Assessment Goal:Demonstrate understanding of education Completed patient verbalize and/or demonstrate understanding of physical therapy education including orthopedic condition management, surgical precautions, pain management, fall prevention strategies, home safety, functional activity and home exercise program. Education methods include: verbal cues. Instruct on signs, symptoms, and management of secondary cardiovascular disease Problem:PT Cardiovascular Disease Goal:Manage Secondary Cardiovascular disease Completed Instructed patient on instructed on when to call provider. [facility] Visit Details Visit Type -PT SOC Discipline -Physical Therapy Problems Problem Description Start Date Status Goals Interve ntions Medication Education Disciplines: Skilled Services 08/16/2024 Active 1 goal linked to scheduled/documen macie intervention 1 goal intervention scheduled/document ed in this visit Sepsis Disciplines: Skilled Services 08/16/2024 Active 1 goal linked to scheduled/documen macie intervention 1 goal intervention scheduled/document ed in this visit Physician Specific Parameters Disciplines: Skilled Services 08/16/2024 Active 1 goal linked to scheduled/documen macie intervention 1 goal intervention scheduled/document ed in this visit Risk for Falls Disciplines: Skilled Services 08/16/2024 Active 1 goal linked to scheduled/documen macie intervention 1 goal intervention scheduled/document ed in this visit Pain Disciplines: Skilled Services 08/16/2024 Active 1 goal linked to scheduled/documen macie intervention 1 goal intervention scheduled/document ed in this visit High Risk Medications Disciplines: Skilled Services 08/16/2024 Active 1 goal linked to scheduled/documen macie intervention 2 goal interventions scheduled/document ed in this visit Discharge Disciplines: Skilled Services 08/16/2024 Active 1 goal linked to scheduled/documen macie intervention 2 goal interventions scheduled/document ed in this visit PT Impaired muscle performance and/or ROM Disciplines: PT 08/16/2024 Active 1 goal linked to scheduled/documen macie intervention 1 goal intervention scheduled/document ed in this visit PT Orthopedic Condition Disciplines: PT 08/16/2024 Active 1 goal linked to scheduled/documen macie intervention 4 goal interventions scheduled/document ed in this visit PT Learning Assessment Disciplines: PT 08/16/2024 Active 1 goal linked to scheduled/documen macie intervention 1 goal intervention scheduled/document ed in this visit PT Cardiovascular Disease Disciplines: PT 08/16/2024 Active 1 goal linked to scheduled/documen macie intervention 1 goal intervention scheduled/document ed in this visit Goals Goal Associated Problem Outcome Goal Met? Visit Notes Patient/caregiver will demonstrate ability to obtain, store, identify and administer ordered medications, keep accurate medication list in home, and adhere to medication schedule Description: Patient/caregiver will demonstrate ability to obtain, store, identify and administer ordered medications, keep accurate medication list in home, and adhere to medication schedule by 10/14/24. Medication Education No Patient/caregiver will be able to identify and report symptoms of sepsis Description: Patient/caregiver will be able to identify signs/symptoms of sepsis infection and will verbalize actions to take if suspected by 10/14/24 . Sepsis No Patient to maintain parameters within physician-specified ranges throughout certification period Physician Specific Parameters No Manage Risk for falls Description: Patient/caregiver will verbalize knowledge of individualized fall prevention strategies by 10/14/24 . Risk for Falls No Manage Pain Description: Patient/caregiver will verbalize knowledge and understanding of appropriate techniques to control pain, including pain medication and non-pharmacological techniques. Patient will verbalize or demonstrate an acceptable level of pain as evidenced by a pain score of <5/10 and improvement in ability to perform activities of daily living to be achieved by 10/14/24 Pain No Patient/caregiver will teach back high risk medication side effect and precaution education Description: STG Patient/caregiver will verbalize understanding of high risk medication side effects and precautions to be achieved by 08/16/24. LTG Patient/caregiver will continue to verbalize understanding of high risk medication side effects and precautions throughout certification period. High Risk Medications No Manage discharge planning Description: Patient/caregiver will verbalize understanding of ongoing discharge plan provided related to disease management, arrangements for outpatient and/or community services, obtaining medications, supplies, and DME, as needed throughout certification period. Discharge No Improved Muscle Performance and/or ROM Description: LTG: Patient will demonstrate improved muscle performance to meet functional goals as evidenced by ability to tolerate 10-15 mibutes of therapeutic activity, to be achieved by 09/06/24. . STG: Patient and/or caregiver will verbalize/demonstrate independence with home exercise program, to improve functional mobility, to be achieved by 08/23/24. LTG: Patient will demonstrate improved left knee active range of motion to 0-80 degrees, to meet functional goals, to be achieved by 09/06/24. . PT Impaired muscle performance and/or ROM No Manage Orthopedic Condition Description: Improve patient and/or caregiver understanding of post surgical and/or non-surgical orthopedic intervention management as evidenced by patient and/or caregiver able to verbalize, demonstrate, and teach back instruction, to be achieved by 09/06/24. . PT Orthopedic Condition No Demonstrate understanding of education Description: Patient and/or caregiver will understand educational instruction to be achieved by 09/06/24. . PT Learning Assessment No Manage Secondary Cardiovascular disease Description: Improve patient and/or caregiver understanding of secondary cardiovascular disease management as evidenced by patient and/or caregiver able to verbalize, demonstrate, and teach back instruction, to be achieved by 10/14/24 . PT Cardiovascular Disease No Interventions Intervention Associated Problem/Goal Status Variance Visit Notes Medication Education Description: Evaluate/instruct patient/caregiver on obtaining, storing, identifying and administering ordered medications as well as keeping accurate medication list in the home and adhereing to medication schedule Problem:Medication Education Goal:Patient/caregive r will demonstrate ability to obtain, store, identify and administer ordered medications, keep accurate medication list in home, and adhere to medication schedule Completed Patient instructed on importance of keeping accurate medication list in home, need to take up-to-date medication list to all medical provider appointments and adhering to medication schedule. Risk of Sepsis Description: Patient is at risk for sepsis. Monitor closely for s/s of sepsis. Problem:Sepsis Goal:Patient/caregive r will be able to identify and report symptoms of sepsis Completed SPO2 Description: Notify Dr. Alaniz if pulse ox is <92% at rest. Problem:Physician Specific Parameters Goal:Patient to maintain parameters within physician-specified ranges throughout certification period Completed Instruct on individual fall risk factors and strategies to prevent falls and injuries caused by falls. Problem:Risk for Falls Goal:Manage Risk for falls Completed PT: Patient instructed on Eliminating Environmental Hazards: Keep pathways clear, Keep pets out of pathways, Remove unsafe rugs, Move furniture from pathways, Keep rooms and walkways well lit, Install hand rails/grab bars and Wear supportive shoes or non-skid socks Managing Impaired Functional Mobility: Use assistive device(s): front wheeled walker Managing Pain Instruct on pain and instruct on strategies to control pain Problem:Pain Goal:Manage Pain Completed patient instructed on techniques to control pain including Pharmacological measures and Non-Pharmacological measures; rest, positioning/elevation and use of thermal modalities, apply ice to affected area Opioids- educated on high risk medication Problem:High Risk Medications Goal:Patient/caregive r will teach back high risk medication side effect and precaution education Completed patient educated on taking medication(s) as prescribed by provider. Do not stop medication or alter doses without speaking with your provider. Discuss medication effectiveness or side effect concerns with your provider and home care team. Only take opioids as prescribed, do not share your medications, and take proper precautions in storing and properly disposing of opioids once no longer needed. Possible side effects of opioid medication including sedation, decreased rate of breathing, and constipation. Report over sedation to prescribing provider and practice deep breathing techniques every hour while awake. Prevent constipation by increasing water and fiber intake, increasing activity as tolerated, and use stool softener(s) as prescribed. Antiplatelet- educated on high risk medication Problem:High Risk Medications Goal:Patient/caregive r will teach back high risk medication side effect and precaution education Completed patient educated on taking medication(s) as prescribed by provider. Do not stop medication or alter doses without speaking with your provider. Discuss medication effectiveness or side effect concerns with your provider and home care team. Discuss all medications you are taking, even [id number] medicines, with your provider and pharmacist since many drugs can interact with antiplatelet medications. If you forget to take a dose, DO NOT take a double dose. Take the missed dose as soon as possible on the same day. DO NOT take a double dose the next day to make up for the missed dose. Watch for signs of abnormal or excessive bleeding and bruising (refer to Bleeding Precautions education). Call your health care provider right away if you suspect something is wrong. Instruct on ongoing discharge plan Problem:Discharge Goal:Manage discharge planning Completed Ongoing Discharge plan: Discharge plan discussed with patient including frequency and duration for home PT and plan for transition to: outpatient therapy. Instruct on importance of follow-up appts and continued monitoring with medical provider &/or chronic care clinic Problem:Discharge Goal:Manage discharge planning Completed Education provided on importance of compliance with follow-up appointment(s). Recommendations: patient/caregiver to follow up with scheduling appointment(s) for post-acute/primary care provider/chronic care clinic Physical Therapy Therapeutic Exercises Problem:PT Impaired muscle performance and/or ROM Goal:Improved Muscle Performance and/or ROM Completed patient instructed on strengthening exercises including Supine - AP,GS,QS, SAQ X 10 NO flexion exercises completed due to incision drainage with verbal, tactile and written cues for technique . patient instructed to perform home exercise program twice a day which included hourly ambulation. Instruct on orthopedic precautions and weight bearing restrictions Description: Orthopedic precautions including left total knee: no crossing legs, no knee flexed over pillow at rest, no kneeling, no squatting and no twisting. Weight bearing restrictions include: WBAT of involved extremity. Problem:PT Orthopedic Condition Goal:Manage Orthopedic Condition Completed patient instructed on orthopedic precautions and weight bearing restrictions. Instruct on management of edema Problem:PT Orthopedic Condition Goal:Manage Orthopedic Condition Completed Instruct patient on management of edema including elevation of LLE above the level of the heart and ice. Physical therapy to perform surgical incision/wound management Description: Change ABD's if soiled If no drainage is present, leave open to air; if drainage is present, cover with clean dressing and contact provider. Problem:PT Orthopedic Condition Goal:Manage Orthopedic Condition Completed Intervention completed this date. Instruct on self-management of post surgical and/or non-surgical orthopedic intervention Problem:PT Orthopedic Condition Goal:Manage Orthopedic Condition Completed patient instructed on managagement of orthopedic condition, measures to avoid skin breakdown, staying well hydrated, eating foods with high protein, signs and symptoms of infection, signs and symptoms of DVT/PE, follow provider guidance for showering and instructed on when to call provider. Instruct and educate on knowledge deficits Problem:PT Learning Assessment Goal:Demonstrate understanding of education Completed patient verbalize and/or demonstrate understanding of physical therapy education including orthopedic condition management, weight bearing precautions, surgical precautions, pain management, fall prevention strategies, home safety, functional activity and home exercise program. Education methods include: verbal cues and written instructions. Further education required to improve knowledge and compliance with fall prevention strategies, home safety, functional activity and home exercise program. Instruct on signs, symptoms, and management of secondary cardiovascular disease Problem:PT Cardiovascular Disease Goal:Manage Secondary Cardiovascular disease Completed Instructed patient on instructed on when to call provider. [facility] Visit Details Visit Type -PT ROUTINE Discipline -Physical Therapy Problems Problem Description Start Date Status Goals Interve ntions Sepsis Disciplines: Skilled Services 08/16/2024 Active 1 goal linked to scheduled/document ed intervention 1 goal intervention scheduled/document ed in this visit Physician Specific Parameters Disciplines: Skilled Services 08/16/2024 Active 1 goal linked to scheduled/document ed intervention 1 goal intervention scheduled/document ed in this visit Risk for Falls Disciplines: Skilled Services 08/16/2024 Active 1 goal linked to scheduled/document ed intervention 1 goal intervention scheduled/document ed in this visit PT Impaired muscle performance and/or ROM Disciplines: PT 08/16/2024 Active 1 goal linked to scheduled/document ed intervention 1 goal intervention scheduled/document ed in this visit PT Impaired mobility Disciplines: PT 08/16/2024 Active 2 goals linked to scheduled/document ed interventions 2 goal interventions scheduled/document ed in this visit PT Impaired gait Disciplines: PT 08/16/2024 Active 1 goal linked to scheduled/document ed intervention 1 goal intervention scheduled/document ed in this visit PT Orthopedic Condition Disciplines: PT 08/16/2024 Active 1 goal linked to scheduled/document ed intervention 3 goal interventions scheduled/document ed in this visit PT Learning Assessment Disciplines: PT 08/16/2024 Active 1 goal linked to scheduled/document ed intervention 1 goal intervention scheduled/document ed in this visit Goals Goal Associated Problem Outcome Goal Met? Visit Notes Patient/caregiver will be able to identify and report symptoms of sepsis Description: Patient/caregiver will be able to identify signs/symptoms of sepsis infection and will verbalize actions to take if suspected by 10/14/24 . Sepsis No Patient to maintain parameters within physician-specified ranges throughout certification period Physician Specific Parameters No Manage Risk for falls Description: Patient/caregiver will verbalize knowledge of individualized fall prevention strategies by 10/14/24 . Risk for Falls No Improved Muscle Performance and/or ROM Description: LTG: Patient will demonstrate improved muscle performance to meet functional goals as evidenced by ability to tolerate 10-15 mibutes of therapeutic activity, to be achieved by 09/06/24. . STG: Patient and/or caregiver will verbalize/demonstrate independence with home exercise program, to improve functional mobility, to be achieved by 08/23/24. LTG: Patient will demonstrate improved left knee active range of motion to 0-80 degrees, to meet functional goals, to be achieved by 09/06/24. . PT Impaired muscle performance and/or ROM No Improved Transfers Description: LTG: Patient will demonstrate safe transfers to/from bed, chair, toilet, couch, shower/tub and car independently with AD, to be achieved by 09/06/24. . PT Impaired mobility No Improved Bed Mobility Description: STG: Patient will demonstrate improved ability to position self, supine <> sit and bed mobility independently to be achieved by 08/29/24. PT Impaired mobility No Improved Gait Description: LTG: Patient will demonstrate improved gait ability as evidenced by ambulation 125 feet with front wheeled walker independently with AD, to return to safe household and community ambulation, in order to transition to OP PT , to be achieved by 09/06/24. . PT Impaired gait No Manage Orthopedic Condition Description: Improve patient and/or caregiver understanding of post surgical and/or non-surgical orthopedic intervention management as evidenced by patient and/or caregiver able to verbalize, demonstrate, and teach back instruction, to be achieved by 09/06/24. . PT Orthopedic Condition No Demonstrate understanding of education Description: Patient and/or caregiver will understand educational instruction to be achieved by 09/06/24. . PT Learning Assessment No Interventions Intervention Associated Problem/Goal Status Variance Visit Notes Risk of Sepsis Description: Patient is at risk for sepsis. Monitor closely for s/s of sepsis. Problem:Sepsis Goal:Patient/caregiver will be able to identify and report symptoms of sepsis Completed SPO2 Description: Notify Dr. Alaniz if pulse ox is <92% at rest. Problem:Physician Specific Parameters Goal:Patient to maintain parameters within physician-specified ranges throughout certification period Completed Instruct on individual fall risk factors and strategies to prevent falls and injuries caused by falls. Problem:Risk for Falls Goal:Manage Risk for falls Completed PT: Patient instructed on Eliminating Environmental Hazards: Keep pathways clear, Keep pets out of pathways, Remove unsafe rugs, Move furniture from pathways, Keep rooms and walkways well lit, Install hand rails/grab bars and Wear supportive shoes or non-skid socks Managing Impaired Functional Mobility: Use assistive device(s): front wheeled walker Managing Pain Physical Therapy Therapeutic Exercises Problem:PT Impaired muscle performance and/or ROM Goal:Improved Muscle Performance and/or ROM Completed patient instructed on strengthening and range of motion exercises including Supine - AP,GS,QS, HIP ADD, HIP ABD, HEEL SLIDES, SAQ X 10 Supine passive knee ext x 5min Seated knee flexion to 70 degrees with verbal, tactile and written cues for technque . patient instructed to perform home exercise program twice a day which included hourly ambulation. Physical Therapy Transfer Training Problem:PT Impaired mobility Goal:Improved Transfers Completed Transfer training and instruction to patient on safe transfers to and from chair with stand by assist and verbal cues for technique . Physical Therapy Bed Mobility Training Problem:PT Impaired mobility Goal:Improved Bed Mobility Completed Bed mobility training and instruction to patient, including rolling, supine<>sit and repositioning self with contact guard assist and verbal cues for technique . PT uses leg human resources leader but still needs moda to lift the leg in to the bed Physical Therapy Gait Training Problem:PT Impaired gait Goal:Improved Gait Completed Gait training and instruction to patient on safe ambulation with front wheeled walker for 50' x 2 feet with supervision, with verbal cues for corrections of gait deviations including - pt is using her leg human resources leader to advance the LLE during swing phase as the L quad is still so shut down that the LLE will not even hip hike to move . Instruct on orthopedic precautions and weight bearing restrictions Description: Orthopedic precautions including left total knee: no crossing legs, no knee flexed over pillow at rest, no kneeling, no squatting and no twisting. Weight bearing restrictions include: WBAT of involved extremity. Problem:PT Orthopedic Condition Goal:Manage Orthopedic Condition Completed patient instructed on orthopedic precautions. Instruct on management of edema Problem:PT Orthopedic Condition Goal:Manage Orthopedic Condition Completed Instruct patient on management of edema including elevation of LLE above the level of the heart and ice. Instruct on self-management of post surgical and/or non-surgical orthopedic intervention Problem:PT Orthopedic Condition Goal:Manage Orthopedic Condition Completed patient instructed on managagement of orthopedic condition, measures to avoid skin breakdown, staying well hydrated, eating foods with high protein, signs and symptoms of infection, signs and symptoms of DVT/PE, follow provider guidance for showering and instructed on when to call provider. Instruct and educate on knowledge deficits Problem:PT Learning Assessment Goal:Demonstrate understanding of education Completed patient verbalize and/or demonstrate understanding of physical therapy education including orthopedic condition management, surgical precautions, pain management, fall prevention strategies, home safety, functional activity and home exercise program. Education methods include: verbal cues and written instructions. Further education required to improve knowledge and compliance with weight bearing precautions, surgical precautions, fall prevention strategies, home safety, functional activity and home exercise program. [facility] Visit Details Visit Type -MA[facility] [employer] ROUTINE Discipline -Physical Therapy Problems Problem Description Start Date Status Goals Interve ntions Medication Education Disciplines: Skilled Services 08/16/2024 Active 1 goal linked to scheduled/document ed intervention 1 goal intervention scheduled/document ed in this visit Sepsis Disciplines: Skilled Services 08/16/2024 Active 1 goal linked to scheduled/document ed intervention 1 goal intervention scheduled/document ed in this visit Physician Specific Parameters Disciplines: Skilled Services 08/16/2024 Active 1 goal linked to scheduled/document ed intervention 1 goal intervention scheduled/document ed in this visit Risk for Falls Disciplines: Skilled Services 08/16/2024 Active 1 goal linked to scheduled/document ed intervention 1 goal intervention scheduled/document ed in this visit Pain Disciplines: Skilled Services 08/16/2024 Active 1 goal linked to scheduled/document ed intervention 1 goal intervention scheduled/document ed in this visit Discharge Disciplines: Skilled Services 08/16/2024 Active 1 goal linked to scheduled/document ed intervention 1 goal intervention scheduled/document ed in this visit PT Impaired muscle performance and/or ROM Disciplines: PT 08/16/2024 Active 1 goal linked to scheduled/document ed intervention 1 goal intervention scheduled/document ed in this visit PT Impaired mobility Disciplines: PT 08/16/2024 Active 1 goal linked to scheduled/document ed intervention 1 goal intervention scheduled/document ed in this visit PT Impaired gait Disciplines: PT 08/16/2024 Active 1 goal linked to scheduled/document ed intervention 1 goal intervention scheduled/document ed in this visit PT Orthopedic Condition Disciplines: PT 08/16/2024 Active 1 goal linked to scheduled/document ed intervention 2 goal interventions scheduled/document ed in this visit PT Learning Assessment Disciplines: PT 08/16/2024 Active 1 goal linked to scheduled/document ed intervention 1 goal intervention scheduled/document ed in this visit Goals Goal Associated Problem Outcome Goal Met? Visit Notes Patient/caregiver will demonstrate ability to obtain, store, identify and administer ordered medications, keep accurate medication list in home, and adhere to medication schedule Description: Patient/caregiver will demonstrate ability to obtain, store, identify and administer ordered medications, keep accurate medication list in home, and adhere to medication schedule by 10/14/24. Medication Education No Patient/caregiver will be able to identify and report symptoms of sepsis Description: Patient/caregiver will be able to identify signs/symptoms of sepsis infection and will verbalize actions to take if suspected by 10/14/24 . Sepsis No Patient to maintain parameters within physician-specified ranges throughout certification period Physician Specific Parameters No Manage Risk for falls Description: Patient/caregiver will verbalize knowledge of individualized fall prevention strategies by 10/14/24 . Risk for Falls No Manage Pain Description: Patient/caregiver will verbalize knowledge and understanding of appropriate techniques to control pain, including pain medication and non-pharmacological techniques. Patient will verbalize or demonstrate an acceptable level of pain as evidenced by a pain score of <5/10 and improvement in ability to perform activities of daily living to be achieved by 10/14/24 Pain No Manage discharge planning Description: Patient/caregiver will verbalize understanding of ongoing discharge plan provided related to disease management, arrangements for outpatient and/or community services, obtaining medications, supplies, and DME, as needed throughout certification period. Discharge No Improved Muscle Performance and/or ROM Description: LTG: Patient will demonstrate improved muscle performance to meet functional goals as evidenced by ability to tolerate 10-15 mibutes of therapeutic activity, to be achieved by 09/06/24. . STG: Patient and/or caregiver will verbalize/demonstrate independence with home exercise program, to improve functional mobility, to be achieved by 08/23/24. LTG: Patient will demonstrate improved left knee active range of motion to 0-80 degrees, to meet functional goals, to be achieved by 09/06/24. . PT Impaired muscle performance and/or ROM No Improved Transfers Description: LTG: Patient will demonstrate safe transfers to/from bed, chair, toilet, couch, shower/tub and car independently with AD, to be achieved by 09/06/24. . PT Impaired mobility No Improved Gait Description: LTG: Patient will demonstrate improved gait ability as evidenced by ambulation 125 feet with front wheeled walker independently with AD, to return to safe household and community ambulation, in order to transition to OP PT , to be achieved by 09/06/24. . PT Impaired gait No Manage Orthopedic Condition Description: Improve patient and/or caregiver understanding of post surgical and/or non-surgical orthopedic intervention management as evidenced by patient and/or caregiver able to verbalize, demonstrate, and teach back instruction, to be achieved by 09/06/24. . PT Orthopedic Condition No Demonstrate understanding of education Description: Patient and/or caregiver will understand educational instruction to be achieved by 09/06/24. . PT Learning Assessment No Interventions Intervention Associated Problem/Goal Status Variance Visit Notes Medication Education Description: Evaluate/instruct patient/caregiver on obtaining, storing, identifying and administering ordered medications as well as keeping accurate medication list in the home and adhereing to medication schedule Problem:Medication Education Goal:Patient/caregive r will demonstrate ability to obtain, store, identify and administer ordered medications, keep accurate medication list in home, and adhere to medication schedule Completed Patient instructed on importance of keeping accurate medication list in home. Risk of Sepsis Description: Patient is at risk for sepsis. Monitor closely for s/s of sepsis. Problem:Sepsis Goal:Patient/caregive r will be able to identify and report symptoms of sepsis Completed SPO2 Description: Notify Dr. Alaniz if pulse ox is <92% at rest. Problem:Physician Specific Parameters Goal:Patient to maintain parameters within physician-specified ranges throughout certification period Completed Instruct on individual fall risk factors and strategies to prevent falls and injuries caused by falls. Problem:Risk for Falls Goal:Manage Risk for falls Completed PT: Patient instructed on Managing Impaired Functional Mobility: Use assistive device(s): front wheeled walker Instruct on pain and instruct on strategies to control pain Problem:Pain Goal:Manage Pain Completed patient instructed on techniques to control pain including Pharmacological measures and Non-Pharmacological measures; positioning/elevation and use of thermal modalities, apply ice to affected area for the following prescribed frequency: prn. Instruct on ongoing discharge plan Problem:Discharge Goal:Manage discharge planning Completed Ongoing Discharge plan: Discharge plan discussed with patient including frequency and duration for home PT and plan for transition to: outpatient therapy. Physical Therapy Therapeutic Exercises Problem:PT Impaired muscle performance and/or ROM Goal:Improved Muscle Performance and/or ROM Completed patient instructed on strengthening and range of motion exercises including ap,qs,gs,hip abd and add, saq and heel slides x's 10-15 each. supine ext hang x;5min with verbal and visual cues for form. patient instructed to perform home exercise program three times a day which included above ex. Physical Therapy Transfer Training Problem:PT Impaired mobility Goal:Improved Transfers Completed Transfer training and instruction to patient on safe transfers to and from bed with stand by assist and verbal cues for safety. Training on the following adaptive equipment/durable medical equipment: leg human resources leader. Physical Therapy Gait Training Problem:PT Impaired gait Goal:Improved Gait Completed Gait training and instruction to patient on safe ambulation with front wheeled walker for 2x100 feet with stand by assist, with verbal cues for corrections of gait deviations including heel to toe pattern, patient using leg human resources leader to advance LE. Instruct on orthopedic precautions and weight bearing restrictions Description: Orthopedic precautions including left total knee: no crossing legs, no knee flexed over pillow at rest, no kneeling, no squatting and no twisting. Weight bearing restrictions include: WBAT of involved extremity. Problem:PT Orthopedic Condition Goal:Manage Orthopedic Condition Completed patient instructed on orthopedic precautions. Instruct on self-management of post surgical and/or non-surgical orthopedic intervention Problem:PT Orthopedic Condition Goal:Manage Orthopedic Condition Completed patient instructed on signs and symptoms of infection, signs and symptoms of DVT/PE, instructed on when to call provider and instructed on when to call 911. Instruct and educate on knowledge deficits Problem:PT Learning Assessment Goal:Demonstrate understanding of education Completed patient verbalize and/or demonstrate understanding of physical therapy education including pain management and home exercise program. Education methods include: verbal cues and visual cues. Further education required to improve knowledge and compliance with home exercise program. documented in this encounter [facility] for referral (narrative)* Diagnostic Procedure Only (Routine) - Closed Specialty Diagnoses / Procedures Referred By Sarwat solomon Referred To Contact XR IMAGING Diagnoses Pain Procedures XR KNEE GENERAL 4V AP BOTH/PA BOTH/LAT/MERC BILATERAL RADIOLOGIC EXAM KNEE COMPLETE 4/MORE VIEWS Azalea Álvarez PA-C [address] [place] [address] Xr Imaging Referral ID Status Reason Start Date Expiration Date V isits Requested Visits Authorized [id number] Closed Auto-Generate d Referral 05/10/2021 06/09/2022 1 1 [facility] for referral (narrative)* Diagnostic Procedure Only (Routine) - Pending Review Specialty Diagnoses / Procedures Referred By Contemerita solomon Referred To Contact BR IMAGING Diagnoses Encounter for screening mammogram for breast cancer Procedures BRYAN SCREENING SCREENING MAMMOGRAPHY BI 2-VIEW BREAST INC CAD Silvestre Chance DO [address] [place] [address] Br Imaging [address] [place] [address] Referral ID Status Reason Start Date Expiration Date Visits Requested Visits Authorized [id number] Pending Review Auto-Generat ed Referral 08/31/2021 09/30/2022 1 1 [facility] for referral (narrative)* Diagnostic Procedure Only (Routine) - Pending Review Specialty Diagnoses / Procedures Referred By Contact Referred To Contact [facility]CULAR [facility] FUNCTIONAL [facility] Diagnoses Coronary artery disease involving [place] coronary artery of [place] heart without angina pectoris Procedures NM CARDIAC PERF STRESS/EXERCISE MYOCARDIAL SPECT MULTIPLE STUDIES Sam Feldman DO [address] [place] [address] [facility] [address] [place] [address] Referral ID Status Reason Start Date Expiration Date Visits Requested Visits Authorized [id number] Pending Review Auto-Generat ed Referral 01/03/2022 11/25/2022 1 1 [facility] for referral (narrative)* Outpatient Procedure (Routine) - Authorized Specialty Diagnoses / Procedures Referred By Contac t Referred To Contact [facility] Diagnoses Palpitations Procedures ECHO ECHO TTHRC R-T 2D W/WOM-MODE COMPL SPEC&COLR D Danielle Mart APRN.OVEN BAKER [address] [place] [address] [place] [address] Referral ID Status Reason Start Date Expiration Date Visits Requested Visits Authorized [id number] Authorized Auto-Generat ed Referral 03/23/2022 03/23/2023 1 1 * Outpatient Procedure (Routine) - Closed Specialty Diagnoses / Procedures [facility] Referred To Contact [facility] Diagnoses Palpitations Procedures ECG COMPLETE ECG ROUTINE ECG W/LEAST 12 LDS W/I&R 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 [address] [place] [address] [place] [address] Referral ID Status Reason Start Date Expiration Date V isits Requested Visits Authorized [id number] Closed Auto-Generate d Referral 03/23/2022 03/23/2023 1 1 [facility] for referral (narrative)* Diagnostic Procedure Only (Routine) - Pending Review Specialty Diagnoses / Procedures [facility] Referred To Contact XR IMAGING Diagnoses Right knee pain, unspecified chronicity Procedures XR KNEE GENERAL 4V AP BOTH/PA BOTH/LAT/MERC RIGHT RADIOLOGIC EXAM KNEE COMPLETE 4/MORE VIEWS Liang Rivera MD [address] [place] [address] Xr Imaging Referral ID Status Reason Start Date Expiration Date Visits Requested Visits Authorized [id number] Pending Review Auto-Generat ed Referral 07/05/2022 08/04/2023 1 1 [facility] for referral (narrative)* Diagnostic Procedure Only (Routine) - Pending Review Specialty Diagnoses / Procedures Referred By Contac t Referred To Contact BR IMAGING Diagnoses Encounter for screening mammogram for breast cancer Procedures BRYAN SCREENING SCREENING MAMMOGRAPHY BI 2-VIEW BREAST INC CAD Silvestre Chance DO [address] [place] [address] Br Imaging [address] [place] [address] Referral ID Status Reason Start Date Expiration Date Visits Requested Visits Authorized [id number] Pending Review Auto-Generat ed Referral 08/02/2022 09/01/2023 1 1 T [facility] for referral (narrative)* Diagnostic Procedure Only (Routine) - Authorized Specialty Diagnoses / Procedures Referred By Contac t Referred To Contact [facility]LEC[facility] FUNCTIONAL IMAGING Diagnoses Encounter for screening for cardiovascular disorders Procedures NM CARDIAC PERF STRESS/PHARM MYOCARDIAL SPECT MULTIPLE STUDIES Sam Feldman DO [address] [place] [address] Molecular [facility] Functional Imaging [address] [place] [address] Referral ID Status Reason Start Date Expiration Date Visits Requested Visits Authorized [id number] Authorized Auto-Generat ed Referral 10/10/2022 11/09/2023 1 1 [facility] for referral (narrative)* Diagnostic Procedure Only (Routine) - Closed Specialty Diagnoses / Procedures Referred By Contac t Referred To Contact [facility]LEC[facility] FUNCTIONAL IMAGING Diagnoses Encounter for screening for cardiovascular disorders Procedures NM CARDIAC PERF STRESS/PHARM MYOCARDIAL SPECT MULTIPLE STUDIES Sam Feldman DO [address] [place] [address] Molecular [facility] Functional Imaging [address] [place] [address] Referral ID Status Reason Start Date Expiration Date V isits Requested Visits Authorized [id number] Closed Auto-Generate d Referral 10/10/2022 11/09/2023 1 1 [facility] for referral (narrative)* Outpatient Procedure (Urgent) - Closed Specialty Diagnoses / Procedures Referred By Sarwat t Referred To Contact [facility] Diagnoses Pain and swelling of right lower leg Procedures US LEG VEIN DVT UNL VAS LAB DUP-SCAN XTR VEINS UNILATERAL/LIMITED STUDY Luli White APRN.CNS [address] [place] [address] [facility] [place] [address] [place] [address] Referral ID Status Reason Start Date Expiration Date V isits Requested Visits Authorized [id number] Closed Auto-Generate d Referral 02/15/2023 02/15/2024 1 1 [facility] for referral (narrative)* Diagnostic Procedure Only (Routine) - Pending Review Specialty Diagnoses / Procedures Referred By Sarwat t Referred To Contact BR IMAGING Diagnoses Encounter for screening mammogram for breast cancer Procedures BRYAN SCREENING SCREENING MAMMOGRAPHY BI 2-VIEW BREAST INC CAD Silvestre Chance DO [address] [place] [address] Br Imaging [address] [place] [id number] Referral ID Status Reason Start Date Expiration Date Visits Requested Visits Authorized [id number] Pending Review Auto-Generat ed Referral 07/11/2023 08/09/2024 1 1 [facility] for referral (narrative)* Diagnostic Procedure Only (Routine) - Pending Review Specialty Diagnoses / Procedures Referred By Contac t Referred To Contact XR IMAGING Diagnoses Right knee pain, unspecified chronicity Procedures XR KNEE POST OP 3V AP/LAT/MERCHANT RIGHT RADIOLOGIC EXAMINATION KNEE 3 VIEWS Sam Fabian PA-C [address] [place] [address] [place] [address] Referral ID Status Reason Start Date Expiration Date Visits Requested Visits Authorized [id number] Pending Review Auto-Generat ed Referral 09/04/2023 10/03/2024 1 1 [facility] for referral (narrative)* Diagnostic Procedure Only (Routine) - Closed Specialty Diagnoses / Procedures Referred By Contac t Referred To Contact XR IMAGING Diagnoses Right knee pain, unspecified chronicity Procedures XR KNEE POST OP 3V AP/LAT/MERCHANT RIGHT RADIOLOGIC EXAMINATION KNEE 3 VIEWS Sam Fabian PA-C [address] [place] [address] [place] [address] Referral ID Status Reason Start Date Expiration Date V isits Requested Visits Authorized [id number] Closed Auto-Generate d Referral 09/04/2023 10/03/2024 1 1 T [facility] for referral (narrative)* Diagnostic Procedure Only (Routine) - Closed Specialty Diagnoses / Procedures Referred By Contac t Referred To Contact XR IMAGING Diagnoses Right knee pain, unspecified chronicity Procedures XR KNEE POST OP 3V AP/LAT/MERCHANT RIGHT RADIOLOGIC EXAMINATION KNEE 3 VIEWS Isidro Carranza PA-C [address] [place] [id number] [place] [address] Referral ID Status Reason Start Date Expiration Date V isits Requested Visits Authorized [id number] Closed Auto-Generate d Referral 01/05/2023 02/03/2024 1 1 [facility] for referral (narrative)* Diagnostic Procedure Only (Routine) - Closed Specialty Diagnoses / Procedures Referred By Contac t Referred To Contact XR IMAGING Diagnoses Pain Procedures XR KNEE GENERAL 4V AP BOTH/PA BOTH/LAT/MERC BILATERAL RADIOLOGIC EXAM KNEE COMPLETE 4/MORE VIEWS Nela Ferreira MD [address] [address] [place] [address] Referral ID Status Reason Start Date Expiration Date V isits Requested Visits Authorized [id number] Closed Auto-Generate d Referral 07/14/2022 08/13/2023 1 1 [facility] for referral (narrative)* Diagnostic Procedure Only (Routine) - New Request Specialty Diagnoses / Procedures Referred By Contac t Referred To Contact XR IMAGING Diagnoses Chronic left-sided low back pain without sciatica Procedures XR LUMBAR MOTION 4V AP/LAT/ FLEX/EXT RADEX SPINE LUMBOSACRAL MINIMUM 4 VIEWS Vince Hermosillo DO [address] [place], [place] [id number] Xr Imaging [facility] Referral ID Status Reason Start Date Expiration Date Visits Requested Visits Authorized [id number] New Request Auto-Generat ed Referral 4 04/03/2025 1 1 * Physical Therapy (Routine) - Pending Review Specialty Diagnoses / Procedures Referred By Contac t Referred To Contact [facility] Diagnoses Chronic left-sided low back pain without sciatica Procedures CONSULT TO PHYSICAL THERAPY PHYSICAL THERAPY EVALUATION HIGH COMPLEX 45 [place] [address] [place] [address] [facility] [address] [address] Referral ID Status Reason Start Date Expiration Date Visits Requested Visits Authorized [id number] Pending Review Auto-Generat ed Referral 4 03/04/2025 1 1 [facility] for referral (narrative)* Diagnostic Procedure Only (Routine) - Authorized Specialty Diagnoses / Procedures Referred By Contac t Referred To Contact XR IMAGING Diagnoses Pain Procedures XR KNEE GENERAL 4V AP BOTH/PA BOTH/LAT/MERC LEFT RADIOLOGIC EXAM KNEE COMPLETE 4/MORE VIEWS Eren Coyle DO [address] [place] [address] [place] [address] Referral ID Status Reason Start Date Expiration Date Visits Requested Visits Authorized [id number] Authorized Auto-Generat ed Referral 03/07/2024 04/06/2025 1 1 [facility] for referral (narrative)* Diagnostic Procedure Only (Routine) - New Request Specialty Diagnoses / Procedures [facility] Referred To Contact XR IMAGING Diagnoses Primary osteoarthritis of left knee Procedures XR KNEE POST OP 3V AP/LAT/MERCHANT LEFT RADIOLOGIC EXAMINATION KNEE 3 VIEWS Eren Coyle DO [address] [place] [address] [place] [address] Referral ID Status Reason Start Date Expiration Date Visits Requested Visits Authorized [id number] New Request Auto-Generat ed Referral 04/03/2024 05/03/2025 1 1 * Consult, Test, Treat (Routine) - Authorized Specialty Diagnoses / Procedures Referred By Contac t Referred To Contact Diagnoses Primary osteoarthritis of left knee Procedures REFER TO [facility] - PREOPERATIVE OPTIMIZATION OFFICE/OUTPATIENT NEW HIGH MDM 60 MINUTES Eren Coyle, DO [address] [place] [address] Referral ID Status Reason Start Date Expiration Date Visits Requested Visits Authorized [id number] Authorized PCP Requested Referral 04/03/2024 04/03/2025 1 1 * Outpatient Procedure (Routine) - New Request Specialty Diagnoses / Procedures Referred By Contac t Referred To Contact [facility] Diagnoses Primary osteoarthritis of left knee Procedures ECG COMPLETE ECG ROUTINE ECG W/LEAST 12 LDS W/I&R Eren Coyle DO [address] [place] [address] [facility] [place] [address] [place] [id number] Referral ID Status Reason Start Date Expiration Date Visits Requested Visits Authorized [id number] New Request Auto-Generat ed Referral 04/03/2024 04/03/2025 1 1 * Occupational Therapy (Routine) - Pending Review Specialty Diagnoses / Procedures Referred By Contac t Referred To Contact [facility] Diagnoses Primary osteoarthritis of left knee Procedures CONSULT TO UNDER CUTTER OCCUPATIONAL THERAPY EVAL HIGH COMPLEX 60 MINS Eren Coyle DO [address] [place] [address] [facility] [address] [address] Referral ID Status Reason Start Date Expiration Date Visits Requested Visits Authorized [id number] Pending Review Auto-Generat ed Referral 04/03/2024 04/03/2025 1 1 * Diagnostic Procedure Only (Routine) - Closed Specialty Diagnoses / Procedures Referred By Contac t Referred To Contact XR IMAGING Diagnoses Primary osteoarthritis of left knee Procedures XR LEG FRONTAL HIP TO ANKLE MECHANICAL AXIS BONE LENGTH STUDIES Eren Coyle DO [address] [place] [address] [place] [address] Referral ID Status Reason Start Date Expiration Date V isits Requested Visits Authorized [id number] Closed Auto-Generate d Referral 03/17/2024 04/16/2025 1 1 [facility] for referral (narrative)* Diagnostic Procedure Only (Routine) - Closed Specialty Diagnoses / Procedures Referred By Contac t Referred To Contact XR IMAGING Diagnoses Primary osteoarthritis of left knee Procedures XR LEG FRONTAL HIP TO ANKLE MECHANICAL AXIS BONE LENGTH STUDIES Eren Coyle, DO [address] [place] [address] [place] [address] Referral ID Status Reason Start Date Expiration Date V isits Requested Visits Authorized [id number] Closed Auto-Generate d Referral 03/17/2024 04/16/2025 1 1 * Diagnostic Procedure Only (Routine) - Closed Specialty Diagnoses / Procedures Referred By Contac t Referred To Contact XR IMAGING Diagnoses Pain Procedures XR KNEE GENERAL 4V AP BOTH/PA BOTH/LAT/MERC LEFT RADIOLOGIC EXAM KNEE COMPLETE 4/MORE VIEWS Eren Coyle DO [address] [place] [address] [place] [address] Referral ID Status Reason Start Date Expiration Date V isits Requested Visits Authorized [id number] Closed Auto-Generate d Referral 03/07/2024 04/06/2025 1 1 [facility] for visit Narrative* Diagnostic Procedure Only (Routine) - Closed Specialty Diagnoses / Procedures Referred By Contac t Referred To Contact XR IMAGING Diagnoses Pain Procedures XR KNEE GENERAL 4V AP BOTH/PA BOTH/LAT/MERC BILATERAL RADIOLOGIC EXAM KNEE COMPLETE 4/MORE VIEWS Azalea Álvarez PA-C [address] [place] [address] Xr Imaging Referral ID Status Reason Start Date Expiration Date V isits Requested Visits Authorized [id number] Closed Auto-Generate d Referral 05/10/2021 06/09/2022 1 1 [facility] for visit Narrative* Diagnostic Procedure Only (Routine) - Closed Specialty Diagnoses / Procedures Referred By Contac t Referred To Contact [facility] Diagnoses Encounter for screening for cardiovascular disorders Procedures NM CARDIAC PERF STRESS/PHARM MYOCARDIAL SPECT MULTIPLE STUDIES Sam Feldman DO [address] [place] [address] [facility] [address] [place] [address] Referral ID Status Reason Start Date Expiration Date V isits Requested Visits Authorized [id number] Closed Auto-Generate d Referral 10/10/2022 11/09/2023 1 1 [facility] for visit Narrative* Diagnostic Procedure Only (Routine) - Closed Specialty Diagnoses / Procedures Referred By Contact Referred To Contact [facility] Diagnoses Coronary artery disease involving [place] coronary artery of [place] heart without angina pectoris Procedures NM CARDIAC PERF STRESS/EXERCISE MYOCARDIAL SPECT MULTIPLE STUDIES Sam Feldman DO [address] [place] [address] [facility] [address] [place] [address] Referral ID Status Reason Start Date Expiration Date V isits Requested Visits Authorized [id number] Closed Auto-Generate d Referral 10/20/2022 11/19/2023 1 1 [facility] for visit Narrative* Diagnostic Procedure Only (Routine) - Closed Specialty Diagnoses / Procedures Referred By Contac t Referred To Contact XR IMAGING Diagnoses Right knee pain, unspecified chronicity Procedures XR KNEE POST OP 3V AP/LAT/MERCHANT RIGHT RADIOLOGIC EXAMINATION KNEE 3 VIEWS Sam Fabian PA-C [address] [place] [address] [place] [address] Referral ID Status Reason Start Date Expiration Date V isits Requested Visits Authorized [id number] Closed Auto-Generate d Referral 09/04/2023 10/03/2024 1 1 [facility] for visit Narrative* Diagnostic Procedure Only (Routine) - Closed Specialty Diagnoses / Procedures Referred By Contac t Referred To Contact XR IMAGING Diagnoses Right knee pain, unspecified chronicity Procedures XR KNEE POST OP 3V AP/LAT/MERCHANT RIGHT RADIOLOGIC EXAMINATION KNEE 3 VIEWS Isidro Carranza PA-C [address] [place] [address] [place] [address] Referral ID Status Reason Start Date Expiration Date V isits Requested Visits Authorized [id number] Closed Auto-Generate d Referral 01/05/2023 02/03/2024 1 1 [facility] for visit Narrative* Diagnostic Procedure Only (Routine) - Closed Specialty Diagnoses / Procedures Referred By Contac t Referred To Contact XR IMAGING Diagnoses Pain Procedures XR KNEE GENERAL 4V AP BOTH/PA BOTH/LAT/MERC BILATERAL RADIOLOGIC EXAM KNEE COMPLETE 4/MORE VIEWS Nela Ferreira MD [address] [address] Xr Imaging [facility] Referral ID Status Reason Start Date Expiration Date V isits Requested Visits Authorized [id number] Closed Auto-Generate d Referral 07/14/2022 08/13/2023 1 1 [facility] for visit Narrative* Diagnostic Procedure Only (Routine) - Closed Specialty Diagnoses / Procedures Referred By Contac t Referred To Contact XR IMAGING Diagnoses Pain Procedures XR KNEE GENERAL 4V AP BOTH/PA BOTH/LAT/MERC LEFT RADIOLOGIC EXAM KNEE COMPLETE 4/MORE VIEWS Eren Colye, [address] [place] [address] Xr Imaging [place] [address] Referral ID Status Reason Start Date Expiration Date V isits Requested Visits Authorized [id number] Closed Auto-Generate d Referral 03/07/2024 04/06/2025 1 1 [facility] for visit Narrative* MRI/CT (Routine) - Closed Specialty Diagnoses / Procedures Referred By Contac t Referred To Contact MR IMAGING Diagnoses Benign neoplasm of meninges (HCC) Procedures MRI BRAIN WO/W IVCON MRI BRAIN BRAIN STEM W/O W/CONTRAST MATERIAL Sonia Ibarra MD [address] [place] [address] Phone: tel: fax: MR IMAGING [facility] Referral ID Status Reason Start Date Expiration Date V isits Requested Visits Authorized [id number] Closed Auto-Generate d Referral 01/27/2024 08/25/2024 1 1 [facility] for visit Narrative* MRI/CT (Routine) - Closed Specialty Diagnoses / Procedures Referred By Contac t Referred To Contact CT IMAGING Diagnoses Primary osteoarthritis of left knee Procedures CT KNEE WO IVCON LEFT CT LOWER EXTREMITY W/O CONTRAST MATERIAL Nela Ferreira MD [address] [address] Phone: tel: fax: [place] [address] Referral ID Status Reason Start Date Expiration Date V isits Requested Visits Authorized [id number] Closed Auto-Generate d Referral 07/14/2024 08/13/2025 1 [facility]/Cert (Routine) Specialty Diagnoses / Procedures Referred By Sarwat solomon Ref[facility] [address] [place] [address] Phone: tel: Referral ID Status Reason Start Date Expiration Date Visits Re quested Visits Authorized [id number] 1 1 [facility] Summary Purpose Family History No Family History Records FoundNo Family History Records FoundNo Family History Records FoundNo Family History Records FoundNo Family History Records Found Advance Directives Latest Code Status on File Code Status Date Activated Date Inactivated Comments Full Code 01/04/2023 11:46 AM Latest Code Status on File Code Status Date Activated Date Inactivated Comments Full Code 01/04/2023 11:46 AM Date Activated Date Inactivated Comments 01/04/2023 11:46 AM Date Activated Date Inactivated Comments 01/04/2023 11:46 AM Date Activated Date Inactivated Comments 01/04/2023 11:46 AM 08/14/2024 8:34 AM Date Activated Date Inactivated Comments 08/16/2024 4:41 PM Date Activated Date Inactivated Comments 01/04/2023 11:46 AM 08/14/2024 8:34 AM Date Activated Date Inactivated Comments 08/16/2024 4:41 PM Date Activated Date Inactivated Comments 01/04/2023 11:46 AM 08/14/2024 8:34 AM Health Concerns Problem Noted Date Diagnosed Date 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 [employer] 10/16/2022 Problem Noted Date Diagnosed Date 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 Saxophones 10/16/2022 Problem Noted Date Diagnosed Date 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 Saxophones 10/16/2022 Problem Noted Date Diagnosed Date 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 Saxophones 10/16/2022 Problem Noted Date Diagnosed Date 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 Saxophones 10/16/2022 Problem Noted Date Diagnosed Date 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 Saxophones 10/16/2022 Problem Noted Date Diagnosed Date 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 Saxophones 10/16/2022 Problem Noted Date Diagnosed Date 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 Saxophones 10/16/2022 Problem Noted Date Diagnosed Date 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 Saxophones 10/16/2022 Problem Noted Date Diagnosed Date 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 Saxophones 10/16/2022 Problem Noted Date Diagnosed Date 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 Saxophones 10/16/2022 Problem Noted Date Diagnosed Date 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 Saxophones 10/16/2022 Problem Noted Date Diagnosed Date 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 Saxophones 10/16/2022 Problem Noted Date Diagnosed Date 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 Saxophones 10/16/2022 Problem Noted Date Diagnosed Date 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 Saxophones 10/16/2022 Problem Noted Date Diagnosed Date 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 Saxophones 10/16/2022 Problem Noted Date Diagnosed Date 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 Saxophones 10/16/2022 Problem Noted Date Diagnosed Date 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 Saxophones 10/16/2022 Problem Noted Date Diagnosed Date 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 Saxophones 10/16/2022 Problem Noted Date Diagnosed Date 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 Saxophones 10/16/2022 Problem Noted Date Diagnosed Date 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 Saxophones 10/16/2022 Problem Noted Date Diagnosed Date 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 Saxophones 10/16/2022 Reason for Referral Specialty Diagnoses / Procedures Referred By Sarwat solomon Referred To Contact CT IMAGING Diagnoses Primary osteoarthritis of right knee Preoperative testing Procedures CT KNEE WO IVCON RIGHT CT LOWER EXTREMITY W/O CONTRAST MATERIAL Sam Fabian PA-C [address] [place] [address] Ct Imaging [facility] Referral ID Status Reason Start Date Expiration Date Visits Requested Visits Authorized [id number] Authorized Auto-Generat ed Referral 11/27/2022 12/27/2023 1 1 Referral ID Status Reason Start Date Expiration Date V isits Requested Visits Authorized [id number] Closed Auto-Generate d Referral 11/27/2022 12/27/2023 1 1 Specialty Diagnoses / Procedures Referred By Sarwat solomon Referred To Contact [facility] Diagnoses S/P total knee arthroplasty, right Procedures CONSULT TO PHYSICAL THERAPY PHYSICAL THERAPY EVALUATION HIGH COMPLEX 45 MINS Isidro Carranza PA-C [address] [place] [address] [facility] [place] [address] [place] [address] Referral ID Status Reason Start Date Expiration Date Visits Requested Visits Authorized [id number] Pending Review Auto-Generat ed Referral 3 01/17/2024 1 1 Specialty Diagnoses / Procedures Referred By Contac t Referred To Contact CT IMAGING Diagnoses Acute confusion Procedures CT BRAIN WO IVCON CT HEAD/BRAIN W/O CONTRAST MATERIAL Kayla Veloz, [employer] [address] [place] [address] [place] [address] Referral ID Status Reason Start Date Expiration Date Visits Requested Visits Authorized [id number] Authorized Auto-Generat ed Referral 07/02/2023 07/31/2024 1 1 Specialty Diagnoses / Procedures Referred By Contac t Referred To Contact Neurosurgery Diagnoses Meningioma (HCC) Abnormal CT scan of head Acute confusion Procedures CONSULT TO NEUROSURGERY OFFICE/OUTPATIENT [facility] MDM 60 MINUTES Kayla Veloz, [employer] [address] [place] [address] Referral ID Status Reason Start Date Expiration Date Visits Requested Visits Authorized [id number] Authorized PCP Requested Referral 07/20/2023 07/19/2024 1 1 Specialty Diagnoses / Procedures Referred By Contac t Referred To Contact MR IMAGING Diagnoses Meningioma (HCC) Abnormal CT scan of head Acute confusion Procedures MRI BRAIN WO/W IVCON MRI BRAIN BRAIN STEM W/O W/CONTRAST MATERIAL Kayla Veloz, [employer] [address] [place] [address] [place] [address] Referral ID Status Reason Start Date Expiration Date V isits Requested Visits Authorized [id number] Closed Auto-Generate d Referral 07/20/2023 08/18/2024 1 1 Specialty Diagnoses / Procedures Referred By Contac t Referred To Contact [facility] Diagnoses Aftercare following right knee joint replacement surgery Procedures CONSULT TO PHYSICAL THERAPY PHYSICAL THERAPY EVALUATION HIGH COMPLEX 45 MINS Nela Ferreira MD [address] [address] [facility] [address] [address] Referral ID Status Reason Start Date Expiration Date Visits Requested Visits Authorized [id number] Authorized Auto-Generat ed Referral 03/05/2023 03/04/2024 20 20 Referral ID Status Reason Start Date Expiration Date V isits Requested Visits Authorized [id number] Closed Auto-Generate d Referral 03/05/2023 03/04/2024 1 1 Additional Source Comments INFORMATION SOURCE (unrecogn ized section and content) DATE CREATED AUTHOR 08/23/2017 [facility] DATE CREATED AUTHOR AUTHOR'S ORGANIZ ATION 07/23/2023 [facility] DATE CREATED AUTHOR AUTHOR'S ORGANIZ ATION 06/19/2024 [facility] [place] DATE CREATED AUTHOR AUTHOR'S ORGANIZ ATION 08/16/2024 [facility] DATE CREATED AUTHOR AUTHOR'S ORGANIZ ATION 08/19/2024 [facility] Source Comments (unrecognize d section and content) In the event this informatio n is protected by the Federal Confidentiality of Alcohol and Drug Abuse Patient Records regulations: The Federal rules restrict any use of the information to criminally investigate or prosecute any alcohol or drug abuse patient.[facility] the event this information is protected by the Federal Confidentiality of Alcohol and Drug Abuse Patient Records regulations: The Federal rules restrict any use of the information to criminally investigate or prosecute any alcohol or drug abuse patient.[facility]In the event this information is protected by the Federal Confidentiality of Alcohol and Drug Abuse Patient Records regulations: The Federal rules restrict any use of the information to criminally investigate or prosecute any alcohol or drug abuse patient.[facility] HospitalIn the event this information is protected by the Federal Confidentiality of Alcohol and Drug Abuse Patient Records regulations: The Federal rules restrict any use of the information to criminally investigate or prosecute any alcohol or drug abuse patient.[facility] HospitalIn the event this information is protected by the Federal Confidentiality of Alcohol and Drug Abuse Patient Records regulations: The Federal rules restrict any use of the information to criminally investigate or prosecute any alcohol or drug abuse patient.[facility] HospitalIn the event this information is protected by the Federal Confidentiality of Alcohol and Drug Abuse Patient Records regulations: The Federal rules restrict any use of the information to criminally investigate or prosecute any alcohol or drug abuse patient.[facility] HospitalIn the event this information is protected by the Federal Confidentiality of Alcohol and Drug Abuse Patient Records regulations: The Federal rules restrict any use of the information to criminally investigate or prosecute any alcohol or drug abuse patient.[facility] HospitalIn the event this information is protected by the Federal Confidentiality of Alcohol and Drug Abuse Patient Records regulations: The Federal rules restrict any use of the information to criminally investigate or prosecute any alcohol or drug abuse patient.[facility] HospitalIn the event this information is protected by the Federal Confidentiality of Alcohol and Drug Abuse Patient Records regulations: The Federal rules restrict any use of the information to criminally investigate or prosecute any alcohol or drug abuse patient.[facility] HospitalIn the event this information is protected by the Federal Confidentiality of Alcohol and Drug Abuse Patient Records regulations: The Federal rules restrict any use of the information to criminally investigate or prosecute any alcohol or drug abuse patient.[facility] HospitalIn the event this information is protected by the Federal Confidentiality of Alcohol and Drug Abuse Patient Records regulations: The Federal rules restrict any use of the information to criminally investigate or prosecute any alcohol or drug abuse patient.[facility] HospitalIn the event this information is protected by the Federal Confidentiality of Alcohol and Drug Abuse Patient Records regulations: The Federal rules restrict any use of the information to criminally investigate or prosecute any alcohol or drug abuse patient.[facility] HospitalIn the event this information is protected by the Federal Confidentiality of Alcohol and Drug Abuse Patient Records regulations: The Federal rules restrict any use of the information to criminally investigate or prosecute any alcohol or drug abuse patient.[facility] HospitalIn the event this information is protected by the Federal Confidentiality of Alcohol and Drug Abuse Patient Records regulations: The Federal rules restrict any use of the information to criminally investigate or prosecute any alcohol or drug abuse patient.[facility] HospitalIn the event this information is protected by the Federal Confidentiality of Alcohol and Drug Abuse Patient Records regulations: The Federal rules restrict any use of the information to criminally investigate or prosecute any alcohol or drug abuse patient.[facility] HospitalIn the event this information is protected by the Federal Confidentiality of Alcohol and Drug Abuse Patient Records regulations: The Federal rules restrict any use of the information to criminally investigate or prosecute any alcohol or drug abuse patient.[facility] HospitalIn the event this information is protected by the Federal Confidentiality of Alcohol and Drug Abuse Patient Records regulations: The Federal rules restrict any use of the information to criminally investigate or prosecute any alcohol or drug abuse patient.[facility] HospitalIn the event this information is protected by the Federal Confidentiality of Alcohol and Drug Abuse Patient Records regulations: The Federal rules restrict any use of the information to criminally investigate or prosecute any alcohol or drug abuse patient.[facility] HospitalIn the event this information is protected by the Federal Confidentiality of Alcohol and Drug Abuse Patient Records regulations: The Federal rules restrict any use of the information to criminally investigate or prosecute any alcohol or drug abuse patient.[facility] HospitalIn the event this information is protected by the Federal Confidentiality of Alcohol and Drug Abuse Patient Records regulations: The Federal rules restrict any use of the information to criminally investigate or prosecute any alcohol or drug abuse patient.[facility] HospitalIn the event this information is protected by the Federal Confidentiality of Alcohol and Drug Abuse Patient Records regulations: The Federal rules restrict any use of the information to criminally investigate or prosecute any alcohol or drug abuse patient.[facility] HospitalIn the event this information is protected by the Federal Confidentiality of Alcohol and Drug Abuse Patient Records regulations: The Federal rules restrict any use of the information to criminally investigate or prosecute any alcohol or drug abuse patient.[facility] HospitalIn the event this information is protected by the Federal Confidentiality of Alcohol and Drug Abuse Patient Records regulations: The Federal rules restrict any use of the information to criminally investigate or prosecute any alcohol or drug abuse patient.[facility] HospitalIn the event this information is protected by the Federal Confidentiality of Alcohol and Drug Abuse Patient Records regulations: The Federal rules restrict any use of the information to criminally investigate or prosecute any alcohol or drug abuse patient.[facility] HospitalIn the event this information is protected by the Federal Confidentiality of Alcohol and Drug Abuse Patient Records regulations: The Federal rules restrict any use of the information to criminally investigate or prosecute any alcohol or drug abuse patient.[facility] HospitalIn the event this information is protected by the Federal Confidentiality of Alcohol and Drug Abuse Patient Records regulations: The Federal rules restrict any use of the information to criminally investigate or prosecute any alcohol or drug abuse patient.[facility] HospitalIn the event this information is protected by the Federal Confidentiality of Alcohol and Drug Abuse Patient Records regulations: The Federal rules restrict any use of the information to criminally investigate or prosecute any alcohol or drug abuse patient.[facility] HospitalIn the event this information is protected by the Federal Confidentiality of Alcohol and Drug Abuse Patient Records regulations: The Federal rules restrict any use of the information to criminally investigate or prosecute any alcohol or drug abuse patient.[facility] HospitalIn the event this information is protected by the Federal Confidentiality of Alcohol and Drug Abuse Patient Records regulations: The Federal rules restrict any use of the information to criminally investigate or prosecute any alcohol or drug abuse patient.[facility] HospitalIn the event this information is protected by the Federal Confidentiality of Alcohol and Drug Abuse Patient Records regulations: The Federal rules restrict any use of the information to criminally investigate or prosecute any alcohol or drug abuse patient.[facility] HospitalIn the event this information is protected by the Federal Confidentiality of Alcohol and Drug Abuse Patient Records regulations: The Federal rules restrict any use of the information to criminally investigate or prosecute any alcohol or drug abuse patient.[facility] HospitalIn the event this information is protected by the Federal Confidentiality of Alcohol and Drug Abuse Patient Records regulations: The Federal rules restrict any use of the information to criminally investigate or prosecute any alcohol or drug abuse patient.[facility] HospitalIn the event this information is protected by the Federal Confidentiality of Alcohol and Drug Abuse Patient Records regulations: The Federal rules restrict any use of the information to criminally investigate or prosecute any alcohol or drug abuse patient.[facility] HospitalIn the event this information is protected by the Federal Confidentiality of Alcohol and Drug Abuse Patient Records regulations: The Federal rules restrict any use of the information to criminally investigate or prosecute any alcohol or drug abuse patient.[facility] HospitalIn the event this information is protected by the Federal Confidentiality of Alcohol and Drug Abuse Patient Records regulations: The Federal rules restrict any use of the information to criminally investigate or prosecute any alcohol or drug abuse patient.[facility] HospitalIn the event this information is protected by the Federal Confidentiality of Alcohol and Drug Abuse Patient Records regulations: The Federal rules restrict any use of the information to criminally investigate or prosecute any alcohol or drug abuse patient.[facility] HospitalIn the event this information is protected by the Federal Confidentiality of Alcohol and Drug Abuse Patient Records regulations: The Federal rules restrict any use of the information to criminally investigate or prosecute any alcohol or drug abuse patient.[facility] HospitalIn the event this information is protected by the Federal Confidentiality of Alcohol and Drug Abuse Patient Records regulations: The Federal rules restrict any use of the information to criminally investigate or prosecute any alcohol or drug abuse patient.[facility] HospitalIn the event this information is protected by the Federal Confidentiality of Alcohol and Drug Abuse Patient Records regulations: The Federal rules restrict any use of the information to criminally investigate or prosecute any alcohol or drug abuse patient.[facility] HospitalIn the event this information is protected by the Federal Confidentiality of Alcohol and Drug Abuse Patient Records regulations: The Federal rules restrict any use of the information to criminally investigate or prosecute any alcohol or drug abuse patient.[facility] HospitalIn the event this information is protected by the Federal Confidentiality of Alcohol and Drug Abuse Patient Records regulations: The Federal rules restrict any use of the information to criminally investigate or prosecute any alcohol or drug abuse patient.[facility] HospitalIn the event this information is protected by the Federal Confidentiality of Alcohol and Drug Abuse Patient Records regulations: The Federal rules restrict any use of the information to criminally investigate or prosecute any alcohol or drug abuse patient.[facility] HospitalIn the event this information is protected by the Federal Confidentiality of Alcohol and Drug Abuse Patient Records regulations: The Federal rules restrict any use of the information to criminally investigate or prosecute any alcohol or drug abuse patient.[facility] HospitalIn the event this information is protected by the Federal Confidentiality of Alcohol and Drug Abuse Patient Records regulations: The Federal rules restrict any use of the information to criminally investigate or prosecute any alcohol or drug abuse patient.[facility] HospitalIn the event this information is protected by the Federal Confidentiality of Alcohol and Drug Abuse Patient Records regulations: The Federal rules restrict any use of the information to criminally investigate or prosecute any alcohol or drug abuse patient.[facility] HospitalIn the event this information is protected by the Federal Confidentiality of Alcohol and Drug Abuse Patient Records regulations: The Federal rules restrict any use of the information to criminally investigate or prosecute any alcohol or drug abuse patient.[facility] HospitalIn the event this information is protected by the Federal Confidentiality of Alcohol and Drug Abuse Patient Records regulations: The Federal rules restrict any use of the information to criminally investigate or prosecute any alcohol or drug abuse patient.[facility] HospitalIn the event this information is protected by the Federal Confidentiality of Alcohol and Drug Abuse Patient Records regulations: The Federal rules restrict any use of the information to criminally investigate or prosecute any alcohol or drug abuse patient.[facility] HospitalIn the event this information is protected by the Federal Confidentiality of Alcohol and Drug Abuse Patient Records regulations: The Federal rules restrict any use of the information to criminally investigate or prosecute any alcohol or drug abuse patient.[facility] HospitalIn the event this information is protected by the Federal Confidentiality of Alcohol and Drug Abuse Patient Records regulations: The Federal rules restrict any use of the information to criminally investigate or prosecute any alcohol or drug abuse patient.[facility] HospitalIn the event this information is protected by the Federal Confidentiality of Alcohol and Drug Abuse Patient Records regulations: The Federal rules restrict any use of the information to criminally investigate or prosecute any alcohol or drug abuse patient.[facility] HospitalIn the event this information is protected by the Federal Confidentiality of Alcohol and Drug Abuse Patient Records regulations: The Federal rules restrict any use of the information to criminally investigate or prosecute any alcohol or drug abuse patient.[facility]In the event this information is protected by the Federal Confidentiality of Alcohol and Drug Abuse Patient Records regulations: The Federal rules restrict any use of the information to criminally investigate or prosecute any alcohol or drug abuse patient.[facility] HospitalIn the event this information is protected by the Federal Confidentiality of Alcohol and Drug Abuse Patient Records regulations: The Federal rules restrict any use of the information to criminally investigate or prosecute any alcohol or drug abuse patient.[facility] HospitalIn the event this information is protected by the Federal Confidentiality of Alcohol and Drug Abuse Patient Records regulations: The Federal rules restrict any use of the information to criminally investigate or prosecute any alcohol or drug abuse patient.[facility] HospitalIn the event this information is protected by the Federal Confidentiality of Alcohol and Drug Abuse Patient Records regulations: The Federal rules restrict any use of the information to criminally investigate or prosecute any alcohol or drug abuse patient.[facility] HospitalIn the event this information is protected by the Federal Confidentiality of Alcohol and Drug Abuse Patient Records regulations: The Federal rules restrict any use of the information to criminally investigate or prosecute any alcohol or drug abuse patient.[facility] HospitalIn the event this information is protected by the Federal Confidentiality of Alcohol and Drug Abuse Patient Records regulations: The Federal rules restrict any use of the information to criminally investigate or prosecute any alcohol or drug abuse patient.[facility] HospitalIn the event this information is protected by the Federal Confidentiality of Alcohol and Drug Abuse Patient Records regulations: The Federal rules restrict any use of the information to criminally investigate or prosecute any alcohol or drug abuse patient.[facility] HospitalIn the event this information is protected by the Federal Confidentiality of Alcohol and Drug Abuse Patient Records regulations: The Federal rules restrict any use of the information to criminally investigate or prosecute any alcohol or drug abuse patient.[facility] HospitalIn the event this information is protected by the Federal Confidentiality of Alcohol and Drug Abuse Patient Records regulations: The Federal rules restrict any use of the information to criminally investigate or prosecute any alcohol or drug abuse patient.[facility] HospitalIn the event this information is protected by the Federal Confidentiality of Alcohol and Drug Abuse Patient Records regulations: The Federal rules restrict any use of the information to criminally investigate or prosecute any alcohol or drug abuse patient.[facility] HospitalIn the event this information is protected by the Federal Confidentiality of Alcohol and Drug Abuse Patient Records regulations: The Federal rules restrict any use of the information to criminally investigate or prosecute any alcohol or drug abuse patient.[facility] HospitalIn the event this information is protected by the Federal Confidentiality of Alcohol and Drug Abuse Patient Records regulations: The Federal rules restrict any use of the information to criminally investigate or prosecute any alcohol or drug abuse patient.[facility] HospitalIn the event this information is protected by the Federal Confidentiality of Alcohol and Drug Abuse Patient Records regulations: The Federal rules restrict any use of the information to criminally investigate or prosecute any alcohol or drug abuse patient.[facility] HospitalIn the event this information is protected by the Federal Confidentiality of Alcohol and Drug Abuse Patient Records regulations: The Federal rules restrict any use of the information to criminally investigate or prosecute any alcohol or drug abuse patient.[facility] HospitalIn the event this information is protected by the Federal Confidentiality of Alcohol and Drug Abuse Patient Records regulations: The Federal rules restrict any use of the information to criminally investigate or prosecute any alcohol or drug abuse patient.[facility] HospitalIn the event this information is protected by the Federal Confidentiality of Alcohol and Drug Abuse Patient Records regulations: The Federal rules restrict any use of the information to criminally investigate or prosecute any alcohol or drug abuse patient.[facility] HospitalIn the event this information is protected by the Federal Confidentiality of Alcohol and Drug Abuse Patient Records regulations: The Federal rules restrict any use of the information to criminally investigate or prosecute any alcohol or drug abuse patient.[facility] HospitalIn the event this information is protected by the Federal Confidentiality of Alcohol and Drug Abuse Patient Records regulations: The Federal rules restrict any use of the information to criminally investigate or prosecute any alcohol or drug abuse patient.[facility] HospitalIn the event this information is protected by the Federal Confidentiality of Alcohol and Drug Abuse Patient Records regulations: The Federal rules restrict any use of the information to criminally investigate or prosecute any alcohol or drug abuse patient.[facility] HospitalIn the event this information is protected by the Federal Confidentiality of Alcohol and Drug Abuse Patient Records regulations: The Federal rules restrict any use of the information to criminally investigate or prosecute any alcohol or drug abuse patient.[facility] HospitalIn the event this information is protected by the Federal Confidentiality of Alcohol and Drug Abuse Patient Records regulations: The Federal rules restrict any use of the information to criminally investigate or prosecute any alcohol or drug abuse patient.[facility] HospitalIn the event this information is protected by the Federal Confidentiality of Alcohol and Drug Abuse Patient Records regulations: The Federal rules restrict any use of the information to criminally investigate or prosecute any alcohol or drug abuse patient.[facility] HospitalIn the event this information is protected by the Federal Confidentiality of Alcohol and Drug Abuse Patient Records regulations: The Federal rules restrict any use of the information to criminally investigate or prosecute any alcohol or drug abuse patient.[facility] HospitalIn the event this information is protected by the Federal Confidentiality of Alcohol and Drug Abuse Patient Records regulations: The Federal rules restrict any use of the information to criminally investigate or prosecute any alcohol or drug abuse patient.[facility] HospitalIn the event this information is protected by the Federal Confidentiality of Alcohol and Drug Abuse Patient Records regulations: The Federal rules restrict any use of the information to criminally investigate or prosecute any alcohol or drug abuse patient.[facility] HospitalIn the event this information is protected by the Federal Confidentiality of Alcohol and Drug Abuse Patient Records regulations: The Federal rules restrict any use of the information to criminally investigate or prosecute any alcohol or drug abuse patient.[facility] HospitalIn the event this information is protected by the Federal Confidentiality of Alcohol and Drug Abuse Patient Records regulations: The Federal rules restrict any use of the information to criminally investigate or prosecute any alcohol or drug abuse patient.[facility] HospitalIn the event this information is protected by the Federal Confidentiality of Alcohol and Drug Abuse Patient Records regulations: The Federal rules restrict any use of the information to criminally investigate or prosecute any alcohol or drug abuse patient.[facility] HospitalIn the event this information is protected by the Federal Confidentiality of Alcohol and Drug Abuse Patient Records regulations: The Federal rules restrict any use of the information to criminally investigate or prosecute any alcohol or drug abuse patient.[facility] HospitalIn the event this information is protected by the Federal Confidentiality of Alcohol and Drug Abuse Patient Records regulations: The Federal rules restrict any use of the information to criminally investigate or prosecute any alcohol or drug abuse patient.[facility] HospitalIn the event this information is protected by the Federal Confidentiality of Alcohol and Drug Abuse Patient Records regulations: The Federal rules restrict any use of the information to criminally investigate or prosecute any alcohol or drug abuse patient.[facility] HospitalIn the event this information is protected by the Federal Confidentiality of Alcohol and Drug Abuse Patient Records regulations: The Federal rules restrict any use of the information to criminally investigate or prosecute any alcohol or drug abuse patient.[facility] HospitalIn the event this information is protected by the Federal Confidentiality of Alcohol and Drug Abuse Patient Records regulations: The Federal rules restrict any use of the information to criminally investigate or prosecute any alcohol or drug abuse patient.[facility] HospitalIn the event this information is protected by the Federal Confidentiality of Alcohol and Drug Abuse Patient Records regulations: The Federal rules restrict any use of the information to criminally investigate or prosecute any alcohol or drug abuse patient.[facility] HospitalIn the event this information is protected by the Federal Confidentiality of Alcohol and Drug Abuse Patient Records regulations: The Federal rules restrict any use of the information to criminally investigate or prosecute any alcohol or drug abuse patient.[facility] HospitalIn the event this information is protected by the Federal Confidentiality of Alcohol and Drug Abuse Patient Records regulations: The Federal rules restrict any use of the information to criminally investigate or prosecute any alcohol or drug abuse patient.[facility] HospitalIn the event this information is protected by the Federal Confidentiality of Alcohol and Drug Abuse Patient Records regulations: The Federal rules restrict any use of the information to criminally investigate or prosecute any alcohol or drug abuse patient.[facility] HospitalIn the event this information is protected by the Federal Confidentiality of Alcohol and Drug Abuse Patient Records regulations: The Federal rules restrict any use of the information to criminally investigate or prosecute any alcohol or drug abuse patient.[facility] HospitalIn the event this information is protected by the Federal Confidentiality of Alcohol and Drug Abuse Patient Records regulations: The Federal rules restrict any use of the information to criminally investigate or prosecute any alcohol or drug abuse patient.[facility] HospitalIn the event this information is protected by the Federal Confidentiality of Alcohol and Drug Abuse Patient Records regulations: The Federal rules restrict any use of the information to criminally investigate or prosecute any alcohol or drug abuse patient.[facility] HospitalIn the event this information is protected by the Federal Confidentiality of Alcohol and Drug Abuse Patient Records regulations: The Federal rules restrict any use of the information to criminally investigate or prosecute any alcohol or drug abuse patient.[facility] HospitalIn the event this information is protected by the Federal Confidentiality of Alcohol and Drug Abuse Patient Records regulations: The Federal rules restrict any use of the information to criminally investigate or prosecute any alcohol or drug abuse patient.[facility] HospitalIn the event this information is protected by the Federal Confidentiality of Alcohol and Drug Abuse Patient Records regulations: The Federal rules restrict any use of the information to criminally investigate or prosecute any alcohol or drug abuse patient.[facility] HospitalIn the event this information is protected by the Federal Confidentiality of Alcohol and Drug Abuse Patient Records regulations: The Federal rules restrict any use of the information to criminally investigate or prosecute any alcohol or drug abuse patient.[facility] HospitalIn the event this information is protected by the Federal Confidentiality of Alcohol and Drug Abuse Patient Records regulations: The Federal rules restrict any use of the information to criminally investigate or prosecute any alcohol or drug abuse patient.[facility] HospitalIn the event this information is protected by the Federal Confidentiality of Alcohol and Drug Abuse Patient Records regulations: The Federal rules restrict any use of the information to criminally investigate or prosecute any alcohol or drug abuse patient.[facility] HospitalIn the event this information is protected by the Federal Confidentiality of Alcohol and Drug Abuse Patient Records regulations: The Federal rules restrict any use of the information to criminally investigate or prosecute any alcohol or drug abuse patient.[facility] HospitalIn the event this information is protected by the Federal Confidentiality of Alcohol and Drug Abuse Patient Records regulations: The Federal rules restrict any use of the information to criminally investigate or prosecute any alcohol or drug abuse patient.[facility] HospitalIn the event this information is protected by the Federal Confidentiality of Alcohol and Drug Abuse Patient Records regulations: The Federal rules restrict any use of the information to criminally investigate or prosecute any alcohol or drug abuse patient.[facility] HospitalIn the event this information is protected by the Federal Confidentiality of Alcohol and Drug Abuse Patient Records regulations: The Federal rules restrict any use of the information to criminally investigate or prosecute any alcohol or drug abuse patient.[facility] HospitalIn the event this information is protected by the Federal Confidentiality of Alcohol and Drug Abuse Patient Records regulations: The Federal rules restrict any use of the information to criminally investigate or prosecute any alcohol or drug abuse patient.[facility] HospitalIn the event this information is protected by the Federal Confidentiality of Alcohol and Drug Abuse Patient Records regulations: The Federal rules restrict any use of the information to criminally investigate or prosecute any alcohol or drug abuse patient.[facility] HospitalIn the event this information is protected by the Federal Confidentiality of Alcohol and Drug Abuse Patient Records regulations: The Federal rules restrict any use of the information to criminally investigate or prosecute any alcohol or drug abuse patient.[facility] HospitalIn the event this information is protected by the Federal Confidentiality of Alcohol and Drug Abuse Patient Records regulations: The Federal rules restrict any use of the information to criminally investigate or prosecute any alcohol or drug abuse patient.[facility] HospitalIn the event this information is protected by the Federal Confidentiality of Alcohol and Drug Abuse Patient Records regulations: The Federal rules restrict any use of the information to criminally investigate or prosecute any alcohol or drug abuse patient.[facility] HospitalIn the event this information is protected by the Federal Confidentiality of Alcohol and Drug Abuse Patient Records regulations: The Federal rules restrict any use of the information to criminally investigate or prosecute any alcohol or drug abuse patient.[facility] HospitalIn the event this information is protected by the Federal Confidentiality of Alcohol and Drug Abuse Patient Records regulations: The Federal rules restrict any use of the information to criminally investigate or prosecute any alcohol or drug abuse patient.[facility] HospitalIn the event this information is protected by the Federal Confidentiality of Alcohol and Drug Abuse Patient Records regulations: The Federal rules restrict any use of the information to criminally investigate or prosecute any alcohol or drug abuse patient.[facility] HospitalIn the event this information is protected by the Federal Confidentiality of Alcohol and Drug Abuse Patient Records regulations: The Federal rules restrict any use of the information to criminally investigate or prosecute any alcohol or drug abuse patient.[facility] HospitalIn the event this information is protected by the Federal Confidentiality of Alcohol and Drug Abuse Patient Records regulations: The Federal rules restrict any use of the information to criminally investigate or prosecute any alcohol or drug abuse patient.[facility] HospitalIn the event this information is protected by the Federal Confidentiality of Alcohol and Drug Abuse Patient Records regulations: The Federal rules restrict any use of the information to criminally investigate or prosecute any alcohol or drug abuse patient.[facility] HospitalIn the event this information is protected by the Federal Confidentiality of Alcohol and Drug Abuse Patient Records regulations: The Federal rules restrict any use of the information to criminally investigate or prosecute any alcohol or drug abuse patient.[facility] HospitalIn the event this information is protected by the Federal Confidentiality of Alcohol and Drug Abuse Patient Records regulations: The Federal rules restrict any use of the information to criminally investigate or prosecute any alcohol or drug abuse patient.[facility] HospitalIn the event this information is protected by the Federal Confidentiality of Alcohol and Drug Abuse Patient Records regulations: The Federal rules restrict any use of the information to criminally investigate or prosecute any alcohol or drug abuse patient.[facility] HospitalIn the event this information is protected by the Federal Confidentiality of Alcohol and Drug Abuse Patient Records regulations: The Federal rules restrict any use of the information to criminally investigate or prosecute any alcohol or drug abuse patient.[facility] HospitalIn the event this information is protected by the Federal Confidentiality of Alcohol and Drug Abuse Patient Records regulations: The Federal rules restrict any use of the information to criminally investigate or prosecute any alcohol or drug abuse patient.[facility]In the event this information is protected by the Federal Confidentiality of Alcohol and Drug Abuse Patient Records regulations: The Federal rules restrict any use of the information to criminally investigate or prosecute any alcohol or drug abuse patient.[facility] HospitalIn the event this information is protected by the Federal Confidentiality of Alcohol and Drug Abuse Patient Records regulations: The Federal rules restrict any use of the information to criminally investigate or prosecute any alcohol or drug abuse patient.[facility] HospitalIn the event this information is protected by the Federal Confidentiality of Alcohol and Drug Abuse Patient Records regulations: The Federal rules restrict any use of the information to criminally investigate or prosecute any alcohol or drug abuse patient.[facility] HospitalIn the event this information is protected by the Federal Confidentiality of Alcohol and Drug Abuse Patient Records regulations: The Federal rules restrict any use of the information to criminally investigate or prosecute any alcohol or drug abuse patient.[facility] HospitalIn the event this information is protected by the Federal Confidentiality of Alcohol and Drug Abuse Patient Records regulations: The Federal rules restrict any use of the information to criminally investigate or prosecute any alcohol or drug abuse patient.[facility] HospitalIn the event this information is protected by the Federal Confidentiality of Alcohol and Drug Abuse Patient Records regulations: The Federal rules restrict any use of the information to criminally investigate or prosecute any alcohol or drug abuse patient.[facility] HospitalIn the event this information is protected by the Federal Confidentiality of Alcohol and Drug Abuse Patient Records regulations: The Federal rules restrict any use of the information to criminally investigate or prosecute any alcohol or drug abuse patient.[facility]In the event this information is protected by the Federal Confidentiality of Alcohol and Drug Abuse Patient Records regulations: The Federal rules restrict any use of the information to criminally investigate or prosecute any alcohol or drug abuse patient.[facility]In the event this information is protected by the Federal Confidentiality of Alcohol and Drug Abuse Patient Records regulations: The Federal rules restrict any use of the information to criminally investigate or prosecute any alcohol or drug abuse patient.[facility]In the event this information is protected by the Federal Confidentiality of Alcohol and Drug Abuse Patient Records regulations: The Federal rules restrict any use of the information to criminally investigate or prosecute any alcohol or drug abuse patient.[facility]In the event this information is protected by the Federal Confidentiality of Alcohol and Drug Abuse Patient Records regulations: The Federal rules restrict any use of the information to criminally investigate or prosecute any alcohol or drug abuse patient.[facility]In the event this information is protected by the Federal Confidentiality of Alcohol and Drug Abuse Patient Records regulations: The Federal rules restrict any use of the information to criminally investigate or prosecute any alcohol or drug abuse patient.[facility]In the event this information is protected by the Federal Confidentiality of Alcohol and Drug Abuse Patient Records regulations: The Federal rules restrict any use of the information to criminally investigate or prosecute any alcohol or drug abuse patient.[facility]In the event this information is protected by the Federal Confidentiality of Alcohol and Drug Abuse Patient Records regulations: The Federal rules restrict any use of the information to criminally investigate or prosecute any alcohol or drug abuse patient.[facility]In the event this information is protected by the Federal Confidentiality of Alcohol and Drug Abuse Patient Records regulations: The Federal rules restrict any use of the information to criminally investigate or prosecute any alcohol or drug abuse patient.[facility]In the event this information is protected by the Federal Confidentiality of Alcohol and Drug Abuse Patient Records regulations: The Federal rules restrict any use of the information to criminally investigate or prosecute any alcohol or drug abuse patient.[facility]In the event this information is protected by the Federal Confidentiality of Alcohol and Drug Abuse Patient Records regulations: The Federal rules restrict any use of the information to criminally investigate or prosecute any alcohol or drug abuse patient.[facility]In the event this information is protected by the Federal Confidentiality of Alcohol and Drug Abuse Patient Records regulations: The Federal rules restrict any use of the information to criminally investigate or prosecute any alcohol or drug abuse patient.[facility] HospitalIn the event this information is protected by the Federal Confidentiality of Alcohol and Drug Abuse Patient Records regulations: The Federal rules restrict any use of the information to criminally investigate or prosecute any alcohol or drug abuse patient.[facility] Care Teams (unrecognized sec tion and content) Auto Appraiser Relationship Specialty Start Date End Date Silvestre Chance DO [address] [place] [address] PCP - General Family Practice 10/20/17 Sonia Fox MD [address] [place] [address] Primary Staff Physician Cardiology 05/21/18 Auto Appraiser Relationship Specialty Start Date End Date Silvestre Chance, DO [address] [place] [address] PCP - General Family Practice 10/20/17 Sonia Fox MD [address] [place] [address] Primary Staff Physician Cardiology 05/21/18 Auto Appraiser Relationship Specialty Start Date End Date Silvestre Chance, DO [address] [place] [address] PCP - General Family Practice 10/20/17 Sonia Fox MD [address] [place] [address] Primary Staff Physician Cardiology 05/21/18 Auto Appraiser Relationship Specialty Start Date End Date Silvestre Chance, DO [address] [place] [address] PCP - General Family Practice 10/20/17 Sonia Fox MD [address] [place] [address] Primary Staff Physician Cardiology 05/21/18 Auto Appraiser Relationship Specialty Start Date End Date Silvestre Chance, DO [address] [place] [address] PCP - General Family Practice 10/20/17 Sonia Fox MD [address] [place] [address] Primary Staff Physician Cardiology 05/21/18 Auto Appraiser Relationship Specialty Start Date End Date Silvestre Chance, DO [address] [place] [address] PCP - General Family Medicine 10/20/17 Sonia Fox MD [address] [place] [address] Primary Staff Physician Cardiology 05/21/18 Auto Appraiser Relationship Specialty Start Date End Date Silvestre Chance, DO [address] [place] [address] PCP - General Family Medicine 10/20/17 Sonia Fox MD [address] [place] [address] Primary Staff Physician Cardiology 05/21/18 Auto Appraiser Relationship Specialty Start Date End Date Silvestre Chance, DO [address] [place] [address] PCP - General Family Medicine 10/20/17 Sonia Fox MD [address] [place] [address] Primary Staff Physician Cardiology 05/21/18 Auto Appraiser Relationship Specialty Start Date End Date Silvestre Chance, DO [address] [place] [address] PCP - General Family Medicine 10/20/17 Sonia Fox MD [address] [place] [address] Primary Staff Physician Cardiology 05/21/18 Auto Appraiser Relationship Specialty Start Date End Date Silvestre Chance, DO [address] [place] [address] PCP - General Family Medicine 10/20/17 Sonia Fox MD [address] [place] [address] Primary Staff Physician Cardiology 05/21/18 Auto Appraiser Relationship Specialty Start Date End Date Silvestre Chance, DO [address] [place] [address] PCP - General Family Medicine 10/20/17 Sonia Fox MD [address] [place] [address] Primary Staff Physician Cardiology 05/21/18 Auto Appraiser Relationship Specialty Start Date End Date Silvestre Chance DO [address] [place] [address] PCP - General Family Medicine 10/20/17 Sonia Fox MD [address] [place] [address] Primary Staff Physician Cardiology 05/21/18 Auto Appraiser Relationship Specialty Start Date End Date Silvestre Chance DO [address] [place] [address] PCP - General Family Medicine 10/20/17 Sonia Fox MD [address] [place] [address] Primary Staff Physician Cardiology 05/21/18 Auto Appraiser Relationship Specialty Start Date End Date Silvestre Chance DO [address] [place] [address] PCP - General Family Medicine 10/20/17 Sonia Fox MD [address] [place] [address] Primary Staff Physician Cardiology 05/21/18 Auto Appraiser Relationship Specialty Start Date End Date Silvestre Chance DO [address] [place] [address] PCP - General Family Medicine 10/20/17 Sonia Fox MD [address] [place] [address] Primary Staff Physician Cardiology 05/21/18 Auto Appraiser Relationship Specialty Start Date End Date Silvestre Chance DO [address] [place] [address] PCP - General Family Medicine 10/20/17 Sonia Fox MD [address] [facility] [place] [address] Primary Staff Physician Cardiology 05/21/18 Auto Appraiser Relationship Specialty Start Date End Date Silvestre Chance DO [address] [place] [address] PCP - General Family Medicine 10/20/17 Sonia Fox MD [address] [facility] [place] [address] Primary Staff Physician Cardiology 05/21/18 Auto Appraiser Relationship Specialty Start Date End Date Silvestre Chance DO [address] [place] [address] PCP - General Family Medicine 10/20/17 Sonia Fox MD [address] [facility] [place] [address] Primary Staff Physician Cardiology 05/21/18 Auto Appraiser Relationship Specialty Start Date End Date Silvestre Chance DO [address] [place] [address] PCP - General Family Medicine 10/20/17 Sam Feldman DO [address] [place] [address] Cardiology 10/12/22 Auto Appraiser Relationship Specialty Start Date End Date Silvestre Chance DO [address] [place] [address] PCP - General Family Medicine 10/20/17 Sam Feldman DO [address] [place] [address] Cardiology 10/12/22 Auto Appraiser Relationship Specialty Start Date End Date Silvestre Chance DO [address] [place] [address] PCP - General Family Medicine 10/20/17 Sam Feldman DO [address] [place] [address] Cardiology 10/12/22 SissenEliu, [facility] [address] [place] [address] Specialty Topline Beading Machine Tender Orthopedics 10/17/22 02/09/23 Auto Appraiser Relationship Specialty Start Date End Date Silvestre Chance DO [address] [place] [address] PCP - General Family Medicine 10/20/17 Sam Feldman DO [address] [place] [address] Cardiology 10/12/22 SissenEliu, [facility] [address] [place] [address] Specialty Topline Beading Machine Tender Orthopedics 10/17/22 02/09/23 Auto Appraiser Relationship Specialty Start Date End Date Silvestre Chance DO [address] [place] [address] PCP - General Family Medicine 10/20/17 Sam Feldman DO [address] [place] [address] Cardiology 10/12/22 SissenBradin, [facility] [address] [place] [address] Specialty Topline Beading Machine Tender Orthopedics 10/17/22 02/09/23 Auto Appraiser Relationship Specialty Start Date End Date Silvestre Chance DO [address] [place] [address] PCP - General Family Medicine 10/20/17 Sam Feldman DO [address] [place] [address] Cardiology 10/12/22 Sissen, Eliu, [facility] [address] [place] [address] Specialty Topline Beading Machine Tender Orthopedics 10/17/22 02/09/23 Auto Appraiser Relationship Specialty Start Date End Date Silvestre Chance DO [address] [place] [address] PCP - General Family Medicine 10/20/17 Sam Feldman DO [address] [place] [address] Cardiology 10/12/22 Sissen, Eliu, [facility] [address] [place] [address] Specialty Topline Beading Machine Tender Orthopedics 10/17/22 02/09/23 Auto Appraiser Relationship Specialty Start Date End Date Silvestre Chance DO [address] [place] [address] PCP - General Family Medicine 10/20/17 Sam Feldman DO [address] [place] [address] Cardiology 10/12/22 Sissen, Eliu, [facility] [address] [place] [address] Specialty Topline Beading Machine Tender Orthopedics 10/17/22 02/09/23 Auto Appraiser Relationship Specialty Start Date End Date Silvestre Chance DO [address] [place] [address] PCP - General Family Medicine 10/20/17 Sam Feldman DO [address] [place] [address] Cardiology 10/12/22 SisEliu gunderson, [facility] [address] [place] [address] Specialty Topline Beading Machine Tender Orthopedics 10/17/22 02/09/23 Auto Appraiser Relationship Specialty Start Date End Date Silvestre Chance DO [address] [place] [address] PCP - General Family Medicine 10/20/17 Sam Feldman DO [address] [place] [address] Cardiology 10/12/22 Eliu Ramos, [facility] [address] [place] [address] Specialty Topline Beading Machine Tender Orthopedics 10/17/22 02/09/23 Auto Appraiser Relationship Specialty Start Date End Date Silvestre Chance DO [address] [place] [address] PCP - General Family Medicine 10/20/17 Sam Feldman DO [address] [place] [address] Cardiology 10/12/22 Eliu Ramos, [facility] [address] [place] [address] Specialty Topline Beading Machine Tender Orthopedics 10/17/22 02/09/23 Auto Appraiser Relationship Specialty Start Date End Date Silvestre Chance DO [address] [place] [address] PCP - General Family Medicine 10/20/17 Sam Felmdan DO [address] [place] [address] Cardiology 10/12/22 Eliu Ramos, [facility] [address] [place] [address] Specialty Topline Beading Machine Tender Orthopedics 10/17/22 02/09/23 Auto Appraiser Relationship Specialty Start Date End Date Silvestre Chance DO [address] [place] [address] PCP - General Family Medicine 10/20/17 Sam Feldman DO [address] [place] [address] Cardiology 10/12/22 Eliu Ramos, [facility] [address] [place] [address] Specialty Topline Beading Machine Tender Orthopedics 10/17/22 02/09/23 Rajesh Ignacio, PT [address] [place] [address] Director Of Retail Marketing Post Acute Care 01/03/23 Auto Appraiser Relationship Specialty Start Date End Date Silvestre Chance DO [address] [place] [address] PCP - General Family Medicine 10/20/17 Sam Feldman DO [address] [place] [address] Cardiology 10/12/22 Eliu Ramos, [facility] [address] [place] [address] Specialty Topline Beading Machine Tender Orthopedics 10/17/22 02/09/23 Rajesh Ignacio, PT [address] [place] [address] Director Of Retail Marketing Post Acute Care 01/03/23 Auto Appraiser Relationship Specialty Start Date End Date Silvestre Chance DO [address] [place] [address] PCP - General Family Medicine 10/20/17 Sam Feldman DO [address] [place] [address] Cardiology 10/12/22 Eliu Ramos, [facility] [address] [place] [address] Specialty Topline Beading Machine Tender Orthopedics 10/17/22 02/09/23 Rajesh Ignacio, PT [address] [place] [address] Director Of Retail Marketing Post Acute Care 01/03/23 Auto Appraiser Relationship Specialty Start Date End Date Silvestre Chance DO [address] [place], [place] [address]11 PCP - General Family Medicine 10/20/17 Sam Feldman DO [address] [place] [address] Cardiology 10/12/22 Eliu Ramos, [facility] [address] [place] [address] Specialty Topline Beading Machine Tender Orthopedics 10/17/22 02/09/23 Rajesh Ignacio, PT [address] [place] [address] Director Of Retail Marketing Post Acute Care 01/03/23 Auto Appraiser Relationship Specialty Start Date End Date Silvestre Chance DO [address] [place] [address] PCP - General Family Medicine 10/20/17 Sam Feldman DO [address] [place] [address] Cardiology 10/12/22 Eliu Ramos, [facility] [address] [place] [address] Specialty Topline Beading Machine Tender Orthopedics 10/17/22 02/09/23 Rajesh Ignacio, PT [address] [place], [place] [id number] Director Of Retail Marketing Post Acute Care 01/03/23 Auto Appraiser Relationship Specialty Start Date End Date Silvestre Chance DO [address] [place] [address] PCP - General Family Medicine 10/20/17 Sam Feldman DO [address] [place] [address] Cardiology 10/12/22 Sissen, Eliu, [facility] [address] [place] [address] Specialty Topline Beading Machine Tender Orthopedics 10/17/22 02/09/23 Auto Appraiser Relationship Specialty Start Date End Date Silvestre Chance DO [address] [place] [address] PCP - General Family Medicine 10/20/17 Sam Feldman DO [address] [place] [address] Cardiology 10/12/22 Sissen, Eliu, [facility] [address] [place] [address] Specialty Topline Beading Machine Tender Orthopedics 10/17/22 02/09/23 Auto Appraiser Relationship Specialty Start Date End Date Silvestre Chance DO [address] [place] [address] PCP - General Family Medicine 10/20/17 Sam Feldman DO [address] [place] [address] Cardiology 10/12/22 Sissen, Eliu, [facility] [address] [place] [address] Specialty Topline Beading Machine Tender Orthopedics 10/17/22 02/09/23 Auto Appraiser Relationship Specialty Start Date End Date Silvestre Chance DO [address] [place] [address] PCP - General Family Medicine 10/20/17 Sam Feldman DO [address] [place] [address] Cardiology 10/12/22 Eliu Ramos, [facility] [address] [place] [address] Specialty Topline Beading Machine Tender Orthopedics 10/17/22 02/09/23 Auto Appraiser Relationship Specialty Start Date End Date Silvestre Chance DO [address] [place] [address] PCP - General Family Medicine 10/20/17 Sam Feldman DO [address] [place] [address] Cardiology 10/12/22 Eliu Ramos, [facility] [address] [place] [address] Specialty Topline Beading Machine Tender Orthopedics 10/17/22 02/09/23 Auto Appraiser Relationship Specialty Start Date End Date Silvestre Chance DO [address] [place] [address] PCP - General Family Medicine 10/20/17 Sam Feldman DO [address] [place] [address] Cardiology 10/12/22 Auto Appraiser Relationship Specialty Start Date End Date Silvestre Chance DO [address] [place] [address] PCP - General Family Medicine 10/20/17 Sam Feldman DO [address] [place] [address] Cardiology 10/12/22 Auto Appraiser Relationship Specialty Start Date End Date Silvestre Chance DO [address] [place] [address] PCP - General Family Medicine 10/20/17 Sam Feldman DO [address] [place] [address] Cardiology 10/12/22 Auto Appraiser Relationship Specialty Start Date End Date Silvestre Chance DO [address] [place] [address] PCP - General Family Medicine 10/20/17 Sam Feldman DO [address] [place] [address] Cardiology 10/12/22 Auto Appraiser Relationship Specialty Start Date End Date Silvestre Chance DO [address] [place] [address] PCP - General Family Medicine 10/20/17 Sam Feldman DO [address] [place] [address] Cardiology 10/12/22 Auto Appraiser Relationship Specialty Start Date End Date Silvestre Chance DO [address] [place] [address] PCP - General Family Medicine 10/20/17 Sam Feldman DO [address] [place] [address] Cardiology 10/12/22 Auto Appraiser Relationship Specialty Start Date End Date Silvestre Chance DO [address] [place] [address] PCP - General Family Medicine 10/20/17 Sam Feldman DO [address] [place] [address] Cardiology 10/12/22 Auto Appraiser Relationship Specialty Start Date End Date Silvestre Chance DO [address] [place] [address] PCP - General Family Medicine 10/20/17 Sam Feldman DO [address] [place] [address] Cardiology 10/12/22 Auto Appraiser Relationship Specialty Start Date End Date Silvestre Chance DO [address] [place] [address] PCP - General Family Medicine 10/20/17 Sam Feldman DO [address] [place] [address] Cardiology 10/12/22 Auto Appraiser Relationship Specialty Start Date End Date Silvestre Chance DO [address] [place] [address] PCP - General Family Medicine 10/20/17 Sam Feldman DO [address] [place] [address] Cardiology 10/12/22 Auto Appraiser Relationship Specialty Start Date End Date Silvestre Chance DO [address] [place] [address] PCP - General Family Medicine 10/20/17 Sam Feldman DO [address] [place] [address] Cardiology 10/12/22 Auto Appraiser Relationship Specialty Start Date End Date Silvestre Chance DO [address] [place] [address] PCP - General Family Medicine 10/20/17 Sam Feldman DO [address] [place] [address] Cardiology 10/12/22 Auto Appraiser Relationship Specialty Start Date End Date Silvestre Chance DO [address] [place] [address] PCP - General Family Medicine 10/20/17 Sam Feldman DO [address] [place] [address] Cardiology 10/12/22 Auto Appraiser Relationship Specialty Start Date End Date Silvestre Chance DO [address] [place] [address] PCP - General Family Medicine 10/20/17 Sam Feldman DO [address] [place] [address] Cardiology 10/12/22 Auto Appraiser Relationship Specialty Start Date End Date Silvestre Chance DO [address] [place] [address] PCP - General Family Medicine 10/20/17 Sam Feldman DO [address] [place] [address] Cardiology 10/12/22 Auto Appraiser Relationship Specialty Start Date End Date Silvestre Chance DO [address] [place] [address] PCP - General Family Medicine 10/20/17 Sam Feldman DO [address] [place] [address] Cardiology 10/12/22 Auto Appraiser Relationship Specialty Start Date End Date Silvestre Chance DO [address] [place] [address] PCP - General Family Medicine 10/20/17 Sam Feldman DO [address] [place] [address] Cardiology 10/12/22 Auto Appraiser Relationship Specialty Start Date End Date Silvestre Chance DO [address] [place] [address] PCP - General Family Medicine 10/20/17 Sam Feldman DO [address] [place] [address] Cardiology 10/12/22 Auto Appraiser Relationship Specialty Start Date End Date Silvestre Chance DO [address] [place] [address] PCP - General Family Medicine 10/20/17 Sam Feldman DO [address] [place] [address] Cardiology 10/12/22 Auto Appraiser Relationship Specialty Start Date End Date Silvestre Chance DO [address] [place] [address] PCP - General Family Medicine 10/20/17 Sam Feldman DO [address] [place] [address] Cardiology 10/12/22 Auto Appraiser Relationship Specialty Start Date End Date Silvestre Chance DO [address] [place] [address] PCP - General Family Medicine 10/20/17 Sam Feldman DO [address] [place] [address] Cardiology 10/12/22 Auto Appraiser Relationship Specialty Start Date End Date Silvestre Chance DO [address] [place] [address] PCP - General Family Medicine 10/20/17 Sam Feldman DO [address] [place] [address] Cardiology 10/12/22 Auto Appraiser Relationship Specialty Start Date End Date Silvestre Chance DO [address] [place] [address] PCP - General Family Medicine 10/20/17 Sam Feldman DO [address] [place] [address] Cardiology 10/12/22 Auto Appraiser Relationship Specialty Start Date End Date iSlvestre Chance DO [address] [place] [address] PCP - General Family Medicine 10/20/17 Sam Feldman DO [address] [place] [address] Cardiology 10/12/22 Auto Appraiser Relationship Specialty Start Date End Date Silvestre Chance DO [address] [place] [address] PCP - General Family Medicine 10/20/17 Sam Feldman DO [address] [place] [address] Cardiology 10/12/22 Eliu Ramos, [facility] [address] [place] [address] Specialty Topline Beading Machine Tender Orthopedics 10/17/22 02/09/23 Rajesh Ignacio, PT [address] [place] [address] Director Of Retail Marketing Post Acute Care 01/03/23 01/18/23 Auto Appraiser Relationship Specialty Start Date End Date Silvestre Chance DO [address] [place] [address] PCP - General Family Medicine 10/20/17 Sonia Fox MD [address] [place] [address] Primary Staff Physician Cardiology 05/21/18 3 Auto Appraiser Relationship Specialty Start Date End Date Silvestre Chance DO [address] [place] [address] PCP - General Family Medicine 10/20/17 Sam Feldman DO [address] [place] [address] Cardiology 10/12/22 Auto Appraiser Relationship Specialty Start Date End Date Silvestre Chance DO [address] [place] [address] PCP - General Family Medicine 10/20/17 Sam Feldman DO [address] [place], [place] [address] Cardiology 10/12/22 Auto Appraiser Relationship Specialty Start Date End Date Silvestre Chance DO [address] [place] [address] PCP - General Family Medicine 10/20/17 Sam Feldman DO [address] [place], [place] [address] Cardiology 10/12/22 Auto Appraiser Relationship Specialty Start Date End Date Silvestre Chance DO [address] [place] [address] PCP - General Family Medicine 10/20/17 Sam Feldman DO [address] [place] [address] Cardiology 10/12/22 Auto Appraiser Relationship Specialty Start Date End Date Silvestre Chance DO [address] [place] [address] PCP - General Family Medicine 10/20/17 Sam Feldman DO [address] [place] [address] Cardiology 10/12/22 Kayla Veloz, HALEY.OVEN BAKER [address] [place] [address] Product Marketing Specialist Family Medicine 02/10/24 Kianna Marques, HALEY.OVEN BAKER [address] [place] [address] Product Marketing Specialist Family Medicine 02/10/24 Auto Appraiser Relationship Specialty Start Date End Date Silvestre Chance DO [address] [place] [address] PCP - General Family Medicine 10/20/17 Sam Feldman DO [address] [place] [address] Cardiology 10/12/22 Kayla Veloz, SUPERVISOR S[employer] SH[employer].OVEN BAKER [address] [place] [address] Product Marketing Specialist Family Medicine 02/10/24 Kianna Marques, SUPERVISOR S[employer] SH[employer].OVEN BAKER [address] [place] [address] [facility] 02/10/24 Auto Appraiser Relationship Specialty Start Date End Date Silvestre Chance DO [address] [place] [address] PCP - General Family Medicine 10/20/17 Sam Feldman DO [address] [place] [address] Cardiology 10/12/22 Kayla Veloz, SUPERVISOR S[employer].OVEN BAKER [address] [place] [address] Product Marketing Specialist Family Medicine 02/10/24 Kianna Marques, SUPERVISOR S[employer] SH[employer].OVEN BAKER [address] [place] [address] Product Marketing Specialist Family Medicine 02/10/24 Auto Appraiser Relationship Specialty Start Date End Date Silvestre Chance DO [address] [place] [address] PCP - General Family Medicine 10/20/17 Sam Feldman DO [address] [place] [address] Cardiology 10/12/22 Kayla Veloz, SUPERVISOR S[employer].OVEN BAKER [address] [place] [address] [facility] 02/10/24 JeraldKianna, SUPERVISOR S[employer].OVEN BAKER [address] [place] [address] [facility] 02/10/24 Auto Appraiser Relationship Specialty Start Date End Date Silvestre Chance DO [address] [place] [address] PCP - General Family Medicine 10/20/17 Kayla Veloz, SUPERVISOR [employer].OVEN BAKER [address] [place] [address] [facility] 02/10/24 JeraldKianna, SUPERVISOR S[employer] SH[employer].OVEN BAKER [address] [place] [address] [facility] 02/10/24 Auto Appraiser Relationship Specialty Start Date End Date Silvestre Chance DO [address] [place] [address] PCP - General Family Medicine 10/20/17 Kayla Veloz, SUPERVISOR [employer].OVEN BAKER [address] [place] [address] Product Marketing Specialist Family [facility] 02/10/24 Kianna Marques, SUPERVISOR S[employer].OVEN BAKER [address] [place] [address] Product Marketing Specialist [facility] 02/10/24 Auto Appraiser Relationship Specialty Start Date End Date Silvestre Chance DO [address] [place] [address] PCP - General Family Medicine 10/20/17 Kayla Veloz, SUPERVISOR S[employer].OVEN BAKER [address] [place] [address] Product Marketing Specialist [facility] 02/10/24 Kianna Marques, SUPERVISOR S[employer].OVEN BAKER [address] [place] [address] [facility] 02/10/24 Auto Appraiser Relationship Specialty Start Date End Date Silvestre Chance DO [address] [place] [address] PCP - General Family Medicine 10/20/17 Kayla Veloz, SUPERVISOR S[employer] SH[employer].OVEN BAKER [address] [place] [address] [facility] 02/10/24 Kianna Marques, SUPERVISOR S[employer] SH[employer].OVEN BAKER [address] [place] [address] [facility] 02/10/24 Auto Appraiser Relationship Specialty Start Date End Date Silvestre Chance DO [address] [place] [address] PCP - General Family Medicine 10/20/17 Kayla Veloz, SUPERVISOR S[employer].OVEN BAKER [address] [place] [address] Product Marketing Specialist Family Medicine 02/10/24 Kianna Marques, SUPERVISOR S[employer].OVEN BAKER [address] [facility] [place] [address] Product Marketing Specialist Family Medicine 02/10/24 Auto Appraiser Relationship Specialty Start Date End Date Silvestre Chance DO [address] [facility] [place] [address] PCP - General Family Medicine 10/20/17 Kayla Veloz, SUPERVISOR S[employer] SH[employer].OVEN BAKER [address] [place] [address] Product Marketing Specialist Family Medicine 02/10/24 Kianna Marques, SUPERVISOR S[employer] SH[employer].OVEN BAKER [address] [facility] [place] [address] Product Marketing Specialist Family [facility] 02/10/24 Auto Appraiser Relationship Specialty Start Date End Date Silvestre Chance DO [address] [facility] [place] [address] PCP - General Family Medicine 10/20/17 Kayla Veloz, SUPERVISOR S[employer] SH[employer].OVEN BAKER [address] [facility] [place] [address] Product Marketing Specialist Family Medicine 02/10/24 Kianna Marques, SUPERVISOR S[employer].OVEN BAKER [address] [place] [address] Product Marketing Specialist Family [facility] 02/10/24 Auto Appraiser Relationship Specialty Start Date End Date Silvestre Chanec DO [address] [place] [address] PCP - General Family Medicine 10/20/17 Kianna Marques, SUPERVISOR S[employer].OVEN BAKER [address] [place] [address] [facility] 02/10/24 Auto Appraiser Relationship Specialty Start Date End Date Silvestre Chance DO [address] [place] [address] PCP - General Family Medicine 10/20/17 Kianna Marques, SUPERVISOR SIGN SHOP.OVEN BAKER [address] [place] [address] [facility] Marketing [facility]ist[facility] 02/10/24 Auto Appraiser Relationship Specialty Start Date End Date Silvestre Chance DO [address] [place] [address] PCP - General Family Medicine 10/20/17 Kianna Marques, SUPERVISOR SIGN SHOP.OVEN BAKER [address] [place] [address] Product Marketing [facility]ist[facility] 02/10/24 Auto Appraiser Relationship Specialty Start Date End Date Silvestre Chance DO [address] [place] [address] PCP - General Family Medicine 10/20/17 Kianna Marques, SUPERVISOR SIGN SHOP.OVEN BAKER [address] [place] [address] Product Marketing Specialist Family [facility] 02/10/24 Auto Appraiser Relationship Specialty Start Date End Date Silvestre Chance DO [address] [place] [address] PCP - General Family Medicine 10/20/17 Kianna Marques, SUPERVISOR SIGN SHOP.OVEN BAKER [address] [place] [address] Product Marketing [facility]ist[facility] 02/10/24 Auto Appraiser Relationship Specialty Start Date End Date Silvestre Chance DO [address] [place] [address] PCP - General Family Medicine 10/20/17 Eliu Ramos, PSS [facility] [address] [place] [address] Specialty Topline Beading Machine Tender Orthopedics 10/17/22 09/03/24 Kianna Marques, SUPERVISOR SIGN SHOP.OVEN BAKER [address] [place] [address] Product Marketing Specialist Family Medicine 02/10/24 Sam Feldman [address] [place] [address] Cardiology 07/15/24 Auto Appraiser Relationship Specialty Start Date End Date Silvestre Chance DO [address] [place] [address] PCP - General Family Medicine 10/20/17 Eliu Ramos, PSS [facility] [address] [place] [address] Specialty Topline Beading Machine Tender Orthopedics 10/17/22 09/03/24 Kianna Marques, SUPERVISOR SIGN SHOP.OVEN BAKER [address] [place] [address] Product Marketing Specialist Family Medicine 02/10/24 Sam Feldman [address] [place] [address] Cardiology 07/15/24 Auto Appraiser Relationship Specialty Start Date End Date Silvestre Chance DO [address] [place] [address] PCP - General Family Medicine 10/20/17 SissenBradin, PSS [facility] [address] [place] [address] Specialty Topline Beading Machine Tender Orthopedics 10/17/22 09/03/24 Kianna Marques, SUPERVISOR SIGN SHOP.OVEN BAKER [address] [place] [address] Product Marketing Specialist Family Medicine 02/10/24 Sam Feldman [address] [place] [address] Cardiology 07/15/24 Auto Appraiser Relationship Specialty Start Date End Date Silvestre Chance DO [address] [place] [address] PCP - General Family Medicine 10/20/17 SisBrad gundersonin, [facility] [address] [place] [address] Specialty Topline Beading Machine Tender Orthopedics 10/17/22 09/03/24 Kianna Marques, SUPERVISOR SIGN SHOP.OVEN BAKER [address] [place] [address] Product Marketing Specialist Family Medicine 02/10/24 Sam Feldman [address] [place] [address] Cardiology 07/15/24 Auto Appraiser Relationship Specialty Start Date End Date Silvestre Chance DO [address] [place] [address] PCP - General Family Medicine 10/20/17 Eliu Ramos, PSS [facility] [address] [place] [address] Specialty Topline Beading Machine Tender Orthopedics 10/17/22 09/03/24 Kianna Marques, HALEY.OVEN BAKER [address] [place] [address] Product Marketing Specialist Family [facility] 02/10/24 Sam Feldman [address] [place] [address] Cardiology 07/15/24 Auto Appraiser Relationship Specialty Start Date End Date Silvestre Chance DO [address] [place] [address] PCP - General Family Medicine 10/20/17 Eliu Ramos, PSS [facility] [address] [place] [address] Specialty Topline Beading Machine Tender Orthopedics 10/17/22 09/03/24 Kianna Marques, SUPERVISOR SIGN SHOP.OVEN BAKER [address] [place] [address] Product Marketing Specialist [facility] 02/10/24 Sam Feldman [address] [place] [address] Cardiology 07/15/24 Auto Appraiser Relationship Specialty Start Date End Date Silvestre Chance DO [address] [place] [address] PCP - General Family Medicine 10/20/17 Eliu Ramos, PSS [facility] [address] [place] [address] Specialty Topline Beading Machine Tender Orthopedics 10/17/22 09/03/24 Kianna Marques SUPERVISOR SIGN SHOP.OVEN BAKER [address] [place] [address] Product Marketing Specialist Family Medicine 02/10/24 Sam Feldman [address] [place] [address] Cardiology 07/15/24 Auto Appraiser Relationship Specialty Start Date End Date Silvestre Chance DO [address] [place] [address] PCP - General Family Medicine 10/20/17 Eliu Ramos, PSS [facility] [address] [place] [address] Specialty Topline Beading Machine Tender Orthopedics 10/17/22 09/03/24 Kianna Marques, SUPERVISOR SIGN SHOP.OVEN BAKER [address] [place] [address] Product Marketing Specialist Family Medicine 02/10/24 Sam Feldman [address] [place] [address] Cardiology 07/15/24 Auto Appraiser Relationship Specialty Start Date End Date Silvestre Chance DO [address] [place] [address] PCP - General Family Medicine 10/20/17 Eliu aRmos, PSS [facility] [address] [place] [address] Specialty Topline Beading Machine Tender Orthopedics 10/17/22 09/03/24 Kianna Marques, SUPERVISOR SIGN SHOP.OVEN BAKER [address] [place] [address] Product Marketing Specialist Family Medicine 02/10/24 Sam Feldman [address] [place] [address] Cardiology 07/15/24 Auto Appraiser Relationship Specialty Start Date End Date Silvestre Chance DO [address] [place] [address] PCP - General Family Medicine 10/20/17 Eliu Ramos, PSS [facility] [address] [place] [address] Specialty Topline Beading Machine Tender Orthopedics 10/17/22 09/03/24 Kianna Marques SUPERVISOR SIGN SHOP.OVEN BAKER [address] [place] [address] Product Marketing Specialist Family Medicine 02/10/24 Auto Appraiser Relationship Specialty Start Date End Date Silvestre Chance DO [address] [place] [address] PCP - General Family Medicine 10/20/17 Eilu Ramos, PSS [facility] [address] [place] [address] Specialty Topline Beading Machine Tender Orthopedics 10/17/22 09/03/24 Kianna Marques, HALEY.OVEN BAKER [address] [place] [address] Product Marketing Specialist Family Medicine 02/10/24 Sam Feldman [address] [place] [address] Cardiology 07/15/24 Nela Ferreira MD [address] [address] Home Care Provider Orthopedics 08/15/24 Nela Ferreira MD [address] [address] Referring Orthopedics 08/15/24 Rajesh Ignacio, PT [address] [place] [address] Director Of Retail Marketing Post Acute Care 08/15/24 Auto Appraiser Relationship Specialty Start Date End Date Silvestre Chance DO [address] [place] [address] PCP - General Family Medicine 10/20/17 Eliu Ramos, PSS [facility] [address] [place] [address] Specialty Topline Beading Machine Tender Orthopedics 10/17/22 09/03/24 Kianna Marques APRN.OVEN BAKER [address] [place] [address] Product Marketing Specialist Family Medicine 02/10/24 Sam Feldman [address] [place] [address] Cardiology 07/15/24 Nela Ferreira MD [address] [place] [address] Home Care Provider Orthopedics 08/15/24 Nela Ferreira MD [address] [place] [address] Referring Orthopedics 08/15/24 Rajesh Ignacio, PT [address] [place] [address] Director Of Retail Marketing Post Acute Care 08/15/24 Auto Appraiser Relationship Specialty Start Date End Date Silvestre Chance DO [address] [place] [address] PCP - General Family Medicine 10/20/17 Eliu Ramos, PSS [facility] [address] [place] [address] Specialty Topline Beading Machine Tender Orthopedics 10/17/22 09/03/24 Kianna Marques APRN.OVEN BAKER [address] [place] [address] Product Marketing Specialist Family [facility] 02/10/24 Sam Feldman [address] [place], [place] [address] Cardiology 07/15/24 Nela Ferreira MD [address] [place] [address] Home Care Provider Orthopedics 08/15/24 Nela Ferreira MD [address] [place] [address] Referring Orthopedics 08/15/24 Rajesh Ignacio, PT [address] [place] [address] Director Of Retail Marketing Post Acute Care 08/15/24 Auto Appraiser Relationship Specialty Start Date End Date Silvestre Chance DO [address] [place] [address] PCP - General Family Medicine 10/20/17 Eliu Ramos, [facility] [address] [place] [address] Specialty Topline Beading Machine Tender Orthopedics 10/17/22 09/03/24 Kianna Marques APRN.OVEN BAKER [address] [place] [address] Product Marketing Specialist Family Medicine 02/10/24 Sam Feldman [address] [place] [address] Cardiology 07/15/24 Nela Ferreira MD [address] [address] Home Care Provider Orthopedics 08/15/24 Nela Ferreira MD [address] [address] Referring Orthopedics 08/15/24 Rajesh Ignacio, PT [address] [place] [address] Director Of Retail Marketing Post Acute Care 08/15/24 Auto Appraiser Relationship Specialty Start Date End Date Silvestre Chance DO [address] [place] [address] PCP - General Family Medicine 10/20/17 Eliu Ramos [facility] [address] [place] [address] Specialty Topline Beading Machine Tender Orthopedics 10/17/22 09/03/24 Kianna Marques APRN.OVEN BAKER [address] [place] [address] Product Marketing Specialist Family Medicine 02/10/24 Sam Feldman [address] [place] [address] Cardiology 07/15/24 Nela Ferreira MD [address] [address] Home Care Provider Orthopedics 08/15/24 Nela Ferreira MD [address] [address] Referring Orthopedics 08/15/24 Rajesh Ignacio, PT [address] [place] [address] Director Of Retail Marketing Post Acute Care 08/15/24 Sandy Merida, HALEY.OVEN BAKER [address] [place], [place] [address] Product Marketing Specialist Family Medicine 08/18/24 Auto Appraiser Relationship Specialty Start Date End Date Silvestre Chance DO [address] [place], [place] [address] PCP - General Family Medicine 10/20/17 Eliu Ramos [facility] [address] [place] [address] Specialty Topline Beading Machine Tender Orthopedics 10/17/22 09/03/24 Kianna Marques APRN.OVEN BAKER [address] [place] [address] Product Marketing Specialist [facility] 02/10/24 Sam Feldman [address] [place] [address] Cardiology 07/15/24 Nela Ferreira MD [address] [id number] Home Care Provider Orthopedics 08/15/24 Nela Ferreira MD [address] [address] Referring Orthopedics 08/15/24 Rajesh Ignacio, PT [address] [place] [address] Director Of Retail Marketing Post Acute Care 08/15/24 Sandy Merida, SUPERVISOR SIGN SHOP.OVEN BAKER [address] [place], [place] [address] Product Marketing Specialist Family Medicine 08/18/24 Reason for Visit (unrecogniz ed section and content) Reason Comments Consult Specialty Diagnoses / Procedures Referred By Contac t Referred To Contact Diagnoses Primary osteoarthritis of left knee Procedures REFER TO [facility] - PREOPERATIVE OPTIMIZATION OFFICE/OUTPATIENT NEW HIGH MDM 60 MINUTES Eren Coyle, DO [address] [place] [address] Phone: tel: fax: Referral ID Status Reason Start Date Expiration Date V isits Requested Visits Authorized [id number] Closed PCP Requested Referral 04/03/2024 04/03/2025 1 1 Reason Comments PT Discharge Specialty Diagnoses / Procedures Referred By Contac t Referred To Contact Physical Therapy / PHYSICAL THERAPY Diagnoses Quadriceps strengthening right knee Procedures EST RS PT ORTH MSK Nela Ferreira MD [address] [address] Phone: tel: fax: Анан Perez, PT, DPT Referral ID Status Reason Start Date Expiration Date V isits Requested Visits Authorized [id number] Authorized 03/05/2024 03/04/2025 20 20 Reason Comments Physical Therapy Reason Comments PT Progress Note Specialty Diagnoses / Procedures Referred By Contac t Referred To Contact [facility] Diagnoses Aftercare following right knee joint replacement surgery Procedures CONSULT TO PHYSICAL THERAPY PHYSICAL THERAPY EVALUATION HIGH COMPLEX 45 MINS Nela Ferreira MD [address] [address] [facility] [place] [address] [place] [address] Referral ID Status Reason Start Date Expiration Date V isits Requested Visits Authorized [id number] Closed Auto-Generate d Referral 03/05/2023 03/04/2024 1 1 Reason Comments PT Eval Referral ID Status Reason Start Date Expiration Date Visits Requested Visits Authorized [id number] Authorized Auto-Generat ed Referral 03/05/2023 03/04/2024 20 20 Specialty Diagnoses / Procedures Referred By Contac t Referred To Contact [facility] Diagnoses Primary osteoarthritis of left knee Procedures CONSULT TO PHYSICAL THERAPY PHYSICAL THERAPY EVALUATION HIGH COMPLEX 45 MINS Nela Ferreira MD [address] [address] [facility] [place] [address] [place] [address] Referral ID Status Reason Start Date Expiration Date Visits Requested Visits Authorized [id number] Authorized Auto-Generat ed Referral 03/05/2022 03/04/2023 20 20 Reason Onset Date Comments Refill Request 08/26/2021 Reason Comments Patient Question Reason Onset Date Comments [facility] Health Navigation Outreach 09/28/2021 [place] Care Gaps Reason Comments CARD Follow Up Annual No new cardiac con cerns Reason Comments Cyst Vaginal Reason Onset Date Comments [facility] Health Navigation Outreach 12/08/2021 [place] Attribution Reason Comments Results Reason Comments Follow Up High HR last couple weeks Reason Onset Date Comments [facility] Health Navigation Outreach 04/11/2022 Care Gaps Reason Comments Reminder Call Reason Comments Established Patient Swelling Knee Pain Reason Onset Date Comments [facility] Navigation Outreach 06/26/2022 [place] Care Gap Reason Onset Date Comments Refill Request 08/29/2022 Reason Onset Date Comments [facility] Health Navigation Outreach 09/11/2022 [place] care gap Reason Comments Ptosis Evaluation Reason Comments Patient Question Blood pressure 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 Comments Post Op Call Reason Comments Blood Management Reason Comments Post Op Reason Onset Date Comments [facility] Health Navigation Outreach 11/09/2022 [place] Care Gap Reason Comments Appointment Reason Comments Question Reason Comments Pre-Op Teaching Specialty Diagnoses / Procedures Referred By Contac t Referred To Contact CT IMAGING Diagnoses Primary osteoarthritis of right knee Preoperative testing Procedures CT KNEE WO IVCON RIGHT CT LOWER EXTREMITY W/O CONTRAST MATERIAL Sam Fabian PA-C [address] [place] [address] [place] [address] Referral ID Status Reason Start Date Expiration Date V isits Requested Visits Authorized [id number] Closed Auto-Generate d Referral 11/27/2022 12/27/2023 1 1 Reason Comments Post-op (Ophthalmology) Both Eyes s/p BU L BLEPH 10/26/22 Reason Comments Cardiac Clearance Reason Comments Home Care Confirmation Call Specialty Diagnoses / Procedures Referred By Contac t Referred To Contact [facility] [address] [place] [address] Referral ID Status Reason Start Date Expiration Date Visits Re quested Visits Authorized [id number] 1 1 Reason Comments Established Patient Follow Up Post Op Reason Comments LESION, SKIN Reason Comments Calf Swelling Reason Comments Edema R knee calf swelling x 2 days Reason Comments Erroneous encounter-disregard Reason Comments Memory Loss confusion Reason Comments memory loss for a period of time Sunday afternoon Pt remembers getting into saunaat 2:02 remembers getting out standing in front of mirror undressed putting stuff in hair th next thing she was totally dress hair dry sitting in front of her computer. Someone called to ask if she was ok at 3:33. Said she spoke with her a bit ago was irritable. But spoke normally. Specialty Diagnoses / Procedures Referred By Sarwat solomon Referred To Contact CT IMAGING Diagnoses Acute confusion Procedures CT BRAIN WO IVCON CT HEAD/BRAIN W/O CONTRAST MATERIAL Kayla Veloz, SUPERVISOR SIGN SHOP.OVEN BAKER [address] [place] [address] [place] [address] Referral ID Status Reason Start Date Expiration Date V isits Requested Visits Authorized [id number] Closed Auto-Generate d Referral 07/02/2023 07/31/2024 1 1 Reason Onset Date Comments Population Health Navigation Outreach 07/18/2023 [place] AWV/HCC and care gaps Reason Comments Patient Update Medication Request Reason Comments CT brain results Reason Comments Triage Phone/Referral Reason Comments Results Specialty Diagnoses / Procedures Referred By Sarwat solomon Referred To Contact [facility] Diagnoses Meningioma (HCC) Abnormal CT scan of head Acute confusion Procedures MRI BRAIN WO/W IVCON MRI BRAIN BRAIN STEM W/O W/CONTRAST MATERIAL Kayla Veloz, SUPERVISOR SIGN SHOP.OVEN BAKER [address] [place] [address] [place] [address] Referral ID Status Reason Start Date Expiration Date V isits Requested Visits Authorized [id number] Closed Auto-Generate d Referral 07/20/2023 08/18/2024 1 1 Reason Comments New Patient Specialty Diagnoses / Procedures Referred By Sarwat solomon Referred To Contact Neurosurgery Diagnoses Meningioma (HCC) Abnormal CT scan of head Acute confusion Procedures CONSULT TO NEUROSURGERY OFFICE/OUTPATIENT NEW HIGH MDM 60 MINUTES Kayla Veloz, SUPERVISOR SIGN SHOP.OVEN BAKER [address] [place] [address] Referral ID Status Reason Start Date Expiration Date V isits Requested Visits Authorized [id number] Closed PCP Requested Referral 07/20/2023 07/19/2024 1 1 Reason Comments Patient Request Patient Update Reason Comments Patient Update Reason Onset Date Comments Refill Request 08/28/2023 Reason Comments Established Patient Knee Pain Knee Replacement Reason Comments Knee Pain right knee replaceme nt, getting worst Reason Comments Returning Patient's Call Reason Onset Date Comments Population Health Navigation Outreach 09/27/2023 Sam Martinez PCSA Reason Comments Knee Pain Reason Comments Follow Up Knee Replacement Reason Comments Right Knee Pain Reason Comments Follow Up Knee Replacement Reason Comments Orders Reason Comments Medicare Wellness Exam Reason Comments Leg Pain Back Pain Reason Comments Knee Pain Reason Comments Knee Pain Left Reason Comments PT Re-eval Reason Comments Cardiology Follow Up LKR scheduled 2024 @ [facility] Reason Comments Follow Up Reason Comments Follow Up ReikiEKG 06/06/24Denie s cardiac concernsLOV 06/06/24Stress 11/30/22Echo 03/28/22 Reason Comments Patient Update Appointment Reason Comments had knee surgery scheduled a nd developed hives Pt states was doing laudry and drapped clothes over left arm got a small pot on that arm that itched terrible but about 20 minutes later was covered in hives. Feels it ma have been spider bite Reason Comments Pre-Op Visit Knee Pain Established Patient Reason Comments Home Care Confirmation call Reason Comments Home Care Post op dressing sat urated Reason Comments Home Care Pt would like a new silverlon FOR RECORDS PERTAINING TO PATIENTS WHO ARE OR HAVE BEEN ENROLLED IN A CHEMICAL DEPENDENCY/SUBSTANCEABUSE PROGRAM, SOME INFORMATION MAY BE OMITTED. This clinical summary was aggregated from multiple sources. Caution should be exercised in using it in the provision of clinical care. This summary normalizes information from multiple sources, and as a consequence, information in this document may materially change the coding, format and clinical context of patient data. In addition, data may be omitted in some cases. CLINICAL DECISIONS SHOULD BE BASED ON THE PRIMARY CLINICAL RECORDS. [employer] provides no warranty or guarantee of the accuracy or completeness of information in this document.
--- NOTE | 2024-08-22 06:23 | EDS_ITS ---
HPI History of Present Illness Chief Complaint: Rash Informant: patient and spouse/S.O. Narrative Narrative: Patient is a 74-year-old female with past medical history of hypertension. She underwent a left knee replacement roughly 1 week ago. She states that she has been intermittently taking oxycodone following the surgery for pain relief. She states she has been on this in the past without any issues. She states that there has been no new exposures. She states that her whom she lives with does not have any rash. She reports she went to bed feeling normally and then awoke 1 to 2 hours later and noticed that she was itching. When she looked in the mirror she had a red rash across her chest arms upper legs and back. She denies any trouble breathing or swallowing but has concerned this could happen based on the sudden onset of a rash and therefore comes in for evaluation [facility] Home Medications ?Medication ?Instructions ?Recorded ?Last Taken ?Type krill oil 500 mg capsule 1,500 mg PO 11/03/15 Unknown History metoprolol succinate 25 mg 25 mg PO DAILY 08/22/24 Unk nown History tablet,extended release 24 hr ondansetron 4 mg disintegrating 4 mg PO Q8H PRN PRN na usea and 08/22/24 Unknown History tablet vomiting Allergy/AdvReac Type Severity Reaction Status Date / Time codeine Allergy Other Verified 08/22/24 05:13 [id number] Reductase AdvReac Other Verified 08/22/24 05:13 Inhibitor Surgical History (Updated 08/22/24 @ 05:14 by Eunice Lewis) History of total left knee replacement (TKR) Social History Smoking Status: Former smoker ROS ROS ED Constitutional Constitutional ED: Denies chills or fever(s) Eyes Eyes: Denies blurry vision or change in vision ENT ENT ED: Denies rhinorrhea or sore throat Cardiovascular Cardiovascular: Denies chest pain Respiratory/Chest Respiratory/Chest: Denies cough or dyspnea Gastrointestinal Gastrointestinal: Denies abdominal pain, diarrhea, nausea or vomiting Genitourinary Genitourinary ED: Denies dysuria Musculoskeletal Musculoskeletal: Reports other Details: Positive left leg/knee pain Integumentary Reports rash Neurologic Neurologic: Denies headache(s) Hematologic/Lymphatic Hematologic/Lymphatic: Denies easy bleeding or easy bruising Allergic/Immunologic Allergic/Immunologic ED: Reports urticaria; Denies mouth swelling or tongue swelling EXAM Physical Exam Const Vital Signs: 08/22/24 05:10 08/22/24 06:31 Temperature 97.6 F L 98 F Temperature Source Oral Pulse Rate 74 74 Respiratory Rate 16 16 Blood Pressure 111/70 127/87 H Blood Pressure Mean 83 100 Pulse Ox 98 99 Oxygen Delivery Method Room Air Positive well nourished and well developed General Appearance ED: well developed; Negative for pallor HEENT Reports moist mucous membranes HEENT Narrative: No tongue or lip swelling no oral lesions no airway edema or compromise No findings of angioedema or anaphylaxis Eyes PERRL and EOMs intact bilaterally General Eye ED: Negative for scleral icterus Neck supple and no JVD Neck Narrative: No brawny edema in the submental space to suggest Vijay's angina Resp normal respiratory effort and clear to auscultation bilaterally Resp Narrative: No nasal flaring retractions tachypnea or accessory muscle use Cardio regular rate and regular rhythm Extremity Extremity Narrative: Postsurgical changes to the left knee consistent with recent joint replacement without secondary findings to suggest infection Neuro oriented x3, CN's II-XII intact bilaterally and no sensory deficits noted Sensorium / Orientation: alert Psych mental status grossly normal Skin Skin Narrative: Patient surgical wound is clean dry and intact without secondary findings to suggest infection Patient does have erythematous blanchable urticarial lesions across the chest abdomen back arms upper thighs and face consistent with acute allergic reaction No involvement of the palms or soles No desquamation of tissue No vesicular or pustule changes General Skin Exam: Negative for jaundice or pallor MDM MDM MDM Narrative Medical decision making narrative: Patient arrived to the ER with stable vitals and in no acute respiratory distress. By physical exam she is having acute allergic reaction but there is no signs of angioedema or anaphylaxis so there is no need for airway stabilization. As there is no signs of secondary infection such as cellulitis or abscess I do not feel the need for laboratory studies. I discussed with patient that she would benefit from the allergic reaction cocktail plus or minus epinephrine even though she does not have angioedema based on the sudden onset of symptoms and the diffuse nature of them. Patient states she does not want any medication given at this time. As patient denies any new exposures and no one else at home has a rash the exact cause of her reaction is unknown. With concern that she could progress to angioedema or anaphylaxis I did elect to watch the patient for an hour in the ER. On reevaluation she is resting comfortably there remains no signs of airway edema or compromise. Therefore the chance for patient progressing to this is extremely low as there is been no exam findings of it over the last 2 hours and patient is otherwise safe for discharge. History & Record Review Discussion w/independent historian: Patient and Significant other Discharge Plan Triage Chief Complaint: Rash ED Provider: Boris Huynh Dx/Rx/DC Orders Clinical Impression: Allergic reaction, Urticaria, Hypertension Instructions: ED General Allergic Reactions, ED Hives (Adult) Prescriptions: No Action krill oil 500 MG capsule 1,500 mg PO metoprolol succinate 25 mg tablet extended release 24 hr 25 mg PO DAILY ondansetron 4 mg tablet,disintegrating 4 mg PO Q8H PRN PRN (Reason: nausea and vomiting) Primary Care Provider: Silvestre Chance Referrals: Silvestre Chance DO [Primary Care Provider] - Activity Restrictions/Additional Instructions: You may continue to take 50 mg which is 2 pills of [id number] Benadryl up to 3 times a day as well as 40 mg or 2 pills of Pepcid once a day to help control any rash/itch. If you have difficulty breathing or swallowing or any further concerns please return to the ER for repeat evaluation Print Language: Kyrgyz Disposition Disposition: Home, Self Care Discharge Date/Time: 08/22/24 06:31
[2024-08-22] MEDS: Famotidine 20 MG Tablet 40 MG PO (06:29)
[2024-08-22] MEDS: DiphenhydrAMINE 25 MG Capsule 50 MG PO (06:29)
[2024-08-22 06:31] VITALS: BP 127/87; PULSE 74; RESP 16; TEMP 36.6; O2SAT 99
== END 2024-08-22 06:31 | disposition home or self-care (01) ==
PROVIDERS: Emergency Provider Emergency Medicine; PCP Student in an Organized Health Care Education/Training Program; Visit Provider Emergency Medicine
DX: T78.40XA Allergy, unspecified, initial encounter (principal); I10 Essential (primary) hypertension; L50.9 Urticaria, unspecified; Z79.899 Other long term (current) drug therapy; Z87.891 Personal history of nicotine dependence; X58.XXXA Exposure to other specified factors, initial encounter
CPT/HCPCS: 99283